=== PATIENT | male | born 1960 | race Caucasian/White ===

== ENCOUNTER → 2016-11-17 | Outpatient (CLI) | payer OTHER ==
[~2016-11-17] MED LIST: ACET325T96 PO; CARB100C2 PO; CARB1CAP10 PO; CARB1SOL8 OTB; CARB200T PO; CLIN1SOL TOP; CLIN300C10 PO; CLR10 PO; DOCU-94 PO; KETO2SHA5 TOP; KPP/1000 PO; LEVE750T PO; LOPE-5 PO; LORA-741 PO; MAGNSUS5 PO; MCRK20 PO; MOML PO; PANT40TA PO; POLY335019 PO; POTA-335 PO; PROM25TA16 PO; PROP10TA7 PO; SERT25TA PO; TOPI50TA16 PO; [UNRECOGNIZED DRUG - CODE] NAE; [UNRECOGNIZED DRUG - CODE] PO; [UNRECOGNIZED DRUG - CODE] PO; [UNRECOGNIZED DRUG - CODE] TOP
--- NOTE | 2016-11-17 16:49 | DIAGNOSTIC IMAGING REPORT ---
LEFT THIRD FINGER 3 VIEWS CLINICAL HISTORY: Third finger bruising and swelling. FINDINGS: 3 views of the left third finger are obtained. No prior studies are available for comparison at the time of dictation. The skeletal structures appear osteopenic. No fracture is seen. Arthritic change is noted in the interphalangeal joints, distal greater than proximal. The third metacarpophalangeal joint appears preserved. Soft tissue swelling is present in the distal finger. No radiodense foreign body is identified. No subcutaneous gas is seen. IMPRESSION: Soft tissue swelling and arthritic change as above. No fracture is identified. Electronically signed by: Vaughn Santana M.D. 11/17/2016 4:48 PM Dictated Date/Time: 11/17/2016 4:47 PM
== END | disposition home or self-care (01) ==
LOC: C.RAD 16:16
PROVIDERS: ATTEND Plastic Surgery
DX: S69.92XA Unspecified injury of left wrist, hand and finger(s), initial encounter (principal); X58.XXXA Exposure to other specified factors, initial encounter; R58 Hemorrhage, not elsewhere classified; M79.9 Soft tissue disorder, unspecified

== ENCOUNTER 2016-11-18 20:07 | Emergency (ER) | payer OTHER ==
[~2016-11-18 20:07] MED LIST changes: -CARB100C2 PO; -CARB200T PO; -LEVE750T PO; -LORA-741 PO; -MCRK20 PO; -MOML PO; -SERT25TA PO
[2016-11-18 20:19] VITALS: TEMP 37
[2016-11-18 21:18] LABS: BASO % 0.2 %; BASO ABS # 0.01 K/uL (0-0.2); COMPLETE YES; EOS % 1.8 %; HEMATOCRIT 37.6 % (42-52); IG% 0.2 %; LYMPH % 16.2 %; LYMPH ABS # 0.88 K/uL (1.2-3.4); MEAN CELL VOLUME 93.5 fL (80-100); MEAN CORPUSCULAR HEMOGLOBIN 32.8 pg (25-34); MEAN CORPUSCULAR HGB CONC 35.1 g/dl (32-36); MEAN PLATELET VOLUME 9.5 fL (7.4-10.4); MONO % 7.4 %; NEUT % 74.2 %; PLATELET COUNT 194 K/uL (130-400); RED BLOOD COUNT 4.02 M/uL (4.7-6.1); WHITE BLOOD COUNT 5.42 K/uL (4.8-10.8)
[2016-11-18 21:35] LABS: BLOOD UREA NITROGEN 12 mg/dl (7-18); BUN/CREATININE RATIO 13.6 (10-20); CARBON DIOXIDE 22 mmol/L (21-32); CHLORIDE 108 mmol/L (98-107); CREATININE 0.91 mg/dl (0.60-1.40); GLUCOSE 126 mg/dl (70-99); POTASSIUM 3.9 mmol/L (3.5-5.1); SODIUM 141 mmol/L (136-145)
--- NOTE | 2016-11-18 21:44 | DIAGNOSTIC IMAGING REPORT ---
HEAD CT NONCONTRAST CT DOSE: 1768.17 mGy.cm HISTORY: Seizure. Head injury. eval for bleed TECHNIQUE: Multiaxial CT images of the head were performed without the use of intravenous contrast. Automated exposure control was utilized for this study. Comparison: Head CT 05/23/2015. Findings: The paranasal sinuses and mastoid air cells are clear. The calvarium and skull base are intact. The ventricles and sulci are within normal limits. There is no mass, hematoma, midline shift, or acute infarct. Impression: No acute intracranial abnormality. Electronically signed by: Joe Fleming M.D. 11/18/2016 9:43 PM Dictated Date/Time: 11/18/2016 9:36 PM
[2016-11-18] MEDS ORDERED: LEVETIRACETAM 500 MG TAB PO STA (22:06)
[2016-11-18 23:13] VITALS: BP 128/84; PULSE 81; O2SAT 98
--- NOTE | 2016-11-19 01:18 | EMERGENCY ROOM VISIT NOTE ---
History Report prepared by Sharla: Annie Sheikh Under the Supervision of: Dr. Noman Dc M.D. First contact with patient: 20:25 Chief Complaint: SEIZURE Stated Complaint: SEIZURE Nursing Triage Summary: patient resides at [facility]. had 3minute long witnessed seizure. sent to be evaluated for small abrasion behind left ear, bloody nose, and [facility] reports seizures becoming more frequent. Patient currently back to baseline behavior. Non verbal. History of Present Illness The patient is a 56 year old male who presents to the Emergency Room with complaints of an episode of a seizure occurring just [employer]. The patient is currently residing at a [facility]. His caregiver is present in the ED and the history is obtained from her. She states that he had a seizure tonight that lasted for about 3 minutes. He fell out of his wheelchair at the onset of the seizure and was thrashing violently on the floor for 3 minutes. She tried to protect him with pillows, but the patient hit his head during the episode. She notes an abrasion behind the patient's left ear. The patient has a history of seizures. His caregiver estimates that last year he had 5 seizures, but already this year he has had 5. She spoke to her education supervisor betty about scheduling follow-up with the patient's neurologist. The patient sees Dr. Morgan. He is currently taking Tegretol, Keppra, and Topamax. Source of History: caregiver History Limited By: other (the patient is nonverbal) Onset: C[employer] BE[employer] CLE[employer]ER Position: other (global) Quality: other (seizure) Timing: other (episode) Modifying Factors (Relieving): other (time) Note: Pt hit his head and has an abrasion behind the left ear. Review of Systems Limited because the patient is nonverbal Past Medical & Surgical Medical Problems: (1) Allergic rhinitis (2) Aphasia (3) Cerebral palsy (4) Epilepsy (5) GERD (gastroesophageal reflux disease) (6) Intellectual disability (7) Microcephaly (8) Paroxysmal atrial tachycardia (9) Scoliosis (10) Seizure (11) Spina bifida (12) Ventricular tachycardia Surgical Problems: (1) S/p dermoid cyst removal (2) S/p small bowel endoscopy with biopsy Family History Patient reports no known family medical history. Social History Smoking Status: Unknown if Ever Smoked Marital Status: single Housing Status: senior care Occupation Status: disabled Current/Historical Medications Scheduled Carbamazepine Extended Release (Tegretol Xr), 300 MG PO BID Clindamycin Phosphate (Topical (Cleocin-T), 1 APPLN TOP DAILY Docusate Sodium (Colace), 2 CAP PO HS Ketoconazole (Topical) (Nizoral), 1 APPLN TOP 2XWK Pantoprazole (Protonix), 40 MG PO DAILY Potassium Chloride (Micro-K Ext Rel), 20 MEQ PO DAILY Propranolol (Inderal), 10 MG PO BID Saline ([place] Saline Nasal), 1 APPLN JESSICA BID Scheduled PRN Acetaminophen Tab (Tylenol), 650 MG PO Q6 PRN for MAZARIEGOS/MILD PAIN/FEVER Calcium Carbonate-Mag Hydrox (Mylanta Aline), 30 ML PO Q4 PRN for GAS RELIEF Diphenhydramine-Phenylephrine- (Tylenol Allergy Multi-Sym), 2 TABS PO BID PRN for Nasal Congestion Loperamide Hcl (Imodium A-D), 2 MG PO UD PRN for Diarrhea Loratadine (Claritin), 10 MG PO DAILY PRN for ALLERGIC REACTION Magnesium Hydroxide (Milk Of Magnesia), 30 ML PO DAILY PRN for Constipation Polyethylene Glycol 3350 (Miralax), 17 GM PO DAILY PRN for Constipation Promethazine HCl (Promethazine HCl), 25 MG PO Q6H PRN for Nausea or Vomiting Allergies Coded Allergies: Metoclopramide (Verified Allergy, Unknown, UNKNOWN, 11/18/16) Physical Exam Vital Signs Date Time Temp Pulse Resp B/P Pulse Ox O2 Delivery O2 Flow Rate FiO2 11/18/16 23:13 81 16 128/84 98 11/18/16 21:37 98 14 11/18/16 21:25 136/90 11/18/16 20:37 101 19 97 Room Air 11/18/16 20:28 104 11/18/16 20:19 37.0 108 18 171/99 96 Room Air 11/18/16 20:17 171/99 Physical Exam Constitutional: Vital signs reviewed. Eyes: Pupils are equal round reactive to light. Conjunctiva are noninjected. ENT: No scalp lacerations noted in the hair on examination. Abrasion behind the left ear. Pharynx is clear without erythema or exudate. Mucous membranes are moist. Neck supple without meningeal signs. No midline tenderness to the cervical spine. Respiratory: Clear to auscultation bilaterally. Breath sounds are equal bilaterally. Cardiovascular: Regular rate and rhythm. No rubs or gallops. GI: Soft, nondistended and nontender. Bowel sounds are present. Musculoskeletal: No peripheral edema. No lower extremity tenderness. No CVA tenderness. Integumentary: No cyanosis. Neurological: The patient is awake and alert, does not follow any commands. Psychiatric: Unable to assess, pt non-verbal. Medical Decision & Procedures ER Provider Diagnostic Interpretation: Radiology results as stated below per my review and the radiologist's interpretation: HEAD CT NONCONTRAST CT DOSE: 1768.17 mGy.cm HISTORY: Seizure. Head injury. eval for bleed TECHNIQUE: Multiaxial CT images of the head were performed without the use of intravenous contrast. Automated exposure control was utilized for this study. Comparison: Head CT 05/23/2015. Findings: The paranasal sinuses and mastoid air cells are clear. The calvarium and skull base are intact. The ventricles and sulci are within normal limits. There is no mass, hematoma, midline shift, or acute infarct. Impression: No acute intracranial abnormality. Electronically signed by: Joe Fleming M.D. 11/18/2016 9:43 PM Dictated Date/Time: 11/18/2016 9:36 PM Laboratory Results 11/18/16 20:55 Red Blood Count 4.02, Mean Corpuscular Volume 93.5, Mean Corpuscular Hemoglobin 32.8, Mean Corpuscular Hemoglobin Concent 35.1, Mean Platelet Volume 9.5, Neutrophils (%) (Auto) 74.2, Lymphocytes (%) (Auto) 16.2, Monocytes (%) (Auto) 7.4, Eosinophils (%) (Auto) 1.8, Basophils (%) (Auto) 0.2, Neutrophils # (Auto) 4.02, Lymphocytes # (Auto) 0.88, Monocytes # (Auto) 0.40, Eosinophils # (Auto) 0.10, Basophils # (Auto) 0.01 11/18/16 20:55 Test 11/18/16 20:55 White Blood Count 5.42 K/uL (4.8-10.8) Red Blood Count 4.02 M/uL (4.7-6.1) Hemoglobin 13.2 g/dL (14.0-18.0) Hematocrit 37.6 % (42-52) Mean Corpuscular Volume 93.5 fL (80-100) Mean Corpuscular Hemoglobin 32.8 pg (25-34) Mean Corpuscular Hemoglobin Concent 35.1 g/dl (32-36) Platelet Count 194 K/uL (130-400) Mean Platelet Volume 9.5 fL (7.4-10.4) Neutrophils (%) (Auto) 74.2 % Lymphocytes (%) (Auto) 16.2 % Monocytes (%) (Auto) 7.4 % Eosinophils (%) (Auto) 1.8 % Basophils (%) (Auto) 0.2 % Neutrophils # (Auto) 4.02 K/uL (1.4-6.5) Lymphocytes # (Auto) 0.88 K/uL (1.2-3.4) Monocytes # (Auto) 0.40 K/uL (0.11-0.59) Eosinophils # (Auto) 0.10 K/uL (0-0.5) Basophils # (Auto) 0.01 K/uL (0-0.2) RDW Standard Deviation 43.1 fL (36.4-46.3) RDW Coefficient of Variation 12.6 % (11.5-14.5) Immature Granulocyte % (Auto) 0.2 % Immature Granulocyte # (Auto) 0.01 K/uL (0.00-0.02) Anion Gap 11.0 mmol/L (3-11) Estimated GFR () 110.3 Estimated GFR (Non- 95.2 BUN/Creatinine Ratio 13.6 (10-20) Calcium Level 9.0 mg/dl (8.5-10.1) Carbamazepine (Tegretol) Level 10.0 mcg/ml (4-12) Laboratory results as reviewed by me. Medications Administered Medications (Trade) Dose Ordered Sig/Melia Route Start Time Stop Time Status Last Admin Dose Admin Levetiracetam (Keppra Tab) 500 mg NOW STAT PO 11/18/16 22:06 11/18/16 22:07 DC 11/18/16 22:27 500 MG ED Course 2024: The patient was evaluated in room A2. A complete history and physical exam was performed. 2202: I spoke with Dr. Kaur of neurology. We discussed the patient's case. She recommended giving him a dose of Keppra in the ED tonight and having his labor/excavator call the office in the morning for further instructions. 2205: Keppra 500 mg PO 2208: I reassessed the patient at this time. He is resting comfortably. I discussed the results and treatment plan with the patient's labor/excavator. I answered all pertaining questions that she had. She expressed understanding and verbalized agreement. The patient will be discharged home and his labor/excavator will call Dr. Morgan's office in the morning for follow-up. Medical Decision this is a 56-year-old male presents with seizure and head injury. Differential diagnosis includes medication noncompliance, breakthrough seizure, intracranial hemorrhage, skull fracture, intracranial mass, metabolic derangement. I did perform a limited focused review of portions of the patient's old chart on the electronic medical record. The patient has had no recent pertinent visits to this hospital. I did evaluate the patient as noted above. I did obtain history from the patient's labor/excavator is the patient is nonverbal. He did have a breakthrough seizure and head injury. He is back to his baseline according to his labor/excavator. I did order and review the patient's blood work as noted in the electronic medical record. His Tegretol level is therapeutic. His Her level is pending. I did order a CT of the head. I did review the images myself as well as the radiology report as described above. There is no evidence of acute intracranial hemorrhage. I did discuss the test results with the patient's labor/excavator. I did discuss the case with the neurologist on-call. She recommended giving him an additional dose of Keppra here and having his neurologist decide on any changes on his antiepileptics. The labor/excavator will call Dr. Morgan in the morning to see if he wants to change his dosing given the frequency of his seizures. I did treat patient with Keppra 500 mg. He was discharged with head injury precautions with his labor/excavator. Consults Time Called: 2199 Consulting Physician: Dr. Kaur Returned Call: [address] Kaur of neurology. We discussed the patient's case. She recommended giving him a dose of Keppra in the ED tonight and having his labor/excavator call the office in the morning for further instructions. Impression Primary Impression: Seizure Additional Impression: Head injury Scribe Attestation The scribe's documentation has been prepared under my direct and personally reviewed by me in its entirety. I confirm that the note above accurately reflects all work, treatment, procedures, and medical decision making performed by me. Departure Information Dispostion Home / Self-Care Referrals Baltazar Arreola D.O. (PCP) Forms HOME CARE DOCUMENTATION FORM, IMPORTANT VISIT INFORMATION Patient Instructions ED Head Injury Closed, ED Seizure Recurrent, My [facility] Additional Instructions You have been examined and treated today on an emergency basis only. This is not a substitute for, or an effort to provide, complete comprehensive medical care. It is impossible to recognize and treat all injuries or illnesses in a single emergency department visit. It is therefore important that you follow up closely with your physician. Call tomorrow morning to discuss possible changes and seizure medications with Dr. Morgan. Return for worsening symptoms or if you develop fever, vomiting, or any other concerning symptoms. Problem Qualifiers Additional Impression: Head injury Encounter type: initial encounter Qualified Codes: S09.90XA - Unspecified injury of head, initial encounter
== END 2016-11-18 23:14 | disposition home or self-care (01) ==
LOC: EDBD 20:07 → C.EDA 20:07
DX: R56.9 Unspecified convulsions (principal); S00.412A Abrasion of left ear, initial encounter; W05.0XXA Fall from non-moving wheelchair, initial encounter; Y92.098 Other place in other non-institutional residence as the place of occurrence of the external cause; Q05.9 Spina bifida, unspecified; Q02 Microcephaly; F79 Unspecified intellectual disabilities; G80.9 Cerebral palsy, unspecified; K21.9 Gastro-esophageal reflux disease without esophagitis; Z79.899 Other long term (current) drug therapy

== ENCOUNTER 2016-11-26 15:58 | Emergency (ER) | payer OTHER ==
[~2016-11-26 15:58] MED LIST changes: -CARB1SOL8 OTB; -CLIN300C10 PO; -KPP/1000 PO; -TOPI50TA16 PO; -[UNRECOGNIZED DRUG - CODE] TOP
[2016-11-26 16:09] VITALS: TEMP 36.8
[2016-11-26] MEDS ORDERED: TOPI50TA16 PO (16:47)
[2016-11-26] MEDS ORDERED: MOML PO (16:47)
[2016-11-26] MEDS ORDERED: MCRK20 PO (16:47)
[2016-11-26] MEDS ORDERED: LEVE750T PO (16:49)
--- NOTE | 2016-11-26 18:20 | DIAGNOSTIC IMAGING REPORT ---
HEAD CT NONCONTRAST CT DOSE: 1229.36 mGy.cm HISTORY: Trauma. Change in mental status. fall TECHNIQUE: Multiaxial CT images of the head were performed without the use of intravenous contrast. Comparison: None. Findings: The paranasal sinuses and mastoid air cells are clear. The calvarium and skull base are intact. The ventricles and sulci are within normal limits. There is no mass, hematoma, midline shift, or acute infarct. Impression: No acute intracranial abnormality. Electronically signed by: Skinny Mata M.D. 11/26/2016 6:19 PM Dictated Date/Time: 11/26/2016 6:18 PM
[2016-11-26 18:23] VITALS: BP 145/99; PULSE 74; O2SAT 96
--- NOTE | 2016-11-26 18:23 | DIAGNOSTIC IMAGING REPORT ---
CERVICAL SPINE CT CT DOSE: HISTORY: Trauma fall TECHNIQUE: Multiaxial CT images of the cervical spine were performed and reformatted in the sagittal and coronal plane without the use of contrast. COMPARISON: None. FINDINGS: No fractures. No subluxation. Prevertebral soft tissues and the C1-C2 interval are intact. No pneumothorax. Moderate degenerative disc change IMPRESSION: Degenerative change. No acute process. Electronically signed by: Skinny Mata M.D. 11/26/2016 6:22 PM Dictated Date/Time: 11/26/2016 6:20 PM
--- NOTE | 2016-11-26 19:15 | EMERGENCY ROOM VISIT NOTE ---
History Report prepared by Sharla: Shama Felder Under the Supervision of: Dr. Donny White D.O. 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 He was in his wheelchair and he started to go out the door. He encountered a step and fell forwards with the wheelchair. The caregiver reports that the wheelchair might have aided in breaking his fall. He hit his knees and head on the pavement. He does not seem to be in any pain according to his caregiver and has indicated that he would like to go home. He is not on blood thinners. He has a history of seizures. He is up to date on his immunizations. The history is limited due to the patient's aphasia. 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 Review of Systems ROS unobtainable due to patient's aphasia. Past Medical & Surgical Medical Problems: (1) Allergic rhinitis (2) Aphasia (3) Cerebral palsy (4) Epilepsy (5) GERD (gastroesophageal reflux disease) (6) Intellectual disability (7) Microcephaly (8) Paroxysmal atrial tachycardia (9) Scoliosis (10) Seizure (11) Spina bifida (12) Ventricular tachycardia Surgical Problems: (1) S/p dermoid cyst removal (2) S/p small bowel endoscopy with biopsy Family History Patient reports no known family medical history. Social History Smoking Status: Never Smoker Marital Status: single Housing Status: alf Occupation Status: disabled Current/Historical Medications Scheduled Carbamazepine Extended Release (Tegretol Xr), 300 MG PO BID Clindamycin Phosphate (Topical (Cleocin-T), 1 APPLN TOP DAILY Docusate Sodium (Colace), 2 CAP PO HS Ketoconazole (Topical) (Nizoral), 1 APPLN TOP 2XWK Levetiracetam (Keppra), 1,500 MG PO BID Pantoprazole (Protonix), 40 MG PO DAILY Potassium Chloride (Klor-Con M20), 20 MEQ PO DAILY Propranolol (Inderal), 10 MG PO BID Saline ([place] Saline Nasal), 1 APPLN JESSICA BID Topiramate (Topamax), 50 MG PO BID Scheduled PRN Acetaminophen Tab (Tylenol), 650 MG PO Q6 PRN for MAZARIEGOS/MILD PAIN/FEVER Calcium Carbonate-Mag Hydrox (Mylanta [place]), 30 ML PO Q4 PRN for GAS RELIEF Diphenhydramine-Phenylephrine- (Tylenol Allergy Multi-Sym), 2 TABS PO BID PRN for Nasal Congestion Loperamide Hcl (Imodium A-D), 2 MG PO UD PRN for Diarrhea Loratadine (Claritin), 10 MG PO DAILY PRN for ALLERGIC REACTION Magnesium Hydroxide (Milk Of Magnesia), 30 ML PO DAILY PRN for Constipation Polyethylene Glycol 3350 (Miralax), 17 GM PO DAILY PRN for Constipation Promethazine HCl (Promethazine HCl), 25 MG PO Q6H PRN for Nausea or Vomiting Allergies Coded Allergies: Metoclopramide (Verified Allergy, Unknown, UNKNOWN, 11/18/16) Physical Exam Vital Signs Date Time Temp Pulse Resp B/P Pulse Ox O2 Delivery O2 Flow Rate FiO2 11/26/16 18:23 74 16 145/99 96 Room Air 11/26/16 16:09 36.8 67 20 170/96 98 Room Air Physical Exam GENERAL: Patient is awake, alert, and in no acute distress. Patient is resting comfortably and showing no signs of anxiety HEAD: Abrasion and forehead hematoma noted on the right. EYES: The conjunctivae are clear. The pupils are round and reactive. EARS, NOSE, MOUTH AND THROAT: The nose is without any evidence of any deformity. Mucous membranes are moist tongue is midline NECK: The neck is nontender and supple. RESPIRATORY: Normal respiratory effort is noted there is no evidence of wheezing rhonchi or rales CARDIOVASCULAR: Regular rate and rhythm noted there no murmurs rubs or gallops normal S1 normal S2 GASTROINTESTINAL: The abdomen is soft. Bowel sounds are present in all quadrants. Abdomen is nontender BACK: No midline tenderness or or step-off noted range of motion in flexion extension as well as rotation no signs of muscle spasm noted MUSCULOSKELETAL/EXTREMITIES: No deformity or decreased ROM in either upper or lower extremities. SKIN: Abrasions on lower extremities. No active bleeding. No pedal edema. NEUROLOGIC: Patient is at baseline according to caregiver. Medical Decision & Procedures ER Provider Diagnostic Interpretation: Radiology results as stated below per my review and radiologist interpretation: CERVICAL SPINE CT CT DOSE: HISTORY: Trauma fall TECHNIQUE: Multiaxial CT images of the cervical spine were performed and reformatted in the sagittal and coronal plane without the use of contrast. COMPARISON: None. FINDINGS: No fractures. No subluxation. Prevertebral soft tissues and the C1-C2 interval are intact. No pneumothorax. Moderate degenerative disc change IMPRESSION: Degenerative change. No acute process. Electronically signed by: Skinny Mata M.D. 11/26/2016 6:22 PM Dictated Date/Time: 11/26/2016 6:[address] CT DOSE: 1229.36 mGy.cm HISTORY: Trauma. Change in mental status. fall TECHNIQUE: Multiaxial CT images of the head were performed without the use of intravenous contrast. Comparison: None. Findings: The paranasal sinuses and mastoid air cells are clear. The calvarium and skull base are intact. The ventricles and sulci are within normal limits. There is no mass, hematoma, midline shift, or acute infarct. Impression: No acute intracranial abnormality. Electronically signed by: Skinny Mata M.D. 11/26/2016 6:19 PM Dictated Date/Time: 11/26/2016 6:18 PM ED Course 1634: The patient was evaluated in room A4. A complete history and physical examination were performed. 1830: Upon reevaluation, the patient is resting comfortably. I discussed the results and treatment plan with his caregiver. She verbalized agreement of the treatment plan. He was discharged home. Medical Decision Prior records/ancillary studies reviewed. Triage Nursing notes reviewed. Additional history obtained from the patient's caregiver. The patient's history was concerning for traumatic injury Differential diagnosis: Etiologies such as fracture, dislocation, intra-abdominal, pneumothorax, intrathoracic , intracranial, neurologic, as well as other traumatic pathologies were entertained. The patient is a 56-year-old male who presented to the emergency department for an evaluation of head injury. The patient presented with a caregiver. He had a fall forward out of the wheelchair. The patient struck his knees as well as his forehead. He did have signs of head trauma. He has a history of seizure. There is no document and loss of consciousness but the patient had signs of head injury and has a history of seizure as well as previous history of altered mental status. The patient did not appear to have an alteration in mental status compared to baseline according to the caregiver. I did feel the radiographic study should be obtained because the patient cannot be properly evaluated due to his baseline mental status and the signs of trauma. For this reason CT was obtained. I discussed the patient's review graphic studies with the caregiver. They were encouraged to continue all medications as prescribed. They were also encouraged to follow-up with primary care physician next week for reevaluation. There are also encouraged to return to the emergency apartment immediately if symptoms change worsen or the need arises. Impression Primary Impression: Fall Additional Impressions: Facial contusion Closed head injury Scribe Attestation The scribe's documentation has been prepared under my direction and personally reviewed by me in its entirety. I confirm that the note above accurately reflects all work, treatment, procedures, and medical decision making performed by me. Departure Information Dispostion Home / Self-Care Referrals Baltazar Arreola D.O. (PCP) Forms HOME CARE DOCUMENTATION FORM, IMPORTANT VISIT INFORMATION Patient Instructions My [facility] Additional Instructions Continue all medications as prescribed. Follow up with Dr Arreola for recheck next week Problem Qualifiers
== END 2016-11-26 18:50 | disposition home or self-care (01) ==
LOC: EDBD 15:58 → C.EDA 16:02
DX: S00.83XA Contusion of other part of head, initial encounter (principal); S09.90XA Unspecified injury of head, initial encounter; W05.0XXA Fall from non-moving wheelchair, initial encounter; S80.211A Abrasion, right knee, initial encounter; S80.212A Abrasion, left knee, initial encounter; G40.909 Epilepsy, unspecified, not intractable, without status epilepticus; G80.9 Cerebral palsy, unspecified; R47.01 Aphasia; J30.9 Allergic rhinitis, unspecified; K21.9 Gastro-esophageal reflux disease without esophagitis; F79 Unspecified intellectual disabilities; Q02 Microcephaly; I47.1 Supraventricular tachycardia; M41.9 Scoliosis, unspecified; Q05.9 Spina bifida, unspecified; I47.2 Ventricular tachycardia

== ENCOUNTER 2017-05-19 18:43 | Emergency (ER) | payer OTHER ==
[~2017-05-19] VITALS: Ht 162.6 cm; Wt 59.7 kg
[~2017-05-19 18:43] MED LIST changes: +LEVE750T PO; -MAGNSUS5 PO; +MCRK20 PO; +MOML PO; -POTA-335 PO; +TOPI50TA16 PO
[2017-05-19 18:55] VITALS: TEMP 37.1; Ht 162.6 cm; Wt 59.7 kg
[2017-05-19] MEDS ORDERED: LIDOCAINE/EPINEPH/TETRACAINE 1 EA SYR EXT STA (19:04)
[2017-05-19 19:44] LABS: COMPLETE YES; EOS % 2.1 %; HEMATOCRIT 38.7 % (42-52); IG% 0.2 %; LYMPH % 22.1 %; LYMPH ABS # 1.28 K/uL (1.2-3.4); MEAN CELL VOLUME 94.4 fL (80-100); MEAN CORPUSCULAR HEMOGLOBIN 32.9 pg (25-34); MEAN CORPUSCULAR HGB CONC 34.9 g/dl (32-36); MEAN PLATELET VOLUME 9.3 fL (7.4-10.4); MONO % 10.2 %; NEUT % 65.4 %; PLATELET COUNT 198 K/uL (130-400); WHITE BLOOD COUNT 5.78 K/uL (4.8-10.8)
[2017-05-19 20:04] LABS: CALCIUM 9.2 mg/dl (8.5-10.1); CREATININE 0.67 mg/dl (0.60-1.40); MAGNESIUM 2.2 mg/dl (1.8-2.4); POTASSIUM 3.8 mmol/L (3.5-5.1)
[2017-05-19] MEDS ORDERED: CARB200T PO (20:11)
[2017-05-19] MEDS ORDERED: CARB100C2 PO (20:11)
[2017-05-19] MEDS ORDERED: SERT25TA PO (20:11)
[2017-05-19 20:14] LABS: THYROID STIMULATING HORMONE 1.06 uIu/ml (0.300-4.500)
--- NOTE | 2017-05-19 20:14 | DIAGNOSTIC IMAGING REPORT ---
CT HEAD WITHOUT CONTRAST (CT) CLINICAL HISTORY: SEIZURE COMPARISON STUDY: 11/26/2016 TECHNIQUE: Axial CT of the brain is performed from the vertex to the skull base. IV contrast was not administered for this examination. A dose lowering technique was utilized adhering to the principles of ALARA. CT DOSE: 1612.45 mGy.cm FINDINGS: The study is compromised due to patient motion artifact. No intra or extra-axial mass lesions are visualized. There is no CT evidence of acute cortical infarction. There is no evidence of midline shift. There is no acute hemorrhage. No calvarial fractures are visualized. There is no evidence of pathologic ventricular dilatation. There is no evidence of acute sinusitis IMPRESSION: Examination limited secondary to patient motion artifact. No acute intracranial findings. Electronically signed by: Grady Prasad M.D. 05/19/2017 8:13 PM Dictated Date/Time: 05/19/2017 8:11 PM
[2017-05-19] MEDS ORDERED: LORAZEPAM 0.5 MG TAB SL STA (20:26)
[2017-05-19 20:28] VITALS: O2SAT 100
[2017-05-19] MEDS ORDERED: LEVETIRACETAM 500 MG TAB PO STA (20:28)
[2017-05-19] MEDS ORDERED: TOPIRAMATE 50 MG TAB PO STA (20:28)
[2017-05-19] MEDS ORDERED: CARBAMAZEPINE 200 MG TAB PO ONE (20:30)
[2017-05-19] MEDS ORDERED: LORA-741 PO (22:15)
[2017-05-19 22:37] VITALS: BP 128/68; PULSE 84; O2SAT 100
--- NOTE | 2017-05-20 00:23 | EMERGENCY ROOM VISIT NOTE ---
History Report prepared by Sharla: Henrique Laguerre Under the Supervision of: Dr. Victoriano Evans M.D. First contact with patient: 18:47 Stated Complaint: SEIZURE/ HEAD LAC History of Present Illness The patient is a 57 year old male who presents to the Emergency Room with complaints of a resolved seizure that occurred prior to arrival. The patient's nurse states that he has a history of seizures. He reports the patient had a seizure for a solid three minutes. The nurse notes that the patient was flailing his body and hit his head on his wheel chair. The patient reports that he the patient slid out of his wheelchair to the floor. He notes that the patient acquired a minor laceration to the posterior aspect of his head. He states the patient was also blotchy all over, but this is baseline for seizures. The nurse reports that patient typically has a seizure every three months, but it has only been one month since his most recent episode. He notes the patient is typically in a wheelchair. The nurse states the patient is non- verbal, but he is capable of responding to basic commands. He reports the patient typically grinds his teeth before having a seizure. The nurse notes that he could tell the patient was about to have a seizure. He denies LOC and fevers. Source of History: caregiver Onset: prior to arrival Position: other (global) Quality: other (seizure) Timing: resolved Associated Symptoms: + rash, No LOC, No fevers Review of Systems ROS is unobtainable secondary to the patient being non-verbal. Past Medical & Surgical Medical Problems: (1) Allergic rhinitis (2) Aphasia (3) Cerebral palsy (4) Epilepsy (5) GERD (gastroesophageal reflux disease) (6) Intellectual disability (7) Microcephaly (8) Paroxysmal atrial tachycardia (9) Scoliosis (10) Seizure (11) Spina bifida (12) Ventricular tachycardia Surgical Problems: (1) S/p dermoid cyst removal (2) S/p small bowel endoscopy with biopsy Family History Patient reports no known family medical history. Social History Smoking Status: Never Smoker Marital Status: single Housing Status: fpc Occupation Status: disabled Current/Historical Medications Scheduled Carbamazepine (Tegretol), 100 MG PO BID Carbamazepine (Tegretol), 200 MG PO BID Clindamycin Phosphate (Topical (Cleocin-T), 1 APPLN TOP DAILY Levetiracetam (Keppra), 1,500 MG PO BID Lorazepam (Ativan), 0.5 MG PO UD Pantoprazole (Protonix), 40 MG PO DAILY Potassium Chloride (Klor-Con M20), 20 MEQ PO DAILY Propranolol (Inderal), 10 MG PO BID Saline ([place] Saline Nasal), 1 APPLN JESSICA BID Sertraline (Zoloft), 25 MG PO QAM Topiramate (Topamax), 50 MG PO BID Scheduled PRN Acetaminophen Tab (Tylenol), 650 MG PO Q6 PRN for MAZARIEGOS/MILD PAIN/FEVER Loratadine (Claritin), 10 MG PO DAILY PRN for ALLERGIC REACTION Polyethylene Glycol 3350 (Miralax), 17 GM PO DAILY PRN for Constipation Allergies Coded Allergies: Metoclopramide (Verified Allergy, Unknown, UNKNOWN, 05/19/17) Physical Exam Vital Signs Date Time Temp Pulse Resp B/P (MAP) Pulse Ox O2 Delivery O2 Flow Rate FiO2 05/19/17 22:37 84 18 128/68 100 05/19/17 20:28 100 Room Air 05/19/17 20:28 100 Room Air 05/19/17 20:18 97 20 167/94 100 Room Air 05/19/17 19:30 100 22 147/100 98 Room Air 05/19/17 19:01 96 05/19/17 18:55 37.1 102 20 174/104 Room Air Physical Exam GENERAL: Awake, alert, well-appearing, in no distress HENT: Normocephalic, atraumatic. Oropharynx unremarkable. EYES: Normal conjunctiva. Sclera non-icteric. Dysconjugate gaze. NECK: Supple. No nuchal rigidity. FROM. No JVD. RESPIRATORY: Clear to auscultation. CARDIAC: Regular rate, normal rhythm. Extremities warm and well perfused. Pulses equal. ABDOMEN: Soft, non-distended. No tenderness to palpation. No rebound or guarding. No masses. RECTAL: Deferred. MUSCULOSKELETAL: Chest examination reveals no tenderness. The back is symmetrical on inspection without obvious abnormality. There is no CVA tenderness to palpation. No joint edema. UPPER EXTREMITIES: Atraumatic. Contracture and muscular atrophy bilaterally. LOWER EXTREMITIES: Small abrasion to the right dorsal aspect of the foot, contracture and muscular atrophy bilaterally. No edema. No discoloration. NEURO: Normal sensorium. No sensory or motor deficits noted. SKIN: No rash or jaundice noted. Medical Decision & Procedures ER Provider Diagnostic Interpretation: Radiology results as stated below per my review and radiologist interpretation CT HEAD WITHOUT CONTRAST (CT) CLINICAL HISTORY: SEIZURE COMPARISON STUDY: 11/26/2016 TECHNIQUE: Axial CT of the brain is performed from the vertex to the skull base. IV contrast was not administered for this examination. A dose lowering technique was utilized adhering to the principles of ALARA. CT DOSE: 1612.45 mGy.cm FINDINGS: The study is compromised due to patient motion artifact. No intra or extra-axial mass lesions are visualized. There is no CT evidence of acute cortical infarction. There is no evidence of midline shift. There is no acute hemorrhage. No calvarial fractures are visualized. There is no evidence of pathologic ventricular dilatation. There is no evidence of acute sinusitis IMPRESSION: Examination limited secondary to patient motion artifact. No acute intracranial findings. Electronically signed by: Grady Prasad M.D. 05/19/2017 8:13 PM Dictated Date/Time: 05/19/2017 8:11 PM Laboratory Results 05/19/17 19:28 Red Blood Count 4.10, Mean Corpuscular Volume 94.4, Mean Corpuscular Hemoglobin 32.9, Mean Corpuscular Hemoglobin Concent 34.9, Mean Platelet Volume 9.3, Neutrophils (%) (Auto) 65.4, Lymphocytes (%) (Auto) 22.1, Monocytes (%) (Auto) 10.2, Eosinophils (%) (Auto) 2.1, Basophils (%) (Auto) 0.0, Neutrophils # (Auto ) 3.78, Lymphocytes # (Auto) 1.28, Monocytes # (Auto) 0.59, Eosinophils # (Auto ) 0.12, Basophils # (Auto) 0.00 05/19/17 19:28 Test 05/19/17 19:28 05/19/17 21:04 White Blood Count 5.78 K/uL (4.8-10.8) Red Blood Count 4.10 M/uL (4.7-6.1) Hemoglobin 13.5 g/dL (14.0-18.0) Hematocrit 38.7 % (42-52) Mean Corpuscular Volume 94.4 fL (80-100) Mean Corpuscular Hemoglobin 32.9 pg (25-34) Mean Corpuscular Hemoglobin Concent 34.9 g/dl (32-36) Platelet Count 198 K/uL (130-400) Mean Platelet Volume 9.3 fL (7.4-10.4) Neutrophils (%) (Auto) 65.4 % Lymphocytes (%) (Auto) 22.1 % Monocytes (%) (Auto) 10.2 % Eosinophils (%) (Auto) 2.1 % Basophils (%) (Auto) 0.0 % Neutrophils # (Auto) 3.78 K/uL (1.4-6.5) Lymphocytes # (Auto) 1.28 K/uL (1.2-3.4) Monocytes # (Auto) 0.59 K/uL (0.11-0.59) Eosinophils # (Auto) 0.12 K/uL (0-0.5) Basophils # (Auto) 0.00 K/uL (0-0.2) RDW Standard Deviation 42.3 fL (36.4-46.3) RDW Coefficient of Variation 12.3 % (11.5-14.5) Immature Granulocyte % (Auto) 0.2 % Immature Granulocyte # (Auto) 0.01 K/uL (0.00-0.02) Anion Gap 6.0 mmol/L (3-11) Est Creatinine Clear Calc Drug Dose 104.4 ml/min Estimated GFR () 125.4 Estimated GFR (Non- 108.2 BUN/Creatinine Ratio 17.0 (10-20) Calcium Level 9.2 mg/dl (8.5-10.1) Phosphorus Level 2.0 mg/dl (2.5-4.9) Magnesium Level 2.2 mg/dl (1.8-2.4) Thyroid Stimulating Hormone (TSH) 1.060 uIu/ml (0.300-4.500) Carbamazepine (Tegretol) Level 8.1 mcg/ml (4-12) Laboratory results reviewed by me Medications Administered Medications (Trade) Dose Ordered Sig/Melia Route Start Time Stop Time Status Last Admin Dose Admin Lorazepam (Ativan Tab) 0.5 mg NOW STAT SL 05/19/17 20:26 05/19/17 20:28 DC 05/19/17 20:32 0.5 MG Levetiracetam (Keppra Tab) 1,500 mg NOW STAT PO 05/19/17 20:28 05/19/17 20:30 DC 05/19/17 20:57 1,500 MG Carbamazepine (Tegretol Tab) 500 mg NOW ONCE PO 05/19/17 20:30 05/19/17 20:31 DC 05/19/17 20:36 500 MG Topiramate (Topamax Tab) 50 mg NOW STAT PO 05/19/17 20:28 05/19/17 20:30 DC 05/19/17 20:57 50 MG ED Course 1902: The patient was evaluated in room B03B. A complete history and physical exam was performed. 1903: Ordered Tetracaine/Epinephrine/Lidocaine 1 ea EXT 2024: I discussed the patient's case with Dr. Ramirez, [facility]. She suggested the patient be given his evening medication plus and addition 200mg of Tegretol and 0.5 mg of Ativan. She also suggests the patient's dose of Tegretol be increased to 400 mg twice daily, in addition to the rest of his current medications. She notes the patient should receive a prescription for as needed Ativan. While speaking with Dr. Ramirez, the patient experienced another seizure. He had a short, 40 second daze the suddenly broke. No tonic clonic activity. 2025: Ordered Lorazepam 0.5 mg SL 2027: Ordered Topiramate 50mg PO, Levetiracetam 1500mg PO 2029: Ordered Carbamazepine 500mg PO 2203: I reevaluated the patient. He is doing much better. Discussed results and discharge instructions with his nurse: he verbalized understanding and agreement. The patient is ready for discharge. Medical Decision Prior records/ancillary studies reviewed. Patient placed in seizure precautions immediately upon arrival. Nursing notes reviewed and agree them. Additional history obtained from the patient's dye feeder. The patient's history was concerning for a possible seizure. Differential diagnosis: Etiologies such as infection, hypoglycemia, electrolyte abnormalities, cardiac sources, intracerebral event, trauma, toxicologic, neurologic, as well as others were entertained. Physical examination: As above. The patient had a mild occipital contusion and a abrasion ER treatment provided: Sublingual Ativan 0.5 mg Carbamazepine 500 mg orally Keppra 1500 mg orally Topamax 50 mg orally On reassessment the patient was at his baseline Diagnostics interpretation by me: The labs revealed an unremarkable CBC and chemistry panel. Tegretol level therapeutic. Topamax and Keppra levels sent for neurology follow-up Imaging studies: CT as above. Somewhat limited. Additional imaging was not done as the patient is acting appropriately. Consultation: A consultation was placed with the neurologist, Dr. Hannah Ramirez. The case was discussed and diagnostics were reviewed. She recommended an additional 200 mg of carbamazepine tonight and then to start 400 mg twice a day. She also agreed with the Ativan and recommended the patient have 0.5 mg twice a day when necessary for any seizure issues. The patient has a history of seizures and experienced another episode. Medications will be modified. Close outpatient follow-up in the office will be followed. By the evaluation outlined above emergent etiologies such as infection, hypoglycemia, electrolyte abnormalities, cardiac sources, intracerebral event, toxicologic, neurologic,as well as others were deemed relatively unlikely. The dye feeder was informed about the findings as listed above. All questions were answered. Return instructions were outlined and the patient was discharged in stable condition. Referral: The patient was referred back to his primary and neurologist for a recheck of the current condition. Medication Reconcilliation Current Medication List: was personally reviewed by me Consults Time Called: 2018 Consulting Physician: Dr. Ramirez, [facility] Returned Call: 2024 I discussed the [facility]'s [facility]. She suggested the patient be given his evening medication plus and addition 200mg of Tegretol and 0.5 mg of Ativan. She also suggests the patient's dose of Tegretol be increased to 400 mg twice daily, in addition to the rest of his current medications. She notes the patient should receive a prescription for as needed Ativan. Impression Primary Impression: Breakthrough seizure Scribe Attestation The scribe's documentation has been prepared under my direction and personally reviewed by me in its entirety. I confirm that the note above accurately reflects all work, treatment, procedures, and medical decision making performed by me. Departure Information Dispostion Home / Self-Care Prescriptions Lorazepam (ATIVAN) 0.5 Mg Tab 0.5 MG PO UD, #20 TAB Prov: Victoriano Evans MD 05/19/17 Referrals Baltazar Arreola D.O. (PCP) Forms HOME CARE DOCUMENTATION FORM, IMPORTANT VISIT INFORMATION Additional Instructions Continue the current dose for the Keppra and Topamax. Increase the carbamazepine dose to 400 mg twice a day. Start Ativan 0.5 mg under the tongue as needed for seizure. If given prior to the start of the seizure, when he is exhibiting his typical warning symptoms, this may prevent the episode. If he does have a breakthrough seizure he should receive a second dose of the Ativan in about 6-8 hours. Continue other medications Call Dr. Morgan's office tomorrow for a follow-up appointment. Tell the traveling secretary Dr. Hannah Ramirez was on-call and recommended a follow-up due to the medication changes. Return to the ER for seizures, headache, passing out, difficulty breathing, fevers, or as needed.
[2017-05-24 03:25] LABS: TOPIRAMATE (TOPAMAX)**30965 1.2 mcg/mL
== END 2017-05-19 22:38 | disposition home or self-care (01) ==
LOC: EDBD 18:43 → C.EDB 18:44
DX: G40.919 Epilepsy, unspecified, intractable, without status epilepticus (principal); G80.9 Cerebral palsy, unspecified; K21.9 Gastro-esophageal reflux disease without esophagitis; F79 Unspecified intellectual disabilities; Z98.890 Other specified postprocedural states; Z79.899 Other long term (current) drug therapy

== ENCOUNTER 2022-04-25 18:45 | Observation (INO) ==
--- NOTE | 2022-04-25 21:22 | Emergency Department Note ---
History of Present Illness General Chief complaint: Vomiting Stated complaint: VOMITING LIQUIDS, CAN'T KEEP FOOD DOWN Time Seen by Provider: 04/25/22 20:54 History of Present Illness 62-year-old male presents to the ED with a chief complaint of vomiting. The patient has a history of microcephaly and is aphasic. He provides no information.According to the caregiver who presents with the patient, the patient had grapes around 10 or 11 AM. Shortly after that anything that he would attempt to eat or drink would come up almost immediately. This occurred about 8 times throughout the day today. This evening in the waiting room, the patient spit up his saliva twice. No other specific complaints at this time. Patient is unable to provide any information due to his baseline intellectual disability. Home Medications Medication Instructions Recorded Confirmed Type acetaminophen 325 mg tablet 650 mg PO Q6H PRN Fever Or Pain 10/19/18 04/21/22 History carbamide peroxide 6.5 % ear drops 2 drp OTB 3XWK 10/19/18 04/21/22 History (Debrox) clindamycin phosphate 1 % topical 1 applic topical QAM 10/19/18 04/21/22 History solution (Cleocin T) dextromethorphan-guaifenesin 5 5 ml PO QID PRN Congestion 02/08/19 04/21/22 Hi story mg-100 mg/5 mL oral liquid (Robitussin Cough-Chest Congestion DM) ketoconazole 2 % shampoo (Nizoral) 1 applic topical 2XWK 02/08/19 04/21/22 History sodium chloride 0.65 % nasal spray 1 spray intranasal TID PRN Dry 02/08/19 04/21/22 History aerosol (Saline Nasal) Nasal Passages sodium chloride-aloe vera nasal 1 spray intranasal BID 02/08/19 04/21/22 History spray ([place] Saline Gel nasal spray) docusate sodium 100 mg capsule 100 mg PO QAM 03/12/19 04/21/22 History (Stool Softener) [id number] 5 2 tab PO DIRECTED PRN Cold 04/07/19 04/21/22 History mg-10 mg-325 mg tablet (Tylenol Symptoms Cold Max Day) loperamide 2 mg capsule (Imodium 2 mg PO UD PRN Diarrhea 06/03/19 04/21/22 History A-D) Jobst Stockings (misc) #1 ea 09/18/19 04/05/22 Rx Wheelchair (Manual) (Manual #1 ea 11/07/19 04/05/22 Rx Wheelchair) diaper,brief,adult,disposable #100 ea 03/19/20 04/05/22 Rx (Briefs Medium) aluminum-mag hydroxide-simethicone 30 ml PO Q4H PRN UPSET 03/25/20 04/21/22 History 400 mg-400 mg-40 mg/5 mL oral susp STOMACH/VOMITING (Antacid-Simethicone) polyethylene glycol 3350 17 17 g PO .COMPLEX #765 grams 09/03/21 04/21/22 Rx gram/dose oral powder calcium carbonate 500 mg-vitamin 1 tab PO QAM 10/01/21 04/21/22 History D3 10 mcg (400 unit) tablet cyanocobalamin (vitamin B-12) 1,000 mcg PO QAM 10/01/21 04/21/22 History 1,000 mcg capsule diazepam 5 mg-7.5 mg-10 mg rectal 7.5 mg AR UD PRN seizure activity 10/05/21 04/21/22 Rx kit (Diastat AcuDial) #1 ea aspirin 81 mg tablet,delayed 81 mg PO QAM 11/03/21 04/21/22 History release lorazepam 0.5 mg tablet 0.5 mg PO BID #60 tabs 11/03/21 04/21/22 Rx triamcinolone acetonide 0.1 % 1 applic topical BID PRN rash #30 11/03/21 04/21/22 Rx topical cream grams levetiracetam 750 mg tablet 1,500 mg PO BID 90 days #360 tabs 11/17/21 04/21/22 Rx (Keppra) topiramate 100 mg tablet 100 mg PO BID 90 days #180 tabs 11/17/21 04/21/22 Rx miscellaneous medical supply 1 ea miscellaneous ONCE #1 ea 11/27/21 04/21/22 Rx potassium chloride 20 mEq See Rx Instructions .Route 12/01/21 04/21/22 Rx tablet,extended release(part/cryst) .COMPLEX #28 tabs propranolol 10 mg tablet See Rx Instructions .Route 12/01/21 04/21/22 Rx .COMPLEX #56 tabs emollient combination no.92 1 applic topical BID Dry skin #710 12/15/21 04/21/22 Rx (Lubriderm Daily Moisture lotion) mL divalproex 250 mg tablet,extended 250 mg PO QAM 04/12/22 04/21/22 History release 24 hr (Depakote ER) divalproex 500 mg tablet,extended 500 mg PO QAM 04/12/22 04/21/22 History release 24 hr (Depakote ER) loratadine 10 mg tablet (Claritin) 10 mg PO QAM allergies 04/12/22 04/21/22 History neomycin-bacitracn Zn-polymyx 3.5 1 applic topical BID 04/12/22 04/21/22 History mg-400 unit-5,000 unit/gram top oint (Triple Antibiotic) sertraline 50 mg tablet 50 mg PO QAM 04/12/22 04/21/22 History white petrolatum 41 % topical 1 applic topical HS 04/12/22 04/21/22 History ointment (Aquaphor Healing) pantoprazole 40 mg tablet,delayed 40 mg PO DAILYBB #90 tabs 04/15/22 04/21/22 Rx release (Protonix) Allergies Allergy/AdvReac Type Severity Reaction Status Date / Time metoclopramide Allergy Intermediate Agitation Verified 04/21/22 05:53 grapefruit Allergy Mild nasal Verified 04/21/22 05:53 congestion chocolate flavor Allergy Unknown Unknown Verified 04/21/22 05:53 Past Med/Surg History Medical History Allergic rhinitis Alternating exotropia Anemia Aphasia Bipolar disorder Bladder carcinoma s/p TURBT 10/2021 Cataracts, both eyes Cerebral palsy Chronic constipation Chronic periodontitis Dermatitis Epilepsy GERD (gastroesophageal reflux disease) History of prematurity Hyperlipidemia Microcephaly Mood disorder PAD (peripheral artery disease) Paraplegia Paroxysmal atrial tachycardia Ptosis, left eyelid Scoliosis Severe intellectual disabilities Spina bifida Surgical History H/O transurethral destruction of bladder lesion 12/2021 History of removal of neck cyst Family History Other Family history non-contributory Social History Smoking Status: Never smoker Hx Alcohol Use: No Hx Substance Use: No Preferred Language: Romansh Communication Ability: Unable Visual 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 Limited Administrative Assistant 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 Required: No Beliefs That Will Affect Care: None Current Living Situation: Personal Care Facility Current Living Situation Comment: [facility] current occupational status: disabled Feels Safe at Home: Yes caffeine: Yes Dental Care, Regularly: Yes Assistive Devices: Wheelchair Physical Exam Vital Signs Vital Signs - 24 hr 04/25/22 18:47 04/25/22 22:00 Temperature 36.8 C Temperature Source Temporal Artery Scan Pulse Rate 116 H Pulse Rate [Right Finger] 72 Respiratory Rate 19 20 Respiratory Effort / Characteristics Non-Labored Respiratory Depth Normal Blood Pressure 150/82 H Blood Pressure [Right Arm] 148/92 H Blood Pressure Mean 104 Blood Pressure Mean [Right Arm] 110 Pulse Oximetry 96 99 Oxygen Delivery Method Room Air Room Air Sepsis Recent Fever Within 48 Hours No Sepsis New/Unexplained Change in Mental Status N/A Sepsis Action Taken by Nursing No Action Required CONSTITUTIONAL/VITAL SIGNS: Reviewed / noted above. GENERAL: Non-toxic in appearance. The patient was given a small amount of water orally. Within 30 seconds, the patient spit it back out along with some foamy saliva. INTEGUMENTARY: Warm, dry, and [place]. HEAD: Normocephalic. EYES: without scleral icterus or trauma. ENT/OROPHARYNX: clear and moist. LYMPHADENOPATHY/NECK: Is supple without lymphadenopathy or meningismus. RESPIRATORY: Clear to auscultation bilaterally. No increased work of breathing. CARDIOVASCULAR: Regular rate and rhythm. GI/ABDOMEN: Soft and nontender. EXTREMITIES: Warm and well perfused. BACK: No CVA tenderness. NEUROLOGICAL: Per baseline. Nonverbal. Wheelchair-bound. MUSCULOSKELETAL: Normally developed with good muscle tone. TRIAGE NURSING DOCUMENTATION REVIEWED. Medical Decision Making Differential Diagnosis Differential includes esophageal obstruction, aspiration, dehydration, other. Medical Records Attestation: I reviewed the patient's medical records. Home Medications Current Medication List: was personally reviewed by me Laboratory Data Attestation: I reviewed the patient's lab results. Result diagrams: 04/25/22 21:51 04/25/22 21:51 Lab Results 04/25/22 04/25/22 04/25/22 Range/Units 21:51 21:51 21:55 WBC 8.11 (4.8-10.8) K/ul RBC 4.33 L (4.63-6.08) M/uL Hgb 12.5 L (14.0-18.0) g/dl Hct 40.2 (40.1-51.0) % MCV 92.8 (80.0-100.0) fL MCH 28.9 (25.0-34.0) pg MCHC 31.1 L (32.0-36.0) g/dL RDW Std Deviation 50.3 H (36.4-46.3) fL RDW Coeff of [place] 14.6 H (11.5-14.5) % Plt Count 322 (130-400) K/uL MPV 10.6 (9.4-12.4) fL Immature Gran % (Auto) 0.2 % Neut % (Auto) 54.5 % Lymph % (Auto) 30.7 % [place] % (Auto) 9.1 % Eos % (Auto) 4.9 % Baso % (Auto) 0.6 % Neut # (Auto) 4.41 (1.4-6.5) K/uL Lymph # (Auto) 2.49 (1.2-3.4) K/uL [place] # (Auto) 0.74 (0.24-0.82) K/uL Eos # (Auto) 0.40 (0-0.50) K/uL Baso # (Auto) 0.05 (0-0.2) K/uL Immature Gran # (Auto) 0.02 (0.00-0.02) K/uL Sodium 144 (136-145) mmol/L Potassium 3.6 (3.5-5.1) mmol/L Chloride 113 H (98-107) mmol/L Carbon Dioxide 22 (21-32) mmol/L Anion Gap 9 (3-11) BUN 17 (6-23) mg/dl Creatinine 0.71 (0.6-1.4) mg/dl Est Cr Clr Drug Dosing 92.6 ml/min Est GFR ( Amer) 118.2 ml/min Est GFR (Non-Af Amer) 102.0 ml/min BUN/Creatinine Ratio 23.9 H (10-20) Glucose 91 (70-99(Fasting)) mg/dl Calcium 9.7 (8.5-10.1) mg/dl Total Bilirubin 0.5 (0.2-1.0) mg/dl AST 19 (13-39) U/L ALT 21 (7-52) U/L Alkaline Phosphatase 119 H (34-104) U/L Total Protein 8.1 (6.0-8.3) gm/dl Albumin 4.6 (3.4-5.0) gm/dl Globulin 3.5 (2.5-4.0) gm/dl Albumin/Globulin Ratio 1.3 (0.9-2) Lipase 28 (11-82) U/L SARS-CoV-2, RNA, NAAT NEGATIVE (NEGATIVE) MDM Narrative 62-year-old male presents to the ED with a chief complaint of vomiting ever since eating grapes this morning. He seems to have symptoms consistent with an esophageal obstruction as he spit out saliva twice in the emergency department. When he was given a small amount of water here, he spit it out almost immediately with some foamy saliva. The patient's chest x-ray did not show acute process. CBC and chemistry panel was unremarkable. COVID test was negative. The patient during his stay had an episode where he vomited up the grapes that were causing the obstruction. He was unable to swallow a cup of water without difficulty. At this point he seems to be better. He is felt to b e stable for discharge. Impression & Plan Acute esophageal obstruction Discharge Plan Visit Data Chief Complaint: Vomiting Stated Complaint: VOMITING LIQUIDS, CAN'T KEEP FOOD DOWN ED Provider: Partha Vieira Discharge Problem: Acute esophageal obstruction Patient Disposition: Being Evaluated by Surgeon Discharge Instructions Activity Restrictions/Additional Instructions: Activity as tolerated. Eat and drink as typical. Avoid grapes and similar items in the future. Make sure all food items are cut up very small. Follow-up with GI specialist for recheck. Dr. Mccracken is listed below. Forms Stand Alone Forms: My [employer] Prescriptions Prescriptions: No Action (DME) misc Misc See Rx Instructions .ROUTE .MEDSUPPLY Qty: 1 0RF Rx Instructions: As directed- May cut Keppra tabs and Potassium tabs in HALF for easier admin. (DME) Briefs Medium Misc See Rx Instructions .ROUTE .MEDSUPPLY Qty: 100 5RF Rx Instructions: Medium Briefs polyethylene glycol 3350 17 gram/dose powder 17 g PO .COMPLEX Qty: 765 5RF Rx Instructions: 17 grams PO Every 3 days and as needed daily; if not bowel movement in 3 days diazepam [Diastat AcuDial] 5-7.5-10 mg kit 7.5 mg AR UD PRN (Reason: seizure activity) Qty: 1 0RF Rx Instructions: Give 1 dose rectally if seizure lasts longer than 5 minutes and call 911 topiramate 100 mg tablet 100 mg PO BID 90 Days Qty: 180 1RF levetiracetam [Keppra] 750 mg tablet 1,500 mg PO BID 90 Days Qty: 360 1RF miscellaneous medical supply Misc 1 ea miscellaneous ONCE Qty: 1 0RF Rx Instructions: REPLACEMENT ARM PAD FOR A WHEELCHAIR propranolol 10 mg tablet See Rx Instructions .ROUTE .COMPLEX Qty: 56 5RF Dose Instruction: TAKE ONE TABLET BY MOUTH TWICE DAILY. *RAPID HEART* Rx Instructions: TAKE ONE TABLET BY MOUTH TWICE DAILY. *RAPID HEART* potassium chloride 20 mEq tablet,ER particles/crystals See Rx Instructions .ROUTE .COMPLEX Qty: 28 5RF Dose Instruction: TAKE ONE TAB BY MOUTH DAILY *POTASSIUM SUPP* Rx Instructions: TAKE ONE TAB BY MOUTH DAILY *POTASSIUM SUPP* Lubriderm Daily Moisture Lotion 1 applic topical BID Qty: 710 5RF pantoprazole [Protonix] 40 mg tablet,delayed release (DR/EC) 40 mg PO DAILYBB Qty: 90 3RF Rx Instructions: Take 1 tablet by mouth daily, one hour prior to the first meal of the day. (DME) Manual Wheelchair Device See Rx Instructions .ROUTE .MEDSUPPLY Qty: 1 0RF Rx Instructions: As directed aspirin 81 mg tablet,delayed release (DR/EC) 81 mg PO QAM lorazepam 0.5 mg tablet 0.5 mg PO BID Qty: 60 5RF triamcinolone acetonide 0.1 % cream 1 applic TOPICAL BID PRN (Reason: rash) Qty: 30 1RF Rx Instructions: Do not apply in same spot for longer than two weeks. acetaminophen 325 mg Tablet 650 mg PO Q6H MDD 3 GRAMS/24 HOURS PRN (Reason: Fever Or Pain) Rx Instructions: NEEDED FOR HEADACHE/MINOR ACHES AND PAIN OR TEMPERATURE GREATER THAN 100 F Debrox 6.5 % Drops 2 drp OTB 3XWK clindamycin phosphate [Cleocin T] 1 % solution 1 applic topical QAM Rx Instructions: APPLY DIRECTED TO SCALP ketoconazole [Nizoral] 2 % Shampoo 1 applic TOPICAL 2XWK Rx Instructions: USE SHAMPOO TO SCALP EVERY TUESDAY AND TUESDAY Robitussin Cough-Chest Francisco Javier DM 5-100 mg/5 mL Liquid 5 ml PO QID PRN (Reason: Congestion) Saline Nasal 0.65 % Aerosol,[place] 1 spray INTRANASAL TID PRN (Reason: Dry Nasal Passages) Bow Saline Gel [place],Non-Aerosol 1 spray INTRANASAL BID docusate sodium [Stool Softener] 100 mg capsule 100 mg PO QAM loperamide [Imodium A-D] 2 mg capsule 2 mg PO UD PRN (Reason: Diarrhea) Label Comments: TAKE 2 TABLETS AT ONSET OF LOOSE STOOL THEN TAKE 1 TABLET AFTER EACH LOOSE BOWEL MOVEMENT. TAKE NO MORE THAN 4 DOSES IN 2 DAYS. Tylenol Cold Max Day 5-10-325 mg Tablet 2 tab PO DIRECTED PRN (Reason: Cold Symptoms) alum-mag hydroxide-simeth [Antacid-Simethicone] 400-400-40 mg/5 mL Suspension 30 ml PO Q4H PRN (Reason: UPSET STOMACH/VOMITING) divalproex [Depakote ER] 500 mg tablet extended release 24 hr 500 mg PO QAM Rx Instructions: TOTAL DOSE 750 MG--TAKES WITH 250 MG TAB. sertraline 50 mg tablet 50 mg PO QAM loratadine [Claritin] 10 mg tablet 10 mg PO QAM divalproex [Depakote ER] 250 mg tablet extended release 24 hr 250 mg PO QAM Rx Instructions: TOTAL DOSE 750 MG--TAKES WITH 500 MG TAB. Aquaphor Healing 41 % ointment 1 applic TOPICAL HS Triple Antibiotic 3.5mg-400 unit- 5,000 unit/gram Ointment 1 applic TOPICAL BID calcium carbonate-vitamin D3 500 mg(1,250mg) -400 unit tablet 1 tab PO QAM cyanocobalamin (vitamin B-12) 1,000 mcg capsule 1,000 mcg PO QAM Referrals Referrals: Sofia Xie MD [Primary Care Provider] - Carlos Mccracken MD [Physician] -
[2022-04-25 22:14] LABS: Basophils # (auto) 0.05 K/uL (0-0.2); Basophils % (auto) 0.6 %; Eosinophils % (auto) 4.9 %; Hematocrit (blood only) 40.2 % (40.1-51.0); Hemoglobin 12.5 g/dl (14.0-18.0); Immature Granulocytes # (auto) 0.02 K/uL (0.00-0.02); Immature Granulocytes % (auto) 0.2 %; Lymphocytes # (auto) 2.49 K/uL (1.2-3.4); Lymphocytes % (auto) 30.7 %; Mean Corpuscular Hemoglobin 28.9 pg (25.0-34.0); Mean Corpuscular Hgb Conc 31.1 g/dL (32.0-36.0); Mean Corpuscular Volume 92.8 fL (80.0-100.0); Mean Platelet Volume 10.6 fL (9.4-12.4); Monocytes # (auto) 0.74 K/uL (0.24-0.82); Monocytes % (auto) 9.1 %; Neutrophils # (auto) 4.41 K/uL (1.4-6.5); Neutrophils % (auto) 54.5 %; Platelet Count 322 K/uL (130-400); RDW Coefficient of Variation 14.6 % (11.5-14.5); RDW Standard Deviation 50.3 fL (36.4-46.3); Red Blood Count 4.33 M/uL (4.63-6.08); White Blood Count 8.11 K/ul (4.8-10.8)
[2022-04-25 22:33] LABS: Albumin Globulin Ratio 1.3 (0.9-2); Albumin Level 4.6 gm/dl (3.4-5.0); BUN Creatinine Ratio 23.9 (10-20); Bilirubin,Total 0.5 mg/dl (0.2-1.0); Calcium 9.7 mg/dl (8.5-10.1); Creatinine Clr Calc Pharmacy 92.6 ml/min; Est GFR (African American) 118.2 ml/min; Globulin 3.5 gm/dl (2.5-4.0); Potassium 3.6 mmol/L (3.5-5.1); Total Protein 8.1 gm/dl (6.0-8.3)
--- NOTE | 2022-04-26 00:10 | Anesthesiology Consultation ---
Date of Service April 26, 2022 Assessment & Plan Chart Review Chart Review: Acceptable Risk for Surgery and Patient NOT seen in Pre Admission Testing Consults Requested none ASA [id number] Proposed Anesthesia Anesthesia Type: General Risk / Benefits Reviewed With: PT / POA / Parent / Guardian, Accepts Plan and Informed Consent Obtained History Surgery Operation Date: 04/25/22 11:10 Proposed Procedures p Esophagogastroduodenoscopy Food Bolus - Carlos Mccracken MD Height/Weight Height: 5 ft 4 in Weight: 59.4 kg Allergies Allergy/AdvReac Type Severity Reaction Status Date / Time metoclopramide Allergy Intermediate Agitation Verified 04/21/22 05:53 grapefruit Allergy Mild nasal Verified 04/21/22 05:53 congestion chocolate flavor Allergy Unknown Unknown Verified 04/21/22 05:53 Medications Home Medications Medication Instructions Recorded Confirmed Last Taken acetaminophen 325 mg tablet 650 mg PO Q6H PRN Fever Or Pain 10/19/18 04/21/22 Unknown carbamide peroxide 6.5 % ear drops 2 drp OTB 3XWK 10/19/18 04/21/22 04/20/22 07: 30 (Debrox) clindamycin phosphate 1 % topical 1 applic topical QAM 10/19/18 04/21/22 04/20/22 07:30 solution (Cleocin T) dextromethorphan-guaifenesin 5 5 ml PO QID PRN Congestion 02/08/19 04/21/22 Unknown mg-100 mg/5 mL oral liquid (Robitussin Cough-Chest Congestion DM) ketoconazole 2 % shampoo (Nizoral) 1 applic topical 2XWK 02/08/19 04/21/22 10/06/21 sodium chloride 0.65 % nasal spray 1 spray intranasal TID PRN Dry 02/08/19 04/21/22 Unknown aerosol (Saline Nasal) Nasal Passages sodium chloride-aloe vera nasal 1 spray intranasal BID 02/08/19 04/21/22 07:30 spray ([place] Saline Gel nasal spray) docusate sodium 100 mg capsule 100 mg PO QAM 03/12/19 04/21/22 04/20/22 07:30 (Stool Softener) mbjexiouwxgeb-WA-wlyjstweandaj 5 2 tab PO DIRECTED PRN Cold 04/07/19 04/21/22 Unknown mg-10 mg-325 mg tablet (Tylenol Symptoms Cold Max Day) loperamide 2 mg capsule (Imodium 2 mg PO UD PRN Diarrhea 06/03/19 04/21/22 Unknown A-D) Jobst Stockings (misc) #1 ea 09/18/19 04/05/22 Unknown Wheelchair (Manual) (Manual #1 ea 11/07/19 04/05/22 Unknown Wheelchair) diaper,brief,adult,disposable #100 ea 03/19/20 04/05/22 Unknown (Briefs Medium) aluminum-mag hydroxide-simethicone 30 ml PO Q4H PRN UPSET 03/25/20 04/21/22 Unknown 400 mg-400 mg-40 mg/5 mL oral susp STOMACH/VOMITING (Antacid-Simethicone) polyethylene glycol 3350 17 17 g PO .COMPLEX #765 grams 09/03/21 04/21/22 Unknown gram/dose oral powder calcium carbonate 500 mg-vitamin 1 tab PO QAM 10/01/21 04/21/22 04/20/22 07:30 D3 10 mcg (400 unit) tablet cyanocobalamin (vitamin B-12) 1,000 mcg PO QAM 10/01/21 04/21/22 04/20/22 07:30 1,000 mcg capsule diazepam 5 mg-7.5 mg-10 mg rectal 7.5 mg CO UD PRN seizure activity 10/05/21 04/21/22 Unknown kit (Diastat AcuDial) #1 ea aspirin 81 mg tablet,delayed 81 mg PO QAM 11/03/21 04/21/22 04/17/22 07:30 release lorazepam 0.5 mg tablet 0.5 mg PO BID #60 tabs 11/03/21 04/21/22 04/20/22 19:00 triamcinolone acetonide 0.1 % 1 applic topical BID PRN rash #30 11/03/21 04/21/22 Unknown topical cream grams levetiracetam 750 mg tablet 1,500 mg PO BID 90 days #360 tabs 11/17/21 04/21/22 04/20/22 19:00 (Keppra) topiramate 100 mg tablet 100 mg PO BID 90 days #180 tabs 11/17/21 04/21/22 04/20/22 19:00 miscellaneous medical supply 1 ea miscellaneous ONCE #1 ea 11/27/21 04/21/22 Unknown potassium chloride 20 mEq See Rx Instructions .Route 12/01/21 04/21/22 04/20/22 07:30 tablet,extended release(part/cryst) .COMPLEX #28 tabs propranolol 10 mg tablet See Rx Instructions .Route 12/01/21 04/21/22 04/20/22 07:30 .COMPLEX #56 tabs emollient combination no.92 1 applic topical BID Dry skin #710 12/15/21 04/21/22 04/20/22 07:30 (Lubriderm Daily Moisture lotion) mL divalproex 250 mg tablet,extended 250 mg PO QAM 04/12/22 04/21/22 04/20/22 07:30 release 24 hr (Depakote ER) divalproex 500 mg tablet,extended 500 mg PO QAM 04/12/22 04/21/22 04/20/22 07:30 release 24 hr (Depakote ER) loratadine 10 mg tablet (Claritin) 10 mg PO QAM allergies 04/12/22 04/21/22 04/20/22 07:30 neomycin-bacitracn Zn-polymyx 3.5 1 applic topical BID 04/12/22 04/21/22 Unknown mg-400 unit-5,000 unit/gram top oint (Triple Antibiotic) sertraline 50 mg tablet 50 mg PO QAM 04/12/22 04/21/22 04/20/22 07:30 white petrolatum 41 % topical 1 applic topical HS 04/12/22 04/21/22 Unknown ointment (Aquaphor Healing) pantoprazole 40 mg tablet,delayed 40 mg PO DAILYBB #90 tabs 04/15/22 04/21/22 04/20/22 07:30 release (Protonix) NPO Date Last Intake of Fluids: 04/26/22 Time Last Intake of Fluids: 22:30 Date Last Intake of Solids: 04/26/22 Time Last Intake of Solids: 10:30 Past Medical History Medical History Allergic rhinitis Alternating exotropia Anemia Aphasia Bipolar disorder Bladder carcinoma s/p TURBT 10/2021 Cataracts, both eyes Cerebral palsy Chronic constipation Chronic periodontitis Dermatitis Epilepsy GERD (gastroesophageal reflux disease) History of prematurity Hyperlipidemia Microcephaly Mood disorder PAD (peripheral artery disease) Paraplegia Paroxysmal atrial tachycardia Ptosis, left eyelid Scoliosis Severe intellectual disabilities Spina bifida Exercise / Class Metabolic Activity II 4-5 Yardwork/Stairs/Walk up hill Past Family History Family History Other Family history non-contributory Past Surgical History Surgical History H/O transurethral destruction of bladder lesion 12/2021 History of removal of neck cyst Past Anesthesia History No Hx of Anesthesia Complications and No Family Hx of Anesthesia Complications History of PONV No Hx of PONV and No Hx of Motion Sickness Social History Smoking Status: Never smoker Hx Alcohol Use: No Hx Substance Use: No Physical Exam Vital Signs Last Vital Signs Temp 36.8 C 04/25/22 18:47 Pulse 90 04/25/22 23:51 Resp 20 04/25/22 23:51 BP 150/73 H 04/25/22 23:51 Pulse Ox 100 04/25/22 23:51 O2 Del Method 04/25/22 23:51 ENMT Mouth: no dentition abnormality Thyromental Distance: > or= 3.5 Finger Breadths Mallampati Class: II Neck normal visual inspection Respiratory normal respiratory effort Auscultation: lungs clear to auscultation bilaterally Cardiovascular Rate/Rhythm: regular rate and regular rhythm Musculoskeletal Extremities: + limited ROM of extremities spastic quad Neurologic spastic quad Psychiatric Orientation: alert; + not oriented x 3 non verbal Testing Laboratory Results 04/25/22 21:51 04/25/22 21:51
--- NOTE | 2022-04-26 00:18 | History & Physical Report ---
Date of Service April 26, 2022 Assessment & Plan (1) Food impaction of esophagus: Plan: EGD today Consent obtained from health care marketing manager. needs to be admitted overnight in view of his medical comorbids and neurological illness after general anasthesia. History of Present Illness Primary Care Provider: Sofia Xie MD 62 years old male patient, nonverbal due to neurological illness with cerebral palsy, brought to the hospital by his nurse caregiver for dysphagia and suspected impaction of food in the esophagus. Allergies Allergy/AdvReac Type Severity Reaction Status Date / Time metoclopramide Allergy Intermediate Agitation Verified 04/21/22 05:53 grapefruit Allergy Mild nasal Verified 04/21/22 05:53 congestion chocolate flavor Allergy Unknown Unknown Verified 04/21/22 05:53 Home Medications Medication Instructions Recorded Confirmed Type acetaminophen 325 mg tablet 650 mg PO Q6H PRN Fever Or Pain 10/19/18 04/21/22 History carbamide peroxide 6.5 % ear drops 2 drp OTB 3XWK 10/19/18 04/21/22 History (Debrox) clindamycin phosphate 1 % topical 1 applic topical QAM 10/19/18 04/21/22 History solution (Cleocin T) dextromethorphan-guaifenesin 5 5 ml PO QID PRN Congestion 02/08/19 04/21/22 Hi story mg-100 mg/5 mL oral liquid (Robitussin Cough-Chest Congestion DM) ketoconazole 2 % shampoo (Nizoral) 1 applic topical 2XWK 02/08/19 04/21/22 History sodium chloride 0.65 % nasal spray 1 spray intranasal TID PRN Dry 02/08/19 04/21/22 History aerosol (Saline Nasal) Nasal Passages sodium chloride-aloe vera nasal 1 spray intranasal BID 02/08/19 04/21/22 History spray ([place] Saline Gel nasal spray) docusate sodium 100 mg capsule 100 mg PO QAM 03/12/19 04/21/22 History (Stool Softener) naevdelfqzsha-LB-fhuwdptxqwdth 5 2 tab PO DIRECTED PRN Cold 04/07/19 04/21/22 History mg-10 mg-325 mg tablet (Tylenol Symptoms Cold Max Day) loperamide 2 mg capsule (Imodium 2 mg PO UD PRN Diarrhea 06/03/19 04/21/22 History A-D) Jobst Stockings (misc) #1 ea 09/18/19 04/05/22 Rx Wheelchair (Manual) (Manual #1 ea 11/07/19 04/05/22 Rx Wheelchair) diaper,brief,adult,disposable #100 ea 03/19/20 04/05/22 Rx (Briefs Medium) aluminum-mag hydroxide-simethicone 30 ml PO Q4H PRN UPSET 03/25/20 04/21/22 History 400 mg-400 mg-40 mg/5 mL oral susp STOMACH/VOMITING (Antacid-Simethicone) polyethylene glycol 3350 17 17 g PO .COMPLEX #765 grams 09/03/21 04/21/22 Rx gram/dose oral powder calcium carbonate 500 mg-vitamin 1 tab PO QAM 10/01/21 04/21/22 History D3 10 mcg (400 unit) tablet cyanocobalamin (vitamin B-12) 1,000 mcg PO QAM 10/01/21 04/21/22 History 1,000 mcg capsule diazepam 5 mg-7.5 mg-10 mg rectal 7.5 mg VA UD PRN seizure activity 10/05/21 04/21/22 Rx kit (Diastat AcuDial) #1 ea aspirin 81 mg tablet,delayed 81 mg PO QAM 11/03/21 04/21/22 History release lorazepam 0.5 mg tablet 0.5 mg PO BID #60 tabs 11/03/21 04/21/22 Rx triamcinolone acetonide 0.1 % 1 applic topical BID PRN rash #30 11/03/21 04/21/22 Rx topical cream grams levetiracetam 750 mg tablet 1,500 mg PO BID 90 days #360 tabs 11/17/21 04/21/22 Rx (Keppra) topiramate 100 mg tablet 100 mg PO BID 90 days #180 tabs 11/17/21 04/21/22 Rx miscellaneous medical supply 1 ea miscellaneous ONCE #1 ea 11/27/21 04/21/22 Rx potassium chloride 20 mEq See Rx Instructions .Route 12/01/21 04/21/22 Rx tablet,extended release(part/cryst) .COMPLEX #28 tabs propranolol 10 mg tablet See Rx Instructions .Route 12/01/21 04/21/22 Rx .COMPLEX #56 tabs emollient combination no.92 1 applic topical BID Dry skin #710 12/15/21 04/21/22 Rx (Lubriderm Daily Moisture lotion) mL divalproex 250 mg tablet,extended 250 mg PO QAM 04/12/22 04/21/22 History release 24 hr (Depakote ER) divalproex 500 mg tablet,extended 500 mg PO QAM 04/12/22 04/21/22 History release 24 hr (Depakote ER) loratadine 10 mg tablet (Claritin) 10 mg PO QAM allergies 04/12/22 04/21/22 History neomycin-bacitracn Zn-polymyx 3.5 1 applic topical BID 04/12/22 04/21/22 History mg-400 unit-5,000 unit/gram top oint (Triple Antibiotic) sertraline 50 mg tablet 50 mg PO QAM 04/12/22 04/21/22 History white petrolatum 41 % topical 1 applic topical HS 04/12/22 04/21/22 History ointment (Aquaphor Healing) pantoprazole 40 mg tablet,delayed 40 mg PO DAILYBB #90 tabs 04/15/22 04/21/22 Rx release (Protonix) Past Med/Surg History Medical History Allergic rhinitis Alternating exotropia Anemia Aphasia Bipolar disorder Bladder carcinoma s/p TURBT 10/2021 Cataracts, both eyes Cerebral palsy Chronic constipation Chronic periodontitis Dermatitis Epilepsy GERD (gastroesophageal reflux disease) History of prematurity Hyperlipidemia Microcephaly Mood disorder PAD (peripheral artery disease) Paraplegia Paroxysmal atrial tachycardia Ptosis, left eyelid Scoliosis Severe intellectual disabilities Spina bifida Surgical History H/O transurethral destruction of bladder lesion 12/2021 History of removal of neck cyst Family History Other Family history non-contributory Social History Smoking Status: Never smoker Hx Alcohol Use: No Hx Substance Use: No Preferred Language: Faroese Communication Ability: Unable Visual 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 Limited Cream Tester Required: No Beliefs That Will Affect Care: None Current Living Situation: Personal Care Facility Current Living Situation Comment: jail current occupational status: disabled Feels Safe at Home: Yes caffeine: Yes Dental Care, Regularly: Yes Assistive Devices: Wheelchair Review of Systems Unable to obtain Physical Exam Constitutional: comfortable; no acute distress Respiratory: normal respiratory effort, lungs clear to auscultation Cardiovascular: RRR, no murmur, no edema Gastrointestinal (Abdomen): normal bowel sounds, soft, nontender, no hepatosplenomegaly Results & Data ([facility]) Vital Signs (Past 12 Hours) Vital Signs Temp Pulse Pulse Resp BP BP Pulse Ox 04/25/22 23:51 90 20 150/73 H 100 04/25/22 22:00 72 20 148/92 H 99 04/25/22 18:47 36.8 C 116 H 19 150/82 H 96 O2 Del Method 04/25/22 23:51 Room Air 04/25/22 22:00 Room Air 04/25/22 18:47 Room Air Laboratory Results Laboratory Results - last 24 hr 04/25/22 04/25/22 04/25/22 21:51 21:51 21:55 WBC 8.11 RBC 4.33 L Hgb 12.5 L Hct 40.2 MCV 92.8 MCH 28.9 MCHC 31.1 L RDW Std Deviation 50.3 H RDW Coeff of [place] 14.6 H Plt Count 322 MPV 10.6 Immature Gran % (Auto) 0.2 Neut % (Auto) 54.5 Lymph % (Auto) 30.7 [place] % (Auto) 9.1 Eos % (Auto) 4.9 Baso % (Auto) 0.6 Neut # (Auto) 4.41 Lymph # (Auto) 2.49 [place] # (Auto) 0.74 Eos # (Auto) 0.40 Baso # (Auto) 0.05 Immature Gran # (Auto) 0.02 Sodium 144 Potassium 3.6 Chloride 113 H Carbon Dioxide 22 Anion Gap 9 BUN 17 Creatinine 0.71 Est Cr Clr Drug Dosing 92.6 Est GFR ( Amer) 118.2 Est GFR (Non-Af Amer) 102.0 BUN/Creatinine Ratio 23.9 H Glucose 91 Calcium 9.7 Total Bilirubin 0.5 AST 19 ALT 21 Alkaline Phosphatase 119 H Total Protein 8.1 Albumin 4.6 Globulin 3.5 Albumin/Globulin Ratio 1.3 Lipase 28 SARS-CoV-2, RNA, NAAT NEGATIVE
[2022-04-26] MEDS ORDERED: fentaNYL citrate 100 MCG/2 ML VIAL ONE (00:21)
[2022-04-26] MEDS ORDERED: SUGAMMADEX SODIUM 200 MG/2 ML VIAL IV ONE (00:33)
--- NOTE | 2022-04-26 00:40 | Operative Report ---
Post Operative Report Pre & Post Diagnosis Operation Date: 04/25/22 11:10 Pre-Op Diagnosis: Food impaction of esophagus Post-Op Diagnosis: Food impaction of esophagus I identified the patient and participated in the time-out.: Yes Procedure Operation Date: 04/25/22 11:10 Actual Procedures p Esophagogastroduodenoscopy - Carlos Mccracken MD Surgeon Carlos Mccracken MD Tow Feeder None Estimated Blood Loss 0 Findings See Below (Food impaction in the esophagus cleared. ) Specimens None Description of Procedure EGD I attest to the content of the Intraoperative Record and any orders documented therein. Any exceptions are noted below.
[2022-04-26] MEDS ORDERED: ONDANSETRON INJ 2 MG/ML 2 ML VIAL ONE (00:44)
[2022-04-26] MEDS ORDERED: LIDOCAINE 2% MPF LOCAL 5 ML VIAL INFIL ONE (00:44)
[2022-04-26] MEDS ORDERED: ROCURONIUM BROMIDE 10 MG/ML 5 ML VIAL IV ONE (00:44)
[2022-04-26] MEDS ORDERED: PROPOFOL IV EMULSION 10 MG/ML 20 ML VIAL IV ONE (00:44)
--- NOTE | 2022-04-26 00:51 | GI REPORT ---
Patient Name: Donny Wang Procedure Date: 04/25/2022 11:37 PM Date of : 1960 Admit Type: Emergency Department Age: 62 Gender: Male Attending MD: Carlos Mccracken MD Procedure: Upper GI endoscopy Providers: Carlos Mccracken MD Referring MD: Partha Vieira Indications: Foreign body in the esophagus Medicines: General Anesthesia Complications: No immediate complications. Estimated Blood Loss: Estimated blood loss: none. Procedure: Pre-Anesthesia Assessment: - Prior to the procedure, a History and Physical was performed, and patient medications, allergies and sensitivities were reviewed. The patient's tolerance of previous anesthesia was reviewed. - The alternatives, risks and benefits of the procedure were discussed at length with the patient's relative. The patient's proxy verbalized understanding of the risks as well as the alternatives and wished to proceed with the procedure. - Patient identification and proposed procedure were verified prior to the procedure by the physician and the nurse. The procedure was verified in the procedure room. - Pre-procedure physical examination revealed no contraindications to sedation. After obtaining informed consent, the endoscope was passed under direct vision. Throughout the procedure, the patient's blood pressure, pulse, and oxygen saturations were monitored continuously. The Endoscope was introduced through the mouth, and advanced to the second part of duodenum. The upper GI endoscopy was accomplished without difficulty. The patient tolerated the procedure well. Findings: Impacted grape was found in the middle third of the esophagus. Removal was accomplished with a Boyer net. The examined esophagus was mildly tortuous. A small hiatal hernia was present. The entire examined stomach was normal. The duodenal bulb and second portion of the duodenum were normal. Impression: - Impacted grape was found in the esophagus. Removal was successful. - Tortuous esophagus. - Small hiatal hernia. - Normal stomach. - Normal duodenal bulb and second portion of the duodenum. Recommendation: - Admit the patient to [facility] for [facility]. - Diet as tolerated. - Recall GI if needed. Carlos Mccracken MD 04/26/2022 12:51:17 AM This report has been signed electronically. Note Initiated On: 04/25/2022 11:37 PM Number of Addenda: 0 I attest to the content of the Intraoperative Record and orders documented therein, exceptions below {[id number]}
--- NOTE | 2022-04-26 00:59 | Gastroenterology Progress Note ---
Date of Service April 26, 2022 Subjective Food impaction cleared by endoscopy. Spoke to Oncall Hospital[place] [facility] plan to admit the patient for observation post GA in view of his extensive neurological illness. Recall GI if needed. Results & Data ([facility]) Vital Signs (Past 12 Hours) Vital Signs Temp Pulse Pulse Resp BP BP Pulse Ox 04/25/22 23:51 90 20 150/73 H 100 04/25/22 22:00 72 20 148/92 H 99 04/25/22 18:47 36.8 C 116 H 19 150/82 H 96 O2 Del Method 04/25/22 23:51 Room Air 04/25/22 22:00 Room Air 04/25/22 18:47 Room Air
--- NOTE | 2022-04-26 01:02 | History & Physical Report ---
Date of Service April 26, 2022 Assessment & Plan (1) Encounter for postanesthesia care: Plan: 62yo male with a history of cerebral palsy, epilepsy, HLD, anemia, and GERD presents after an esophageal food bolus impaction earlier today. Patient was taken for an EGD by Dr. Mccracken, which found an impacted grape in the middle third of the esophagus, which was then removed. Dr. Mccracken requests patient be admitted for general monitoring given possible interaction between generalized anesthesia and patients neurological state given his history of cerebral palsy. Postanesthetic care s/p EGD for removal of esophageal food bolus See procedure note for details; no immediate post-procedure complications NPO pending speech eval Routine post-procedure care otherwise Cardiac monitoring in the immediate post-procedure period Will add pain control if symptoms arise Cerebral palsy, history of epilepsy NPO pending speech eval Oral keppra converted to IV Will hold off on home depakote / topamax while NPO pending speech eval HLD, GERD, allergies: home regimen held while NPO, restart when appropriate FEN: NPO as noted above Code status: full code DVT ppx: SCDs PT/OT: ordered Dispo: med/telemetry (2) Food impaction of esophagus: (3) Cerebral palsy: (4) Epilepsy: (5) Hyperlipidemia: History of Present Illness Primary Care Provider: Sofia Xie MD 62yo male with a history of cerebral palsy, epilepsy, HLD, anemia, and GERD presents after an esophageal food bolus impaction earlier today. Patient was taken for an EGD by Dr. Mccracken, which found an impacted grape in the middle third of the esophagus, which was then removed. The examined esophagus was mildly torturous but was otherwise unremarkable. Dr. Mccracken requests patient be admitted for general monitoring given possible interaction between generalized anesthesia and patients neurological state given his history of cerebral palsy. There were no immediate post-procedural complications.Patient is unable to provide ROS due to cognitive status. Allergies Allergy/AdvReac Type Severity Reaction Status Date / Time metoclopramide Allergy Intermediate Agitation Verified 04/21/22 05:53 grapefruit Allergy Mild nasal Verified 04/21/22 05:53 congestion chocolate flavor Allergy Unknown Unknown Verified 04/21/22 05:53 Home Medications Medication Instructions Recorded Confirmed Type acetaminophen 325 mg tablet 650 mg PO Q6H PRN Fever Or Pain 10/19/18 04/21/22 History carbamide peroxide 6.5 % ear drops 2 drp OTB 3XWK 10/19/18 04/21/22 History (Debrox) clindamycin phosphate 1 % topical 1 applic topical QAM 10/19/18 04/21/22 History solution (Cleocin T) dextromethorphan-guaifenesin 5 5 ml PO QID PRN Congestion 02/08/19 04/21/22 History mg-100 mg/5 mL oral liquid (Robitussin Cough-Chest Congestion DM) ketoconazole 2 % shampoo (Nizoral) 1 applic topical 2XWK 02/08/19 04/21/22 History sodium chloride 0.65 % nasal spray 1 spray intranasal TID PRN Dry 02/08/19 04/21/22 History aerosol (Saline Nasal) Nasal Passages sodium chloride-aloe vera nasal 1 spray intranasal BID 02/08/19 04/21/22 History spray ([place] Saline Gel nasal spray) docusate sodium 100 mg capsule 100 mg PO QAM 03/12/19 04/21/22 History (Stool Softener) cjktkaisbkatb-BH-pmqomooplcjlm 5 2 tab PO DIRECTED PRN Cold 04/07/19 04/21/22 History mg-10 mg-325 mg tablet (Tylenol Symptoms Cold Max Day) loperamide 2 mg capsule (Imodium 2 mg PO UD PRN Diarrhea 06/03/19 04/21/22 History A-D) Jobst Stockings (misc) #1 ea 09/18/19 04/05/22 Rx Wheelchair (Manual) (Manual #1 ea 11/07/19 04/05/22 Rx Wheelchair) diaper,brief,adult,disposable #100 ea 03/19/20 04/05/22 Rx (Briefs Medium) aluminum-mag hydroxide-simethicone 30 ml PO Q4H PRN UPSET 03/25/20 04/21/22 H istory 400 mg-400 mg-40 mg/5 mL oral susp STOMACH/VOMITING (Antacid-Simethicone) polyethylene glycol 3350 17 17 g PO .COMPLEX #765 grams 09/03/21 04/21/22 Rx gram/dose oral powder calcium carbonate 500 mg-vitamin 1 tab PO QAM 10/01/21 04/21/22 History D3 10 mcg (400 unit) tablet cyanocobalamin (vitamin B-12) 1,000 mcg PO QAM 10/01/21 04/21/22 History 1,000 mcg capsule diazepam 5 mg-7.5 mg-10 mg rectal 7.5 mg MD UD PRN seizure activity 10/05/21 04/21/22 Rx kit (Diastat AcuDial) #1 ea aspirin 81 mg tablet,delayed 81 mg PO QAM 11/03/21 04/21/22 History release lorazepam 0.5 mg tablet 0.5 mg PO BID #60 tabs 11/03/21 04/21/22 Rx triamcinolone acetonide 0.1 % 1 applic topical BID PRN rash #30 11/03/21 04/21/22 Rx topical cream grams levetiracetam 750 mg tablet 1,500 mg PO BID 90 days #360 tabs 11/17/21 04/21/22 Rx (Keppra) topiramate 100 mg tablet 100 mg PO BID 90 days #180 tabs 11/17/21 04/21/22 Rx miscellaneous medical supply 1 ea miscellaneous ONCE #1 ea 11/27/21 04/21/22 Rx potassium chloride 20 mEq See Rx Instructions .Route 12/01/21 04/21/22 Rx tablet,extended release(part/cryst) .COMPLEX #28 tabs propranolol 10 mg tablet See Rx Instructions .Route 12/01/21 04/21/22 Rx .COMPLEX #56 tabs emollient combination no.92 1 applic topical BID Dry skin #710 12/15/21 04/21/22 Rx (Lubriderm Daily Moisture lotion) mL divalproex 250 mg tablet,extended 250 mg PO QAM 04/12/22 04/21/22 History release 24 hr (Depakote ER) divalproex 500 mg tablet,extended 500 mg PO QAM 04/12/22 04/21/22 History release 24 hr (Depakote ER) loratadine 10 mg tablet (Claritin) 10 mg PO QAM allergies 04/12/22 04/21/22 History neomycin-bacitracn Zn-polymyx 3.5 1 applic topical BID 04/12/22 04/21/22 History mg-400 unit-5,000 unit/gram top oint (Triple Antibiotic) sertraline 50 mg tablet 50 mg PO QAM 04/12/22 04/21/22 History white petrolatum 41 % topical 1 applic topical HS 04/12/22 04/21/22 History ointment (Aquaphor Healing) pantoprazole 40 mg tablet,delayed 40 mg PO DAILYBB #90 tabs 04/15/22 04/21/22 Rx release (Protonix) Past Med/Surg History Medical History Allergic rhinitis Alternating exotropia Anemia Aphasia Bipolar disorder Bladder carcinoma s/p TURBT 10/2021 Cataracts, both eyes Cerebral palsy Chronic constipation Chronic periodontitis Dermatitis Epilepsy GERD (gastroesophageal reflux disease) History of prematurity Hyperlipidemia Microcephaly Mood disorder PAD (peripheral artery disease) Paraplegia Paroxysmal atrial tachycardia Ptosis, left eyelid Scoliosis Severe intellectual disabilities Spina bifida Surgical History H/O transurethral destruction of bladder lesion 12/2021 History of removal of neck cyst Family History Other Family history non-contributory Social History Smoking Status: Never smoker Hx Alcohol Use: No Hx Substance Use: No Preferred Language: Congolese Communication Ability: Impaired Visual 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 Limited Occupational Hygienist Required: No Beliefs That Will Affect Care: None Current Living Situation: Intermediate Current Living Situation Comment: Lives at [facility] current occupational status: disabled Feels Safe at Home: Yes Safety Concerns: Feels Safe At This Time caffeine: Yes Dental Care, Regularly: Yes Assistive Devices: Wheelchair Physical Exam Physical Exam: Constitutional: tired-appearing, no acute distress HEENT: NCAT CV: regular rhythm, no murmur appreciated, extremities well-perfused, no LE edema Resp: CTABL, faint bibasilar rhonchi appreciated, no increased work of breathing GI: soft, nondistended, nontender, BS normoactive MSK: flexion contractures noted Skin: warm, dry, no rash appreciated Neuro: alert, nonverbal, left-beating nystagmus noted, flexion contractures noted, strength unable to be tested due to cognitive status, no additional neurologic deficits appreciated Results & Data Results & Data ([facility]) Vital Signs (Past 12 Hours) Vital Signs Temp Pulse Pulse Resp BP BP Pulse Ox 04/25/22 23:51 90 20 150/73 H 100 04/25/22 22:00 72 20 148/92 H 99 04/25/22 18:47 36.8 C 116 H 19 150/82 H 96 O2 Del Method 04/25/22 23:51 Room Air 04/25/22 22:00 Room Air 04/25/22 18:47 Room Air Supervising Physician Co-Signing Physician Notes Attending addendum: I have physically seen this patient, have supervised the medical residents activities, and agree with the H&P unless as otherwise noted. Assessment and Plan: Status post EGD for removal of esophageal food bolus- The patient will be admitted to telemetry for serial cardiac enzymes, serial EKG's, cardiac rhythm monitoring Aspiration precautions Consult speech therapy N.p.o. until cleared by speech Famotidine 20 mg IV every 12 hours No signs of hypoxia, hold off antibiotics at this time Cerebral palsy/epilepsy history- Change Keppra to IV Medications otherwise on hold Remaining orders and notations as noted Resident Activity Tracking Resident Involvement: Resident Care Provided and Audio Visual Facilities Engineer Coverage Note Care Provided: Adult Hospital Medicine
--- NOTE | 2022-04-26 01:18 | Anesthesiology Progress Note ---
Date of Service April 26, 2022 Anesthesia Post Procedure Vital Signs Vital Signs: Temp Pulse Pulse Resp BP BP Pulse Ox 04/25/22 23:51 90 20 150/73 H 100 04/25/22 22:00 72 20 148/92 H 99 04/25/22 18:47 36.8 C 116 H 19 150/82 H 96 O2 Del Method 04/25/22 23:51 Room Air 04/25/22 22:00 Room Air 04/25/22 18:47 Room Air Transfer of Care Handoff Completed per policy Notes Mental Status: alert / awake / arousable Patient Amnestic to Procedure: Yes Nausea / Vomiting: adequately controlled Pain: adequately controlled Airway Patency, RR, SpO2: stable & adequate BP & HR: stable & adequate Hydration State: stable & adequate Anesthetic Complications: no major complications apparent Notes: patient is at baseline mental status
--- NOTE | 2022-04-26 06:17 | Billing Data ---
Date of Service April 26, 2022 Coding Level of Care Code INT OBSERVATION CARE 70M LVL 3
--- NOTE | 2022-04-26 08:34 | XRay Report ---
SINGLE VIEW CHEST CLINICAL HISTORY: Vomiting. Nausea. FINDINGS: 2 AP, portable, upright chest radiographs are compared to study dated 04/19/2022. The examin ation is degraded by portable technique and patient rotation. The cardiomediastinal silhouette is un remarkable. Chronic interstitial thickening is similar to previous. There is bibasilar scarring/atele ctasis. No airspace consolidation or large pleural effusion is identified. No pneumothorax is seen. T he skeletal structures are osteopenic. There are numerous healed left-sided rib fractures. Degenerati ve change and moderate scoliosis is noted in the spine. IMPRESSION: No active disease in the chest. ACT 112: Negative or not required by law. Electronically signed by: Vaughn Santana M.D. 04/26/2022 8:32 AM
--- NOTE | 2022-04-26 08:47 | XRay Report ---
PA CHEST WITH ABDOMINAL SERIES CLINICAL HISTORY: Vomiting. FINDINGS: An AP upright chest radiograph is compared to study dated 04/25/2022. The cardiomediastinal silhouette is unremarkable. There is bibasilar scarring/atelectasis. No airspace consolidation or pleural effus ion is identified. A hiatal hernia is noted. No pneumothorax is seen. The skeletal structures are ost eopenic. Degenerative change and scoliosis is noted in the spine. Supine and erect abdominal radiographs are correlated with abdominal CT dated 09/01/2021. There is a nonobstructed abdominal bowel gas pattern. Moderate fecal retention is noted in the colon. No evidenc e of intraperitoneal free air is seen. There are no abnormal abdominal calcifications. The skeletal s tructures are osteopenic. There is thoracolumbar scoliosis. The bony pelvis appears intact. Chronic d eformity is seen in the hips. IMPRESSION: 1. No active disease in the chest. 2. Nonobstructed abdominal bowel gas pattern noting moderate constipation. ACT 112: Negative or not required by law. Electronically signed by: Vaughn Santana M.D. 04/26/2022 8:46 AM
[2022-04-26] MEDS ORDERED: levETIRAcetam 1,500 MG in 0.9 % SODIUM CHLORIDE 100 ML IV SCH (09:00)
--- NOTE | 2022-04-26 15:09 | Discharge Summary ---
Date of Service April 26, 2022 Admission HPI Per Admitting Provider 62yo male with a history of cerebral palsy, epilepsy, HLD, anemia, and GERD presents after an esophageal food bolus impaction earlier today. Patient was taken for an EGD by Dr. Mccracken, which found an impacted grape in the middle third of the esophagus, which was then removed. The examined esophagus was mildly torturous but was otherwise unremarkable. Dr. Mccracken requests patient be admitted for general monitoring given possible interaction between generalized anesthesia and patients neurological state given his history of cerebral palsy. There were no immediate post-procedural complications.Patient is unable to provide ROS due to cognitive status. Principal Diagnosis Food impaction Discharge Exam Resting comfortably. Not verbal. Does not follow commands. RRR, CTA b/l Discharge Data Allergies Allergy/AdvReac Type Severity Reaction Status Date / Time metoclopramide Allergy Intermediate Agitation Verified 04/21/22 05:53 grapefruit Allergy Mild nasal Verified 04/21/22 05:53 congestion chocolate flavor Allergy Unknown Unknown Verified 04/21/22 05:53 Consultations 04/26/22 00:58 ED Decision to Admit Stat Procedures Performed Operation Date: 04/25/22 11:10 Actual Procedures p Esophagogastroduodenoscopy - Carlos Mccracken MD Hospital Course (1) Encounter for postanesthesia care: 62yo male with a history of cerebral palsy, epilepsy, HLD, anemia, and GERD presents after an esophageal food bolus impaction earlier today. Patient was taken for an EGD by Dr. Mccracken, which found an impacted grape in the middle third of the esophagus, which was then removed. Dr. Mccracken requests patient be admitted for general monitoring given possible interaction between generalized anesthesia and patients neurological state given his history of cerebral palsy. Postanesthetic care s/p EGD for removal of esophageal food bolus See procedure note for details; no immediate post-procedure complications Routine post-procedure care otherwise Cardiac monitoring in the immediate post-procedure period Will add pain control if symptoms arise -> Seen by SENIOR CREDIT ANALYST in hospital. No overt aspiration. No video swallow study presently indicated, but can follow-up outpatient if caretakers feel it is warranted. Cerebral palsy, history of epilepsy Oral keppra converted to IV while inpatient. Return to oral meds on discharge. HLD, GERD, allergies: home regimen Code status: full code DVT ppx: SCDs PT/OT: ordered Dispo: med/telemetry (2) Food impaction of esophagus: (3) Cerebral palsy: (4) Epilepsy: (5) Hyperlipidemia: Total Time Total Time Spent Total Time Spent (In Minutes): 35 Discharge Plan Discharge Items Patient Disposition: Transfer Intermediate Fac Reason For Visit: POST-PROCEDURE CARE Discharge Diagnosis: Food impaction; now removed Activity: Resume your previous activity Non-emergency contact: Primary Care Provider and Animal Care Attendant Call non-emergency contact if: your symptoms worsen Follow-up/Referrals: Sofia Xie MD [Primary Care Provider] - Carlos Mccracken MD [Physician] - Diet: Regular Diet Texture: Mechanical soft (ground) Susanatl Attending Provider Instructions: Mr. Wang was admitted after a food impaction at his long-term care facility. He underwent urgent EGD which removed the impacted grape. He was seen by Speech with no overt concerns, but Speech did say that he could follow up if there are ongoing swallow concerns on his minced and moist diet. Addtl Deep Well Contractor Provider Instructions: Activity as tolerated. Eat and drink as typical. Avoid grapes and similar items in the future. Make sure all food items are cut up very small. Follow-up with GI specialist for recheck. Dr. Mccracken is listed below. Pending Studies at Discharge: No Stand-Alone Forms: [facility]INCON Skilled Items Patient informed of condition?: No DNR: No Discharge Level of Care: Skilled Communicable Disease: No Discharge Prognosis: Stable Lines: None Urinary Catheter: No Medications and DC Order Prescriptions: Continued (DME) misc Misc See Rx Instructions .ROUTE .MEDSUPPLY Qty: 1 0RF Rx Instructions: As directed- May cut Keppra tabs and Potassium tabs in HALF for easier admin. (DME) Briefs Medium Misc See Rx Instructions .ROUTE .MEDSUPPLY Qty: 100 5RF Rx Instructions: Medium Briefs polyethylene glycol 3350 17 gram/dose powder 17 g PO .COMPLEX Qty: 765 5RF Rx Instructions: 17 grams PO Every 3 days and as needed daily; if not bowel movement in 3 days diazepam [Diastat AcuDial] 5-7.5-10 mg kit 7.5 mg MS UD PRN (Reason: seizure activity) Qty: 1 0RF Rx Instructions: Give 1 dose rectally if seizure lasts longer than 5 minutes and call 911 topiramate 100 mg tablet 100 mg PO BID 90 Days Qty: 180 1RF levetiracetam [Keppra] 750 mg tablet 1,500 mg PO BID 90 Days Qty: 360 1RF miscellaneous medical supply Misc 1 ea miscellaneous ONCE Qty: 1 0RF Rx Instructions: REPLACEMENT ARM PAD FOR A WHEELCHAIR propranolol 10 mg tablet See Rx Instructions .ROUTE .COMPLEX Qty: 56 5RF Dose Instruction: TAKE ONE TABLET BY MOUTH TWICE DAILY. *RAPID HEART* Rx Instructions: TAKE ONE TABLET BY MOUTH TWICE DAILY. *RAPID HEART* potassium chloride 20 mEq tablet,ER particles/crystals See Rx Instructions .ROUTE .COMPLEX Qty: 28 5RF Dose Instruction: TAKE ONE TAB BY MOUTH DAILY *POTASSIUM SUPP* Rx Instructions: TAKE ONE TAB BY MOUTH DAILY *POTASSIUM SUPP* Lubriderm Daily Moisture Lotion 1 applic topical BID Qty: 710 5RF pantoprazole [Protonix] 40 mg tablet,delayed release (DR/EC) 40 mg PO DAILYBB Qty: 90 3RF Rx Instructions: Take 1 tablet by mouth daily, one hour prior to the first meal of the day. (DME) Manual Wheelchair Device See Rx Instructions .ROUTE .MEDSUPPLY Qty: 1 0RF Rx Instructions: As directed aspirin 81 mg tablet,delayed release (DR/EC) 81 mg PO QAM lorazepam 0.5 mg tablet 0.5 mg PO BID Qty: 60 5RF triamcinolone acetonide 0.1 % cream 1 applic TOPICAL BID PRN (Reason: rash) Qty: 30 1RF Rx Instructions: Do not apply in same spot for longer than two weeks. acetaminophen 325 mg Tablet 650 mg PO Q6H MDD 3 GRAMS/24 HOURS PRN (Reason: Fever Or Pain) Rx Instructions: NEEDED FOR HEADACHE/MINOR ACHES AND PAIN OR TEMPERATURE GREATER THAN 100 F Debrox 6.5 % Drops 2 drp OTB 3XWK clindamycin phosphate [Cleocin T] 1 % solution 1 applic topical QAM Rx Instructions: APPLY DIRECTED TO SCALP ketoconazole [Nizoral] 2 % Shampoo 1 applic TOPICAL 2XWK Rx Instructions: USE SHAMPOO TO SCALP EVERY TUESDAY AND TUESDAY Robitussin Cough-Chest Francisco Javier DM 5-100 mg/5 mL Liquid 5 ml PO QID PRN (Reason: Congestion) Saline Nasal 0.65 % Aerosol,[place] 1 spray INTRANASAL TID PRN (Reason: Dry Nasal Passages) [place] Saline Gel [place],Non-Aerosol 1 spray INTRANASAL BID docusate sodium [Stool Softener] 100 mg capsule 100 mg PO QAM loperamide [Imodium A-D] 2 mg capsule 2 mg PO UD PRN (Reason: Diarrhea) Label Comments: TAKE 2 TABLETS AT ONSET OF LOOSE STOOL THEN TAKE 1 TABLET AFTER EACH LOOSE BOWEL MOVEMENT. TAKE NO MORE THAN 4 DOSES IN 2 DAYS. Tylenol Cold Max Day 5-10-325 mg Tablet 2 tab PO DIRECTED PRN (Reason: Cold Symptoms) alum-mag hydroxide-simeth [Antacid-Simethicone] 400-400-40 mg/5 mL Suspension 30 ml PO Q4H PRN (Reason: UPSET STOMACH/VOMITING) divalproex [Depakote ER] 500 mg tablet extended release 24 hr 500 mg PO QAM Rx Instructions: TOTAL DOSE 750 MG--TAKES WITH 250 MG TAB. sertraline 50 mg tablet 50 mg PO QAM loratadine [Claritin] 10 mg tablet 10 mg PO QAM divalproex [Depakote ER] 250 mg tablet extended release 24 hr 250 mg PO QAM Rx Instructions: TOTAL DOSE 750 MG--TAKES WITH 500 MG TAB. Aquaphor Healing 41 % ointment 1 applic TOPICAL HS Triple Antibiotic 3.5mg-400 unit- 5,000 unit/gram Ointment 1 applic TOPICAL BID calcium carbonate-vitamin D3 500 mg(1,250mg) -400 unit tablet 1 tab PO QAM cyanocobalamin (vitamin B-12) 1,000 mcg capsule 1,000 mcg PO QAM Discharge Orders: Discharge Order (Routine); Ordered 04/26/22 Ordered By: Dany Saenz Admission Data Admit Date/Time: 04/26/22 01:21 Attending Provider: Dany Saenz Admit Provider: Mamadou Garza Primary Care Provider: Sofia Xie Other Providers: Carlos Carrizales Other Interventions: Discharge Summary Assessment (RN) Last Done: 04/26/22 14:46 Coding Level of Care Code D/C DAY MANAGEMENT >30 MINS Diagnoses Encounter for postanesthesia care Z51.89 Food impaction of esophagus T18.128A Cerebral palsy G80.9 Epilepsy G40.909 Hyperlipidemia E78.5
== END 2022-04-26 15:00 | disposition home or self-care (01) | DRG 394 ==
LOC: ED 18:45 → OR 04-26 00:01 → SUATTDRO 04-26 01:21 → 1E 04-26 01:21 → INTOOBSV 04-26 01:21

== ENCOUNTER 2022-05-02 08:40 | Inpatient (IN) ==
[2022-05-02] MEDS ORDERED: SODIUM CHLORIDE 0.9% 1000ML 1,000 ML IV STA (08:45)
--- NOTE | 2022-05-02 08:48 | Emergency Department Note ---
Impression & Plan Aspiration pneumonia ADMIT ED Provider Note HPI: The patient is a 62-year-old gentleman with history of cerebral palsy, severe intellectual disability, presents to the emergency department with reported coffee-ground emesis. Patient presents from his nursing facility after episode of dark-colored emesis. On arrival to the ED the patient has borderline blood pressure 101 systolic, he is tachycardic at 130, he is mildly agitated. He is otherwise saturating well on room air and afebrile on presentation. ROS: -GI: Dark-colored emesis *10 point review systems was conducted and is otherwise negative unless stated above *Outpatient medications and allergy history reviewed PE: General: Alert HEENT: Normocephalic, atraumatic Eyes: Extraocular eye movement is intact, no scleral erythema Pulmonary: Clear to auscultation bilaterally, no wheezing Cardio: Tachycardic rate and regular rhythm GI: Abdomen is soft, nontender, no distention : No suprapubic tenderness MSK: Contracted extremities Skin: No evidence of rash Neuro: Alert, nonverbal, contracted extremities at baseline with cerebral palsy Psychiatric: Not 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 On arrival to the ED the patient is hypotensive, tachycardic, per EMS report patient is full code. IV was established, IV fluids administered, lab work was sent. Patient's lab work shows a stable hemoglobin, no leukocytosis, blood cultures were sent, lactic acid was sent and is within normal limits. CT imaging of the chest as well as CT imaging of the abdomen pelvis with IV contrast was obtained, no evidence of food bolus, there is evidence of aspiration pneumonitis, no evidence of small bowel obstruction. Patient was started on IV Unasyn as well as IV azithromycin for concern for pneumonia/aspiration pneumonia as the source of his symptoms. There was a slight delay in administration of antibiotics over concern for potential anemia/upper GI bleed as a source of the patient's hypotension as this was repor danielle to EMS. Hemoglobin is stable and I have lower concern for this at this point. He has not had any dark-colored emesis while here in the ED his blood pressure did respond to IV fluid bolus of greater than 30 cc/kg on my repeat assessment his systolic blood pressure is 109. Patient otherwise appears well he is on 2 L nasal cannula oxygen and sleeping comfortably. Case was discussed with the on-call hospitalist service, patient was admitted following my discussion with Dr. Saenz for further management of aspiration pneumonia. -Following discussion/admission, it was brought to the attention of staff that the facility did bring in a POLST form stating that the patient is comfort measures only CODE STATUS, I did contact the hospitalist service and they are updated and already aware. * CRITICAL CARE TIME: 40 min -Stabilization of patient with septic vital signs tension tachycardia requiring IV fluid resuscitation for stabilization, antibiotic administration, interpretation of diagnostic studies and arrangement of admission Diagnosis: 1. Aspiration pneumonia 2. Sepsis secondary to aspiration pneumonia 3. Tachycardia 4. Hypotension 5. Anemia Disposition: Admission Skinny Wei, DO Emergency Medicine Past Med/Surg History Medical History Allergic rhinitis Alternating exotropia Anemia Aphasia Bipolar disorder Bladder carcinoma s/p TURBT 10/2021 Cataracts, both eyes Cerebral palsy Chronic constipation Chronic periodontitis Dermatitis Epilepsy GERD (gastroesophageal reflux disease) History of prematurity Hyperlipidemia Microcephaly Mood disorder PAD (peripheral artery disease) Paraplegia Paroxysmal atrial tachycardia Ptosis, left eyelid Scoliosis Severe intellectual disabilities Spina bifida Surgical History H/O transurethral destruction of bladder lesion 12/2021 History of removal of neck cyst Family History Other Family history non-contributory Social History Smoking Status: Never smoker Hx Alcohol Use: No Hx Substance Use: No Preferred Language: Irish Communication Ability: non verbal Visual 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 Limited Courtroom Clerk Required: No Beliefs That Will Affect Care: None marital status: Single Current Living Situation: Custodial Current Living Situation Comment: Lives at [facility] current occupational status: disabled Feels Safe at Home: Yes caffeine: Yes Dental Care, Regularly: Yes Assistive Devices: Wheelchair Allergies Allergies Allergy/AdvReac Type Severity Reaction Status Date / Time metoclopramide Allergy Intermediate Agitation Verified 04/29/22 14:19 grapefruit Allergy Mild nasal Verified 04/29/22 14:19 congestion chocolate flavor Allergy Unknown Unknown Verified 04/29/22 14:19 Home Meds Home Medications Medication Instructions Recorded Confirmed acetaminophen 325 mg tablet 650 mg PO Q6H PRN Fever Or Pain 10/19/18 04/29/22 carbamide peroxide 6.5 % ear drops 2 drp OTB 3XWK 10/19/18 04/29/22 (Debrox) clindamycin phosphate 1 % topical 1 applic topical QAM 10/19/18 04/29/22 solution (Cleocin T) dextromethorphan-guaifenesin 5 5 ml PO QID PRN Congestion 02/08/19 04/29/22 mg-100 mg/5 mL oral liquid (Robitussin Cough-Chest Congestion DM) ketoconazole 2 % shampoo (Nizoral) 1 applic topical 2XWK 02/08/19 04/29/22 sodium chloride 0.65 % nasal spray 1 spray intranasal TID PRN Dry 02/08/19 04/29/22 aerosol (Saline Nasal) Nasal Passages sodium chloride-aloe vera nasal 1 spray intranasal BID 02/08/19 04/29/22 spray ([place] Saline Gel nasal spray) docusate sodium 100 mg capsule 100 mg PO QAM 03/12/19 04/29/22 (Stool Softener) qmteoglzqpsat-GB-amvprzoihlrca 5 2 tab PO DIRECTED PRN Cold 04/07/19 04/29/22 mg-10 mg-325 mg tablet (Tylenol Symptoms Cold Max Day) loperamide 2 mg capsule (Imodium 2 mg PO UD PRN Diarrhea 06/03/19 04/29/22 A-D) aluminum-mag hydroxide-simethicone 30 ml PO Q4H PRN UPSET 03/25/20 04/29/22 400 mg-400 mg-40 mg/5 mL oral susp STOMACH/VOMITING (Antacid-Simethicone) calcium carbonate 500 mg-vitamin 1 tab PO QAM 10/01/21 04/29/22 D3 10 mcg (400 unit) tablet cyanocobalamin (vitamin B-12) 1,000 mcg PO QAM 10/01/21 04/29/22 1,000 mcg capsule aspirin 81 mg tablet,delayed 81 mg PO QAM 11/03/21 04/29/22 release divalproex 250 mg tablet,extended 250 mg PO QAM 04/12/22 04/29/22 release 24 hr (Depakote ER) divalproex 500 mg tablet,extended 500 mg PO QAM 04/12/22 04/29/22 release 24 hr (Depakote ER) loratadine 10 mg tablet (Claritin) 10 mg PO QAM allergies 04/12/22 04/29/22 neomycin-bacitracn Zn-polymyx 3.5 1 applic topical BID 04/12/22 04/29/22 mg-400 unit-5,000 unit/gram top oint (Triple Antibiotic) sertraline 50 mg tablet 50 mg PO QAM 04/12/22 04/29/22 white petrolatum 41 % topical 1 applic topical HS 04/12/22 04/29/22 ointment (Aquaphor Healing) Previous Rx's Medication Instructions Recorded Jobst Stockings (misc) #1 ea 09/18/19 Wheelchair (Manual) (Manual #1 ea 11/07/19 Wheelchair) diaper,brief,adult,disposable #100 ea 03/19/20 (Briefs Medium) polyethylene glycol 3350 17 17 g PO .COMPLEX #765 grams 09/03/21 gram/dose oral powder diazepam 5 mg-7.5 mg-10 mg rectal 7.5 mg [place] UD PRN seizure activity 10/05/21 kit (Diastat AcuDial) #1 ea triamcinolone acetonide 0.1 % 1 applic topical BID PRN rash #30 11/03/21 topical cream grams miscellaneous medical supply 1 ea miscellaneous ONCE #1 ea 11/27/21 potassium chloride 20 mEq See Rx Instructions .Route 12/01/21 tablet,extended release(part/cryst) .COMPLEX #28 tabs propranolol 10 mg tablet See Rx Instructions .Route 12/01/21 .COMPLEX #56 tabs emollient combination no.92 1 applic topical BID Dry skin #710 12/15/21 (Lubriderm Daily Moisture lotion) mL pantoprazole 40 mg tablet,delayed 40 mg PO DAILYBB #90 tabs 04/15/22 release (Protonix) levetiracetam 750 mg tablet 1,500 mg PO BID 90 days #360 tabs 04/27/22 (Keppra) topiramate 100 mg tablet 100 mg PO BID 90 days #180 tabs 04/27/22 lorazepam 0.5 mg tablet 0.5 mg PO BID #60 tabs 04/29/22 Results & Data (ED) Vital Signs Vital Signs - 24 hr 05/02/22 09:04 05/02/22 09:04 05/02/22 10:18 Temperature 37.6 C H Temperature Source Oral Pulse Rate 131 H Pulse Rate [Finger] 127 H Pulse Rhythm [Finger] Pulse Strength [Finger] Respiratory Rate 18 24 Respiratory Effort / Characteristics Respiratory Depth Respiratory Pattern Blood Pressure 79/60 L Blood Pressure [Left Arm] 117/65 Blood Pressure Mean 66 Blood Pressure Mean [Left Arm] 82 Pulse Oximetry 91 92 93 Oxygen Delivery Method Room Air Nasal Cannula Nasal Cannula Oxygen Flow Rate 2 2 05/02/22 11:24 05/02/22 13:00 Temperature Temperature Source Pulse Rate Pulse Rate [Finger] 125 H 116 H Pulse Rhythm [Finger] Regular Pulse Strength [Finger] Normal Respiratory Rate 18 18 Respiratory Effort / Characteristics Non-Labored Respiratory Depth Normal Respiratory Pattern Regular Blood Pressure Blood Pressure [Left Arm] 109/65 85/51 L Blood Pressure Mean Blood Pressure Mean [Left Arm] 79 62 Pulse Oximetry 94 92 Oxygen Delivery Method Nasal Cannula Room Air Oxygen Flow Rate 2 Laboratory Data Result diagrams: 05/02/22 08:55 05/02/22 08:55 Lab Results 05/02/22 05/02/22 05/02/22 Range/Units 08:55 08:55 08:55 WBC 6.89 (4.8-10.8) K/ul RBC 4.46 L (4.63-6.08) M/uL Hgb 12.8 L (14.0-18.0) g/dl Hct 40.3 (40.1-51.0) % MCV 90.4 (80.0-100.0) fL MCH 28.7 (25.0-34.0) pg MCHC 31.8 L (32.0-36.0) g/dL RDW Std Deviation 49.3 H (36.4-46.3) fL RDW Coeff of [place] 15.3 H (11.5-14.5) % Plt Count 229 (130-400) K/uL MPV 11.1 (9.4-12.4) fL Immature Gran % (Auto) 0.3 % Neut % (Auto) 82.7 % Lymph % (Auto) 10.7 % [place] % (Auto) 6.0 % Eos % (Auto) 0.0 % Baso % (Auto) 0.3 % Neut # (Auto) 5.70 (1.4-6.5) K/uL Lymph # (Auto) 0.74 L (1.2-3.4) K/uL [place] # (Auto) 0.41 (0.24-0.82) K/uL Eos # (Auto) 0.00 (0-0.50) K/uL Baso # (Auto) 0.02 (0-0.2) K/uL Immature Gran # (Auto) 0.02 (0.00-0.02) K/uL PT 13.1 H (9.0-12.0) Seconds INR 1.2 H (0.9-1.1) Sodium 144 (136-145) mmol/L Potassium 4.6 (3.5-5.1) mmol/L Chloride 113 H (98-107) mmol/L Carbon Dioxide 21 (21-32) mmol/L Anion Gap 10 (3-11) BUN 21 (6-23) mg/dl Creatinine 0.99 (0.6-1.4) mg/dl Est Cr Clr Drug Dosing 65.0 ml/min Est GFR ( Amer) 95.5 ml/min Est GFR (Non-Af Amer) 82.4 ml/min BUN/Creatinine Ratio 21.2 H (10-20) Glucose 142 H (70-99(Fasting)) mg/dl Lactate (0.4-2.0) mmol/L Calcium 9.3 (8.5-10.1) mg/dl Total Bilirubin 0.6 (0.2-1.0) mg/dl AST 14 (13-39) U/L ALT 15 (7-52) U/L Alkaline Phosphatase 83 (34-104) U/L Total Protein 6.9 (6.0-8.3) gm/dl Albumin 3.8 (3.4-5.0) gm/dl Globulin 3.1 (2.5-4.0) gm/dl Albumin/Globulin Ratio 1.2 (0.9-2) Lipase 12 (11-82) U/L SARS-CoV-2, RNA, NAAT (NEGATIVE) 05/02/22 05/02/22 Range/Units 08:55 09:41 WBC (4.8-10.8) K/ul RBC (4.63-6.08) M/uL Hgb (14.0-18.0) g/dl Hct (40.1-51.0) % MCV (80.0-100.0) fL MCH (25.0-34.0) pg MCHC (32.0-36.0) g/dL RDW Std Deviation (36.4-46.3) fL RDW Coeff of [place] (11.5-14.5) % Plt Count (130-400) K/uL MPV (9.4-12.4) fL Immature Gran % (Auto) % Neut % (Auto) % Lymph % (Auto) % [place] % (Auto) % Eos % (Auto) % Baso % (Auto) % Neut # (Auto) (1.4-6.5) K/uL Lymph # (Auto) (1.2-3.4) K/uL [place] # (Auto) (0.24-0.82) K/uL Eos # (Auto) (0-0.50) K/uL Baso # (Auto) (0-0.2) K/uL Immature Gran # (Auto) (0.00-0.02) K/uL PT (9.0-12.0) Seconds INR (0.9-1.1) Sodium (136-145) mmol/L Potassium (3.5-5.1) mmol/L Chloride (98-107) mmol/L Carbon Dioxide (21-32) mmol/L Anion Gap (3-11) BUN (6-23) mg/dl Creatinine (0.6-1.4) mg/dl Est Cr Clr Drug Dosing ml/min Est GFR ( Amer) ml/min Est GFR (Non-Af Amer) ml/min BUN/Creatinine Ratio (10-20) Glucose (70-99(Fasting)) mg/dl Lactate 1.7 (0.4-2.0) mmol/L Calcium (8.5-10.1) mg/dl Total Bilirubin (0.2-1.0) mg/dl AST (13-39) U/L ALT (7-52) U/L Alkaline Phosphatase (34-104) U/L Total Protein (6.0-8.3) gm/dl Albumin (3.4-5.0) gm/dl Globulin (2.5-4.0) gm/dl Albumin/Globulin Ratio (0.9-2) Lipase (11-82) U/L SARS-CoV-2, RNA, NAAT NEGATIVE (NEGATIVE) Administered Medications Discontinued Medications Sodium Chloride (Nss 1000ml) 1,000 mls @ 999 mls/hr IV .Q1H1M STA Stop: 05/02/22 09:45 Last Infusion: 05/02/22 11:26 Dose: 0 mls/hr Documented By: Admin: 05/02/22 09:14 Dose: 999 mls/hr Documented By: DAYANA Sodium Chloride (Nss 1000ml) 500 mls @ 999 mls/hr IV .Q31M ONE Stop: 05/02/22 09:53 Last Infusion: 05/02/22 13:25 Dose: 0 mls/hr Documented By: Admin: 05/02/22 11:20 Dose: 999 mls/hr Documented By: DAYANA Ampicillin Sodium/Sulbactam Sodium 3,000 mg/ Sodium Chloride 108 mls @ 200 mls/hr IV NOW STA; Protocol Stop: 05/02/22 11:34 Last Infusion: 05/02/22 12:05 Dose: 0 mls/hr Documented By: Admin: 05/02/22 11:20 Dose: 200 mls/hr Documented By: DAYANA Azithromycin 500 mg/ Dextrose 255 mls @ 125 mls/hr IV ONE ONE Stop: 05/02/22 13:04 Last Infusion: 05/02/22 13:25 Dose: 0 mls/hr Documented By: Admin: 05/02/22 11:20 Dose: 125 mls/hr Documented By: DAYANA Ioversol (Optiray 300 500ml) 95 ml IV ONCE ONE Stop: 05/02/22 10:16 Last Admin: 05/02/22 10:16 Dose: 95 ml Documented By: ELIOT Imaging Data Radiologist's Impression: Abdomen/Pelvis CT 05/02/22 08:48 CT OF THE ABDOMEN AND PELVIS WITH CONTRAST CLINICAL HISTORY: emesis COMPARISON STUDY: CT of the abdomen and pelvis August 30, 2021. TECHNIQUE: Following IV administration of 95 mL of Optiray, axial images of the abdomen and pelvis were obtained from the lung bases to the proximal femurs. Images were reviewed in the axial, sagittal, and coronal planes. IV contrast was administered without complication. Automated exposure control was utilized for the study. A dose lowering technique was utilized adhering to the principles of ALARA. FINDINGS: Please note that the chest CT will be reported separately. Thoracolumbar spine scoliosis is noted. Chronic deformity of the hips. Moderate sized hiatal hernia is noted. The stomach is mildly fluid-filled. Airspace opacities within the lungs are better depicted on chest CT. Pyloric wall thickening is probably due to underdistention. No pneumatosis, free air or portal venous gas is present. Liver, spleen, adrenal glands, kidneys and pancreas are normal. No biliary or pancreatic ductal dilatation. There is no evidence for a bowel obstruction. No lymphadenopathy is present. A 3 cm density along the inferior aspect of the cecum was shown on CT of October 19, 2018. This likely reflects an undescended testis. The left lateral bladder wall lesion shown on prior CT is visualized on this study although suboptimally assessed by CT. There is a small left lateral bladder wall diverticulum. No acute fracture or suspicious lesion within the visualized skeletal structures are present. There is a moderate amount stool within the colon and rectum. Major vasculature is patent. This study is mildly compromised by motion artifact. IMPRESSION: 1. Moderate sized hiatal hernia with mildly dilated fluid-filled stomach. 2. No evidence for a bowel obstruction. Moderate amount stool within the colon and rectum. 3. Redemonstration of a density along the inferior aspect of the cecum. This favors an undescended right testis. Nonemergent Urology consultation is recommended. 4. Airspace opacities within the lower lungs, better depicted on chest CT. These suggest pneumonia or aspiration pneumonitis. ACT 112: Negative or not required by law. Electronically signed by: Marshal Xie M.D. 05/02/2022 10:[address] 05/02/22 09:39 CT OF THE CHEST WITH IV CONTRAST CLINICAL HISTORY: vomiting, hx of food bolus COMPARISON STUDY: Chest radiograph April 25, 2022. TECHNIQUE: Following IV administration of 95 mL of Optiray, helical axial images of the chest were obtained. Sagittal and coronal reconstructions were viewed as well as maximal intensity projections on an independent 3-D workstation. Automated exposure control was utilized for the study. A dose lowering technique was utilized adhering to the principles of ALARA. CT DOSE: 818.69 mGy.cm FINDINGS: Size of the heart is normal. There is no pericardial effusion. No enlarged axillary lymph nodes are present. A slightly enlarged subcarinal lymph node on axial image 135 of 311 measures 1 cm short axis diameter. A few mildly enlarged right hilar nodes are present. A moderate sized hiatal hernia is noted. The gastric fundus, the GE junction and cardia are within the chest. The stomach is mildly fluid-filled. There is trace stranding adjacent to the distal esophag us. There is moderate circumferential esophageal wall thickening. The esophagus is mildly distended fluid-filled. There is no CT evidence for a food bolus on this exam. There is no pneumomediastinum. No pneumothorax or pleural effusion is present. Lungs are suboptimally assessed due to respiratory motion. There are extensive alveolar opacities within the right lung and moderate alveolar opacities within the left lower lobe. Linear density within the right upper lobe favors atelectasis. No acute fracture within the visualized bony thorax. Abdomen and pelvis CT will be reported separately. IMPRESSION: 1. Extensive alveolar opacities throughout the right lung and moderate alveolar opacities within the left lower lobe. The findings favor an infectious process with multifocal pneumonia. Aspiration pneumonitis could appear similar. 2. Moderate-sized hiatal hernia. GE junction, gastric cardia and fundus within the chest. Mildly distended fluid-filled stomach. 3. Mildly dilated fluid-filled esophagus with esophageal wall thickening and mild adjacent stranding. This is nonspecific but suggests esophagitis. No CT evidence for food bolus on this study. 4. Mildly enlarged subcarinal and right hilar lymph nodes. These are likely reactive. However, a follow-up chest CT in 3 months to ensure resolution is recommended. ACT 112: Negative or not required by law. Electronically signed by: Marshal Xie M.D. 05/02/2022 10:35 AM Discharge Plan Visit Data Chief Complaint: Illness Stated Complaint: illness ED Provider: Skinny Wei Discharge Problem: Aspiration pneumonia Patient Disposition: Admitted As Inpatient Forms Stand Alone Forms: [facility], [facility] Emergency Department, Important Visit Information Prescriptions Prescriptions: No Action (DME) misc Misc See Rx Instructions .ROUTE .MEDSUPPLY Qty: 1 0RF Rx Instructions: As directed- May cut Keppra tabs and Potassium tabs in HALF for easier admin. ([facility]) Briefs Medium [facility] See Rx Instructions .ROUTE .MEDSUPPLY Qty: 100 5RF Rx Instructions: Medium Brief polyethylene glycol 3350 17 gram/dose powder 17 g PO .COMPLEX Qty: 765 5RF Rx Instructions: 17 grams PO Every 3 days and as needed daily; if not bowel movement in 3 days diazepam [Diastat AcuDial] 5-7.5-10 mg kit 7.5 mg [place] UD PRN (Reason: seizure activity) Qty: 1 0RF Rx Instructions: Give 1 dose rectally if seizure lasts longer than 5 minutes and [facility] [place] 1 ea miscellaneous ONCE Qty: 1 0RF Rx Instructions: REPLACEMENT ARM PAD FOR A WHEELCHAIR propranolol 10 mg tablet See Rx Instructions .ROUTE .COMPLEX Qty: 56 5RF Dose Instruction: TAKE ONE TABLET BY MOUTH TWICE DAILY. *RAPID HEART* Rx Instructions: TAKE ONE TABLET BY MOUTH TWICE DAILY. *RAPID HEART* potassium chloride 20 mEq tablet,ER particles/crystals See Rx Instructions .ROUTE .COMPLEX Qty: 28 5RF Dose Instruction: TAKE ONE TAB BY MOUTH DAILY *POTASSIUM SUPP* Rx Instructions: TAKE ONE TAB BY MOUTH DAILY *POTASSIUM SUPP* Lubriderm Daily Moisture Lotion 1 applic topical BID Qty: 710 5RF pantoprazole [Protonix] 40 mg tablet,delayed release (DR/EC) 40 mg PO DAILYBB Qty: 90 3RF Rx Instructions: Take 1 tablet by mouth daily, one hour prior to the first meal of the day. levetiracetam [Keppra] 750 mg tablet 1,500 mg PO BID 90 Days Qty: 360 1RF topiramate 100 mg tablet 100 mg PO BID 90 Days Qty: 180 1RF (DME) Manual Wheelchair Device See Rx Instructions .ROUTE .MEDSUPPLY Qty: 1 0RF Rx Instructions: As directed aspirin 81 mg tablet,delayed release (DR/EC) 81 mg PO QAM triamcinolone acetonide 0.1 % cream 1 applic TOPICAL BID PRN (Reason: rash) Qty: 30 1RF Rx Instructions: Do not apply in same spot for longer than two weeks. lorazepam 0.5 mg tablet 0.5 mg PO BID Qty: 60 5RF acetaminophen 325 mg Tablet 650 mg PO Q6H MDD 3 GRAMS/24 HOURS PRN (Reason: Fever Or Pain) Rx Instructions: NEEDED FOR HEADACHE/MINOR ACHES AND PAIN OR TEMPERATURE GREATER THAN 100 F Debrox 6.5 % Drops 2 drp OTB 3XWK clindamycin phosphate [Cleocin T] 1 % solution 1 applic topical QAM Rx Instructions: APPLY DIRECTED TO SCALP ketoconazole [Nizoral] 2 % Shampoo 1 applic TOPICAL 2XWK Rx Instructions: USE SHAMPOO TO SCALP EVERY TUESDAY AND TUESDAY Robitussin Cough-Chest Francisco Javier DM 5-100 mg/5 mL Liquid 5 ml PO QID PRN (Reason: Congestion) Saline Nasal 0.65 % Aerosol,[place] 1 spray INTRANASAL TID PRN (Reason: Dry Nasal Passages) [place] Saline Gel [place],Non-Aerosol 1 spray INTRANASAL BID docusate sodium [Stool Softener] 100 mg capsule 100 mg PO QAM loperamide [Imodium A-D] 2 mg capsule 2 mg PO UD PRN (Reason: Diarrhea) Label Comments: TAKE 2 TABLETS AT ONSET OF LOOSE STOOL THEN TAKE 1 TABLET AFTER EACH LOOSE BOWEL MOVEMENT. TAKE NO MORE THAN 4 DOSES IN 2 DAYS. Tylenol Cold Max Day 5-10-325 mg Tablet 2 tab PO DIRECTED PRN (Reason: Cold Symptoms) alum-mag hydroxide-simeth [Antacid-Simethicone] 400-400-40 mg/5 mL Suspension 30 ml PO Q4H PRN (Reason: UPSET STOMACH/VOMITING) divalproex [Depakote ER] 500 mg tablet extended release 24 hr 500 mg PO QAM Rx Instructions: TOTAL DOSE 750 MG--TAKES WITH 250 MG TAB. sertraline 50 mg tablet 50 mg PO QAM loratadine [Claritin] 10 mg tablet 10 mg PO QAM divalproex [Depakote ER] 250 mg tablet extended release 24 hr 250 mg PO QAM Rx Instructions: TOTAL DOSE 750 MG--TAKES WITH 500 MG TAB. Aquaphor Healing 41 % ointment 1 applic TOPICAL HS Triple Antibiotic 3.5mg-400 unit- 5,000 unit/gram Ointment 1 applic TOPICAL BID calcium carbonate-vitamin D3 500 mg(1,250mg) -400 unit tablet 1 tab PO QAM cyanocobalamin (vitamin B-12) 1,000 mcg capsule 1,000 mcg PO QAM Referrals Referrals: Sofia Xie MD [Primary Care Provider] -
[2022-05-02 09:12] LABS: Basophils # (auto) 0.02 K/uL (0-0.2); Basophils % (auto) 0.3 %; Hematocrit (blood only) 40.3 % (40.1-51.0); Hemoglobin 12.8 g/dl (14.0-18.0); Immature Granulocytes # (auto) 0.02 K/uL (0.00-0.02); Immature Granulocytes % (auto) 0.3 %; Lymphocytes # (auto) 0.74 K/uL (1.2-3.4); Lymphocytes % (auto) 10.7 %; Mean Corpuscular Hemoglobin 28.7 pg (25.0-34.0); Mean Corpuscular Hgb Conc 31.8 g/dL (32.0-36.0); Mean Corpuscular Volume 90.4 fL (80.0-100.0); Mean Platelet Volume 11.1 fL (9.4-12.4); Monocytes # (auto) 0.41 K/uL (0.24-0.82); Neutrophils % (auto) 82.7 %; Platelet Count 229 K/uL (130-400); RDW Coefficient of Variation 15.3 % (11.5-14.5); RDW Standard Deviation 49.3 fL (36.4-46.3); Red Blood Count 4.46 M/uL (4.63-6.08); White Blood Count 6.89 K/ul (4.8-10.8)
[2022-05-02] MEDS ORDERED: SODIUM CHLORIDE 0.9% 1000ML 500 ML IV ONE ×2 (09:23→14:31)
[2022-05-02 09:26] LABS: INR 1.2 (0.9-1.1); Prothrombin Time 13.1 Seconds (9.0-12.0)
[2022-05-02 09:38] LABS: Albumin Globulin Ratio 1.2 (0.9-2); Albumin Level 3.8 gm/dl (3.4-5.0); BUN Creatinine Ratio 21.2 (10-20); Bilirubin,Total 0.6 mg/dl (0.2-1.0); Calcium 9.3 mg/dl (8.5-10.1); Est GFR (African American) 95.5 ml/min; Est GFR (Non-African American) 82.4 ml/min; Globulin 3.1 gm/dl (2.5-4.0); Potassium 4.6 mmol/L (3.5-5.1); Total Protein 6.9 gm/dl (6.0-8.3)
[2022-05-02] MEDS ORDERED: OPTIRAY 300 500mL IV ONE (10:15)
--- NOTE | 2022-05-02 10:37 | CT Scan Report ---
CT OF THE CHEST WITH IV CONTRAST CLINICAL HISTORY: vomiting, hx of food bolus COMPARISON STUDY: Chest radiograph April 25, 2022. TECHNIQUE: Following IV administration of 95 mL of Optiray, helical axial images of the chest were o btained. Sagittal and coronal reconstructions were viewed as well as maximal intensity projections o n an independent 3-D workstation. Automated exposure control was utilized for the study. A dose low ering technique was utilized adhering to the principles of ALARA. CT DOSE: 818.69 mGy.cm FINDINGS: Size of the heart is normal. There is no pericardial effusion. No enlarged axillary lymph nodes are present. A slightly enlarged subcarinal lymph node on axial image 135 of 311 measures 1 cm short axis diameter. A few mildly enlarged right hilar nodes are present. A moderate sized hiatal her tacos is noted. The gastric fundus, the GE junction and cardia are within the chest. The stomach is mil dly fluid-filled. There is trace stranding adjacent to the distal esophagus. There is moderate circum ferential esophageal wall thickening. The esophagus is mildly distended fluid-filled. There is no CT evidence for a food bolus on this exam. There is no pneumomediastinum. No pneumothorax or pleural eff usion is present. Lungs are suboptimally assessed due to respiratory motion. There are extensive alve olar opacities within the right lung and moderate alveolar opacities within the left lower lobe. Line ar density within the right upper lobe favors atelectasis. No acute fracture within the visualized nuria ny thorax. Abdomen and pelvis CT will be reported separately. IMPRESSION: 1. Extensive alveolar opacities throughout the right lung and moderate alveolar opacities within the left lower lobe. The findings favor an infectious process with multifocal pneumonia. Aspiration pneum onitis could appear similar. 2. Moderate-sized hiatal hernia. GE junction, gastric cardia and fundus within the chest. Mildly dist ended fluid-filled stomach. 3. Mildly dilated fluid-filled esophagus with esophageal wall thickening and mild adjacent stranding. This is nonspecific but suggests esophagitis. No CT evidence for food bolus on this study. 4. Mildly enlarged subcarinal and right hilar lymph nodes. These are likely reactive. However, a foll ow-up chest CT in 3 months to ensure resolution is recommended. ACT 112: Negative or not required by law. Electronically signed by: Marshal Xie M.D. 05/02/2022 10:35 AM
--- NOTE | 2022-05-02 10:51 | CT Scan Report ---
CT OF THE ABDOMEN AND PELVIS WITH CONTRAST CLINICAL HISTORY: emesis COMPARISON STUDY: CT of the abdomen and pelvis August 30, 2021. TECHNIQUE: Following IV administration of 95 mL of Optiray, axial images of the abdomen and pelvis we re obtained from the lung bases to the proximal femurs. Images were reviewed in the axial, sagittal, and coronal planes. IV contrast was administered without complication. Automated exposure control wa s utilized for the study. A dose lowering technique was utilized adhering to the principles of ALARA . FINDINGS: Please note that the chest CT will be reported separately. Thoracolumbar spine scoliosis is noted. Chronic deformity of the hips. Moderate sized hiatal hernia is noted. The stomach is mildly f luid-filled. Airspace opacities within the lungs are better depicted on chest CT. Pyloric wall thicke juli is probably due to underdistention. No pneumatosis, free air or portal venous gas is present. Li russell, spleen, adrenal glands, kidneys and pancreas are normal. No biliary or pancreatic ductal dilatat ion. There is no evidence for a bowel obstruction. No lymphadenopathy is present. A 3 cm density cee g the inferior aspect of the cecum was shown on CT of October 19, 2018. This likely reflects an unde scended testis. The left lateral bladder wall lesion shown on prior CT is visualized on this study al though suboptimally assessed by CT. There is a small left lateral bladder wall diverticulum. No acute fracture or suspicious lesion within the visualized skeletal structures are present. There is a mode rate amount stool within the colon and rectum. Major vasculature is patent. This study is mildly comp romised by motion artifact. IMPRESSION: 1. Moderate sized hiatal hernia with mildly dilated fluid-filled stomach. 2. No evidence for a bowel obstruction. Moderate amount stool within the colon and rectum. 3. Redemonstration of a density along the inferior aspect of the cecum. This favors an undescended ri ght testis. Nonemergent Urology consultation is recommended. 4. Airspace opacities within the lower lungs, better depicted on chest CT. These suggest pneumonia or aspiration pneumonitis. ACT 112: Negative or not required by law. Electronically signed by: Marshal Xie M.D. 05/02/2022 10:48 AM
[2022-05-02] MEDS ORDERED: AMPICILLIN/SULBACTAM SOD 3,000 MG in 0.9 % SODIUM CHLORIDE 100 ML IV STA (11:02)
[2022-05-02] MEDS ORDERED: AZITHROMYCIN 500 MG in DEXTROSE 5% 250 ML IV ONE (11:02)
--- NOTE | 2022-05-02 11:52 | History & Physical Report ---
Date of Service May 02, 2022 Assessment & Plan (1) Aspiration pneumonia: Plan: Recent admission for food emoblus. No definitive signs of aspiration at that time, but now with pneumonia, would presumed he has ongoing issue. - Strict NPO - Zosyn/azithromycin for pneumonia; atypical bacteria seems unlikely, but worth covering - MRSA swab - PRODUCTION OR PLANT ENGINEER evaluation (2) Coffee ground emesis: Plan: Caretakers report one episode of coffee ground emesis on 05/02. No melena noted by them, but different fugitive investigator did toileting the morning of admission. EGD on 04/26 was normal without note of ulcer or gastritis. - PPI IV BID - GI consulted - Monitor hgb (3) Epilepsy: Plan: While unable to take PO, switch meds to IV. - Continue Keppra 750 mg IV BID, Ativan 0.5 mg IV BID, valproate sodium to 200 mg IV Q6h (must increase dosages as there is not "ER" formulation via IV) - Hold topiramate as there is no IV equivalent - Ativan 0.5 mg IV Q6h PRN for seizure/agitation (4) Cerebral palsy: Plan: With severe ID. - No inpatient needs (5) GERD (gastroesophageal reflux disease): Plan: - Continue PPI IV daily (6) DVT prophylaxis: Plan: Lovenox 40 mg SQ daily DNR/DNI - POLST filled out by PCP in 11/2021. History of Present Illness Primary Care Provider: Sofia Xie MD 62yo M w/ hx of cerebral palsy and seizures who presents with aspiration pneumonia. Was admitted recently for food bolus (grape) in esophagus. Underwent EGD with GI. Kept overnight and evaluated by PRODUCTION OR PLANT ENGINEER. No overt aspiration on exam, and PRODUCTION OR PLANT ENGINEER recommended he be discharged on minced and moist (IDDSI 5 "slippery") diet, thin liquids, and usual aspiration precautions. He returns today with caretakers expressing Due to his cerebral palsy, he cannot provide any review of systems. Allergies Allergy/AdvReac Type Severity Reaction Status Date / Time metoclopramide Allergy Intermediate Agitation Verified 04/29/22 14:19 grapefruit Allergy Mild nasal Verified 04/29/22 14:19 congestion chocolate flavor Allergy Unknown Unknown Verified 04/29/22 14:19 Home Medications Medication Instructions Recorded Confirmed Type acetaminophen 325 mg tablet 650 mg PO Q6H PRN Fever Or Pain 10/19/18 04/29/22 History carbamide peroxide 6.5 % ear drops 2 drp OTB 3XWK 10/19/18 04/29/22 History (Debrox) clindamycin phosphate 1 % topical 1 applic topical QAM 10/19/18 04/29/22 History solution (Cleocin T) dextromethorphan-guaifenesin 5 5 ml PO QID PRN Congestion 02/08/19 04/29/22 History mg-100 mg/5 mL oral liquid (Robitussin Cough-Chest Congestion DM) ketoconazole 2 % shampoo (Nizoral) 1 applic topical 2XWK 02/08/19 04/29/22 History sodium chloride 0.65 % nasal spray 1 spray intranasal TID PRN Dry 02/08/19 04/29/22 History aerosol (Saline Nasal) Nasal Passages sodium chloride-aloe vera nasal 1 spray intranasal BID 02/08/19 04/29/22 History spray ([place] Saline Gel nasal spray) docusate sodium 100 mg capsule 100 mg PO QAM 03/12/19 04/29/22 History (Stool Softener) [id number]-TH-[id number] 5 2 tab PO DIRECTED PRN Cold 04/07/19 04/29/22 History mg-10 mg-325 mg tablet (Tylenol Symptoms Cold Max Day) loperamide 2 mg capsule (Imodium 2 mg PO UD PRN Diarrhea 06/03/19 04/29/22 History A-D) Jobst Stockings (misc) #1 ea 09/18/19 04/29/22 Rx Wheelchair (Manual) (Manual #1 ea 11/07/19 04/29/22 Rx Wheelchair) diaper,brief,adult,disposable #100 ea 03/19/20 04/29/22 Rx (Briefs Medium) aluminum-mag hydroxide-simethicone 30 ml PO Q4H PRN UPSET 03/25/20 04/29/22 History 400 mg-400 mg-40 mg/5 mL oral susp STOMACH/VOMITING (Antacid-Simethicone) polyethylene glycol 3350 17 17 g PO .COMPLEX #765 grams 09/03/21 04/29/22 Rx gram/dose oral powder calcium carbonate 500 mg-vitamin 1 tab PO QAM 10/01/21 04/29/22 History D3 10 mcg (400 unit) tablet cyanocobalamin (vitamin B-12) 1,000 mcg PO QAM 10/01/21 04/29/22 History 1,000 mcg capsule diazepam 5 mg-7.5 mg-10 mg rectal 7.5 mg IN UD PRN seizure activity 10/05/21 04/29/22 Rx kit (Diastat AcuDial) #1 ea aspirin 81 mg tablet,delayed 81 mg PO QAM 11/03/21 04/29/22 History release triamcinolone acetonide 0.1 % 1 applic topical BID PRN rash #30 11/03/21 04/29/22 Rx topical cream grams miscellaneous medical supply 1 ea miscellaneous ONCE #1 ea 11/27/21 04/29/22 Rx potassium chloride 20 mEq See Rx Instructions .Route 12/01/21 04/29/22 Rx tablet,extended release(part/cryst) .COMPLEX #28 tabs propranolol 10 mg tablet See Rx Instructions .Route 12/01/21 04/29/22 Rx .COMPLEX #56 tabs emollient combination no.92 1 applic topical BID Dry skin #710 12/15/21 04/29/22 Rx (Lubriderm Daily Moisture lotion) mL divalproex 250 mg tablet,extended 250 mg PO QAM 04/12/22 04/29/22 History release 24 hr (Depakote ER) divalproex 500 mg tablet,extended 500 mg PO QAM 04/12/22 04/29/22 History release 24 hr (Depakote ER) loratadine 10 mg tablet (Claritin) 10 mg PO QAM allergies 04/12/22 04/29/22 History neomycin-bacitracn Zn-polymyx 3.5 1 applic topical BID 04/12/22 04/29/22 History mg-400 unit-5,000 unit/gram top oint (Triple Antibiotic) sertraline 50 mg tablet 50 mg PO QAM 04/12/22 04/29/22 History white petrolatum 41 % topical 1 applic topical HS 04/12/22 04/29/22 History ointment (Aquaphor Healing) pantoprazole 40 mg tablet,delayed 40 mg PO DAILYBB #90 tabs 04/15/22 04/29/22 Rx release (Protonix) levetiracetam 750 mg tablet 1,500 mg PO BID 90 days #360 tabs 04/27/22 04/29/22 Rx (Keppra) topiramate 100 mg tablet 100 mg PO BID 90 days #180 tabs 04/27/22 04/29/22 Rx lorazepam 0.5 mg tablet 0.5 mg PO BID #60 tabs 04/29/22 04/29/22 Rx Past Med/Surg History Medical History Allergic rhinitis Alternating exotropia Anemia Aphasia Bipolar disorder Bladder carcinoma s/p TURBT 10/2021 Cataracts, both eyes Cerebral palsy Chronic constipation Chronic periodontitis Dermatitis Epilepsy GERD (gastroesophageal reflux disease) History of prematurity Hyperlipidemia Microcephaly Mood disorder PAD (peripheral artery disease) Paraplegia Paroxysmal atrial tachycardia Ptosis, left eyelid Scoliosis Severe intellectual disabilities Spina bifida Surgical History H/O transurethral destruction of bladder lesion 12/2021 History of removal of neck cyst Family History Other Family history non-contributory Social History Smoking Status: Never smoker Hx Alcohol Use: No Hx Substance Use: No Preferred Language: Danish Communication Ability: non verbal Visual 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 Limited Technical Fellow Required: No Beliefs That Will Affect Care: None marital status: Single Current Living Situation: Prison Current Living Situation Comment: Lives at [facility] current occupational status: disabled Feels Safe at Home: Yes caffeine: Yes Dental Care, Regularly: Yes Assistive Devices: Wheelchair Review of Systems Review of Systems: All systems reviewed & are unremarkable except as noted in HPI & below Physical Exam Constitutional: WD/WN, vitals as above + acute distress and + thin Eyes: EOM intact bilaterally; no conjunctival abnormality ENMT: external ear and nose normal, oropharynx normal Neck: trachea midline, no thyromegaly normal visual inspection Respiratory: normal respiratory effort, lungs clear to auscultation no respiratory distress Cardiovascular: RRR, no murmur, no edema Gastrointestinal (Abdomen): Inspection/Auscultation: abdomen normal to inspection; abdomen not distended Skin: no rashes, warm and dry Neurologic: moves all extremities and awake Psychiatric: Orientation: + not alert and + not oriented to person Results & Data Results & Data ([facility]) Vital Signs (Past 12 Hours) Vital Signs Temp Pulse Pulse Resp BP BP Pulse Ox 05/02/22 11:24 125 H 18 109/65 94 05/02/22 10:18 127 H 24 117/65 93 05/02/22 09:04 92 05/02/22 09:04 37.6 C H 131 H 18 79/60 L 91 O2 Del Method O2 Flow Rate 05/02/22 11:24 Nasal Cannula 2 05/02/22 10:18 Nasal Cannula 2 05/02/22 09:04 Nasal Cannula 2 05/02/22 09:04 Room Air Code Status & VTE Plan VTE Prophylaxis Plan VTE Prophylaxis will be ordered: Yes PG Care Time/CCT Total # of Minutes Spent Total Time Spent with Patient: Total time spent is greater than 50% in coordination of care (as documented) at patient's floor/unit and/or counseling patient: Coding Level of Care Code 98128 Initial Inpt Care Lvl 3 Diagnoses Aspiration pneumonia J69.0 Coffee ground emesis K92.0 Epilepsy G40.909 Cerebral palsy G80.9 GERD (gastroesophageal reflux disease) K21.9 DVT prophylaxis Z29.9
[2022-05-02] MEDS ORDERED: ACETAMINOPHEN 1,000 MG/100 ML VIAL IV STA (14:16)
--- NOTE | 2022-05-02 16:01 | Ultrasound Report ---
LEFT LOWER EXTREMITY VENOUS DOPPLER CLINICAL HISTORY: Possible DVT. Left lower extremity pain and swelling. COMPARISON STUDY: Left lower extremity venous Doppler ultrasound October 2015. TECHNIQUE: Sonography of the deep venous system of the left lower extremity was performed. Compressi on and augmentation were evaluated. FINDINGS: The left common femoral, superficial femoral and popliteal veins were compressible. Augmen tation was normal. Flow was shown within the deep calf vessels. IMPRESSION: No evidence of deep venous thrombus within the left lower extremity. ACT 112: Negative or not required by law. Electronically signed by: Marshal Xie M.D. 05/02/2022 4:00 PM
[2022-05-02] MEDS ORDERED: PANTOprazole 40 MG in SYRINGE 0 ML IV SCH (17:03)
[2022-05-02] MEDS ORDERED: SODIUM CHLORIDE 0.9% 1000ML 1,000 ML IV SCH (17:03)
[2022-05-02] MEDS ORDERED: LORazepam 2 MG/1 ML VIAL IV PRN (17:03)
[2022-05-02] MEDS ORDERED: LORazepam 0.5 MG in SYRINGE 0.25 ML IV PRN (17:48)
[2022-05-02 18:14] LABS: Hematocrit (blood only) 27.6 % (40.1-51.0); Hemoglobin 8.7 g/dl (14.0-18.0)
[2022-05-02] MEDS: VALPROATE SOD IV SCH (18:38)
[2022-05-02] MEDS: DEXTROSE 5% IV SCH (18:38)
[2022-05-02 19:06] LABS: Hematocrit (blood only) 25.3 % (40.1-51.0)
[2022-05-02] MEDS ORDERED: SODIUM CHLORIDE 0.9% 250 ML IV PRN (19:22)
[2022-05-02] MEDS: PIPERACILLIN/TAZOBACTAM 3.375 GM in DEXTROSE 5% 100 ML IV SCH (19:51)
--- NOTE | 2022-05-02 20:48 | Electrocardiogram Report ---
Test Reason : Blood Pressure : / mmHG Vent. Rate : 130 BPM Atrial Rate : 130 BPM P-R Int : 128 ms QRS Dur : 074 ms QT Int : 286 ms P-R-T Axes : 053 063 062 degrees QTc Int : 420 ms Poor data quality, interpretation may be adversely affected Sinus tachycardia Nonspecific ST abnormality When compared with ECG of 21-APR-2022 06:04, HR has increased Confirmed by Simón Marks ([id number]) on 05/02/2022 8:48:11 PM Referred By: REFERRED SELF Confirmed By:Simón Marks
[2022-05-02] MEDS: LORazepam 0.5 MG in SYRINGE 0.25 ML IV SCH (20:55)
[2022-05-02] MEDS ORDERED: SODIUM CHLORIDE 0.9% IV SCH (21:00)
[2022-05-02] MEDS ORDERED: LORazepam 2 MG/1 ML VIAL IV SCH (21:00)
[2022-05-02] MEDS ORDERED: LEVETIRACETAM IV SCH (21:00)
[2022-05-02] MEDS: PANTOprazole 40 MG in DEXTROSE 5% 100 ML IV SCH (23:16)
[2022-05-02] MEDS ORDERED: Nursing to Pharmacy Communication SCH (23:45)
[2022-05-03] MEDS: DEXTROSE 5% IV SCH ×4 (00:10→18:15)
[2022-05-03] MEDS: VALPROATE SOD IV SCH ×4 (00:10→18:15)
[2022-05-03] MEDS: PIPERACILLIN/TAZOBACTAM 3.375 GM in DEXTROSE 5% 100 ML IV SCH ×3 (01:55→18:15)
[2022-05-03 02:51] LABS: BUN Creatinine Ratio 21.4 (10-20); Creatinine Clr Calc Pharmacy 91.9 ml/min; Est GFR (African American) 118.9 ml/min; Est GFR (Non-African American) 102.6 ml/min; Magnesium 1.8 mg/dl (1.7-2.4); Potassium 3.4 mmol/L (3.5-5.1)
[2022-05-03 02:59] LABS: Hematocrit (blood only) 36.4 % (40.1-51.0); Hemoglobin 12.2 g/dl (14.0-18.0); Mean Corpuscular Hemoglobin 30.2 pg (25.0-34.0); Mean Corpuscular Hgb Conc 33.5 g/dL (32.0-36.0); Mean Corpuscular Volume 90.1 fL (80.0-100.0); Mean Platelet Volume 10.2 fL (9.4-12.4); Platelet Count 125 K/uL (130-400); RDW Coefficient of Variation 14.6 % (11.5-14.5); RDW Standard Deviation 47.4 fL (36.4-46.3); Red Blood Count 4.04 M/uL (4.63-6.08); White Blood Count 8.52 K/ul (4.8-10.8)
[2022-05-03] MEDS: PANTOprazole 40 MG in DEXTROSE 5% 100 ML IV SCH ×2 (04:25→08:44)
[2022-05-03 07:34] LABS: Hematocrit (blood only) 39.9 % (40.1-51.0); Hemoglobin 13.3 g/dl (14.0-18.0); Mean Corpuscular Hemoglobin 29.8 pg (25.0-34.0); Mean Corpuscular Hgb Conc 33.3 g/dL (32.0-36.0); Mean Corpuscular Volume 89.5 fL (80.0-100.0); Mean Platelet Volume 10.6 fL (9.4-12.4); Platelet Count 136 K/uL (130-400); RDW Coefficient of Variation 15.1 % (11.5-14.5); RDW Standard Deviation 48.8 fL (36.4-46.3); Red Blood Count 4.46 M/uL (4.63-6.08); White Blood Count 9.62 K/ul (4.8-10.8)
[2022-05-03 07:54] LABS: Albumin Globulin Ratio 1.2 (0.9-2); BUN Creatinine Ratio 19.1 (10-20); Bilirubin,Total 0.9 mg/dl (0.2-1.0); Calcium 8.3 mg/dl (8.5-10.1); Creatinine Clr Calc Pharmacy 97.4 ml/min; Est GFR (African American) 120.3 ml/min; Est GFR (Non-African American) 103.8 ml/min; Globulin 2.5 gm/dl (2.5-4.0); Potassium 3.4 mmol/L (3.5-5.1); Total Protein 5.5 gm/dl (6.0-8.3)
[2022-05-03] MEDS: ENOXAPARIN INJ 40 MG/0.4 ML SYR SQ SCH (08:42)
[2022-05-03] MEDS: levETIRAcetam 750 MG in 0.9 % SODIUM CHLORIDE 100 ML IV SCH ×2 (08:44→21:21)
[2022-05-03] MEDS: ONDANSETRON INJ 2 MG/ML 2 ML VIAL IV PRN (08:45)
[2022-05-03] MEDS: ACETAMINOPHEN 1,000 MG/100 ML VIAL IV PRN ×2 (08:45→20:49)
[2022-05-03] MEDS: LORazepam 0.5 MG in SYRINGE 0.25 ML IV SCH ×2 (08:50→21:43)
[2022-05-03] MEDS: D5NSS + 20MEQ KCL 20 MEQ/1,000 ML BAG IV SCH (10:05)
[2022-05-03] MEDS: AZITHROMYCIN 500 MG in DEXTROSE 5% 250 ML IV SCH (12:23)
--- NOTE | 2022-05-03 16:03 | Gastrointestinal Consultation ---
Date of Consultation May 03, 2022 Assessment & Plan (1) Aspiration pneumonia: Appreciate primary hospitalists management of pneumonia/antibiotics. (2) Hematemesis: One episode prior to admission, now stable post transfusion. Watching Hb/Hct. If hgb stable overnight, then consider IV bolus PPI. Supervising Physician Co-Signing Physician Notes Attg add: I interviewed and examined pt, reviewed chart and labs. Pt with CP admit last week with food bolus now with pneumonia. He is currently tachy, febrile, and hypotensive on Zosyn. We are consulted for coffee grounds, with hgb 12--> 8 --> 13 after 2 units. BUN is WNL and EGD last week showed no source UGIB. Returner denies any symptoms of aspiration or dypshagia. Follow hgb. PPI recs as above. Defer endoscopy. Management of sepsis, per primary service. History of Present Illness Reason for Consultation: Coffee ground emesis Requesting Physician: Dr. Dany Saenz Attending Physician: Mg Concepcion MD History of Present Illness Mr. Donny Wang is a 62 yr old male pt of Dr. Sofia kay a hx of CP, who underwent EGD for food bolus last week and is now admitted for aspiration pneumonia. We spoke with a caregiver: Mable at the bedside. The pt is a resident at a personal correction. She tells us that the pt can typically eat well, initially having problems last Tuesday when he was give yogurt with whole grapes which she guesses he swallowed whole as he typically takes his pills with yogurt. CT yesterday bilat lower lung opacities, with moderately large hiatal hernia and dilated esophagus and stomach. Today: fever, lethargy. GI is actually consulted for concern regarding GI bleed. He had an episode of hematemesis that occurred yesterday at the personal correction. Hb dropped from 12 last week ->8, then received 2 units of RBCs and today returned to 13. No further gross GI bleeding. He is passing small, hard brown BMs. Allergies Allergy/AdvReac Type Severity Reaction Status Date / Time metoclopramide Allergy Intermediate Agitation Verified 04/29/22 14:19 grapefruit Allergy Mild nasal Verified 04/29/22 14:19 congestion chocolate flavor Allergy Unknown Unknown Verified 04/29/22 14:19 Home Medications Medication Instructions Recorded Confirmed Type acetaminophen 325 mg tablet 650 mg PO Q6H PRN Fever Or Pain 10/19/18 04/29/22 History carbamide peroxide 6.5 % ear drops 2 drp OTB 3XWK 10/19/18 04/29/22 History (Debrox) clindamycin phosphate 1 % topical 1 applic topical QAM 10/19/18 04/29/22 History solution (Cleocin T) dextromethorphan-guaifenesin 5 5 ml PO QID PRN Congestion 02/08/19 04/29/22 History mg-100 mg/5 mL oral liquid (Robitussin Cough-Chest Congestion DM) ketoconazole 2 % shampoo (Nizoral) 1 applic topical 2XWK 02/08/19 04/29/22 History sodium chloride 0.65 % nasal spray 1 spray intranasal TID PRN Dry 02/08/19 04/29/22 History aerosol (Saline Nasal) Nasal Passages sodium chloride-aloe vera nasal 1 spray intranasal BID 02/08/19 04/29/22 History spray ([place] Saline Gel nasal spray) docusate sodium 100 mg capsule 100 mg PO QAM 03/12/19 04/29/22 History (Stool Softener) [id number]-TP-lsswahwanxycp 5 2 tab PO DIRECTED PRN Cold 04/07/19 04/29/22 History mg-10 mg-325 mg tablet (Tylenol Symptoms Cold Max Day) loperamide 2 mg capsule (Imodium 2 mg PO UD PRN Diarrhea 06/03/19 04/29/22 History A-D) Jobst Stockings (misc) #1 ea 09/18/19 04/29/22 Rx Wheelchair (Manual) (Manual #1 ea 11/07/19 04/29/22 Rx Wheelchair) diaper,brief,adult,disposable #100 ea 03/19/20 04/29/22 Rx (Briefs Medium) aluminum-mag hydroxide-simethicone 30 ml PO Q4H PRN UPSET 03/25/20 04/29/22 History 400 mg-400 mg-40 mg/5 mL oral susp STOMACH/VOMITING (Antacid-Simethicone) polyethylene glycol 3350 17 17 g PO .COMPLEX #765 grams 09/03/21 04/29/22 Rx gram/dose oral powder calcium carbonate 500 mg-vitamin 1 tab PO QAM 10/01/21 04/29/22 History D3 10 mcg (400 unit) tablet cyanocobalamin (vitamin B-12) 1,000 mcg PO QAM 10/01/21 04/29/22 History 1,000 mcg capsule diazepam 5 mg-7.5 mg-10 mg rectal 7.5 mg NV UD PRN seizure activity 10/05/21 04/29/22 Rx kit (Diastat AcuDial) #1 ea aspirin 81 mg tablet,delayed 81 mg PO QAM 11/03/21 04/29/22 History release triamcinolone acetonide 0.1 % 1 applic topical BID PRN rash #30 11/03/21 04/29/22 Rx topical cream grams miscellaneous medical supply 1 ea miscellaneous ONCE #1 ea 11/27/21 04/29/22 Rx potassium chloride 20 mEq See Rx Instructions .Route 12/01/21 04/29/22 Rx tablet,extended release(part/cryst) .COMPLEX #28 tabs propranolol 10 mg tablet See Rx Instructions .Route 12/01/21 04/29/22 Rx .COMPLEX #56 tabs emollient combination no.92 1 applic topical BID Dry skin #710 12/15/21 04/29/22 Rx (Lubriderm Daily Moisture lotion) mL divalproex 250 mg tablet,extended 250 mg PO QAM 04/12/22 04/29/22 History release 24 hr (Depakote ER) divalproex 500 mg tablet,extended 500 mg PO QAM 04/12/22 04/29/22 History release 24 hr (Depakote ER) loratadine 10 mg tablet (Claritin) 10 mg PO QAM allergies 04/12/22 04/29/22 History neomycin-bacitracn Zn-polymyx 3.5 1 applic topical BID 04/12/22 04/29/22 History mg-400 unit-5,000 unit/gram top oint (Triple Antibiotic) sertraline 50 mg tablet 50 mg PO QAM 04/12/22 04/29/22 History white petrolatum 41 % topical 1 applic topical HS 04/12/22 04/29/22 History ointment (Aquaphor Healing) pantoprazole 40 mg tablet,delayed 40 mg PO DAILYBB #90 tabs 04/15/22 04/29/22 Rx release (Protonix) levetiracetam 750 mg tablet 1,500 mg PO BID 90 days #360 tabs 04/27/22 04/29/22 Rx (Keppra) topiramate 100 mg tablet 100 mg PO BID 90 days #180 tabs 04/27/22 04/29/22 Rx lorazepam 0.5 mg tablet 0.5 mg PO BID #60 tabs 04/29/22 04/29/22 Rx Patient History Medical History Allergic rhinitis Alternating exotropia Anemia Aphasia Bipolar disorder Bladder carcinoma s/p TURBT 10/2021 Cataracts, both eyes Cerebral palsy Chronic constipation Chronic periodontitis Dermatitis Epilepsy GERD (gastroesophageal reflux disease) History of prematurity Hyperlipidemia Microcephaly Mood disorder PAD (peripheral artery disease) Paraplegia Paroxysmal atrial tachycardia Ptosis, left eyelid Scoliosis Severe intellectual disabilities Spina bifida Surgical History H/O transurethral destruction of bladder lesion 12/2021 History of removal of neck cyst Family History Other Family history non-contributory Social History Smoking Status: Never smoker Hx Alcohol Use: No Hx Substance Use: No Preferred Language: [place]ese Communication Ability: Unable Visual 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 Limited Glove Parts Cutter Required: No Beliefs That Will Affect Care: None marital status: Single Current Living Situation: Personal Care Facility Current Living Situation Comment: Lives at [facility] current occupational status: disabled Feels Safe at Home: Yes caffeine: Yes Dental Care, Regularly: Yes Assistive Devices: Wheelchair Review of Systems Review of Systems: Unable to obtain ROS from the pt. Discussed with Ana Rosa, the care provider as per HPI. Physical Exam Constitutional: Appears lethargic, minimally interactive, today not verbally communicative. Does have eyes open and reacts to verbal/tactile stimulus. Neck: trachea midline, no thyromegaly Respiratory: diminished, no adventitious lung sounds. Cardiovascular: RRR, no murmur, no edema Gastrointestinal (Abdomen): Inspection/Auscultation: abdomen normal to inspection; abdomen not distended Percussion/Palpation: + abdomen tender; + abdomen not soft few BS present Skin: no rashes, warm and dry Lymphatic: no cervical or axillary lymphadenopathy Results & Data ([facility]) Vital Signs (Past 12 Hours) Vital Signs Temp Pulse Resp BP Pulse Ox O2 Del Method 05/03/22 07:57 38.0 C H 97 H 16 115/69 97 Room Air Laboratory Results WBC 9.6, Hb 13, Hct 39, Plts 136, Na 144, K 3.4, Cl 118, CO2 19, Bun 13, Cr 0.6, glucose [address] 05/02/22: 1. Extensive alveolar opacities throughout the right lung and moderate alveolar opacities within the left lower lobe. The findings favor an infectious process with multifocal pneumonia. Aspiration pneumonitis could appear similar. 2. Moderate-sized hiatal hernia. GE junction, gastric cardia and fundus within the chest. Mildly distended fluid-filled stomach. 3. Mildly dilated fluid-filled esophagus with esophageal wall thickening and mild adjacent stranding. This is nonspecific but suggests esophagitis. No CT evidence for food bolus on this study. 4. Mildly enlarged subcarinal and right hilar lymph nodes. These are likely reactive. However, a follow-up chest CT in 3 months to ensure resolution is recommended Abd/pelvis CT w IV contrast 05/02/22: 1. Moderate sized hiatal hernia with mildly dilated fluid-filled stomach. 2. No evidence for a bowel obstruction. Moderate amount stool within the colon and rectum. 3. Redemonstration of a density along the inferior aspect of the cecum. This favors an undescended right testis. Nonemergent Urology consultation is recommended. 4. Airspace opacities within the lower lungs, better depicted on chest CT. These suggest pneumonia or aspiration pneumonitis. (1) Aspiration pneumonia Aspiration pneumonia type: unspecified Laterality: bilateral Lung location: unspecified part of lung Qualified Code(s): J69.0 - Pneumonitis due to inhalation of food and vomit
[2022-05-04] MEDS: D5NSS + 20MEQ KCL 20 MEQ/1,000 ML BAG IV SCH ×2 (00:06→13:17)
[2022-05-04] MEDS: DEXTROSE 5% IV SCH ×4 (00:07→19:21)
[2022-05-04] MEDS: VALPROATE SOD IV SCH ×4 (00:07→19:21)
[2022-05-04] MEDS: PIPERACILLIN/TAZOBACTAM 3.375 GM in DEXTROSE 5% 100 ML IV SCH ×4 (02:00→19:29)
[2022-05-04 08:32] LABS: BUN Creatinine Ratio 9.2 (10-20); Calcium 8.1 mg/dl (8.5-10.1); Creatinine Clr Calc Pharmacy 103.1 ml/min; Est GFR (African American) 122.6 ml/min; Est GFR (Non-African American) 105.7 ml/min; Potassium 3.6 mmol/L (3.5-5.1)
[2022-05-04] MEDS: levETIRAcetam 750 MG in 0.9 % SODIUM CHLORIDE 100 ML IV SCH ×2 (09:12→21:07)
[2022-05-04] MEDS: ENOXAPARIN INJ 40 MG/0.4 ML SYR SQ SCH (09:15)
--- NOTE | 2022-05-04 09:38 | Hospitalist Progress Note ---
Date of Service May 03, 2022 Assessment & Plan (1) Aspiration pneumonia: Plan: Recent admission for food emoblus. No definitive signs of aspiration at that time, but now with apparent pneumonia. Speech therapy assessment requested. He will remain n.p.o. for now and continue Zosyn and a azithromycin. (2) Coffee ground emesis: Plan: Caretakers report one episode of coffee ground emesis on 05/02. No melena noted by them, but different heavy cleaner did toileting the morning of admission. EGD on 04/26 was normal without note of ulcer or gastritis. Continue PPI therapy. GI consultation pending. Monitor hemoglobin levels (3) Epilepsy: Plan: While unable to take PO, switched meds to IV. Continue Keppra , Ativan, valproate sodium . Hold topiramate as there is no IV equivalent (4) Cerebral palsy: Plan: With severe ID. Provide supportive care (5) GERD (gastroesophageal reflux disease): Plan: Continue PPI IV daily (6) DVT prophylaxis: Plan: Lovenox 40 mg SQ daily DNR/DNI - POLST filled out by PCP in 11/2021. Plan Eventual discharge back to custodial Admission and Anticipated Discharge Date Admission Date: May 02, 2022 Subjective Patient is somnolent at the time of my examination and will be kept n.p.o. for now. He remains on intravenous Zosyn and a azithromycin. He is also receiving intravenous Keppra lorazepam and valproate to control the seizure disorder. Potassium added to IV fluids. Review of Systems Review of Systems: The patient is somnolent and cannot answer any questions regarding review systems Physical Exam Physical Exam: General-somnolent , no fevers, no chills HEENT-head atraumatic and normocephalic, pupils equal and reactive to light, extraocular muscles intact Neck-no lymphadenopathy or thyromegaly, trachea midline Chest-scattered bilateral rhonchi. No wheezing. Cardiac-regular rate and rhythm, normal S1 and S2, no murmurs Abdomen-normal bowel sounds, nontender, no hepatosplenomegaly Extremities-no cyanosis, clubbing, or edema Neuro-the patient is somnolent and cannot participate in neurological evaluation Psych-cannot assess Results & Data Results & Data ([facility]) Vital Signs (Past 12 Hours) Vital Signs Temp Pulse Pulse Pulse Resp BP Pulse Ox 05/03/22 22:30 89 05/04/22 03:46 36.8 C 75 20 103/62 99 05/04/22 00:11 37.9 C H 05/03/22 22:50 38.6 C H 88 20 92/55 L 99 O2 Del Method 05/03/22 22:30 05/04/22 03:46 Room Air 05/04/22 00:11 05/03/22 22:50 Room Air Laboratory Results 05/04/22 07:27 05/04/22 07:27 PG Care Time/CCT Total # of Minutes Spent Total Time Spent with Patient: Total time spent is greater than 50% in coordination of care (as documented) at patient's floor/unit and/or counseling patient: Coding Level of Care Code 90239 Subseq Hosp Care Lvl 3 Diagnoses Aspiration pneumonia J69.0 Coffee ground emesis K92.0 Epilepsy G40.909 Cerebral palsy G80.9 GERD (gastroesophageal reflux disease) K21.9 DVT prophylaxis Z29.9
--- NOTE | 2022-05-04 10:18 | Gastroenterology Progress Note ---
Date of Service May 04, 2022 Assessment & Plan (1) Hematemesis: (2) Aspiration pneumonia: Plan No further evidence of GI bleeding since consult for hematemesis but will check CBC. If no significant drop in Hb, then no plans for EGD. If no significant Hb drop, GI will sign off. Regarding dysphagia, recommend working w speech pathology to verify no oral/pharyngeal dysphagia and advance diet texture as recommended by that service. Due to hiatal hernia, most of the stomach is in the chest, so not a candidate for endoscopic PEG tube placement. If needed and family is requesting then would need surgical placement of a gastric or more likely a J tube. Admission and Anticipated Discharge Date Admission Date: May 02, 2022 Supervising Physician Co-Signing Physician Notes Attg add: I interviewed and examined pt, reviewed chart and labs. Hgb is stable. No gross bleeding. Moses PO. Cont Protonix once daily. Defer EGD given resp infection, recent EGD without bleeding. Diet per speech path recommendations. Follow Hgb daily. Pls call with questions. Subjective 62 yr old male w CP. Food bolus last week. Admitted for multifocal aspiration pneumonia on 05/02. Improving. Awake this morning. Care providers say he is nearly back to his regular self. Most recent fever at midnight: 37.9. ON Zithromax and Zosyn. Review of Systems Review of Systems: Unable to obtain ROS from pt, non verbal Physical Exam Physical Exam: Constitutional:L Awake, alert, inte ractive, non verba l but making his " usual noised" bal/ tactile Neck: trachea midline, n o thyromegaly Respiratory: diminished, no adv entitious lung gene nds. Cardiovascular:L RRR, no murmur, no edema Gastrointestinal ( Abdomen): Inspection/Auscult ation: abdomen nor mal to inspection; abdomen not diste nded Percussion/P alpation: No abdom inal tenderness; a bd soft, BS presen t Skin: no rashes, warm an d dry Lymphatic: no cervical or axi llary lymphadenopa thy Results & Data ([facility]) Vital Signs (Past 12 Hours) Vital Signs Temp Pulse Pulse Pulse Resp BP Pulse Ox 05/03/22 22:30 89 05/04/22 03:46 36.8 C 75 20 103/62 99 05/04/22 00:11 37.9 C H 05/03/22 22:50 38.6 C H 88 20 92/55 L 99 O2 Del Method 05/03/22 22:30 05/04/22 03:46 Room Air 05/04/22 00:11 05/03/22 22:50 Room Air Laboratory Results NA 142, K3.6, CL 115, CO2 19, BUN 6, CR 0.65 Diagnostic Findings CTAP 2 IV 05/02/22: 1. Moderate sized hiatal hernia with mildly dilated fluid-filled stomach. 2. No evidence for a bowel obstruction. Moderate amount stool within the colon and rectum. 3. Redemonstration of a density along the inferior aspect of the cecum. This favors an undescended right testis. Nonemergent Urology consultation is recommended. 4. Airspace opacities within the lower lungs, better depicted on chest CT. These suggest pneumonia or aspiration pneumonitis. (1) Aspiration pneumonia Aspiration pneumonia type: unspecified Laterality: bilateral Lung location: unspecified part of lung Qualified Code(s): J69.0 - Pneumonitis due to inhalation of food and vomit
[2022-05-04 10:22] LABS: Basophils # (auto) 0.03 K/uL (0-0.2); Basophils % (auto) 0.3 %; Eosinophils % (auto) 3.8 %; Hematocrit (blood only) 40.6 % (40.1-51.0); Hemoglobin 13.3 g/dl (14.0-18.0); Immature Granulocytes # (auto) 0.08 K/uL (0.00-0.02); Immature Granulocytes % (auto) 0.8 %; Lymphocytes # (auto) 0.88 K/uL (1.2-3.4); Lymphocytes % (auto) 8.3 %; Mean Corpuscular Hemoglobin 29.6 pg (25.0-34.0); Mean Corpuscular Hgb Conc 32.8 g/dL (32.0-36.0); Mean Corpuscular Volume 90.4 fL (80.0-100.0); Mean Platelet Volume 10.7 fL (9.4-12.4); Monocytes # (auto) 0.65 K/uL (0.24-0.82); Monocytes % (auto) 6.1 %; Neutrophils # (auto) 8.53 K/uL (1.4-6.5); Neutrophils % (auto) 80.7 %; Platelet Count 168 K/uL (130-400); RDW Coefficient of Variation 15.1 % (11.5-14.5); RDW Standard Deviation 49.6 fL (36.4-46.3); Red Blood Count 4.49 M/uL (4.63-6.08); White Blood Count 10.57 K/ul (4.8-10.8)
[2022-05-04] MEDS: LORazepam 0.5 MG in SYRINGE 0.25 ML IV SCH ×2 (10:22→20:08)
[2022-05-04] MEDS: ACETAMINOPHEN 1,000 MG/100 ML VIAL IV PRN ×2 (10:36→21:15)
[2022-05-04] MEDS: AZITHROMYCIN 500 MG in DEXTROSE 5% 250 ML IV SCH (11:11)
--- NOTE | 2022-05-04 14:00 | XRay Report ---
XR chest 1V portable HISTORY: Follow-up pneumonia COMPARISON: Chest CT 05/02/2022. FINDINGS: There are low lung volumes. No pneumothorax. The heart remains enlarged. Suspect a trace ri ght pleural effusion. There is a large hiatus hernia again noted. Interstitial thickening and multifo alise bilateral airspace opacities have slightly progressed. IMPRESSION: Interval progression of the diffuse interstitial thickening and multifocal bilateral airspace opaciti es. This could represent a pneumonia or pulmonary edema. ACT 112: Negative or not required by law. Electronically signed by: Joe Fleming M.D. 05/04/2022 1:59 PM
[2022-05-04] MEDS ORDERED: FUROSEMIDE 40 MG/4 ML VIAL IV ONE (14:09)
--- NOTE | 2022-05-04 14:15 | Hospitalist Progress Note ---
Date of Service May 04, 2022 Assessment & Plan (1) Abnormal CXR: Plan: Diffuse bilateral infiltrates may be pulmonary edema. IV fluids discontinued. Administer intravenous Lasix once today, May 04 and monitor intake and output. May need repeat chest x-ray tomorrow, May 05. Continue Zosyn and azithromycin for now, day 3 (2) Hematemesis: Plan: The patient had unremarkable EGD on April 26. No overt hematemesis this admission. GI consultation appreciated. Continue intravenous Protonix. (3) Aspiration pneumonia: Plan: Suspected. He remains on intravenous Zosyn and azithromycin. Serial chest x- rays until clear (4) Seizure: Plan: Seizure disorder is chronic. Continue current medical management. (5) Cerebral palsy: Plan: Supportive care Plan Eventual discharge back to snf Admission and Anticipated Discharge Date Admission Date: May 02, 2022 Subjective The patient is awake and alert today. Portable chest x-ray was obtained which reveals diffuse bilateral infiltrates which could be edema. IV fluids were discontinued and Lasix administered intravenously x1 dose. Will monitor respons e. BNP is pending. He remains on Zosyn and azithromycin, day 3. Review of Systems Review of Systems: The patient is nonverbal with me and unable to comply with review of systems questions Physical Exam Physical Exam: General-alert. Nonverbal with me. Underlying mental retardation. HEENT-head atraumatic and normocephalic, pupils equal and reactive to light, extraocular muscles intact Neck-no lymphadenopathy or thyromegaly, trachea midline Chest-scattered bilateral rhonchi. No wheezing Cardiac-regular rate and rhythm, normal S1 and S2 Abdomen-normal bowel sounds, nontender, no hepatosplenomegaly Extremities-no cyanosis, clubbing, or edema Neuro-baseline severe mental retardation. No apparent focal motor deficits. Psych-unable to evaluate Results & Data Results & Data ([facility]) Vital Signs (Past 12 Hours) Vital Signs Temp Pulse Pulse Resp BP Pulse Ox O2 Del Method 05/04/22 11:16 Room Air 05/04/22 10:56 90 05/04/22 10:00 39.5 C H 05/04/22 03:46 36.8 C 75 20 103/62 99 Room Air Laboratory Results 05/04/22 10:00 05/04/22 07:27 PG Care Time/CCT Total # of Minutes Spent Total Time Spent with Patient: Total time spent is greater than 50% in coordination of care (as documented) at patient's floor/unit and/or counseling patient: Coding Level of Care Code 43579 Subseq Hosp Care Lvl 3 Diagnoses Abnormal CXR R93.89 Hematemesis K92.0 Aspiration pneumonia J69.0 Aspiration pneumonia type: unspecified Laterality: bilateral Lung location: unspecified part of lung Seizure R56.9 Cerebral palsy G80.9 (1) Aspiration pneumonia Aspiration pneumonia type: unspecified Laterality: bilateral Lung location: unspecified part of lung Qualified Code(s): J69.0 - Pneumonitis due to inhalation of food and vomit
[2022-05-04] MEDS: ONDANSETRON INJ 2 MG/ML 2 ML VIAL IV PRN (15:45)
[2022-05-05] MEDS: PIPERACILLIN/TAZOBACTAM 3.375 GM in DEXTROSE 5% 100 ML IV SCH ×4 (01:47→19:32)
[2022-05-05 06:25] LABS: Basophils # (auto) 0.03 K/uL (0-0.2); Basophils % (auto) 0.3 %; Eosinophils # (auto) 0.48 K/uL (0-0.50); Eosinophils % (auto) 5.1 %; Hematocrit (blood only) 36.9 % (40.1-51.0); Hemoglobin 12.5 g/dl (14.0-18.0); Immature Granulocytes % (auto) 1.1 %; Lymphocytes # (auto) 1.31 K/uL (1.2-3.4); Mean Corpuscular Hemoglobin 29.7 pg (25.0-34.0); Mean Corpuscular Hgb Conc 33.9 g/dL (32.0-36.0); Mean Corpuscular Volume 87.6 fL (80.0-100.0); Mean Platelet Volume 10.9 fL (9.4-12.4); Monocytes # (auto) 0.65 K/uL (0.24-0.82); Monocytes % (auto) 6.9 %; Neutrophils # (auto) 6.79 K/uL (1.4-6.5); Neutrophils % (auto) 72.6 %; Platelet Count 148 K/uL (130-400); RDW Coefficient of Variation 14.6 % (11.5-14.5); Red Blood Count 4.21 M/uL (4.63-6.08); White Blood Count 9.36 K/ul (4.8-10.8)
[2022-05-05 06:44] LABS: BUN Creatinine Ratio 10.8 (10-20); Calcium 8.2 mg/dl (8.5-10.1); Creatinine Clr Calc Pharmacy 100.3 ml/min; Est GFR (African American) 122.6 ml/min; Est GFR (Non-African American) 105.7 ml/min; Potassium 2.9 mmol/L (3.5-5.1)
[2022-05-05] MEDS: VALPROATE SOD IV SCH ×3 (07:23→12:26)
[2022-05-05] MEDS: DEXTROSE 5% IV SCH ×3 (07:23→12:26)
[2022-05-05] MEDS: PANTOprazole 40 MG TAB PO SCH (08:45)
[2022-05-05] MEDS: LORazepam 0.5 MG in SYRINGE 0.25 ML IV SCH (09:22)
[2022-05-05] MEDS: ENOXAPARIN INJ 40 MG/0.4 ML SYR SQ SCH (09:25)
[2022-05-05] MEDS ORDERED: AZITHROMYCIN 500 MG in DEXTROSE 5% 250 ML IV SCH (10:00)
[2022-05-05] MEDS: levETIRAcetam 750 MG in 0.9 % SODIUM CHLORIDE 100 ML IV SCH (10:07)
--- NOTE | 2022-05-05 10:11 | XRay Report ---
XR chest 1V portable CLINICAL HISTORY: suspected fluid overload, pulmonary edema TECHNIQUE: Single frontal radiograph of the chest was obtained. Comparison: Comparison is made to chest radiograph 05/04/2022 FINDINGS: No lines and tubes are seen. The cardiomediastinal silhouette is normal. There is prominence and ceph alization of the vasculature with Jovany B lines seen. Bilateral lower lung airspace opacities are im proved from prior exam. No evidence of pleural effusion or pneumothorax. Partial visualization of a h iatal hernia is unchanged. IMPRESSION: Pulmonary edema is again seen. Improving bilateral lower lung airspace opacities may represent improv ing alveolar edema. ACT 112: Negative or not required by law. Electronically signed by: Dylan Figueredo M.D. 05/05/2022 10:09 AM
[2022-05-05] MEDS: POTASSIUM CHLORIDE / WTR 10 MEQ/100 ML PLCT IV SCH ×4 (11:12→15:13)
[2022-05-05] MEDS ORDERED: FUROSEMIDE 40 MG/4 ML VIAL IV SCH (12:38)
[2022-05-05] MEDS ORDERED: FUROSEMIDE 40 MG/4 ML VIAL IV ONE (12:38)
--- NOTE | 2022-05-05 13:32 | Fluoroscopy Report ---
VIDEO SWALLOW STUDY CLINICAL HISTORY: Aspiration. COMPARISON STUDY: No priors. Fluoroscopy time: 2.3 minutes. FINDINGS: Fluoroscopic guidance was provided to the department of speech pathology performing a video swallow study. The patient consumed barium impregnated cracker with paste, pudding, thick liquids, a nd thin barium while the swallowing mechanism was observed real-time. No penetration or aspiration wa s seen within the sample textures. IMPRESSION: 1. No penetration or aspiration was identified. 2. See dedicated speech pathology report for detailed findings and recommendations. Dictated: 05/05/2022 12:44 PM Transcribed: 05/05/2022 1:30 PM Evita [id number] [email or web address] Electronically signed by: Vaughn Santana M.D. 05/05/2022 1:31 PM
--- NOTE | 2022-05-05 15:21 | Hospitalist Progress Note ---
Date of Service May 05, 2022 Assessment & Plan (1) Abnormal CXR: Plan: Diffuse bilateral infiltrates appear to be pulmonary edema from fluid overload. IV fluids have been discontinued. Good diuresis with IV Lasix which we will continue. Chest x-ray today, May 05, looks better. Continue Zosyn and azithromycin for now, day 4 (2) Hematemesis: Plan: The patient had unremarkable EGD on April 26. No overt hematemesis this admission. GI consultation appreciated. Continue Protonix. (3) Aspiration pneumonia: Plan: Suspected. He remains on intravenous Zosyn and azithromycin. Serial chest x- rays until clear (4) Seizure: Plan: Seizure disorder is chronic. Continue current medical management. IV medications have been switched back to p.o. route (5) Cerebral palsy: Plan: Supportive care Plan Eventual discharge back to long term. Hopefully yet this week Admission and Anticipated Discharge Date Admission Date: May 02, 2022 Subjective Alert and appears to be at baseline. Speech therapy has completed their evaluation and he is not aspirating. IV medications switched back to oral medications. OT and PT have been ordered. He should be able to go back to the long term yet this week. Hypokalemia will be addressed with intravenous replacement. He remains on Zosyn and azithromycin, day 4. Portable chest x-ray done today looks better Review of Systems Review of Systems: He is unable to participate in review of systems Physical Exam Physical Exam: General-alert. Baseline severe cognitive dysfunction HEENT-head atraumatic and normocephalic, pupils equal and reactive to light, extraocular muscles intact Neck-no lymphadenopathy or thyromegaly, trachea midline Chest-diminished breath sounds bilaterally Cardiac-regular rate and rhythm, normal S1 and S2 Abdomen-normal bowel sounds, nontender, no hepatosplenomegaly Extremities-no cyanosis, clubbing, or edema Neuro-cranial nerves II through XII intact, motor and sensory function within normal limits, strength symmetrical , no focal deficits Psych-Baseline severe cognitive disorder . Nonverbal Results & Data Results & Data ([facility]) Vital Signs (Past 12 Hours) Vital Signs Temp Pulse Pulse Resp BP Pulse Ox O2 Del Method 05/05/22 11:54 84 05/05/22 07:27 37.2 C 80 20 111/71 93 Room Air Laboratory Results 05/05/22 05:53 05/05/22 05:53 PG Care Time/CCT Total # of Minutes Spent Total Time Spent with Patient: Total time spent is greater than 50% in coordination of care (as documented) at patient's floor/unit and/or counseling patient: Coding Level of Care Code 40550 Subseq Hosp Care Lvl 3 Diagnoses Abnormal CXR R93.89 Hematemesis K92.0 Aspiration pneumonia J69.0 Aspiration pneumonia type: unspecified Laterality: bilateral Lung location: unspecified part of lung Seizure R56.9 Cerebral palsy G80.9 (1) Aspiration pneumonia Aspiration pneumonia type: unspecified Laterality: bilateral Lung location: unspecified part of lung Qualified Code(s): J69.0 - Pneumonitis due to inhalation of food and vomit
[2022-05-05] MEDS: levETIRAcetam 500 MG TAB PO SCH (19:32)
[2022-05-05] MEDS: DIVALPROEX DELAY RELEASE 250 MG TABEC PO SCH (19:33)
[2022-05-05] MEDS: LORazepam 0.5 MG TAB PO PRN (19:33)
[2022-05-06] MEDS: PIPERACILLIN/TAZOBACTAM 3.375 GM in DEXTROSE 5% 100 ML IV SCH ×4 (01:33→21:45)
[2022-05-06 07:19] LABS: Basophils # (auto) 0.04 K/uL (0-0.2); Basophils % (auto) 0.5 %; Eosinophils # (auto) 0.66 K/uL (0-0.50); Eosinophils % (auto) 7.8 %; Hematocrit (blood only) 37.9 % (40.1-51.0); Hemoglobin 12.6 g/dl (14.0-18.0); Immature Granulocytes # (auto) 0.16 K/uL (0.00-0.02); Immature Granulocytes % (auto) 1.9 %; Lymphocytes # (auto) 1.56 K/uL (1.2-3.4); Lymphocytes % (auto) 18.3 %; Mean Corpuscular Hemoglobin 29.3 pg (25.0-34.0); Mean Corpuscular Hgb Conc 33.2 g/dL (32.0-36.0); Mean Corpuscular Volume 88.1 fL (80.0-100.0); Monocytes # (auto) 0.74 K/uL (0.24-0.82); Monocytes % (auto) 8.7 %; Neutrophils # (auto) 5.35 K/uL (1.4-6.5); Neutrophils % (auto) 62.8 %; Platelet Count 163 K/uL (130-400); RDW Coefficient of Variation 14.6 % (11.5-14.5); RDW Standard Deviation 46.5 fL (36.4-46.3); White Blood Count 8.51 K/ul (4.8-10.8)
[2022-05-06 07:39] LABS: BUN Creatinine Ratio 12.1 (10-20); Calcium 8.5 mg/dl (8.5-10.1); Creatinine Clr Calc Pharmacy 111.1 ml/min; Est GFR (African American) 128.4 ml/min; Est GFR (Non-African American) 110.8 ml/min
[2022-05-06] MEDS: levETIRAcetam 500 MG TAB PO SCH ×2 (08:27→21:51)
[2022-05-06] MEDS: DIVALPROEX DELAY RELEASE 250 MG TABEC PO SCH ×2 (08:27→21:50)
[2022-05-06] MEDS: ENOXAPARIN INJ 40 MG/0.4 ML SYR SQ SCH (08:27)
[2022-05-06] MEDS: PANTOprazole 40 MG TAB PO SCH (08:27)
[2022-05-06] MEDS ORDERED: POTASSIUM CHLORIDE CRTAB 20 MEQ TABCR PO STA (12:39)
[2022-05-06] MEDS: POTASSIUM CHLORIDE / WTR 10 MEQ/100 ML PLCT IV SCH ×2 (13:09→14:11)
--- NOTE | 2022-05-06 18:58 | Hospitalist Progress Note ---
Date of Service May 06, 2022 Assessment & Plan (1) Abnormal CXR: Plan: Diffuse bilateral infiltrates appear to be pulmonary edema from fluid overload. IV fluids have been discontinued. Good diuresis with IV Lasix which we will continue. Chest x-ray today, May 05, looks better. Continue Zosyn and azithromycin for now, day 5 (2) Abnormal blood electrolyte level: Plan: K+ 3.0 * K-Fernando 10mEq X 2 * K-Chl 40mEq po x 1 Check repeat labs in the morning (3) Hematemesis: Plan: The patient had unremarkable EGD on April 26. No overt hematemesis this admission. GI consultation appreciated. Continue Protonix. (4) Aspiration pneumonia: Plan: Suspected. He remains on intravenous Zosyn and azithromycin. Can deescalate tomorrow Unable to obtain sputum for C&S (5) Seizure: Plan: Seizure disorder is chronic. Continue current medical management. IV medications have been switched back to p.o. route and patient is toilerating well (6) Cerebral palsy: Plan: Supportive care Plan Eventual discharge back to senior living. Hopefully yet this week Admission and Anticipated Discharge Date Admission Date: May 02, 2022 Subjective Attending: Dr. Musa Patient seen and examined in room 261. He is nonverbal. Patient's caregiver is present. He states that he appears better but is not at baseline. Patient comes from a senior living and anticipates discharge back there when medically stable. Review of Systems Review of Systems: Unobtainable due to cognitive status Physical Exam Physical Exam: Insert VITAL SIGNS: Within normal limits. GENERAL: No acute distress, non-toxic appearance. HEAD: Normal with no signs of head trauma. EYES: PERRL, conjunctiva normal, no discharge. NOSE: Normal. THROAT: Oropharynx is normal. NECK: Normal range of motion, no tenderness, supple, no lymphadenopathy, No adenopathy, no JVD. CHEST: Patient does have some bilateral rales as well as some rhonchi. CARDIAC: Regular rate and rhythm. S1 and S2, without murmurs, gallops, or rubs. VASCULAR: No Edema. Peripheral pulses normal and equal in all extremities. ABDOMEN: Normal and soft with no tenderness, no masses or pulsatile masses. GASTROINTESTINAL: Bowel sounds normal MUSCULOSKELETAL: Some contracture of upper extremities. Patient is from senior living. Nonverbal. Unsure of baseline. Extremities without clubbing, cyanosis or edema. SKIN: Normal appearance with no rashes or lesions. Results & Data Results & Data ([facility]) Vital Signs (Past 12 Hours) Vital Signs Temp Pulse Pulse Resp BP Pulse Ox O2 Del Method 05/06/22 17:03 37.6 C H 96 H 19 133/67 99 Room Air 05/06/22 15:50 117 H 05/06/22 08:24 36.7 C 86 17 119/69 96 Room Air 05/06/22 07:28 75 Critical Care Results & Data Vital Signs (Past 12 Hours) Vital Signs Temp Pulse Pulse Resp BP Pulse Ox O2 Del Method 05/06/22 17:03 37.6 C H 96 H 19 133/67 99 Room Air 05/06/22 15:50 117 H 05/06/22 08:24 36.7 C 86 17 119/69 96 Room Air 05/06/22 07:28 75 Lab & Micro Results (Past 24 Hours) RBC 4.30 M/uL (4.63-6.08) L 05/06/22 WBC 8.51 K/ul (4.8-10.8) 05/06/22 Hgb 12.6 g/dl (14.0-18.0) L 05/06/22 Hct 37.9 % (40.1-51.0) L 05/06/22 MCV 88.1 fL (80.0-100.0) 05/06/22 MCH 29.3 pg (25.0-34.0) 05/06/22 MCHC 33.2 g/dL (32.0-36.0) 05/06/22 RDW Standard Deviation 46.5 fL (36.4-46.3) H 05/06/22 RDW Coefficient of Variation 14.6 % (11.5-14.5) H 05/06/22 Plt Count 163 K/uL (130-400) 05/06/22 MPV 11.0 fL (9.4-12.4) 05/06/22 Neutrophils (%) (Auto) 62.8 % 05/06/22 Lymphocytes (%) (Auto) 18.3 % 05/06/22 Monocytes # (Auto) 0.74 K/uL (0.24-0.82) 05/06/22 Eosinophils # (Auto) 0.66 K/uL (0-0.50) H 05/06/22 Immature Granulocyte % (Auto) 1.9 % 05/06/22 Neutrophils # (Auto) 5.35 K/uL (1.4-6.5) 05/06/22 Lymphocytes # (Auto) 1.56 K/uL (1.2-3.4) 05/06/22 Monocytes # (Auto) 0.74 K/uL (0.24-0.82) 05/06/22 Eosinophils # (Auto) 0.66 K/uL (0-0.50) H 05/06/22 Basophils # (Auto) 0.04 K/uL (0-0.2) 05/06/22 Immature Granulocyte # (Auto) 0.16 K/uL (0.00-0.02) H 05/06 Na 139 mmol/L (136-145) 05/06/22 K 3.0 mmol/L (3.5-5.1) L 05/06/22 Cl 106 mmol/L (98-107) 05/06/22 CO2 24 mmol/L (21-32) 05/06/22 Anion Gap 9 (3-11) 05/06/22 BUN 7 mg/dl (6-23) 05/06/22 Creatinine 0.58 mg/dl (0.6-1.4) L 05/06/22 Estimated GFR ( Amer) 128.4 ml/min 05/06/22 Estimated GFR (Non-Af Amer) 110.8 ml/min 05/06/22 BUN/Creatinine Ratio 12.1 (10-20) 05/06/22 Glu 97 mg/dl (70-99(Fasting)) 05/06/22 Ca 8.5 mg/dl (8.5-10.1) 05/06/22 Calcium Level 8.5 mg/dl (8.5-10.1) 05/06/22 06:41 I & O Totals 24 Hours 05/05/22 05/06/22 05/07/22 06:59 06:59 06:59 Intake Total 2430.50 / 2430.50 1426.5 / 1426.5 550 / 550 Output Total 2000 2975 / 2975 400 / 400 Balance 429.50 / 429.50 -1548.5 / -1548.5 150 / 150 Cumulative 05/02/22 08:36 thru 05/06/22 16:06 Intake Total 62818.500 Output Total 5377 Balance 5005.500 RT Ventilator Mngmt (Last Documented) Ventilator Ordered Settings Respiratory Rate 19 05/06/22 17:03 Ventilator - PT Measurements Respiratory Rate 19 PG Care Time/CCT Total # of Minutes Spent Total Time Spent with Patient: Total time spent is greater than 50% in coordination of care (as documented) at patient's floor/unit and/or counseling patient: Coding Level of Care Code 96854 Subseq Hosp Care Lvl 2 Diagnoses Abnormal CXR R93.89 Abnormal blood electrolyte level E87.8 Hematemesis K92.0 Aspiration pneumonia J69.0 Aspiration pneumonia type: unspecified Laterality: bilateral Lung location: unspecified part of lung Seizure R56.9 Cerebral palsy G80.9 (1) Aspiration pneumonia Aspiration pneumonia type: unspecified Laterality: bilateral Lung location: unspecified part of lung Qualified Code(s): J69.0 - Pneumonitis due to inhalation of food and vomit
[2022-05-07] MEDS: PIPERACILLIN/TAZOBACTAM 3.375 GM in DEXTROSE 5% 100 ML IV SCH ×4 (01:14→21:45)
--- NOTE | 2022-05-07 05:17 | Hospitalist Progress Note ---
Date of Service May 07, 2022 Assessment & Plan (1) Abnormal CXR: Plan: Diffuse bilateral infiltrates appear to be pulmonary edema from fluid overload. IV fluids have been discontinued. Good diuresis with IV Lasix which we will continue. Continue Zosyn and azithromycin for now, day 6 Patient had fever again last night of 38.1 C Repeat blood cultures (2) Abnormal blood electrolyte level: Plan: K+ 3.0 yesterday. Now 3.9. Magnesium was 1.8 Check repeat labs in the morning (3) Hematemesis: Plan: The patient had unremarkable EGD on April 26. No overt hematemesis this admission. GI consultation appreciated. Continue Protonix. (4) Aspiration pneumonia: Plan: Suspected. He remains on intravenous Zosyn and azithromycin. Can deescalate tomorrow if no further fever Unable to obtain sputum for C&S (5) Seizure: Plan: Seizure disorder is chronic. Continue current medical management. IV medications have been switched back to p.o. route and patient is toilerating well (6) Cerebral palsy: Plan: Supportive care Plan [facility]ual discharge [facility] to [facility]. They have a policy the patient must be afebrile for 48 hours before returning. Admission and Anticipated Discharge Date Admission Date: May 02, 2022 Subjective Overnight the patient had a T-max of 38.1 and was noticed to have tachycardia. Caregiver from the [facility] is with him 28/03 and notes him to appear to be close to baseline. Does not seem to have acute distress with fever or tachycardia. No desaturation or new sputum production. Continues on Zosyn. CXR, BC X 2, UA ordered. Results are pending. Continues with condom catheter. No other acute issues Patient unable to provide ROS. Review of Systems Review of Systems: Unobtainable due to cognitive status Physical Exam Physical Exam: GENERAL : No acute distress. Patient unable to verbalize. Caregiver present EYES: No icterus, gaze conjugate NOSE: No evidence of epistaxis MOUTH: No lesions or candidiasis NECK: Supple LUNGS: CTA B/L, no wheezes, rales or rhonchi HEART: Regular, rate controlled ABDOMEN: Soft, NT, ND, BS Present EXTREMITIES: No LE edema, pedal pulses intact NEURO: A&OX3 Results & Data Results & Data ([facility]) Vital Signs (Past 12 Hours) Vital Signs Temp Pulse Pulse Resp BP Pulse Ox O2 Del Method 05/07/22 05:10 36.8 C 74 20 106/70 96 Room Air 05/06/22 22:09 120 H 05/07/22 00:24 38.1 C H 113 H 20 130/79 96 Room Air 05/07/22 00:20 37.5 C 05/06/22 19:54 37.0 C 121 H 20 132/84 96 Room Air Critical Care Results & Data Vital Signs (Past 12 Hours) Vital Signs Temp Pulse Pulse Pulse Resp BP Pulse Ox 05/07/22 15:57 36.8 C 95 H 20 139/93 95 05/07/22 12:06 36.9 C 84 94 H 115/69 94 05/07/22 08:00 05/07/22 08:00 37.2 C 99 H 120/75 97 05/07/22 05:10 36.8 C 74 20 106/70 96 O2 Del Method 05/07/22 15:57 05/07/22 12:06 Room Air 05/07/22 08:00 Room Air 05/07/22 08:00 Room Air 05/07/22 05:10 Room Air Lab & Micro Results (Past 24 Hours) No Data to Display Na 138 mmol/L (136-145) 05/08/22 K 3.8 mmol/L (3.5-5.1) 05/08/22 Cl 107 mmol/L (98-107) 05/08/22 CO2 22 mmol/L (21-32) 05/08/22 Anion Gap 9 (3-11) 05/08/22 BUN 7 mg/dl (6-23) 05/08/22 Creatinine 0.57 mg/dl (0.6-1.4) L 05/08/22 Estimated GFR ( Amer) 129.4 ml/min 05/08/22 Estimated GFR (Non-Af Amer) 111.6 ml/min 05/08/22 BUN/Creatinine Ratio 12.3 (10-20) 05/08/22 Glu 98 mg/dl (70-99(Fasting)) 05/08/22 Ca 8.3 mg/dl (8.5-10.1) L 05/08/22 Calcium Level 8.3 mg/dl (8.5-10.1) L 05/08/22 05:55 Microbiology 05/02/22 09:41 Aerobic Blood Culture - Final Blood No growth in Aerobic bottle after 5 days. Anaerobic Blood Culture - Final 05/02/22 09:48 Aerobic Blood Culture - Final Blood No growth in Aerobic bottle after 5 days. Anaerobic Blood Culture - Final Diagnostic Findings (Past 24 Hours) Chest X-Ray 05/07/22 05:09 SINGLE VIEW CHEST CLINICAL HISTORY: Fever. Aspiration. FINDINGS: An AP, portable, upright chest radiograph is compared to study dated 05/05/2022. Correlation is made with chest CT dated 05/02/2022. The examination is degraded by portable technique and patient rotation. Hiatal hernia is noted. The heart is mildly enlarged. There is pulmonary vascular congestion. There is increasing bilateral airspace consolidation throughout both lungs. Small pleural effusions are suggested. No pneumothorax is seen. The skeletal structures are osteopenic. The bony thorax is grossly intact. IMPRESSION: 1. Mild cardiomegaly with pulmonary vascular congestion. 2. There is increasing bilateral airspace consolidation. This could represent worsening pneumonia/aspiration pneumonitis and/or developing pulmonary edema. Clinical correlation will be essential and radiographic follow-up to resolution is recommended. ACT 112: Negative or not required by law. Electronically signed by: Vaughn Santana M.D. 05/07/2022 8:12 AM I & O Totals 24 Hours 05/06/22 05/07/22 05/08/22 06:59 06:59 06:59 Intake Total 1426.5 / 1426.5 855 / 855 430 / 430 Output Total 2975 / 2975 1200 / 1200 Balance -1548.5 / -1548.5 -345 / -345 430 / 430 Cumulative 05/02/22 08:36 thru 05/07/22 15:01 Intake Total 15361.500 Output Total 6177 Balance 4940.500 RT Ventilator Mngmt (Last Documented) Ventilator Ordered Settings Respiratory Rate 20 05/07/22 15:57 Ventilator - PT Measurements Respiratory Rate 20 PG Care Time/CCT Total # of Minutes Spent Total Time Spent with Patient: Total time spent is greater than 50% in coordination of care (as documented) at patient's floor/unit and/or counseling patient: Coding Level of Care Code 35110 Subseq Hosp Care Lvl 2 Diagnoses Abnormal CXR R93.89 Abnormal blood electrolyte level E87.8 Hematemesis K92.0 Aspiration pneumonia J69.0 Aspiration pneumonia type: unspecified Laterality: bilateral Lung location: unspecified part of lung Seizure R56.9 Cerebral palsy G80.9 (1) Aspiration pneumonia Aspiration pneumonia type: unspecified Laterality: bilateral Lung location: unspecified part of lung Qualified Code(s): J69.0 - Pneumonitis due to inhalation of food and vomit
[2022-05-07 07:03] LABS: BUN Creatinine Ratio 8.2 (10-20); Calcium 8.6 mg/dl (8.5-10.1); Creatinine Clr Calc Pharmacy 107.3 ml/min; Est GFR (African American) 125.8 ml/min; Est GFR (Non-African American) 108.5 ml/min; Magnesium 1.8 mg/dl (1.7-2.4); Potassium 3.9 mmol/L (3.5-5.1)
[2022-05-07 07:36] LABS: Appearance Urine Clear (Clear); Bilirubin Urine Negative (Negative); Blood Urine Negative (Negative); Color Urine Yellow; Glucose Urine UA Negative (Negative); Ketones Urine Negative (Negative); Leukocyte Esterase Urine Negative (Negative); Nitrite Urine Negative (Negative); Protein Urine Negative (Negative); Specific Gravity Urine 1.018 (1.000-1.030); Urobilinogen Urine Negative (Negative); pH Urine 7.5 (4.5-7.5)
--- NOTE | 2022-05-07 08:13 | XRay Report ---
SINGLE VIEW CHEST CLINICAL HISTORY: Fever. Aspiration. FINDINGS: An AP, portable, upright chest radiograph is compared to study dated 05/05/2022. Correlation is made with chest CT dated 05/02/2022. The examination is degraded by portable technique and patient rotation. Hiatal hernia is noted. The heart is mildly enlarged. There is pulmonary vascular congesti on. There is increasing bilateral airspace consolidation throughout both lungs. Small pleural effusio ns are suggested. No pneumothorax is seen. The skeletal structures are osteopenic. The bony thorax is grossly intact. IMPRESSION: 1. Mild cardiomegaly with pulmonary vascular congestion. 2. There is increasing bilateral airspace consolidation. This could represent worsening pneumonia/asp iration pneumonitis and/or developing pulmonary edema. Clinical correlation will be essential and rad iographic follow-up to resolution is recommended. ACT 112: Negative or not required by law. Electronically signed by: Vaughn Santana M.D. 05/07/2022 8:12 AM
[2022-05-07] MEDS: ENOXAPARIN INJ 40 MG/0.4 ML SYR SQ SCH (08:17)
[2022-05-07] MEDS: levETIRAcetam 500 MG TAB PO SCH ×2 (08:17→21:45)
[2022-05-07] MEDS: DIVALPROEX DELAY RELEASE 250 MG TABEC PO SCH ×2 (08:17→21:46)
[2022-05-07] MEDS: MAGNESIUM SULFATE / D5W 1 GM/100 ML BAG IV SCH ×2 (09:38→11:49)
[2022-05-07] MEDS: PANTOprazole 40 MG TAB PO SCH (09:38)
[2022-05-08] MEDS: PIPERACILLIN/TAZOBACTAM 3.375 GM in DEXTROSE 5% 100 ML IV SCH ×3 (05:09→22:06)
[2022-05-08 06:46] LABS: BUN Creatinine Ratio 12.3 (10-20); Calcium 8.3 mg/dl (8.5-10.1); Creatinine Clr Calc Pharmacy 115.2 ml/min; Est GFR (African American) 129.4 ml/min; Est GFR (Non-African American) 111.6 ml/min; Potassium 3.8 mmol/L (3.5-5.1)
[2022-05-08] MEDS: PANTOprazole 40 MG TAB PO SCH (09:07)
[2022-05-08] MEDS: DIVALPROEX DELAY RELEASE 250 MG TABEC PO SCH ×2 (09:07→20:13)
[2022-05-08] MEDS: levETIRAcetam 500 MG TAB PO SCH ×2 (09:08→20:13)
[2022-05-08] MEDS: ENOXAPARIN INJ 40 MG/0.4 ML SYR SQ SCH (09:08)
[2022-05-08] MEDS: LORazepam 0.5 MG TAB PO PRN (09:13)
--- NOTE | 2022-05-08 11:32 | Hospitalist Progress Note ---
Date of Service May 08, 2022 Assessment & Plan (1) Abnormal CXR: Plan: Diffuse bilateral infiltrates appear to be pulmonary edema from fluid overload. IV fluids have been discontinued. Good diuresis with IV Lasix which we will continue. Patient continues with positive fluid balance of 5.4 L. Continue Zosyn and azithromycin for now, day 7 Patient now afebrile Repeat blood cultures are negative (2) Abnormal blood electrolyte level: Plan: K+ 3.8 Magnesium 1.8 Check repeat labs in the morning (3) Hematemesis: Plan: The patient had unremarkable EGD on April 26. No overt hematemesis this admission. GI consultation appreciated. Continue Protonix. (4) Aspiration pneumonia: Plan: Suspected. He remains on intravenous Zosyn and azithromycin. Was kept on this yesterday because patient developed fever. Repeat blood cultures were drawn and are negative so far for growth today. Reevaluate tomorrow. Unable to obtain sputum for C&S (5) Seizure: Plan: Seizure disorder is chronic. [facility] aids are present 28/03 to monitor for seizure activity Continue current medical management. IV medications have been switched back to p.o. route and patient is tolerating well (6) Cerebral palsy: Plan: Supportive care Plan [facility] They have a policy the patient must be afebrile for 48 hours before returning. Admission and Anticipated Discharge Date Admission Date: May 02, 2022 Subjective Attending: Dr. Musa Patient seen and examined in room 261. The patient is a Joellen is there today. No acute issues. Patient did not sleep well last night but 8 is unaware of any acute issues causing his restlessness. Today he is in good spirits. Patient is nonverbal due to his intellectual developmental delay. No acute issues. Patient is afebrile for greater than 24 hours now. Review of Systems Review of Systems: Unobtainable due to cognitive status Physical Exam Physical Exam: GENERAL : No acute distress EYES: No icterus, gaze conjugate NOSE: No evidence of epistaxis MOUTH: No lesions or candidiasis NECK: Supple LUNGS: Bibasilar fine crackles. Otherwise clear to auscultation. No rhonchi or bronchospasm appreciated. HEART: Regular, rate controlled ABDOMEN: Soft, NT, ND, BS Present EXTREMITIES: No LE edema, pedal pulses intact NEURO: A&OX3 Results & Data Results & Data ([facility]) Vital Signs (Past 12 Hours) Vital Signs Temp Pulse Pulse Resp BP Pulse Ox O2 Del Method 05/08/22 08:08 37.2 C 99 H 18 115/68 100 Room Air 05/08/22 07:26 102 H Critical Care Results & Data Vital Signs (Past 12 Hours) Vital Signs Temp Pulse Pulse Resp BP Pulse Ox O2 Del Method 05/08/22 08:08 37.2 C 99 H 18 115/68 100 Room Air 05/08/22 07:26 102 H Lab & Micro Results (Past 24 Hours) No Data to Display Na 138 mmol/L (136-145) 05/08/22 K 3.8 mmol/L (3.5-5.1) 05/08/22 Cl 107 mmol/L (98-107) 05/08/22 CO2 22 mmol/L (21-32) 05/08/22 Anion Gap 9 (3-11) 05/08/22 BUN 7 mg/dl (6-23) 05/08/22 Creatinine 0.57 mg/dl (0.6-1.4) L 05/08/22 Estimated GFR ( Amer) 129.4 ml/min 05/08/22 Estimated GFR (Non-Af Amer) 111.6 ml/min 05/08/22 BUN/Creatinine Ratio 12.3 (10-20) 05/08/22 Glu 98 mg/dl (70-99(Fasting)) 05/08/22 Ca 8.3 mg/dl (8.5-10.1) L 05/08/22 Calcium Level 8.3 mg/dl (8.5-10.1) L 05/08/22 05:55 Microbiology 05/07/22 06:08 Aerobic Blood Culture - Preliminary Blood No growth in Aerobic bottle after 24 hours. Anaerobic Blood Culture - Preliminary No growth in Anaerobic bottle after 24 hours. 05/07/22 06:11 Aerobic Blood Culture - Preliminary Blood No growth in Aerobic bottle after 24 hours. Anaerobic Blood Culture - Preliminary No growth in Anaerobic bottle after 24 hours. 05/02/22 09:41 Aerobic Blood Culture - Final Blood No growth in Aerobic bottle after 5 days. Anaerobic Blood Culture - Final 05/02/22 09:48 Aerobic Blood Culture - Final Blood No growth in Aerobic bottle after 5 days. Anaerobic Blood Culture - Final I & O Totals 24 Hours 05/07/22 05/08/22 05/09/22 06:59 06:59 06:59 Intake Total 855 / 855 785 / 785 115 / 115 Output Total 1200 / 1200 Balance -345 / -345 785 / 785 115 / 115 Cumulative 05/02/22 08:36 thru 05/08/22 09:11 Intake Total 96259.500 Output Total 6177 Balance 5410.500 RT Ventilator Mngmt (Last Documented) Ventilator Ordered Settings Respiratory Rate 18 05/08/22 08:08 Ventilator - PT Measurements Respiratory Rate 18 PG Care Time/CCT Total # of Minutes Spent Total Time Spent with Patient: Total time spent is greater than 50% in coordination of care (as documented) at patient's floor/unit and/or counseling patient: Coding Level of Care Code 21470 Subseq Hosp Care Lvl 2 Diagnoses Abnormal CXR R93.89 Abnormal blood electrolyte level E87.8 Hematemesis K92.0 Aspiration pneumonia J69.0 Aspiration pneumonia type: unspecified Laterality: bilateral Lung location: unspecified part of lung Seizure R56.9 Cerebral palsy G80.9 (1) Aspiration pneumonia Aspiration pneumonia type: unspecified Laterality: bilateral Lung location: unspecified part of lung Qualified Code(s): J69.0 - Pneumonitis due to inhalation of food and vomit
[2022-05-09] MEDS: PIPERACILLIN/TAZOBACTAM 3.375 GM in DEXTROSE 5% 100 ML IV SCH (06:01)
[2022-05-09] MEDS: PANTOprazole 40 MG TAB PO SCH (07:58)
[2022-05-09] MEDS: ENOXAPARIN INJ 40 MG/0.4 ML SYR SQ SCH (07:58)
[2022-05-09] MEDS: DIVALPROEX DELAY RELEASE 250 MG TABEC PO SCH ×2 (07:58→21:15)
[2022-05-09] MEDS: levETIRAcetam 500 MG TAB PO SCH ×2 (07:58→21:15)
[2022-05-09 08:31] LABS: BUN Creatinine Ratio 13.3 (10-20); Calcium 8.4 mg/dl (8.5-10.1); Creatinine Clr Calc Pharmacy 108.7 ml/min; Est GFR (African American) 126.7 ml/min; Est GFR (Non-African American) 109.3 ml/min
[2022-05-09 08:47] LABS: Basophils # (auto) 0.04 K/uL (0-0.2); Basophils % (auto) 0.5 %; Eosinophils # (auto) 0.38 K/uL (0-0.50); Eosinophils % (auto) 4.8 %; Hematocrit (blood only) 34.5 % (40.1-51.0); Hemoglobin 11.6 g/dl (14.0-18.0); Immature Granulocytes # (auto) 0.12 K/uL (0.00-0.02); Immature Granulocytes % (auto) 1.5 %; Lymphocytes # (auto) 1.58 K/uL (1.2-3.4); Lymphocytes % (auto) 19.8 %; Mean Corpuscular Hemoglobin 30.1 pg (25.0-34.0); Mean Corpuscular Hgb Conc 33.6 g/dL (32.0-36.0); Mean Corpuscular Volume 89.4 fL (80.0-100.0); Mean Platelet Volume 10.9 fL (9.4-12.4); Monocytes % (auto) 11.3 %; Neutrophils # (auto) 4.98 K/uL (1.4-6.5); Neutrophils % (auto) 62.1 %; Platelet Count 281 K/uL (130-400); RDW Coefficient of Variation 15.3 % (11.5-14.5); RDW Standard Deviation 50.1 fL (36.4-46.3); Red Blood Count 3.86 M/uL (4.63-6.08)
[2022-05-09] MEDS: ACETAMINOPHEN 325 MG TAB PO PRN ×2 (08:58→23:05)
[2022-05-09 10:36] LABS: Influenza A virus by PCR Negative (Neg); Influenza B virus by PCR Negative (Neg); RSV by PCR Negative (Neg); SARS CoV2 RNA(COVID-19) InHosp NEGATIVE (Negative)
[2022-05-09] MEDS ORDERED: AZITHROMYCIN 500 MG in DEXTROSE 5% 250 ML IV ONE (16:00)
[2022-05-09 18:42] LABS: Appearance Urine Clear (Clear); Bilirubin Urine Negative (Negative); Blood Urine Negative (Negative); Color Urine Yellow; Glucose Urine UA Negative (Negative); Ketones Urine Negative (Negative); Leukocyte Esterase Urine Negative (Negative); Nitrite Urine Negative (Negative); Protein Urine Negative (Negative); Specific Gravity Urine 1.019 (1.000-1.030); Urobilinogen Urine Negative (Negative); pH Urine 5.5 (4.5-7.5)
--- NOTE | 2022-05-09 18:48 | Hospitalist Progress Note ---
Date of Service May 09, 2022 Assessment & Plan (1) Abnormal CXR: Plan: -Hard to gauge how much was pulmonary edema and how much was infectionbut he is breathing well on room air. The main question is whether or not he is able to be off of antibiotics, given that he is still having low-grade temperatures. Discussed with catering sales manager of detention, I do suspect he probably has a degree of chronic aspiration, and the low-grade temperatures may relate to that. That said, I believe on chart review he was only treated with azithromycin for a day, and given that the x-ray shows bilateral findings, as does his lung exam, cannot entirely rule out atypicalstherefore can retreat with a true course of azithromycin. outpatient case manager, and myself, are both comfortable with him returning to the detention. HORSE RACER who is responsible for his care there is not. That said, it sounds like a chest x-ray could be very reassuring for her. PA and lateral obtainedlargely to show clearing, but also to work-up any oddities with his persistent recurring low-grade temp. (Overall labs and further work-up today including flu RSV and COVID swabs were all very reassuring). (2) Abnormal blood electrolyte level: (3) Hematemesis: Plan: The patient had unremarkable EGD on April 26, except for removing an impacted grape. No overt hematemesis this admission. GI consultation appreciated. Continue Protonix. (4) Aspiration pneumonia: Plan: Suspected. See above under 1 (5) Seizure: Plan: Continue current meds (6) Cerebral palsy: Plan: Supportive care Plan [facility] to [facility]. Admission and Anticipated Discharge Date Admission Date: May 02, 2022 Subjective No HPI review of systems obtainable from patient. Caregiver/catering sales manager of detention present. Feels that other than being a little more sleepy and not eating and drinking quite as well, he more or less appears at his baseline. She notes she would be comfortable with him returning to the detention, but the detention HORSE RACER does not want him back there with any type of pneumonia. They discussed the situation, and HORSE RACER would permit him back if chest x-ray showed improvement. He did have a low-grade temp again in the last 24 hours. Review of Systems Review of Systems: Unobtainable due to cognitive status Physical Exam Physical Exam: In general he appears in no distress. HEENT normocephalic atraumatic mucous membranes moist. Lungs show faint scattered rales left worse than right but overall good air entry no rhonchi no wheezes no accessory muscle use good respiratory effort spontaneously. Skin shows no rashes no pallor or icterus. Results & Data Results & Data ([facility]) Vital Signs (Past 12 Hours) Vital Signs Temp Pulse Pulse Resp BP Pulse Ox O2 Del Method 05/09/22 16:14 99 H 05/09/22 15:47 98.8 F 85 18 149/75 H 95 Room Air 05/09/22 15:39 98.8 F 85 18 149/75 H 95 Room Air 05/09/22 10:40 Room Air 05/09/22 08:00 100.4 F H 93 H 19 98/60 L 92 Room Air 05/09/22 07:10 84 PG Care Time/CCT Total # of Minutes Spent Total Time Spent with Patient: Total time spent is greater than 50% in coordination of care (as documented) at patient's floor/unit and/or counseling patient: Coding Level of Care Code 50075 Subseq Hosp Care Lvl 3 Diagnoses Abnormal CXR R93.89 Abnormal blood electrolyte level E87.8 Hematemesis K92.0 Aspiration pneumonia J69.0 Aspiration pneumonia type: unspecified Laterality: bilateral Lung location: unspecified part of lung Seizure R56.9 Cerebral palsy G80.9 (1) Aspiration pneumonia Aspiration pneumonia type: unspecified Laterality: bilateral Lung location: unspecified part of lung Qualified Code(s): J69.0 - Pneumonitis due to inhalation of food and vomit
--- NOTE | 2022-05-09 20:49 | XRay Report ---
XR chest 1V portable CLINICAL HISTORY: prior abnormal CXR TECHNIQUE: Single frontal radiograph of the chest was obtained. Comparison: Comparison is made to chest radiograph 05/07/2022 FINDINGS: No lines and tubes are seen. Exam is limited by patient positioning. The cardiomediastinal silhouette is stable. Prominence and cephalization of the vasculature is seen. Airspace opacity is seen in the right upper lobe. IMPRESSION: 1. Cardiomegaly and mild pulmonary edema. 2. Right upper lung airspace opacity compatible with aspiration, atelectasis, and/or pneumonia. Comp ared to the prior exam, the lower lungs are relatively clear although evaluation is limited by patien t positioning. ACT 112: Negative or not required by law. Electronically signed by: Dylan Figueredo M.D. 05/09/2022 8:48 PM
--- NOTE | 2022-05-10 07:18 | Hospitalist Progress Note ---
Date of Service May 10, 2022 Assessment & Plan (1) Abnormal CXR: Plan: -Hard to gauge how much was pulmonary edema and how much was infectionbut he is breathing well on room air. The main question is whether or not he is able to be off of antibiotics, given that he is still having low-grade temperatures. Discussed with senior it project manager of [facility], I do suspect he probably has a degree of chronic aspiration, and the low-grade temperatures may relate to that. That said, I believe on chart review he was only treated with azithromycin for a day, and given that the x-ray shows bilateral findings, as does his lung exam, cannot entirely rule out atypicalstherefore can retreat with a true course of azithromycin. territory sales manager, and myself, are both comfortable with him returning to the [facility]. AIRCRAFT ARMAMENT MECHANIC who is responsible for his care there is not. That said, it sounds like a chest x-ray could be very reassuring for her. PA and lateral obtainedlargely to show clearing, but also to work-up any oddities with his persistent recurring low-grade temp. (Overall labs and further work-up today including flu RSV and COVID swabs were all very reassuring). (2) Abnormal blood electrolyte level: (3) Hematemesis: Plan: The patient had unremarkable EGD on April 26, except for removing an impacted grape. No overt hematemesis this admission. GI consultation appreciated. Continue Protonix. (4) Aspiration pneumonia: Plan: Suspected. See above under 1 (5) Seizure: Plan: Continue current meds (6) Cerebral palsy: Plan: Supportive care Plan Eventual discharge back to [facility]. Admission and Anticipated Discharge Date Admission Date: May 02, 2022 Results & Data Results & Data ([facility]) Vital Signs (Past 12 Hours) Vital Signs Temp Pulse Pulse Pulse Resp BP Pulse Ox 05/09/22 21:59 128 H 05/10/22 01:48 37.8 C H 05/09/22 20:00 05/10/22 00:54 38.9 C H 111 H 05/09/22 23:03 39.5 C H 130 H 16 111/68 95 05/09/22 20:13 37.5 C 84 20 137/65 95 O2 Del Method 05/09/22 21:59 05/10/22 01:48 05/09/22 20:00 Room Air 05/10/22 00:54 05/09/22 23:03 Room Air 05/09/22 20:13 Room Air PG Care Time/CCT Total # of Minutes Spent Total Time Spent with Patient: Total time spent is greater than 50% in coordination of care (as documented) at patient's floor/unit and/or counseling patient: Coding Diagnoses Abnormal CXR R93.89 Abnormal blood electrolyte level E87.8 Hematemesis K92.0 Aspiration pneumonia J69.0 Aspiration pneumonia type: unspecified Laterality: bilateral Lung location: unspecified part of lung Seizure R56.9 Cerebral palsy G80.9 (1) Aspiration pneumonia Aspiration pneumonia type: unspecified Laterality: bilateral Lung location: unspecified part of lung Qualified Code(s): J69.0 - Pneumonitis due to inhalation of food and vomit
[2022-05-10] MEDS: ENOXAPARIN INJ 40 MG/0.4 ML SYR SQ SCH (08:41)
[2022-05-10] MEDS: PANTOprazole 40 MG TAB PO SCH (08:42)
[2022-05-10] MEDS: levETIRAcetam 500 MG TAB PO SCH ×2 (08:42→22:24)
[2022-05-10] MEDS: DIVALPROEX DELAY RELEASE 250 MG TABEC PO SCH ×2 (09:50→22:24)
--- NOTE | 2022-05-10 11:34 | Hospitalist Progress Note ---
Date of Service May 10, 2022 Assessment & Plan (1) Fever: Plan: - Patient treated for aspiration PNA w/ 7 days with Zosyn (completed on 05/07) and 4 doses of Zithromax 500mg (completed 05/05) - Last TRUE fever documented was 05/04 until 05/09 when he spiked a temp of 39.5C - Repeat blood cx ordered 05/10 - CRP 7 and Procal 0.24 - No obvious skin source - Repeat labs (CBC w/ diff) 05/11 ordered - Consult infectious disease for completeness, appreciate recommendations - APAP as needed for fever - CXR last PM, persistent RUL opacity, suspect he does have a component of chronic aspiration - UA obtained 05/09, negative - COVID and Flu obtained 05/09, also negative - Physician 05/09 reordered Zithromax d/t concern he did not receive full course, will d/c (2) Abnormal CXR: Plan: - Hard to gauge how much is pulmonary edema and how much was infectionbut he is breathing well on room air. - Doubt he would lay still for a Chest CT - Remainder as above (3) Hematemesis: Plan: The patient had unremarkable EGD on April 26, except for removing an impacted grape. - No overt hematemesis this admission. - GI consultation appreciated. - Continue Protonix. (4) Aspiration pneumonia: Plan: - Seen by [facility] services - No OVERT signs of aspiration but does not rule out some chronic aspiration of esophageal reflux (5) Seizure: Plan: - Continue current meds (6) Cerebral palsy: Plan: - Supportive care Plan Interventions as above. Discussed plan with [facility] [employer]INTENA[facility] from [facility]. Her concern is with ongoing fevers and not being able to relay symptoms if he should return to the [facility]. Reassurance given that I would not be planning to dc back today given he spiked the temp of 103F last evening. Will consult ID, hopefully can see him sooner rather than later. Will also want to monitor for AT LEAST 48 hours to f/u on blood cultures. Plan d/w Dr. Thompson. Admission and Anticipated Discharge Date Admission Date: May 02, 2022 Subjective No HPI review of systems obtainable from patient given that he carries a diagnosis of CP and is nonverbal. Caregiver present. She has no new concerns this morning. Pt did spike a temp overnight (last PM at 2300 of 39.7X=172.1F). CXR from 05/09 showed persistent RUL opacity, COVID/Flu/RSV all negative. UA unremarkable. Blood cultures from 05/07 NGTD. PLASTERER MAINTENANCE concerned that they will not be able to provide adequate care for patient if he should return home at this time given his persistent fever manifestations. Review of Systems Review of Systems: Unable to participate in ROS Physical Exam Physical Exam: GENERAL: 62 yo Well-developed, well-nourished WM. NAD. LUNGS: Clear to auscultation bilaterally. No accessory muscle use. No W/R/R. CARDIOVASCULAR: Regular rate and rhythm. No M/G/R. No JVD. ABDOMEN: Soft, non-tender and non-distended. BS normoactive x 4 quad. EXTREMITIES: No edema. Non-tender. Peripheral pulses +2/4. NEUROLOGIC: Awake, alert. Nonverbal. Wheelchair bound. PSYCHIATRIC: CP, somewhat cooperative SKIN: Warm, dry, intact. No rashes or lesions. Results & Data Results & Data ([facility]) Vital Signs (Past 12 Hours) Vital Signs Temp Pulse O2 Del Method 05/10/22 08:00 Room Air 05/10/22 01:48 37.8 C H 05/10/22 00:54 38.9 C H 111 H Diagnostic Findings Chest X-Ray 05/09/22 20:17 XR chest 1V portable CLINICAL HISTORY: prior abnormal CXR TECHNIQUE: Single frontal radiograph of the chest was obtained. Comparison: Comparison is made to chest radiograph 05/07/2022 FINDINGS: No lines and tubes are seen. Exam is limited by patient positioning. The cardiomediastinal silhouette is stable. Prominence and cephalization of the vasculature is seen. Airspace opacity is seen in the right upper lobe. IMPRESSION: 1. Cardiomegaly and mild pulmonary edema. 2. Right upper lung airspace opacity compatible with aspiration, atelectasis, and/or pneumonia. Compared to the prior exam, the lower lungs are relatively clear although evaluation is limited by patient positioning. ACT 112: Negative or not required by law. Electronically signed by: Dylan Figueredo M.D. 05/09/2022 8:48 PM PG Care Time/CCT Total # of Minutes Spent Total Time Spent with Patient: Total time spent is greater than 50% in coordination of care (as documented) at patient's floor/unit and/or counseling patient: Coding Level of Care Code 87828 Subseq Hosp Care Lvl 2 Diagnoses Fever R50.9 Abnormal CXR R93.89 Hematemesis K92.0 Aspiration pneumonia J69.0 Aspiration pneumonia type: unspecified Laterality: bilateral Lung location: unspecified part of lung Seizure R56.9 Cerebral palsy G80.9 (1) Aspiration pneumonia Aspiration pneumonia type: unspecified Laterality: bilateral Lung location: unspecified part of lung Qualified Code(s): J69.0 - Pneumonitis due to inhalation of food and vomit
[2022-05-10] MEDS ORDERED: AZITHROMYCIN 250 MG in DEXTROSE 5% 250 ML IV SCH (16:00)
[2022-05-11 06:39] LABS: Basophils # (auto) 0.04 K/uL (0-0.2); Basophils % (auto) 0.5 %; Eosinophils # (auto) 0.26 K/uL (0-0.50); Hematocrit (blood only) 35.8 % (40.1-51.0); Hemoglobin 11.4 g/dl (14.0-18.0); Immature Granulocytes # (auto) 0.07 K/uL (0.00-0.02); Immature Granulocytes % (auto) 0.8 %; Lymphocytes # (auto) 1.74 K/uL (1.2-3.4); Mean Corpuscular Hemoglobin 29.2 pg (25.0-34.0); Mean Corpuscular Hgb Conc 31.8 g/dL (32.0-36.0); Mean Corpuscular Volume 91.8 fL (80.0-100.0); Mean Platelet Volume 10.1 fL (9.4-12.4); Monocytes # (auto) 0.71 K/uL (0.24-0.82); Monocytes % (auto) 8.1 %; Neutrophils % (auto) 67.6 %; Platelet Count 398 K/uL (130-400); RDW Coefficient of Variation 14.9 % (11.5-14.5); RDW Standard Deviation 50.6 fL (36.4-46.3); White Blood Count 8.72 K/ul (4.8-10.8)
[2022-05-11 07:07] LABS: Albumin Globulin Ratio 1.1 (0.9-2); Albumin Level 3.1 gm/dl (3.4-5.0); BUN Creatinine Ratio 16.7 (10-20); Bilirubin,Total 0.4 mg/dl (0.2-1.0); C Reactive Protein 6.49 mg/dl (0-0.5); Calcium 8.7 mg/dl (8.5-10.1); Creatinine Clr Calc Pharmacy 117.1 ml/min; Est GFR (African American) 132.3 ml/min; Est GFR (Non-African American) 114.1 ml/min; Globulin 2.8 gm/dl (2.5-4.0); Potassium 3.8 mmol/L (3.5-5.1); Total Protein 5.9 gm/dl (6.0-8.3)
[2022-05-11] MEDS: levETIRAcetam 500 MG TAB PO SCH ×2 (09:57→20:57)
[2022-05-11] MEDS: DIVALPROEX DELAY RELEASE 250 MG TABEC PO SCH ×2 (10:01→20:56)
[2022-05-11] MEDS: PANTOprazole 40 MG TAB PO SCH (10:01)
[2022-05-11] MEDS: ENOXAPARIN INJ 40 MG/0.4 ML SYR SQ SCH (10:06)
--- NOTE | 2022-05-11 11:56 | Hospitalist Progress Note ---
Date of Service May 11, 2022 Assessment & Plan (1) Fever: Plan: - Patient treated for aspiration PNA w/ 7 days with Zosyn (completed on 05/07) and 4 doses of Zithromax 500mg (completed 05/05) - Last TRUE fever documented was 05/04 until 05/09 when he spiked a temp of 39.5C - Repeat blood cx ordered 05/10 NGTD - CRP 7.90 and Procal 0.24--> CRP 6.49 and Procal 0.11 - No obvious skin source - Consult infectious disease for completeness, appreciate recommendations. If un able to see by tomorrow 05/12 and pt remains afebrile, will cancel consult - APAP as needed for fever - CXR last PM, persistent RUL opacity, suspect he does have a component of chronic aspiration - UA obtained 05/09, negative - COVID and Flu obtained 05/09, also negative (2) Abnormal CXR: Plan: - Hard to gauge how much is pulmonary edema and how much was infectionbut he is breathing well on room air. - Doubt he would lay still for a Chest CT - Remainder as above (3) Hematemesis: Plan: The patient had unremarkable EGD on April 26, except for removing an impacted grape. - No overt hematemesis this admission. - GI consultation appreciated. - Continue Protonix. (4) Aspiration pneumonia: Plan: - Seen by S[employer] services - No OVERT signs of aspiration but does not rule out some chronic aspiration of esophageal reflux (5) Seizure: Plan: - Continue current meds (6) Cerebral palsy: Plan: - Supportive care Plan Interventions as above. Monitor additional 24 hours to ensure he remains afebrile prior to return home. ID consult ordered but if they are unable to see him by tomorrow and he remains afebrile, will cancel consult and plan to dc back to [facility]. Plan d/w Dr. Thompson. Admission and Anticipated Discharge Date Admission Date: May 02, 2022 Subjective Patient seen on daily rounds this morning. Caregiver present. Pt has remained afebrile over the past 24 hours. No changes or concerns brought up by caregiver. He has completed full course of antibiotics, all of which have been stopped at this point. Review of Systems Review of Systems: Patient does not participate in ROS d/t his intellectual disability/CP Physical Exam Physical Exam: GENERAL: 62 yo Well-developed, well-nourished WM. NAD. LUNGS: Clear to auscultation bilaterally. No accessory muscle use. No W/R/R. CARDIOVASCULAR: Regular rate and rhythm. No M/G/R. No JVD. ABDOMEN: Soft, non-tender and non-distended. BS normoactive x 4 quad. EXTREMITIES: No edema. Non-tender. Peripheral pulses +2/4. NEUROLOGIC: Awake, alert. Nonverbal. Wheelchair bound. PSYCHIATRIC: CP, somewhat cooperative SKIN: Warm, dry, intact. No rashes or lesions. Results & Data Results & Data ([facility]) Vital Signs (Past 12 Hours) Vital Signs Temp Pulse Pulse Resp BP Pulse Ox O2 Del Method 05/11/22 09:47 Room Air 05/11/22 07:45 37.2 C 87 18 100/62 96 Room Air 05/11/22 01:30 37.2 C 96 H 97/58 L 97 Room Air 05/11/22 00:39 98 H Laboratory Results 05/11/22 06:20 05/11/22 06:20 PG Care Time/CCT Total # of Minutes Spent Total Time Spent with Patient: Total time spent is greater than 50% in coordination of care (as documented) at patient's floor/unit and/or counseling patient: Coding Level of Care Code 38509 Subseq Hosp Care Lvl 2 Diagnoses Fever R50.9 Abnormal CXR R93.89 Hematemesis K92.0 Aspiration pneumonia J69.0 Aspiration pneumonia type: unspecified Laterality: bilateral Lung location: unspecified part of lung Seizure R56.9 Cerebral palsy G80.9 (1) Aspiration pneumonia Aspiration pneumonia type: unspecified Laterality: bilateral Lung location: unspecified part of lung Qualified Code(s): J69.0 - Pneumonitis due to inhalation of food and vomit
--- NOTE | 2022-05-12 07:51 | Hospitalist Progress Note ---
Date of Service May 12, 2022 Assessment & Plan (1) Fever: Plan: - Patient treated for aspiration PNA w/ 7 days with Zosyn (completed on 05/07) and 4 doses of Zithromax 500mg (completed 05/05) - Last TRUE fever documented was 05/04 until 05/09 when he spiked a temp of 39.5C - Repeat blood cx ordered 05/10 NGTD - CRP 7.90 and Procal 0.24--> CRP 6.49 and Procal 0.11 - No obvious skin source - Consult infectious disease for completeness, appreciate recommendations. If un able to see by tomorrow 05/12 and pt remains afebrile, will cancel consult - APAP as needed for fever - CXR last PM, persistent RUL opacity, suspect he does have a component of chronic aspiration - UA obtained 05/09, negative - COVID and Flu obtained 05/09, also negative (2) Abnormal CXR: Plan: - Hard to gauge how much is pulmonary edema and how much was infectionbut he is breathing well on room air. - Doubt he would lay still for a Chest CT - Remainder as above (3) Hematemesis: Plan: The patient had unremarkable EGD on April 26, except for removing an impacted grape. - No overt hematemesis this admission. - GI consultation appreciated. - Continue Protonix. (4) Aspiration pneumonia: Plan: - Seen by [employer] services - No OVERT signs of aspiration but does not rule out some chronic aspiration of esophageal reflux (5) Seizure: Plan: - Continue current meds (6) Cerebral palsy: Plan: - Supportive care Plan Interventions as above. Monitor additional 24 hours to ensure he remains afebrile prior to return home. ID consult ordered but if they are unable to see him by tomorrow and he remains afebrile, will cancel consult and plan to dc back to [facility]. Plan d/w Dr. Thompson. Admission and Anticipated Discharge Date Admission Date: May 02, 2022 Results & Data Results & Data ([facility]) Vital Signs (Past 12 Hours) Vital Signs Temp Pulse Resp BP Pulse Ox O2 Del Method 05/12/22 04:03 36 C L 86 16 92/58 L 94 Room Air PG Care Time/CCT Total # of Minutes Spent Total Time Spent with Patient: Total time spent is greater than 50% in coordination of care (as documented) at patient's floor/unit and/or counseling patient: Coding Diagnoses Fever R50.9 Abnormal CXR R93.89 Hematemesis K92.0 Aspiration pneumonia J69.0 Aspiration pneumonia type: unspecified Laterality: bilateral Lung location: unspecified part of lung Seizure R56.9 Cerebral palsy G80.9 (1) Aspiration pneumonia Aspiration pneumonia type: unspecified Laterality: bilateral Lung location: unspecified part of lung Qualified Code(s): J69.0 - Pneumonitis due to inhalation of food and vomit
[2022-05-12] MEDS: PANTOprazole 40 MG TAB PO SCH (08:35)
[2022-05-12] MEDS: DIVALPROEX DELAY RELEASE 250 MG TABEC PO SCH (08:35)
[2022-05-12] MEDS: levETIRAcetam 500 MG TAB PO SCH (08:36)
[2022-05-12] MEDS: ENOXAPARIN INJ 40 MG/0.4 ML SYR SQ SCH (08:39)
[2022-05-12 10:13] LABS: Hematocrit (blood only) 38.4 % (40.1-51.0); Hemoglobin 12.1 g/dl (14.0-18.0); Mean Corpuscular Hemoglobin 29.2 pg (25.0-34.0); Mean Corpuscular Hgb Conc 31.5 g/dL (32.0-36.0); Mean Corpuscular Volume 92.8 fL (80.0-100.0); Mean Platelet Volume 10.5 fL (9.4-12.4); Platelet Count 466 K/uL (130-400); RDW Coefficient of Variation 15.2 % (11.5-14.5); RDW Standard Deviation 51.6 fL (36.4-46.3); Red Blood Count 4.14 M/uL (4.63-6.08); White Blood Count 9.33 K/ul (4.8-10.8)
[2022-05-12 10:35] LABS: Albumin Globulin Ratio 0.9 (0.9-2); Albumin Level 3.2 gm/dl (3.4-5.0); BUN Creatinine Ratio 13.8 (10-20); Bilirubin,Total 0.4 mg/dl (0.2-1.0); Calcium 8.8 mg/dl (8.5-10.1); Est GFR (African American) 128.4 ml/min; Est GFR (Non-African American) 110.8 ml/min; Globulin 3.4 gm/dl (2.5-4.0); Magnesium 1.9 mg/dl (1.7-2.4); Potassium 3.6 mmol/L (3.5-5.1); Total Protein 6.6 gm/dl (6.0-8.3)
--- NOTE | 2022-05-12 13:11 | Discharge Summary ---
Date of Service May 12, 2022 Admission HPI Per Admitting Provider 62yo M w/ hx of cerebral palsy and seizures who presents with aspiration pneumonia. Was admitted recently for food bolus (grape) in esophagus. Underwent EGD with GI. Kept overnight and evaluated by LIFT OPERATOR. No overt aspiration on exam, and LIFT OPERATOR recommended he be discharged on minced and moist (IDDSI 5 "slippery") diet, thin liquids, and usual aspiration precautions. He returns today with caretakers expressing Due to his cerebral palsy, he cannot provide any review of systems. Admission Exam Per Admitting Provider Constitutional: WD/WN, vitals as above + acute distress and + thin Eyes: EOM intact bilaterally; no conjunctival abnormality ENMT: external ear and nose normal, oropharynx normal Neck: trachea midline, no thyromegaly normal visual inspection Respiratory: normal respiratory effort, lungs clear to auscultation no respiratory distress Cardiovascular: RRR, no murmur, no edema Gastrointestinal (Abdomen): Inspection/Auscultation: abdomen normal to inspection; abdomen not distended Skin: no rashes, warm and dry Neurologic: moves all extremities and awake Psychiatric: Orientation: + not alert and + not oriented to person Principal Diagnosis ASpiration Pneumonia Discharge Exam General: WD male sitting in wheelchair, wheeling around the halls with aide initially, NAD HEENT: mmm, eyes anicteric, trachea midline without deviation RESP: CTAB, no w/c/r, 95% on RA CV: RRR, no m/r/g, no pitting edema or calf tenderness, pulses palpable GI: +BS, soft nontender no rivera MSK/Neuro: moves extremities, CP wheelchair bound at baseline, nonverbal Psych: cooperative to exam, nonverbal Skin: warm, dry, no rashes/lesion Discharge Data Allergies Allergy/AdvReac Type Severity Reaction Status Date / Time metoclopramide Allergy Intermediate Agitation Verified 04/29/22 14:19 grapefruit Allergy Mild nasal Verified 04/29/22 14:19 congestion chocolate flavor Allergy Unknown Unknown Verified 04/29/22 14:19 Consultations 05/02/22 11:29 ED Decision to Admit Stat 05/02/22 17:03 Consult Gastroenterology Routine 05/03/22 10:42 Consult Anesthesiology Routine 05/10/22 11:16 Consult Infectious Diseases Routine Ordered Studies Abdomen/Pelvis CT 05/02/22 08:48 CT OF THE ABDOMEN AND PELVIS WITH CONTRAST CLINICAL HISTORY: emesis COMPARISON STUDY: CT of the abdomen and pelvis August 30, 2021. TECHNIQUE: Following IV administration of 95 mL of Optiray, axial images of the abdomen and pelvis were obtained from the lung bases to the proximal femurs. Im ages were reviewed in the axial, sagittal, and coronal planes. IV contrast was administered without complication. Automated exposure control was utilized for the study. A dose lowering technique was utilized adhering to the principles of ALARA. FINDINGS: Please note that the chest CT will be reported separately. Thoracolumbar spine scoliosis is noted. Chronic deformity of the hips. Moderate sized hiatal hernia is noted. The stomach is mildly fluid-filled. Airspace opacities within the lungs are better depicted on chest CT. Pyloric wall thickening is probably due to underdistention. No pneumatosis, free air or portal venous gas is present. Liver, spleen, adrenal glands, kidneys and pancreas are normal. No biliary or pancreatic ductal dilatation. There is no evidence for a bowel obstruction. No lymphadenopathy is present. A 3 cm density along the inferior aspect of the cecum was shown on CT of October 19, 2018. This likely reflects an undescended testis. The left lateral bladder wall lesion shown on prior CT is visualized on this study although suboptimally assessed by CT. There is a small left lateral bladder wall diverticulum. No acute fracture or suspicious lesion within the visualized skeletal structures are present. There is a moderate amount stool within the colon and rectum. Major vasculature is patent. This study is mildly compromised by motion artifact. IMPRESSION: 1. Moderate sized hiatal hernia with mildly dilated fluid-filled stomach. 2. No evidence for a bowel obstruction. Moderate amount stool within the colon and rectum. 3. Redemonstration of a density along the inferior aspect of the cecum. This favors an undescended right testis. Nonemergent Urology consultation is recommended. 4. Airspace opacities within the lower lungs, better depicted on chest CT. These suggest pneumonia or aspiration pneumonitis. ACT 112: Negative or not required by law. Electronically signed by: Marshal Xie M.D. 05/02/2022 10:[address] 05/02/22 09:39 CT OF THE CHEST WITH IV CONTRAST CLINICAL HISTORY: vomiting, hx of food bolus COMPARISON STUDY: Chest radiograph April 25, 2022. TECHNIQUE: Following IV administration of 95 mL of Optiray, helical axial images of the chest were obtained. Sagittal and coronal reconstructions were viewed as well as maximal intensity projections on an independent 3-D workstation. Automated exposure control was utilized for the study. A dose lowering technique was utilized adhering to the principles of ALARA. CT DOSE: 818.69 mGy.cm FINDINGS: Size of the heart is normal. There is no pericardial effusion. No enlarged axillary lymph nodes are present. A slightly enlarged subcarinal lymph node on axial image 135 of 311 measures 1 cm short axis diameter. A few mildly enlarged right hilar nodes are present. A moderate sized hiatal hernia is noted. The gastric fundus, the GE junction and cardia are within the chest. The stomach is mildly fluid-filled. There is trace stranding adjacent to the distal esophagus. There is moderate circumferential esophageal wall thickening. The esophagus is mildly distended fluid-filled. There is no CT evidence for a food bolus on this exam. There is no pneumomediastinum. No pneumothorax or pleural effusion is present. Lungs are suboptimally assessed due to respiratory motion. There are extensive alveolar opacities within the right lung and moderate alveolar opacities within the left lower lobe. Linear density within the right upper lobe favors atelectasis. No acute fracture within the visualized bony thorax. Abdomen and pelvis CT will be reported separately. IMPRESSION: 1. Extensive alveolar opacities throughout the right lung and moderate alveolar opacities within the left lower lobe. The findings favor an infectious process with multifocal pneumonia. Aspiration pneumonitis could appear similar. 2. Moderate-sized hiatal hernia. GE junction, gastric cardia and fundus within the chest. Mildly distended fluid-filled stomach. 3. Mildly dilated fluid-filled esophagus with esophageal wall thickening and mild adjacent stranding. This is nonspecific but suggests esophagitis. No CT evidence for food bolus on this study. 4. Mildly enlarged subcarinal and right hilar lymph nodes. These are likely reactive. However, a follow-up chest CT in 3 months to ensure resolution is recommended. ACT 112: Negative or not required by law. Electronically signed by: Marshal Xie M.D. 05/02/2022 10:35 AM Venous Doppler Study 05/02/22 14:31 LEFT LOWER EXTREMITY VENOUS DOPPLER CLINICAL HISTORY: Possible DVT. Left lower extremity pain and swelling. COMPARISON STUDY: Left lower extremity venous Doppler ultrasound October 2015. TECHNIQUE: Sonography of the deep venous system of the left lower extremity was performed. Compression and augmentation were evaluated. FINDINGS: The left common femoral, superficial femoral and popliteal veins were compressible. Augmentation was normal. Flow was shown within the deep calf vessels. IMPRESSION: No evidence of deep venous thrombus within the left lower extremity. ACT 112: Negative or not required by law. Electronically signed by: Marshal Xie M.D. 05/02/2022 4:00 PM Chest X-Ray 05/04/22 11:58 XR chest 1V portable HISTORY: Follow-up pneumonia COMPARISON: Chest CT 05/02/2022. FINDINGS: There are low lung volumes. No pneumothorax. The heart remains enlarged. Suspect a trace right pleural effusion. There is a large hiatus hernia again noted. Interstitial thickening and multifocal bilateral airspace opacities have slightly progressed. IMPRESSION: Interval progression of the diffuse interstitial thickening and multifocal bilateral airspace opacities. This could represent a pneumonia or pulmonary edema. ACT 112: Negative or not required by law. Electronically signed by: Joe Fleming M.D. 05/04/2022 1:59 PM Chest X-Ray 05/05/22 09:45 XR chest 1V portable CLINICAL HISTORY: suspected fluid overload, pulmonary edema TECHNIQUE: Single frontal radiograph of the chest was obtained. Comparison: Comparison is made to chest radiograph 05/04/2022 FINDINGS: No lines and tubes are seen. The cardiomediastinal silhouette is normal. There is prominence and cephalization of the vasculature with Jovany B lines seen. Bilateral lower lung airspace opacities are improved from prior exam. No evidence of pleural effusion or pneumothorax. Partial visualization of a hiatal hernia is unchanged. IMPRESSION: Pulmonary edema is again seen. Improving bilateral lower lung airspace opacities may represent improving alveolar edema. ACT 112: Negative or not required by law. Electronically signed by: Dylan Figueredo M.D. 05/05/2022 10:09 AM Videofluoroscopic Swallow 05/05/22 11:30 VIDEO SWALLOW STUDY CLINICAL HISTORY: Aspiration. COMPARISON STUDY: No priors. Fluoroscopy time: 2.3 minutes. FINDINGS: Fluoroscopic guidance was provided to the department of speech pathology performing a video swallow study. The patient consumed barium impregnated cracker with paste, pudding, thick liquids, and thin barium while the swallowing mechanism was observed real-time. No penetration or aspiration was seen within the sample textures. IMPRESSION: 1. No penetration or aspiration was identified. 2. See dedicated speech pathology report for detailed findings and recommendations. Dictated: 05/05/2022 12:44 PM Transcribed: 05/05/2022 1:30 PM Evita [id number] [email or web address]_Rita Electronically signed by: Vaughn Santana M.D. 05/05/2022 1:31 PM Chest X-Ray 05/07/22 05:09 SINGLE VIEW CHEST CLINICAL HISTORY: Fever. Aspiration. FINDINGS: An AP, portable, upright chest radiograph is compared to study dated 05/05/2022. Correlation is made with chest CT dated 05/02/2022. The examination is degraded by portable technique and patient rotation. Hiatal hernia is noted. The heart is mildly enlarged. There is pulmonary vascular congestion. There is increasing bilateral airspace consolidation throughout both lungs. Small pleural effusions are suggested. No pneumothorax is seen. The skeletal structures are osteopenic. The bony thorax is grossly intact. IMPRESSION: 1. Mild cardiomegaly with pulmonary vascular congestion. 2. There is increasing bilateral airspace consolidation. This could represent worsening pneumonia/aspiration pneumonitis and/or developing pulmonary edema. Clinical correlation will be essential and radiographic follow-up to resolution is recommended. ACT 112: Negative or not required by law. Electronically signed by: Vaughn Santana M.D. 05/07/2022 8:12 AM Chest X-Ray 05/09/22 20:17 XR chest 1V portable CLINICAL HISTORY: prior abnormal CXR TECHNIQUE: Single frontal radiograph of the chest was obtained. Comparison: Comparison is made to chest radiograph 05/07/2022 FINDINGS: No lines and tubes are seen. Exam is limited by patient positioning. The cardiomediastinal silhouette is stable. Prominence and cephalization of the vasculature is seen. Airspace opacity is seen in the right upper lobe. IMPRESSION: 1. Cardiomegaly and mild pulmonary edema. 2. Right upper lung airspace opacity compatible with aspiration, atelectasis, and/or pneumonia. Compared to the prior exam, the lower lungs are relatively clear although evaluation is limited by patient positioning. ACT 112: Negative or not required by law. Electronically signed by: Dylan Figueredo M.D. 05/09/2022 8:48 PM Hospital Course (1) Aspiration pneumonia: Prior episodes of aspiration requiring EGD for removal of food (prior for grape earlier this summer) Episode of coffee ground emesis by caregiver at home GI consulted s/p EGD with Dr Mccracken 05/07 for impacted grape in esophagus Speech eval -- maintain aspiration precautions, oral hygiene. also given rx for hospital bed at discharge No OVERT signs of aspiration but does not rule out some chronic aspiration of esophageal reflux Completed course abx while inpatient with Zosyn and Azithromycin Of note, CT chest did not enlarged lymph nodes requiring repeat CT chest in 3 months (hx bladder ca) Did discuss this with caregiver at bedside prior to d/c and included on instructions Did have episode of fever of unknown origin. COVID/FLU obtained 05/09 (last fever), NEGATIVE Blood cultures NGTD ID consulted --> agreed with continued monitoring off abx. Could have resp viral panel if fever recurs (to monitor for temp 100.4F or greater) and if resp panel negative, could repeat CR chest/undergoing bronch/BAL for possible mediastinitis/paraesophageal abscess however CT not consistent with that. No further fevers since 05/09, caregiver at bedside states feeding himself and best he's been. Stable for discahrge back to Skills (2) Fever: Patient treated for aspiration PNA w/ 7 days with Zosyn (completed on 05/07) and 4 doses of Zithromax 500mg (completed 05/05) - Last TRUE fever documented was 05/04 until 05/09 when he spiked a temp of 39.5C - Repeat blood cx ordered 05/10 NGTD - CRP 7.90 and Procal 0.24--> CRP 6.49 and Procal 0.11 - No obvious skin source - Consult infectious disease for completeness, appreciate recommendations See above, ok to continue no abx. If recurrance of fever after d/c rec resp viral panel, if negative repeat CT chest/bronch as above CXR with component chronic aspiration Repeat UA negative Repeat COVID negative Flu negative Of note, with aspiration/NPO earlier in stay and with hx seizures, no levels checked for these medications (or seizure activity witnessed), but cannot fully exclude seizure as prior cause for low grade temp patient with baseline cerebral palsy and is non-verbal (3) Abnormal CXR: Hard to gauge how much is pulmonary edema and how much was infectionbut he is breathing well on room air. - Doubt he would lay still for a Chest CT, but if recurrant fevers after discharge would need to consider recommended repeat CT chest in 3 months for enlarged lymph nodes (4) Hematemesis: The patient had unremarkable EGD on April 26, except for removing an impacted grape. - No overt hematemesis this admission. - GI consultation appreciated. Due to hiatal hernia, most of stomach in chest. Not candidate for endoscopic PEG tube placement Eating/drinking and feeding himself per aide in room Did get 1u PRBC for acute drop in hgb - Continued Protonix on discharge consider increasing PPI to BID, adding carafate/surgical consultation in future if issues however no recommendations for increased PPI at discharge NO FURTHER EMESIS Hospital bed, aspiration precautions to be maintained at discharge (5) Seizure: Continued meds once able to take PO IV provided while NPO for medications that could be given IV No seizure activity witnessed during inpatient stay (6) Cerebral palsy: - Supportive care, aides at bedside 28/03 Total Time Total Time Spent Total Time Spent (In Minutes): 65 Discharge Plan Discharge Items Patient Disposition: Home - Home Health Services Reason For Visit: ASPIRATION PNEUMONIA Discharge Diagnosis: Aspiration Pneumonia Goals: You have been hospitalized for an acute medical problem. During your stay at [facility], we have made an effort to correct the problem that brought you to the hospital while keeping you as comfortable as possible. Medications were used to bring your condition under control and your discharge instructions will include directions for any medications you should take after leaving the hospital. Please make sure you see your Primary Care Provider as part of your follow up plan. Activity: Resume your previous activity Non-emergency contact: Primary Care Provider Call non-emergency contact if: you have any medication questions, your symptoms worsen and you have a fever Follow-up/Referrals: Sofia Xie MD [Primary Care Provider] - (PLEASE CALL TO SCHEDULE A DISCHARGE FOLLOW-UP APPOINTMENT WITHIN 7-10 DAYS WITH YOUR PCP.) Diet: Heart Healthy Diet Texture: Easy to Chew Diet Comment: continue oral hygiene, keep head of bed elevated, EASY TO CHEW Addtl Attending Provider Instructions: You have been hospitalized for aspiration pneumonia. You were treated with antibiotics and evaluated by speech therapy. You should continue to maintain aspiration precautions at discharge and a hospital bed should be provided. You should keep head of bed elevated at least 30 degrees at all times or higher to prevent repeat aspirations. You should continue an EASY to CHEW diet and maintain oral hygiene before and after eating. You were taken for an EGD due to a grape that had been lodged. This is particularly important to maintain aspiration precautions and maintain easy to chew diet to prevent recurrence. You should continue the pantoprazole 40mg daily as already taking. This should be taken on an empty stomach thirty minutes prior to eating. They may consider increasing this to twice daily if needed/continued issues outpatient. On the CT imaging of the chest, you did have some enlarged lymph nodes, and it is recommended that you have repeat CT of the chest in 3 months to ensure resolution vs need for further evaluation. You were monitored for any repeat fevers and you have been without a fever for over 48 hours and felt stable for discharge. Please return to the ER with any repeat fevers (greater than 100.4F), shortness of breath, inability to keep up with oral intake/worsening issues with swallowing/choking, or for any symptoms concerning for you. It has been a pleasure being a part of the medical team providing for you while you have been in the hospital. Take care! Pending Studies at Discharge: Yes Studies:: babesiosis PCR Blood cultures -- NO GROWTH AFTER 48 hours Stand-Alone Forms: My [facility] Medications and DC Order Prescriptions: Continued (DME) [facility] See Rx Instructions .ROUTE .MEDSUPPLY Qty: 1 0RF Rx Instructions: As directed- May cut Keppra tabs and Potassium tabs in HALF for easier admin. (DME) [place]s [place] [facility] [place] .ROUTE .MEDSUPPLY Qty: 100 5RF Rx Instructions: Medium Briefs polyethylene glycol 3350 17 gram/dose powder 17 g PO .COMPLEX Qty: 765 5RF Rx Instructions: 17 grams PO Every 3 days and as needed daily; if not bowel movement in 3 days diazepam [Diastat AcuDial] 5-7.5-10 mg kit 7.5 mg IN UD PRN (Reason: seizure activity) Qty: 1 0RF Rx Instructions: Give 1 dose rectally if seizure lasts longer than 5 minutes and call 911 miscellaneous medical [place] [facility] [place] ea miscellaneous ONCE Qty: 1 0RF Rx Instructions: REPLACEMENT ARM PAD FOR A WHEELCHAIR propranolol 10 mg tablet See Rx Instructions .ROUTE .COMPLEX Qty: 56 5RF Dose Instruction: TAKE ONE TABLET BY MOUTH TWICE DAILY. *RAPID HEART* Rx Instructions: TAKE ONE TABLET BY MOUTH TWICE DAILY. *RAPID HEART* potassium chloride 20 mEq tablet,ER particles/crystals See Rx Instructions .ROUTE .COMPLEX Qty: 28 5RF Dose Instruction: TAKE ONE TAB BY MOUTH DAILY *POTASSIUM SUPP* Rx Instructions: TAKE ONE TAB BY MOUTH DAILY *POTASSIUM SUPP* Lubriderm Daily Moisture Lotion 1 applic topical BID Qty: 710 5RF pantoprazole [Protonix] 40 mg tablet,delayed release (DR/EC) 40 mg PO DAILYBB Qty: 90 3RF Rx Instructions: Take 1 tablet by mouth daily, one hour prior to the first meal of the day. levetiracetam [Keppra] 750 mg tablet 1,500 mg PO BID 90 Days Qty: 360 1RF topiramate 100 mg tablet 100 mg PO BID 90 Days Qty: 180 1RF (DME) Hospital Bed Misc See Rx Instructions .Route Qty: 1 0RF Rx Instructions: As directed (DME) Manual Wheelchair Device See Rx Instructions .ROUTE .MEDSUPPLY Qty: 1 0RF Rx Instructions: As directed aspirin 81 mg tablet,delayed release (DR/EC) 81 mg PO QAM triamcinolone acetonide 0.1 % cream 1 applic TOPICAL BID PRN (Reason: rash) Qty: 30 1RF Rx Instructions: Do not apply in same spot for longer than two weeks. lorazepam 0.5 mg tablet 0.5 mg PO BID Qty: 60 5RF acetaminophen 325 mg Tablet 650 mg PO Q6H MDD 3 GRAMS/24 HOURS PRN (Reason: Fever Or Pain) Rx Instructions: NEEDED FOR HEADACHE/MINOR ACHES AND PAIN OR TEMPERATURE GREATER THAN 100 F Debrox 6.5 % Drops 2 drp OTB 3XWK clindamycin phosphate [Cleocin T] 1 % solution 1 applic topical QAM Rx Instructions: APPLY DIRECTED TO SCALP ketoconazole [Nizoral] 2 % Shampoo 1 applic TOPICAL 2XWK Rx Instructions: USE SHAMPOO TO SCALP EVERY TUESDAY AND TUESDAY Robitussin Cough-Chest Francisco Javier DM 5-100 mg/5 mL Liquid 5 ml PO QID PRN (Reason: Congestion) Saline Nasal 0.65 % Aerosol,[place] 1 spray INTRANASAL TID PRN (Reason: Dry Nasal Passages) Young Saline Gel [place],Non-Aerosol 1 spray INTRANASAL BID docusate sodium [Stool Softener] 100 mg capsule 100 mg PO QAM loperamide [Imodium A-D] 2 mg capsule 2 mg PO UD PRN (Reason: Diarrhea) Label Comments: TAKE 2 TABLETS AT ONSET OF LOOSE STOOL THEN TAKE 1 TABLET AFTER EACH LOOSE BOWEL MOVEMENT. TAKE NO MORE THAN 4 DOSES IN 2 DAYS. Tylenol Cold Max Day 5-10-325 mg Tablet 2 tab PO DIRECTED PRN (Reason: Cold Symptoms) alum-mag hydroxide-simeth [Antacid-Simethicone] 400-400-40 mg/5 mL Suspension 30 ml PO Q4H PRN (Reason: UPSET STOMACH/VOMITING) divalproex [Depakote ER] 500 mg tablet extended release 24 hr 500 mg PO QAM Rx Instructions: TOTAL DOSE 750 MG--TAKES WITH 250 MG TAB. sertraline 50 mg tablet 50 mg PO QAM loratadine [Claritin] 10 mg tablet 10 mg PO QAM divalproex [Depakote ER] 250 mg tablet extended release 24 hr 250 mg PO QAM Rx Instructions: TOTAL DOSE 750 MG--TAKES WITH 500 MG TAB. Aquaphor Healing 41 % ointment 1 applic TOPICAL HS Triple Antibiotic 3.5mg-400 unit- 5,000 unit/gram Ointment 1 applic TOPICAL BID calcium carbonate-vitamin D3 500 mg(1,250mg) -400 unit tablet 1 tab PO QAM cyanocobalamin (vitamin B-12) 1,000 mcg capsule 1,000 mcg PO QAM Discharge Orders: Discharge Order (Routine); Ordered 05/12/22 Ordered By: Nubia Person/Other Patient Handouts: Preventing Pneumonia, ED Pneumonia (Adult) Admission Data Admit Date/Time: 05/02/22 11:40 Attending Provider: Noman Kelly Admit Provider: Dany Saenz Primary Care Provider: Sofia Xie Other Providers: [facility],Home Healthcare ; Dany Saenz ; Master Erickson ; Mayco Palmer ; Dani Jean Baptiste ; Brooks Sinha ; Lebron López I. ; Harvinder Marie II ; Lisset Faustin ; Skinny Galo ; Mg Woodward Other Interventions: Discharge Summary Assessment (RN) Last Done: 05/12/22 14:47 Coding Level of Care Code D/C DAY MANAGEMENT >30 MINS Diagnoses Aspiration pneumonia J69.0 Aspiration pneumonia type: unspecified Laterality: bilateral Lung location: unspecified part of lung Fever R50.9 Abnormal CXR R93.89 Hematemesis K92.0 Seizure R56.9 Cerebral palsy G80.9
[2022-05-12 13:47] LABS: Ferritin 60.6 ng/ml (8-388)
[2022-05-12 13:54] LABS: Folate (Folic Acid) 11.57 ng/ml (>5.38)
[2022-05-14 07:42] LABS: Babesia microti DNA Not Detected (Not Detected)
== END 2022-05-12 15:36 | disposition home health service (06) | DRG 178 ==
LOC: ED 08:40 → 2W 11:40 → SUATTDRO 11:40 → 2W 15:31

== ENCOUNTER 2022-05-24 09:08 | Observation (INO) ==
[2022-05-24] MEDS ORDERED: PANTOprazole 80 MG in DEXTROSE 5% 100 ML IV STA (09:30)
[2022-05-24] MEDS ORDERED: LORazepam 2 MG/2 ML SYR IV STA (09:30)
--- NOTE | 2022-05-24 09:34 | Emergency Department Note ---
Impression & Plan Acute upper gastrointestinal bleeding, Hematemesis ED Provider Note Name: RAMIRO LAZAR Age: 62 Sex: M Arrives Via: Walk-In Informant: Caregivers ED Provider: Vlad Echavarria MD Chief Complaint: vomiting Impression: Per impressions above Medical Decision Makin-year-old gentleman with a long history of extensive medical comorbidities secondary to cerebral palsy, microcephaly and wheelchair-bound with severe intellectual disability. Was scoped at the beginning of the month for food bolus. Arrives this morning vomiting repetitively cough cyst which is clearly heme positive. Patient with a soft nontender abdomen. No further vomiting after getting a bed here. Given some Ativan for agitation as well as for his nausea. Given Protonix for the upper GI bleed. Initial hemoglobin is actually better than its been previously. Labs are otherwise unremarkable. Hospitalist consulted for further management. Prior Medical Record and Triage/Nursing Notes reviewed by Me Additional history obtained from obtained from caregivers who are at bedside Differentials:Esophageal ulceration, Ana Rosa-Duncan tear, esophagitis, peptic ulcer disease, variceal bleed, gastritis, epistaxis, fissure, hemorrhoids, as well as other pathologies. Vital Signs: reviewed and remarkable for no significant abnormalities Interventions:, Protonix 80 mg IV, Ativan 1 mg IV Labs:Reviewed and remarkable for no significant abnormalities Consults:Dr Jay CARLTON Hospitalist Plan: Disposition:Hospitalization. Condition: Good History of Present Illness:62-year-old gentleman arrives for evaluation of vomiting. Patient was with caregiver this morning when he began vomiting breakfast. Noted large bloody emesis. Patient increased agitation and upset. After there is no further vomiting but was brought immediately to ER. Has had some dry heaving since getting here. No breathing difficulty, syncope or other concerning signs or symptoms. No reported falls. Patient is on aspirin 81 mg daily without other blood thinner use. He has a recent hospitalization for aspiration pneumonia. He has no known history of gastric ulcer. He has not been on any NSAIDs recently. He does drink coffee every morning. No medications prior to arrival other than his daily meds this morning. ROS: Unable to obtain given patient with intellectual disability Past Medical History:See Below Past Surgical History:See Below Family History:See Below Social History:See Below Home Medications:See Below Allergies:See Below Vitals:Blood Pressure: 106/62, Pulse 84, RR 16, T 36.8C, O2 98% on RA Physical Exam: GENERAL: Patient is agitated/upset appearing and in mild distress. Covered in black emesis (heme positive) EYES: No scleral icterus, unremarkable pupils. ENT: Mucous membranes moist, no nasal congestion. NECK: No masses appreciated, nomeningismus, trachea is midline. RESPIRATORY: No dyspnea. Clear to auscultation and equal bilaterally. No wheeze, no rhonchi. CARDIOVASCULAR: Regular rate and rhythm.No murmurs, rubs, gallops appreciated. GASTROINTESTINAL: Abdomen soft, non-tender, no peritonitis.Bowel sounds positive.No masses appreciated. EXTREMITIES: Spastic motion upper extremities, weak movement legs, no cyanosis, no edema. NEUROLOGIC: Awake, looking around room, no acute motor or sensory deficits, no focal weakness, cranial nerves grossly intact. SKIN: No rash, no jaundice, no diaphoresis. GCS: 15 ED Course: Times/Reassessments: stable, much more comfortable Vlad Echavarria MD Past Med/Surg History Medical History Allergic rhinitis Alternating exotropia Anemia Aphasia Bipolar disorder Bladder carcinoma s/p TURBT 10/2021 Cataracts, both eyes Cerebral palsy Chronic constipation Chronic periodontitis Dermatitis Epilepsy Fever GERD (gastroesophageal reflux disease) History of prematurity Hyperlipidemia Microcephaly Mood disorder PAD (peripheral artery disease) Paraplegia Paroxysmal atrial tachycardia Ptosis, left eyelid Scoliosis Severe intellectual disabilities Spina bifida Surgical History H/O transurethral destruction of bladder lesion 12/2021 History of removal of neck cyst Family History Other Family history non-contributory Social History Smoking Status: Never smoker Hx Alcohol Use: No Hx Substance Use: No Preferred Language: [place] Communication Ability: Unable Visual 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 Limited Training And Development Assistant Required: No Beliefs That Will Affect Care: None marital status: Single Current Living Situation: Personal Care Facility Current Living Situation Comment: Lives at [facility] current occupational status: disabled Feels Safe at Home: Yes caffeine: Yes Dental Care, Regularly: Yes Assistive Devices: Wheelchair Allergies Allergies Allergy/AdvReac Type Severity Reaction Status Date / Time metoclopramide Allergy Intermediate Agitation Verified 04/29/22 14:19 grapefruit Allergy Mild nasal Verified 04/29/22 14:19 congestion chocolate flavor Allergy Unknown Unknown Verified 04/29/22 14:19 Home Meds Home Medications Medication Instructions Recorded Confirmed acetaminophen 325 mg tablet 650 mg PO Q6H PRN Fever Or Pain 10/19/18 05/13/22 carbamide peroxide 6.5 % ear drops 2 drp OTB 3XWK 10/19/18 05/13/22 (Debrox) clindamycin phosphate 1 % topical 1 applic topical QAM 10/19/18 05/13/22 solution (Cleocin T) dextromethorphan-guaifenesin 5 5 ml PO QID PRN Congestion 02/08/19 05/13/22 mg-100 mg/5 mL oral liquid (Robitussin Cough-Chest Congestion DM) ketoconazole 2 % shampoo (Nizoral) 1 applic topical 2XWK 02/08/19 05/13/22 sodium chloride 0.65 % nasal spray 1 spray intranasal TID PRN Dry 02/08/19 05/13/22 aerosol (Saline Nasal) Nasal Passages sodium chloride-aloe vera nasal 1 spray intranasal BID 02/08/19 05/13/22 spray (Carteret Saline Gel nasal spray) docusate sodium 100 mg capsule 100 mg PO QAM 03/12/19 05/13/22 (Stool Softener) plclsltagxchz-IO-sscwndxyppvut 5 2 tab PO DIRECTED PRN Cold 04/07/19 05/13/22 mg-10 mg-325 mg tablet (Tylenol Symptoms Cold Max Day) loperamide 2 mg capsule (Imodium 2 mg PO UD PRN Diarrhea 06/03/19 05/13/22 A-D) aluminum-mag hydroxide-simethicone 30 ml PO Q4H PRN UPSET 03/25/20 05/13/22 400 mg-400 mg-40 mg/5 mL oral susp STOMACH/VOMITING (Antacid-Simethicone) calcium carbonate 500 mg-vitamin 1 tab PO QAM 10/01/21 05/13/22 D3 10 mcg (400 unit) tablet cyanocobalamin (vitamin B-12) 1,000 mcg PO QAM 10/01/21 05/13/22 1,000 mcg capsule aspirin 81 mg tablet,delayed 81 mg PO QAM 11/03/21 05/13/22 release divalproex 250 mg tablet,extended 250 mg PO QAM 04/12/22 05/13/22 release 24 hr (Depakote ER) divalproex 500 mg tablet,extended 500 mg PO QAM 04/12/22 05/13/22 release 24 hr (Depakote ER) loratadine 10 mg tablet (Claritin) 10 mg PO QAM allergies 04/12/22 05/13/22 neomycin-bacitracn Zn-polymyx 3.5 1 applic topical BID 04/12/22 05/13/22 mg-400 unit-5,000 unit/gram top oint (Triple Antibiotic) sertraline 50 mg tablet 50 mg PO QAM 04/12/22 05/13/22 white petrolatum 41 % topical 1 applic topical HS 04/12/22 05/13/22 ointment (Aquaphor Healing) Previous Rx's Medication Instructions Recorded Jobst Stockings (misc) #1 ea 09/18/19 Wheelchair (Manual) (Manual #1 ea 11/07/19 Wheelchair) diaper,brief,adult,disposable #100 ea 03/19/20 (Briefs Medium) polyethylene glycol 3350 17 17 g PO .COMPLEX #765 grams 09/03/21 gram/dose oral powder diazepam 5 mg-7.5 mg-10 mg rectal 7.5 mg OH UD PRN seizure activity 10/05/21 kit (Diastat AcuDial) #1 ea triamcinolone acetonide 0.1 % 1 applic topical BID PRN rash #30 11/03/21 topical cream grams miscellaneous medical supply 1 ea miscellaneous ONCE #1 ea 11/27/21 potassium chloride 20 mEq See Rx Instructions .Route 12/01/21 tablet,extended release(part/cryst) .COMPLEX #28 tabs propranolol 10 mg tablet See Rx Instructions .Route 12/01/21 .COMPLEX #56 tabs emollient combination no.92 1 applic topical BID Dry skin #710 12/15/21 (Lubriderm Daily Moisture lotion) mL pantoprazole 40 mg tablet,delayed 40 mg PO DAILYBB #90 tabs 04/15/22 release (Protonix) levetiracetam 750 mg tablet 1,500 mg PO BID 90 days #360 tabs 04/27/22 (Keppra) topiramate 100 mg tablet 100 mg PO BID 90 days #180 tabs 04/27/22 lorazepam 0.5 mg tablet 0.5 mg PO BID #60 tabs 04/29/22 Hospital Bed Homecare (Hospital #1 ea 05/11/22 Bed) clotrimazole 1 % topical cream 1 applic topical BID 2 weeks #45 05/19/22 grams fluconazole 150 mg tablet 150 mg PO Q3D 2 doses #2 tabs 05/19/22 (Diflucan) Results & Data (ED) Vital Signs Vital Signs - 24 hr 05/24/22 09:19 05/24/22 11:38 Temperature 36.8 C Temperature Source Temporal Artery Scan Pulse Rate 84 Pulse Rate [Apical] 70 Respiratory Rate 16 18 Blood Pressure Position Sitting Pulse Oximetry 98 96 Oxygen Delivery Method Room Air Sepsis Recent Fever Within 48 Hours No Sepsis New/Unexplained Change in Mental Status No Sepsis Action Taken by Nursing No Action Required Laboratory Data Result diagrams: 05/24/22 10:03 05/24/22 10:03 Lab Results 05/24/22 05/24/22 05/24/22 Range/Units 10:03 10:03 10:03 WBC 8.78 (4.8-10.8) K/ul RBC 4.90 (4.63-6.08) M/uL Hgb 14.3 (14.0-18.0) g/dl Hct 46.0 (40.1-51.0) % MCV 93.9 (80.0-100.0) fL MCH 29.2 (25.0-34.0) pg MCHC 31.1 L (32.0-36.0) g/dL RDW Std Deviation 49.2 H (36.4-46.3) fL RDW Coeff of [place] 14.3 (11.5-14.5) % Plt Count 310 (130-400) K/uL MPV 10.3 (9.4-12.4) fL Immature Gran % (Auto) 0.5 % Neut % (Auto) 69.7 % Lymph % (Auto) 19.4 % Treasure % (Auto) 8.0 % Eos % (Auto) 1.9 % Baso % (Auto) 0.5 % Neut # (Auto) 6.13 (1.4-6.5) K/uL Lymph # (Auto) 1.70 (1.2-3.4) K/uL Treasure # (Auto) 0.70 (0.24-0.82) K/uL Eos # (Auto) 0.17 (0-0.50) K/uL Baso # (Auto) 0.04 (0-0.2) K/uL Immature Gran # (Auto) 0.04 H (0.00-0.02) K/uL PT 11.3 (9.0-12.0) Seconds INR 1.1 (0.9-1.1) APTT 25.9 (21.0-31.0) Seconds PTT Ratio 0.9 Sodium (136-145) mmol/L Potassium (3.5-5.1) mmol/L Chloride (98-107) mmol/L Carbon Dioxide (21-32) mmol/L Anion Gap (3-11) BUN (6-23) mg/dl Creatinine (0.6-1.4) mg/dl Est Cr Clr Drug Dosing Est GFR ( Amer) ml/min Est GFR (Non-Af Amer) ml/min BUN/Creatinine Ratio (10-20) Glucose (70-99(Fasting)) mg/dl Calcium (8.5-10.1) mg/dl Magnesium (1.7-2.4) mg/dl Total Bilirubin (0.2-1.0) mg/dl Direct Bilirubin (0-0.2) mg/dl AST (13-39) U/L ALT (7-52) U/L Alkaline Phosphatase (34-104) U/L Troponin I High Sens (0-20) pg/ml Total Protein (6.0-8.3) gm/dl Albumin (3.4-5.0) gm/dl Lipase (11-82) U/L Valproic Acid (50-100) mcg/ml SARS-CoV-2, RNA, NAAT (NEGATIVE) Blood Type O Positive Antibody Screen NEGATIVE 05/24/22 05/24/22 05/24/22 Range/Units 10:03 10:03 10:06 WBC (4.8-10.8) K/ul RBC (4.63-6.08) M/uL Hgb (14.0-18.0) g/dl Hct (40.1-51.0) % MCV (80.0-100.0) fL MCH (25.0-34.0) pg MCHC (32.0-36.0) g/dL RDW Std Deviation (36.4-46.3) fL RDW Coeff of [place] (11.5-14.5) % Plt Count (130-400) K/uL MPV (9.4-12.4) fL Immature Gran % (Auto) % Neut % (Auto) % Lymph % (Auto) % Treasure % (Auto) % Eos % (Auto) % Baso % (Auto) % Neut # (Auto) (1.4-6.5) K/uL Lymph # (Auto) (1.2-3.4) K/uL Treasure # (Auto) (0.24-0.82) K/uL Eos # (Auto) (0-0.50) K/uL Baso # (Auto) (0-0.2) K/uL Immature Gran # (Auto) (0.00-0.02) K/uL PT (9.0-12.0) Seconds INR (0.9-1.1) APTT (21.0-31.0) Seconds PTT Ratio Sodium 144 (136-145) mmol/L Potassium 3.8 (3.5-5.1) mmol/L Chloride 111 H (98-107) mmol/L Carbon Dioxide 23 (21-32) mmol/L Anion Gap 10 (3-11) BUN 17 (6-23) mg/dl Creatinine 0.71 (0.6-1.4) mg/dl Est Cr Clr Drug Dosing Not Reportable Est GFR ( Amer) 118.2 ml/min Est GFR (Non-Af Amer) 102.0 ml/min BUN/Creatinine Ratio 23.9 H (10-20) Glucose 95 (70-99(Fasting)) mg/dl Calcium 9.8 (8.5-10.1) mg/dl Magnesium 2.0 (1.7-2.4) mg/dl Total Bilirubin 0.3 (0.2-1.0) mg/dl Direct Bilirubin 0.1 (0-0.2) mg/dl AST 13 (13-39) U/L ALT 13 (7-52) U/L Alkaline Phosphatase 98 (34-104) U/L Troponin I High Sens 4.1 (0-20) pg/ml Total Protein 7.3 (6.0-8.3) gm/dl Albumin 3.9 (3.4-5.0) gm/dl Lipase 19 (11-82) U/L Valproic Acid 62 (50-100) mcg/ml SARS-CoV-2, RNA, NAAT NEGATIVE (NEGATIVE) Blood Type Antibody Screen Administered Medications Lactated Ringer's (Lr) 1,000 mls @ 100 mls/hr IV .Q10H MALCOLM Last Infusion: 05/24/22 13:57 Dose: 0 mls/hr Documented By: [id number] Admin: 05/24/22 13:48 Dose: 100 mls/hr Documented By: [id number] Valproic Acid 185 mg/ Dextrose 51.85 mls @ 55 mls/hr IV Q6H MALCOLM Stop: 06/23/22 13:44 Last Admin: 05/24/22 14:36 Dose: 55 mls/hr Documented By: [id number] Discontinued Medications Pantoprazole Sodium 80 mg/ (Dextrose) 100 mls @ 400 mls/hr IV ONE STA Stop: 05/24/22 09:44 Last Infusion: 05/24/22 10:37 Dose: 0 mls/hr Documented By: Admin: 05/24/22 10:08 Dose: 400 mls/hr Documented By: [email or web address] Lorazepam (Lorazepam 2 Mg/1 Ml Vial) 1 mg IV NOW STA; Protocol Stop: 05/24/22 09:31 Last Admin: 05/24/22 11:19 Dose: Not Given Documented By: [email or web address] Discharge Plan Visit Data Chief Complaint: Vomiting Stated Complaint: VOMITING BLACK ED Provider: Vlad Echavarria Discharge Problem: Acute upper gastrointestinal bleeding, Hematemesis Patient Disposition: Admitted As Inpatient Discharge Instructions Interventions: ED Discharge Assessment Last Done: 05/24/22 12:31 : Hematemesis Qualifiers: Nausea presence: with nausea Qualified Code(s): K92.0 - Hematemesis
[2022-05-24 10:16] LABS: Basophils # (auto) 0.04 K/uL (0-0.2); Basophils % (auto) 0.5 %; Eosinophils # (auto) 0.17 K/uL (0-0.50); Eosinophils % (auto) 1.9 %; Hemoglobin 14.3 g/dl (14.0-18.0); Immature Granulocytes # (auto) 0.04 K/uL (0.00-0.02); Immature Granulocytes % (auto) 0.5 %; Lymphocytes % (auto) 19.4 %; Mean Corpuscular Hemoglobin 29.2 pg (25.0-34.0); Mean Corpuscular Hgb Conc 31.1 g/dL (32.0-36.0); Mean Corpuscular Volume 93.9 fL (80.0-100.0); Mean Platelet Volume 10.3 fL (9.4-12.4); Neutrophils # (auto) 6.13 K/uL (1.4-6.5); Neutrophils % (auto) 69.7 %; Platelet Count 310 K/uL (130-400); RDW Coefficient of Variation 14.3 % (11.5-14.5); RDW Standard Deviation 49.2 fL (36.4-46.3); White Blood Count 8.78 K/ul (4.8-10.8)
[2022-05-24 10:31] LABS: INR 1.1 (0.9-1.1); Partial Thromboplastin Ratio 0.9; Partial Thromboplastin Time 25.9 Seconds (21.0-31.0); Prothrombin Time 11.3 Seconds (9.0-12.0)
[2022-05-24 10:43] LABS: Troponin I High Sensitivity 4.1 pg/ml (0-20)
[2022-05-24 10:51] LABS: Alanine Aminotransferase 13 U/L (7-52); Albumin Level 3.9 gm/dl (3.4-5.0); Alkaline Phosphatase 98 U/L (34-104); Anion Gap 10 (3-11); Aspartate Aminotransferase 13 U/L (13-39); BUN Creatinine Ratio 23.9 (10-20); Bilirubin Direct 0.1 mg/dl (0-0.2); Bilirubin,Total 0.3 mg/dl (0.2-1.0); Blood Urea Nitrogen 17 mg/dl (6-23); Calcium 9.8 mg/dl (8.5-10.1); Carbon Dioxide 23 mmol/L (21-32); Chloride 111 mmol/L (98-107); Est GFR (African American) 118.2 ml/min; Glucose 95 mg/dl (70-99(Fasting)); Lipase 19 U/L (11-82); Potassium 3.8 mmol/L (3.5-5.1); Sodium 144 mmol/L (136-145); Total Protein 7.3 gm/dl (6.0-8.3)
--- NOTE | 2022-05-24 11:21 | History & Physical Report ---
Date of Service May 24, 2022 Assessment & Plan (1) Hematemesis: Plan: -Admit to med tele -Currently afebrile, hemodynamically stable, and stable on RA -Patient has a long history of recurrent aspiration pneumonia and food impaction, S/P EGD and food bolus removal on 05/07/22, no ulcers or stigmata of bleeding at that time, patient could have developed an ulcer from his recent food impaction and also drinks multiple cups of coffee daily so he does have multiple risk factors -Hgb stable, and hemodynamically stable -Keep NPO for now, GI consult placed -Will keep on protonix drip for now -Will keep on lactated ringer's while NPO to keep patient hydrated -Will convert as many PO meds to IV as possible while NPO -Will obtain Gastric occult blood test now -Will also obtain Chest xray as patient is noted to have right lobe adventitious breath sounds, will hold abx for now as he is afebrile and stable on RA, will obtain am Procal to monitor for infection -Monitor Hgb & HCT q8h for now (2) Cerebral palsy: Plan: -Converted SR TECHNICAL SALES CONSULTANT Depakote, keppra, and topamax to IV, appreciate the assistance from Pharmacy -Caregiver confirmed patient is currently at his neurologic baseline -Patient currently in BL hand mitts as he frequently pulls at his IV, continue to monitor for now (3) Paroxysmal atrial tachycardia: Plan: -PO propranolol converted to IV while NPO -HR currently well-controlled (4) Epilepsy: Plan: -See cerebral palsy -PRN ativan ordered for any seizure activity with comment to notify provider region manager if ativan is required (5) Cataracts, both eyes: Plan: -Continue SR TECHNICAL SALES CONSULTANT eye drops (6) PAD (peripheral artery disease): Plan: Hold SR TECHNICAL SALES CONSULTANT aspirin for now with recent bleeding Plan The patient was seen with and discussed with Dr. Thompson at the time of admisison History of Present Illness Chief Complaint: Hematemesis Primary Care Provider: MD Raz Shepard is a 62yo M w/ hx of cerebral palsy, seizures, recurrent aspiration pneumonia due to tortuous esophagus, GERD, paroxysmal atrial tachycardia, PAD, who presented to the [facility] ED on 05/24/22 with a chief complaint of hematemesis. Per chart review, the patient was recently admitted to [facility] earlier this month for aspiration pneumonia due to a food bolus. He was treated with antibiotics and underwent EGD on 05/07/22 with revealed a food bolus which was subsequently removed, mildly tortuous esophagus, small hiatal hernia, and normal stomach, duodenal bulb and second portion of the duodenum. The patient was admitted for observation post EGD and was also evaluated by ACUPRESSURE THERAPIST who recommended any easy to chew diet with thin liquids; they also recommended keeping food moist. Today, the patient was noted to be lying comfortably in bed at the time of the exam with his caregiver sitting bedside. She states that the patient patient had not had another episode of emesis since admission, until this am. She states that the patient had taken some of his AM meds around 8 am without issue. Approximately 20 min after he had multiple episodes of coffee-ground emesis. The patient has been afebrile and stable on RA since this episode. The caregiver states that the patient normally drinks 2 large cups of coffee daily and has not had episodes of bloody bowel movements or melena. In the ED the patient was found to be afebrile, hemodynamically stable, and stable on room air. He was started on IV Protonix and given 1 mg IV ativan prior to admission. We spoke to the caregiver regarding code status as the patient is non-verbal at baseline and she confirms that he is still a DNR/DNI. Allergies Allergy/AdvReac Type Severity Reaction Status Date / Time metoclopramide Allergy Intermediate Agitation Verified 04/29/22 14:19 grapefruit Allergy Mild nasal Verified 04/29/22 14:19 congestion chocolate flavor Allergy Unknown Unknown Verified 04/29/22 14:19 Home Medications Medication Instructions Recorded Confirmed Type acetaminophen 325 mg tablet 650 mg PO Q6H PRN Fever Or Pain 10/19/18 05/13/22 History carbamide peroxide 6.5 % ear drops 2 drp OTB 3XWK 10/19/18 05/13/22 History (Debrox) clindamycin phosphate 1 % topical 1 applic topical QAM 10/19/18 05/13/22 History solution (Cleocin T) dextromethorphan-guaifenesin 5 5 ml PO QID PRN Congestion 02/08/19 05/13/22 History mg-100 mg/5 mL oral liquid (Robitussin Cough-Chest Congestion DM) ketoconazole 2 % shampoo (Nizoral) 1 applic topical 2XWK 02/08/19 05/13/22 History sodium chloride 0.65 % nasal spray 1 spray intranasal TID PRN Dry 02/08/19 05/13/22 History aerosol (Saline Nasal) Nasal Passages sodium chloride-aloe vera nasal 1 spray intranasal BID 02/08/19 05/13/22 History spray ([place] Saline Gel nasal spray) docusate sodium 100 mg capsule 100 mg PO QAM 03/12/19 05/13/22 History (Stool Softener) kyalwnhuowefk-CO-rhawwvmrtbysx 5 2 tab PO DIRECTED PRN Cold 04/07/19 05/13/22 History mg-10 mg-325 mg tablet (Tylenol Symptoms Cold Max Day) loperamide 2 mg capsule (Imodium 2 mg PO UD PRN Diarrhea 06/03/19 05/13/22 History A-D) Jobst Stockings (misc) #1 ea 09/18/19 05/13/22 Rx Wheelchair (Manual) (Manual #1 ea 11/07/19 05/13/22 Rx Wheelchair) diaper,brief,adult,disposable #100 ea 03/19/20 05/13/22 Rx (Briefs Medium) aluminum-mag hydroxide-simethicone 30 ml PO Q4H PRN UPSET 03/25/20 05/13/22 History 400 mg-400 mg-40 mg/5 mL oral susp STOMACH/VOMITING (Antacid-Simethicone) polyethylene glycol 3350 17 17 g PO .COMPLEX #765 grams 09/03/21 05/13/22 Rx gram/dose oral powder calcium carbonate 500 mg-vitamin 1 tab PO QAM 10/01/21 05/13/22 History D3 10 mcg (400 unit) tablet cyanocobalamin (vitamin B-12) 1,000 mcg PO QAM 10/01/21 05/13/22 History 1,000 mcg capsule diazepam 5 mg-7.5 mg-10 mg rectal 7.5 mg IN UD PRN seizure activity 10/05/21 05/13/22 Rx kit (Diastat AcuDial) #1 ea aspirin 81 mg tablet,delayed 81 mg PO QAM 11/03/21 05/13/22 History release triamcinolone acetonide 0.1 % 1 applic topical BID PRN rash #30 11/03/21 05/13/22 Rx topical cream grams miscellaneous medical supply 1 ea miscellaneous ONCE #1 ea 11/27/21 05/13/22 Rx potassium chloride 20 mEq See Rx Instructions .Route 12/01/21 05/13/22 Rx tablet,extended release(part/cryst) .COMPLEX #28 tabs propranolol 10 mg tablet See Rx Instructions .Route 12/01/21 05/13/22 Rx .COMPLEX #56 tabs emollient combination no.92 1 applic topical BID Dry skin #710 12/15/21 05/13/22 Rx (Lubriderm Daily Moisture lotion) mL divalproex 250 mg tablet,extended 250 mg PO QAM 04/12/22 05/13/22 History release 24 hr (Depakote ER) divalproex 500 mg tablet,extended 500 mg PO QAM 04/12/22 05/13/22 History release 24 hr (Depakote ER) loratadine 10 mg tablet (Claritin) 10 mg PO QAM allergies 04/12/22 05/13/22 History neomycin-bacitracn Zn-polymyx 3.5 1 applic topical BID 04/12/22 05/13/22 History mg-400 unit-5,000 unit/gram top oint (Triple Antibiotic) sertraline 50 mg tablet 50 mg PO QAM 04/12/22 05/13/22 History white petrolatum 41 % topical 1 applic topical HS 04/12/22 05/13/22 History ointment (Aquaphor Healing) pantoprazole 40 mg tablet,delayed 40 mg PO DAILYBB #90 tabs 04/15/22 05/13/22 Rx release (Protonix) levetiracetam 750 mg tablet 1,500 mg PO BID 90 days #360 tabs 04/27/22 05/13/22 Rx (Keppra) topiramate 100 mg tablet 100 mg PO BID 90 days #180 tabs 04/27/22 05/13/22 Rx lorazepam 0.5 mg tablet 0.5 mg PO BID #60 tabs 04/29/22 05/13/22 Rx Hospital Bed Homecare (Hospital #1 ea 05/11/22 05/13/22 Rx Bed) clotrimazole 1 % topical cream 1 applic topical BID 2 weeks #45 09/14/22 Rx grams fluconazole 150 mg tablet 150 mg PO Q3D 2 doses #2 tabs 05/19/22 Rx (Diflucan) Past Med/Surg History Medical History Allergic rhinitis Alternating exotropia Anemia Aphasia Bipolar disorder Bladder carcinoma s/p TURBT 10/2021 Cataracts, both eyes Cerebral palsy Chronic constipation Chronic periodontitis Dermatitis Epilepsy Fever GERD (gastroesophageal reflux disease) History of prematurity Hyperlipidemia Microcephaly Mood disorder PAD (peripheral artery disease) Paraplegia Paroxysmal atrial tachycardia Ptosis, left eyelid Scoliosis Severe intellectual disabilities Spina bifida Surgical History H/O transurethral destruction of bladder lesion 12/2021 History of removal of neck cyst Family History Other Family history non-contributory Social History Smoking Status: Never smoker Hx Alcohol Use: No Hx Substance Use: No Preferred Language: Lao Communication Ability: Unable Visual 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 Limited 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 Required: No Beliefs That Will Affect Care: None marital status: Single Current Living Situation: Personal Care Facility Current Living Situation Comment: Lives at [employer] current occupational status: disabled Feels Safe at Home: Yes caffeine: Yes Dental Care, Regularly: Yes Assistive Devices: Wheelchair Review of Systems Review of Systems: ROS unable to be obtained directly from patient due to his baseline mental status, ROS was obtained from his Caregiver at bedside Denies current fever, chills, headache, changes in vision, hearing, taste, and smell, chest pain, SOB, cough, dysuria, hematuria, and recent falls. All systems have been reviewed and are otherwise negative. Physical Exam Physical Exam: Physical Exam: General: In no acute distress, stated age, chronically ill-appearing HEENT: Normocephalic, atraumatic, no scleral icterus, pupils around round, symmetrical, and reactive to light, moist mucus membranes, trachea midline, no thyromegaly Chest/Pulm: No respiratory distress, symmetrical chest expansion, rhonchi noted in the right middle lobe Cardiac: RRR, no murmurs noted Abdomen: Negative for ascites and bruising, normoactive bowel sounds, soft, non-tender to palpation throughout Musculoskeletal: patient currently with BL mitts placed due to pulling of IV's, no acute trauma, able to move extremities voluntarily Extremities: Radial, dorsalis pedis, and posterior tibial pulses are intact and symmetrical, no edema noted in the BL LE's Skin: Warm, dry, no rashes , lesions, or scars noted Neuro: Alert, does not answer questions or follow commands due to baseline mental status, no focal neuro defects noted Psych: No acute distress, calm Results & Data Results & Data ([facility]) Vital Signs (Past 12 Hours) Vital Signs Temp Pulse Resp Pulse Ox O2 Del Method 05/24/22 09:19 36.8 C 84 16 98 Room Air Laboratory Results Abnormal lab results 05/24/22 05/24/22 Range/Units 10:03 10:03 MCHC 31.1 L (32.0-36.0) g/dL RDW Std Deviation 49.2 H (36.4-46.3) fL Immature Gran # (Auto) 0.04 H (0.00-0.02) K/uL Chloride 111 H (98-107) mmol/L BUN/Creatinine Ratio 23.9 H (10-20) ECG Additional Comments: No EKG obtained prior to admission, will obtain baseline EKG Code Status & VTE Plan Code Status DNR/DNI VTE Prophylaxis Plan VTE Prophylaxis will be ordered: No Supervising Physician Co-Signing Physician Notes Patient seen and examined, chart reviewed, case discussed with Partha Jeffries PA-C and I agree with the assessment and plan as above except as otherwise noted Labs and images reviewed Donny is a 62-year-old male with a past medical history of seizures and cerebral palsy with recurrent aspiration pneumonia with recent hospital admission and discharged 05/12 following food bolus being stuck in his esophagus. Was removed by GI and EGD, is recommended for minced and moist/slippery diet with aspiration precautions moving forward. He represents to the hospital with vomiting this morning and 1 episodes of large bloody emesis. Patient nonverbal at baseline, but with increased agitation. Seen at bedside, skin is warm and dry, no acute distress, cerebral palsy deformity and resting in flexed position. Nonverbal. Seen with lehr loader at bedside. Heart rate regular, trace right diminished breath sounds/rhonchi, left-sided lung jones clear Upper GI bleed: Patient with worsened hematemesis cough and crampy ground emesis, and melena Emesis in ER with obvious blood/melena EGD 05/07/2022: Impacted grape in the middle third of the esophagus, torturous esophagus, normal stomach/duodenal bulb. N.p.o. GI consulted.? Repeat EGD for interval ulceration development Type and screen on file, H&H trended. Hemodynamically stable at time of assessment Loaded with PPI bolus in ER, Protonix gtt. continued Creatinine normal, potassium normal, sodium normal, coags normal - Some RLL rhonchi, CXR for asp pna and pct pending Cerebral palsy, history of seizures Continue Keppra, converted one-to-one IV Depakote 750 mg daily converted to valproic acid IV 185 mg every 6 hours. Valproic acid level pending Ativan 4 mg for breakthrough seizure region manager, notify provider if required PG Care Time/CCT Total # of Minutes Spent Total Time Spent with Patient: Total time spent is greater than 50% in coordination of care (as documented) at patient's floor/unit and/or counseling patient: Coding Level of Care Code Established Pt INT OBSERVATION CARE 70M LVL 3 Patient Type Established History Problem Focused Exam Problem Focused Medical Decision Making Moderate Complexity Diagnoses Hematemesis K92.0 Cerebral palsy G80.9 Paroxysmal atrial tachycardia I47.1 Epilepsy G40.909 Cataracts, both eyes H26.9 PAD (peripheral artery disease) I73.9
--- NOTE | 2022-05-24 12:43 | XRay Report ---
XR chest 1V portable HISTORY: 62 years-old Male aspiration event acute shortness of breath with possible aspiration COMPARISON: Chest radiograph 05/09/2022 TECHNIQUE: Semierect AP view of the chest FINDINGS: Cardiac silhouette is enlarged. Pulmonary vascular congestion with interstitial coarsening. Mild righ t hemidiaphragmatic elevation with mild persistent bibasilar densities. Degenerative changes of the s houlders and spine. No pneumothorax or large pleural effusion. IMPRESSION: Cardiomegaly with pulmonary vascular congestion and interstitial coarsening suggestive of mild pulmonary edema ACT 112: Negative or not required by law. The above report was generated using voice recognition software. It may contain grammatical, syntax o r spelling errors. Electronically signed by: Torsten Hester M.D. 05/24/2022 12:42 PM
[2022-05-24] MEDS ORDERED: LACTATED RINGER'S 1,000 ML IV SCH (13:30)
[2022-05-24] MEDS ORDERED: LORazepam 2 MG/2 ML SYR IV PRN (13:30)
--- NOTE | 2022-05-24 13:49 | Gastrointestinal Consultation ---
Date of Consultation May 24, 2022 Assessment & Plan (1) Vomitin62 year old male with CP who has hx of hiatal hernia and esophageal dysmotility. Hgb stable without signs of ongoing active bleeding. Coffee ground emesis is most likely from trauma from vomiting in setting of hernia. No clinical indicati on of high grade GI bleeding. It is reassuring that the recent endoscopy did not show any advanced pathology. Plan No indication for repeat endoscopy. Cont to work with his diet and eating habits (decrease coffee use) BID oral PPI Supervising Physician Co-Signing Physician Notes I have personally seen and examined the patient with JAVI Aguilar. Her note reflects my exam and findings. I agree with her impression and plan. Stop excessive coffee intake and work with improving swallowing techniques. Sebastien Sellers M.D. History of Present Illness Reason for Consultation: Worsened coffee grounds emesis, hematemesis Requesting Physician: Dr. Thompson Attending Physician: Doyle Thompson MD History of Present Illness Mr. Donny Wang is a a 62 yr old male with CP who is known to our group as he presented w a food bolus and EGD on 05/05/22 w removal of an impacted grape, a tortorous esophagus and small hiatal hernia. He was discharged w recommendations for a slippery diet. According to his care givers, he had done well from the time of discharge until this morning when, about 20 minutes after taking his pills, he vomited w coffee grounds emesis. GI is consulted for worsened hematemesis. Hb is 14.3. BUN is 17. He has not had further emesis since arrival and has not had a BM since arrival. Allergies Allergy/AdvReac Type Severity Reaction Status Date / Time metoclopramide Allergy Intermediate Agitation Verified 04/29/22 14:19 grapefruit Allergy Mild nasal Verified 04/29/22 14:19 congestion chocolate flavor Allergy Unknown Unknown Verified 04/29/22 14:19 Home Medications Medication Instructions Recorded Confirmed Type acetaminophen 325 mg tablet 650 mg PO Q6H PRN Fever Or Pain 10/19/18 05/13/22 History carbamide peroxide 6.5 % ear drops 2 drp OTB 3XWK 10/19/18 05/13/22 History (Debrox) clindamycin phosphate 1 % topical 1 applic topical QAM 10/19/18 05/13/22 History solution (Cleocin T) dextromethorphan-guaifenesin 5 5 ml PO QID PRN Congestion 02/08/19 05/13/22 History mg-100 mg/5 mL oral liquid (Robitussin Cough-Chest Congestion DM) ketoconazole 2 % shampoo (Nizoral) 1 applic topical 2XWK 02/08/19 05/13/22 History sodium chloride 0.65 % nasal spray 1 spray intranasal TID PRN Dry 02/08/19 05/13/22 History aerosol (Saline Nasal) Nasal Passages sodium chloride-aloe vera nasal 1 spray intranasal BID 02/08/19 05/13/22 History spray ([place] Saline Gel nasal spray) docusate sodium 100 mg capsule 100 mg PO QAM 03/12/19 05/13/22 History (Stool Softener) yohfpswtfftjg-ST-gzgeotuynydha 5 2 tab PO DIRECTED PRN Cold 04/07/19 05/13/22 History mg-10 mg-325 mg tablet (Tylenol Symptoms Cold Max Day) loperamide 2 mg capsule (Imodium 2 mg PO UD PRN Diarrhea 06/03/19 05/13/22 History A-D) Jobst Stockings (misc) #1 ea 09/18/19 05/13/22 Rx Wheelchair (Manual) (Manual #1 ea 11/07/19 05/13/22 Rx Wheelchair) diaper,brief,adult,disposable #100 ea 03/19/20 05/13/22 Rx (Briefs Medium) aluminum-mag hydroxide-simethicone 30 ml PO Q4H PRN UPSET 03/25/20 05/13/22 History 400 mg-400 mg-40 mg/5 mL oral susp STOMACH/VOMITING (Antacid-Simethicone) polyethylene glycol 3350 17 17 g PO .COMPLEX #765 grams 09/03/21 05/13/22 Rx gram/dose oral powder calcium carbonate 500 mg-vitamin 1 tab PO QAM 10/01/21 05/13/22 History D3 10 mcg (400 unit) tablet cyanocobalamin (vitamin B-12) 1,000 mcg PO QAM 10/01/21 05/13/22 History 1,000 mcg capsule diazepam 5 mg-7.5 mg-10 mg rectal 7.5 mg MD UD PRN seizure activity 10/05/21 05/13/22 Rx kit (Diastat AcuDial) #1 ea aspirin 81 mg tablet,delayed 81 mg PO QAM 11/03/21 05/13/22 History release triamcinolone acetonide 0.1 % 1 applic topical BID PRN rash #30 11/03/21 05/13/22 Rx topical cream grams miscellaneous medical supply 1 ea miscellaneous ONCE #1 ea 11/27/21 05/13/22 Rx potassium chloride 20 mEq See Rx Instructions .Route 12/01/21 05/13/22 Rx tablet,extended release(part/cryst) .COMPLEX #28 tabs propranolol 10 mg tablet See Rx Instructions .Route 12/01/21 05/13/22 Rx .COMPLEX #56 tabs emollient combination no.92 1 applic topical BID Dry skin #710 12/15/21 05/13/22 Rx (Lubriderm Daily Moisture lotion) mL divalproex 250 mg tablet,extended 250 mg PO QAM 04/12/22 05/13/22 History release 24 hr (Depakote ER) divalproex 500 mg tablet,extended 500 mg PO QAM 04/12/22 05/13/22 History release 24 hr (Depakote ER) loratadine 10 mg tablet (Claritin) 10 mg PO QAM allergies 04/12/22 05/13/22 History neomycin-bacitracn Zn-polymyx 3.5 1 applic topical BID 04/12/22 05/13/22 History mg-400 unit-5,000 unit/gram top oint (Triple Antibiotic) sertraline 50 mg tablet 50 mg PO QAM 04/12/22 05/13/22 History white petrolatum 41 % topical 1 applic topical HS 04/12/22 05/13/22 History ointment (Aquaphor Healing) pantoprazole 40 mg tablet,delayed 40 mg PO DAILYBB #90 tabs 04/15/22 05/13/22 Rx release (Protonix) levetiracetam 750 mg tablet 1,500 mg PO BID 90 days #360 tabs 04/27/22 05/13/22 Rx (Keppra) topiramate 100 mg tablet 100 mg PO BID 90 days #180 tabs 04/27/22 05/13/22 Rx lorazepam 0.5 mg tablet 0.5 mg PO BID #60 tabs 04/29/22 05/13/22 Rx Hospital Bed Homecare (Hospital #1 ea 05/11/22 05/13/22 Rx Bed) clotrimazole 1 % topical cream 1 applic topical BID 2 weeks #45 05/19/22 Rx grams fluconazole 150 mg tablet 150 mg PO Q3D 2 doses #2 tabs 05/19/22 Rx (Diflucan) Patient History Medical History Allergic rhinitis Alternating exotropia Anemia Aphasia Bipolar disorder Bladder carcinoma s/p TURBT 10/2021 Cataracts, both eyes Cerebral palsy Chronic constipation Chronic periodontitis Dermatitis Epilepsy Fever GERD (gastroesophageal reflux disease) History of prematurity Hyperlipidemia Microcephaly Mood disorder PAD (peripheral artery disease) Paraplegia Paroxysmal atrial tachycardia Ptosis, left eyelid Scoliosis Severe intellectual disabilities Spina bifida Surgical History H/O transurethral destruction of bladder lesion 12/2021 History of removal of neck cyst Family History Other Family history non-contributory Social History Smoking Status: Unknown if ever smoked Hx Alcohol Use: No Hx Substance Use: No Preferred Language: Serbian Communication Ability: Unable Communication Ability Comment: NON-VERBAL Visual 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 Limited Set Designer Required: No Beliefs That Will Affect Care: None marital status: Single Current Living Situation: Other Current Living Situation Comment: [facility] W/ [employer]ILLS [facility] [employer] current occupational status: disabled Other Information That Helps Us Care for You: No Feels Safe at Home: Yes Safety Concerns: Feels Safe At This Time caffeine: Yes Dental Care, Regularly: Yes Assistive Devices: Hospital Bed and Wheelchair Review of Systems Review of Systems: Unable to obtain ROS from the pt. Physical Exam Physical Exam: Awake, alert, interactive, non verbal. Does not appear to be uncomfortalbe. Eyes: PERRL, conjunctivae normal, anicteric sclerae ENMT: external ear and nose normal, oropharynx normal Neck: trachea midline, no thyromegaly Respiratory: normal respiratory effort, lungs clear to auscultation Cardiovascular: RRR, no murmur, no edema Gastrointestinal (Abdomen): normal bowel sounds, soft, nontender, no hepatosplenomegaly Neurologic: CP, non verbal Lymphatic: no cervical or axillary lymphadenopathy Results & Data ([facility]) Vital Signs (Past 12 Hours) Vital Signs Temp Pulse Pulse Resp BP Pulse Ox O2 Del Method 05/24/22 13:19 106/62 05/24/22 12:45 36.6 C 62 19 80/35 L 93 Room Air 05/24/22 12:31 87 18 98 Room Air 05/24/22 11:38 70 18 96 05/24/22 09:19 36.8 C 84 16 98 Room Air Laboratory Results WBC 8, Hb 14.3, Hct 46, Plts 310, Na 144, K 3.8, Cl 111, CO2 23, BUN 17, Cr .7, plts 95. Diagnostic Findings CXR 05/24/22: Cardiomegaly with pulmonary vascular congestion and interstitial coarsening suggestive of mild pulmonary edema
[2022-05-24] MEDS ORDERED: LORazepam 4 MG in SYRINGE 2 ML IV PRN (13:55)
[2022-05-24] MEDS: DEXTROSE 5% IV SCH ×2 (14:36→20:27)
[2022-05-24] MEDS: VALPROATE SOD IV SCH ×2 (14:36→20:27)
[2022-05-24] MEDS: PANTOprazole 40 MG in DEXTROSE 5% 100 ML IV SCH ×2 (15:15→19:38)
[2022-05-24 15:34] LABS: Hematocrit (blood only) 41.9 % (40.1-51.0); Hemoglobin 13.6 g/dl (14.0-18.0)
[2022-05-24] MEDS ORDERED: PROPRANOLOL HCL 1 MG/ML 1 ML VIAL IV SCH (21:00)
[2022-05-24] MEDS: levETIRAcetam 1,500 MG in 0.9 % SODIUM CHLORIDE 100 ML IV SCH (21:29)
[2022-05-24 21:51] LABS: Hematocrit (blood only) 38.6 % (40.1-51.0); Hemoglobin 12.4 g/dl (14.0-18.0)
[2022-05-25] MEDS: PANTOprazole 40 MG in DEXTROSE 5% 100 ML IV SCH ×5 (00:41→21:13)
[2022-05-25] MEDS: DEXTROSE 5% IV SCH ×4 (02:37→20:43)
[2022-05-25] MEDS: VALPROATE SOD IV SCH ×4 (02:37→20:43)
[2022-05-25 07:19] LABS: Basophils # (auto) 0.06 K/uL (0-0.2); Basophils % (auto) 0.9 %; Eosinophils # (auto) 0.28 K/uL (0-0.50); Eosinophils % (auto) 4.3 %; Hematocrit (blood only) 40.4 % (40.1-51.0); Hemoglobin 12.8 g/dl (14.0-18.0); Immature Granulocytes # (auto) 0.02 K/uL (0.00-0.02); Immature Granulocytes % (auto) 0.3 %; Lymphocytes # (auto) 2.29 K/uL (1.2-3.4); Lymphocytes % (auto) 34.8 %; Mean Corpuscular Hemoglobin 29.5 pg (25.0-34.0); Mean Corpuscular Hgb Conc 31.7 g/dL (32.0-36.0); Mean Corpuscular Volume 93.1 fL (80.0-100.0); Mean Platelet Volume 10.7 fL (9.4-12.4); Monocytes # (auto) 0.69 K/uL (0.24-0.82); Monocytes % (auto) 10.5 %; Neutrophils # (auto) 3.24 K/uL (1.4-6.5); Neutrophils % (auto) 49.2 %; Platelet Count 248 K/uL (130-400); RDW Coefficient of Variation 14.5 % (11.5-14.5); RDW Standard Deviation 49.6 fL (36.4-46.3); Red Blood Count 4.34 M/uL (4.63-6.08); White Blood Count 6.58 K/ul (4.8-10.8)
[2022-05-25 07:47] LABS: Calcium 9.3 mg/dl (8.5-10.1); Creatinine Clr Calc Pharmacy 61.5 ml/min; Est GFR (African American) 110.3 ml/min; Est GFR (Non-African American) 95.2 ml/min
[2022-05-25] MEDS: CARBAMIDE PEROXIDE 6.5% 15 ML BTL OTB SCH (09:05)
[2022-05-25] MEDS: levETIRAcetam 1,500 MG in 0.9 % SODIUM CHLORIDE 100 ML IV SCH ×2 (09:05→21:40)
--- NOTE | 2022-05-25 17:22 | Hospitalist Progress Note ---
Date of Service May 25, 2022 Assessment & Plan (1) Hematemesis: Plan: -Patient has a long history of recurrent aspiration pneumonia and food impaction, S/P EGD and food bolus removal on 05/07/22, no ulcers or stigmata of bleeding at that time, patient could have developed an ulcer from his recent food impaction and also drinks multiple cups of coffee daily so he does have multiple risk factors for ugi bleed patient access manager of his living situation states she wants to get tests to get answers, I explained to her that medical management is recommended -Hgb stable, and hemodynamically stable -Will keep on protonix drip advance diet and follow hgb (2) Cerebral palsy: Plan: -Converted STRETCHER LEVELER OPERATOR HELPER Depakote, keppra, and topamax to IV, appreciate the assistance from Pharmacy -Caregiver confirmed patient is currently at his neurologic baseline -Patient currently in BL hand mitts as he frequently pulls at his IV, continue to monitor for now (3) Paroxysmal atrial tachycardia: Plan: -PO propranolol converted to IV while NPO -HR currently well-controlled (4) Epilepsy: Plan: -See cerebral palsy -PRN ativan ordered for any seizure activity with comment to notify provider aircraft load controller if ativan is required (5) Cataracts, both eyes: Plan: -Continue STRETCHER LEVELER OPERATOR HELPER eye drops (6) PAD (peripheral artery disease): Plan: Hold STRETCHER LEVELER OPERATOR HELPER aspirin for now with recent bleeding Admission and Anticipated Discharge Date Admission Date: May 24, 2022 Subjective pt is not speaking to me, staff at bedside from retirement says he is usualy more interactive, no vomiting or melena Review of Systems Review of Systems: Unobtainable due to cognitive status Physical Exam Physical Exam: The patient appeared stable Vital signs as documented. Lungs are clear to auscultation but exam not cooperative Cardiac exam, Rhythm is regular.. No murmurs, rubs or gallops. Abdominal exam reveals normal bowel sounds, soft non tender, no masses Extremities are nonedematous and both pedal pulses are normal. Neurologic exam is alert and withdraws to contact Skin is without bruises or rashes Psychologically is without concerns for anxiety or depression. Results & Data Results & Data ([facility]) Vital Signs (Past 12 Hours) Vital Signs Temp Pulse Pulse Resp BP Pulse Ox O2 Del Method 05/25/22 14:20 88 05/25/22 15:22 98.6 F 91 H 18 116/67 99 Room Air 05/25/22 06:08 79 05/25/22 11:23 98.2 F 91 H 20 149/53 H 99 Room Air 05/25/22 07:22 97.9 F 70 18 100/61 97 Room Air PG Care Time/CCT Total # of Minutes Spent Total Time Spent with Patient: Total time spent is greater than 50% in coordination of care (as documented) at patient's floor/unit and/or counseling patient: Coding Level of Care Code 09600 Subseq Hosp Care Lvl 2 Diagnoses Hematemesis K92.0 Cerebral palsy G80.9 Paroxysmal atrial tachycardia I47.1 Epilepsy G40.909 Cataracts, both eyes H26.9 PAD (peripheral artery disease) I73.9
[2022-05-26] MEDS: PANTOprazole 40 MG in DEXTROSE 5% 100 ML IV SCH ×2 (02:14→07:27)
[2022-05-26] MEDS: VALPROATE SOD IV SCH ×4 (02:15→20:39)
[2022-05-26] MEDS: DEXTROSE 5% IV SCH ×4 (02:15→20:39)
[2022-05-26 06:28] LABS: Hematocrit (blood only) 34.5 % (40.1-51.0); Hemoglobin 11.6 g/dl (14.0-18.0); Mean Corpuscular Hemoglobin 29.9 pg (25.0-34.0); Mean Corpuscular Hgb Conc 33.6 g/dL (32.0-36.0); Mean Corpuscular Volume 88.9 fL (80.0-100.0); Mean Platelet Volume 10.4 fL (9.4-12.4); Platelet Count 211 K/uL (130-400); RDW Coefficient of Variation 14.1 % (11.5-14.5); RDW Standard Deviation 45.6 fL (36.4-46.3); Red Blood Count 3.88 M/uL (4.63-6.08); White Blood Count 7.88 K/ul (4.8-10.8)
[2022-05-26 06:51] LABS: BUN Creatinine Ratio 15.4 (10-20); Calcium 8.7 mg/dl (8.5-10.1); Est GFR (African American) 122.6 ml/min; Est GFR (Non-African American) 105.7 ml/min; Magnesium 1.9 mg/dl (1.7-2.4); Potassium 3.7 mmol/L (3.5-5.1)
[2022-05-26] MEDS: levETIRAcetam 1,500 MG in 0.9 % SODIUM CHLORIDE 100 ML IV SCH ×2 (07:26→20:38)
[2022-05-26] MEDS: SUCRALFATE 1 GM/10 ML UDC PO SCH ×4 (08:36→21:04)
[2022-05-26] MEDS: PANTOprazole 40 MG in SYRINGE 0 ML IV SCH ×2 (08:36→20:17)
--- NOTE | 2022-05-26 20:38 | Hospitalist Progress Note ---
Date of Service May 26, 2022 Assessment & Plan (1) Hematemesis: Plan: -Patient has a long history of recurrent aspiration pneumonia and food impaction, S/P EGD and food bolus removal on 05/07/22, no ulcers or stigmata of bleeding at that time, patient could have developed an ulcer from his recent food impaction and also drinks multiple cups of coffee daily so he does have multiple risk factors for ugi bleed account manager of his living situation states she wants to get tests to get answers, I explained to her that medical management is recommended -Hgb stable, and hemodynamically stable -Change Protonix to twice daily dosing added Carafate (2) Cerebral palsy: Plan: -Converted WATER POLLUTION SCIENTIST Depakote, keppra, and topamax to IV, appreciate the assistance from Pharmacy -Caregiver confirmed patient is currently at his neurologic baseline -Patient currently in BL hand mitts as he frequently pulls at his IV, continue to monitor for now (3) Paroxysmal atrial tachycardia: Plan: -PO propranolol converted to IV while NPO -HR currently well-controlled (4) Epilepsy: Plan: -See cerebral palsy -PRN ativan ordered for any seizure activity with comment to notify provider information systems security developer if ativan is required (5) Cataracts, both eyes: Plan: -Continue WATER POLLUTION SCIENTIST eye drops (6) PAD (peripheral artery disease): Plan: Hold WATER POLLUTION SCIENTIST aspirin for now with recent bleeding Admission and Anticipated Discharge Date Admission Date: May 24, 2022 Subjective Patient appears much more awake and alert caregivers at the bedside says nearing his usual activity level he still has not with verbal response but looks comfortable tolerating escalation of diet Review of Systems Review of Systems: Unobtainable due to cognitive status Physical Exam Physical Exam: The patient appeared stable Vital signs as documented. Lungs are clear to auscultation but exam not cooperative Cardiac exam, Rhythm is regular.. No murmurs, rubs or gallops. Abdominal exam reveals normal bowel sounds, soft non tender, no masses Extremities are nonedematous and both pedal pulses are normal. Neurologic exam is alert and withdraws to contact Skin is without bruises or rashes Psychologically is without concerns for anxiety or depression. Results & Data Results & Data ([facility]) Vital Signs (Past 12 Hours) Vital Signs Temp Pulse Pulse Pulse Resp BP BP 05/26/22 20:14 100.0 F H 05/26/22 19:26 101.3 F H 86 18 108/66 05/26/22 16:14 98.2 F 70 18 117/61 05/26/22 14:22 106 H 05/26/22 11:29 98.2 F 92 H 18 124/61 Pulse Ox O2 Del Method 05/26/22 20:14 05/26/22 19:26 96 Room Air 05/26/22 16:14 98 Room Air 05/26/22 14:22 05/26/22 11:29 94 Room Air PG Care Time/CCT Total # of Minutes Spent Total Time Spent with Patient: Total time spent is greater than 50% in coordination of care (as documented) at patient's floor/unit and/or counseling patient: Coding Level of Care Code 60402 Subseq Hosp Care Lvl 2 Diagnoses Hematemesis K92.0 Cerebral palsy G80.9 Paroxysmal atrial tachycardia I47.1 Epilepsy G40.909 Cataracts, both eyes H26.9 PAD (peripheral artery disease) I73.9
[2022-05-27] MEDS: DEXTROSE 5% IV SCH ×2 (02:30→07:49)
[2022-05-27] MEDS: VALPROATE SOD IV SCH ×2 (02:30→07:49)
[2022-05-27] MEDS: CARBAMIDE PEROXIDE 6.5% 15 ML BTL OTB SCH (07:49)
[2022-05-27] MEDS: SUCRALFATE 1 GM/10 ML UDC PO SCH (07:50)
[2022-05-27] MEDS: PANTOprazole 40 MG in SYRINGE 0 ML IV SCH (08:06)
[2022-05-27 08:43] LABS: Hematocrit (blood only) 35.1 % (40.1-51.0); Hemoglobin 11.6 g/dl (14.0-18.0); Mean Corpuscular Hemoglobin 29.9 pg (25.0-34.0); Mean Corpuscular Volume 90.5 fL (80.0-100.0); Mean Platelet Volume 10.4 fL (9.4-12.4); Platelet Count 182 K/uL (130-400); RDW Coefficient of Variation 14.2 % (11.5-14.5); RDW Standard Deviation 47.2 fL (36.4-46.3); Red Blood Count 3.88 M/uL (4.63-6.08); White Blood Count 6.78 K/ul (4.8-10.8)
[2022-05-27] MEDS: levETIRAcetam 1,500 MG in 0.9 % SODIUM CHLORIDE 100 ML IV SCH (09:00)
[2022-05-27 09:08] LABS: Calcium 8.7 mg/dl (8.5-10.1); Creatinine Clr Calc Pharmacy 90.8 ml/min; Est GFR (African American) 128.4 ml/min; Est GFR (Non-African American) 110.8 ml/min; Magnesium 1.9 mg/dl (1.7-2.4); Potassium 3.5 mmol/L (3.5-5.1)
--- NOTE | 2022-05-27 19:38 | Discharge Summary ---
Date of Service May 27, 2022 Admission HPI Per Admitting Provider Raz is a 62yo M w/ hx of cerebral palsy, seizures, recurrent aspiration pneumonia due to tortuous esophagus, GERD, paroxysmal atrial tachycardia, PAD, who presented to the [facility] ED on 05/24/22 with a chief complaint of hematemesis. Per chart review, the patient was recently admitted to [facility] earlier this month for aspiration pneumonia due to a food bolus. He was treated with antibiotics and underwent EGD on 05/07/22 with revealed a food bolus which was subsequently removed, mildly tortuous esophagus, small hiatal hernia, and normal stomach, duodenal bulb and second portion of the duodenum. The patient was admitted for observation post EGD and was also evaluated by EMERGENCY MEDICAL DISPATCHER who recommended any easy to chew diet with thin liquids; they also recommended keeping food moist. Today, the patient was noted to be lying comfortably in bed at the time of the exam with his caregiver sitting bedside. She states that the patient patient had not had another episode of emesis since admission, until this am. She states that the patient had taken some of his AM meds around 8 am without issue. Approximately 20 min after he had multiple episodes of coffee-ground emesis. The patient has been afebrile and stable on RA since this episode. The caregiver states that the patient normally drinks 2 large cups of coffee daily and has not had episodes of bloody bowel movements or melena. In the ED the patient was found to be afebrile, hemodynamically stable, and stable on room air. He was started on IV Protonix and given 1 mg IV ativan prior to admission. We spoke to the caregiver regarding code status as the patient is non-verbal at baseline and she confirms that he is still a DNR/DNI. Principal Diagnosis Concern for upper GI bleed due to anatomical change of significant hiatal hernia Discharge Exam The patient appeared stable Vital signs as documented. Lungs diminshed Cardiac exam, Rhythm is regular.. Extremities are nonedematous and both pedal pulses are normal. Neurologic exam is alert and makes eye contact Skin is without bruises or rashes Discharge Data Allergies Allergy/AdvReac Type Severity Reaction Status Date / Time metoclopramide Allergy Intermediate Agitation Verified 04/29/22 14:19 grapefruit Allergy Mild nasal Verified 04/29/22 14:19 congestion chocolate flavor Allergy Unknown Unknown Verified 04/29/22 14:19 Consultations 05/24/22 11:32 ED Decision to Admit Stat 05/24/22 13:30 Consult Gastroenterology Routine Hospital Course (1) Hematemesis: -Patient has a long history of recurrent aspiration pneumonia and food impaction, S/P EGD and food bolus removal on 05/07/22, no ulcers or stigmata of bleeding at that time, patient could have developed an ulcer from his recent food impaction and also drinks multiple cups of coffee daily so he does have multiple risk factors for ugi bleed plant health manager of his living situation states she wants to get tests to get answers, I explained to her that medical management is recommended -Hgb stable, and hemodynamically stable -Change Protonix to twice daily dosing added Carafate (2) Cerebral palsy: -Converted ASSISTANT DEPARTMENT MANAGER Depakote, keppra, and topamax to IV, appreciate the assistance from Pharmacy -Caregiver confirmed patient is currently at his neurologic baseline - (3) Paroxysmal atrial tachycardia: -PO propranolol converted to IV while NPO -HR currently well-controlled (4) Epilepsy: -See cerebral palsy -PRN ativan ordered for any seizure activity with comment to notify provider television announcer if ativan is required (5) Cataracts, both eyes: -Continue ASSISTANT DEPARTMENT MANAGER eye drops (6) PAD (peripheral artery disease): Hold ASSISTANT DEPARTMENT MANAGER aspirin for now with recent bleeding Total Time Total Time Spent Total Time Spent (In Minutes): It required greater than 30 minutes to prepare this patient for discharge Discharge Plan Discharge Items Patient Disposition: Personal Jail Reason For Visit: GIB, HEMATEMESIS Discharge Diagnosis: GI Bleed Activity: Resume your previous activity Non-emergency contact: Primary Care Provider Call non-emergency contact if: you have any medication questions Follow-up/Referrals: Sofia Xie MD [Primary Care Provider] - Diet: Regular Diet Comment: please limit caffiene and acidic foods Addtl Attending Provider Instructions: please take Carafate for one week 4 x's a day pleae take Protonix bid for one month please follow up with primary care for a recheck and blood work in about a week Pt has a large hiatal hernia, that places him at risk for recurrent issues, the hiatal hernia has displaced his stomach into his chest, to correct this would require a referral to a larger center and is it a large surgery with risk, he may not be a candidate for this, thus the best we can do is to limit things that would make this worse. Please see handout for lifestyle changes to limit irritation of his hiatal hernia and GERD Pending Studies at Discharge: No Stand-Alone Forms: My [employer], Smoking Cessation Skilled Items Patient informed of condition?: Yes DNR: Yes Discharge Level of Care: Other Communicable Disease: No Discharge Prognosis: Stable Lines: None Urinary Catheter: No Medications and DC Order Prescriptions: New sucralfate 100 mg/mL Suspension 1 g PO QID Qty: 400 0RF Continued (DME) [facility] See Rx Instructions .ROUTE .MEDSUPPLY Qty: 1 0RF Rx Instructions: As directed- May cut Keppra tabs and Potassium tabs in HALF for easier admin. ([facility] [place] Briefs Medium [facility] See Rx Instructions .ROUTE .MEDSUPPLY Qty: 100 5RF Rx Instructions: Medium Brief polyethylene glycol 3350 17 gram/dose powder 17 g PO .COMPLEX Qty: 765 5RF Rx Instructions: 17 grams PO Every 3 days and as needed daily; if not bowel movement in 3 days diazepam [Diastat AcuDial] 5-7.5-10 mg kit 7.5 mg NV UD PRN (Reason: seizure activity) Qty: 1 0RF Rx Instructions: Give 1 dose rectally if seizure lasts longer than 5 minutes and call 911 miscellaneous medical supply [facility] 1 ea miscellaneous ONCE Qty: 1 0RF Rx Instructions: REPLACEMENT ARM PAD FOR A WHEELCHAIR propranolol 10 mg tablet See Rx Instructions .ROUTE .COMPLEX Qty: 56 5RF Dose Instruction: TAKE ONE TABLET BY MOUTH TWICE DAILY. *RAPID HEART* Rx Instructions: TAKE ONE TABLET BY MOUTH TWICE DAILY. *RAPID HEART* potassium chloride 20 mEq tablet,ER particles/crystals See Rx Instructions .ROUTE .COMPLEX Qty: 28 5RF Dose Instruction: TAKE ONE TAB BY MOUTH DAILY *POTASSIUM SUPP* Rx Instructions: TAKE ONE TAB BY MOUTH DAILY *POTASSIUM SUPP* Lubriderm Daily Moisture Lotion 1 applic topical BID Qty: 710 5RF levetiracetam [Keppra] 750 mg tablet 1,500 mg PO BID 90 Days Qty: 360 1RF topiramate 100 mg tablet 100 mg PO BID 90 Days Qty: 180 1RF (DME) Hospital Bed [facility] See Rx Instructions .Route Qty: 1 0RF Rx Instructions: As directed fluconazole [Diflucan] 150 mg tablet 150 mg PO Q3D Qty: 2 0RF clotrimazole 1 % cream 1 applic topical BID 14 Days Qty: 45 2RF (DME) Manual Wheelchair Device See Rx Instructions .ROUTE .MEDSUPPLY Qty: 1 0RF Rx Instructions: As directed aspirin 81 mg tablet,delayed release (DR/EC) 81 mg PO QAM triamcinolone acetonide 0.1 % cream 1 applic TOPICAL BID PRN (Reason: rash) Qty: 30 1RF Rx Instructions: Do not apply in same spot for longer than two weeks. lorazepam 0.5 mg tablet 0.5 mg PO BID Qty: 60 5RF acetaminophen 325 mg Tablet 650 mg PO Q6H MDD 3 GRAMS/24 HOURS PRN (Reason: Fever Or Pain) Rx Instructions: NEEDED FOR HEADACHE/MINOR ACHES AND PAIN OR TEMPERATURE GREATER THAN 100 F Debrox 6.5 % Drops 2 drp OTB 3XWK clindamycin phosphate [Cleocin T] 1 % solution 1 applic topical QAM Rx Instructions: APPLY DIRECTED TO SCALP ketoconazole [Nizoral] 2 % Shampoo 1 applic TOPICAL 2XWK Rx Instructions: USE SHAMPOO TO SCALP EVERY TUESDAY AND TUESDAY Robitussin Cough-Chest Francisco Javier DM 5-100 mg/5 mL Liquid 5 ml PO QID PRN (Reason: Congestion) Saline Nasal 0.65 % Aerosol,[place] 1 spray INTRANASAL TID PRN (Reason: Dry Nasal Passages) [place] Saline Gel [place],Non-Aerosol 1 spray INTRANASAL BID docusate sodium [Stool Softener] 100 mg capsule 100 mg PO QAM loperamide [Imodium A-D] 2 mg capsule 2 mg PO UD PRN (Reason: Diarrhea) Label Comments: TAKE 2 TABLETS AT ONSET OF LOOSE STOOL THEN TAKE 1 TABLET AFTER EACH LOOSE BOWEL MOVEMENT. TAKE NO MORE THAN 4 DOSES IN 2 DAYS. Tylenol Cold Max Day 5-10-325 mg Tablet 2 tab PO DIRECTED PRN (Reason: Cold Symptoms) alum-mag hydroxide-simeth [Antacid-Simethicone] 400-400-40 mg/5 mL Suspension 30 ml PO Q4H PRN (Reason: UPSET STOMACH/VOMITING) divalproex [Depakote ER] 500 mg tablet extended release 24 hr 500 mg PO QAM Rx Instructions: TOTAL DOSE 750 MG--TAKES WITH 250 MG TAB. sertraline 50 mg tablet 50 mg PO QAM loratadine [Claritin] 10 mg tablet 10 mg PO QAM divalproex [Depakote ER] 250 mg tablet extended release 24 hr 250 mg PO QAM Rx Instructions: TOTAL DOSE 750 MG--TAKES WITH 500 MG TAB. Aquaphor Healing 41 % ointment 1 applic TOPICAL HS Triple Antibiotic 3.5mg-400 unit- 5,000 unit/gram Ointment 1 applic TOPICAL BID calcium carbonate-vitamin D3 500 mg(1,250mg) -400 unit tablet 1 tab PO QAM cyanocobalamin (vitamin B-12) 1,000 mcg capsule 1,000 mcg PO QAM Changed pantoprazole [Protonix] 40 mg tablet,delayed release (DR/EC) 40 mg PO BID Qty: 90 3RF Rx Instructions: Take 1 tablet by mouth twice daily for one month then return to once a day, one hour prior to the first meal of the day. Discharge Orders: Discharge Order (Routine); Ordered 05/27/22 Ordered By: Noman Person/Other Patient Handouts: GERD Lifestyle Changes, GERD Dc Admission Data Admit Date/Time: 05/24/22 11:48 Attending Provider: Noman Kelly Admit Provider: Doyle Thompson Primary Care Provider: Sofia Xie Other Providers: Doyle Thompson ; Sebastien Sellers ; [facility] Other Interventions: Discharge Summary Assessment (RN) Last Done: 05/27/22 10:51 Coding Level of Care Code D/C DAY MANAGEMENT >30 MINS Diagnoses Hematemesis K92.0 Cerebral palsy G80.9 Paroxysmal atrial tachycardia I47.1 Epilepsy G40.909 Cataracts, both eyes H26.9 PAD (peripheral artery disease) I73.9
== END 2022-05-27 13:30 | disposition home or self-care (01) ==
LOC: ED 09:08 → 2N 09:08 → SUATTDRO 11:48 → 2N 12:31
DX: Z88.8 Allergy status to other drugs, medicaments and biological substances; I47.1 Supraventricular tachycardia; K92.0 Hematemesis; I73.9 Peripheral vascular disease, unspecified; G80.9 Cerebral palsy, unspecified; G40.909 Epilepsy, unspecified, not intractable, without status epilepticus; H26.9 Unspecified cataract; R11.10 Vomiting, unspecified; Z79.82 Long term (current) use of aspirin; Z79.899 Other long term (current) drug therapy; K92.2 Gastrointestinal hemorrhage, unspecified

== ENCOUNTER 2022-06-21 10:42 | Inpatient (IN) ==
--- NOTE | 2022-06-21 11:06 | Emergency Department Note ---
Impression & Plan Pneumonia, Vomiting, Anemia, Weakness ED Provider Note NAME: RAMIRO LAZAR AGE: 62 SEX: M : 1960 ARRIVES VIA: Walk-In INFORMANT: Patient, ED PROVIDER(S): Mamadou Mojica MD Chief Complaint: Weakness, vomiting HPI: Patient does present from skills and does have a recent history of pneumonia and has been taking antibiotics for the last week. Patient reportedly had episode of vomiting around 2 AM this morning. No recent falls or trauma. 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 Patient is also more fatigable and weak and they think that he appears to be pale. No blood in the reported vomit. Patient has not had any cough. They were concerned about aspiration as his SPO2 this morning had been at 89%. He is scheduled to have some dental work completed tomorrow. Patient is nonverbal and noncommunicative at baseline. I think other than his weakness and fatigue he is currently at his neurologic baseline. ROS: See HPI for pertinent positives and negatives. A total of 10 systems were reviewed and otherwise negative. Past medical history: See below Surgical history: See below Social history: See below Physical Exam: GENERAL: NAD, wearing a mask, non-toxic. EYE EXAM: Normal conjunctiva. PERRL, no anisocoria and EOM's grossly intact w/o pain. NECK: Supple, no nuchal rigidity, no adenopathy, non-tender. No signs of me ningismus. FROM of the neck with good chin to chest and neck extension. No stridor. LUNGS: Clear to auscultation. Normal chest wall mechanics. HEART: NSR, no MRG. ABDOMEN: Abdomen soft, non-tender, normo-active bowel sounds, no masses, no rebound or guarding. BACK: No CVA TTP. SKIN: No rashes and no bruising. : Circumcised no obvious swelling of the scrotum and no crepitus or redness to the perineum, no intertriginous rash. UPPER EXTREMITIES: Upper extremities are grossly normal. Well perfused with good pulses and no evidence of rash. LOWER EXTREMITIES: Grossly normal, no edema. Well-perfused with good pulses and no evidence of rash. NEURO EXAM: Moves all 4 extremities weakly, opens eyes Differential diagnoses: Infection, dehydration, metabolic abnormality, hypo/hyperglycemia, electrolyte disturbance, anemia, hypoxia, cardiac sources, intracerebral event, toxicologic, neurologic, as well as other pathologies. Course: Patient was seen and evaluated the bedside. Full history physical exam was performed. EKG interpreted by me Normal sinus rhythm, rate of 76, normal intervals, normal axis, no ST elevations Imaging Studies: See Below Cardiac monitoring: An order was placed for continuous cardiac monitoring. The monitor shows a rate of 75 with sinus rhythm. MDM: Patient was seen due to concern for weakness and fatigue. Blood work was obtained along with blood and urine cultures urinalysis chest x-ray and viral swab. Patient was ordered IV fluids and Zofran. Patient is a white count of 11 with a hemoglobin of 11. The patient's platelet count is unremarkable. Kidney function grossly unremarkable. Mild elevation in chloride and lower bicarb but the patient has a normal gap. Unknown LFTs grossly unremarkable with no negative flu COVID and RSV. Patient's chest film does show concern for new airspace density in the right lower lobe. As the patient certainly may have an aspiration risk given his prior history and the fact that he has not had improvement on his outpatient course of antibiotics believe the patient would benefit from inpatient treatment. Staff at also reported the patient was hypoxemic at the home. I did speak the on-call hospitalist Dr. Mccartney and the patient was admitted to the medicine service Past Med/Surg History Medical History Allergic rhinitis Alternating exotropia Anemia Aphasia Bipolar disorder Bladder carcinoma s/p TURBT 10/2021 Cataracts, both eyes Cerebral palsy Chronic constipation Chronic periodontitis Dermatitis Epilepsy Fever GERD (gastroesophageal reflux disease) History of prematurity Hyperlipidemia Microcephaly Mood disorder PAD (peripheral artery disease) Paraplegia Paroxysmal atrial tachycardia Ptosis, left eyelid Scoliosis Severe intellectual disabilities Spina bifida Surgical History H/O transurethral destruction of bladder lesion 12/2021 History of removal of neck cyst Family History Other Family history non-contributory Social History Smoking Status: Never smoker Hx Alcohol Use: No Hx Substance Use: No Preferred Language: [place] Communication Ability: Unable Visual 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 Limited Gore 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 Required: No Beliefs That Will Affect Care: None marital status: Single Current Living Situation: Other Current Living Situation Comment: SKILLED CARE GIVING HOME W/ SKILLS OF PA current occupational status: disabled Feels Safe at Home: Yes caffeine: Yes Dental Care, Regularly: Yes Assistive Devices: Hospital Bed Allergies Allergies Allergy/AdvReac Type Severity Reaction Status Date / Time metoclopramide Allergy Intermediate Agitation Verified 06/16/22 11:05 grapefruit Allergy Mild nasal Verified 06/16/22 11:05 congestion chocolate flavor Allergy Unknown Unknown Verified 06/16/22 11:05 Home Meds Home Medications Medication Instructions Recorded Confirmed acetaminophen 325 mg tablet 650 mg PO Q6H PRN Fever Or Pain 10/19/18 06/21/22 carbamide peroxide 6.5 % ear drops 2 drp OTB 3XWK 10/19/18 06/21/22 (Debrox) clindamycin phosphate 1 % topical 1 applic topical QAM 10/19/18 06/21/22 solution (Cleocin T) dextromethorphan-guaifenesin 5 5 ml PO QID PRN Congestion 02/08/19 06/21/22 mg-100 mg/5 mL oral liquid (Robitussin Cough-Chest Congestion DM) ketoconazole 2 % shampoo (Nizoral) 1 applic topical 2XWK 02/08/19 06/21/22 sodium chloride 0.65 % nasal spray 1 spray intranasal TID PRN Dry 02/08/19 06/21/22 aerosol (Saline Nasal) Nasal Passages sodium chloride-aloe vera nasal 1 spray intranasal BID 02/08/19 06/21/22 spray ([place] Saline Gel nasal spray) docusate sodium 100 mg capsule 100 mg PO QAM 03/12/19 06/21/22 (Stool Softener) sporjyhlybwve-TR-hgrrhkwebrkgc 5 2 tab PO DIRECTED PRN Cold 04/07/19 06/21/22 mg-10 mg-325 mg tablet (Tylenol Symptoms Cold Max Day) loperamide 2 mg capsule (Imodium 2 mg PO UD PRN Diarrhea 06/03/19 06/21/22 A-D) aluminum-mag hydroxide-simethicone 30 ml PO Q4H PRN UPSET 03/25/20 06/21/22 400 mg-400 mg-40 mg/5 mL oral susp STOMACH/VOMITING (Antacid-Simethicone) cyanocobalamin (vitamin B-12) 1,000 mcg PO QAM 10/01/21 06/21/22 1,000 mcg capsule aspirin 81 mg tablet,delayed 81 mg PO QAM 11/03/21 06/21/22 release loratadine 10 mg tablet (Claritin) 10 mg PO QAM allergies 04/12/22 06/21/22 neomycin-bacitracn Zn-polymyx 3.5 1 applic topical BID 04/12/22 06/21/22 mg-400 unit-5,000 unit/gram top oint (Triple Antibiotic) sertraline 50 mg tablet 50 mg PO QAM 04/12/22 06/21/22 white petrolatum 41 % topical 1 applic topical HS 04/12/22 06/21/22 ointment (Aquaphor Healing) Previous Rx's Medication Instructions Recorded Jobst Stockings (misc) #1 ea 09/18/19 Wheelchair (Manual) (Manual #1 ea 11/07/19 Wheelchair) diaper,brief,adult,disposable #100 ea 03/19/20 (Briefs Medium) polyethylene glycol 3350 17 17 g PO .COMPLEX #765 grams 09/03/21 gram/dose oral powder diazepam 5 mg-7.5 mg-10 mg rectal 7.5 mg ND UD PRN seizure activity 10/05/21 kit (Diastat AcuDial) #1 ea triamcinolone acetonide 0.1 % 1 applic topical BID PRN rash #30 11/03/21 topical cream grams miscellaneous medical supply 1 ea miscellaneous ONCE #1 ea 11/27/21 propranolol 10 mg tablet See Rx Instructions .Route 12/01/21 .COMPLEX #56 tabs emollient combination no.92 1 applic topical BID Dry skin #710 12/15/21 (Lubriderm Daily Moisture lotion) mL topiramate 100 mg tablet 100 mg PO BID 90 days #180 tabs 04/27/22 lorazepam 0.5 mg tablet 0.5 mg PO BID #60 tabs 04/29/22 Hospital Bed Homecare (Hospital #1 ea 05/11/22 Bed) clotrimazole 1 % topical cream 1 applic topical BID 2 weeks #45 05/19/22 grams pantoprazole 40 mg tablet,delayed 40 mg PO BID #90 tabs 05/27/22 release (Protonix) sucralfate 100 mg/mL oral 1 g (10 mL) PO QID #400 mL 05/27/22 suspension divalproex 125 mg capsule,delayed 750 mg PO BID 30 days #360 caps 06/02/22 release sprinkle levetiracetam 100 mg/mL oral 1,500 mg (15 mL) PO BID 30 days 06/02/22 solution (Keppra) #900 mL cholecalciferol (vitamin D3) 25 25 mcg PO DAILY #90 caps 06/04/22 mcg (1,000 unit) capsule potassium chloride 10 mEq 10 meq PO DAILY #90 caps 06/04/22 capsule,extended release Saccharomyces boulardii 250 mg 250 mg PO BID 10 days #20 ea 06/13/22 oral powder packet (FlorastorKids) amoxicillin 400 mg-potassium 11 ml PO Q12H 10 days #220 mL 06/13/22 clavulanate 57 mg/5 mL oral suspension ondansetron 4 mg disintegrating 4 mg PO Q6H PRN nausea and 06/13/22 tablet vomiting #14 tabs Results & Data (ED) Vital Signs Vital Signs - 24 hr 06/21/22 10:58 06/21/22 14:06 06/21/22 11:51 Temperature 36.6 C Temperature Source Temporal Artery Scan Pulse Rate 75 75 Pulse Rate from SpO2 Sensor Respiratory Rate 20 22 Respiratory Effort / Characteristics Non-Labored Spontaneous Respiratory Depth Normal Respiratory Pattern Regular Blood Pressure 113/45 L Blood Pressure Mean 67 Blood Pressure Position Sitting Pulse Oximetry 96 Oxygen Delivery Method Room Air Room Air Sepsis Recent Fever Within 48 Hours No Sepsis New/Unexplained Change in Mental Status N/A Sepsis Action Taken by Nursing No Action Required 06/21/22 12:00 06/21/22 12:30 06/21/22 12:30 Temperature Temperature Source Pulse Rate 76 72 Pulse Rate from SpO2 Sensor 72 Respiratory Rate 15 21 Respiratory Effort / Characteristics Respiratory Depth Respiratory Pattern Blood Pressure 96/63 L Blood Pressure Mean 74 Blood Pressure Position Pulse Oximetry 95 Oxygen Delivery Method Sepsis Recent Fever Within 48 Hours Sepsis New/Unexplained Change in Mental Status Sepsis Action Taken by Nursing 06/21/22 13:00 06/21/22 13:00 06/21/22 13:30 Temperature Temperature Source Pulse Rate 76 Pulse Rate from SpO2 Sensor 76 Respiratory Rate 20 Respiratory Effort / Characteristics Respiratory Depth Respiratory Pattern Blood Pressure 123/67 114/66 Blood Pressure Mean 85 82 Blood Pressure Position Pulse Oximetry 94 Oxygen Delivery Method Sepsis Recent Fever Within 48 Hours Sepsis New/Unexplained Change in Mental Status Sepsis Action Taken by Nursing 06/21/22 13:30 06/21/22 14:00 06/21/22 14:00 Temperature Temperature Source Pulse Rate 75 73 Pulse Rate from SpO2 Sensor 75 73 Respiratory Rate 25 H 21 Respiratory Effort / Characteristics Respiratory Depth Respiratory Pattern Blood Pressure 98/69 L Blood Pressure Mean 78 Blood Pressure Position Pulse Oximetry 97 94 Oxygen Delivery Method Sepsis Recent Fever Within 48 Hours Sepsis New/Unexplained Change in Mental Status Sepsis Action Taken by Usp Medications Current Medication List: was personally reviewed by me Laboratory Data Attestation: I reviewed the patient's lab results. Result diagrams: 06/21/22 13:06 06/21/22 13:06 Lab Results 06/21/22 06/21/22 06/21/22 Range/Units 13:06 13:06 13:06 WBC 11.65 H (4.8-10.8) K/ul RBC 3.71 L (4.63-6.08) M/uL Hgb 11.2 L (14.0-18.0) g/dl Hct 34.3 L (40.1-51.0) % MCV 92.5 (80.0-100.0) fL MCH 30.2 (25.0-34.0) pg MCHC 32.7 (32.0-36.0) g/dL RDW Std Deviation 52.6 H (36.4-46.3) fL RDW Coeff of [place] 15.4 H (11.5-14.5) % Plt Count 260 (130-400) K/uL MPV 10.3 (9.4-12.4) fL Immature Gran % (Auto) 1.0 % Neut % (Auto) 68.3 % Lymph % (Auto) 17.3 % [place] % (Auto) 12.1 % Eos % (Auto) 1.0 % Baso % (Auto) 0.3 % Neut # (Auto) 7.95 H (1.4-6.5) K/uL Lymph # (Auto) 2.02 (1.2-3.4) K/uL [place] # (Auto) 1.41 H (0.24-0.82) K/uL Eos # (Auto) 0.12 (0-0.50) K/uL Baso # (Auto) 0.03 (0-0.2) K/uL Immature Gran # (Auto) 0.12 H (0.00-0.02) K/uL Sodium 141 (136-145) mmol/L Potassium 4.2 (3.5-5.1) mmol/L Chloride 111 H (98-107) mmol/L Carbon Dioxide 19 L (21-32) mmol/L Anion Gap 11 (3-11) BUN 12 (6-23) mg/dl Creatinine 0.70 (0.6-1.4) mg/dl Est Cr Clr Drug Dosing Not Reportable Est GFR ( Amer) 118.9 ml/min Est GFR (Non-Af Amer) 102.6 ml/min BUN/Creatinine Ratio 17.1 (10-20) Glucose 91 (70-99(Fasting)) mg/dl Calcium 9.6 (8.5-10.1) mg/dl Magnesium 2.0 (1.7-2.4) mg/dl Total Bilirubin 0.3 (0.2-1.0) mg/dl AST 10 L (13-39) U/L ALT 7 (7-52) U/L Alkaline Phosphatase 76 (34-104) U/L Troponin I High Sens 5.5 (0-20) pg/ml Total Protein 7.2 (6.0-8.3) gm/dl Albumin 3.6 (3.4-5.0) gm/dl Globulin 3.6 (2.5-4.0) gm/dl Albumin/Globulin Ratio 1.0 (0.9-2) TSH 2.367 (0.300-4.500) uIu/ml Administered Medications Lactated Ringer's (Lr) 1,000 mls @ 999 mls/hr IV .Q1H1M ONE Stop: 06/21/22 19:07 Last Admin: 06/21/22 18:22 Dose: 999 mls/hr Documented By: CB Sucralfate (Sucralfate 1 Gm/10 Ml Udc) 1 gm PO ACHS MALCOLM Stop: 07/21/22 17:09 Last Admin: 06/21/22 18:22 Dose: 1 gm Documented By: CB Discontinued Medications Sodium Chloride (Nss 1000ml) 1,000 mls @ 999 mls/hr IV .Q1H1M MALCOLM Stop: 06/21/22 12:30 Last Infusion: 06/21/22 14:51 Dose: 0 mls/hr Documented By: Admin: 06/21/22 13:27 Dose: 999 mls/hr Documented By: NMS Piperacillin Sod/Tazobactam Sod (Zosyn) 4.5 gm in 120 mls @ 240 mls/hr IV NOW ONE Stop: 06/21/22 14:31 Last Admin: 06/21/22 16:17 Dose: 240 mls/hr Documented By: ML Ondansetron HCl (Ondansetron Inj 2 Mg/Ml 2 Ml Vial) 4 mg IV NOW STA Stop: 06/21/22 11:31 Last Admin: 06/21/22 13:27 Dose: 4 mg Documented By: BROOKE Imaging Data Radiologist's Impression: Chest X-Ray 06/21/22 11:31 XR chest 1V portable CLINICAL HISTORY: weakness TECHNIQUE: Single frontal radiograph of the chest was obtained. Comparison: Comparison is made to chest radiograph 06/13/[address] chest 05/02/2022 FINDINGS: No lines and tubes are seen. Cardiomegaly is noted. Airspace density is at the right lung base. Mild pulmonary edema is seen. No evidence of pleural effusion or pneumothorax. IMPRESSION: New airspace density in the right lower lobe may represent atelectasis, pneumonia, and/or aspiration. Mild pulmonary edema is noted. ACT 112: Negative or not required by law. Electronically signed by: Dylan Figueredo M.D. 06/21/2022 12:35 PM Discharge Plan Visit Data Chief Complaint: Illness Stated Complaint: PALE, VOMITING, ASPIRATION ED Provider: Mamadou Mojica Discharge Problem: Pneumonia, Vomiting, Anemia, Weakness Patient Disposition: Admitted As Inpatient Discharge Instructions Interventions: ED Discharge Assessment Last Done: 06/21/22 16:45
[2022-06-21] MEDS ORDERED: ONDANSETRON INJ 2 MG/ML 2 ML VIAL IV STA (11:30)
[2022-06-21] MEDS ORDERED: SODIUM CHLORIDE 0.9% 1000ML 1,000 ML IV SCH (11:30)
--- NOTE | 2022-06-21 12:36 | XRay Report ---
XR chest 1V portable CLINICAL HISTORY: weakness TECHNIQUE: Single frontal radiograph of the chest was obtained. Comparison: Comparison is made to chest radiograph 06/13/[address] chest 05/02/2022 FINDINGS: No lines and tubes are seen. Cardiomegaly is noted. Airspace density is at the right lung base. Mild pulmonary edema is seen. No evidence of pleural effusion or pneumothorax. IMPRESSION: New airspace density in the right lower lobe may represent atelectasis, pneumonia, and/or aspiration. Mild pulmonary edema is noted. ACT 112: Negative or not required by law. Electronically signed by: Dylan Figueredo M.D. 06/21/2022 12:35 PM
[2022-06-21 13:23] LABS: Basophils # (auto) 0.03 K/uL (0-0.2); Basophils % (auto) 0.3 %; Eosinophils # (auto) 0.12 K/uL (0-0.50); Hematocrit (blood only) 34.3 % (40.1-51.0); Hemoglobin 11.2 g/dl (14.0-18.0); Immature Granulocytes # (auto) 0.12 K/uL (0.00-0.02); Lymphocytes # (auto) 2.02 K/uL (1.2-3.4); Lymphocytes % (auto) 17.3 %; Mean Corpuscular Hemoglobin 30.2 pg (25.0-34.0); Mean Corpuscular Hgb Conc 32.7 g/dL (32.0-36.0); Mean Corpuscular Volume 92.5 fL (80.0-100.0); Mean Platelet Volume 10.3 fL (9.4-12.4); Monocytes # (auto) 1.41 K/uL (0.24-0.82); Monocytes % (auto) 12.1 %; Neutrophils # (auto) 7.95 K/uL (1.4-6.5); Neutrophils % (auto) 68.3 %; Platelet Count 260 K/uL (130-400); RDW Coefficient of Variation 15.4 % (11.5-14.5); RDW Standard Deviation 52.6 fL (36.4-46.3); Red Blood Count 3.71 M/uL (4.63-6.08); White Blood Count 11.65 K/ul (4.8-10.8)
[2022-06-21 13:50] LABS: Alanine Aminotransferase 7 U/L (7-52); Albumin Level 3.6 gm/dl (3.4-5.0); Alkaline Phosphatase 76 U/L (34-104); Anion Gap 11 (3-11); Aspartate Aminotransferase 10 U/L (13-39); BUN Creatinine Ratio 17.1 (10-20); Bilirubin,Total 0.3 mg/dl (0.2-1.0); Blood Urea Nitrogen 12 mg/dl (6-23); Calcium 9.6 mg/dl (8.5-10.1); Carbon Dioxide 19 mmol/L (21-32); Chloride 111 mmol/L (98-107); Est GFR (African American) 118.9 ml/min; Est GFR (Non-African American) 102.6 ml/min; Globulin 3.6 gm/dl (2.5-4.0); Glucose 91 mg/dl (70-99(Fasting)); Potassium 4.2 mmol/L (3.5-5.1); Sodium 141 mmol/L (136-145); Total Protein 7.2 gm/dl (6.0-8.3); Troponin I High Sensitivity 5.5 pg/ml (0-20)
[2022-06-21] MEDS ORDERED: PIPERACILLIN/TAZOBACTAM 4.5 GM/120 ML BAG IV ONE (14:02)
--- NOTE | 2022-06-21 14:14 | History & Physical Report ---
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, was being treated for aspiration pneumonia outpatient with Augment, today would be day 8 of treatment -Was given loading dose of Zosyn in ED, will continue with IV Zosyn q8h for now, switch to oral abx prior to discharge -Prn O2 to keep SpO2 equal to or greater than 95% -Follow blood cultures and tailor abx as able -Follow UA when collected to rule out other possible infections -Patient given 1L NSS bolus in the ED, will hold additional IV fluids for now and monitor on clear liquids -PRN zofran for vomiting -Will start with clear liquid diet for now and will consult speech therapy to see if his diet needs to be adjusted -Aspiration precautions ordered (2) Cerebral palsy: Plan: -Per caregiver, baseline neurologic status is more alert, will intermittently yell and assist with transistions -Continue Sertraline (3) Paroxysmal atrial tachycardia: Plan: -Continue Propranolol, hold for systolic BP less than 100 and HR less than 60 (4) Epilepsy: Plan: -Continue depakote, keppra, ativan, and topamax -Confirmed that patient did get am meds prior to arriving to ed -If unable to take PO meds will have to convert antiepileptic meds to IV (5) GERD (gastroesophageal reflux disease): Plan: -Continue protonix and carafate -No signs of upper or lower GI bleed at this time -Hgb stable (6) PAD (peripheral artery disease): Plan: -continue aspirin (7) Sepsis: Plan: 2nd to #1 Low BPs HOLDing propranolol , ?need to resume at all IVF ordered, stopped, decadron decreased BPs still borderline but appear borderline for patient in past as well Urine cx NO GROWTH BCx NGTD (8) Hypotension: Plan: hold propranolol, topimax suspect related to infection initially, however BPs always borderline --> then with volume overload given worsening hypotension with steroids and fluid retention (aide reported couple weeks edema to patients feet/legs) BPs stable and actually improved with diuretics, as well as Venofer replacement for his iron deficiency anemia BPs 135/68 currently Lasix 20mg IV this afternoon, continue daily for now/monitor response (9) Esophageal abnormality: Plan: h/o tortuous esophagus long-standing swallowing and esophageal issues from such cont PPI bid -- continue IV for now, switch back to PO for tomorrow -- continuing IV to prevent excess PO intake/aspiration Speech consulted as above (10) Severe intellectual disabilities: (11) Anemia: Plan: iron studies w/ low iron/trans % sat Venofer provided 200mg on 06/26, 06/27, consider additional dose in AM Hgb still in 9s, no obvious bleeding on exam, no bloody stool reported Suspect hgb dilutional from volume overload, monitor response to diuretics on AM labs with increased diuretics could also be worsened by abx CBC in AM (12) DVT prophylaxis: Plan: has h/o upper GI bleed however, EGD 05/2022 with normal stomach/duodenum (done for grape food impaction) risk of DVT - given bedbound status - outweighs any risk of heparin SC thus start heparin 5000 BID - continue while inpatient no bleeding reported but will check fecal occult. hgb stable but suspect from volume overload . monitor could also be induced by the IV zosyn CBC in AM Plan The patient was discussed with Dr. Mccartney at the time of admission History of Present Illness Chief Complaint: Generalized weakness Primary Care Provider: Sofia Xie MD Raz is a 62yo M w/ hx of cerebral palsy, seizures, recurrent aspiration pneumonia due to tortuous esophagus, GERD, paroxysmal atrial tachycardia, PAD, who presented to the [facility] ED on 06/21/22 with a chief complaint of generalized weakness. Per the ED staff, the patient's caregivers state that the patient has been on Augmentin for aspiration pneumonia for which he was seen for in the [facility] ED on 06/14/22; she states that today would have been day #8 of treatment. She states that nursing staff reported an episode of emesis and hypoxia (89% on RA) early this am around 0200. When asked, the caregiver states that his emesis was not bloody and did not appear like coffee grounds like his previous GI bleeds, she states that it looked as though he vomited last night's dinner. She states that the nursing staff also reported a fever of 100.6 F this morning as well. The patient is not on oxygen at baseline. Normally he is more alert, will yell at times, and is able to assist with transitions such as grabbing the side of the bed and turning when he needs to be wiped after a bowel movement. In the Ed the patient was found to be afebrile, hemodynamically stable, and stable on RA. Labs were remarkable for a leukocytosis of 11.65 with absolute neutrophils of 7.95, stable Hgb, Bicarb of 19, stable renal function, glucose WNL, TSH WNL. Chest xray showed "New airspace density in the right lower lobe may represent atelectasis, pneumonia, and/or aspiration. Mild pulmonary edema is noted.". The patient was given the loading dose of Zosyn and was given a 1L NSS bolus. Since the patient was just treated outpatient for similar issues we were asked to admit for IV antibiotics. At the time of the exam the patient was sleeping comfortably in bed and did not appear to be in any distress. He was noted to be stable on RA during my examination. Per his caregiver, the patient was able to successfully eat breakfast and take his AM medications without issue. They have continued using the minced and moist diet as recommended by speech n previous admissions. Allergies Allergy/AdvReac Type Severity Reaction Status Date / Time metoclopramide Allergy Intermediate Agitation Verified 06/16/22 11:05 grapefruit Allergy Mild nasal Verified 06/16/22 11:05 congestion chocolate flavor Allergy Unknown Unknown Verified 06/16/22 11:05 Home Medications Medication Instructions Recorded Confirmed Type acetaminophen 325 mg tablet 650 mg PO Q6H PRN Fever Or Pain 10/19/18 06/21/22 History carbamide peroxide 6.5 % ear drops 2 drp OTB 3XWK 10/19/18 06/21/22 History (Debrox) clindamycin phosphate 1 % topical 1 applic topical QAM 10/19/18 06/21/22 History solution (Cleocin T) dextromethorphan-guaifenesin 5 5 ml PO QID PRN Congestion 02/08/19 06/21/22 History mg-100 mg/5 mL oral liquid (Robitussin Cough-Chest Congestion DM) ketoconazole 2 % shampoo (Nizoral) 1 applic topical 2XWK 02/08/19 06/21/22 History sodium chloride 0.65 % nasal spray 1 spray intranasal TID PRN Dry 02/08/19 06/21/22 History aerosol (Saline Nasal) Nasal Passages sodium chloride-aloe vera nasal 1 spray intranasal BID 02/08/19 06/21/22 History spray ([place] Saline Gel nasal spray) docusate sodium 100 mg capsule 100 mg PO QAM 03/12/19 06/21/22 History (Stool Softener) ndeuflsdqpcna-EK-opcnibpkxunik 5 2 tab PO DIRECTED PRN Cold 04/07/19 06/21/22 History mg-10 mg-325 mg tablet (Tylenol Symptoms Cold Max Day) loperamide 2 mg capsule (Imodium 2 mg PO UD PRN Diarrhea 06/03/19 06/21/22 History A-D) Jobst Stockings (misc) #1 ea 09/18/19 06/16/22 Rx Wheelchair (Manual) (Manual #1 ea 11/07/19 06/16/22 Rx Wheelchair) diaper,brief,adult,disposable #100 ea 03/19/20 06/16/22 Rx (Briefs Medium) aluminum-mag hydroxide-simethicone 30 ml PO Q4H PRN UPSET 03/25/20 06/21/22 History 400 mg-400 mg-40 mg/5 mL oral susp STOMACH/VOMITING (Antacid-Simethicone) polyethylene glycol 3350 17 17 g PO .COMPLEX #765 grams 09/03/21 06/21/22 Rx gram/dose oral powder cyanocobalamin (vitamin B-12) 1,000 mcg PO QAM 10/01/21 06/21/22 History 1,000 mcg capsule diazepam 5 mg-7.5 mg-10 mg rectal 7.5 mg CO UD PRN seizure activity 10/05/21 06/21/22 Rx kit (Diastat AcuDial) #1 ea aspirin 81 mg tablet,delayed 81 mg PO QAM 11/03/21 06/21/22 History release triamcinolone acetonide 0.1 % 1 applic topical BID PRN rash #30 11/03/21 06/21/22 Rx topical cream grams miscellaneous medical supply 1 ea miscellaneous ONCE #1 ea 11/27/21 06/21/22 Rx propranolol 10 mg tablet See Rx Instructions .Route 12/01/21 06/21/22 Rx .COMPLEX #56 tabs emollient combination no.92 1 applic topical BID Dry skin #710 12/15/21 06/21/22 Rx (Lubriderm Daily Moisture lotion) mL loratadine 10 mg tablet (Claritin) 10 mg PO QAM allergies 04/12/22 06/21/22 History neomycin-bacitracn Zn-polymyx 3.5 1 applic topical BID 04/12/22 06/21/22 History mg-400 unit-5,000 unit/gram top oint (Triple Antibiotic) sertraline 50 mg tablet 50 mg PO QAM 04/12/22 06/21/22 History white petrolatum 41 % topical 1 applic topical HS 04/12/22 06/21/22 History ointment (Aquaphor Healing) topiramate 100 mg tablet 100 mg PO BID 90 days #180 tabs 04/27/22 06/21/22 Rx lorazepam 0.5 mg tablet 0.5 mg PO BID #60 tabs 04/29/22 06/21/22 Rx Hospital Bed Homecare (Hospital #1 ea 05/11/22 06/16/22 Rx Bed) clotrimazole 1 % topical cream 1 applic topical BID 2 weeks #45 05/19/22 Rx grams pantoprazole 40 mg tablet,delayed 40 mg PO BID #90 tabs 05/27/22 06/21/22 Rx release (Protonix) sucralfate 100 mg/mL oral 1 g (10 mL) PO QID #400 mL 05/27/22 06/21/22 Rx suspension divalproex 125 mg capsule,delayed 750 mg PO BID 30 days #360 caps 06/02/22 06/21/22 Rx release sprinkle levetiracetam 100 mg/mL oral 1,500 mg (15 mL) PO BID 30 days 06/02/22 06/21/22 Rx solution (Keppra) #900 mL cholecalciferol (vitamin D3) 25 25 mcg PO DAILY #90 caps 06/04/22 06/21/22 Rx mcg (1,000 unit) capsule potassium chloride 10 mEq 10 meq PO DAILY #90 caps 06/04/22 06/21/22 Rx capsule,extended release Saccharomyces boulardii 250 mg 250 mg PO BID 10 days #20 ea 06/13/22 06/21/22 Rx oral powder packet (FlorastorKids) amoxicillin 400 mg-potassium 11 ml PO Q12H 10 days #220 mL 06/13/22 06/21/22 Rx clavulanate 57 mg/5 mL oral suspension ondansetron 4 mg disintegrating 4 mg PO Q6H PRN nausea and 06/13/22 06/21/22 Rx tablet vomiting #14 tabs Past Med/Surg History Medical History Allergic rhinitis Alternating exotropia Anemia Aphasia Bipolar disorder Bladder carcinoma s/p TURBT 10/2021 Cataracts, both eyes Cerebral palsy Chronic constipation Chronic periodontitis Dermatitis Epilepsy Fever GERD (gastroesophageal reflux disease) History of prematurity Hyperlipidemia Microcephaly Mood disorder PAD (peripheral artery disease) Paraplegia Paroxysmal atrial tachycardia Ptosis, left eyelid Scoliosis Severe intellectual disabilities Spina bifida Surgical History H/O transurethral destruction of bladder lesion 12/2021 History of removal of neck cyst Family History Other Family history non-contributory Social History Smoking Status: Never smoker Hx Alcohol Use: No Hx Substance Use: No Preferred Language: Mauritian Communication Ability: Unable Visual 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 Limited 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 Required: No Beliefs That Will Affect Care: None marital status: Single Current Living Situation: Other Current Living Situation Comment: [facility] with skills PA current occupational status: disabled Other Information That Helps Us Care for You: No Feels Safe at Home: Yes Safety Concerns: Feels Safe At This Time caffeine: Yes Dental Care, Regularly: Yes Assistive Devices: Hospital Bed and Wheelchair Review of Systems Review of Systems: ROS unable to be obtained from patient due to baseline mental status; for all else see HPI Physical Exam Physical Exam: Physical Exam: General: In no acute distress, stated age, chronically ill appearing. HEENT: Normocephalic, atraumatic, no scleral icterus, pupils around round, symmetrical, and reactive to light, dry mucus membranes, trachea midline, no thyromegaly Chest/Pulm: No respiratory distress, symmetrical chest expansion, decreased breath sounds in the right lower lobe, CTA in all other lung jones Cardiac: RRR, no murmurs noted Abdomen: Negative for ascites and bruising, normoactive bowel sounds, soft, non-tender to palpation throughout Musculoskeletal: Symmetrical, patient moves extremities voluntarily during examination Extremities: Radial, dorsalis pedis, and posterior tibial pulses are intact and symmetrical, no edema noted in the BL LE's Skin: Warm, dry, no rashes , lesions, or scars noted Neuro: Alert, unable to answer orientation questions due to baseline mental state, no focal defects, no seizure-like activity Psych: No acute distress, calm Results & Data Results & Data ([facility]) Vital Signs (Past 12 Hours) Vital Signs Temp Pulse Resp BP Pulse Ox O2 Del Method 06/21/22 14:00 73 21 94 06/21/22 14:00 98/69 L 06/21/22 13:30 75 25 H 97 06/21/22 13:30 114/66 06/21/22 13:00 76 20 94 06/21/22 13:00 123/67 06/21/22 12:30 72 21 95 06/21/22 12:30 96/63 L 06/21/22 12:00 76 15 06/21/22 11:51 75 22 06/21/22 10:58 36.6 C 75 20 113/45 L 96 Room Air Laboratory Results Abnormal lab results 06/21/22 06/21/22 Range/Units 13:06 13:06 WBC 11.65 H (4.8-10.8) K/ul RBC 3.71 L (4.63-6.08) M/uL Hgb 11.2 L (14.0-18.0) g/dl Hct 34.3 L (40.1-51.0) % RDW Std Deviation 52.6 H (36.4-46.3) fL RDW Coeff of [place]og[place] 15.4 H (11.5-14.5) % Neut # (Auto) 7.95 H (1.4-6.5) K/uL Bland # (Auto) 1.41 H (0.24-0.82) K/uL Immature Gran # (Auto) 0.12 H (0.00-0.02) K/uL Chloride 111 H (98-107) mmol/L Carbon Dioxide 19 L (21-32) mmol/L AST 10 L (13-39) U/L Diagnostic Findings Chest X-Ray 06/21/22 11:31 XR chest 1V portable CLINICAL HISTORY: weakness TECHNIQUE: Single frontal radiograph of the chest was obtained. Comparison: Comparison is made to chest radiograph 06/13/[address] chest 05/02/2022 FINDINGS: No lines and tubes are seen. Cardiomegaly is noted. Airspace density is at the right lung base. Mild pulmonary edema is seen. No evidence of pleural effusion or pneumothorax. IMPRESSION: New airspace density in the right lower lobe may represent atelectasis, pneumonia, and/or aspiration. Mild pulmonary edema is noted. ACT 112: Negative or not required by law. Electronically signed by: Dylan Figueredo M.D. 06/21/2022 12:35 PM ECG Additional Comments: Poor data quality, interpretation may be adversely affected Normal sinus rhythm Anterolateral infarct (cited on or before 13-JUN-2022) Abnormal ECG When compared with ECG of 13-JUN-2022 09:14, Questionable change in initial forces of Anterior leads Non-specific change in ST segment in Inferior leads T wave amplitude has increased in Lateral lead Code Status & VTE Plan Code Status DNR/DNI VTE Prophylaxis Plan VTE Prophylaxis will be ordered: Yes Supervising Physician Co-Signing Physician Notes Patient seen and examined at bedside, during face to face encounter obtained a history and physical examination. I discussed plan of care with NICO Jeffries and patient. I reviewed above note and agree with it. Patient admitted for aspiration pneumonia. placed on antibiotics. PG Care Time/CCT Total # of Minutes Spent Total Time Spent with Patient: Total time spent is greater than 50% in coordination of care (as documented) at patient's floor/unit and/or counseling patient: [place] [address] Initial Inpt Care Lvl 1 Patient Type Established Medical Decision Making Straight Forward Diagnoses Aspiration pneumonia J69.0 Cerebral palsy G80.9 Paroxysmal atrial tachycardia I47.1 Epilepsy G40.909 GERD (gastroesophageal reflux disease) K21.9 PAD (peripheral artery disease) I73.9 Sepsis A41.9 Hypotension I95.9 Esophageal abnormality K22.9 Severe intellectual disabilities F72 Anemia D64.9 DVT prophylaxis Z29.9
[2022-06-21 15:40] LABS: Influenza A virus by PCR Negative (Neg); Influenza B virus by PCR Negative (Neg); RSV by PCR Negative (Neg); SARS CoV2 RNA(COVID-19) InHosp NEGATIVE (Negative)
--- NOTE | 2022-06-21 15:46 | Electrocardiogram Report ---
Test Reason : Blood Pressure : / mmHG Vent. Rate : 076 BPM Atrial Rate : 076 BPM P-R Int : 116 ms QRS Dur : 096 ms QT Int : 390 ms P-R-T Axes : 045 039 062 degrees QTc Int : 438 ms Poor data quality, interpretation may be adversely affected Normal sinus rhythm Nondiagnostic lateral Q waves Abnormal ECG When compared with ECG of 13-JUN-2022 09:14, T wave amplitude has increased in Lateral leads Confirmed by Jorge Taylor ([id number]) on 06/21/2022 3:46:19 PM Referred By: REFERRED SELF Confirmed By:Jorge Taylor
[2022-06-21] MEDS ORDERED: SODIUM CHLORIDE 0.65% NA SOLN 45 ML (OCEAN) PRN (17:10)
[2022-06-21] MEDS ORDERED: ACETAMINOPHEN 325 MG TAB PO PRN (17:10)
[2022-06-21] MEDS ORDERED: ALUMINUM/MAGNESIUM/SIMETH (MAALOX MAX) 30 ML UDC PO PRN (17:10)
[2022-06-21] MEDS ORDERED: LACTATED RINGER'S 1,000 ML IV ONE (18:07)
[2022-06-21] MEDS ORDERED: bisacodyL 5 MG TABEC PO PRN (18:15)
[2022-06-21] MEDS: SUCRALFATE 1 GM/10 ML UDC PO SCH ×2 (18:22→22:54)
[2022-06-21] MEDS ORDERED: LACTATED RINGER'S 1,000 ML IV SCH (21:15)
[2022-06-21 21:16] LABS: Base Excess VBG -4.7 mEq/L; HCO3 VBG 20 mmol/L; Oxygen Saturation VBG 65.8 %; PCO2 VBG 37 mmHg (38-50); PO2 VBG 40 mmHg; pH VBG 7.35 (7.36-7.41)
--- NOTE | 2022-06-21 21:21 | Communication Note ---
Date of Service: June 21, 2022 Patient noted to continue having soft blood pressures (latest of 87/53) despite latest fluid bolus. Spoke to nurse who confirmed he has not eaten much today or had much to drink. VBG and depakote levels are in process, will review when they result. Will continue light IV hydration overnight
[2022-06-21] MEDS: PIPERACILLIN/TAZOBACTAM 3.375 GM in DEXTROSE 5% 100 ML IV SCH (22:14)
[2022-06-21] MEDS: DIVALPROEX SODIUM SPRINKLE/DEL-REL 125 MG CAP PO SCH (22:50)
[2022-06-21] MEDS: PANTOprazole 40 MG TAB PO SCH (22:52)
[2022-06-21] MEDS: PROPRANOLOL HCL 10 MG TAB PO SCH (22:53)
[2022-06-21] MEDS: TOPIRAMATE 100 MG TAB PO SCH (22:59)
[2022-06-21] MEDS: LORazepam 0.5 MG TAB PO SCH (22:59)
[2022-06-22 00:27] LABS: Appearance Urine Clear (Clear); Bilirubin Urine Negative (Negative); Blood Urine Negative (Negative); Color Urine Yellow; Glucose Urine UA Negative (Negative); Ketones Urine Trace (Negative); Leukocyte Esterase Urine Negative (Negative); Nitrite Urine Negative (Negative); Protein Urine Negative (Negative); Specific Gravity Urine 1.026 (1.000-1.030); Urobilinogen Urine Negative (Negative); pH Urine 6.5 (4.5-7.5)
[2022-06-22] MEDS: PIPERACILLIN/TAZOBACTAM 3.375 GM in DEXTROSE 5% 100 ML IV SCH ×3 (06:06→21:31)
[2022-06-22 07:57] LABS: Basophils # (auto) 0.03 K/uL (0-0.2); Basophils % (auto) 0.3 %; Eosinophils % (auto) 1.7 %; Hematocrit (blood only) 30.7 % (40.1-51.0); Hemoglobin 10.1 g/dl (14.0-18.0); Immature Granulocytes # (auto) 0.07 K/uL (0.00-0.02); Immature Granulocytes % (auto) 0.6 %; Lymphocytes # (auto) 0.93 K/uL (1.2-3.4); Lymphocytes % (auto) 8.1 %; Mean Corpuscular Hemoglobin 30.1 pg (25.0-34.0); Mean Corpuscular Hgb Conc 32.9 g/dL (32.0-36.0); Mean Corpuscular Volume 91.4 fL (80.0-100.0); Mean Platelet Volume 10.3 fL (9.4-12.4); Monocytes # (auto) 1.23 K/uL (0.24-0.82); Monocytes % (auto) 10.7 %; Neutrophils # (auto) 9.08 K/uL (1.4-6.5); Neutrophils % (auto) 78.6 %; Platelet Count 228 K/uL (130-400); RDW Coefficient of Variation 15.3 % (11.5-14.5); Red Blood Count 3.36 M/uL (4.63-6.08); White Blood Count 11.54 K/ul (4.8-10.8)
[2022-06-22 08:26] LABS: BUN Creatinine Ratio 11.9 (10-20); Calcium 8.4 mg/dl (8.5-10.1); Creatinine Clr Calc Pharmacy 109.2 ml/min; Est GFR (African American) 127.5 ml/min; Potassium 3.7 mmol/L (3.5-5.1)
[2022-06-22] MEDS: SUCRALFATE 1 GM/10 ML UDC PO SCH ×4 (08:42→22:12)
[2022-06-22] MEDS: DIVALPROEX SODIUM SPRINKLE/DEL-REL 125 MG CAP PO SCH ×2 (08:42→22:47)
[2022-06-22] MEDS: PANTOprazole 40 MG TAB PO SCH ×2 (08:43→22:11)
[2022-06-22] MEDS: POTASSIUM CHLORIDE 10 MEQ TABCR PO SCH (08:43)
[2022-06-22] MEDS: PROPRANOLOL HCL 10 MG TAB PO SCH (08:43)
[2022-06-22] MEDS: TOPIRAMATE 100 MG TAB PO SCH ×2 (08:44→22:48)
[2022-06-22] MEDS: SERTRALINE HCL 50 MG TABLET PO SCH (08:44)
[2022-06-22] MEDS: LORazepam 0.5 MG TAB PO SCH ×2 (08:47→21:31)
[2022-06-22] MEDS ORDERED: CHOLECALCIFEROL 1,000 UNITS 25 MCG TAB PO SCH (09:00)
[2022-06-22] MEDS ORDERED: CYANOCOBALAMIN (B-12) 500 MCG TABLET PO SCH (09:00)
[2022-06-22] MEDS ORDERED: ASPIRIN 81 MG ECTAB PO SCH (09:00)
[2022-06-22] MEDS ORDERED: DOCUSATE SODIUM 100 MG CAP PO SCH (09:00)
[2022-06-22] MEDS: levETIRAcetam ORAL SOLN 100MG/ML PO SCH ×2 (10:34→22:48)
--- NOTE | 2022-06-22 12:28 | Hospitalist Progress Note ---
Date of Service June 22, 2022 Assessment & Plan (1) Aspiration pneumonia: Plan: Just completed 7+ day course of augmentin for pneumonia as outpatient. Despite such he did not improve. Ongoing RLL pnemonia on cxr at admission. Day #2 of IV zosyn. Add doxycycline for atypical coverage. MRSA swab today ordered and returned negative. Defer on MRSA coverage unless he fails to improve. Appreciate speech therapy consult. Doesn't have true dysphagia and aspiration but instead a very tortuous esophagus which can lend itself to esophageal dysmotility. Speech advising minced/moist diet and thin liquids. Diet advanced today. Add bronchodilators - xopenex/atrovent nebs q6h due to concurrent wheezes. Cortisol is relatively low given his illness. This, coupled with wheezing -- plan to add dexamethasone 6mg IV BID. alf aides report no COVID or other respiratory illnesses at the [facility] at this time. With that said if he fails to improve or worsens - repeat COVID test warranted. (2) Sepsis: Plan: 2nd to #1 Low BPs today HOLD propranolol NSS bolus 500cc x 1 now then NSS at 100cc/hr Steroids - dexamethasone 6mg IV BID Follow blood cx's (3) Hypotension: Plan: hold propranolol cortisol level 9 - start dexamethasone additional IV fluid bolus, then maintenance low BPs 2nd to #2 and inderal usage (4) Esophageal abnormality: Plan: h/o tortuous esophagus long-standing swallowing and esophageal issues from such cont PPI bid (5) Cerebral palsy: Plan: Per caregivers, baseline neurologic status is more alert than what he is currently demonstrating Smiles, laughs, will intermittently yell He assists with transitions (6) Paroxysmal atrial tachycardia: Plan: history of such due to low BPs - HOLD Propranolol no arrhythmia seen since admission (7) Epilepsy: Plan: Continue depakote, keppra, ativan, and topamax Seizure precautions No seizure activity since admission (8) GERD (gastroesophageal reflux disease): Plan: Continue protonix and carafate (9) PAD (peripheral artery disease): Plan: continue aspirin (10) Severe intellectual disabilities: (11) DVT prophylaxis: Plan: has h/o upper GI bleed however, EGD 05/2022 with normal stomach/duodenum risk of DVT - given bedbound status - outweighs any risk of heparin SC thus start heparin 5000 BID Admission and Anticipated Discharge Date Admission Date: June 21, 2022 Subjective during my visit 2 aides from the [facility] where Mr Wang were present they state that at baseline he is noncommunicative but does laugh, smile, etc the aides report he has no living family aides express concern about his cough they confirm he is significantly altered from his baseline seen by speech therapy this am - minced/moist diet advised; thickeners not recommended (see their report) tele overnight wnl this am, following his usual propranolol 10mg, his BP dropped to the 80s systolic Review of Systems Review of Systems: Unobtainable due to cognitive status Physical Exam Physical Exam: gen - thin, dysmorphic in appearance, coughing, wheezing, altered/lethargic mouth - MM modestly dry neck - no JVD heart - RRR, s1 s2, no murmur lungs - mild end-exp wheezes b/l, crackles R base, minimal rales L base, mild tachypnea noted abd - soft NT ND BS+ ext - no edema, pulses 2+ b/l, warm feet Results & Data Results & Data ([facility]) Vital Signs (Past 12 Hours) Vital Signs Temp Pulse Pulse Resp BP BP Pulse Ox 06/22/22 11:32 36.7 C 71 16 76/48 L 89/53 L 92 06/22/22 10:13 06/22/22 07:57 37.9 C H 98 H 18 112/62 92 06/22/22 07:30 99 H 06/22/22 02:42 36.9 C 90 18 111/64 97 O2 Del Method 06/22/22 11:32 Room Air 06/22/22 10:13 Room Air 06/22/22 07:57 Room Air 06/22/22 07:30 06/22/22 02:42 Room Air Laboratory Results Laboratory Results - last 24 hr 06/22/22 06/22/22 06/22/22 07:15 07:15 12:36 WBC 11.54 H RBC 3.36 L Hgb 10.1 L Hct 30.7 L MCV 91.4 MCH 30.1 MCHC 32.9 RDW Std Deviation 51.0 H RDW Coeff of [place]og[place] 15.3 H Plt Count 228 MPV 10.3 Immature Gran % (Auto) 0.6 Neut % (Auto) 78.6 Lymph % (Auto) 8.1 [place] % (Auto) 10.7 Eos % (Auto) 1.7 Baso % (Auto) 0.3 Neut # (Auto) 9.08 H Lymph # (Auto) 0.93 L [place] # (Auto) 1.23 H Eos # (Auto) 0.20 Baso # (Auto) 0.03 Immature Gran # (Auto) 0.07 H Sodium 137 Potassium 3.7 Chloride 110 H Carbon Dioxide 21 Anion Gap 6 BUN 7 Creatinine 0.59 L Est Cr Clr Drug Dosing 109.2 Est GFR ( Amer) 127.5 Est GFR (Non-Af Amer) 110.0 BUN/Creatinine Ratio 11.9 Glucose 104 H POC Glucose Calcium 8.4 L Random Cortisol Nasal Screen MRSA (PCR) Negative 06/22/22 06/22/22 12:43 21:39 WBC RBC Hgb Hct MCV MCH MCHC RDW Std Deviation RDW Coeff of [place] Plt Count MPV Immature Gran % (Auto) Neut % (Auto) Lymph % (Auto) [place] % (Auto) Eos % (Auto) Baso % (Auto) Neut # (Auto) Lymph # (Auto) [place] # (Auto) Eos # (Auto) Baso # (Auto) Immature Gran # (Auto) Sodium Potassium Chloride Carbon Dioxide Anion Gap BUN Creatinine Est Cr Clr Drug Dosing Est GFR ( Amer) Est GFR (Non-Af Amer) BUN/Creatinine Ratio Glucose POC Glucose 134 H Calcium Random Cortisol 9.86 Nasal Screen MRSA (PCR) PG Care Time/CCT Total # of Minutes Spent Total Time Spent with Patient: Total time spent is greater than 50% in coordination of care (as documented) at patient's floor/unit and/or counseling patient: Coding Level of Care Code 39904 Subseq Hosp Care Lvl 3 Diagnoses Aspiration pneumonia J69.0 Sepsis A41.9 Hypotension I95.9 Esophageal abnormality K22.9 Cerebral palsy G80.9 Paroxysmal atrial tachycardia I47.1 Epilepsy G40.909 GERD (gastroesophageal reflux disease) K21.9 PAD (peripheral artery disease) I73.9 Severe intellectual disabilities F72 DVT prophylaxis Z29.9
[2022-06-22] MEDS ORDERED: SODIUM CHLORIDE 0.9% 1000ML 500 ML IV ONE (12:46)
[2022-06-22] MEDS: NSS + 20MEQ KCL 20 MEQ/1,000 ML BAG IV SCH (13:22)
[2022-06-22] MEDS: LEVALBUTEROL 1.25MG/0.5ML NEB NEB SCH ×3 (14:30→20:04)
[2022-06-22] MEDS: dexAMETHasone 6 MG in SYRINGE 0 ML IV SCH (14:55)
[2022-06-22] MEDS ORDERED: levETIRAcetam ORAL SOLN 100MG/ML PO SCH (21:00)
[2022-06-22] MEDS ORDERED: LEVALBUTEROL 1.25MG/0.5ML NEB NEB PRN (21:25)
--- NOTE | 2022-06-22 21:56 | Communication Note ---
Date of Service: June 22, 2022 Informed of concern about pocketing while administering medications with yogurt. Feels unsafe to administer any PO meds. Unsure if related to patient's increased drowsiness today. Patient did see speech therapy today and had been cleared with recommendations. Strict NPO home epilepsy meds: Keppra PO -> IV 1:1. divalproex ->valproate 1:1, but q6 instead of BID. topiramate: no IV equivalent home anxiety med ativan: 0.5mg PO BID umesh -> 0.25mg IV BID umesh. reduced especially in context of drowsiness
[2022-06-23] MEDS: NSS + 20MEQ KCL 20 MEQ/1,000 ML BAG IV SCH ×2 (00:39→09:53)
[2022-06-23] MEDS: PANTOprazole 40 MG in SYRINGE 0 ML IV SCH ×3 (00:39→21:55)
[2022-06-23] MEDS: levETIRAcetam 1,500 MG in 0.9 % SODIUM CHLORIDE 100 ML IV SCH ×3 (00:40→22:34)
[2022-06-23] MEDS: VALPROATE SOD 375 MG in DEXTROSE 5% 50 ML IV SCH ×5 (01:37→23:48)
[2022-06-23] MEDS: dexAMETHasone 6 MG in SYRINGE 0 ML IV SCH ×2 (03:52→15:01)
[2022-06-23] MEDS: PIPERACILLIN/TAZOBACTAM 3.375 GM in DEXTROSE 5% 100 ML IV SCH ×3 (05:54→22:02)
[2022-06-23 07:36] LABS: Hematocrit (blood only) 29.9 % (40.1-51.0); Hemoglobin 9.8 g/dl (14.0-18.0); Mean Corpuscular Hgb Conc 32.8 g/dL (32.0-36.0); Mean Corpuscular Volume 91.4 fL (80.0-100.0); Mean Platelet Volume 10.4 fL (9.4-12.4); Platelet Count 227 K/uL (130-400); RDW Coefficient of Variation 15.2 % (11.5-14.5); RDW Standard Deviation 51.5 fL (36.4-46.3); Red Blood Count 3.27 M/uL (4.63-6.08); White Blood Count 11.78 K/ul (4.8-10.8)
[2022-06-23 08:03] LABS: Calcium 8.5 mg/dl (8.5-10.1); Creatinine Clr Calc Pharmacy 119.3 ml/min; Est GFR (African American) 132.3 ml/min; Est GFR (Non-African American) 114.1 ml/min
[2022-06-23 08:09] LABS: Basophils # (auto) 0.02 K/uL (0-0.2); Basophils % (auto) 0.2 %; Echinocytes 1+; Immature Granulocytes % (auto) 0.8 %; Lymphocytes # (auto) 0.75 K/uL (1.2-3.4); Lymphocytes % (auto) 6.4 %; Monocytes # (auto) 0.27 K/uL (0.24-0.82); Monocytes % (auto) 2.3 %; Neutrophils # (auto) 10.64 K/uL (1.4-6.5); Neutrophils % (auto) 90.3 %
[2022-06-23] MEDS: SUCRALFATE 1 GM/10 ML UDC PO SCH ×5 (08:44→22:05)
[2022-06-23] MEDS: LORazepam 0.25 MG in SYRINGE 0 ML IV SCH ×2 (09:05→21:55)
[2022-06-23] MEDS: DOXYCYCLINE HYCLATE 100 MG in DEXTROSE 5% 100 ML IV SCH ×2 (09:10→19:47)
[2022-06-23] MEDS: HEPARIN SOD 5,000 UNIT/0.5 ML VIAL SQ SCH ×2 (09:11→21:44)
--- NOTE | 2022-06-23 12:09 | XRay Report ---
XR chest 1V portable CLINICAL HISTORY: f/u aspiration pneumonia COMPARISON STUDY: Chest radiograph June 21, 2022. Chest CT May 02, 2022. FINDINGS: There is no pneumothorax. Small bilateral pleural fusions are noted. Bilateral airspace opa cities have significantly progressed. Interstitial thickening is again noted. Cardiomediastinal silho uette is stable. IMPRESSION: 1. Progression of extensive bilateral lower lobe consolidation suggestive of pneumonia or aspiration pneumonitis. 2. Interstitial thickening which favors pulmonary edema. 3. Small bilateral pleural effusions. ACT 112: Negative or not required by law. Electronically signed by: Marshal Xie M.D. 06/23/2022 12:07 PM
--- NOTE | 2022-06-23 12:15 | Hospitalist Progress Note ---
Date of Service June 23, 2022 Assessment & Plan (1) Aspiration pneumonia: Plan: Just completed 7+ day course of augmentin for pneumonia as outpatient -- was still on per aide in room on admission Despite such he did not improve. Ongoing RLL pneumonia on cxr at admission. Day #3 of IV zosyn. Add doxycycline for atypical coverage (started PM 06/22) MRSA swab negative . Prior +. If worsens, consider adding coverage Speech therapy -- asked for re-eval given concerns for pocketing overnight. Assessment unchanged. Did change to IV keppra to ensure getting doses/maintain seizure precautions --> Doesn't have true dysphagia and aspiration but instead a very tortuous esophagus which can lend itself to esophageal dysmotility. -- believe in intermediate but will need further evaluation, may benefit from [facility] for closer monitoring (aide in room last night reportedly fell asleep) Speech advising minced/moist diet and thin liquids. --> ordered for today Add bronchodilators - Xopenex/Atrovent nebs q6h due to concurrent wheezes. Added hypertonic saline to nebs BID Cortisol is relatively low given his illness - 9.86-> this, coupled with wheezing -- added dexamethasone 6mg IV BID. However suspect some degree of volume overload on exam 06/22 IVF + 20meq @ 100cc/hr prior, decreased to 60cc this morning as NPO but stopped completely and will monitor CXR in AM. Will give lasix 10mg IV x 1 May need dose of Lasix with the steroids as well custodial aides report no COVID or other respiratory illnesses at the intermediate at this time. With that said if he fails to improve or worsens - repeat COVID test warranted if not continued improvement tomorrow (2) Sepsis: Plan: 2nd to #1 Low BPs today HOLD propranolol NSS bolus 500cc x 1 06/22, started NSS @ 100cc/hr -- volume overload on exam, IVF stopped Started on steroids -- dexamethasone 6mg IV BID Monitor blood cx -- ngtd, urine cx prelim <1000 colonies, no growth (3) Hypotension: Plan: hold propranolol cortisol level 9 - started dexamethasone additional IV fluid bolus, then maintenance -- stop IVF for now and monitor given congestion low BPs 2nd to #2 and inderal usage (4) Esophageal abnormality: Plan: h/o tortuous esophagus long-standing swallowing and esophageal issues from such cont PPI bid -- continue IV for now Speech consulted (5) Cerebral palsy: Plan: Per caregivers, baseline neurologic status is more alert than what he is currently demonstrating Smiles, laughs, will intermittently yell When feeling better, assist with transitions and likes to go around on his motorized wheelchair -- per aide in room hasn't been doing that for the month she's been with him and he likes to be in his recliner chair (6) Paroxysmal atrial tachycardia: Plan: history of such due to low BPs - HOLD Propranolol no arrhythmia seen since admission (7) Epilepsy: Plan: Continue depakote, keppra, ativan, and Topamax -- made the depakote, keppra, ativan IV for now -- if continue to tolerate PO through today consider switching back to PO for tomorrow Seizure precautions No seizure activity since admission (8) GERD (gastroesophageal reflux disease): Plan: Continue protonix and carafate (9) PAD (peripheral artery disease): Plan: continue aspirin (10) Severe intellectual disabilities: (11) DVT prophylaxis: Plan: has h/o upper GI bleed however, EGD 05/2022 with normal stomach/duodenum (done for grape food i mpaction) risk of DVT - given bedbound status - outweighs any risk of heparin SC thus start heparin 5000 BID - continue while inpatient Plan continued inpatient stay continue zosyn/doxycycline, consider adding vanco/repeat covid testing in AM pending improvement lasix IV x 1 for volume overload, monitor response check cxr in AM Admission and Anticipated Discharge Date Admission Date: June 21, 2022 Subjective eval around lunch, had breakfast episode of oral pocketing last evening, asked speech to see this AM, no change. can consider pureed but will monitor currently. stable on room air but lungs with bilateral rales in the bases and posterior lung jones. got cleaned up this AM, large BM Patient currently resting but awoken to name and turns back over. Underlying cerebral palsy. Current aide in room, Kelsey, has only been with patient for a month. Had previously had episodes of aspiration/impaction with grapes requiring endoscopic removal.Dsicussed continued broad spectrum abx, reduced IVF rate (100--> 60cc for now). Will continue the IV keppra to ensure no issues with seizures/not obtaining while inpatient. Aide stated possibly overnight patient aspirated at home (had just arranged aide to be at home with him) prior to admission but that he had been on Augmentin at that time. Review of Systems Review of Systems: All systems reviewed & are unremarkable except as noted in HPI & below Physical Exam Physical Exam: General: dysmorphic appearance, fatigued appearing but does awaken to name/stimuli, curls back over and falls asleep, nonverbal at baseline mouth- mmm, no tracheal deviation Resp: not tachypneic, on room air, bilateral rales/crackles in the bases with expiratory wheezing, 91% on room air CV: RRR, no m/r/g, trace b/l LE edema, pulses palpable GI: +BS, nontender ; no Damon Psych/Neuro: alert to voice/name, falls back asleep quickly, no facial droop, nonverbal/CP at baseline Results & Data Results & Data ([facility]) Vital Signs (Past 12 Hours) Vital Signs Temp Pulse Pulse Resp BP Pulse Ox O2 Del Method 06/23/22 11:37 36.0 C L 70 18 102/52 L 91 Room Air 06/23/22 07:58 36.1 C L 66 18 126/69 96 Room Air 06/23/22 07:52 Room Air 06/23/22 07:00 66 Laboratory Results 06/23/22 06/23/22 06/22/22 Range/Units 07:11 07:11 21:39 WBC 11.78 H (4.8-10.8) K/ul RBC 3.27 L (4.63-6.08) M/uL Hgb 9.8 L (14.0-18.0) g/dl Hct 29.9 L (40.1-51.0) % MCV 91.4 (80.0-100.0) fL MCH 30.0 (25.0-34.0) pg MCHC 32.8 (32.0-36.0) g/dL RDW Std Deviation 51.5 H (36.4-46.3) fL RDW Coeff of [place] 15.2 H (11.5-14.5) % Plt Count 227 (130-400) K/uL MPV 10.4 (9.4-12.4) fL Immature Gran % (Auto) 0.8 % Neut % (Auto) 90.3 % Lymph % (Auto) 6.4 % [place] % (Auto) 2.3 % Eos % (Auto) 0.0 % Baso % (Auto) 0.2 % Neut # (Auto) 10.64 H (1.4-6.5) K/uL Lymph # (Auto) 0.75 L (1.2-3.4) K/uL [place] # (Auto) 0.27 (0.24-0.82) K/uL Eos # (Auto) 0.00 (0-0.50) K/uL Baso # (Auto) 0.02 (0-0.2) K/uL Immature Gran # (Auto) 0.10 H (0.00-0.02) K/uL Echinocytes 1+ Sodium 141 (136-145) mmol/L Potassium 4.0 (3.5-5.1) mmol/L Chloride 116 H (98-107) mmol/L Carbon Dioxide 19 L (21-32) mmol/L Anion Gap 6 (3-11) BUN 7 (6-23) mg/dl Creatinine 0.54 L (0.6-1.4) mg/dl Est Cr Clr Drug Dosing 119.3 ml/min Est GFR ( Amer) 132.3 ml/min Est GFR (Non-Af Amer) 114.1 ml/min BUN/Creatinine Ratio 13.0 (10-20) Glucose 133 H (70-99(Fasting)) mg/dl POC Glucose 134 H (70-99) mg/dl Calcium 8.5 (8.5-10.1) mg/dl Diagnostic Findings Chest X-Ray 06/23/22 08:37 XR chest 1V portable CLINICAL HISTORY: f/u aspiration pneumonia COMPARISON STUDY: Chest radiograph June 21, 2022. Chest CT May 02, 2022. FINDINGS: There is no pneumothorax. Small bilateral pleural fusions are noted. Bilateral airspace opacities have significantly progressed. Interstitial thickening is again noted. Cardiomediastinal silhouette is stable. IMPRESSION: 1. Progression of extensive bilateral lower lobe consolidation suggestive of pneumonia or aspiration pneumonitis. 2. Interstitial thickening which favors pulmonary edema. 3. Small bilateral pleural effusions. ACT 112: Negative or not required by law. Electronically signed by: Marshal Xie M.D. 06/23/2022 12:07 PM PG Care Time/CCT Total # of Minutes Spent Total Time Spent with Patient: Total time spent is greater than 50% in coordination of care (as documented) at patient's floor/unit and/or counseling patient: Coding Level of Care Code 72070 Subseq Hosp Care Lvl 3 Diagnoses Aspiration pneumonia J69.0 Sepsis A41.9 Hypotension I95.9 Esophageal abnormality K22.9 Cerebral palsy G80.9 Paroxysmal atrial tachycardia I47.1 Epilepsy G40.909 GERD (gastroesophageal reflux disease) K21.9 PAD (peripheral artery disease) I73.9 Severe intellectual disabilities F72 DVT prophylaxis Z29.9
[2022-06-23] MEDS ORDERED: FUROSEMIDE INJ 20 MG/2 ML VIAL IV ONE (14:22)
[2022-06-23] MEDS: PROPRANOLOL HCL 10 MG TAB PO SCH ×2 (14:36→14:37)
[2022-06-23 18:20] LABS: Adenovirus PCR Not Detected (NotDetected); Bordetella parapertussis PCR Not Detected (NotDetected); Bordetella pertussis PCR Not Detected (NotDetected); Chlamydia pneumoniae PCR Not Detected (NotDetected); Coronavirus 229E PCR Not Detected (NotDetected); Coronavirus CoV-2 (COVID19)PCR Not Detected (NotDetected); Coronavirus HKU1 PCR Not Detected (NotDetected); Coronavirus NL63 PCR Not Detected (NotDetected); Coronavirus OC43PCR Not Detected (NotDetected); Human Metapneumovirus PCR Not Detected (NotDetected); Influenza A PCR Not Detected (NotDetected); Influenza B PCR Not Detected (NotDetected); Mycoplasma pneumoniae PCR Not Detected (NotDetected); Parainfluenza Virus 1 PCR Not Detected (NotDetected); Parainfluenza Virus 2 PCR Not Detected (NotDetected); Parainfluenza Virus 3 PCR Not Detected (NotDetected); Parainfluenza Virus 4 PCR Not Detected (NotDetected); Respiratory Syncytial VirusPCR Not Detected (NotDetected); Rhinovirus/Enterovirus PCR Not Detected (NotDetected)
[2022-06-23] MEDS: SODIUM CHLOR 7% 4 ML NEB NEB SCH (20:23)
[2022-06-23] MEDS: TOPIRAMATE 100 MG TAB PO SCH (22:06)
[2022-06-24] MEDS: PIPERACILLIN/TAZOBACTAM 3.375 GM in DEXTROSE 5% 100 ML IV SCH ×4 (05:46→21:08)
[2022-06-24] MEDS: dexAMETHasone 6 MG in SYRINGE 0 ML IV SCH (05:46)
[2022-06-24 06:08] LABS: Basophils # (auto) 0.03 K/uL (0-0.2); Basophils % (auto) 0.3 %; Eosinophils # (auto) 0.02 K/uL (0-0.50); Eosinophils % (auto) 0.2 %; Hematocrit (blood only) 30.4 % (40.1-51.0); Immature Granulocytes # (auto) 0.08 K/uL (0.00-0.02); Immature Granulocytes % (auto) 0.7 %; Lymphocytes # (auto) 2.17 K/uL (1.2-3.4); Lymphocytes % (auto) 20.1 %; Mean Corpuscular Hemoglobin 29.9 pg (25.0-34.0); Mean Corpuscular Hgb Conc 32.9 g/dL (32.0-36.0); Mean Corpuscular Volume 90.7 fL (80.0-100.0); Mean Platelet Volume 10.5 fL (9.4-12.4); Monocytes # (auto) 0.58 K/uL (0.24-0.82); Monocytes % (auto) 5.4 %; Neutrophils % (auto) 73.3 %; Platelet Count 265 K/uL (130-400); RDW Coefficient of Variation 15.2 % (11.5-14.5); RDW Standard Deviation 50.4 fL (36.4-46.3); Red Blood Count 3.35 M/uL (4.63-6.08); White Blood Count 10.78 K/ul (4.8-10.8)
[2022-06-24 06:26] LABS: BUN Creatinine Ratio 15.5 (10-20); Calcium 8.7 mg/dl (8.5-10.1); Creatinine Clr Calc Pharmacy 112.3 ml/min; Est GFR (African American) 128.4 ml/min; Est GFR (Non-African American) 110.8 ml/min; Magnesium 1.9 mg/dl (1.7-2.4); Potassium 3.4 mmol/L (3.5-5.1)
[2022-06-24] MEDS: VALPROATE SOD 375 MG in DEXTROSE 5% 50 ML IV SCH ×2 (06:35→11:29)
[2022-06-24] MEDS: SODIUM CHLOR 7% 4 ML NEB NEB SCH ×2 (07:03→19:56)
[2022-06-24] MEDS: DOXYCYCLINE HYCLATE 100 MG in DEXTROSE 5% 100 ML IV SCH ×2 (07:40→20:25)
[2022-06-24] MEDS: SUCRALFATE 1 GM/10 ML UDC PO SCH ×4 (07:43→20:33)
[2022-06-24] MEDS ORDERED: POTASSIUM CHLORIDE CRTAB 20 MEQ TABCR PO STA (08:23)
--- NOTE | 2022-06-24 08:27 | Hospitalist Progress Note ---
Date of Service June 24, 2022 Assessment & Plan (1) Aspiration pneumonia: Plan: Just completed 7+ day course of augmentin for pneumonia as outpatient -- was still on per aide in room on admission Despite such he did not improve. Ongoing RLL pneumonia on cxr at admission. Day #4 of IV zosyn. Add doxycycline for atypical coverage (started PM 06/22) MRSA swab negative . Prior +. If worsens, consider adding coverage --> improving with lasix 10mg IV x 1 on 06/23, repeat dose for this afternoon given continued congestion on imaging and exam but does appear improved WBC now wnl, despite steroid therapy Speech therapy -- asked for re-eval given concerns for pocketing overnight. Assessment unchanged. Did change to IV keppra to ensure getting doses/maintain seizure precautions --> Doesn't have true dysphagia and aspiration but instead a very tortuous esophagus which can lend itself to esophageal dysmotility. -- believe in detention but will need further evaluation, may benefit from retirement for closer monitoring (aide in room last night reportedly fell asleep) Speech advising minced/moist diet and thin liquids. --> ordered for today Add bronchodilators - Xopenex/Atrovent nebs q6h due to concurrent wheezes. Added hypertonic saline to nebs BID 06/23 -- continue Cortisol is relatively low given his illness - 9.86-> this, coupled with wheezing -- added dexamethasone 6mg IV BID. However suspect some degree of volume overload on exam 06/22 IVF + 20meq @ 100cc/hr prior, decreased to 60cc and discontinued, lasix 10mg IV x 1, repeat this afternoon with PO Kcl supplementation. Will change Keppra /Valproic back to PO Respiratory biofire obtained given group living situation --> NEGATIVE Will check BNP w/ AM labs (prior elevation this summer). If elevated, would check ECHO as no priors in system (2) Sepsis: Plan: 2nd to #1 Low BPs today HOLD propranolol NSS bolus 500cc x 1 06/22, started NSS @ 100cc/hr -- volume overload on exam, IVF stopped Started on steroids -- dexamethasone 6mg IV BID --> decrease to 2mg IV BID for now, decrease further as tolerated Monitor blood cx -- ngtd, urine cx prelim <1000 colonies, no growth (3) Hypotension: Plan: hold propranolol cortisol level 9 - started dexamethasone, decreased for today BPs stable/borderline at times but improved and stable with IV lasix and no further IVF Holding inderal as well -- consider discontinuing this mediation given HR lower normal as well low BPs 2nd to #2 and inderal usage (4) Esophageal abnormality: Plan: h/o tortuous esophagus long-standing swallowing and esophageal issues from such cont PPI bid -- continue IV for now, switch back to PO for tomorrow Speech consulted (5) Cerebral palsy: Plan: Per caregivers, baseline neurologic status is more alert than what he is currently demonstrating Smiles, laughs, will intermittently yell When feeling better, assist with transitions and likes to go around on his motorized wheelchair -- per aide in room hasn't been doing that for the month she's been with him and he likes to be in his recliner chair More awake/alert --> wanting to get into chair today per nursing (6) Paroxysmal atrial tachycardia: Plan: history of such due to low BPs - HOLD Propranolol no arrhythmia seen since admission , HR has been sinus in the 50-60s off this medication --> consider discontinuing if continues without arrhythmia on monitor (7) Epilepsy: Plan: Continue depakote, keppra, ativan, and Topamax -- made the depakote, keppra, ativan IV for now -- if continue to tolerate PO through today consider switching back to PO this evening Seizure precautions No seizure activity since admission (8) GERD (gastroesophageal reflux disease): Plan: Continue protonix and carafate (9) PAD (peripheral artery disease): Plan: continue aspirin (10) Severe intellectual disabilities: (11) DVT prophylaxis: Plan: has h/o upper GI bleed however, EGD 05/2022 with normal stomach/duodenum (done for grape food impaction) risk of DVT - given bedbound status - outweighs any risk of heparin SC thus start heparin 5000 BID - continue while inpatient Plan continued inpatient stay continue abx, repeat dose lasix/PO Kcl this afternoon change IV seizure medications to PO to prevent excess volume decrease steroids repeat CXR in AM Admission and Anticipated Discharge Date Admission Date: June 21, 2022 Subjective Patient evaluated this morning, much improved in alertness, tolerating medications better. Discussed with aide reaching out to Skills and decreasing amt of pills at discharge to help with aspirations. She stated patient little sleepy after getting cleaned up but much improved. Did note possibly some spit up this morning after x-ray but suspect degree of regurgitation, patient nontender on exam. Breathing stable, still with coarse Rhonchi in bases but improved, less wheezing. Will attempt to change medications to PO for later today vs tomorrow and monitor tolerance. Anticipate if continued improvement possible d/c in next 48 hours depending on patient response to treatment. Review of Systems Review of Systems: All systems reviewed & are unremarkable except as noted in HPI & below Physical Exam Physical Exam: General: dysmorphic appearance, fatigued appearing but does awaken to name/stimuli and much more awake during encounter, more restless and moving around per aide at bedside, wanting to get to his chair, nonverbal at baseline mouth- mmm, no tracheal deviation Resp: not tachypneic, on room air, bilateral rales/crackles in the bases with expiratory wheezing (IMPROVED), decreased in base on the RIGHT, 98% on room air CV: RRR, no m/r/g, trace b/l LE edema improved, pulses palpable GI: +BS, nontender ; no Damon Psych/Neuro: alert to voice/name, making noises, nonverbal/CP at baseline Results & Data Results & Data ([facility]) Vital Signs (Past 12 Hours) Vital Signs Temp Pulse Pulse Resp BP Pulse Ox O2 Del Method 06/24/22 07:23 Room Air 06/24/22 07:03 59 L 18 98 Room Air 06/24/22 07:00 59 L 06/24/22 06:17 36.3 C L 67 20 118/70 93 Room Air 06/24/22 02:50 36.4 C L 68 16 104/58 L 95 Room Air 06/23/22 22:15 72 06/24/22 00:45 Room Air 06/23/22 22:56 37.1 C 59 L 16 96/54 L 94 Room Air Laboratory Results 06/24/22 06/24/22 06/23/22 Range/Units 05:37 05:37 17:20 WBC 10.78 (4.8-10.8) K/ul RBC 3.35 L (4.63-6.08) M/uL Hgb 10.0 L (14.0-18.0) g/dl Hct 30.4 L (40.1-51.0) % MCV 90.7 (80.0-100.0) fL MCH 29.9 (25.0-34.0) pg MCHC 32.9 (32.0-36.0) g/dL RDW Std Deviation 50.4 H (36.4-46.3) fL RDW Coeff of [place] 15.2 H (11.5-14.5) % Plt Count 265 (130-400) K/uL MPV 10.5 (9.4-12.4) fL Immature Gran % (Auto) 0.7 % Neut % (Auto) 73.3 % Lymph % (Auto) 20.1 % [place] % (Auto) 5.4 % Eos % (Auto) 0.2 % Baso % (Auto) 0.3 % Neut # (Auto) 7.90 H (1.4-6.5) K/uL Lymph # (Auto) 2.17 (1.2-3.4) K/uL [place] # (Auto) 0.58 (0.24-0.82) K/uL Eos # (Auto) 0.02 (0-0.50) K/uL Baso # (Auto) 0.03 (0-0.2) K/uL Immature Gran # (Auto) 0.08 H (0.00-0.02) K/uL Sodium 140 (136-145) mmol/L Potassium 3.4 L (3.5-5.1) mmol/L Chloride 114 H (98-107) mmol/L Carbon Dioxide 20 L (21-32) mmol/L Anion Gap 6 (3-11) BUN 9 (6-23) mg/dl Creatinine 0.58 L (0.6-1.4) mg/dl Est Cr Clr Drug Dosing 112.3 ml/min Est GFR ( Amer) 128.4 ml/min Est GFR (Non-Af Amer) 110.8 ml/min BUN/Creatinine Ratio 15.5 (10-20) Glucose 85 (70-99(Fasting)) mg/dl Calcium 8.7 (8.5-10.1) mg/dl Magnesium 1.9 (1.7-2.4) mg/dl Adenovirus (PCR) Not Detected (NotDetected) B. pertussis DNA (PCR) Not Detected (NotDetected) B.parapertussis DNA PCR Not Detected (NotDetected) C. pneumoniae DNA (PCR) Not Detected (NotDetected) Coronavirus OC43 (PCR) Not Detected (NotDetected) Coronavirus HKU1 (PCR) Not Detected (NotDetected) Coronavirus 229E (PCR) Not Detected (NotDetected) SARS-CoV-2 (PCR) Not Detected (NotDetected) Coronavirus NL63 (PCR) Not Detected (NotDetected) Human Metapneumovir PCR Not Detected (NotDetected) Influenza Type A (PCR) Not Detected (NotDetected) Influenza Type B (PCR) Not Detected (NotDetected) M. pneumoniae (PCR) Not Detected (NotDetected) Parainfluenza 1 (PCR) Not Detected (NotDetected) Parainfluenza 2 (PCR) Not Detected (NotDetected) Parainfluenza 3 (PCR) Not Detected (NotDetected) Parainfluenza 4 (PCR) Not Detected (NotDetected) RSV (PCR) Not Detected (NotDetected) Entero/Rhino (PCR) Not Detected (NotDetected) Diagnostic Findings Chest X-Ray 06/24/22 06:00 XR chest 1V not portable HISTORY: f/u aspiration pneumonia COMPARISON: Chest 06/23/2022. FINDINGS: No pneumothorax. There is a small right pleural effusion which is increased in size. Right mid to lower lung zone airspace opacities are again noted and likely represents a pneumonia. Patchy left basilar densities persist. The heart remains enlarged. There is mild interstitial pulmonary edema, unchanged. IMPRESSION: 1. Mild interstitial pulmonary edema with increase in size in the small right pleural effusion. 2. Bilateral lower lobe airspace opacities persist and likely represent a pneumonia. ACT 112: Negative or not required by law. Electronically signed by: Joe Fleming M.D. 06/24/2022 1:08 PM PG Care Time/CCT Total # of Minutes Spent Total Time Spent with Patient: Total time spent is greater than 50% in coordination of care (as documented) at patient's floor/unit and/or counseling patient: Coding Level of Care Code 73886 Subseq Hosp Care Lvl 3 Diagnoses Aspiration pneumonia J69.0 Sepsis A41.9 Hypotension I95.9 Esophageal abnormality K22.9 Cerebral palsy G80.9 Paroxysmal atrial tachycardia I47.1 Epilepsy G40.909 GERD (gastroesophageal reflux disease) K21.9 PAD (peripheral artery disease) I73.9 Severe intellectual disabilities F72 DVT prophylaxis Z29.9
[2022-06-24] MEDS: HEPARIN SOD 5,000 UNIT/0.5 ML VIAL SQ SCH ×2 (09:11→20:30)
[2022-06-24] MEDS: TOPIRAMATE 100 MG TAB PO SCH (09:11)
[2022-06-24] MEDS: PANTOprazole 40 MG in SYRINGE 0 ML IV SCH ×2 (09:11→20:32)
[2022-06-24] MEDS ORDERED: POTASSIUM CHLORIDE 20 MEQ/15 ML UDC PO STA (09:20)
[2022-06-24] MEDS: LORazepam 0.25 MG in SYRINGE 0 ML IV SCH ×2 (09:44→20:32)
[2022-06-24] MEDS: SERTRALINE HCL 50 MG TABLET PO SCH (09:44)
[2022-06-24] MEDS: levETIRAcetam 1,500 MG in 0.9 % SODIUM CHLORIDE 100 ML IV SCH (11:11)
[2022-06-24] MEDS ORDERED: POTASSIUM CHLORIDE 20 MEQ/15 ML UDC PO ONE (13:00)
[2022-06-24] MEDS ORDERED: FUROSEMIDE INJ 20 MG/2 ML VIAL IV ONE (13:00)
--- NOTE | 2022-06-24 13:10 | XRay Report ---
XR chest 1V not portable HISTORY: f/u aspiration pneumonia COMPARISON: Chest 06/23/2022. FINDINGS: No pneumothorax. There is a small right pleural effusion which is increased in size. Right mid to lower lung zone airspace opacities are again noted and likely represents a pneumonia. Patchy l eft basilar densities persist. The heart remains enlarged. There is mild interstitial pulmonary edema , unchanged. IMPRESSION: 1. Mild interstitial pulmonary edema with increase in size in the small right pleural effusion. 2. Bilateral lower lobe airspace opacities persist and likely represent a pneumonia. ACT 112: Negative or not required by law. Electronically signed by: Joe Fleming M.D. 06/24/2022 1:08 PM
[2022-06-24] MEDS: dexAMETHasone 2 MG in SYRINGE 0 ML IV SCH (15:13)
[2022-06-24] MEDS: DIVALPROEX SODIUM SPRINKLE/DEL-REL 125 MG CAP PO SCH (20:29)
[2022-06-24] MEDS: levETIRAcetam ORAL SOLN 100MG/ML PO SCH (20:31)
[2022-06-25] MEDS: dexAMETHasone 2 MG in SYRINGE 0 ML IV SCH ×2 (01:10→13:16)
[2022-06-25] MEDS: PIPERACILLIN/TAZOBACTAM 3.375 GM in DEXTROSE 5% 100 ML IV SCH ×4 (03:20→21:58)
[2022-06-25] MEDS: SODIUM CHLOR 7% 4 ML NEB NEB SCH ×2 (06:52→19:59)
[2022-06-25 07:22] LABS: Hemoglobin 9.4 g/dl (14.0-18.0); Mean Corpuscular Hemoglobin 29.5 pg (25.0-34.0); Mean Corpuscular Hgb Conc 32.4 g/dL (32.0-36.0); Mean Corpuscular Volume 90.9 fL (80.0-100.0); Mean Platelet Volume 10.4 fL (9.4-12.4); Platelet Count 283 K/uL (130-400); RDW Coefficient of Variation 15.9 % (11.5-14.5); RDW Standard Deviation 52.3 fL (36.4-46.3); Red Blood Count 3.19 M/uL (4.63-6.08); White Blood Count 9.31 K/ul (4.8-10.8)
[2022-06-25 07:38] LABS: BUN Creatinine Ratio 22.4 (10-20); Calcium 8.4 mg/dl (8.5-10.1); Creatinine Clr Calc Pharmacy 113.4 ml/min; Est GFR (African American) 128.4 ml/min; Est GFR (Non-African American) 110.8 ml/min; Magnesium 1.7 mg/dl (1.7-2.4); Potassium 3.8 mmol/L (3.5-5.1)
[2022-06-25] MEDS: SUCRALFATE 1 GM/10 ML UDC PO SCH ×4 (08:07→20:49)
[2022-06-25] MEDS: DIVALPROEX SODIUM SPRINKLE/DEL-REL 125 MG CAP PO SCH ×2 (08:08→20:50)
[2022-06-25] MEDS: HEPARIN SOD 5,000 UNIT/0.5 ML VIAL SQ SCH ×2 (08:08→20:50)
[2022-06-25] MEDS: levETIRAcetam ORAL SOLN 100MG/ML PO SCH ×2 (08:08→20:49)
[2022-06-25] MEDS: SERTRALINE HCL 50 MG TABLET PO SCH (08:08)
--- NOTE | 2022-06-25 08:10 | Hospitalist Progress Note ---
Date of Service June 25, 2022 Assessment & Plan (1) Aspiration pneumonia: Plan: Just completed 7+ day course of augmentin for pneumonia as outpatient -- was still on per aide in room on admission Despite such he did not improve. Ongoing RLL pneumonia on cxr at admission. IV zosyn. started 06/22 Added doxycycline for atypical coverage (started PM 06/22) MRSA swab negative . Prior +. If worsens, consider adding coverage --> improving with lasix 10mg IV x 1 on 06/23, repeat dose for this afternoon given continued congestion on imaging and exam but does appear improved WBC now wnl, despite steroid therapy Speech therapy -- asked for re-eval given concerns for pocketing overnight. Assessment unchanged. Did change to IV keppra to ensure getting doses/maintain seizure precautions --> Doesn't have true dysphagia and aspiration but instead a very tortuous esophagus which can lend itself to esophageal dysmotility. -- believe in correction but will need further evaluation, may benefit from [facility] for closer monitoring (aide in room last night reportedly fell asleep) Speech advising minced/moist diet and thin liquids. --> ordered for today Add bronchodilators - Xopenex/Atrovent nebs q6h due to concurrent wheezes. Added hypertonic saline to nebs BID 06/23 -- continue Cortisol is relatively low given his illness - 9.86-> this, coupled with wheezing -- added dexamethasone 6mg IV BID. However suspect some degree of volume overload on exam 06/22 IVF + 20meq @ 100cc/hr prior, decreased to 60cc and discontinued, lasix 10mg IV x 1, repeat this afternoon with PO Kcl supplementation. Will change Keppra/Valproic back to PO Respiratory biofire obtained given group living situation --> NEGATIVE Will check BNP w/ AM labs (prior elevation this summer). If elevated, would check ECHO as no priors in system (2) Sepsis: Plan: 2nd to #1 Low BPs today HOLD propranolol NSS bolus 500cc x 1 06/22, started NSS @ 100cc/hr -- volume overload on exam, IVF stopped Started on steroids -- dexamethasone 6mg IV BID --> decrease to 2mg IV BID for now, decrease further as tolerated Monitor blood cx -- ngtd, urine cx prelim <1000 colonies, no growth (3) Hypotension: Plan: hold propranolol cortisol level 9 - started dexamethasone, decreased for today BPs stable/borderline at times but improved and stable with IV lasix and no further IVF Holding inderal as well -- consider discontinuing this mediation given HR lower normal as well low BPs 2nd to #2 and inderal usage (4) Esophageal abnormality: Plan: h/o tortuous esophagus long-standing swallowing and esophageal issues from such cont PPI bid -- continue IV for now, switch back to PO for tomorrow Speech consulted (5) Cerebral palsy: Plan: Per caregivers, baseline neurologic status is more alert than what he is currently demonstrating Smiles, laughs, will intermittently yell When feeling better, assist with transitions and likes to go around on his motorized wheelchair -- per aide in room hasn't been doing that for the month she's been with him and he likes to be in his recliner chair More awake/alert --> wanting to get into chair today per nursing (6) Paroxysmal atrial tachycardia: Plan: history of such due to low BPs - HOLD Propranolol no arrhythmia seen since admission , HR has been sinus in the 50-60s off this medication --> consider discontinuing if continues without arrhythmia on monitor (7) Epilepsy: Plan: Continue depakote, keppra, ativan, and Topamax -- made the depakote, keppra, ativan IV for now -- if continue to tolerate PO through today consider switching back to PO this evening Seizure precautions No seizure activity since admission (8) GERD (gastroesophageal reflux disease): Plan: Continue protonix and carafate (9) PAD (peripheral artery disease): Plan: continue aspirin (10) Severe intellectual disabilities: (11) DVT prophylaxis: Plan: has h/o upper GI bleed however, EGD 05/2022 with normal stomach/duodenum (done for grape food impaction) risk of DVT - given bedbound status - outweighs any risk of heparin SC thus start heparin 5000 BID - continue while inpatient Plan continued inpatient stay continue abx, repeat dose lasix/PO Kcl this afternoon change IV seizure medications to PO to prevent excess volume decrease steroids repeat CXR in AM Admission and Anticipated Discharge Date Admission Date: June 21, 2022 Results & Data Results & Data ([facility]) Vital Signs (Past 12 Hours) Vital Signs Temp Pulse Pulse Resp BP BP Pulse Ox 06/25/22 07:50 06/25/22 07:54 98.6 F 67 20 127/67 99 06/25/22 07:00 64 06/25/22 06:53 88 20 94 06/25/22 03:23 98.6 F 83 18 101/59 L 06/24/22 22:56 97.0 F L 75 16 99/59 L 94 06/24/22 22:12 75 06/24/22 20:37 98.2 F 74 18 105/52 L 92 O2 Del Method 06/25/22 07:50 Room Air 06/25/22 07:54 Room Air 06/25/22 07:00 06/25/22 06:53 Room Air 06/25/22 03:23 06/24/22 22:56 Room Air 06/24/22 22:12 06/24/22 20:37 Room Air PG Care Time/CCT Total # of Minutes Spent Total Time Spent with Patient: Total time spent is greater than 50% in coordination of care (as documented) at patient's floor/unit and/or counseling patient: Coding Diagnoses Aspiration pneumonia J69.0 Sepsis A41.9 Hypotension I95.9 Esophageal abnormality K22.9 Cerebral palsy G80.9 Paroxysmal atrial tachycardia I47.1 Epilepsy G40.909 GERD (gastroesophageal reflux disease) K21.9 PAD (peripheral artery disease) I73.9 Severe intellectual disabilities F72 DVT prophylaxis Z29.9
[2022-06-25] MEDS: PANTOprazole 40 MG in SYRINGE 0 ML IV SCH ×2 (08:18→20:46)
[2022-06-25] MEDS: DOXYCYCLINE HYCLATE 100 MG in DEXTROSE 5% 100 ML IV SCH (08:18)
[2022-06-25] MEDS: LORazepam 0.25 MG in SYRINGE 0 ML IV SCH ×2 (08:23→20:49)
--- NOTE | 2022-06-25 08:25 | Hospitalist Progress Note ---
Date of Service June 25, 2022 Assessment & Plan (1) Aspiration pneumonia: Plan: Just completed 7+ day course of Augmentin for pneumonia as outpatient -- was still on abx per aide in room on admission Despite such he did not improve. Ongoing RLL pneumonia on cxr at admission. Respiratory biofire obtained given group living situation --> NEGATIVE Day #5 of IV zosyn -- would complete 7 days Add doxycycline for atypical coverage (started PM 06/22) MRSA swab negative . Prior +. If worsens, consider adding coverage --> improving with lasix 10mg IV x 1 on 06/23, repeat dose for this afternoon given continued congestion on imaging and exam but does appear improved WBC now wnl, despite steroid therapy. Afebrile Speech therapy -- asked for re-eval given concerns for pocketing overnight. Assessment unchanged. Did change to IV Keppra to ensure getting doses/maintain seizure precautions --> Doesn't have true dysphagia and aspiration but instead a very tortuous esophagus which can lend itself to esophageal dysmotility. -- believe in intermediate but will need further evaluation, may benefit from fpc for closer monitoring (aide in room 2 nights ago reportedly fell asleep when he had aspiration event) Speech advising minced/moist diet and thin liquids Bronchodilators - Xopenex/Atrovent nebs q6h due to concurrent wheezes. Added hypertonic saline to nebs BID 06/23 -- continue Cortisol is relatively low given his illness - 9.86-> this, coupled with wheezing -- added dexamethasone 6mg IV BID. However suspect some degree of volume overload on exam 06/22 IVF + 20meq @ 100cc/hr 06/22, decreased to 60cc AM 06/23 and discontinued, lasix 10mg IV x 1 for volume overload Changed Keppra/Valproic back to PO to avoid excess IVF changed Decadron to 2mg IV BID -- BPs stable with lasix as well and will decrease further for tomorrow if BPs tolerating Given additional Lasix 20mg this morning CXR unchanged, checked BNP (elevated), obtaining ECHO Increased Lasix to 20mg BID -- Cr has remained stable Asked CM to look into obtaining POLST form for patient given no family/continued admissions Did have lengthy discussion with aide in room who has been with patient for ~ 2 years. Endorses he likes chips/snacks, they are his only source of carley in life. Discussed permissive aspiration/possible POLST form to deliniate wishes if issues recur. She was having difficult time with understanding why this keeps happening. She did note multiple hospitalizations and maybe some initial good info regarding diet relayed but then not again in subsequent possible. Did discussed 2 admissions for grape impaction and clearly dietary restrictions not being followed. Would need to avoid foods like that/hot dogs/etc....but may be beneficial for POLST as stated to keep patient goals focused on comfort. Ideally would benefit from SNF for closer monitoring/etc in this situation but patient does appear to enjoy current aide and she states they are very interactive with him Also discussed limiting some of his medications Encouraged ambulation in his chair in the hallways for mood today (2) Sepsis: Plan: 2nd to #1 Low BPs today HOLD propranolol IVF ordered, stopped for volume overload on exam Decadron decreased, lasix initiated BPs stable with decreased steroids and increased lasix Urine culture FINAL no growth BCx NGTD -- monitor (3) Hypotension: Plan: hold propranolol cortisol level 9 - started dexamethasone, decreased for today BPs stable/borderline at times but improved and stable with IV lasix and no further IVF Holding inderal as well -- consider discontinuing this mediation given HR lower normal as well -- stable in 60-70s on telemetry overnight suspect related to infection, but also possible from volume overload. ECHO to be obtained as above, elevated BNP. Improving w/ diuretics (4) Esophageal abnormality: Plan: h/o tortuous esophagus long-standing swallowing and esophageal issues from such cont PPI bid -- continue IV for now, switch back to PO for tomorrow Speech consulted (5) Cerebral palsy: Plan: Per caregivers, baseline neurologic status is more alert than what he is currently demonstrating Smiles, laughs, will intermittently yell When feeling better, assist with transitions and likes to go around on his motorized wheelchair -- per aide in room hasn't been doing that for the month she's been with him and he likes to be in his recliner chair More awake/alert --> wanting to get into chair and moving around a lot better (6) Paroxysmal atrial tachycardia: Plan: history of such due to low BPs - HOLD Propranolol no Arrhythmia seen since admission, HR has been sinus in the 50-60s off this medication, now in the 60-70s this morning --> consider discontinuing if continues without arrhythmia on monitor (7) Epilepsy: Plan: Continued depakote, keppra, ativan, and -- made the depakote, keppra, ativan IV for now , changed back to PO and tolerating Topamax on hold for borderline BPS, no seizure activity since off of this medication Consider discontinuing the topamax? Maintain seizure precautions -- no witnessed since admission (8) GERD (gastroesophageal reflux disease): Plan: Continue protonix and carafate continue to monitor mag (9) PAD (peripheral artery disease): Plan: continue aspirin (10) Severe intellectual disabilities: (11) DVT prophylaxis: Plan: has h/o upper GI bleed however, EGD 05/2022 with normal stomach/duodenum (done for grape food impaction) risk of DVT - given bedbound status - outweighs any risk of heparin SC thus start heparin 5000 BID - continue while inpatient no bleeding reported but will check fecal occult. hgb stable but suspect from volume overload . monitor could also be induced by the IV zosyn CBC in AM Plan continued inpatient stay decreased decadron, increased lasix continue zosyn/doxycycline for today -- would complete course inpatient to ensure getting full 7 days and avoid pocketing/crushing and having patient not get adequate treatment Obtain ECHO working on seeing if obtaining a POLST possible at intermediate given no family aide 06/25 at bedside with Donny for ~2 years. Would ideally like specific laid out instructions for at discharge to ensure compliance with plan Admission and Anticipated Discharge Date Admission Date: June 21, 2022 Subjective Patient evaluated this morning with aide at bedside, continues to improve discussed reasoning why continues to occur, anatomical, oral hygiene, risk for aspiration. discussed possible permissive aspiration/POLST form and CM looking into logistics for pediatric acute care unit nurse states patient loves to snack/chips/etc and no other real joys at home discussed if goals are for comfort we may be able to make adjustments but that he is on a minced/moist diet currently and wanted to avoid changing to pureed to limit his choices/agreeableness to eating/ continues to move bowels, BP stable, continues diuresis aide asked for outlined instructions at d/c -- discussed I'm on over the weekend and will ensure we review and have written instructions for discharge back to intermediate. Review of Systems Review of Systems: All systems reviewed & are unremarkable except as noted in HPI & below Physical Exam Physical Exam: General: dysmorphic appearance, improvement in energy/interaction, making noises, moving around and pulling at things, much more alert compared to two days ago, chronically ill appearing mouth- mmm, no tracheal deviation Resp: not tachypneic, on room air, bilateral rales/crackles in the bases with expiratory wheezing (IMPROVED from 2 days ago, about the same today), decreased in base on the RIGHT, 98% on room air CV: RRR, slightly quiet HS, no m/r/g, trace b/l LE edema improved, pulses palpable GI: +BS, nontender ; no Damon Psych/Neuro: alert to voice/name, making noises, nonverbal/CP at baseline, pulling at sheets in bed Results & Data Results & Data ([facility]) Vital Signs (Past 12 Hours) Vital Signs Temp Pulse Pulse Resp BP BP Pulse Ox 06/25/22 07:50 06/25/22 07:54 37.0 C 67 20 127/67 99 06/25/22 07:00 64 06/25/22 06:53 88 20 94 06/25/22 03:23 37.0 C 83 18 101/59 L 06/24/22 22:56 36.1 C L 75 16 99/59 L 94 06/24/22 22:12 75 06/24/22 20:37 36.8 C 74 18 105/52 L 92 O2 Del Method 06/25/22 07:50 Room Air 06/25/22 07:54 Room Air 06/25/22 07:00 06/25/22 06:53 Room Air 06/25/22 03:23 06/24/22 22:56 Room Air 06/24/22 22:12 06/24/22 20:37 Room Air Laboratory Results 06/25/22 06/25/22 06/25/22 Range/Units 06:49 06:49 06:49 WBC 9.31 (4.8-10.8) K/ul RBC 3.19 L (4.63-6.08) M/uL Hgb 9.4 L (14.0-18.0) g/dl Hct 29.0 L (40.1-51.0) % MCV 90.9 (80.0-100.0) fL MCH 29.5 (25.0-34.0) pg MCHC 32.4 (32.0-36.0) g/dL RDW Std Deviation 52.3 H (36.4-46.3) fL RDW Coeff of [place] 15.9 H (11.5-14.5) % Plt Count 283 (130-400) K/uL MPV 10.4 (9.4-12.4) fL Sodium 141 (136-145) mmol/L Potassium 3.8 (3.5-5.1) mmol/L Chloride 115 H (98-107) mmol/L Carbon Dioxide 19 L (21-32) mmol/L Anion Gap 7 (3-11) BUN 13 (6-23) mg/dl Creatinine 0.58 L (0.6-1.4) mg/dl Est Cr Clr Drug Dosing 113.4 ml/min Est GFR ( Amer) 128.4 ml/min Est GFR (Non-Af Amer) 110.8 ml/min BUN/Creatinine Ratio 22.4 H (10-20) Glucose 101 H (70-99(Fasting)) mg/dl Calcium 8.4 L (8.5-10.1) mg/dl Magnesium 1.7 (1.7-2.4) mg/dl B-Natriuretic Peptide 303 H (0-100) pg/ml Diagnostic Findings Chest X-Ray 06/24/22 06:00 XR chest 1V not portable HISTORY: f/u aspiration pneumonia COMPARISON: Chest 06/23/2022. FINDINGS: No pneumothorax. There is a small right pleural effusion which is increased in size. Right mid to lower lung zone airspace opacities are again noted and likely represents a pneumonia. Patchy left basilar densities persist. The heart remains enlarged. There is mild interstitial pulmonary edema, unchanged. IMPRESSION: 1. Mild interstitial pulmonary edema with increase in size in the small right pleural effusion. 2. Bilateral lower lobe airspace opacities persist and likely represent a pne umonia. ACT 112: Negative or not required by law. Electronically signed by: Joe Fleming M.D. 06/24/2022 1:08 PM Chest X-Ray 06/25/22 06:00 XR chest 1V portable HISTORY: Shortness of breath. COMPARISON: Chest 06/24/2022. FINDINGS: No pneumothorax. The cardiac silhouette remains enlarged. There is pulmonary edema, a small right pleural effusion, and right basilar densities. This is similar to the prior study. Probable trace left pleural effusion. IMPRESSION: No change in the pulmonary edema, small right pleural effusion, and right basilar densities. ACT 112: Negative or not required by law. Electronically signed by: Joe Fleming M.D. 06/25/2022 12:02 PM PG Care Time/CCT Total # of Minutes Spent Total Time Spent with Patient: Total time spent is greater than 50% in coordination of care (as documented) at patient's floor/unit and/or counseling patient: Coding Level of Care Code 74731 Subseq Hosp Care Lvl 3 Diagnoses Aspiration pneumonia J69.0 Sepsis A41.9 Hypotension I95.9 Esophageal abnormality K22.9 Cerebral palsy G80.9 Paroxysmal atrial tachycardia I47.1 Epilepsy G40.909 GERD (gastroesophageal reflux disease) K21.9 PAD (peripheral artery disease) I73.9 Severe intellectual disabilities F72 DVT prophylaxis Z29.9
[2022-06-25] MEDS ORDERED: MAGNESIUM SULFATE / D5W 1 GM/100 ML BAG IV ONE (08:45)
[2022-06-25] MEDS ORDERED: FUROSEMIDE 20 MG TAB PO SCH (09:00)
[2022-06-25 11:02] LABS: Ferritin 28.7 ng/ml (8-388)
--- NOTE | 2022-06-25 12:04 | XRay Report ---
XR chest 1V portable HISTORY: Shortness of breath. COMPARISON: Chest 06/24/2022. FINDINGS: No pneumothorax. The cardiac silhouette remains enlarged. There is pulmonary edema, a small right pleural effusion, and right basilar densities. This is similar to the prior study. Probable tr francesco left pleural effusion. IMPRESSION: No change in the pulmonary edema, small right pleural effusion, and right basilar densities. ACT 112: Negative or not required by law. Electronically signed by: Joe Fleming M.D. 06/25/2022 12:02 PM
[2022-06-25] MEDS ORDERED: IRON SUCROSE 200 MG in 0.9 % SODIUM CHLORIDE 100 ML IV ONE (12:46)
--- NOTE | 2022-06-25 13:03 | XCELERA ---
[id number]
[2022-06-25] MEDS: DOXYCYCLINE HYCLATE 100 MG CAP PO SCH (20:50)
[2022-06-25] MEDS: FUROSEMIDE 20 MG TAB PO SCH (20:50)
[2022-06-26] MEDS: dexAMETHasone 2 MG in SYRINGE 0 ML IV SCH ×2 (01:53→13:48)
[2022-06-26] MEDS: PIPERACILLIN/TAZOBACTAM 3.375 GM in DEXTROSE 5% 100 ML IV SCH ×3 (04:07→17:15)
--- NOTE | 2022-06-26 04:27 | Communication Note ---
Date of Service: June 26, 2022 Notified by patient's RN that he was becoming increasingly more agitated throughout the night. Reportedly he was swinging and yelling at his caregiver in the room with him. Reorientation has not been successful. No other reported obvious variables (e.g., pain, SOB, etc.) that would otherwise explain. His history of CP is noted. His home neuromodulators and Ativan, including recent dose change, are noted. Given ongoing agitation with inability to reorient, opt to give a single additional dose of Ativan 0.25mg IV (he was previously on 0.5mg b.i.d.). Delirium precautions. Reorient and continue repeat assessments. Plan d/w RN. Resident Activity Tracking Resident Involvement: Resident Care Provided Care Provided: Adult Hospital Medicine
[2022-06-26] MEDS ORDERED: LORazepam 0.25 MG in SYRINGE 0 ML IV ONE (04:30)
[2022-06-26] MEDS: SODIUM CHLOR 7% 4 ML NEB NEB SCH ×2 (07:09→19:44)
[2022-06-26 07:30] LABS: BUN Creatinine Ratio 18.8 (10-20); Calcium 8.1 mg/dl (8.5-10.1); Creatinine Clr Calc Pharmacy 99.3 ml/min; Est GFR (African American) 123.3 ml/min; Est GFR (Non-African American) 106.4 ml/min; Magnesium 1.8 mg/dl (1.7-2.4); Potassium 3.9 mmol/L (3.5-5.1)
--- NOTE | 2022-06-26 07:30 | Hospitalist Progress Note ---
Date of Service June 26, 2022 Assessment & Plan (1) Aspiration pneumonia: Plan: Just completed 7+ day course of Augmentin for pneumonia as outpatient -- was still on abx per aide in room on admission Despite such he did not improve. Ongoing RLL pneumonia on cxr at admission. Respiratory biofire obtained given group living situation --> NEGATIVE Day #6 of IV zosyn -- would complete 7 days inpatient Add doxycycline for atypical coverage (started PM 06/22) MRSA swab negative . Prior +. If worsens, consider adding coverage WBC elevated, ? if from agitation pulling yelling at staff overnight, ativan 0.25mg x 1 provided. Also on Decadron IV Changed ativan IV back to 0.5mg BID given that was his prior dose Afebrile, procal 0.15 Speech therapy -- asked for re-eval given concerns for pocketing overnight earlier in the week. Assessment unchanged. Did change to IV Keppra to ensure getting doses/maintain seizure precautions, tolerating change back (DEPAKOTE LEVELS WNL, changed to sprinkles during prior admission)) --> Doesn't have true dysphagia and aspiration but instead a very tortuous esophagus which can lend itself to esophageal dysmotility. --> believe in [facility] but will need further evaluation, may benefit from senior care for closer monitoring (aide in room 2 nights ago reportedly fell asleep when he had aspiration event) Speech advising minced/moist diet and thin liquids Bronchodilators - Xopenex/Atrovent nebs q6h due to concurrent wheezes. Added hypertonic saline to nebs BID 06/23 -- continue Cortisol is relatively low given his illness - 9.86-> this, coupled with wheezing -- added dexamethasone 6mg IV BID, decreased to 2mg IV BID, decrease to 1mg IV BID for today then consider cutting IVF previously ordered however worsening congestion on exam and suspected volume overload, since discontinued 06/22 Placed on lasix 20mg PO BID for now, elevated BNP and edema on CXR w effusions -- continue Continue abx for now but if were to worsen at all tomorrow/fever, consider obtaining CT Chest (prior admit April w/ rec for repeat CT chest 3 months anyways) ?some kind of tract causing recurrent infections/mediastinitis or something? Nontender to palpation chest. ECHO w/o valvular heart disease, EF normal. technically difficult study Asked CM to look into obtaining POLST form for patient given no family/continued admissions Did have lengthy discussion with aide in room who has been with patient for ~ 2 years. Endorses he likes chips/snacks, they are his only source of carley in life. Discussed permissive aspiration/possible POLST form to delineate wishes if issues recur. She was having difficult time with understanding why this keeps happening. She did note multiple hospitalizations and maybe some initial good info regarding diet relayed but then not again in subsequent possible. Did discussed 2 admissions for grape impaction and clearly dietary restrictions not being followed. Would need to avoid foods like that/hot dogs/etc....but may be beneficial for POLST as stated to keep patient goals focused on comfort. Ideally would benefit from SNF for closer monitoring/etc in this situation but patient does appear to enjoy current aide and she states they are very interactive with him Also discussed limiting some of his medications DOES HAVE POLST--> DNR but abx/fluids temporarily. Will confirm on Tuesday Encouraged ambulation in his chair in the hallways for mood today (2) Sepsis: Plan: 2nd to #1 Low BPs HOLDing propranolol , ?need to resume at all IVF ordered, stopped, decadron decreased BPs still borderline but appear borderline for patient in past as well Urine cx NO GROWTH BCx NGTD (3) Hypotension: Plan: hold propranolol cortisol level 9 - started dexamethasone, decreased for today BPs stable/borderline at times but improved and stable with IV lasix and no further IVF Holding inderal as well -- consider discontinuing this mediation given HR lower normal as well -- stable in 60-80s on telemetry overnight (outside acute spike w/ agitation) suspect related to infection, but also possible from volume overload. ECHO to be obtained as above, elevated BNP. Stable w/ diuretics Did decrease decadron but pending may need to increase back (4) Esophageal abnormality: Plan: h/o tortuous esophagus long-standing swallowing and esophageal issues from such cont PPI bid -- continue IV for now, switch back to PO for tomorrow Speech consulted (5) Cerebral palsy: Plan: Per caregivers, baseline neurologic status is more alert than what he is currently demonstrating Smiles, laughs, will intermittently yell When feeling better, assist with transitions and likes to go around on his david rized wheelchair -- per aide in room hasn't been doing that for the month she's been with him and he likes to be in his recliner chair More awake/alert --> wanting to get into chair and moving around a lot better (6) Paroxysmal atrial tachycardia: Plan: history of such due to low BPs - HOLD Propranolol no Arrhythmia seen since admission, HR has been sinus in the 50-60s off this medication, now in the 60-70s this morning --> consider discontinuing if continues without arrhythmia on monitor (7) Epilepsy: Plan: Continued depakote, keppra, ativan, and -- made the depakote, keppra, ativan IV for now , changed back to PO and tolerating Topamax on hold for borderline BPS, no seizure activity since off of this medication Consider discontinuing the topamax? Maintain seizure precautions -- no witnessed since admission (8) GERD (gastroesophageal reflux disease): Plan: Continue protonix and carafate continue to monitor mag (9) PAD (peripheral artery disease): Plan: continue aspirin (10) Severe intellectual disabilities: (11) DVT prophylaxis: Plan: has h/o upper GI bleed however, EGD 05/2022 with normal stomach/duodenum (done for grape food impaction) risk of DVT - given bedbound status - outweighs any risk of heparin SC thus start heparin 5000 BID - continue while inpatient no bleeding reported but will check fecal occult. hgb stable but suspect from volume overload . monitor could also be induced by the IV zosyn CBC in AM Plan continued inpatient stay decreased decadron, increased lasix continue zosyn/doxycycline for today -- would complete course inpatient to ensure getting full 7 days and avoid pocketing/crushing and having patient not get adequate treatment Obtain ECHO working on seeing if obtaining a POLST possible at [facility] given no family aide 06/25 at bedside with Donny for ~2 years. Would ideally like specific laid out instructions for at discharge to ensure compliance with plan Admission and Anticipated Discharge Date Admission Date: June 21, 2022 Subjective Episode of agitation noted overnight, additional 0.25mg ativan provided IV. Changed BID IV dosing back to 0.5mg BID as taking at home. Received POLST form yesterday indicating DNR with limited interventions and antibioitics for infection with comfort as a goal, trial period of artificial hydration and nutrition. Will attempt to reach out on Tuesday to see about alterations and discussion given reports for chips/cookies/crackers as his things that bring him carley and clearly do not follow dietary recommendations. Seen with coordinator/aide at bedside, somewhat somnolent initially this morning, discussed agitation overnight and ativan provided. Remains on room air. Per main aide seen last admission by myself, she did note some swelling in his legs over the past couple weeks, was written off by provider in follow up previously. Discussed belief for possible volume overload responding to diuretics. She states they have been compliant with dietary changes since admissions this summer. Wondering if stomach in chest twisting may have caused prior black emesis. Could be vs grape/ulceration prior and remains on treatment. She also wonders if depakote level too high now that patient getting the sprinkles --> was obtained this admission, wnl. Prior was borderline high. Can recheck in month outpatient to ensure stability. We also discussed cutting back medications/bowel regimen and using only if needed for no BM in 2 days or more. Thankful for that. Review of Systems Review of Systems: All systems reviewed & are unremarkable except as noted in HPI & below Physical Exam Physical Exam: General: dysmorphic appearance, improvement in energy/interaction, making noises, moving around and pulling at things, much more alert compared to two days ago, chronically ill appearing mouth- mmm, no tracheal deviation Resp: not tachypneic, on room air, bilateral rales/crackles in the bases with expiratory wheezing (IMPROVED from 2 days ago, about the same today), decreased in base on the RIGHT, on room air CV: RRR, slightly quiet HS, no m/r/g, trace b/l LE edema improved, pulses p alpable GI: +BS, nontender ; external catheter draining yellow urine Psych/Neuro: alert to voice/name, making noises, nonverbal/CP at baseline, pulling at sheets in bed Results & Data Results & Data ([facility]) Vital Signs (Past 12 Hours) Vital Signs Temp Pulse Pulse Resp BP BP Pulse Ox 06/26/22 07:09 72 18 95 06/26/22 02:48 37.4 C 95 H 20 96/55 L 95 06/25/22 21:00 06/25/22 23:27 37.5 C 100 H 20 116/77 99 06/25/22 22:23 99 H 06/25/22 19:31 36.6 C 74 20 110/82 92 O2 Del Method 06/26/22 07:09 Room Air 06/26/22 02:48 Room Air 06/25/22 21:00 Room Air 06/25/22 23:27 Room Air 06/25/22 22:23 06/25/22 19:31 Room Air Laboratory Results 06/26/22 06/26/22 06/26/22 Range/Units 09:42 07:57 06:25 WBC 14.08 H RBC 3.37 L Hgb 10.1 L Hct 30.7 L MCV 91.1 MCH 30.0 MCHC 32.9 RDW Std Deviation 53.1 H RDW Coeff of Mahogany 16.0 H Plt Count 283 MPV 9.8 Absolute Nucleated RBC Nucleated RBC % (auto) Platelet Estimate Sodium 141 (136-145) mmol/L Potassium 3.9 (3.5-5.1) mmol/L Chloride 111 H (98-107) mmol/L Carbon Dioxide 21 (21-32) mmol/L Anion Gap 9 (3-11) BUN 12 (6-23) mg/dl Creatinine 0.64 (0.6-1.4) mg/dl Est Cr Clr Drug Dosing 99.3 ml/min Est GFR ( Amer) 123.3 ml/min Est GFR (Non-Af Amer) 106.4 ml/min BUN/Creatinine Ratio 18.8 (10-20) Glucose 98 (70-99(Fasting)) mg/dl Calcium 8.1 L (8.5-10.1) mg/dl Magnesium 1.8 (1.7-2.4) mg/dl Procalcitonin 0.15 (0-0.5) ng/ml Stl C. diff Tox B Gene (Neg) Urine Legionella Ag 06/26/22 06/25/22 06/25/22 Range/Units 06:25 18:05 15:35 WBC Cancelled RBC Cancelled Hgb Cancelled Hct Cancelled MCV Cancelled MCH Cancelled MCHC Cancelled RDW Std Deviation Cancelled RDW Coeff of [place] Cancelled Plt Count Cancelled MPV Cancelled Absolute Nucleated RBC Cancelled Nucleated RBC % (auto) Cancelled Platelet Estimate Cancelled Sodium (136-145) mmol/L Potassium (3.5-5.1) mmol/L Chloride (98-107) mmol/L Carbon Dioxide (21-32) mmol/L Anion Gap (3-11) BUN (6-23) mg/dl Creatinine (0.6-1.4) mg/dl Est Cr Clr Drug Dosing ml/min Est GFR ( Amer) ml/min Est GFR (Non-Af Amer) ml/min BUN/Creatinine Ratio (10-20) Glucose (70-99(Fasting)) mg/dl Calcium (8.5-10.1) mg/dl Magnesium (1.7-2.4) mg/dl Procalcitonin (0-0.5) ng/ml Stl C. diff Tox B Gene Negative Cdiff Gene (Neg) Urine Legionella Ag Pending PG Care Time/CCT Total # of Minutes Spent Total Time Spent with Patient: Total time spent is greater than 50% in coordination of care (as documented) at patient's floor/unit and/or counseling patient: Coding Level of Care Code 39040 Subseq Hosp Care Lvl 3 Diagnoses Aspiration pneumonia J69.0 Sepsis A41.9 Hypotension I95.9 Esophageal abnormality K22.9 Cerebral palsy G80.9 Paroxysmal atrial tachycardia I47.1 Epilepsy G40.909 GERD (gastroesophageal reflux disease) K21.9 PAD (peripheral artery disease) I73.9 Severe intellectual disabilities F72 DVT prophylaxis Z29.9
[2022-06-26 08:06] LABS: Hematocrit (blood only) 30.7 % (40.1-51.0); Hemoglobin 10.1 g/dl (14.0-18.0); Mean Corpuscular Hgb Conc 32.9 g/dL (32.0-36.0); Mean Corpuscular Volume 91.1 fL (80.0-100.0); Mean Platelet Volume 9.8 fL (9.4-12.4); Platelet Count 283 K/uL (130-400); RDW Standard Deviation 53.1 fL (36.4-46.3); Red Blood Count 3.37 M/uL (4.63-6.08); White Blood Count 14.08 K/ul (4.8-10.8)
[2022-06-26] MEDS: LORazepam 0.5 MG in SYRINGE 0 ML IV SCH ×2 (09:11→21:19)
[2022-06-26] MEDS: PANTOprazole 40 MG in SYRINGE 0 ML IV SCH ×2 (09:11→21:08)
[2022-06-26] MEDS: levETIRAcetam ORAL SOLN 100MG/ML PO SCH ×2 (09:11→21:08)
[2022-06-26] MEDS: SERTRALINE HCL 50 MG TABLET PO SCH (09:12)
[2022-06-26] MEDS: HEPARIN SOD 5,000 UNIT/0.5 ML VIAL SQ SCH ×2 (09:12→21:09)
[2022-06-26] MEDS: DIVALPROEX SODIUM SPRINKLE/DEL-REL 125 MG CAP PO SCH ×2 (09:13→21:07)
[2022-06-26] MEDS: FUROSEMIDE 20 MG TAB PO SCH ×2 (09:13→21:08)
[2022-06-26] MEDS: SUCRALFATE 1 GM/10 ML UDC PO SCH ×4 (09:14→21:08)
[2022-06-26] MEDS: POTASSIUM CHLORIDE 10 MEQ TABCR PO SCH (09:22)
[2022-06-26] MEDS: DOXYCYCLINE HYCLATE 100 MG CAP PO SCH ×2 (13:48→21:07)
--- NOTE | 2022-06-26 15:19 | XRay Report ---
XR chest 1V portable CLINICAL HISTORY: f/u TECHNIQUE: Single frontal radiograph of the chest was obtained. Comparison: Comparison is made to chest radiograph 06/25/2022 FINDINGS: No lines and tubes are seen. Cardiomegaly is noted. Prominence and cephalization of the vasculature i s seen. This is less prominent than in the prior exam. Interval improvement in right lower lung airsp francesco opacity. Possible small bilateral pleural effusions. IMPRESSION: Interval improvement in pulmonary edema. Right lower lung airspace opacity is less conspicuous than i n the prior exam and may represent improving atelectasis, pneumonia, and/or aspiration. Stable trace bilateral pleural effusions. ACT 112: Negative or not required by law. Electronically signed by: Dylan Figueredo M.D. 06/26/2022 3:17 PM
[2022-06-26] MEDS ORDERED: IRON SUCROSE 200 MG in 0.9 % SODIUM CHLORIDE 100 ML IV ONE (17:15)
[2022-06-27] MEDS ORDERED: dexAMETHasone 1 MG in SYRINGE 0 ML IV SCH
[2022-06-27] MEDS: PIPERACILLIN/TAZOBACTAM 3.375 GM in DEXTROSE 5% 100 ML IV SCH ×4 (00:43→23:23)
[2022-06-27 07:04] LABS: Hematocrit (blood only) 27.6 % (40.1-51.0); Hemoglobin 9.3 g/dl (14.0-18.0); Mean Corpuscular Hemoglobin 30.1 pg (25.0-34.0); Mean Corpuscular Hgb Conc 33.7 g/dL (32.0-36.0); Mean Corpuscular Volume 89.3 fL (80.0-100.0); Mean Platelet Volume 10.3 fL (9.4-12.4); Platelet Count 273 K/uL (130-400); RDW Standard Deviation 52.3 fL (36.4-46.3); Red Blood Count 3.09 M/uL (4.63-6.08); White Blood Count 10.83 K/ul (4.8-10.8)
[2022-06-27] MEDS: SODIUM CHLOR 7% 4 ML NEB NEB SCH ×2 (07:12→19:35)
[2022-06-27 07:30] LABS: BUN Creatinine Ratio 27.1 (10-20); Calcium 8.4 mg/dl (8.5-10.1); Creatinine Clr Calc Pharmacy 108.7 ml/min; Est GFR (African American) 127.5 ml/min; Magnesium 1.8 mg/dl (1.7-2.4); Potassium 3.5 mmol/L (3.5-5.1)
--- NOTE | 2022-06-27 08:09 | Hospitalist Progress Note ---
Date of Service June 27, 2022 Assessment & Plan (1) Aspiration pneumonia: Plan: Just completed 7+ day course of Augmentin for pneumonia as outpatient -- was still on abx per aide in room on admission Despite such he did not improve. Ongoing RLL pneumonia on cxr at admission. Respiratory biofire obtained given group living situation --> NEGATIVE Day #7 of IV zosyn -- completed 7 days after 06/27, extend until tomorrow as checking CT chest Continue Doxy for atypical (started 06/23) - complete 5 days, complete after today MRSA swab negative Prior added decadron IV for wheezing/low BP and coritsol not elevated as expected given illness Titrated to 2mg IV BID, then 1mg IV BID, discontinue moving forward as suspect contributed to volume overload WBC elevated but decreasing w/ decreased steroids. AFEBRILE nebs prn wheezing, hypertonic saline added 06/23 to help clear secretions. ?benefit from vibration vest? BNP checked, elevated Diuretics initiated and IVF discontinued 06/22 Lasix 20mg, increased to PO BID with improvement in CXR and lung exam CXR 06/27 with cardiomegaly with evidence of congestive failure, b/l airspace opacities likely resp pulm edema, correlate clinically for infectious/i nflammatory pneumonitis suspect also chronically aspirating at baseline Ordered lasix 20mg IV for this afternoon, will place on 20mg IV daily for now given continued congestin ECHO obtained previously this week for concerns volume overload/CHF eval --> w/o valvular heart disease, EF normal, however tech difficult study Check CT chest -- prior imaging april w/ rec f/u 3 months as well, ?some kind of tract causing recurrent infections/mediastinitis? Speech consulted -- continue minced/moist. Doesn't have true dysphagia and aspiration but instead a very tortuous esophagus which can lend itself to esophageal dysmotility. Aspiration precautions, HOB elevation (2) Sepsis: Plan: 2nd to #1 Low BPs HOLDing propranolol , ?need to resume at all IVF ordered, stopped, decadron decreased BPs still borderline but appear borderline for patient in past as well Urine cx NO GROWTH BCx NGTD (3) Hypotension: Plan: hold propranolol, topimax suspect related to infection initially, however BPs always borderline --> then with volume overload given worsening hypotension with steroids and fluid retention (aide reported couple weeks edema to patients feet/legs) BPs stable and actually improved with diuretics, as well as Venofer replacement for his iron deficiency anemia BPs 135/68 currently Lasix 20mg IV this afternoon, continue daily for now/monitor response (4) Esophageal abnormality: Plan: h/o tortuous esophagus long-standing swallowing and esophageal issues from such cont PPI bid -- continue IV for now, switch back to PO for tomorrow -- continuing IV to prevent excess PO intake/aspiration Speech consulted as above (5) Cerebral palsy: Plan: Per caregivers, baseline neurologic status is more alert than what he is currently demonstrating Smiles, laughs, will intermittently yell When feeling better, assist with transitions and likes to go around on his motorized wheelchair -- per aide in room hasn't been doing that for the month she's been with him and he likes to be in his recliner chair More awake/alert --> wanting to get into chair and moving around a lot better, LAUGHING 06/27 (6) Paroxysmal atrial tachycardia: Plan: history of such due to low BPs - HOLD Propranolol no Arrhythmia seen since admission, HR has been sinus in the 50-60s off this medication, then 60-70s on 06/26 Currently 80-100 NSR on monitor -- may need to resume propranolol, possibly smaller dose Did discontinue decadron, will monitor for now (7) Epilepsy: Plan: Continued depakote, keppra, ativan, and -- made the depakote, keppra, ativan IV for now , changed back to PO and tolerating Topamax on hold for borderline BPS, no seizure activity since off of this medication Consider discontinuing the topamax? Maintain seizure precautions -- no witnessed since admission (8) GERD (gastroesophageal reflux disease): Plan: Continue protonix and carafate continue to monitor mag (9) PAD (peripheral artery disease): Plan: continue aspirin (10) Severe intellectual disabilities: (11) Anemia: Plan: iron studies w/ low iron/trans % sat Venofer provided 200mg on 06/26, 06/27, consider additional dose in AM Hgb still in 9s, no obvious bleeding on exam, no bloody stool reported Suspect hgb dilutional from volume overload, monitor response to diuretics on AM labs with increased diuretics could also be worsened by abx CBC in AM (12) DVT prophylaxis: Plan: has h/o upper GI bleed however, EGD 05/2022 with normal stomach/duodenum (done for grape food impaction) risk of DVT - given bedbound status - outweighs any risk of heparin SC thus start heparin 5000 BID - continue while inpatient no bleeding reported but will check fecal occult. hgb stable but suspect from volume overload . monitor could also be induced by the IV zosyn CBC in AM Plan continued inpatient stay continue zosyn through tomorrow while checking CT chest to ensure no cause for recurrent infection Lasix IV for this afternoon, daily tomorrow, increased PO KCl supplementation to 20meq BID (2 klor con, smaller pills to prevent issues w/ choking, could also use powder/liquid) Monitor BNP in AM Checking CT chest Admission and Anticipated Discharge Date Admission Date: June 21, 2022 Subjective eval this morning, aide at bedside. patient laughing and yelling out, being cooperative with care breathing remains stable discussed imaging with congestive change and diuretics as suspected more volume overload in days prior with current aide (who will not be here tomorrow) tolerating diet, assisted with boosting up in bed patiend nontender on exam, appears comfortable external catheter draining clear yellow urine. no fever/chills. Review of Systems Review of Systems: All systems reviewed & are unremarkable except as noted in HPI & below Physical Exam Physical Exam: General: dysmorphic appearance, improvement in energy/interaction, making noises, moving around and pulling at things, much more alert compared to two days ago, chronically ill appearing mouth- mmm, no tracheal deviation Resp: not tachypneic, on room air, bilateral rales/crackles in the bases with expiratory wheezing (IMPROVED from 2 days ago, about the same today), decreased in base on the RIGHT, on room air CV: RRR, slightly quiet HS, no m/r/g, trace b/l LE edema, pulses palpable GI: +BS, nontender ; external catheter draining clear yellow urine Psych/Neuro: alert to voice/name, making noises, laughing, nonverbal/CP at baseline, pulling at sheets in bed Results & Data Results & Data ([facility]) Vital Signs (Past 12 Hours) Vital Signs Temp Pulse Pulse Resp BP Pulse Ox O2 Del Method 06/27/22 07:57 37.4 C 85 20 115/58 L 98 Room Air 06/27/22 07:14 81 06/27/22 07:15 86 18 95 Room Air 06/27/22 03:21 37.5 C 81 18 112/68 92 Room Air 06/26/22 22:31 91 H 06/26/22 23:09 36.6 C 92 H 20 92/57 L 98 Room Air 06/26/22 22:38 Room Air Laboratory Results 06/27/22 06/27/22 06/26/22 Range/Units 06:28 06:28 09:42 WBC 10.83 H (4.8-10.8) K/ul RBC 3.09 L (4.63-6.08) M/uL Hgb 9.3 L (14.0-18.0) g/dl Hct 27.6 L (40.1-51.0) % MCV 89.3 (80.0-100.0) fL MCH 30.1 (25.0-34.0) pg MCHC 33.7 (32.0-36.0) g/dL RDW Std Deviation 52.3 H (36.4-46.3) fL RDW Coeff of Mahogany 16.0 H (11.5-14.5) % Plt Count 273 (130-400) K/uL MPV 10.3 (9.4-12.4) fL Sodium 139 (136-145) mmol/L Potassium 3.5 (3.5-5.1) mmol/L Chloride 108 H (98-107) mmol/L Carbon Dioxide 24 (21-32) mmol/L Anion Gap 7 (3-11) BUN 16 (6-23) mg/dl Creatinine 0.59 L (0.6-1.4) mg/dl Est Cr Clr Drug Dosing 108.7 ml/min Est GFR ( Amer) 127.5 ml/min Est GFR (Non-Af Amer) 110.0 ml/min BUN/Creatinine Ratio 27.1 H (10-20) Glucose 88 (70-99(Fasting)) mg/dl Calcium 8.4 L (8.5-10.1) mg/dl Magnesium 1.8 (1.7-2.4) mg/dl Procalcitonin 0.15 (0-0.5) ng/ml 06/26/22 Range/Units 07:57 WBC 14.08 H (4.8-10.8) K/ul RBC 3.37 L (4.63-6.08) M/uL Hgb 10.1 L (14.0-18.0) g/dl Hct 30.7 L (40.1-51.0) % MCV 91.1 (80.0-100.0) fL MCH 30.0 (25.0-34.0) pg MCHC 32.9 (32.0-36.0) g/dL RDW Std Deviation 53.1 H (36.4-46.3) fL RDW Coeff of [place]og[place] 16.0 H (11.5-14.5) % Plt Count 283 (130-400) K/uL MPV 9.8 (9.4-12.4) fL Sodium (136-145) mmol/L Potassium (3.5-5.1) mmol/L Chloride (98-107) mmol/L Carbon Dioxide (21-32) mmol/L Anion Gap (3-11) BUN (6-23) mg/dl Creatinine (0.6-1.4) mg/dl Est Cr Clr Drug Dosing ml/min Est GFR ( Amer) ml/min Est GFR (Non-Af Amer) ml/min BUN/Creatinine Ratio (10-20) Glucose (70-99(Fasting)) mg/dl Calcium (8.5-10.1) mg/dl Magnesium (1.7-2.4) mg/dl Procalcitonin (0-0.5) ng/ml Diagnostic Findings Chest X-Ray 06/27/22 09:40 SINGLE VIEW CHEST CLINICAL HISTORY: Dyspnea. FINDINGS: An AP, portable, upright chest radiograph is compared to study dated 06/26/2022. The examination is degraded by portable technique and patient rotation. The heart is enlarged. There is pulmonary vascular congestion. Bi lateral airspace opacities are similar to previous. Small pleural effusions are noted. No pneumothorax is seen. The skeletal structures are osteopenic. The bony thorax is grossly intact. IMPRESSION: 1. Cardiomegaly with evidence of congestive failure 2. Bilateral airspace opacities likely represent pulmonary edema. Correlate clinically for evidence of a superimposed infectious/inflammatory pneumonitis. 3. Small pleural effusions are noted. ACT 112: Negative or not required by law. Electronically signed by: Vaughn Santana M.D. 06/27/2022 10:29 AM PG Care Time/CCT Total # of Minutes Spent Total Time Spent with Patient: Total time spent is greater than 50% in coordination of care (as documented) at patient's floor/unit and/or counseling patient: Coding Level of Care Code 74302 Subseq Hosp Care Lvl 3 Diagnoses Aspiration pneumonia J69.0 Sepsis A41.9 Hypotension I95.9 Esophageal abnormality K22.9 Cerebral palsy G80.9 Paroxysmal atrial tachycardia I47.1 Epilepsy G40.909 GERD (gastroesophageal reflux disease) K21.9 PAD (peripheral artery disease) I73.9 Severe intellectual disabilities F72 Anemia D64.9 DVT prophylaxis Z29.9
[2022-06-27] MEDS: SERTRALINE HCL 50 MG TABLET PO SCH (08:49)
[2022-06-27] MEDS: DIVALPROEX SODIUM SPRINKLE/DEL-REL 125 MG CAP PO SCH ×2 (08:52→20:15)
[2022-06-27] MEDS: DOXYCYCLINE HYCLATE 100 MG CAP PO SCH (08:53)
[2022-06-27] MEDS: levETIRAcetam ORAL SOLN 100MG/ML PO SCH ×2 (08:56→20:16)
[2022-06-27] MEDS: SUCRALFATE 1 GM/10 ML UDC PO SCH ×4 (09:00→20:15)
[2022-06-27] MEDS ORDERED: FUROSEMIDE 20 MG TAB PO SCH (09:00)
[2022-06-27] MEDS ORDERED: POTASSIUM CHLORIDE 10 MEQ TABCR PO SCH (09:00)
[2022-06-27] MEDS: HEPARIN SOD 5,000 UNIT/0.5 ML VIAL SQ SCH ×2 (09:04→20:48)
[2022-06-27] MEDS: PANTOprazole 40 MG in SYRINGE 0 ML IV SCH ×2 (09:19→20:48)
[2022-06-27] MEDS: LORazepam 0.5 MG in SYRINGE 0 ML IV SCH ×2 (10:30→20:48)
--- NOTE | 2022-06-27 10:30 | XRay Report ---
SINGLE VIEW CHEST CLINICAL HISTORY: Dyspnea. FINDINGS: An AP, portable, upright chest radiograph is compared to study dated 06/26/2022. The examin ation is degraded by portable technique and patient rotation. The heart is enlarged. There is pulmon aiden vascular congestion. Bilateral airspace opacities are similar to previous. Small pleural effusion s are noted. No pneumothorax is seen. The skeletal structures are osteopenic. The bony thorax is anais sly intact. IMPRESSION: 1. Cardiomegaly with evidence of congestive failure 2. Bilateral airspace opacities likely represent pulmonary edema. Correlate clinically for evidence o f a superimposed infectious/inflammatory pneumonitis. 3. Small pleural effusions are noted. ACT 112: Negative or not required by law. Electronically signed by: Vaughn Santana M.D. 06/27/2022 10:29 AM
[2022-06-27] MEDS ORDERED: IRON SUCROSE 200 MG in 0.9 % SODIUM CHLORIDE 100 ML IV ONE (13:00)
[2022-06-27] MEDS ORDERED: FUROSEMIDE INJ 20 MG/2 ML VIAL IV ONE (15:36)
[2022-06-27] MEDS ORDERED: OPTIRAY 350 100ml IV ONE (16:04)
[2022-06-27 16:10] LABS: Appearance Urine Clear (Clear); Bilirubin Urine Negative (Negative); Blood Urine Negative (Negative); Color Urine Yellow; Glucose Urine UA Negative (Negative); Ketones Urine Negative (Negative); Leukocyte Esterase Urine Negative (Negative); Nitrite Urine Negative (Negative); Protein Urine Negative (Negative); Specific Gravity Urine 1.009 (1.000-1.030); Urobilinogen Urine Negative (Negative)
--- NOTE | 2022-06-27 18:39 | CT Scan Report ---
CT SCAN OF THE CHEST WITH IV CONTRAST CLINICAL HISTORY: Aspiration pneumonia. COMPARISON STUDY: Chest x-ray dated 06/27/2022. Chest CT dated 05/02/2022. TECHNIQUE: Following the IV administration of 87 cc of Optiray 350, CT scan of the thorax was perform ed from the thoracic inlet to the upper abdomen. Images are reviewed in the axial, sagittal, and will nal planes. IV contrast was administered without complication. A dose lowering technique was utilize d adhering to the principles of ALARA. The examination is degraded by motion artifact, as well as by streak artifact from the arms which could not be identified in the chest. CT DOSE: 253.46 mGy.cm FINDINGS: Thyroid: Imaged portions of the thyroid gland are normal in size and attenuation. Thoracic aorta: The thoracic aorta is normal in caliber and demonstrates bovine variant arch anatomy. No dissection is seen. Pulmonary vasculature: The pulmonary trunk is normal in caliber. There are no filling defects identif ied in the central pulmonary vessels to indicate pulmonary embolus. Note that this examination was no t protocoled for evaluation of the pulmonary arteries. Heart: The heart is top normal in size and without pericardial effusion. The coronary arteries are de nsely calcified. Lungs and pleural spaces: Evaluation of the lung parenchyma is significantly degraded by motion artif act. Secretions are noted within the trachea. There are small to moderate right and small left pleura l effusions with associated atelectasis. There is mild patchy airspace consolidation seen throughout both lungs with foci of tree-in-bud nodularity. Dense airspace consolidation is seen in the right mid dle and right lower lobes. No pneumothorax is identified. Mediastinum: Subcentimeter mediastinal lymph nodes are not pathologically enlarged by size criteria. Juliet: Clear. Axillae: There is no axillary lymphadenopathy. Upper abdomen: There is a moderate hiatal hernia. Partially visualized upper abdominal viscera is oth erwise grossly unremarkable. Skeletal structures: The skeletal structures are osteopenic. Degenerative change and scoliosis is not ed in the thoracic spine. No lytic or blastic bony lesions are seen. IMPRESSION: 1. Significantly streak and motion compromised examination. 2. Multifocal airspace consolidation as above. The appearance is typical for pneumonia/aspiration pne umonitis. Clinical correlation will be required and radiographic follow-up to resolution is recommend ed. 3. Right larger than left pleural effusions with dependent atelectasis. 4. Moderate hiatal hernia. 5. Additional findings as above. ACT 112: Negative or not required by law. Electronically signed by: Vaughn Santana M.D. 06/27/2022 6:38 PM
[2022-06-27] MEDS: POTASSIUM CHLORIDE CRTAB 20 MEQ TABCR PO SCH (20:15)
[2022-06-27] MEDS ORDERED: FUROSEMIDE INJ 20 MG/2 ML VIAL IV SCH (21:00)
[2022-06-28 06:44] LABS: Hematocrit (blood only) 32.7 % (40.1-51.0); Hemoglobin 10.7 g/dl (14.0-18.0); Mean Corpuscular Hemoglobin 29.9 pg (25.0-34.0); Mean Corpuscular Hgb Conc 32.7 g/dL (32.0-36.0); Mean Corpuscular Volume 91.3 fL (80.0-100.0); Platelet Count 303 K/uL (130-400); RDW Coefficient of Variation 16.6 % (11.5-14.5); RDW Standard Deviation 54.3 fL (36.4-46.3); Red Blood Count 3.58 M/uL (4.63-6.08); White Blood Count 11.08 K/ul (4.8-10.8)
[2022-06-28 07:08] LABS: BUN Creatinine Ratio 25.4 (10-20); Calcium 8.9 mg/dl (8.5-10.1); Creatinine Clr Calc Pharmacy 90.3 ml/min; Est GFR (African American) 118.2 ml/min; Magnesium 1.9 mg/dl (1.7-2.4); Potassium 3.8 mmol/L (3.5-5.1)
[2022-06-28] MEDS: SODIUM CHLOR 7% 4 ML NEB NEB SCH (07:22)
[2022-06-28 07:24] LABS: Partial Thromboplastin Ratio 1.2; Partial Thromboplastin Time 32.6 Seconds (21.0-31.0)
--- NOTE | 2022-06-28 08:21 | Hospitalist Progress Note ---
Date of Service June 28, 2022 Assessment & Plan (1) Aspiration pneumonia: Plan: Just completed 7+ day course of Augmentin for pneumonia as outpatient -- was still on abx per aide in room on admission Despite such he did not improve. Ongoing RLL pneumonia on cxr at admission. Respiratory biofire obtained given group living situation --> NEGATIVE Day #8 of IV zosyn, STOPPED after discussion with pulm below, also completed 5 days DOXY BID MRSA swab negative Speech consulted -- continue minced/moist. Doesn't have true dysphagia and aspiration but instead a very tortuous esophagus which can lend itself to esophageal dysmotility. Aspiration precautions, HOB elevation Prior added Decadron IV for wheezing/low BP and coritsol not elevated as expected given illness Titrated, then weaned off 06/27 as suspected volume overload BNP checked, elevated Diuretics initiated and IVF discontinued 06/22 Lasix 20mg, increased to PO BID with improvement in CXR and lung exam CXR 06/27 with cardiomegaly with evidence of congestive failure, b/l airspace opacities likely resp pulm edema, correlate clinically for infectious/inflammatory pneumonitis suspect also chronically aspirating at baseline ECHO w/o valvular heart disease, EF normal, however technically difficult study Ordered lasix 20mg IV for afternoon 06/[address] chest obtained for further eval given ongoing issues (prior CT chest in April also rec f/u in 3 months as well) 06/[address] chest w/ pulm Appears more pneumonitis from chronic aspirations, but still w/ effusions--> felt clinical picture w/ improvement in opacities and no further abx given procal 0.15 BPs improved overall w/ diuretics compared to last weel Scheduled Lasix 20mg IV daily for now (given additional dose evening 06/27 in addition to 10mg PO in AM) but in hopes of getting patient back to [facility] tomorrow as discussed with Dr Daniels, recs to give additional 20mg IV lasix evening 06/28 and Continue 40mg PO lasix daily HR 90-100s today, was going to resume propranolol, however rates to 80s this afternoon and will hold off while continuing to diurese Will contact Dr Xie regarding medication changes at discharge (2) Sepsis: Plan: 2nd to #1 Low BPs HOLDing propranolol , ?need to resume at all IVF ordered, stopped, decadron decreased and discontinued urine cx no growth BCx NGTD BPs improved with diuretics (3) Hypotension: Plan: hold propranolol, topimax suspect related to infection initially, however BPs always borderline --> then with volume overload given worsening hypotension with steroids and fluid retention (aide reported couple weeks edema to patients feet/legs) BPs stable and actually improved with diuretics, as well as Venofer replacement (THIRD DOSE 06/28 ) for his iron deficiency anemia monitor on lasix, off propranolol (4) Esophageal abnormality: Plan: h/o tortuous esophagus long-standing swallowing and esophageal issues from such cont PPI bid -- continued IV for now, switched back to PO speech consulted as above (5) Cerebral palsy: Plan: Per caregivers, baseline neurologic status is more alert than what he is currently demonstrating Smiles, laughs, will intermittently yell When feeling better, assist with transitions and likes to go around on his motorized wheelchair -- per aide in room hasn't been doing that for the month she's been with him and he likes to be in his recliner chair More awake/alert --> wanting to get into chair and moving around a lot better, LAUGHING 06/27 remaining stable 06/28 (6) Paroxysmal atrial tachycardia: Plan: history of such due to low BPs - HOLD Propranolol no Arrhythmia seen since admission, HR has been sinus in the 50-60s off this medication, then 60-70s on 06/26 Currently 90-100 NSR on monitor -- may need to resume propranolol, possibly smaller dose Did discontinue Decadron, will monitor for now (7) Epilepsy: Plan: Continued Depakote, Keppra, Ativan, and -- made the depakote, keppra, ativan IV for now , changed back to PO and tolerating Topamax on hold for borderline BPS, no seizure activity since off of this medication Consider discontinuing the Topamax? Maintain seizure precautions -- no witnessed since admission (8) GERD (gastroesophageal reflux disease): Plan: Continue protonix and carafate continue to monitor mag (9) PAD (peripheral artery disease): Plan: continue aspirin (10) Severe intellectual disabilities: (11) Anemia: Plan: iron studies w/ low iron/trans % sat Venofer provided 200mg on 06/26, 06/27, 06/28, will repeat dose for AM Hgb stable on repeat and w/ diuretics No bleeding reported -- aides always report stools brown (12) DVT prophylaxis: Plan: has h/o upper GI bleed however, EGD 05/2022 with normal stomach/duodenum (done for grape food impaction) risk of DVT - given bedbound status - outweighs any risk of heparin SC thus start heparin 5000 BID - continue while inpatient no bleeding reported Plan continued inpatient stay, diuretics as outlined stopped abx per discussion with pulmonary upon review of CT discussed medication changes with Dr Xie this evening, ok w/ stopping the propranolol/topimax, making bowel regimen prn, etc. Will update Admission and Anticipated Discharge Date Admission Date: June 21, 2022 Subjective Eval this morning, other aide Krista yesterday, same one from last week currently, reports improvement. No seizure activity Discussed diuretics and having pulmonary review imaging but switched to IV lasix 20 daily and wanting to ensure labs stable in aM/pulmonary input but possible discharge tomorrow [facility] to [facility]. Aide in room called Donny's RN Radha. Reviewed plan again. She was asking if I would be able to contact Dr Xie tomorrow to ensure medication changes OK. Review of Systems Review of Systems: All systems reviewed & are unremarkable except as noted in HPI & below Physical Exam Physical Exam: General: dysmorphic appearance, improvement in energy/interaction, making noises, moving around and pulling at things, much more alert compared to two days ago, chronically ill appearing mouth- mmm, no tracheal deviation Resp: not tachypneic, on room air, bilateral rales/crackles in the bases with expiratory wheezing (IMPROVED from 2 days ago, about the same today), decreased in base on the RIGHT, on room air CV: RRR, slightly quiet HS, no m/r/g, trace b/l LE edema, pulses palpable GI: +BS, nontender ; external catheter draining clear yellow urine Psych/Neuro: alert to voice/name, making noises, laughing, nonverbal/CP at baseline, pulling at sheets in bed Results & Data Results & Data ([facility]) Vital Signs (Past 12 Hours) Vital Signs Temp Pulse Pulse Pulse Resp BP BP 06/28/22 07:23 81 06/28/22 07:35 18 06/28/22 03:30 36.6 C 71 20 124/69 06/27/22 22:11 73 06/27/22 23:25 36.8 C 81 20 117/62 06/27/22 21:53 Pulse Ox O2 Del Method 06/28/22 07:23 06/28/22 07:35 94 Room Air 06/28/22 03:30 92 Room Air 06/27/22 22:11 06/27/22 23:25 98 Room Air 06/27/22 21:53 Room Air PG Care Time/CCT Total # of Minutes Spent Total Time Spent with Patient: Total time spent is greater than 50% in coordination of care (as documented) at patient's floor/unit and/or counseling patient: Coding Level of Care Code 98919 Subseq Hosp Care Lvl 3 Diagnoses Aspiration pneumonia J69.0 Sepsis A41.9 Hypotension I95.9 Esophageal abnormality K22.9 Cerebral palsy G80.9 Paroxysmal atrial tachycardia I47.1 Epilepsy G40.909 GERD (gastroesophageal reflux disease) K21.9 PAD (peripheral artery disease) I73.9 Severe intellectual disabilities F72 Anemia D64.9 DVT prophylaxis Z29.9
[2022-06-28] MEDS ORDERED: FUROSEMIDE INJ 20 MG/2 ML VIAL IV SCH ×2 (09:00→21:00)
[2022-06-28] MEDS: LORazepam 0.5 MG in SYRINGE 0 ML IV SCH (09:01)
[2022-06-28] MEDS: PANTOprazole 40 MG in SYRINGE 0 ML IV SCH (09:02)
[2022-06-28] MEDS: SERTRALINE HCL 50 MG TABLET PO SCH (09:02)
[2022-06-28] MEDS: levETIRAcetam ORAL SOLN 100MG/ML PO SCH ×2 (09:02→20:26)
[2022-06-28] MEDS: DIVALPROEX SODIUM SPRINKLE/DEL-REL 125 MG CAP PO SCH ×2 (09:03→20:26)
[2022-06-28] MEDS: POTASSIUM CHLORIDE CRTAB 20 MEQ TABCR PO SCH (09:03)
[2022-06-28] MEDS: SUCRALFATE 1 GM/10 ML UDC PO SCH ×4 (09:05→20:26)
[2022-06-28] MEDS: HEPARIN SOD 5,000 UNIT/0.5 ML VIAL SQ SCH ×2 (09:06→20:27)
[2022-06-28] MEDS: PIPERACILLIN/TAZOBACTAM 3.375 GM in DEXTROSE 5% 100 ML IV SCH (09:45)
[2022-06-28] MEDS ORDERED: IRON SUCROSE 200 MG in 0.9 % SODIUM CHLORIDE 100 ML IV ONE (11:00)
[2022-06-28] MEDS: PANTOprazole 40 MG TAB PO SCH (20:26)
[2022-06-28] MEDS: LORazepam 0.5 MG TAB PO SCH (20:26)
[2022-06-29] MEDS: PANTOprazole 40 MG TAB PO SCH ×2 (07:28→20:26)
[2022-06-29] MEDS: levETIRAcetam ORAL SOLN 100MG/ML PO SCH ×2 (07:28→20:26)
[2022-06-29] MEDS: HEPARIN SOD 5,000 UNIT/0.5 ML VIAL SQ SCH ×2 (07:29→20:27)
[2022-06-29] MEDS: DIVALPROEX SODIUM SPRINKLE/DEL-REL 125 MG CAP PO SCH ×2 (07:30→20:27)
[2022-06-29] MEDS: SERTRALINE HCL 50 MG TABLET PO SCH (07:30)
[2022-06-29] MEDS: POTASSIUM CHLORIDE 10 MEQ TABCR PO SCH (07:31)
[2022-06-29] MEDS: LORazepam 0.5 MG TAB PO SCH ×2 (07:42→20:27)
[2022-06-29 07:55] LABS: Basophils # (auto) 0.04 K/uL (0-0.2); Basophils % (auto) 0.5 %; Eosinophils # (auto) 0.52 K/uL (0-0.50); Eosinophils % (auto) 6.5 %; Hematocrit (blood only) 32.6 % (40.1-51.0); Hemoglobin 10.8 g/dl (14.0-18.0); Immature Granulocytes # (auto) 0.11 K/uL (0.00-0.02); Immature Granulocytes % (auto) 1.4 %; Lymphocytes # (auto) 2.38 K/uL (1.2-3.4); Mean Corpuscular Hemoglobin 29.9 pg (25.0-34.0); Mean Corpuscular Hgb Conc 33.1 g/dL (32.0-36.0); Mean Corpuscular Volume 90.3 fL (80.0-100.0); Mean Platelet Volume 9.8 fL (9.4-12.4); Monocytes # (auto) 0.94 K/uL (0.24-0.82); Monocytes % (auto) 11.8 %; Neutrophils # (auto) 3.95 K/uL (1.4-6.5); Neutrophils % (auto) 49.8 %; Platelet Count 302 K/uL (130-400); RDW Coefficient of Variation 17.1 % (11.5-14.5); RDW Standard Deviation 53.6 fL (36.4-46.3); Red Blood Count 3.61 M/uL (4.63-6.08); White Blood Count 7.94 K/ul (4.8-10.8)
[2022-06-29 08:25] LABS: BUN Creatinine Ratio 30.9 (10-20); Calcium 9.1 mg/dl (8.5-10.1); Creatinine Clr Calc Pharmacy 94.4 ml/min; Est GFR (African American) 120.3 ml/min; Est GFR (Non-African American) 103.8 ml/min; Magnesium 2.1 mg/dl (1.7-2.4); Potassium 3.7 mmol/L (3.5-5.1)
[2022-06-29] MEDS ORDERED: FUROSEMIDE 40 MG TAB PO SCH (09:00)
--- NOTE | 2022-06-29 10:27 | Discharge Summary ---
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 Per the ED staff, the patient's caregivers state that the patient has been on Augmentin for aspiration pneumonia for which he was seen for in the [facility] ED on 06/14/22; she states that today would have been day #8 of treatment. She states that nursing staff reported an episode of emesis and hypoxia (89% on RA) early this am around 0200. When asked, the caregiver states that his emesis was not bloody and did not appear like coffee grounds like his previous GI bleeds, she states that it looked as though he vomited last night's dinner. She states that the nursing staff also reported a fever of 100.6 F this morning as well. The patient is not on oxygen at baseline. Normally he is more alert, will yell at times, and is able to assist with transitions such as grabbing the side of the bed and turning when he needs to be wiped after a bowel movement. In the Ed the patient was found to be afebrile, hemodynamically stable, and stable on RA. Labs were remarkable for a leukocytosis of 11.65 with absolute neutrophils of 7.95, stable Hgb, Bicarb of 19, stable renal function, glucose WNL, TSH WNL. Chest xray showed "New airspace density in the right lower lobe may represent atelectasis, pneumonia, and/or aspiration. Mild pulmonary edema is noted.". The patient was given the loading dose of Zosyn and was given a 1L NSS bolus. Since the patient was just treated outpatient for similar issues we were asked to admit for IV antibiotics. At the time of the exam the patient was sleeping comfortably in bed and did not appear to be in any distress. He was noted to be stable on RA during my examination. Per his caregiver, the patient was able to successfully eat breakfast and take his AM medications without issue. They have continued using the minced and moist diet as recommended by speech n previous admissions. Discharge Exam General: dysmorphic appearance, improvement in energy/interaction, making no ises, moving around and pulling at things, much more alert compared to two days ago, chronically ill appearing mouth- mmm, no tracheal deviation Resp: not tachypneic, on room air, bilateral rales/crackles in the bases, no further wheezing,, decreased BSin base on the RIGHT (improved), on room air CV: RRR, slightly quiet HS, no m/r/g, trace b/l LE edema, pulses palpable GI: +BS, nontender ; external catheter draining clear yellow urine Psych/Neuro: alert to voice/name, nonverbal/CP at baseline, Discharge Data Allergies Allergy/AdvReac Type Severity Reaction Status Date / Time metoclopramide Allergy Intermediate Agitation Verified 06/16/22 11:05 grapefruit Allergy Mild nasal Verified 06/16/22 11:05 congestion chocolate flavor Allergy Unknown Unknown Verified 06/16/22 11:05 Consultations 06/21/22 14:05 ED Decision to Admit Stat 06/21/22 14:07 ED Decision to Admit Stat Ordered Studies Chest X-Ray 06/21/22 11:31 XR chest 1V portable CLINICAL HISTORY: weakness TECHNIQUE: Single frontal radiograph of the chest was obtained. Comparison: Comparison is made to chest radiograph 06/13/[address] chest 05/02/2022 FINDINGS: No lines and tubes are seen. Cardiomegaly is noted. Airspace density is at the right lung base. Mild pulmonary edema is seen. No evidence of pleural effusion or pneumothorax. IMPRESSION: New airspace density in the right lower lobe may represent atelectasis, pneumonia, and/or aspiration. Mild pulmonary edema is noted. ACT 112: Negative or not required by law. Electronically signed by: Dylan Figueredo M.D. 06/21/2022 12:35 PM Chest X-Ray 06/23/22 08:37 XR chest 1V portable CLINICAL HISTORY: f/u aspiration pneumonia COMPARISON STUDY: Chest radiograph June 21, 2022. Chest CT May 02, 2022. FINDINGS: There is no pneumothorax. Small bilateral pleural fusions are noted. Bilateral airspace opacities have significantly progressed. Interstitial thickening is again noted. Cardiomediastinal silhouette is stable. IMPRESSION: 1. Progression of extensive bilateral lower lobe consolidation suggestive of pneumonia or aspiration pneumonitis. 2. Interstitial thickening which favors pulmonary edema. 3. Small bilateral pleural effusions. ACT 112: Negative or not required by law. Electronically signed by: Marshal Xie M.D. 06/23/2022 12:07 PM Chest X-Ray 06/24/22 06:00 XR chest 1V not portable HISTORY: f/u aspiration pneumonia COMPARISON: Chest 06/23/2022. FINDINGS: No pneumothorax. There is a small right pleural effusion which is increased in size. Right mid to lower lung zone airspace opacities are again noted and likely represents a pneumonia. Patchy left basilar densities persist. The heart remains enlarged. There is mild interstitial pulmonary edema, unchanged. IMPRESSION: 1. Mild interstitial pulmonary edema with increase in size in the small right pleural effusion. 2. Bilateral lower lobe airspace opacities persist and likely represent a pneumonia. ACT 112: Negative or not required by law. Electronically signed by: Joe Fleming M.D. 06/24/2022 1:08 PM Chest X-Ray 06/25/22 06:00 XR chest 1V portable HISTORY: Shortness of breath. COMPARISON: Chest 06/24/2022. FINDINGS: No pneumothorax. The cardiac silhouette remains enlarged. There is pulmonary edema, a small right pleural effusion, and right basilar densities. This is similar to the prior study. Probable trace left pleural effusion. IMPRESSION: No change in the pulmonary edema, small right pleural effusion, and right basilar densities. ACT 112: Negative or not required by law. Electronically signed by: Joe Fleming M.D. 06/25/2022 12:02 PM Chest X-Ray 06/26/22 09:13 XR chest 1V portable CLINICAL HISTORY: f/u TECHNIQUE: Single frontal radiograph of the chest was obtained. Comparison: Comparison is made to chest radiograph 06/25/2022 FINDINGS: No lines and tubes are seen. Cardiomegaly is noted. Prominence and cephalization of the vasculature is seen. This is less prominent than in the prior exam. Interval improvement in right lower lung airspace opacity. Possible small bilateral pleural effusions. IMPRESSION: Interval improvement in pulmonary edema. Right lower lung airspace opacity is less conspicuous than in the prior exam and may represent improving atelectasis, pneumonia, and/or aspiration. Stable trace bilateral pleural effusions. ACT 112: Negative or not required by law. Electronically signed by: Dylan Figueredo M.D. 06/26/2022 3:17 PM Chest X-Ray 06/27/22 09:40 SINGLE VIEW CHEST CLINICAL HISTORY: Dyspnea. FINDINGS: An AP, portable, upright chest radiograph is compared to study dated 06/26/2022. The examination is degraded by portable technique and patient rotation. The heart is enlarged. There is pulmonary vascular congestion. Bilateral airspace opacities are similar to previous. Small pleural effusions are noted. No pneumothorax is seen. The skeletal structures are osteopenic. The bony thorax is grossly intact. IMPRESSION: 1. Cardiomegaly with evidence of congestive failure 2. Bilateral airspace opacities likely represent pulmonary edema. Correlate clinically for evidence of a superimposed infectious/inflammatory pneumonitis. 3. Small pleural effusions are noted. ACT 112: Negative or not required by law. Electronically signed by: Vaughn Santana M.D. 06/27/2022 10:[address] 06/27/22 15:34 CT SCAN OF THE CHEST WITH IV CONTRAST CLINICAL HISTORY: Aspiration pneumonia. COMPARISON STUDY: Chest x-ray dated 06/27/2022. Chest CT dated 05/02/2022. TECHNIQUE: Following the IV administration of 87 cc of Optiray 350, CT scan of the thorax was performed from the thoracic inlet to the upper abdomen. Images are reviewed in the axial, sagittal, and coronal planes. IV contrast was administered without complication. A dose lowering technique was utilized adhering to the principles of ALARA. The examination is degraded by motion artifact, as well as by streak artifact from the arms which could not be identified in the chest. CT DOSE: 253.46 mGy.cm FINDINGS: Thyroid: Imaged portions of the thyroid gland are normal in size and attenuation. Thoracic aorta: The thoracic aorta is normal in caliber and demonstrates bovine variant arch anatomy. No dissection is seen. Pulmonary vasculature: The pulmonary trunk is normal in caliber. There are no filling defects identified in the central pulmonary vessels to indicate pulmonary embolus. Note that this examination was not protocoled for evaluation of the pulmonary arteries. Heart: The heart is top normal in size and without pericardial effusion. The coronary arteries are densely calcified. Lungs and pleural spaces: Evaluation of the lung parenchyma is significantly degraded by motion artifact. Secretions are noted within the trachea. There are small to moderate right and small left pleural effusions with associated atelectasis. There is mild patchy airspace consolidation seen throughout both l ungs with foci of tree-in-bud nodularity. Dense airspace consolidation is seen in the right middle and right lower lobes. No pneumothorax is identified. Mediastinum: Subcentimeter mediastinal lymph nodes are not pathologically enlarged by size criteria. Juliet: Clear. Axillae: There is no axillary lymphadenopathy. Upper abdomen: There is a moderate hiatal hernia. Partially visualized upper a bdominal viscera is otherwise grossly unremarkable. Skeletal structures: The skeletal structures are osteopenic. Degenerative change and scoliosis is noted in the thoracic spine. No lytic or blastic bony lesions are seen. IMPRESSION: 1. Significantly streak and motion compromised examination. 2. Multifocal airspace consolidation as above. The appearance is typical for pneumonia/aspiration pneumonitis. Clinical correlation will be required and radiographic follow-up to resolution is recommended. 3. Right larger than left pleural effusions with dependent atelectasis. 4. Moderate hiatal hernia. 5. Additional findings as above. ACT 112: Negative or not required by law. Electronically signed by: Vaughn Santana M.D. 06/27/2022 6:38 PM Hospital Course (1) Aspiration pneumonia: Just completed 7+ day course of Augmentin for pneumonia as outpatient -- was still on abx per aide in room on admission Despite such he did not improve. Ongoing RLL pneumonia on cxr at admission. Respiratory biofire obtained given group living situation --> NEGATIVE Day #8 of IV zosyn, STOPPED after discussion with pulm below, also completed 5 days DOXY BID MRSA swab negative Speech consulted -- continue minced/moist. Doesn't have true dysphagia and aspiration but instead a very tortuous esophagus which can lend itself to esophageal dysmotility. Aspiration precautions, HOB elevation Prior added Decadron IV for wheezing/low BP and coritsol not elevated as expected given illness Titrated, then weaned off 06/27 as suspected volume overload BNP checked, elevated Diuretics initiated and IVF discontinued 06/22 Lasix 20mg, increased to PO BID with improvement in CXR and lung exam CXR 06/27 with cardiomegaly with evidence of congestive failure, b/l airspace opacities likely resp pulm edema, correlate clinically for infectious/inflammatory pneumonitis suspect also chronically aspirating at baseline ECHO w/o valvular heart disease, EF normal, however technically difficult study Ordered lasix 20mg IV for afternoon 06/[address] chest obtained for further eval given ongoing issues (prior CT chest in April also rec f/u in 3 months as well) 06/[address] chest w/ pulm Appears more pneumonitis from chronic aspirations, but still w/ effusions--> felt clinical picture w/ improvement in opacities and no further abx given procal 0.15 BPs improved overall w/ diuretics compared to last weel Scheduled Lasix 20mg IV daily for now (given additional dose evening 06/27 in addition to 10mg PO in AM) but in hopes of getting patient back to [facility] tomorrow as discussed with Dr Daniels, recs to give additional 20mg IV lasix evening 06/28 and Continue 40mg PO lasix daily HR 90-100s today, was going to resume propranolol, however rates to 80s this afternoon and will hold off while continuing to diurese Will contact Dr Xie regarding medication changes at discharge (2) Sepsis: 2nd to #1 Low BPs HOLDing propranolol , ?need to resume at all IVF ordered, stopped, decadron decreased and discontinued urine cx no growth BCx NGTD BPs improved with diuretics (3) Hypotension: hold propranolol, topimax suspect related to infection initially, however BPs always borderline --> then with volume overload given worsening hypotension with steroids and fluid retention (aide reported couple weeks edema to patients feet/legs) BPs stable and actually improved with diuretics, as well as Venofer replacement (THIRD DOSE 06/28 ) for his iron deficiency anemia monitor on lasix, off propranolol (4) Esophageal abnormality: h/o tortuous esophagus long-standing swallowing and esophageal issues from such cont PPI bid -- continued IV for now, switched back to PO speech consulted as above (5) Cerebral palsy: Per caregivers, baseline neurologic status is more alert than what he is currently demonstrating Smiles, laughs, will intermittently yell When feeling better, assist with transitions and likes to go around on his motorized wheelchair -- per aide in room hasn't been doing that for the month she's been with him and he likes to be in his recliner chair More awake/alert --> wanting to get into chair and moving around a lot be tter, LAUGHING 06/27 remaining stable 06/28 (6) Paroxysmal atrial tachycardia: history of such due to low BPs - HOLD Propranolol no Arrhythmia seen since admission, HR has been sinus in the 50-60s off this medication, then 60-70s on 06/26 Currently 90-100 NSR on monitor -- may need to resume propranolol, possibly smaller dose Did discontinue Decadron, will monitor for now (7) Epilepsy: Continued Depakote, Keppra, Ativan, and -- made the depakote, keppra, ativan IV for now , changed back to PO and tolerating Topamax on hold for borderline BPS, no seizure activity since off of this medication Consider discontinuing the Topamax? Maintain seizure precautions -- no witnessed since admission (8) GERD (gastroesophageal reflux disease): Continue protonix and carafate continue to monitor mag (9) PAD (peripheral artery disease): continue aspirin (10) Severe intellectual disabilities: (11) Anemia: iron studies w/ low iron/trans % sat Venofer provided 200mg on 06/26, 06/27, 06/28, will repeat dose for AM Hgb stable on repeat and w/ diuretics No bleeding reported -- aides always report stools brown (12) DVT prophylaxis: has h/o upper GI bleed however, EGD 05/2022 with normal stomach/duodenum (done for grape food impactio n) risk of DVT - given bedbound status - outweighs any risk of heparin SC thus start heparin 5000 BID - continue while inpatient no bleeding reported Plan continued inpatient stay, diuretics as outlined stopped abx per discussion with pulmonary upon review of CT discussed medication changes with Dr Xie this evening, ok w/ stopping the propranolol/topimax, making bowel regimen prn, etc. Will update Discharge Plan Discharge Items Reason For Visit: GENERALIZED WEAKNESS Follow-up/Referrals: Sofia Xie MD [Primary Care Provider] - Medications and DC Order Prescriptions: No Action (DME) misc Misc See Rx Instructions .ROUTE .MEDSUPPLY Qty: 1 0RF Rx Instructions: As directed- May cut Keppra tabs and Potassium tabs in HALF for easier admin. (DME) Briefs Medium Misc See Rx Instructions .ROUTE .MEDSUPPLY Qty: 100 5RF Rx Instructions: Medium Briefs polyethylene glycol 3350 17 gram/dose powder 17 g PO .COMPLEX Qty: 765 5RF Rx Instructions: 17 grams PO Every 3 days and as needed daily; if not bowel movement in 3 days diazepam [Diastat AcuDial] 5-7.5-10 mg kit 7.5 mg OK UD PRN (Reason: seizure activity) Qty: 1 0RF Rx Instructions: Give 1 dose rectally if seizure lasts longer than 5 minutes and call 911 miscellaneous medical supply [facility] [place] miscellaneous ONCE Qty: 1 0RF Rx Instructions: REPLACEMENT ARM PAD FOR A WHEELCHAIR propranolol 10 mg tablet See Rx Instructions .ROUTE .COMPLEX Qty: 56 5RF Dose Instruction: TAKE ONE TABLET BY MOUTH TWICE DAILY. *RAPID HEART* Rx Instructions: TAKE ONE TABLET BY MOUTH TWICE DAILY. *RAPID HEART* Lubriderm Daily Moisture Lotion 1 applic topical BID Qty: 710 5RF topiramate 100 mg tablet 100 mg PO BID 90 Days Qty: 180 1RF (DME) [place] [facility] See Rx Instructions .Route Qty: 1 0RF Rx Instructions: As directed clotrimazole 1 % cream 1 applic topical BID 14 Days Qty: 45 2RF levetiracetam [Keppra] 100 mg/mL solution 1,500 mg PO BID 30 Days Qty: 900 8RF divalproex 125 mg capsule, delayed rel sprinkle 750 mg PO BID 30 Days Qty: 360 8RF cholecalciferol (vitamin D3) 25 mcg (1,000 unit) capsule 25 mcg PO DAILY Qty: 90 3RF potassium chloride 10 mEq capsule, extended release 10 meq PO DAILY Qty: 90 3RF Rx Instructions: Capsule can be opened and sprinkled on soft food. (DME) Manual Wheelchair Device See Rx Instructions .ROUTE .MEDSUPPLY Qty: 1 0RF Rx Instructions: As directed aspirin 81 mg tablet,delayed release (DR/EC) 81 mg PO QAM triamcinolone acetonide 0.1 % cream 1 applic TOPICAL BID PRN (Reason: rash) Qty: 30 1RF Rx Instructions: Do not apply in same spot for longer than two weeks. lorazepam 0.5 mg tablet 0.5 mg PO BID Qty: 60 5RF acetaminophen 325 mg Tablet 650 mg PO Q6H MDD 3 GRAMS/24 HOURS PRN (Reason: Fever Or Pain) Rx Instructions: NEEDED FOR HEADACHE/MINOR ACHES AND PAIN OR TEMPERATURE GREATER THAN 100 F Debrox 6.5 % Drops 2 drp OTB 3XWK clindamycin phosphate [Cleocin T] 1 % solution 1 applic topical QAM Rx Instructions: APPLY DIRECTED TO SCALP ketoconazole [Nizoral] 2 % Shampoo 1 applic TOPICAL 2XWK Rx Instructions: USE SHAMPOO TO SCALP EVERY TUESDAY AND TUESDAY Robitussin Cough-Chest Francisco Javier DM 5-100 mg/5 mL Liquid 5 ml PO QID PRN (Reason: Congestion) Saline Nasal 0.65 % Aerosol,[place] 1 spray INTRANASAL TID PRN (Reason: Dry Nasal Passages) [place] Saline Gel [place],Non-Aerosol 1 spray INTRANASAL BID docusate sodium [Stool Softener] 100 mg capsule 100 mg PO QAM loperamide [Imodium A-D] 2 mg capsule 2 mg PO UD PRN (Reason: Diarrhea) Label Comments: TAKE 2 TABLETS AT ONSET OF LOOSE STOOL THEN TAKE 1 TABLET AFTER EACH LOOSE BOWEL MOVEMENT. TAKE NO MORE THAN 4 DOSES IN 2 DAYS. Tylenol Cold Max Day 5-10-325 mg Tablet 2 tab PO DIRECTED PRN (Reason: Cold Symptoms) alum-mag hydroxide-simeth [Antacid-Simethicone] 400-400-40 mg/5 mL Suspension 30 ml PO Q4H PRN (Reason: UPSET STOMACH/VOMITING) sertraline 50 mg tablet 50 mg PO QAM loratadine [Claritin] 10 mg tablet 10 mg PO QAM Aquaphor Healing 41 % ointment 1 applic TOPICAL HS Triple Antibiotic 3.5mg-400 unit- 5,000 unit/gram Ointment 1 applic TOPICAL BID FlorastorKids 250 mg powder in packet 250 mg PO BID 10 Days Qty: 20 0RF amoxicillin-pot clavulanate 400-57 mg/5 mL suspension for reconstitution 11 ml PO Q12H 10 Days Qty: 220 0RF ondansetron 4 mg tablet,disintegrating 4 mg PO Q6H PRN (Reason: nausea and vomiting) Qty: 14 0RF cyanocobalamin (vitamin B-12) 1,000 mcg capsule 1,000 mcg PO QAM sucralfate 100 mg/mL Suspension 1 g PO QID Qty: 400 0RF pantoprazole [Protonix] 40 mg tablet,delayed release (DR/EC) 40 mg PO BID Qty: 90 3RF Rx Instructions: Take 1 tablet by mouth twice daily for one month then return to once a day, one hour prior to the first meal of the day. Admission Data Admit Date/Time: 06/21/22 14:15 Attending Provider: Balwinder Mccartney Admit Provider: Balwinder Mccartney Primary Care Provider: Sofia Xie Other Providers: Ken Jackson ; Balwinder Mccartney ; [facility] Coding Diagnoses Aspiration pneumonia J69.0 Sepsis A41.9 Hypotension I95.9 Esophageal abnormality K22.9 Cerebral palsy G80.9 Paroxysmal atrial tachycardia I47.1 Epilepsy G40.909 GERD (gastroesophageal reflux disease) K21.9 PAD (peripheral artery disease) I73.9 Severe intellectual disabilities F72 Anemia D64.9 DVT prophylaxis Z29.9
[2022-06-29] MEDS: SUCRALFATE 1 GM/10 ML UDC PO SCH ×4 (10:41→20:26)
--- NOTE | 2022-06-29 11:20 | XRay Report ---
XR chest 1V portable HISTORY: 62 years-old Male f/u follow-up study in a patient with pulmonary opacities and shortness o f breath COMPARISON: Chest CT 06/27/2022 TECHNIQUE: AP view of the chest FINDINGS: Cardiomediastinal and hilar silhouettes are within normal limits. Mixed interstitial and alveolar opa cities are redemonstrated with mildly improved aeration of the lungs compared to the prior study. Sma ll pleural effusions have decreased in size. Degenerative changes of the shoulders and spine. IMPRESSION: 1. Bilateral mixed interstitial and alveolar opacities have mildly improved compared to the 05/28/2022 exam. 2. Decreased size of the small pleural effusions. ACT 112: Negative or not required by law. The above report was generated using voice recognition software. It may contain grammatical, syntax o r spelling errors. Electronically signed by: Torsten Hester M.D. 06/29/2022 11:19 AM
--- NOTE | 2022-06-29 14:38 | Hospitalist Progress Note ---
Date of Service June 29, 2022 Assessment & Plan (1) Aspiration pneumonia: Plan: Just completed 7+ day course of Augmentin for pneumonia as outpatient -- was still on abx per aide in room on admission Despite such he did not improve. Ongoing RLL pneumonia on cxr at admission. Respiratory biofire obtained given group living situation --> NEGATIVE Given Zosyn x 8 days, 5 days Doxy BID. MRSA nasal NEGATIvE Speech consulted -- continue minced/moist. Doesn't have true dysphagia and aspiration but instead a very tortuous esophagus which can lend itself to esophageal dysmotility. Aspiration precautions, HOB elevation Prior decadron 6mg IV BID added for wheezing/low BP wheezed off, suspect contributed to volume overload as suspected on exam BNP checked, >300. also prior admit >300 in April Started diuretics, lasix PO/IV during past week, changed to lasix 40mg IV daily previously, additional 20mg IV lasix given evening 06/28 in hopes for discharge today as prior day obtained CT chest for further eval and discussed clinical course with pulmonary during inpatient stay who felt opacities improved, chronic pneumonitis from aspiration/discontinue abx, and felt was related to diastolic heart failure and recommended continued diuretics at discharge WBC normalized on repeat, AFEBRILE CXR with continued improvement 06/29 with diuresis Unfortunately, suspect over diuresis overnight in hopes of getting back home today. Urine this morning emptied reported to be darkened/bib. Suspect could have had transient episode ATN from hypotension/diuretics as reported change w/ lunch when BPs in 80s systolic, currently 103/65 and clear yellow urine draining in tubing. --> repeat urine per nursing concern Discussed decreasing lasix to 20mg PO for AM moving forward (with monitoring of his weights for prn dosing) and will monitor overnight to prevent readmission HRs in 100 in system, but reviewed with telemetry and consistently 70-90s and stable off meds as outlined below. I did speak with Dr Xie PCP regarding medication changes as requested by home nursing staff. Ok with outlined changes Will anticipate d/c back to long term tomorrow (2) Sepsis: Plan: 2nd to above, improved (3) Hypotension: Plan: BPs stable off proproanolol/topimax, however suspect drop from increased diuretics, which while no longer on steroids, will decrease to 20mg PO for AM BP stable currently 103/65 but did have drop this morning 2nd to diuretics Monitor DISCONTINUED PROPRANOLOL/TOPAMAX AT D/C. Discussed with PCP (4) Esophageal abnormality: Plan: h/o tortuous esophagus long-standing swallowing and esophageal issues from such cont PPI bid -- continued IV for now, switched back to PO speech consulted as above (5) Cerebral palsy: Plan: Per caregivers, baseline neurologic status is more alert than what he is currently demonstrating Smiles, laughs, will intermittently yell Monitor w/ staff -- had been usual self this morning, but worsened w/ low BPs, now improved. Decreased diuretics for tomorrow (6) Paroxysmal atrial tachycardia: Plan: history of such stable for days off propranolol without issue on monitor rates have been 70-80/80-90s on telemetry (7) Epilepsy: Plan: Continued Depakote, Keppra, Ativan, and -- made the depakote, keppra, ativan IV for now , changed back to PO and tolerating Topamax discontinued given stability off this and limit additional pills Maintain seizure precautions -- no witnessed since admission (8) GERD (gastroesophageal reflux disease): Plan: Continue protonix and carafate continue to monitor mag (9) PAD (peripheral artery disease): Plan: aspirin (10) Severe intellectual disabilities: (11) Anemia: Plan: iron studies w/ low iron/trans % sat Venofer provided 200mg on 06/26, 06/27, 06/28. hold off further dosing to prevent hypotension Hgb stable/improved on repeat 10.8 No bleeding reported -- aides always report stools brown (12) DVT prophylaxis: Plan: has h/o upper GI bleed however, EGD 05/2022 with normal stomach/duodenum (done for grape food impaction) risk of DVT - given bedbound status - outweighs any risk of heparin SC thus start heparin 5000 BID - continue while inpatient no bleeding reported Plan will continue to monitor overnight to ensure stays stable and plan for d/c back to [facility] tomorrow repeat urine cx for concerns from aides, however urine in tubing upon re-eval was clear yellow medications reconciled for discharge tomorrow/conveyed to [facility] staff and PCP Dr Xie Admission and Anticipated Discharge Date Admission Date: June 21, 2022 Subjective patient evaluated this morning slept from 10pm -3am and was up since then, now a little sleepy no issues breathing, CXR improved planned on dc however this afternoon home RN came in and patient more lethargic , reported darkened/bib urine (rivera just emptied), but currently tubing with clear yellow drainage. Temp 97F axillary discussed low grade temps, atelectasis could also be contributing aide reported more lethargic after lunch, no choking reported review of BPs w/ hypotension around 11am, could have had a little ATN from over diuresis. Will check UA for completeness for their concerns. WBC normal off abx. discussed labs stable/Cr stable, could be from overdiuresis and planned to decreased lasix to 20mg for AM. Dicussion had to continue to monitor overnight and plan for d/c tomorrow. Review of Systems Review of Systems: All systems reviewed & are unremarkable except as noted in HPI & below Physical Exam Physical Exam: General: dysmorphic appearance, improvement in energy/interaction, little more sleepy first thing this morning but had been up since 3am per current aide at bedside, NAD, chronically ill appearing mouth- mmm, no tracheal deviation Resp: not tachypneic, on room air, bilateral rales/crackles in the bases, no further wheezing,, decreased BS in base on the RIGHT (much improved), on room air CV: RRR, slightly quiet HS, no m/r/g, trace pedal edema, pulses palpable GI: +BS, nontender ; external catheter draining clear yellow urine in tubing (prior reports bib color) Psych/Neuro: alert to voice/name, nonverbal/CP at baseline, Results & Data Results & Data ([facility]) Vital Signs (Past 12 Hours) Vital Signs Temp Pulse Pulse Pulse Resp BP BP 06/29/22 13:33 36.7 C 71 80 18 103/65 87/55 L 06/29/22 06:19 75 06/29/22 08:00 06/29/22 11:39 06/29/22 11:35 36.7 C 80 18 87/55 L 06/29/22 07:44 37.0 C 101 H 20 100/64 06/29/22 04:51 36.5 C 79 16 103/65 BP BP Pulse Ox O2 Del Method 06/29/22 13:33 103/58 L 94/54 L 97 06/29/22 06:19 06/29/22 08:00 Room Air 06/29/22 11:39 94/54 L 06/29/22 11:35 97 Room Air 06/29/22 07:44 94 Room Air 06/29/22 04:51 92 Room Air Diagnostic Findings 06/29/22 06/29/22 06/25/22 Range/Units 07:29 07:29 18:05 WBC 7.94 (4.8-10.8) K/ul RBC 3.61 L (4.63-6.08) M/uL Hgb 10.8 L (14.0-18.0) g/dl Hct 32.6 L (40.1-51.0) % MCV 90.3 (80.0-100.0) fL MCH 29.9 (25.0-34.0) pg MCHC 33.1 (32.0-36.0) g/dL RDW Std Deviation 53.6 H (36.4-46.3) fL RDW Coeff of [place] 17.1 H (11.5-14.5) % Plt Count 302 (130-400) K/uL MPV 9.8 (9.4-12.4) fL Immature Gran % (Auto) 1.4 % Neut % (Auto) 49.8 % Lymph % (Auto) 30.0 % [place] % (Auto) 11.8 % Eos % (Auto) 6.5 % Baso % (Auto) 0.5 % Neut # (Auto) 3.95 (1.4-6.5) K/uL Lymph # (Auto) 2.38 (1.2-3.4) K/uL [place] # (Auto) 0.94 H (0.24-0.82) K/uL Eos # (Auto) 0.52 H (0-0.50) K/uL Baso # (Auto) 0.04 (0-0.2) K/uL Immature Gran # (Auto) 0.11 H (0.00-0.02) K/uL Sodium 142 (136-145) mmol/L Potassium 3.7 (3.5-5.1) mmol/L Chloride 107 (98-107) mmol/L Carbon Dioxide 28 (21-32) mmol/L Anion Gap 7 (3-11) BUN 21 (6-23) mg/dl Creatinine 0.68 (0.6-1.4) mg/dl Est Cr Clr Drug Dosing 94.4 ml/min Est GFR ( Amer) 120.3 ml/min Est GFR (Non-Af Amer) 103.8 ml/min BUN/Creatinine Ratio 30.9 H (10-20) Glucose 88 (70-99(Fasting)) mg/dl Calcium 9.1 (8.5-10.1) mg/dl Magnesium 2.1 (1.7-2.4) mg/dl Urine Legionella Ag SEE NOTE PG Care Time/CCT Total # of Minutes Spent Total Time Spent with Patient: Total time spent is greater than 50% in coordination of care (as documented) at patient's floor/unit and/or counseling patient: Coding Level of Care Code 64046 Subseq Hosp Care Lvl 3 Diagnoses Aspiration pneumonia J69.0 Sepsis A41.9 Hypotension I95.9 Esophageal abnormality K22.9 Cerebral palsy G80.9 Paroxysmal atrial tachycardia I47.1 Epilepsy G40.909 GERD (gastroesophageal reflux disease) K21.9 PAD (peripheral artery disease) I73.9 Severe intellectual disabilities F72 Anemia D64.9 DVT prophylaxis Z29.9
[2022-06-30] MEDS: SUCRALFATE 1 GM/10 ML UDC PO SCH ×2 (06:15→10:18)
[2022-06-30 08:32] LABS: Hemoglobin 11.3 g/dl (14.0-18.0); Mean Corpuscular Hemoglobin 30.2 pg (25.0-34.0); Mean Corpuscular Hgb Conc 32.3 g/dL (32.0-36.0); Mean Corpuscular Volume 93.6 fL (80.0-100.0); Mean Platelet Volume 9.7 fL (9.4-12.4); Platelet Count 313 K/uL (130-400); RDW Coefficient of Variation 17.5 % (11.5-14.5); RDW Standard Deviation 55.2 fL (36.4-46.3); Red Blood Count 3.74 M/uL (4.63-6.08); White Blood Count 7.66 K/ul (4.8-10.8)
[2022-06-30] MEDS ORDERED: FUROSEMIDE 20 MG TAB PO SCH (09:00)
[2022-06-30 09:06] LABS: BUN Creatinine Ratio 29.4 (10-20); Calcium 9.1 mg/dl (8.5-10.1); Est GFR (African American) 120.3 ml/min; Est GFR (Non-African American) 103.8 ml/min; Magnesium 2.1 mg/dl (1.7-2.4); Potassium 3.7 mmol/L (3.5-5.1)
[2022-06-30] MEDS: HEPARIN SOD 5,000 UNIT/0.5 ML VIAL SQ SCH (09:24)
[2022-06-30] MEDS: DIVALPROEX SODIUM SPRINKLE/DEL-REL 125 MG CAP PO SCH (09:24)
[2022-06-30] MEDS: PANTOprazole 40 MG TAB PO SCH (09:24)
[2022-06-30] MEDS: SERTRALINE HCL 50 MG TABLET PO SCH (09:24)
[2022-06-30] MEDS: POTASSIUM CHLORIDE 10 MEQ TABCR PO SCH (09:24)
[2022-06-30] MEDS: levETIRAcetam ORAL SOLN 100MG/ML PO SCH (09:25)
[2022-06-30] MEDS: LORazepam 0.5 MG TAB PO SCH (09:51)
--- NOTE | 2022-06-30 17:02 | Discharge Summary ---
Date of Service June 30, 2022 Admission HPI Per Admitting Provider Raz is a 62yo M w/ hx of cerebral palsy, seizures, recurrent aspiration pneumonia due to tortuous esophagus, GERD, paroxysmal atrial tachycardia, PAD, who presented to the [facility] ED on 06/21/22 with a chief complaint of generalized weakness. Per the ED staff, the patient's caregivers state that the patient has been on Augmentin for aspiration pneumonia for which he was seen for in the [facility] ED on 06/14/22; she states that today would have been day #8 of treatment. She states that nursing staff reported an episode of emesis and hypoxia (89% on RA) early this am around 0200. When asked, the caregiver states that his emesis was not bloody and did not appear like coffee grounds like his previous GI bleeds, she states that it looked as though he vomited last night's dinner. She states that the nursing staff also reported a fever of 100.6 F this morning as well. The patient is not on oxygen at baseline. Normally he is more alert, will yell at times, and is able to assist with transitions such as grabbing the side of the bed and turning when he needs to be wiped after a bowel movement. In the Ed the patient was found to be afebrile, hemodynamically stable, and stable on RA. Labs were remarkable for a leukocytosis of 11.65 with absolute neutrophils of 7.95, stable Hgb, Bicarb of 19, stable renal function, glucose WNL, TSH WNL. Chest xray showed "New airspace density in the right lower lobe may represent atelectasis, pneumonia, and/or aspiration. Mild pulmonary edema is noted.". Suspected to have aspiration PNA, he completed a course of antibiotics. Principal Diagnosis Aspiration PNA Discharge Exam The patient is awake, alert moslty non verbal HEENT--PERRL, EOMI, mucous membranes and oropharynx mildly dry Neck--supple. No JVD. No bruits. Thyroid normal, trachea midline, no adenopathy. Heart--normal S1 and S2. No murmurs, rubs or gallops. Lungs--clear bilaterally, no respiratory distress, no accessory muscle use. Abdomen--normal bowel sounds and soft. Mild epigastric and left sided abdominal pain Extremities--contracted extremities Dermatologic--normal skin turgor, normal color, no abnormal lymph nodes, no rash. Neurologic--cranial nerves II through XII grossly intact. Rheumatologic--normal range of motion. Psychiatric--normal affect. Discharge Data Allergies Allergy/AdvReac Type Severity Reaction Status Date / Time metoclopramide Allergy Intermediate Agitation Verified 06/16/22 11:05 grapefruit Allergy Mild nasal Verified 06/16/22 11:05 congestion chocolate flavor Allergy Unknown Unknown Verified 06/16/22 11:05 Consultations 06/21/22 14:05 ED Decision to Admit Stat 06/21/22 14:07 ED Decision to Admit Stat Ordered Studies 06/27/22 15:34 CT chest diagnostic w con Routine Hospital Course (1) Aspiration pneumonia: Just completed 7+ day course of Augmentin for pneumonia as outpatient -- was still on abx per aide in room on admission Despite such he did not improve. Ongoing RLL pneumonia on cxr at admission. Respiratory biofire obtained given group living situation --> NEGATIVE Given Zosyn x 8 days, 5 days Doxy BID. MRSA nasal NEGATIvE Speech consulted -- continue minced/moist. Doesn't have true dysphagia and aspiration but instead a very tortuous esophagus which can lend itself to esophageal dysmotility. Aspiration precautions, HOB elevation Prior decadron 6mg IV BID added for wheezing/low BP wheezed off, suspect contributed to volume overload as suspected on exam BNP checked, >300. also prior admit >300 in April Started diuretics, lasix PO/IV during past week, changed to lasix 40mg IV daily previously, additional 20mg IV lasix given evening 06/28 in hopes for discharge today as prior day obtained CT chest for further eval and discussed clinical course with pulmonary during inpatient stay who felt opacities improved, chronic pneumonitis from aspiration/discontinue abx, and felt was related to diastolic heart failure and recommended continued diuretics at discharge WBC normalized on repeat, AFEBRILE CXR with continued improvement 06/29 with diuresis Unfortunately, suspect over diuresis overnight in hopes of getting back home today. Urine this morning emptied reported to be darkened/bib. Suspect could have had transient episode ATN from hypotension/diuretics as reported change w/ lunch when BPs in 80s systolic, currently 103/65 and clear yellow urine draining in tubing. --> repeat urine per nursing concern Discussed decreasing lasix to 20mg PO for AM moving forward (with monitoring of his weights for prn dosing) and will monitor overnight to prevent readmission HRs in 100 in system, but reviewed with telemetry and consistently 70-90s and stable off meds as outlined below. I did speak with Dr Xie PCP regarding medication changes as requested by home nursing staff. Ok with outlined changes Will anticipate d/c back to skilled nursing tomorrow (2) Seizure: Total Time Total Time Spent Total Time Spent (In Minutes): 35 Discharge Plan Discharge Items Patient Disposition: Personal Prison Reason For Visit: GENERALIZED WEAKNESS Discharge Diagnosis: Aspiration Pneumonia, Diastolic CHF Goals: You have been hospitalized for an acute medical problem. During your stay at [facility], we have made an effort to correct the problem that brought you to the hospital while keeping you as comfortable as possible. Medications were used to bring your condition under control and your discharge instructions will include directions for any medications you should take after leaving the hospital. Please make sure you see your Primary Care Provider as part of your follow up plan. Activity: Resume your previous activity Non-emergency contact: Primary Care Provider Call non-emergency contact if: you have any medication questions, your symptoms worsen and you have a fever Follow-up/Referrals: Sofia Xie MD [Primary Care Provider] - Diet: Heart Healthy Diet Comment: MINCED AND MOIST Addtl Attending Provider Instructions: You have been hospitalized for weakness, aspiration pneumonia. You completed a course of antibiotics, and there were also steroids provided for low blood pressures. We stopped the steroids, and I obtained a CT chest and discussed findings with the electro mechanical technologist while in the hospital. He felt the opacities suggestive of pneumonia had improved, especially compared to study from april, and to stop antibiotics as you had a complete course in the hospital and given improvement with diuretics, this was felt to be from volume overload and you were given additional diuretics and are to continue on Lasix 20mg daily. Repeat CXR report showed improvement in the opacities and decrease in the effusions with diuretics. You may always have these findings with lower opacities in the base with chronic aspiration, and these were no longer felt to be infectious. You should continue to monitor weights daily and call PCP if weight gain >3lb in a day or 5lb in a week to see about additional dosing of Lasix. I discussed medication changes and discontinuation of the propranolol twice daily as your heart rates have been consistently between 70-90s on heart monitor and this can cause low blood pressure. We also stopped the Topamax as this was also on hold and you had no evidence for seizure activity off of this. Your depakote level was checked and was normal. Given recent check, if any worsening symptoms could consider repeating outpatient in a month. Your bowel regimen has been changed to as needed as these were also held and you have had daily bowel movements without this. If you do not have a bowel movement in over 24 hours, would resume dosing until bowel movement is had. I also gave you replacement of iron while in the hospital for anemia. No bleeding observed and could have been from your prior bleeding. Hemoglobin has improved. Please follow up with primary care in the next 7-10 days to monitor your progress. Please return to the ER with any worsening symptoms or for any symptoms concerning for you. It has been a pleasure being a part of the medical team providing for you while you have been in the hospital. Take care! Pending Studies at Discharge: No Stand-Alone Forms: My [facility] Skilled Items Patient informed of condition?: Yes DNR: Yes Discharge Level of Care: Other Communicable Disease: No Discharge Prognosis: Stable Lines: None Urinary Catheter: No Medications and DC Order Prescriptions: New furosemide 20 mg Tablet 20 mg PO QAM Qty: 30 0RF Continued (DME) [facility] See Rx Instructions .ROUTE .MEDSUPPLY Qty: 1 0RF Rx Instructions: As directed- May cut Keppra tabs and Potassium tabs in HALF for easier admin. (DME) Briefs Medium [facility] [place] See Rx Instructions .ROUTE .MEDSUPPLY Qty: 100 5RF Rx Instructions: Medium Briefs polyethylene glycol 3350 17 gram/dose powder 17 g PO .COMPLEX Qty: 765 5RF Rx Instructions: 17 grams PO Every 3 days and as needed daily; if not bowel movement in 3 days diazepam [Diastat AcuDial] 5-7.5-10 mg kit 7.5 mg MN UD PRN (Reason: seizure activity) Qty: 1 0RF Rx Instructions: Give 1 dose rectally if seizure lasts longer than 5 minutes and call 911 miscellaneous medical supply [facility] [place] 1 ea miscellaneous ONCE Qty: 1 0RF Rx Instructions: REPLACEMENT ARM PAD FOR A WHEELCHAIR Lubriderm Daily Moisture Lotion 1 applic topical BID Qty: 710 5RF (DME) Hospital Bed [facility] [place] See Rx Instructions .Route Qty: 1 0RF Rx Instructions: As directed clotrimazole 1 % cream 1 applic topical BID 14 Days Qty: 45 2RF levetiracetam [Keppra] 100 mg/mL solution 1,500 mg PO BID 30 Days Qty: 900 8RF divalproex 125 mg capsule, delayed rel sprinkle 750 mg PO BID 30 Days Qty: 360 8RF (DME) Manual Wheelchair Device See Rx Instructions .ROUTE .MEDSUPPLY Qty: 1 0RF Rx Instructions: As directed aspirin 81 mg tablet,delayed release (DR/EC) 81 mg PO QAM triamcinolone acetonide 0.1 % cream 1 applic TOPICAL BID PRN (Reason: rash) Qty: 30 1RF Rx Instructions: Do not apply in same spot for longer than two weeks. lorazepam 0.5 mg tablet 0.5 mg PO BID Qty: 60 5RF acetaminophen 325 mg Tablet 650 mg PO Q6H MDD 3 GRAMS/24 HOURS PRN (Reason: Fever Or Pain) Rx Instructions: NEEDED FOR HEADACHE/MINOR ACHES AND PAIN OR TEMPERATURE GREATER THAN 100 F Debrox 6.5 % Drops 2 drp OTB 3XWK clindamycin phosphate [Cleocin T] 1 % solution 1 applic topical QAM Rx Instructions: APPLY DIRECTED TO SCALP ketoconazole [Nizoral] 2 % Shampoo 1 applic TOPICAL 2XWK Rx Instructions: USE SHAMPOO TO SCALP EVERY TUESDAY AND TUESDAY Saline Nasal 0.65 % Aerosol,[place] 1 spray INTRANASAL TID PRN (Reason: Dry Nasal Passages) [place] Saline Gel [place],Non-Aerosol 1 spray INTRANASAL BID loperamide [Imodium A-D] 2 mg capsule 2 mg PO UD PRN (Reason: Diarrhea) Label Comments: TAKE 2 TABLETS AT ONSET OF LOOSE STOOL THEN TAKE 1 TABLET AFTER EACH LOOSE BOWEL MOVEMENT. TAKE NO MORE THAN 4 DOSES IN 2 DAYS. alum-mag hydroxide-simeth [Antacid-Simethicone] 400-400-40 mg/5 mL Suspension 30 ml PO Q4H PRN (Reason: UPSET STOMACH/VOMITING) sertraline 50 mg tablet 50 mg PO QAM loratadine [Claritin] 10 mg tablet 10 mg PO QAM Aquaphor Healing 41 % ointment 1 applic TOPICAL HS Triple Antibiotic 3.5mg-400 unit- 5,000 unit/gram Ointment 1 applic TOPICAL BID FlorastorKids 250 mg powder in packet 250 mg PO BID 10 Days Qty: 20 0RF ondansetron 4 mg tablet,disintegrating 4 mg PO Q6H PRN (Reason: nausea and vomiting) Qty: 14 0RF sucralfate 100 mg/mL Suspension 1 g PO QID Qty: 400 0RF pantoprazole [Protonix] 40 mg tablet,delayed release (DR/EC) 40 mg PO BID Qty: 90 3RF Rx Instructions: Take 1 tablet by mouth twice daily for one month then return to once a day, one hour prior to the first meal of the day. Changed potassium chloride 10 mEq capsule, extended release 20 meq PO DAILY Qty: 90 3RF Rx Instructions: Capsule can be opened and sprinkled on soft food. docusate sodium [Stool Softener] 100 mg capsule 100 mg PO QAM PRN (Reason: constipation) Qty: 7 0RF Discontinued propranolol 10 mg tablet See Rx Instructions .ROUTE .COMPLEX Qty: 56 5RF Dose Instruction: TAKE ONE TABLET BY MOUTH TWICE DAILY. *RAPID HEART* Rx Instructions: TAKE ONE TABLET BY MOUTH TWICE DAILY. *RAPID HEART* topiramate 100 mg tablet 100 mg PO BID 90 Days Qty: 180 1RF cholecalciferol (vitamin D3) 25 mcg (1,000 unit) capsule 25 mcg PO DAILY Qty: 90 3RF Robitussin Cough-Chest Francisco Javier DM 5-100 mg/5 mL Liquid 5 ml PO QID PRN (Reason: Congestion) Tylenol Cold Max Day 5-10-325 mg Tablet 2 tab PO DIRECTED PRN (Reason: Cold Symptoms) amoxicillin-pot clavulanate 400-57 mg/5 mL suspension for reconstitution 11 ml PO Q12H 10 Days Qty: 220 0RF cyanocobalamin (vitamin B-12) 1,000 mcg capsule 1,000 mcg PO QAM Discharge Orders: Discharge Order (Routine); Ordered 06/30/22 Ordered By: Ashley James Admission Data Admit Date/Time: 06/21/22 14:15 Attending Provider: Ashley James Admit Provider: Balwinder Mccartney Primary Care Provider: Sofia Xie Other Providers: Ken Jackson ; Balwinder Mccartney ; [facility] Other Interventions: Discharge Summary Assessment (RN) Last Done: 06/30/22 15:16 Coding Level of Care Code D/C DAY MANAGEMENT >30 MINS Diagnoses Aspiration pneumonia J69.0 Aspiration pneumonia type: unspecified Laterality: bilateral Lung location: unspecified part of lung Seizure R56.9 Time Spent (min) 35
--- NOTE | 2022-07-08 09:13 | Coding Query ---
SEPSIS To promote full compliance with coding requirements relating to patient care, physician participation is requested in all cases of retail service specialist uncertainty. Please assist us with the question(s) below: In responding to this query, please exercise your independent professional judgement. The fact that a question is asked does not imply that any particular answer is desired or expected. We appreciate your clarification on this issue. The medical record reflects the following clinical findings: Pt admitted with aspiration pneumonia. Progress notes documented Sepsis. Sepsis not documented in Discharge Summary. Seeking to determine if Sepsis was treated during this Inpatient stay. Please check below & thank you ! YUNG Heredia [facility] ()Bacteremia (Nonspecific laboratory finding of bacteria in the blood) Specify Organism () Present on Admission () Not present on admission (x) Unable to clinically determine () Septicemia (Systemic disease associated with the presence of pathogenic microorganisms in the blood): Specify Organism () Present on Admission () Not present on admission () Unable to clinically determine () Sepsis Specify Organism Specify Associated Condition/Diagnosis (x) Present on Admission () Not present on admission () Unable to clinically determine () Severe Sepsis (Sepsis associated with acute organ dysfunction) Specify Organism Specify Associated Condition/Diagnosis () Present on Admission () Not present on admission () Unable to clinically determine () Septic Shock (Severe sepsis with acute circulatory failure, unexplained by other causes) () Present on Admission () Not present on admission () Unable to clinically determine () Other, patient has: MTDD
== END 2022-06-30 16:18 | disposition home health service (06) | DRG 177 ==
LOC: ED 10:42 → SUATTDRO 14:15 → 2N 14:15 → 2W 06-23 02:34

== ENCOUNTER 2022-07-06 07:54 | Inpatient (IN) ==
--- NOTE | 2022-07-06 08:09 | Emergency Department Note ---
Impression & Plan Sepsis, Weakness, Acute dehydration ED Provider Note NAME: RAMIRO LAZAR AGE: 62 SEX: M : 1960 ARRIVES VIA: Ambulance INFORMANT: Patient, ED PROVIDER(S): Mamadou Mojica MD Chief Complaint: Fever, weakness HPI: Patient presents from his retirement due to concern for fever. The patient did have a fever of 104 last night. The patient did not receive any antipyretics at this time. They were concerned about the possibility of a UTI as the patient did have some foul-smelling urine. Patient is nonverbal and a history of cerebral palsy at baseline. History is limited given the patient's history. Patient presents due to concern for fever and weakness. The patient does have a known history of CP, seizures, recurrent aspiration pneumonia GERD PAD. Patient was admitted by myself back on 21 June. Patient had completed an outpatient course of antibiotics and did not improve. The patient did receive Zosyn as an inpatient in addition to Doxy. Patient may have concomitant volume overload at least during the patient's last admission patient. Patient does live in a half-way. Patient did have Lasix started at the time of discharge. ROS: Limited secondary to the patient's prior history of cerebral palsy nonverbal status. Past medical history: See below Surgical history: See below Social history: See below Physical Exam: GENERAL: NAD, non-toxic. EYE EXAM: Normal conjunctiva. PERRL, no anisocoria and EOM's grossly intact w/o pain. NECK: Supple, no nuchal rigidity, no adenopathy, non-tender. No signs of meningismus. FROM of the neck with good chin to chest and neck extension. No stridor. LUNGS: Clear to auscultation. Normal chest wall mechanics. HEART: Tachycardic and regular, no MRG. ABDOMEN: Abdomen soft, non-tender, normo-active bowel sounds, no masses, no rebound or guarding. BACK: No CVA TTP. : Circumcised bilateral testes descended, no evidence of any erythema swelling or crepitus. SKIN: No rashes and no bruising. UPPER EXTREMITIES: Upper extremities are grossly normal. LOWER EXTREMITIES: Grossly normal, no edema. NEURO EXAM: Awake and alert does not follow commands, nonverbal. Differential diagnoses: Viral syndrome, otitis, pharyngitis, pneumonia, influe nza, meningitis, urinary tract infection, sepsis, bacteremia, as well as other pathologies. Course: Patient was seen and evaluated the bedside. Full history physical exam was performed. EKG interpreted by me Sinus tachycardia, rate of 102, normal intervals normal axis no ST elevations. Imaging Studies: See Below Cardiac monitoring: An order was placed for continuous cardiac monitoring. The monitor shows a rate of 102 with tachycardic and regular rhythm. MDM: Patient was seen due to concern for fever and weakness. Blood work was obtained and the patient was ordered IV fluids. Patient was ordered empiric Zosyn. Urinalysis was also obtained. There was a significant delay in obtaining blood work. The patient did receive a total of 1 L IV fluids as the patient clinically appeared dry and does not have evidence of obvious volume overload on exam. The patient's initial blood work showed urinalysis that appears to be infected with a negative COVID flu and RSV. Patient does have ketones in the urine which likely would be consistent with dehydration. The patient initially did have a lactate and Pro-Korey completed which were not elevated. Subsequently the patient was noted have a white count of 18 with a hemoglobin of 11. Platelet count is unremarkable. Patient's kidney function is unremarkable. I did speak the on-call hospitalist Dr. Thompson and the patient was admitted to the medicine service. Chest x-ray shows improvement in the right lung airspace opacity. Trace right pleural effusion no evidence of pneumothorax. Past Med/Surg History Medical History Allergic rhinitis Alternating exotropia Anemia Anemia Aphasia Bipolar disorder Bladder carcinoma s/p TURBT 10/2021 Cataracts, both eyes Cerebral palsy Chronic constipation Chronic periodontitis Dermatitis Epilepsy Fever GERD (gastroesophageal reflux disease) History of prematurity Hyperlipidemia Microcephaly Mood disorder PAD (peripheral artery disease) Paraplegia Paroxysmal atrial tachycardia Ptosis, left eyelid Scoliosis Severe intellectual disabilities Spina bifida Surgical History H/O transurethral destruction of bladder lesion 12/2021 History of removal of neck cyst Family History Other Family history non-contributory Social History Smoking Status: Never smoker Hx Alcohol Use: No Hx Substance Use: No Preferred Language: Croatian Communication Ability: Unable Visual 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 Limited 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 Beliefs That Will Affect Care: None marital status: Single Current Living Situation: Other Current Living Situation Comment: [facility] HOME with skills PA current occupational status: disabled Feels Safe at Home: Yes caffeine: Yes Dental Care, Regularly: Yes Assistive Devices: Hospital Bed and Wheelchair Allergies Allergies Allergy/AdvReac Type Severity Reaction Status Date / Time metoclopramide Allergy Intermediate Agitation Verified 06/16/22 11:05 grapefruit Allergy Mild nasal Verified 06/16/22 11:05 congestion chocolate flavor Allergy Unknown Unknown Verified 06/16/22 11:05 Home Meds Home Medications Medication Instructions Recorded Confirmed acetaminophen 325 mg tablet 650 mg PO Q6H PRN Fever Or Pain 10/19/18 06/21/22 carbamide peroxide 6.5 % ear drops 2 drp OTB 3XWK 10/19/18 06/21/22 (Debrox) clindamycin phosphate 1 % topical 1 applic topical QAM 10/19/18 06/21/22 solution (Cleocin T) ketoconazole 2 % shampoo (Nizoral) 1 applic topical 2XWK 02/08/19 06/21/22 sodium chloride 0.65 % nasal spray 1 spray intranasal TID PRN Dry 02/08/19 06/21/22 aerosol (Saline Nasal) Nasal Passages sodium chloride-aloe vera nasal 1 spray intranasal BID 02/08/19 06/21/22 spray ([place] Saline Gel nasal spray) loperamide 2 mg capsule (Imodium 2 mg PO UD PRN Diarrhea 06/03/19 06/21/22 A-D) aluminum-mag hydroxide-simethicone 30 ml PO Q4H PRN UPSET 03/25/20 06/21/22 400 mg-400 mg-40 mg/5 mL oral susp STOMACH/VOMITING (Antacid-Simethicone) aspirin 81 mg tablet,delayed 81 mg PO QAM 11/03/21 06/21/22 release loratadine 10 mg tablet (Claritin) 10 mg PO QAM allergies 04/12/22 06/21/22 neomycin-bacitracn Zn-polymyx 3.5 1 applic topical BID 04/12/22 06/21/22 mg-400 unit-5,000 unit/gram top oint (Triple Antibiotic) sertraline 50 mg tablet 50 mg PO QAM 04/12/22 06/21/22 white petrolatum 41 % topical 1 applic topical HS 04/12/22 06/21/22 ointment (Aquaphor Healing) Previous Rx's Medication Instructions Recorded Jobst Stockings (misc) #1 ea 09/18/19 Wheelchair (Manual) (Manual #1 ea 11/07/19 Wheelchair) diaper,brief,adult,disposable #100 ea 03/19/20 (Briefs Medium) polyethylene glycol 3350 17 17 g PO .COMPLEX #765 grams 09/03/21 gram/dose oral powder diazepam 5 mg-7.5 mg-10 mg rectal 7.5 mg LA UD PRN seizure activity 10/05/21 kit (Diastat AcuDial) #1 ea triamcinolone acetonide 0.1 % 1 applic topical BID PRN rash #30 11/03/21 topical cream grams miscellaneous medical supply 1 ea miscellaneous ONCE #1 ea 11/27/21 emollient combination no.92 1 applic topical BID Dry skin #710 12/15/21 (Lubriderm Daily Moisture lotion) mL lorazepam 0.5 mg tablet 0.5 mg PO BID #60 tabs 04/29/22 Hospital Bed [facility] (Hospital #1 ea 05/11/22 Bed) clotrimazole 1 % topical cream 1 applic topical BID 2 weeks #45 05/19/22 grams pantoprazole 40 mg tablet,delayed 40 mg PO BID #90 tabs 05/27/22 release (Protonix) sucralfate 100 mg/mL oral 1 g (10 mL) PO QID #400 mL 05/27/22 suspension divalproex 125 mg capsule,delayed 750 mg PO BID 30 days #360 caps 06/02/22 release sprinkle levetiracetam 100 mg/mL oral 1,500 mg (15 mL) PO BID 30 days 06/02/22 solution (Keppra) #900 mL ondansetron 4 mg disintegrating 4 mg PO Q6H PRN nausea and 06/13/22 tablet vomiting #14 tabs furosemide 20 mg tablet 20 mg PO QAM #30 tabs 06/29/22 potassium chloride 10 mEq 20 meq PO DAILY #90 caps 06/29/22 capsule,extended release docusate sodium 100 mg capsule 100 mg PO DAILY PRN constipation 07/02/22 (Stool Softener) #90 caps Results & Data (ED) Vital Signs Vital Signs - 24 hr 07/06/22 07:48 07/06/22 08:30 07/06/22 08:30 Temperature 37.9 C H Temperature Source Oral Pulse Rate 105 H 99 H Pulse Rate from SpO2 Sensor 99 H Pulse Rhythm Regular Respiratory Rate 22 26 H Respiratory Effort / Characteristics Non-Labored Spontaneous Respiratory Depth Normal Blood Pressure 102/56 L 107/55 L Blood Pressure Mean 71 72 Pulse Oximetry 98 96 96 Oxygen Delivery Method Room Air Room Air Sepsis Recent Fever Within 48 Hours Yes Sepsis New/Unexplained Change in Mental Status No Sepsis Action Taken by Nursing Physician Notified 07/06/22 08:46 07/06/22 09:00 07/06/22 09:15 Temperature Temperature Source Pulse Rate 100 H 97 H 96 H Pulse Rate from SpO2 Sensor 100 H 98 H 96 H Pulse Rhythm Respiratory Rate 24 18 27 H Respiratory Effort / Characteristics Respiratory Depth Blood Pressure 112/55 L 101/47 L 97/56 L Blood Pressure Mean 74 65 69 Pulse Oximetry 95 97 96 Oxygen Delivery Method Room Air Room Air Room Air Sepsis Recent Fever Within 48 Hours Sepsis New/Unexplained Change in Mental Status Sepsis Action Taken by Nursing 07/06/22 09:30 07/06/22 09:45 07/06/22 10:00 Temperature Temperature Source Pulse Rate 96 H 98 H 93 H Pulse Rate from SpO2 Sensor 96 H 98 H 93 H Pulse Rhythm Respiratory Rate 25 H 20 27 H Respiratory Effort / Characteristics Respiratory Depth Blood Pressure 98/56 L 106/56 L 91/58 L Blood Pressure Mean 70 72 69 Pulse Oximetry 96 96 96 Oxygen Delivery Method Room Air Room Air Room Air Sepsis Recent Fever Within 48 Hours Sepsis New/Unexplained Change in Mental Status Sepsis Action Taken by Nursing 07/06/22 10:10 07/06/22 10:15 07/06/22 10:30 Temperature Temperature Source Pulse Rate 98 H 93 H 94 H Pulse Rate from SpO2 Sensor 97 H 92 H 93 H Pulse Rhythm Respiratory Rate 15 26 H 20 Respiratory Effort / Characteristics Respiratory Depth Blood Pressure 91/49 L 96/53 L 102/52 L Blood Pressure Mean 63 67 68 Pulse Oximetry 96 96 94 Oxygen Delivery Method Room Air Room Air Room Air Sepsis Recent Fever Within 48 Hours Sepsis New/Unexplained Change in Mental Status Sepsis Action Taken by Nursing 07/06/22 10:45 07/06/22 10:56 Temperature Temperature Source Pulse Rate 97 H 93 H Pulse Rate from SpO2 Sensor 96 H 94 H Pulse Rhythm Respiratory Rate 27 H 27 H Respiratory Effort / Characteristics Respiratory Depth Blood Pressure 90/78 L 110/58 L Blood Pressure Mean 82 75 Pulse Oximetry 95 96 Oxygen Delivery Method Room Air Room Air Sepsis Recent Fever Within 48 Hours Sepsis New/Unexplained Change in Mental Status Sepsis Action Taken by Retirement Medications Current Medication List: was personally reviewed by me Laboratory Data Attestation: I reviewed the patient's lab results. Result diagrams: 07/06/22 10:50 07/06/22 10:50 Lab Results 07/06/22 07/06/22 07/06/22 Range/Units 08:19 08:53 08:53 WBC (4.8-10.8) K/ul RBC (4.63-6.08) M/uL Hgb (14.0-18.0) g/dl Hct (40.1-51.0) % MCV (80.0-100.0) fL MCH (25.0-34.0) pg MCHC (32.0-36.0) g/dL RDW Std Deviation (36.4-46.3) fL RDW Coeff of [place] (11.5-14.5) % Plt Count (130-400) K/uL MPV (9.4-12.4) fL Immature Gran % (Auto) % Neut % (Auto) % Lymph % (Auto) % [place] % (Auto) % Eos % (Auto) % Baso % (Auto) % Neut # (Auto) (1.4-6.5) K/uL Lymph # (Auto) (1.2-3.4) K/uL [place] # (Auto) (0.24-0.82) K/uL Eos # (Auto) (0-0.50) K/uL Baso # (Auto) (0-0.2) K/uL Immature Gran # (Auto) (0.00-0.02) K/uL Sodium (136-145) mmol/L Potassium (3.5-5.1) mmol/L Chloride (98-107) mmol/L Carbon Dioxide (21-32) mmol/L Anion Gap (3-11) BUN (6-23) mg/dl Creatinine (0.6-1.4) mg/dl Est Cr Clr Drug Dosing ml/min Est GFR ( Amer) ml/min Est GFR (Non-Af Amer) ml/min BUN/Creatinine Ratio (10-20) Glucose (70-99(Fasting)) mg/dl Lactate 1.8 (0.4-2.0) mmol/L Calcium (8.5-10.1) mg/dl Magnesium (1.7-2.4) mg/dl Total Bilirubin (0.2-1.0) mg/dl Direct Bilirubin (0-0.2) mg/dl AST (13-39) U/L ALT (7-52) U/L Alkaline Phosphatase (34-104) U/L Troponin I High Sens (0-20) pg/ml Total Protein (6.0-8.3) gm/dl Albumin (3.4-5.0) gm/dl Procalcitonin 0.17 (0-0.5) ng/ml Urine Color Yellow Urine Appearance Cloudy A (Clear) Urine pH 7.0 (4.5-7.5) Ur Specific [place] 1.022 (1.000-1.030) Urine Protein Trace H (Negative) Urine Glucose (UA) Negative (Negative) Urine Ketones Trace H (Negative) Urine Blood Negative (Negative) Urine Nitrite Positive A (Negative) Urine Bilirubin Negative (Negative) Urine Urobilinogen Negative (Negative) Ur Leukocyte Esterase 3+ H (Negative) Urine WBC (Auto) >30 H (0-5) /hpf Urine RBC (Auto) 0-4 (0-4) /hpf U Hyaline Cast (Auto) 10-30 H (0-5) /lpf U Epithel Cells (Auto) 0-5 (0-5) /lpf Urine Bacteria (Auto) 4+ H (Negative) SARS-CoV-2 (PCR) (Negative) Influenza Type A (PCR) (Neg) Influenza Type B (PCR) (Neg) RSV (RT-PCR) (Neg) 07/06/22 07/06/22 07/06/22 Range/Units 10:50 10:50 Unknown WBC 18.82 H (4.8-10.8) K/ul RBC 3.57 L (4.63-6.08) M/uL Hgb 11.1 L (14.0-18.0) g/dl Hct 34.3 L (40.1-51.0) % MCV 96.1 (80.0-100.0) fL MCH 31.1 (25.0-34.0) pg MCHC 32.4 (32.0-36.0) g/dL RDW Std Deviation 65.6 H (36.4-46.3) fL RDW Coeff of [place] 18.9 H (11.5-14.5) % Plt Count 235 (130-400) K/uL MPV 10.6 (9.4-12.4) fL Immature Gran % (Auto) 0.5 % Neut % (Auto) 79.8 % Lymph % (Auto) 8.7 % [place] % (Auto) 10.8 % Eos % (Auto) 0.0 % Baso % (Auto) 0.2 % Neut # (Auto) 15.02 H (1.4-6.5) K/uL Lymph # (Auto) 1.64 (1.2-3.4) K/uL [place] # (Auto) 2.04 H (0.24-0.82) K/uL Eos # (Auto) 0.00 (0-0.50) K/uL Baso # (Auto) 0.03 (0-0.2) K/uL Immature Gran # (Auto) 0.09 H (0.00-0.02) K/uL Sodium 141 (136-145) mmol/L Potassium 4.0 (3.5-5.1) mmol/L Chloride 108 H (98-107) mmol/L Carbon Dioxide 23 (21-32) mmol/L Anion Gap 10 (3-11) BUN 13 (6-23) mg/dl Creatinine 0.72 (0.6-1.4) mg/dl Est Cr Clr Drug Dosing 84.9 ml/min Est GFR ( Amer) 117.5 ml/min Est GFR (Non-Af Amer) 101.4 ml/min BUN/Creatinine Ratio 18.1 (10-20) Glucose 93 (70-99(Fasting)) mg/dl Lactate (0.4-2.0) mmol/L Calcium 9.1 (8.5-10.1) mg/dl Magnesium 2.0 (1.7-2.4) mg/dl Total Bilirubin 0.8 (0.2-1.0) mg/dl Direct Bilirubin 0.2 (0-0.2) mg/dl AST 12 L (13-39) U/L ALT 8 (7-52) U/L Alkaline Phosphatase 67 (34-104) U/L Troponin I High Sens 6.6 (0-20) pg/ml Total Protein 7.3 (6.0-8.3) gm/dl Albumin 3.5 (3.4-5.0) gm/dl Procalcitonin (0-0.5) ng/ml Urine Color Urine Appearance (Clear) Urine pH (4.5-7.5) Ur Specific [place] (1.000-1.030) Urine Protein (Negative) Urine Glucose (UA) (Negative) Urine Ketones (Negative) Urine Blood (Negative) Urine Nitrite (Negative) Urine Bilirubin (Negative) Urine Urobilinogen (Negative) Ur Leukocyte Esterase (Negative) Urine WBC (Auto) (0-5) /hpf Urine RBC (Auto) (0-4) /hpf U Hyaline Cast (Auto) (0-5) /lpf U Epithel Cells (Auto) (0-5) /lpf Urine Bacteria (Auto) (Negative) SARS-CoV-2 (PCR) NEGATIVE (Negative) Influenza Type A (PCR) Negative (Neg) Influenza Type B (PCR) Negative (Neg) RSV (RT-PCR) Negative (Neg) Administered Medications Discontinued Medications Sodium Chloride (Nss 1000ml) 500 mls @ 999 mls/hr IV .Q31M [facility] Stop: 07/06/22 09:00 Last Infusion: 07/06/22 10:44 Dose: 0 mls/hr Documented By: Admin: 07/06/22 08:30 Dose: 999 mls/hr Documented By: [place] Piperacillin Sod/Tazobactam Sod (Zosyn) 4.5 gm in 120 mls @ 240 mls/hr IV NOW ONE Stop: 07/06/22 08:58 Last Infusion: 07/06/22 10:44 Dose: 0 mls/hr Documented By: PR Admin: 07/06/22 10:29 Dose: 240 mls/hr Documented By: NH Sodium Chloride (Nss) 500 mls @ 999 mls/hr IV .Q31M ONE Stop: 07/06/22 11:34 Last Admin: 07/06/22 11:20 Dose: 999 mls/hr Documented By: JANE Acetaminophen (Ofirmev) 1,000 mg in 100 mls @ 400 mls/hr IV NOW STA Stop: 07/06/22 11:18 Last Infusion: 07/06/22 11:37 Dose: 0 mls/hr Documented By: Admin: 07/06/22 11:21 Dose: 400 mls/hr Documented By: JANE Imaging Data Radiologist's Impression: Chest X-Ray 07/06/22 08:30 XR chest 1V portable CLINICAL HISTORY: Sepsis. COMPARISON STUDY: Chest CT June 27, 2022. Chest radiograph June 29, 2022. FINDINGS: Cardiomediastinal silhouette is stable. A hiatal hernia is again noted. There is a trace right pleural effusion. Right lower lung airspace op acity has improved since exam of June 29, 2022. There is persistent interstitial thickening. No pneumothorax. IMPRESSION: 1. Interval improvement in right lung airspace opacity. Persistent interstitial thickening. 2. Trace right pleural effusion. No pneumothorax. ACT 112: Negative or not required by law. Electronically signed by: Marshal Xie M.D. 07/06/2022 8:56 AM Discharge Plan Visit Data Chief Complaint: Fever Stated Complaint: FEVER, WEAKNESS, ED Provider: Mamadou Mojica Discharge Problem: Sepsis, Weakness, Acute dehydration Forms Stand Alone Forms: [facility] Prescriptions Prescriptions: No Action [facility]DME[facility] See Rx Instructions .ROUTE .MEDSUPPLY Qty: 1 0RF Rx Instructions: As directed- May cut Keppra tabs and Potassium tabs in HALF for easier admin. (DME) Briefs Medium Misc See Rx Instructions .ROUTE .MEDSUPPLY Qty: 100 5RF Rx Instructions: Medium Briefs polyethylene glycol 3350 17 gram/dose powder 17 g PO .COMPLEX Qty: 765 5RF Rx Instructions: 17 grams PO Every 3 days and as needed daily; if not bowel movement in 3 days diazepam [Diastat AcuDial] 5-7.5-10 mg kit 7.5 mg LA UD PRN (Reason: seizure activity) Qty: 1 0RF Rx Instructions: Give 1 dose rectally if seizure lasts longer than 5 minutes and call 911 miscellaneous medical supply [facility] [place]a miscellaneous ONCE Qty: 1 0RF Rx Instructions: REPLACEMENT ARM PAD FOR A WHEELCHAIR Lubriderm Daily Moisture Lotion 1 applic topical BID Qty: 710 5RF (DME) Hospital Bed [facility] [place] See Rx Instructions .Route Qty: 1 0RF Rx Instructions: As directed clotrimazole 1 % cream 1 applic topical BID 14 Days Qty: 45 2RF levetiracetam [Keppra] 100 mg/mL solution 1,500 mg PO BID 30 Days Qty: 900 8RF divalproex 125 mg capsule, delayed rel sprinkle 750 mg PO BID 30 Days Qty: 360 8RF docusate sodium [Stool Softener] 100 mg capsule 100 mg PO DAILY PRN (Reason: constipation) Qty: 90 3RF (DME) Manual Wheelchair Device See Rx Instructions .ROUTE .MEDSUPPLY Qty: 1 0RF Rx Instructions: As directed aspirin 81 mg tablet,delayed release (DR/EC) 81 mg PO QAM triamcinolone acetonide 0.1 % cream 1 applic TOPICAL BID PRN (Reason: rash) Qty: 30 1RF Rx Instructions: Do not apply in same spot for longer than two weeks. lorazepam 0.5 mg tablet 0.5 mg PO BID Qty: 60 5RF acetaminophen 325 mg Tablet 650 mg PO Q6H MDD 3 GRAMS/24 HOURS PRN (Reason: Fever Or Pain) Rx Instructions: NEEDED FOR HEADACHE/MINOR ACHES AND PAIN OR TEMPERATURE GREATER THAN 100 F Debrox 6.5 % Drops 2 drp OTB 3XWK clindamycin phosphate [Cleocin T] 1 % solution 1 applic topical QAM Rx Instructions: APPLY DIRECTED TO SCALP ketoconazole [Nizoral] 2 % Shampoo 1 applic TOPICAL 2XWK Rx Instructions: USE SHAMPOO TO SCALP EVERY TUESDAY AND TUESDAY Saline Nasal 0.65 % Aerosol,[place] 1 spray INTRANASAL TID PRN (Reason: Dry Nasal Passages) [place] Saline Gel [place],Non-Aerosol 1 spray INTRANASAL BID loperamide [Imodium A-D] 2 mg capsule 2 mg PO UD PRN (Reason: Diarrhea) Label Comments: TAKE 2 TABLETS AT ONSET OF LOOSE STOOL THEN TAKE 1 TABLET AFTER EACH LOOSE BOWEL MOVEMENT. TAKE NO MORE THAN 4 DOSES IN 2 DAYS. alum-mag hydroxide-simeth [Antacid-Simethicone] 400-400-40 mg/5 mL Suspension 30 ml PO Q4H PRN (Reason: UPSET STOMACH/VOMITING) sertraline 50 mg tablet 50 mg PO QAM loratadine [Claritin] 10 mg tablet 10 mg PO QAM Aquaphor Healing 41 % ointment 1 applic TOPICAL HS Triple Antibiotic 3.5mg-400 unit- 5,000 unit/gram Ointment 1 applic TOPICAL BID ondansetron 4 mg tablet,disintegrating 4 mg PO Q6H PRN (Reason: nausea and vomiting) Qty: 14 0RF sucralfate 100 mg/mL Suspension 1 g PO QID Qty: 400 0RF pantoprazole [Protonix] 40 mg tablet,delayed release (DR/EC) 40 mg PO BID Qty: 90 3RF Rx Instructions: Take 1 tablet by mouth twice daily for one month then return to once a day, one hour prior to the first meal of the day. furosemide 20 mg Tablet 20 mg PO QAM Qty: 30 0RF potassium chloride 10 mEq capsule, extended release 20 meq PO DAILY Qty: 90 3RF Rx Instructions: Capsule can be opened and sprinkled on soft food. Referrals Referrals: Sofia Xie MD [Primary Care Provider] - : Sepsis Qualifiers: Sepsis type: sepsis due to unspecified organism Sepsis acute organ dysfunction status: unspecified Qualified Code(s): A41.9 - Sepsis, unspecified organism
[2022-07-06] MEDS ORDERED: PIPERACILLIN/TAZOBACTAM 4.5 GM/120 ML BAG IV ONE (08:29)
[2022-07-06] MEDS ORDERED: SODIUM CHLORIDE 0.9% 1000ML 500 ML IV SCH (08:30)
[2022-07-06 08:52] LABS: Appearance Urine Cloudy (Clear); Bacteria Urine Automated 4+ (Negative); Bilirubin Urine Negative (Negative); Blood Urine Negative (Negative); Color Urine Yellow; Epithelial Cell Urine Auto 0-5 /lpf (0-5); Glucose Urine UA Negative (Negative); Ketones Urine Trace (Negative); Leukocyte Esterase Urine 3+ (Negative); Nitrite Urine Positive (Negative); Protein Urine Trace (Negative); RBC Urine Automated 0-4 /hpf (0-4); Specific Gravity Urine 1.022 (1.000-1.030); Urobilinogen Urine Negative (Negative); WBC Urine Automated >30 /hpf (0-5)
--- NOTE | 2022-07-06 08:59 | XRay Report ---
XR chest 1V portable CLINICAL HISTORY: Sepsis. COMPARISON STUDY: Chest CT June 27, 2022. Chest radiograph June 29, 2022. FINDINGS: Cardiomediastinal silhouette is stable. A hiatal hernia is again noted. There is a trace ri ght pleural effusion. Right lower lung airspace opacity has improved since exam of June 29, 2022. There is persistent interstitial thickening. No pneumothorax. IMPRESSION: 1. Interval improvement in right lung airspace opacity. Persistent interstitial thickening. 2. Trace right pleural effusion. No pneumothorax. ACT 112: Negative or not required by law. Electronically signed by: Marshal Xie M.D. 07/06/2022 8:56 AM
[2022-07-06 09:38] LABS: Influenza A virus by PCR Negative (Neg); Influenza B virus by PCR Negative (Neg); RSV by PCR Negative (Neg); SARS CoV2 RNA(COVID-19)Cepheid NEGATIVE (Negative)
[2022-07-06] MEDS ORDERED: SODIUM CHLORIDE 0.9% 500 ML IV ONE ×2 (11:04→13:35)
[2022-07-06] MEDS ORDERED: ACETAMINOPHEN 1,000 MG/100 ML VIAL IV STA (11:04)
[2022-07-06 11:08] LABS: Basophils # (auto) 0.03 K/uL (0-0.2); Basophils % (auto) 0.2 %; Hematocrit (blood only) 34.3 % (40.1-51.0); Hemoglobin 11.1 g/dl (14.0-18.0); Immature Granulocytes # (auto) 0.09 K/uL (0.00-0.02); Immature Granulocytes % (auto) 0.5 %; Lymphocytes # (auto) 1.64 K/uL (1.2-3.4); Lymphocytes % (auto) 8.7 %; Mean Corpuscular Hemoglobin 31.1 pg (25.0-34.0); Mean Corpuscular Hgb Conc 32.4 g/dL (32.0-36.0); Mean Corpuscular Volume 96.1 fL (80.0-100.0); Mean Platelet Volume 10.6 fL (9.4-12.4); Monocytes # (auto) 2.04 K/uL (0.24-0.82); Monocytes % (auto) 10.8 %; Neutrophils # (auto) 15.02 K/uL (1.4-6.5); Neutrophils % (auto) 79.8 %; Platelet Count 235 K/uL (130-400); RDW Coefficient of Variation 18.9 % (11.5-14.5); RDW Standard Deviation 65.6 fL (36.4-46.3); Red Blood Count 3.57 M/uL (4.63-6.08); White Blood Count 18.82 K/ul (4.8-10.8)
--- NOTE | 2022-07-06 11:23 | Electrocardiogram Report ---
Test Reason : Blood Pressure : / mmHG Vent. Rate : 102 BPM Atrial Rate : 102 BPM P-R Int : 130 ms QRS Dur : 074 ms QT Int : 320 ms P-R-T Axes : 049 037 049 degrees QTc Int : 417 ms Poor data quality, interpretation may be adversely affected Sinus tachycardia Otherwise normal ECG When compared with ECG of 21-JUN-2022 11:50, Criteria for Anterior infarct are no longer Present Criteria for Anterolateral infarct are no longer Present Confirmed by Joe Carlson ([id number]) on 07/06/2022 11:23:16 AM Referred By: Confirmed By:Anthony Carlson
--- NOTE | 2022-07-06 11:39 | History & Physical Report ---
Date of Service July 06, 2022 Assessment & Plan (1) Sepsis: Plan: Donny is a 62-year-old male with a past medical history of seizures, recurrent aspiration pneumonia, torturous esophagus, GERD, cerebral palsy, PAT, PAD recently admitted 06/21-06/30 for aspiration pneumonia failing Augmentin treatment who presents to the emergency department for fever and weakness. He is febrile, mildly tachycardic, and tachypneic in the ER. He is empirically placed on Zosyn, MRSA nare - 06/22/2022 with repeat pending. Leukocytosis is present to 18 from prior discharge WBC of 7. UA shows 4+ bacteria with leukocyte esterase and nitrates. COVID and flu are negative.Chest x-ray in ER shows right lung airspace opacity with interval improvement, persistent interstitial thickening, trace right pleural effusion.. Sepsis, fever, weakness suspect 2/2 UTI Leukocytosis, febrile, tachycardic, tachypneic on admission. Meets sepsis criteria Lactate normal Patient recently treated for pneumonia 06/21- as inpatient after failing Augmentin outpatient therapy. Did clinically improve with resolution of leukocytosis and completed a course of Zosyn/Doxy in addition to Lasix. CXR shows improved airspace opacity procalcitonin is negative. Suspect patient's re current fever is more likely due to UTI with infected appearing UA UA with 4+ bacteria, leukocytes esterase, nitrates Blood cultures, urine culture pending Continue Zosyn CBC, BMP daily Received 1000 cc bolus in ER Continue supplemental maintenance x1 L Tylenol 1 g every 8 hours as needed Torturous esophagus Longstanding, chronic issue Continue PPI Speech recommendations: Minced and moist IDD SI 5 thin liquids IDD SI 0. Slippery. Aspiration precautions, no straws. Must be at least 30 degrees with all meals and 30 minutes after. Strict mouth care. Cerebral palsy Baseline function, smiles laughs intermittently yells out, uses motorized wheelchair normally Paroxysmal atrial tachycardia Propranolol previously held for hypotension Heart rate well controlled without arrhythmia previous admission May resume propranolol at dose reduction if recurs, treat fever/infection and reactive tachycardia at this time History of epilepsy Continue Depakote. Patient did not receive morning of admission, one-time dose given at noon and continued for evening Continue Keppra. Patient did not receive morning of admission, one-time dose given at noon and continued for evening Continue Ativan Topamax previously discontinued, verified with medrec PAD Continue aspirin daily Anemia With history of iron deficiency, received 3 doses of 200 mg Venofer 06/26-06/28 Hemoglobin DVT prophylaxis: Heparin twice daily, patient bedbound Diet: Minced and moist. Aspiration precautions, head of bed to 30 degrees with all meals and for 30 minutes after DVT prophylaxis: Heparin twice daily CODE STATUS DNR/DNI, confirmed with patient advocate and paperwork at bedside (2) UTI (urinary tract infection): (3) Severe intellectual disabilities: (4) Spina bifida: (5) Hyperlipidemia: (6) GERD (gastroesophageal reflux disease): (7) Esophageal abnormality: (8) Cerebral palsy: (9) Anemia: (10) Acute dehydration: (11) Epilepsy: History of Present Illness Primary Care Provider: Sofia Xie MD Donny is a 62-year-old male with a past medical history of seizures, recurrent aspiration pneumonia, torturous esophagus, GERD, cerebral palsy, PAT, PAD recently admitted 06/21-06/30 for aspiration pneumonia failing Augmentin treatment who presents to the emergency department for fever and weakness. He is febrile, mildly tachycardic, and tachypneic in the ER. He is empirically placed on Zosyn, MRSA nare - 06/22/2022 with repeat pending. Leukocytosis is present to 18 from prior discharge WBC of 7. UA shows 4+ bacteria with leukocyte esterase and nitrates. COVID and flu are negative.Chest x-ray in ER shows right lung airspace opacity with interval improvement, persistent interstitial thickening, trace right pleural effusion.. Donny is seen with Libby at bedside. She reports that he was in his otherwise usual state of health and was doing well recovering well from pneumonia and much more active for the last few days, but awoke this morning with increased fatigue, lethargy, and a fever of 103. No cough, but reports he had actually been doing well and had been using his wheelchair again has been much more engaged after his treatment for pneumonia until this morning. History and physical is limited by nonverbal status. Medical History: Reviewed Medications: Reviewed Surgical History: Reviewed Allergies: Reviewed Social History: No tobacco/alcohol use Code Status: DNR/DNI. Discussed with patient and advocate at bedside Allergies Allergy/AdvReac Type Severity Reaction Status Date / Time metoclopramide Allergy Intermediate Agitation Verified 06/16/22 11:05 grapefruit Allergy Mild nasal Verified 06/16/22 11:05 congestion chocolate flavor Allergy Unknown Unknown Verified 06/16/22 11:05 Home Medications Medication Instructions Recorded Confirmed Type acetaminophen 325 mg tablet 650 mg PO Q6H PRN Fever Or Pain 10/19/18 07/06/22 History carbamide peroxide 6.5 % ear drops 2 drp OTB 3XWK 10/19/18 07/06/22 History (Debrox) clindamycin phosphate 1 % topical 1 applic topical QAM 10/19/18 07/06/22 History solution (Cleocin T) ketoconazole 2 % shampoo (Nizoral) 1 applic topical 2XWK 02/08/19 07/06/22 History sodium chloride 0.65 % nasal spray 1 spray intranasal TID PRN Dry 02/08/19 07/06/22 History aerosol (Saline Nasal) Nasal Passages sodium chloride-aloe vera nasal 1 spray intranasal BID 02/08/19 07/06/22 History spray ([place] Saline Gel nasal spray) loperamide 2 mg capsule (Imodium 2 mg PO UD PRN Diarrhea 06/03/19 07/06/22 History A-D) Jobst Stockings (misc) #1 ea 09/18/19 06/16/22 Rx Wheelchair (Manual) (Manual #1 ea 11/07/19 06/16/22 Rx Wheelchair) diaper,brief,adult,disposable #100 ea 03/19/20 06/16/22 Rx (Briefs Medium) aluminum-mag hydroxide-simethicone 30 ml PO Q4H PRN UPSET 03/25/20 07/06/22 History 400 mg-400 mg-40 mg/5 mL oral susp STOMACH/VOMITING (Antacid-Simethicone) polyethylene glycol 3350 17 17 g PO .COMPLEX #765 grams 09/03/21 07/06/22 Rx gram/dose oral powder diazepam 5 mg-7.5 mg-10 mg rectal 7.5 mg [place] UD PRN seizure activity 10/05/21 07/06/22 Rx kit (Diastat AcuDial) #1 ea aspirin 81 mg tablet,delayed 81 mg PO QAM 11/03/21 07/06/22 History release triamcinolone acetonide 0.1 % 1 applic topical BID PRN rash #30 11/03/21 07/06/22 Rx topical cream grams miscellaneous medical supply 1 ea miscellaneous ONCE #1 ea 11/27/21 06/21/22 Rx emollient combination no.92 1 applic topical BID Dry skin #710 12/15/21 07/06/22 Rx (Lubriderm Daily Moisture lotion) mL loratadine 10 mg tablet (Claritin) 10 mg PO QAM allergies 04/12/22 07/06/22 History neomycin-bacitracn Zn-polymyx 3.5 1 applic topical BID 04/12/22 07/06/22 History mg-400 unit-5,000 unit/gram top oint (Triple Antibiotic) sertraline 50 mg tablet 50 mg PO QAM 04/12/22 07/06/22 History white petrolatum 41 % topical 1 applic topical HS 04/12/22 07/06/22 History ointment (Aquaphor Healing) lorazepam 0.5 mg tablet 0.5 mg PO BID #60 tabs 04/29/22 07/06/22 Rx Hospital Bed Homecare (Hospital #1 ea 05/11/22 06/16/22 Rx Bed) clotrimazole 1 % topical cream 1 applic topical BID 2 weeks #45 05/19/22 07/06/22 Rx grams pantoprazole 40 mg tablet,delayed 40 mg PO BID #90 tabs 05/27/22 07/06/22 Rx release (Protonix) sucralfate 100 mg/mL oral 1 g (10 mL) PO QID #400 mL 05/27/22 07/06/22 Rx suspension divalproex 125 mg capsule,delayed 750 mg PO BID 30 days #360 caps 06/02/22 07/06/22 Rx release sprinkle levetiracetam 100 mg/mL oral 1,500 mg (15 mL) PO BID 30 days 06/02/22 07/06/22 Rx solution (Keppra) #900 mL ondansetron 4 mg disintegrating 4 mg PO Q6H PRN nausea and 06/13/22 07/06/22 Rx tablet vomiting #14 tabs furosemide 20 mg tablet 20 mg PO QAM #30 tabs 06/29/22 07/06/22 Rx potassium chloride 10 mEq 20 meq PO DAILY #90 caps 06/29/22 Rx capsule,extended release docusate sodium 100 mg capsule 100 mg PO DAILY PRN constipation 07/02/22 07/06/22 Rx (Stool Softener) #90 caps Past Med/Surg History Medical History Allergic rhinitis Alternating exotropia Anemia Anemia Aphasia Bipolar disorder Bladder carcinoma s/p TURBT 10/2021 Cataracts, both eyes Cerebral palsy Chronic constipation Chronic periodontitis Dermatitis Epilepsy Fever GERD (gastroesophageal reflux disease) History of prematurity Hyperlipidemia Microcephaly Mood disorder PAD (peripheral artery disease) Paraplegia Paroxysmal atrial tachycardia Ptosis, left eyelid Scoliosis Severe intellectual disabilities Spina bifida Surgical History H/O transurethral destruction of bladder lesion 12/2021 History of removal of neck cyst Family History Other Family history non-contributory Social History Smoking Status: Never smoker Hx Alcohol Use: No Hx Substance Use: No Preferred Language: Micronesian Communication Ability: Unable Visual 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 Chronically ill appearing. Awake and gazing around the room, cries out intermittently. HEENT: Atraumatic, normocephalic. Mucous membranes tacky. Vision assessment limited by cognitive status, but tracks around the room in response to auditory stimuli. Pulm: CTAB A&P. -wheezes, -rales, -rhonchi. Symmetrical chest rise. No increase in work of breathing. No respiratory distress. Cardiac: Regular, tachycardic, -mrg. Radial pulses intact and symmetrical. Abdominal: Nontender, nondistended, soft. BS present. Extremities: Cap refill intact in hallux less than 2 seconds bilaterally. Flexed position, chronic muscle atrophy with history of cerebral palsy. Moving upper extremities equally. Results & Data Results & Data ([facility]) Vital Signs (Past 12 Hours) Vital Signs Temp Pulse Resp BP Pulse Ox O2 Del Method 07/06/22 10:56 93 H 27 H 110/58 L 96 Room Air 07/06/22 10:45 97 H 27 H 90/78 L 95 Room Air 07/06/22 10:30 94 H 20 102/52 L 94 Room Air 07/06/22 10:15 93 H 26 H 96/53 L 96 Room Air 07/06/22 10:10 98 H 15 91/49 L 96 Room Air 07/06/22 10:00 93 H 27 H 91/58 L 96 Room Air 07/06/22 09:45 98 H 20 106/56 L 96 Room Air 07/06/22 09:30 96 H 25 H 98/56 L 96 Room Air 07/06/22 09:15 96 H 27 H 97/56 L 96 Room Air 07/06/22 09:00 97 H 18 101/47 L 97 Room Air 07/06/22 08:46 100 H 24 112/55 L 95 Room Air 07/06/22 08:30 99 H 26 H 107/55 L 96 Room Air 07/06/22 08:30 96 Room Air 07/06/22 07:48 37.9 C H 105 H 22 102/56 L 98 PG Care Time/CCT Total # of Minutes Spent Total Time Spent with Patient: Total time spent is greater than 50% in coordination of care (as documented) at patient's floor/unit and/or counseling patient: Coding Level of Care Code 12698 Initial Inpt Care Lvl 3 Diagnoses Sepsis A41.9 UTI (urinary tract infection) N39.0 Severe intellectual disabilities F72 Spina bifida Q05.9 Hyperlipidemia E78.5 GERD (gastroesophageal reflux disease) K21.9 Esophageal abnormality K22.9 Cerebral palsy G80.9 Anemia D64.9 Acute dehydration E86.0 Epilepsy G40.909
[2022-07-06 11:42] LABS: Troponin I High Sensitivity 6.6 pg/ml (0-20)
[2022-07-06 11:44] LABS: Albumin Level 3.5 gm/dl (3.4-5.0); BUN Creatinine Ratio 18.1 (10-20); Bilirubin Direct 0.2 mg/dl (0-0.2); Bilirubin,Total 0.8 mg/dl (0.2-1.0); Calcium 9.1 mg/dl (8.5-10.1); Creatinine Clr Calc Pharmacy 84.9 ml/min; Est GFR (African American) 117.5 ml/min; Est GFR (Non-African American) 101.4 ml/min; Total Protein 7.3 gm/dl (6.0-8.3)
[2022-07-06] MEDS ORDERED: KETOROLAC TROMETHAMINE 15 MG/ML VIAL IV ONE (11:56)
[2022-07-06] MEDS ORDERED: SODIUM CHLORIDE 0.9% 1000ML 500 ML IV ONE (12:11)
[2022-07-06] MEDS ORDERED: LORazepam 1 MG/1 ML SYR IV PRN (12:24)
[2022-07-06] MEDS ORDERED: levETIRAcetam 1,500 MG in 0.9 % SODIUM CHLORIDE 100 ML IV STA (12:39)
[2022-07-06] MEDS ORDERED: DIVALPROEX EXTENDED RELEASE 250 MG TABCR PO ONE (12:45)
[2022-07-06] MEDS ORDERED: NSS + 20MEQ KCL 20 MEQ/1,000 ML BAG IV SCH (14:00)
[2022-07-06] MEDS: PIPERACILLIN/TAZOBACTAM 3.375 GM in DEXTROSE 5% 100 ML IV SCH ×2 (16:01→22:36)
[2022-07-06] MEDS ORDERED: LORazepam 4 MG in SYRINGE 0 ML IV PRN (19:34)
[2022-07-06] MEDS: DIVALPROEX SODIUM SPRINKLE/DEL-REL 125 MG CAP PO SCH (21:01)
[2022-07-06] MEDS: LORazepam 0.5 MG TAB PO SCH (21:01)
[2022-07-06] MEDS: PANTOprazole 40 MG TAB PO SCH (21:01)
[2022-07-06] MEDS: HEPARIN SOD 5,000 UNIT/0.5 ML VIAL SQ SCH (21:03)
[2022-07-06] MEDS: levETIRAcetam ORAL SOLN 100MG/ML PO SCH (21:03)
[2022-07-07] MEDS: ACETAMINOPHEN 325 MG TAB PO PRN (03:10)
[2022-07-07 07:10] LABS: Basophils # (auto) 0.04 K/uL (0-0.2); Basophils % (auto) 0.4 %; Eosinophils # (auto) 0.14 K/uL (0-0.50); Eosinophils % (auto) 1.5 %; Hematocrit (blood only) 28.2 % (40.1-51.0); Immature Granulocytes # (auto) 0.04 K/uL (0.00-0.02); Immature Granulocytes % (auto) 0.4 %; Lymphocytes # (auto) 0.97 K/uL (1.2-3.4); Lymphocytes % (auto) 10.1 %; Mean Corpuscular Hemoglobin 30.8 pg (25.0-34.0); Mean Corpuscular Hgb Conc 31.9 g/dL (32.0-36.0); Mean Corpuscular Volume 96.6 fL (80.0-100.0); Mean Platelet Volume 10.7 fL (9.4-12.4); Monocytes % (auto) 8.3 %; Neutrophils # (auto) 7.63 K/uL (1.4-6.5); Neutrophils % (auto) 79.3 %; Platelet Count 172 K/uL (130-400); RDW Coefficient of Variation 18.2 % (11.5-14.5); RDW Standard Deviation 63.9 fL (36.4-46.3); Red Blood Count 2.92 M/uL (4.63-6.08); White Blood Count 9.62 K/ul (4.8-10.8)
[2022-07-07] MEDS: PIPERACILLIN/TAZOBACTAM 3.375 GM in DEXTROSE 5% 100 ML IV SCH (07:19)
[2022-07-07 07:32] LABS: Creatinine Clr Calc Pharmacy 106.7 ml/min; Est GFR (African American) 126.7 ml/min; Est GFR (Non-African American) 109.3 ml/min
[2022-07-07] MEDS: SERTRALINE HCL 50 MG TABLET PO SCH (09:08)
[2022-07-07] MEDS: ASPIRIN 81 MG ECTAB PO SCH (09:08)
[2022-07-07] MEDS: PANTOprazole 40 MG TAB PO SCH ×2 (09:09→21:44)
[2022-07-07] MEDS: DIVALPROEX SODIUM SPRINKLE/DEL-REL 125 MG CAP PO SCH ×2 (09:09→21:43)
[2022-07-07] MEDS: levETIRAcetam ORAL SOLN 100MG/ML PO SCH ×2 (09:09→21:43)
[2022-07-07] MEDS: LORATADINE 10 MG TAB PO SCH (09:09)
[2022-07-07] MEDS: HEPARIN SOD 5,000 UNIT/0.5 ML VIAL SQ SCH ×2 (09:09→21:44)
[2022-07-07] MEDS: LORazepam 0.5 MG TAB PO SCH ×2 (09:16→21:53)
[2022-07-07] MEDS: cefTRIAXone SODIUM 1,000 MG in DEXTROSE 5% 50 ML IV SCH (13:25)
--- NOTE | 2022-07-07 19:03 | Hospitalist Progress Note ---
Date of Service July 07, 2022 Assessment & Plan (1) Sepsis: Plan: pt with a past medical history of seizures, recurrent aspiration pneumonia, torturous esophagus, GERD, cerebral palsy, PAT, PAD recently admitted 06/21- 06/30 for aspiration pneumonia failing Augmentin treatment who presents to the emergency department for fever and weakness. He is febrile, mildly tachycardic, and tachypneic in the ER. He is empirically placed on Zosyn, MRSA nare - 06/22/2022 with repeat pending. Leukocytosis is present to 18 from prior discharge WBC of 7. UA shows 4+ bacteria with leukocyte esterase and nitrates. COVID and flu are negative.Chest x-ray in ER shows right lung airspace opacity with interval improvement, persistent interstitial thickening, trace right pleural effusion.. Sepsis, fever, weakness suspect 2/2 UTI Leukocytosis, febrile, tachycardic, tachypneic on admission. Meets sepsis criteria Lactate normal Patient recently treated for pneumonia 06/21- as inpatient after failing Augmentin outpatient therapy. Did clinically improve with resolution of leukocytosis and completed a course of Zosyn/Doxy in addition to Lasix. CXR shows improved airspace opacity procalcitonin is negative. Suspect patient's recurrent fever is more likely due to UTI with infected appearing UA UA with 4+ bacteria, leukocytes esterase, nitrates Blood cultures, urine culture pending Continue Zosyn CBC, BMP daily Received 1000 cc bolus in ER Continue supplemental maintenance x1 L Tylenol 1 g every 8 hours as needed Torturous esophagus Longstanding, chronic issue Continue PPI Speech recommendations: Minced and moist IDD SI 5 thin liquids IDD SI 0. Slippery. Aspiration precautions, no straws. Must be at least 30 degrees with all meals and 30 minutes after. Strict mouth care. Cerebral palsy Baseline function, smiles laughs intermittently yells out, uses motorized wheelchair normally Paroxysmal atrial tachycardia Propranolol previously held for hypotension Heart rate well controlled without arrhythmia previous admission May resume propranolol at dose reduction if recurs, treat fever/infection and reactive tachycardia at this time History of epilepsy Continue Depakote. Patient did not receive morning of admission, one-time dose given at noon and continued for evening Continue Keppra. Patient did not receive morning of admission, one-time dose given at noon and continued for evening Continue Ativan Topamax previously discontinued, verified with medrec PAD Continue aspirin daily Anemia With history of iron deficiency, received 3 doses of 200 mg Venofer 06/26- Hemoglobin (2) UTI (urinary tract infection): (3) Spina bifida: (4) Hyperlipidemia: (5) GERD (gastroesophageal reflux disease): (6) Esophageal abnormality: (7) Cerebral palsy: (8) Anemia: (9) Acute dehydration: (10) Epilepsy: Admission and Anticipated Discharge Date Admission Date: July 06, 2022 Subjective No acute change noted Physical Exam Physical Exam: No acute change noted cardiovascular S1-S2 normally Lungs bilateral air entry fair GI abdomen soft Extremity trace edema Results & Data Results & Data ([facility]) Vital Signs (Past 12 Hours) Vital Signs Temp Pulse Pulse Resp BP Pulse Ox O2 Del Method 07/07/22 15:18 36.9 C 76 20 100/59 L 99 Room Air 07/07/22 14:18 78 07/07/22 11:42 36.9 C 80 16 112/60 95 Room Air 07/07/22 07:38 37.1 C 72 18 103/60 96 Room Air PG Care Time/CCT Total # of Minutes Spent Total Time Spent with Patient: Total time spent is greater than 50% in coordination of care (as documented) at patient's floor/unit and/or counseling patient: Coding Level of Care Code 51185 Subseq Hosp Care Lvl 2 Diagnoses Sepsis A41.9 UTI (urinary tract infection) N39.0 Spina bifida Q05.9 Hyperlipidemia E78.5 GERD (gastroesophageal reflux disease) K21.9 Esophageal abnormality K22.9 Cerebral palsy G80.9 Anemia D64.9 Acute dehydration E86.0 Epilepsy G40.909
[2022-07-08] MEDS ORDERED: DEXTROMETHORPHAN POLYMR COMPLX 30 MG/5 ML UDP PO ONE (04:14)
[2022-07-08] MEDS: ASPIRIN 81 MG ECTAB PO SCH (08:17)
[2022-07-08] MEDS: SERTRALINE HCL 50 MG TABLET PO SCH (08:17)
[2022-07-08] MEDS: PANTOprazole 40 MG TAB PO SCH ×2 (08:17→20:00)
[2022-07-08] MEDS: HEPARIN SOD 5,000 UNIT/0.5 ML VIAL SQ SCH ×2 (08:17→19:59)
[2022-07-08] MEDS: LORATADINE 10 MG TAB PO SCH (08:17)
[2022-07-08] MEDS: levETIRAcetam ORAL SOLN 100MG/ML PO SCH ×2 (08:18→20:00)
[2022-07-08] MEDS: DIVALPROEX SODIUM SPRINKLE/DEL-REL 125 MG CAP PO SCH ×2 (08:18→20:00)
[2022-07-08] MEDS: ACETAMINOPHEN 325 MG TAB PO PRN ×3 (08:22→19:53)
[2022-07-08] MEDS: LORazepam 0.5 MG TAB PO SCH ×2 (08:36→20:00)
[2022-07-08] MEDS: cefTRIAXone SODIUM 1,000 MG in DEXTROSE 5% 50 ML IV SCH (13:40)
--- NOTE | 2022-07-08 20:17 | Hospitalist Progress Note ---
Date of Service July 08, 2022 Assessment & Plan (1) Sepsis: Plan: pt with a past medical history of seizures, recurrent aspiration pneumonia, torturous esophagus, GERD, cerebral palsy, PAT, PAD recently admitted 06/21- 06/30 for aspiration pneumonia failing Augmentin treatment who presents to the emergency department for fever and weakness. He is febrile, mildly tachycardic, and tachypneic in the ER. He is empirically placed on Zosyn, MRSA nare - 06/22/2022 with repeat pending. Leukocytosis is present to 18 from prior discharge WBC of 7. UA shows 4+ bacteria with leukocyte esterase and nitrates. COVID and flu are negative.Chest x-ray in ER shows right lung airspace opacity with interval improvement, persistent interstitial thickening, trace right pleural effusion.. Sepsis, fever, weakness suspect 2/2 UTI Leukocytosis, febrile, tachycardic, tachypneic on admission. Meets sepsis criteria Lactate normal Patient recently treated for pneumonia 06/21- as inpatient after failing Augmentin outpatient therapy. Did clinically improve with resolution of leukocytosis and completed a course of Zosyn/Doxy in addition to Lasix. CXR shows improved airspace opacity procalcitonin is negative. Suspect patient's recurrent fever is more likely due to UTI with infected appearing UA UA with 4+ bacteria, leukocytes esterase, nitrates Blood cultures, urine culture pending Continue Zosyn CBC, BMP daily Received 1000 cc bolus in ER Continue supplemental maintenance x1 L Tylenol 1 g every 8 hours as needed Torturous esophagus Longstanding, chronic issue Continue PPI Speech recommendations: Minced and moist IDD SI 5 thin liquids IDD SI 0. Slippery. Aspiration precautions, no straws. Must be at least 30 degrees with all meals and 30 minutes after. Strict mouth care. Cerebral palsy Baseline function, smiles laughs intermittently yells out, uses motorized wheelchair normally Paroxysmal atrial tachycardia Propranolol previously held for hypotension Heart rate well controlled without arrhythmia previous admission May resume propranolol at dose reduction if recurs, treat fever/infection and reactive tachycardia at this time History of epilepsy Continue Depakote. Patient did not receive morning of admission, one-time dose given at noon and continued for evening Continue Keppra. Patient did not receive morning of admission, one-time dose given at noon and continued for evening Continue Ativan Topamax previously discontinued, verified with medrec PAD Continue aspirin daily Anemia With history of iron deficiency, received 3 doses of 200 mg Venofer 06/26- Hemoglobin (2) UTI (urinary tract infection): (3) Spina bifida: (4) Hyperlipidemia: (5) GERD (gastroesophageal reflux disease): (6) Esophageal abnormality: (7) Cerebral palsy: (8) Anemia: (9) Acute dehydration: (10) Epilepsy: Admission and Anticipated Discharge Date Admission Date: July 06, 2022 Subjective No acute change noted P.o. intake slightly improved Physical Exam Physical Exam: Head and ENT no thyroid enlargement trachea midline Cardiovascular S1-S2 are normal no S3 Lungs bilateral air entry fair no wheezing Abdomen soft nondistended positive bowel sounds no rebound tenderness Extremity shows trace edema Neurologically no nystagmus Results & Data Results & Data ([facility]) Vital Signs (Past 12 Hours) Vital Signs Temp Pulse Pulse Resp BP Pulse Ox O2 Del Method 07/08/22 19:20 38.4 C H 103 H 18 118/56 L 91 Room Air 07/08/22 17:00 37.8 C H 07/08/22 15:00 109 H 07/08/22 14:34 39.0 C H 102 H 20 92/52 L 94 Room Air 07/08/22 12:18 38.2 C H 103 H 20 98/57 L 94 Room Air 07/08/22 10:23 38.8 C H PG Care Time/CCT Total # of Minutes Spent Total Time Spent with Patient: Total time spent is greater than 50% in coordination of care (as documented) at patient's floor/unit and/or counseling patient: Coding Level of Care Code 65865 Subseq Hosp Care Lvl 2 Diagnoses Sepsis A41.9 UTI (urinary tract infection) N39.0 Spina bifida Q05.9 Hyperlipidemia E78.5 GERD (gastroesophageal reflux disease) K21.9 Esophageal abnormality K22.9 Cerebral palsy G80.9 Anemia D64.9 Acute dehydration E86.0 Epilepsy G40.909
[2022-07-08] MEDS ORDERED: ACETAMINOPHEN 325 MG TAB PO ONE (22:48)
[2022-07-09 06:32] LABS: Hematocrit (blood only) 32.7 % (40.1-51.0); Hemoglobin 10.7 g/dl (14.0-18.0); Mean Corpuscular Hemoglobin 31.1 pg (25.0-34.0); Mean Corpuscular Hgb Conc 32.7 g/dL (32.0-36.0); Mean Corpuscular Volume 95.1 fL (80.0-100.0); Mean Platelet Volume 10.7 fL (9.4-12.4); Platelet Count 172 K/uL (130-400); RDW Coefficient of Variation 17.7 % (11.5-14.5); RDW Standard Deviation 61.6 fL (36.4-46.3); Red Blood Count 3.44 M/uL (4.63-6.08); White Blood Count 4.36 K/ul (4.8-10.8)
[2022-07-09 06:53] LABS: BUN Creatinine Ratio 14.9 (10-20); Calcium 8.8 mg/dl (8.5-10.1); Creatinine Clr Calc Pharmacy 88.1 ml/min; Est GFR (Non-African American) 104.4 ml/min; Potassium 4.1 mmol/L (3.5-5.1)
[2022-07-09] MEDS: ASPIRIN 81 MG ECTAB PO SCH (07:19)
[2022-07-09] MEDS: LORATADINE 10 MG TAB PO SCH (07:19)
[2022-07-09] MEDS: PANTOprazole 40 MG TAB PO SCH ×2 (07:19→19:34)
[2022-07-09] MEDS: SERTRALINE HCL 50 MG TABLET PO SCH (07:19)
[2022-07-09] MEDS: DIVALPROEX SODIUM SPRINKLE/DEL-REL 125 MG CAP PO SCH ×2 (07:20→19:34)
[2022-07-09] MEDS: levETIRAcetam ORAL SOLN 100MG/ML PO SCH ×2 (07:20→19:35)
[2022-07-09] MEDS: HEPARIN SOD 5,000 UNIT/0.5 ML VIAL SQ SCH ×2 (07:20→19:35)
[2022-07-09] MEDS: LORazepam 0.5 MG TAB PO SCH ×2 (07:45→19:34)
[2022-07-09] MEDS: cefTRIAXone SODIUM 1,000 MG in DEXTROSE 5% 50 ML IV SCH (11:20)
--- NOTE | 2022-07-09 19:58 | Hospitalist Progress Note ---
Date of Service July 09, 2022 Assessment & Plan (1) Sepsis: Plan: pt with a past medical history of seizures, recurrent aspiration pneumonia, torturous esophagus, GERD, cerebral palsy, PAT, PAD recently admitted 06/21- 06/30 for aspiration pneumonia failing Augmentin treatment who presents to the emergency department for fever and weakness. He is febrile, mildly tachycardic, and tachypneic in the ER. He is empirically placed on Zosyn, MRSA nare - 06/22/2022 with repeat pending. Leukocytosis is present to 18 from prior discharge WBC of 7. UA shows 4+ bacteria with leukocyte esterase and nitrates. COVID and flu are negative.Chest x-ray in ER shows right lung airspace opacity with interval improvement, persistent interstitial thickening, trace right pleural effusion.. Sepsis, fever, weakness suspect 2/2 UTI Leukocytosis, febrile, tachycardic, tachypneic on admission. Meets sepsis criteria Lactate normal Patient recently treated for pneumonia 06/21- as inpatient after failing Augmentin outpatient therapy. Did clinically improve with resolution of leukocytosis and completed a course of Zosyn/Doxy in addition to Lasix. CXR shows improved airspace opacity procalcitonin is negative. Suspect patient's recurrent fever is more likely due to UTI with infected appearing UA UA with 4+ bacteria, leukocytes esterase, nitrates Blood cultures, urine culture pending Continue Zosyn CBC, BMP daily Received 1000 cc bolus in ER Continue supplemental maintenance x1 L Tylenol 1 g every 8 hours as needed Torturous esophagus Longstanding, chronic issue Continue PPI Speech recommendations: Minced and moist IDD SI 5 thin liquids IDD SI 0. Slippery. Aspiration precautions, no straws. Must be at least 30 degrees with all meals and 30 minutes after. Strict mouth care. Cerebral palsy Baseline function, smiles laughs intermittently yells out, uses motorized wheelchair normally Paroxysmal atrial tachycardia Propranolol previously held for hypotension Heart rate well controlled without arrhythmia previous admission May resume propranolol at dose reduction if recurs, treat fever/infection and reactive tachycardia at this time History of epilepsy Continue Depakote. Patient did not receive morning of admission, one-time dose given at noon and continued for evening Continue Keppra. Patient did not receive morning of admission, one-time dose given at noon and continued for evening Continue Ativan Topamax previously discontinued, verified with medrec PAD Continue aspirin daily Anemia With history of iron deficiency, received 3 doses of 200 mg Venofer 06/26- Hemoglobin (2) UTI (urinary tract infection): (3) Spina bifida: (4) Hyperlipidemia: (5) GERD (gastroesophageal reflux disease): (6) Esophageal abnormality: (7) Cerebral palsy: (8) Anemia: (9) Acute dehydration: (10) Epilepsy: Admission and Anticipated Discharge Date Admission Date: July 06, 2022 Subjective No acute change noted P.o. intake slightly improved Physical Exam Physical Exam: Head and ENT no thyroid enlargement trachea midline Cardiovascular S1-S2 are normal no S3 Lungs bilateral air entry fair no wheezing Abdomen soft nondistended positive bowel sounds no rebound tenderness Extremity shows trace edema Neurologically no nystagmus Results & Data Results & Data ([facility]) Vital Signs (Past 12 Hours) Vital Signs Temp Pulse Pulse Resp BP Pulse Ox O2 Del Method 07/09/22 19:41 37 C 83 16 104/70 91 Room Air 07/09/22 15:20 75 07/09/22 15:06 37.2 C 84 18 103/58 L 93 Room Air 07/09/22 10:43 36.3 C L 89 18 115/56 L 99 Room Air PG Care Time/CCT Total # of Minutes Spent Total Time Spent with Patient: Total time spent is greater than 50% in coordination of care (as documented) at patient's floor/unit and/or counseling patient: Coding Level of Care Code 00374 Subseq Hosp Care Lvl 2 Diagnoses Sepsis A41.9 UTI (urinary tract infection) N39.0 Spina bifida Q05.9 Hyperlipidemia E78.5 GERD (gastroesophageal reflux disease) K21.9 Esophageal abnormality K22.9 Cerebral palsy G80.9 Anemia D64.9 Acute dehydration E86.0 Epilepsy G40.909
[2022-07-10 07:44] LABS: Hematocrit (blood only) 32.8 % (40.1-51.0); Hemoglobin 10.4 g/dl (14.0-18.0); Mean Corpuscular Hemoglobin 30.4 pg (25.0-34.0); Mean Corpuscular Hgb Conc 31.7 g/dL (32.0-36.0); Mean Corpuscular Volume 95.9 fL (80.0-100.0); Mean Platelet Volume 10.5 fL (9.4-12.4); Platelet Count 176 K/uL (130-400); RDW Coefficient of Variation 17.9 % (11.5-14.5); RDW Standard Deviation 62.6 fL (36.4-46.3); Red Blood Count 3.42 M/uL (4.63-6.08); White Blood Count 4.97 K/ul (4.8-10.8)
[2022-07-10] MEDS: HEPARIN SOD 5,000 UNIT/0.5 ML VIAL SQ SCH ×2 (08:37→20:03)
[2022-07-10] MEDS: DIVALPROEX SODIUM SPRINKLE/DEL-REL 125 MG CAP PO SCH ×2 (08:37→20:03)
[2022-07-10] MEDS: LORATADINE 10 MG TAB PO SCH (08:38)
[2022-07-10] MEDS: levETIRAcetam ORAL SOLN 100MG/ML PO SCH ×2 (08:38→20:02)
[2022-07-10] MEDS: SERTRALINE HCL 50 MG TABLET PO SCH (08:38)
[2022-07-10] MEDS: ASPIRIN 81 MG ECTAB PO SCH (08:38)
[2022-07-10] MEDS: PANTOprazole 40 MG TAB PO SCH ×2 (08:38→20:03)
[2022-07-10 08:45] LABS: BUN Creatinine Ratio 16.1 (10-20); Calcium 8.4 mg/dl (8.5-10.1); Creatinine Clr Calc Pharmacy 107.3 ml/min; Est GFR (African American) 130.3 ml/min; Est GFR (Non-African American) 112.4 ml/min; Potassium 3.9 mmol/L (3.5-5.1)
[2022-07-10] MEDS: LORazepam 0.5 MG TAB PO SCH ×2 (08:45→20:03)
[2022-07-10] MEDS: cefTRIAXone SODIUM 1,000 MG in DEXTROSE 5% 50 ML IV SCH (14:13)
--- NOTE | 2022-07-10 14:30 | Hospitalist Progress Note ---
Date of Service July 10, 2022 Assessment & Plan (1) Sepsis: Plan: pt with a past medical history of seizures, recurrent aspiration pneumonia, torturous esophagus, GERD, cerebral palsy, PAT, PAD recently admitted 06/21- 06/30 for aspiration pneumonia failing Augmentin treatment who presents to the emergency department for fever and weakness. He is febrile, mildly tachycardic, and tachypneic in the ER. He is empirically placed on Zosyn, MRSA nare - 06/22/2022 with repeat pending. Leukocytosis is present to 18 from prior discharge WBC of 7. UA shows 4+ bacteria with leukocyte esterase and nitrates. COVID and flu are negative.Chest x-ray in ER shows right lung airspace opacity with interval improvement, persistent interstitial thickening, trace right pleural effusion.. Sepsis, fever, weakness suspect 2/2 UTI Leukocytosis, febrile, tachycardic, tachypneic on admission. Meets sepsis criteria Lactate normal Patient recently treated for pneumonia 06/21- as inpatient after failing Augmentin outpatient therapy. Did clinically improve with resolution of leukocytosis and completed a course of Zosyn/Doxy in addition to Lasix. CXR shows improved airspace opacity procalcitonin is negative. Suspect patient's recurrent fever is more likely due to UTI with infected appearing UA UA with 4+ bacteria, leukocytes esterase, nitrates Blood cultures, urine culture pending Continue Zosyn CBC, BMP daily Received 1000 cc bolus in ER Continue supplemental maintenance x1 L Tylenol 1 g every 8 hours as needed Torturous esophagus Longstanding, chronic issue Continue PPI Speech recommendations: Minced and moist IDD SI 5 thin liquids IDD SI 0. Slippery. Aspiration precautions, no straws. Must be at least 30 degrees with all meals and 30 minutes after. Strict mouth care. Cerebral palsy Baseline function, smiles laughs intermittently yells out, uses motorized wheelchair normally Paroxysmal atrial tachycardia Propranolol previously held for hypotension Heart rate well controlled without arrhythmia previous admission May resume propranolol at dose reduction if recurs, treat fever/infection and reactive tachycardia at this time History of epilepsy Continue Depakote. Patient did not receive morning of admission, one-time dose given at noon and continued for evening Continue Keppra. Patient did not receive morning of admission, one-time dose given at noon and continued for evening Continue Ativan Topamax previously discontinued, verified with medrec PAD Continue aspirin daily Anemia With history of iron deficiency, received 3 doses of 200 mg Venofer 06/26- Hemoglobin (2) UTI (urinary tract infection): (3) Spina bifida: (4) Hyperlipidemia: (5) GERD (gastroesophageal reflux disease): (6) Esophageal abnormality: (7) Cerebral palsy: (8) Anemia: (9) Acute dehydration: (10) Epilepsy: Admission and Anticipated Discharge Date Admission Date: July 06, 2022 Subjective No acute change noted P.o. intake slightly improved Aircraft Assembler at bedside feeding patient with aspiration precautions Physical Exam Physical Exam: Head and ENT no thyroid enlargement trachea midline Cardiovascular S1-S2 are normal no S3 Lungs bilateral air entry fair no wheezing Abdomen soft nondistended positive bowel sounds no rebound tenderness Extremity shows trace edema Neurologically no nystagmus Results & Data Results & Data ([facility]) Vital Signs (Past 12 Hours) Vital Signs Temp Pulse Pulse Resp BP Pulse Ox O2 Del Method 07/10/22 11:05 36.6 C 72 18 107/68 100 Room Air 07/10/22 10:37 Room Air 07/10/22 07:36 36.6 C 72 18 84/48 L 91 Room Air 07/10/22 07:31 78 07/10/22 03:28 36.6 C 75 20 112/63 94 Room Air PG Care Time/CCT Total # of Minutes Spent Total Time Spent with Patient: Total time spent is greater than 50% in coordination of care (as documented) at patient's floor/unit and/or counseling patient: Coding Level of Care Code 08670 Subseq Hosp Care Lvl 2 Diagnoses Sepsis A41.9 UTI (urinary tract infection) N39.0 Spina bifida Q05.9 Hyperlipidemia E78.5 GERD (gastroesophageal reflux disease) K21.9 Esophageal abnormality K22.9 Cerebral palsy G80.9 Anemia D64.9 Acute dehydration E86.0 Epilepsy G40.909
[2022-07-10] MEDS ORDERED: D5W AND NSS 1,000 ML IV SCH (18:30)
[2022-07-10] MEDS: ACETAMINOPHEN 325 MG TAB PO PRN (19:36)
--- NOTE | 2022-07-10 20:29 | XRay Report ---
XR chest 1V portable CLINICAL HISTORY: worsening breath sounds, hx aspiration pna TECHNIQUE: Single frontal radiograph of the chest was obtained. Comparison: Comparison is made to chest radiograph 07/06/2022 FINDINGS: No lines and tubes are seen. Cardiomegaly is noted. Multifocal airspace opacities are seen. Vascular prominence is noted. No evidence of pleural effusion or pneumothorax. IMPRESSION: 1. Multifocal airspace opacities may represent atelectasis, pneumonia, and/or aspiration. 2. Mild pulmonary edema is seen. ACT 112: Negative or not required by law. Electronically signed by: Dylan Figueredo M.D. 07/10/2022 8:28 PM
[2022-07-10] MEDS ORDERED: KETOROLAC TROMETHAMINE 15 MG/ML VIAL IV ONE (21:07)
[2022-07-10] MEDS ORDERED: ACETAMINOPHEN 325 MG TAB PO ONE (21:15)
[2022-07-11] MEDS: ACETAMINOPHEN 500 MG TAB PO SCH ×3 (06:13→19:44)
[2022-07-11] MEDS: levETIRAcetam ORAL SOLN 100MG/ML PO SCH ×2 (08:14→19:44)
[2022-07-11] MEDS: DIVALPROEX SODIUM SPRINKLE/DEL-REL 125 MG CAP PO SCH ×2 (08:15→19:44)
[2022-07-11] MEDS: LORATADINE 10 MG TAB PO SCH (08:15)
[2022-07-11] MEDS: PANTOprazole 40 MG TAB PO SCH ×2 (08:15→19:43)
[2022-07-11] MEDS: SERTRALINE HCL 50 MG TABLET PO SCH (08:16)
[2022-07-11] MEDS: ASPIRIN 81 MG ECTAB PO SCH (08:16)
[2022-07-11] MEDS: HEPARIN SOD 5,000 UNIT/0.5 ML VIAL SQ SCH ×2 (08:16→19:42)
[2022-07-11] MEDS: LORazepam 0.5 MG TAB PO SCH ×2 (08:29→19:42)
[2022-07-11 08:38] LABS: Hematocrit (blood only) 31.5 % (40.1-51.0); Hemoglobin 9.9 g/dl (14.0-18.0); Mean Corpuscular Hemoglobin 30.9 pg (25.0-34.0); Mean Corpuscular Hgb Conc 31.4 g/dL (32.0-36.0); Mean Corpuscular Volume 98.4 fL (80.0-100.0); Mean Platelet Volume 10.9 fL (9.4-12.4); Platelet Count 173 K/uL (130-400); RDW Coefficient of Variation 18.1 % (11.5-14.5); RDW Standard Deviation 64.7 fL (36.4-46.3)
[2022-07-11 08:56] LABS: BUN Creatinine Ratio 22.8 (10-20); Calcium 8.3 mg/dl (8.5-10.1); Creatinine Clr Calc Pharmacy 105.3 ml/min; Est GFR (African American) 129.4 ml/min; Est GFR (Non-African American) 111.6 ml/min; Potassium 3.6 mmol/L (3.5-5.1)
[2022-07-11] MEDS: cefTRIAXone SODIUM 1,000 MG in DEXTROSE 5% 50 ML IV SCH (13:11)
[2022-07-11] MEDS: metroNIDAZOLE 500 MG/100 ML BAG IV SCH ×2 (16:30→23:13)
[2022-07-11] MEDS: CEFEPIME 2,000 MG in SYRINGE 0 ML IV SCH ×2 (16:30→23:13)
--- NOTE | 2022-07-11 20:20 | Hospitalist Progress Note ---
Date of Service July 11, 2022 Assessment & Plan (1) Sepsis: Plan: pt with a past medical history of seizures, recurrent aspiration pneumonia, torturous esophagus, GERD, cerebral palsy, PAT, PAD recently admitted 06/21- 06/30 for aspiration pneumonia failing Augmentin treatment who presents to the emergency department for fever and weakness. He is febrile, mildly tachycardic, and tachypneic in the ER. He is empirically placed on Zosyn, MRSA nare - 06/22/2022 with repeat pending. Leukocytosis is present to 18 from prior discharge WBC of 7. UA shows 4+ bacteria with leukocyte esterase and nitrates. COVID and flu are negative.Chest x-ray in ER shows right lung airspace opacity with interval improvement, persistent interstitial thickening, trace right pleural effusion.. Sepsis, fever, weakness suspect 2/2 UTI with accompanying possible aspiration Leukocytosis, febrile, tachycardic, tachypneic on admission and admit septic c on riteria and was started on Zosyn Patient subsequently changed to ceftriaxone for UTI Patient had developed tachycardia with some mild shortness of breath associated with fever and hence chest x-ray was obtained and shows evidence of infiltrates Discussed with pharmacy and will start patient on broad-spectrum coverage with cefepime and Flagyl for anaerobic coverage due to suspected aspiration Patient will have MRSA swab to rule out MRSA infection as well Aspiration precautions discussed with the nurse as well as the bedside caregiver Torturous esophagus Longstanding, chronic issue Continue PPI Speech recommendations: Minced and moist IDD SI 5 thin liquids IDD SI 0. Slippery. Aspiration precautions, no straws. Must be at least 30 degrees with all meals and 30 minutes after. Strict mouth care. Cerebral palsy Baseline function, remains nonverbal Paroxysmal atrial tachycardia Propranolol previously held for hypotension Heart rate well controlled without arrhythmia previous admission May resume propranolol at dose reduction if recurs, treat fever/infection and reactive tachycardia at this time History of epilepsy Continue Depakote. Patient did not receive morning of admission, one-time dose given at noon and continued for evening Continue Keppra. Patient did not receive morning of admission, one-time dose given at noon and continued for evening Continue Ativan Topamax previously discontinued, PAD Continue aspirin daily Anemia With history of iron deficiency, received 3 doses of 200 mg Venofer 06/26- Continue to monitor CBC (2) UTI (urinary tract infection): (3) Spina bifida: (4) Hyperlipidemia: (5) GERD (gastroesophageal reflux disease): (6) Esophageal abnormality: (7) Cerebral palsy: (8) Anemia: (9) Acute dehydration: (10) Epilepsy: Admission and Anticipated Discharge Date Admission Date: July 06, 2022 Subjective Patient continues to remain nonverbal Patient p.o. intake is slightly decreased and patient was noted to have a temperature spike yesterday Chest x-ray obtained shows underlying infiltrates Human Machine Interface Engineer at bedside feeding patient with aspiration precautions Physical Exam Physical Exam: Head and ENT no thyroid enlargement Cardiovascular S1-S2 are normal no S3 Lungs bilateral air entry slightly decreased at bases with occasional rhonchi Abdomen soft nondistended positive bowel sounds no rebound tenderness Extremity shows trace edema Neurologically remains nonverbal Results & Data Results & Data ([facility]) Vital Signs (Past 12 Hours) Vital Signs Temp Pulse Pulse Resp BP Pulse Ox O2 Del Method 07/11/22 18:29 36.1 C L 78 18 107/65 95 Room Air 07/11/22 15:01 69 07/11/22 14:27 35.9 C L 70 18 110/71 97 Room Air 07/11/22 11:03 35.6 C L 73 18 99/64 L 93 Room Air 07/11/22 10:53 Room Air PG Care Time/CCT Total # of Minutes Spent Total Time Spent with Patient: Total time spent is greater than 50% in coordination of care (as documented) at patient's floor/unit and/or counseling patient: Coding Level of Care Code 81957 Subseq Hosp Care Lvl 2 Diagnoses Sepsis A41.9 UTI (urinary tract infection) N39.0 Spina bifida Q05.9 Hyperlipidemia E78.5 GERD (gastroesophageal reflux disease) K21.9 Esophageal abnormality K22.9 Cerebral palsy G80.9 Anemia D64.9 Acute dehydration E86.0 Epilepsy G40.909
[2022-07-12] MEDS: ACETAMINOPHEN 500 MG TAB PO SCH ×3 (05:57→19:52)
[2022-07-12 08:09] LABS: Hemoglobin 10.5 g/dl (14.0-18.0); Mean Corpuscular Hemoglobin 30.5 pg (25.0-34.0); Mean Corpuscular Hgb Conc 31.8 g/dL (32.0-36.0); Mean Corpuscular Volume 95.9 fL (80.0-100.0); Mean Platelet Volume 10.7 fL (9.4-12.4); Platelet Count 193 K/uL (130-400); RDW Coefficient of Variation 18.2 % (11.5-14.5); RDW Standard Deviation 63.4 fL (36.4-46.3); Red Blood Count 3.44 M/uL (4.63-6.08); White Blood Count 5.03 K/ul (4.8-10.8)
[2022-07-12 08:39] LABS: Calcium 8.8 mg/dl (8.5-10.1); Creatinine Clr Calc Pharmacy 113.2 ml/min; Est GFR (African American) 133.3 ml/min
[2022-07-12] MEDS: CEFEPIME 2,000 MG in SYRINGE 0 ML IV SCH ×3 (09:00→23:25)
[2022-07-12] MEDS: metroNIDAZOLE 500 MG/100 ML BAG IV SCH ×3 (09:00→23:24)
[2022-07-12] MEDS: DIVALPROEX SODIUM SPRINKLE/DEL-REL 125 MG CAP PO SCH ×2 (09:05→19:52)
[2022-07-12] MEDS: LORazepam 0.5 MG TAB PO SCH ×2 (09:05→19:52)
[2022-07-12] MEDS: HEPARIN SOD 5,000 UNIT/0.5 ML VIAL SQ SCH ×2 (09:07→19:53)
[2022-07-12] MEDS: PANTOprazole 40 MG TAB PO SCH ×2 (09:07→19:53)
[2022-07-12] MEDS: LORATADINE 10 MG TAB PO SCH (09:07)
[2022-07-12] MEDS: ASPIRIN 81 MG ECTAB PO SCH (09:08)
[2022-07-12] MEDS: SERTRALINE HCL 50 MG TABLET PO SCH (09:08)
[2022-07-12] MEDS: levETIRAcetam ORAL SOLN 100MG/ML PO SCH ×2 (09:14→19:52)
[2022-07-12] MEDS: ALBUT/IPRATROP 3MG/0.5MG NEB 3 ML VIAL NEB SCH ×3 (12:34→19:39)
--- NOTE | 2022-07-12 21:10 | Hospitalist Progress Note ---
Date of Service July 12, 2022 Assessment & Plan (1) Sepsis: Plan: pt with a past medical history of seizures, recurrent aspiration pneumonia, torturous esophagus, GERD, cerebral palsy, PAT, PAD recently admitted 06/21- 06/30 for aspiration pneumonia failing Augmentin treatment who presents to the emergency department for fever and weakness. He is febrile, mildly tachycardic, and tachypneic in the ER. He is empirically placed on Zosyn, MRSA nare positive. Leukocytosis is present to 18 from prior discharge WBC of 7. UA shows 4+ bacteria with leukocyte esterase and nitrates. COVID and flu are negative.Chest x-ray in ER shows right lung airspace opacity with interval improvement, persistent interstitial thickening, trace right pleural effusion.. Sepsis, fever, weakness suspect 2/2 UTI with accompanying possible aspiration Leukocytosis, febrile, tachycardic, tachypneic on admission and admit septic criteria on admission Leukocytosis now resolved, remains afebrile, mentation is improved -was started on Zosyn and then subsequently changed to ceftriaxone for UTI as well as pneumonia -Patient had developed tachycardia with some mild shortness of breath associated with fever and hence chest x-ray was obtained and shows evidence of multifocal infiltrates -He was then changed to broad-spectrum coverage with cefepime and Flagyl for anaerobic coverage due to suspected aspiration on 07/11 -MRSA swab to rule out MRSA infection is negative Aspiration precautions discussed with the nurse as well as the bedside caregiver -Follow blood cultures-no growth to date -Follow CBC, CMP (2) Aspiration pneumonia: Plan: Treated with antibiotics Much improved, is on room air Aspiration precautions Is guardian is discussing the possibility of home hospice with a hospice agency due to recurrent aspiration and frequent hospitalizations Follow chest x-ray to resolution (3) Esophageal abnormality: Plan: Torturous esophagus Longstanding, chronic issue Continue PPI Speech recommendations: Minced and moist IDD SI 5 thin liquids IDD SI 0. Slippery. Aspiration precautions, no straws. Must be at least 30 degrees with all meals and 30 minutes after. Strict mouth care. (4) UTI (urinary tract infection): Plan: As a cause of his sepsis Urine culture growing pansensitive Klebsiella pneumonia Continue cefepime Will complete 7-day course (5) GERD (gastroesophageal reflux disease): Plan: Continue PPI twice daily (6) Cerebral palsy: Plan: Cerebral palsy Baseline function, remains nonverbal -Has 28/03 caregivers -Continue sertraline for presumed depression (7) Anemia: Plan: With history of iron deficiency, received 3 doses of 200 mg Venofer 06/26- 06/28 Continue to monitor CBC-hemoglobin up to 10.5 (8) Epilepsy: Plan: History of epilepsy Continue Depakote, Keppra Continue Ativan Topamax previously discontinued (9) Atrial tachycardia: Plan: Paroxysmal atrial tachycardia Propranolol previously held for hypotension Heart rate well controlled without arrhythmia previous admission Has since resumed propranolol at dose reduction if recurs, treat fev er/infection and reactive tachycardia at this time -No need for further telemetry monitoring (10) Spina bifida: Plan: Noted Plan DVT prophylaxis-Heparin SQ Disposition-continued stay but downgrade off telemetry to medical/surgical unit Admission and Anticipated Discharge Date Admission Date: July 06, 2022 Subjective Patient is nonverbal. His financial foundations associate at the bedside says that he has been steadily declining over the past couple of months. He is not his usual self. She is anxious to get him home however. He is eating and drinking, moving his bowels. Die Holder has no concerns. Telemetry with sinus bradycardia Sinus rhythm with rates in the 50s to 70s Review of Systems Review of Systems: All systems reviewed & are unremarkable except as noted in HPI & below Physical Exam Constitutional: WD/WN, vitals as above Eyes: With esotropia Conjunctiva normal, anicteric sclerae Constantly grinding his teeth together Neck: trachea midline, no thyromegaly Respiratory: normal respiratory effort, lungs clear to auscultation Cardiovascular: RRR, no murmur, no edema Chest (Breasts): Chest: normal inspection of chest Gastrointestinal (Abdomen): normal bowel sounds, soft, nontender, no hepatosplenomegaly Musculoskeletal: Extremities: + extremities abnormal to inspection (Contractures in lower extremities), no cyanosis and no clubbing Skin: no rashes, warm and dry Neurologic: moves all extremities and awake; no focal motor deficits Psychiatric: Eye Contact: + poor eye contact Lymphatic: no lymphedema Results & Data Results & Data ([facility]) Vital Signs (Past 12 Hours) Vital Signs Temp Pulse Pulse Resp BP Pulse Ox O2 Del Method 07/12/22 19:05 36.8 C 73 20 127/72 93 Room Air 07/12/22 15:33 70 07/12/22 15:06 36.9 C 75 18 112/62 96 Room Air 07/12/22 12:34 78 18 98 Room Air 07/12/22 10:28 Room Air Laboratory Results 07/12/22 07/12/22 Range/Units 07:51 07:51 WBC 5.03 (4.8-10.8) K/ul RBC 3.44 L (4.63-6.08) M/uL Hgb 10.5 L (14.0-18.0) g/dl Hct 33.0 L (40.1-51.0) % MCV 95.9 (80.0-100.0) fL MCH 30.5 (25.0-34.0) pg MCHC 31.8 L (32.0-36.0) g/dL RDW Std Deviation 63.4 H (36.4-46.3) fL RDW Coeff of [place] 18.2 H (11.5-14.5) % Plt Count 193 (130-400) K/uL MPV 10.7 (9.4-12.4) fL Sodium 143 (136-145) mmol/L Potassium 4.0 (3.5-5.1) mmol/L Chloride 111 H (98-107) mmol/L Carbon Dioxide 26 (21-32) mmol/L Anion Gap 6 (3-11) BUN 9 (6-23) mg/dl Creatinine 0.53 L (0.6-1.4) mg/dl Est Cr Clr Drug Dosing 113.2 ml/min Est GFR ( Amer) 133.3 ml/min Est GFR (Non-Af Amer) 115.0 ml/min BUN/Creatinine Ratio 17.0 (10-20) Glucose 81 (70-99(Fasting)) mg/dl Calcium 8.8 (8.5-10.1) mg/dl PG Care Time/CCT Total # of Minutes Spent Total Time Spent with Patient: Total time spent is greater than 50% in coordination of care (as documented) at patient's floor/unit and/or counseling patient: Coding Level of Care Code 68166 Subseq Hosp Care Lvl 2 Diagnoses Sepsis A41.9 Aspiration pneumonia J69.0 Esophageal abnormality K22.9 UTI (urinary tract infection) N39.0 GERD (gastroesophageal reflux disease) K21.9 Cerebral palsy G80.9 Anemia D64.9 Epilepsy G40.909 Atrial tachycardia I47.1 Spina bifida Q05.9
[2022-07-13] MEDS: ACETAMINOPHEN 500 MG TAB PO SCH ×2 (04:43→12:32)
[2022-07-13 07:00] LABS: Hematocrit (blood only) 30.9 % (40.1-51.0); Hemoglobin 9.9 g/dl (14.0-18.0); Mean Corpuscular Hemoglobin 30.5 pg (25.0-34.0); Mean Corpuscular Volume 95.1 fL (80.0-100.0); Mean Platelet Volume 10.6 fL (9.4-12.4); Platelet Count 202 K/uL (130-400); RDW Coefficient of Variation 18.4 % (11.5-14.5); RDW Standard Deviation 63.6 fL (36.4-46.3); Red Blood Count 3.25 M/uL (4.63-6.08); White Blood Count 4.38 K/ul (4.8-10.8)
[2022-07-13] MEDS: ALBUT/IPRATROP 3MG/0.5MG NEB 3 ML VIAL NEB SCH ×2 (07:21→11:08)
[2022-07-13 07:23] LABS: Albumin Globulin Ratio 0.8 (0.9-2); BUN Creatinine Ratio 14.8 (10-20); Bilirubin,Total 0.2 mg/dl (0.2-1.0); Calcium 8.8 mg/dl (8.5-10.1); Creatinine Clr Calc Pharmacy 111.1 ml/min; Est GFR (African American) 132.3 ml/min; Est GFR (Non-African American) 114.1 ml/min; Globulin 3.6 gm/dl (2.5-4.0); Potassium 3.9 mmol/L (3.5-5.1); Total Protein 6.6 gm/dl (6.0-8.3)
[2022-07-13] MEDS: metroNIDAZOLE 500 MG/100 ML BAG IV SCH (08:08)
[2022-07-13] MEDS: LORazepam 0.5 MG TAB PO SCH (08:08)
[2022-07-13] MEDS: levETIRAcetam ORAL SOLN 100MG/ML PO SCH (08:08)
[2022-07-13] MEDS: CEFEPIME 2,000 MG in SYRINGE 0 ML IV SCH (08:08)
[2022-07-13] MEDS: LORATADINE 10 MG TAB PO SCH (08:14)
[2022-07-13] MEDS: PANTOprazole 40 MG TAB PO SCH (08:15)
[2022-07-13] MEDS: DIVALPROEX SODIUM SPRINKLE/DEL-REL 125 MG CAP PO SCH (08:15)
[2022-07-13] MEDS: ASPIRIN 81 MG ECTAB PO SCH (08:17)
[2022-07-13] MEDS: SERTRALINE HCL 50 MG TABLET PO SCH (08:17)
[2022-07-13] MEDS: HEPARIN SOD 5,000 UNIT/0.5 ML VIAL SQ SCH (08:17)
--- NOTE | 2022-07-13 14:41 | Discharge Summary ---
Date of Service date of admission - July 06, 2022 date of discharge - July 13, 2022 Admission HPI Per Admitting Provider Donny is a 62-year-old male with a past medical history of seizures, recurrent aspiration pneumonia, torturous esophagus, GERD, cerebral palsy, PAT, PAD recen tly admitted 06/21-06/30 for aspiration pneumonia failing Augmentin treatment who presents to the emergency department for fever and weakness. He is febrile, mildly tachycardic, and tachypneic in the ER. He is empirically placed on Zosyn, MRSA nare - 06/22/2022 with repeat pending. Leukocytosis is present to 18 from prior discharge WBC of 7. UA shows 4+ bacteria with leukocyte esterase and nitrates. COVID and flu are negative.Chest x-ray in ER shows right lung airspace opacity with interval improvement, persistent interstitial thickening, trace right pleural effusion.. Donny is seen with Libby (employee from [employer]) at bedside. She reports that he was in his otherwise usual state of health and was doing well recovering well from pneumonia and much more active for the last few days, but awoke this morning with increased fatigue, lethargy, and a fever of 103. No cough, but reports he had actually been doing well and had been using his wheelchair again has been much more engaged after his treatment for pneumonia until this morning. History and physical is limited by nonverbal status. Principal Diagnosis 1. sepsis due to UTI and recurrent aspiration pneumonia 2. severe dysphagia with recurrent aspiration pneumonia 3. cerebral palsy and severe intellectual disability 4. h/o bladder cancer 5. transition to hospice Discharge Exam gen - sitting in wheelchair, agitated, nonverbal, coughing; dysmorphic in appearance mouth - MMM neck - no JVD heart - RRR, s1 s2, no murmur lungs - severe rales R lung, mild rales L base, course BS b/l with wheezing abd - soft NT ND BS+ ext - no edema, pulses 2+ b/l Discharge Data Allergies Allergy/AdvReac Type Severity Reaction Status Date / Time metoclopramide Allergy Intermediate Agitation Verified 06/16/22 11:05 grapefruit Allergy Mild nasal Verified 06/16/22 11:05 congestion chocolate flavor Allergy Unknown Unknown Verified 06/16/22 11:05 Procedures Performed Chest X-Ray 07/06/22 08:30 XR chest 1V portable CLINICAL HISTORY: Sepsis. COMPARISON STUDY: Chest CT June 27, 2022. Chest radiograph June 29, 2022. FINDINGS: Cardiomediastinal silhouette is stable. A hiatal hernia is again noted. There is a trace right pleural effusion. Right lower lung airspace opacity has improved since exam of June 29, 2022. There is persistent interstitial thickening. No pneumothorax. IMPRESSION: 1. Interval improvement in right lung airspace opacity. Persistent interstitial thickening. 2. Trace right pleural effusion. No pneumothorax. ACT 112: Negative or not required by law. Electronically signed by: Marshal Xie M.D. 07/06/2022 8:56 AM Chest X-Ray 07/10/22 19:23 XR chest 1V portable CLINICAL HISTORY: worsening breath sounds, hx aspiration pna TECHNIQUE: Single frontal radiograph of the chest was obtained. Comparison: Comparison is made to chest radiograph 07/06/2022 FINDINGS: No lines and tubes are seen. Cardiomegaly is noted. Multifocal airspace opacities are seen. Vascular prominence is noted. No evidence of pleural effusion or pneumothorax. IMPRESSION: 1. Multifocal airspace opacities may represent atelectasis, pneumonia, and/or aspiration. 2. Mild pulmonary edema is seen. ACT 112: Negative or not required by law. Electronically signed by: Dylan Figueredo M.D. 07/10/2022 8:28 PM Hospital Course (1) Sepsis: Patient was recently admitted 06/21-06/30 for aspiration pneumonia after failing a course of outpatient Augmentin treatment. Presented to the emergency department for fever and weakness. He had evidence of sepsis 2nd to UTI and recurrent aspiration pneumonia. Initially was treated with Zosyn and then subsequently changed to ceftriaxone for UTI as well as his pneumonia. Blood cultures remained negative while here. Urine culture with klebsiella. He did improve with the above measures. [facility] with hosp[facility] services in place. (2) Aspiration pneumonia: Recurrent episodes. Stable in room air while here but with markedly abnormal lung exam and chest x- rays. Patient's guardian along with the [facility] home discussed the possibility of home hospice due to his recurrent aspiration events and frequent hospitalizati ons. He is indeed returning to [facility] with hospice. (3) Esophageal abnormality: Torturous esophagus - longstanding, chronic issue. Despite Minced and moist diet /slippery diet and strict aspiration precautions he still has continued with recurrent aspiration. Continue PPI twice daily. 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 Donny had been declining for some time and, given his severe dysphagia, will continue to aspirate and have episodes of pneumonia. Thus, he is returning to the [facility] with hospice. Total Time Total Time Spent Total Time Spent (In Minutes): 35 Discharge Plan Discharge Items Patient Disposition: Hospice - Home Reason For Visit: UTI, sepsis Discharge Diagnosis: 1. sepsis due to UTI and recurrent aspiration pneumonia 2. severe dysphagia with recurrent aspiration pneumonia 3. cerebral palsy and severe intellectual disability 4. h/o bladder cancer 5. transition to hospice Activity: Resume your previous activity Non-emergency contact: Primary Care Provider and Specialist Call non-emergency contact if: you have any medication questions, your symptoms worsen, your pain is not controlled and your pain is worsening Follow-up/Referrals: Sofia Xie MD [Primary Care Provider] - (follow-up within 1 week ) Diet: Regular Diet Comment: Minced and moist/slippery diet Addtl Attending Provider Instructions: Donny is returning to [facility] with hospice in place due to recurrent aspiration pneumonia, severe dysphagia, failure to thrive, recurrent hospitalizations despite maximal medical efforts, etc. May use the following for palliative purposes/comfort/symptom relief -- 1. guaitussin AC cough syrup -- 5ml every 6 hours as needed for cough. 2. duonebs -- 1 neb treatment every 6 hours as needed for cough/wheeze/shortness of breath. 3. morphine liquid -- 5mg every 6 hours as needed for shortness of breath/air hunger or pain. 4. zofran ODT -- 4mg every 6 hours as needed for nausea or vomiting. 5. lorazepam -- 0.5mg every 6 hours as needed for anxiety/agitation/sleep. He is on chronic ativan 0.5mg PO twice daily scheduled, but the PRN ativan can be used if necessary for additional symptom relief. Donny will likely need oxygen in the future and this can be supplied by the Hospice agency. Please contact the Hospice agency for any questions/concerns/problems/needs/refractory symptoms/etc. It was the pleasure of the [facility] Hospitalist team to care for Donny! -Dr Corona Pending Studies at Discharge: No Stand-Alone Forms: My [facility] Medications and DC Order Prescriptions: New lorazepam [Ativan] 0.5 mg tablet 0.5 mg PO Q6H PRN (Reason: anxiety, agitation, sleep) Qty: 20 0RF Rx Instructions: for hospice/palliative use morphine concentrate 100 mg/5 mL (20 mg/mL) solution 5 mg PO Q6H PRN (Reason: pain or air hunger) Qty: 15 0RF Rx Instructions: for hospice/palliative use codeine-guaifenesin [Guaiatussin AC] 10-100 mg/5 mL liquid 5 ml PO Q6H PRN (Reason: cough) Qty: 120 0RF (DME) nebulizers Misc See Rx Instructions .Route Qty: 1 0RF Rx Instructions: As directed ipratropium-albuterol 0.5 mg-3 mg(2.5 mg base)/3 mL Solution For Nebulization 3 ml NEB Q6H PRN (Reason: cough/wheeze/shortness of breath) Qty: 1 0RF Continued (DME) misc Misc See Rx Instructions .ROUTE .MEDSUPPLY Qty: 1 0RF Rx Instructions: As directed- May cut Keppra tabs and Potassium tabs in HALF for easier admin. (DME) Briefs Medium Misc See Rx Instructions .ROUTE .MEDSUPPLY Qty: 100 5RF Rx Instructions: Medium Briefs polyethylene glycol 3350 17 gram/dose powder 17 g PO .COMPLEX Qty: 765 5RF Rx Instructions: 17 grams PO Every 3 days and as needed daily; if not bowel movement in 3 days diazepam [Diastat AcuDial] 5-7.5-10 mg kit 7.5 mg AL UD PRN (Reason: seizure activity) Qty: 1 0RF Rx Instructions: Give 1 dose rectally if seizure lasts longer than 5 minutes and call 911 miscellaneous medical supply [facility] [place] miscellaneous ONCE Qty: 1 0RF Rx Instructions: REPLACEMENT ARM PAD FOR A WHEELCHAIR Lubriderm Daily Moisture Lotion 1 applic topical BID Qty: 710 5RF (DME) [place] [facility] [place] See Rx Instructions .Route Qty: 1 0RF Rx Instructions: As directed clotrimazole 1 % cream 1 applic topical BID 14 Days Qty: 45 2RF divalproex 125 mg capsule, delayed rel sprinkle 750 mg PO BID 30 Days Qty: 360 8RF docusate sodium [Stool Softener] 100 mg capsule 100 mg PO DAILY PRN (Reason: constipation) Qty: 90 3RF (DME) Manual Wheelchair Device See Rx Instructions .ROUTE .MEDSUPPLY Qty: 1 0RF Rx Instructions: As directed triamcinolone acetonide 0.1 % cream 1 applic TOPICAL BID PRN (Reason: rash) Qty: 30 1RF Rx Instructions: Do not apply in same spot for longer than two weeks. lorazepam 0.5 mg tablet 0.5 mg PO BID Qty: 60 5RF acetaminophen 325 mg Tablet 650 mg PO Q6H MDD 3 GRAMS/24 HOURS PRN (Reason: Fever Or Pain) Rx Instructions: NEEDED FOR HEADACHE/MINOR ACHES AND PAIN OR TEMPERATURE GREATER THAN 100 F Debrox 6.5 % Drops 2 drp OTB 3XWK clindamycin phosphate [Cleocin T] 1 % solution 1 applic topical QAM Rx Instructions: APPLY DIRECTED TO SCALP ketoconazole [Nizoral] 2 % Shampoo 1 applic TOPICAL 2XWK Rx Instructions: USE SHAMPOO TO SCALP EVERY TUESDAY AND TUESDAY Saline Nasal 0.65 % Aerosol,Niles 1 spray INTRANASAL TID PRN (Reason: Dry Nasal Passages) Idabel Saline Gel Niles,Non-Aerosol 1 spray INTRANASAL BID loperamide [Imodium A-D] 2 mg capsule 2 mg PO UD PRN (Reason: Diarrhea) Label Comments: TAKE 2 TABLETS AT ONSET OF LOOSE STOOL THEN TAKE 1 TABLET AFTER EACH LOOSE BOWEL MOVEMENT. TAKE NO MORE THAN 4 DOSES IN 2 DAYS. alum-mag hydroxide-simeth [Antacid-Simethicone] 400-400-40 mg/5 mL Suspension 30 ml PO Q4H PRN (Reason: UPSET STOMACH/VOMITING) sertraline 50 mg tablet 50 mg PO QAM loratadine [Claritin] 10 mg tablet 10 mg PO QAM Aquaphor Healing 41 % ointment 1 applic TOPICAL HS Triple Antibiotic 3.5mg-400 unit- 5,000 unit/gram Ointment 1 applic TOPICAL BID pantoprazole [Protonix] 40 mg tablet,delayed release (DR/EC) 40 mg PO BID Qty: 90 3RF Rx Instructions: Take 1 tablet by mouth twice daily for one month then return to once a day, one hour prior to the first meal of the day. ondansetron 4 mg tablet,disintegrating 4 mg PO Q6H PRN (Reason: nausea and vomiting) Qty: 14 0RF Discontinued aspirin 81 mg tablet,delayed release (DR/EC) 81 mg PO QAM sucralfate 100 mg/mL Suspension 1 g PO QID Qty: 400 0RF furosemide 20 mg Tablet 20 mg PO QAM Qty: 30 0RF potassium chloride 10 mEq capsule, extended release 20 meq PO DAILY Qty: 90 3RF Rx Instructions: Capsule can be opened and sprinkled on soft food. No Action levetiracetam [Keppra] 100 mg/mL solution 1,500 mg PO BID 3 Days Qty: 90 0RF (DME) CHAP STICK See Rx Instructions .Route .MEDSUPPLY Qty: 1 3RF Rx Instructions: As needed Discharge Orders: Discharge Order (Routine); Ordered 07/13/22 Ordered By: Ken Corona Admission Data Admit Date/Time: 07/06/22 12:07 Attending Provider: Ken Corona Admit Provider: Doyle Thompson Primary Care Provider: Sofia Xie Other Providers: Doyle Thompson ; [facility],Home Healthcare Other Interventions: Discharge Summary Assessment (RN) Last Done: 07/13/22 14:26 Coding Level of Care Code D/C DAY MANAGEMENT >30 MINS Diagnoses Sepsis A41.9 Aspiration pneumonia J69.0 Esophageal abnormality K22.9 UTI (urinary tract infection) N39.0 GERD (gastroesophageal reflux disease) K21.9 Cerebral palsy G80.9 Anemia D64.9 Epilepsy G40.909 Atrial tachycardia I47.1 Spina bifida Q05.9 History of bladder cancer Z85.51
== END 2022-07-13 15:13 | disposition hospice, home (50) | DRG 871 ==
LOC: ED 07:54 → SUATTDRO 12:07 → EDINP 12:07 → 2W 13:21

== ENCOUNTER 2022-12-07 13:51 | Inpatient (IN) ==
--- NOTE | 2022-12-07 14:33 | Emergency Department Note ---
Impression & Plan Acute dehydration, Nausea & vomiting, Pneumonia, Nonverbal ED Provider Note NAME: RAMIRO LAZAR AGE: 62 SEX: M : 1960 ARRIVES VIA: Ambulance INFORMANT: Patient, ED PROVIDER(S): Mamadou Mojica MD CHIEF COMPLAINT: Vomiting MEDICAL DECISION MAKING: Patient was seen due to concern for vomiting. The patient is on hospice I did speak with case management in order to ascertain goals of care. In the interim as the patient was actively vomiting without knowing specific goals of care the patient did have an IV started blood work was obtained and the patient was ordered IV fluids and antiemetics. Imaging deferred at this time until awaiting plan of care per hospice after speaking with case management. Only after 2 and half hours after the patient had presented had case management been able to obtain an answer from the patient's legal guardian who is one of the [facility] coordinators who would like to revoke hospice and proceed with further work-up. CAT scan was ordered in addition to chest x-ray Patient's vital signs are grossly unremarkable at this time. The patient's blood work shows normal white count hemoglobin 11 show some anemia which is chronic and stable. Platelet count is normal. Kidney function grossly unremarkable with no obvious electrolyte abnormalities. The patient's chest x-ray She is cardiomegaly and pulmonary edema with a hiatal hernia. Mild bibasilar consolidation CT does show possible pneumonia and prostatomegaly with associated hernia. 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 I did speak the on-call hospital service Dr. Thompson. Treatment for pneumonia defer to inpatient team. Patient was admitted to the medicine service Prior /Outside records reviewed: Did review the patient's most recent GI consultation note from Janine Tineo from May 2022 has a known history of hiatal hernia and esophageal dysmotility. There is no indication for endoscopy at that time. The patient's most recent endoscopy noted in our system is with Dr. Ralph Hunter from April 2022. There was concern that the patient did have a foreign body in the esophagus. Patient did have an impacted grape found in the middle third of the esophagus. Removal was [place]pp[place] with a Boyer net at that time. Differential diagnosis: Gastroenteritis, food borne illness, infections, appendicitis, diverticulitis, inflammatory bowel disease, obstruction, GI bleed, biliary pathology, volvulus, as well as other pathologies. Diagnostics, as interpreted by me: ECG: None Cardiac monitoring: An order was placed for continuous cardiac monitoring. The monitor shows a rate of 92 with sinus rhythm. Patient was placed on pulse oximetry Medical decision rules: None Imaging studies: See below Chest x-ray reviewed and does show possibility of pulmonary edema. HPI: Patient presents from skilled who is nonverbal currently on hospice with persistent vomiting. The reinforced steel placing supervisor states that he has had intermittent vomiting over the last week ever since he ate some green beans and they were concerned about the possibility of esophageal foreign body as he did require treatment last year. Patient did have an esophageal foreign body at that time that was removed. No reported respiratory issues. No recent falls or trauma. Patient reportedly has had recent bowel movement and still urinating. PAST MEDICAL HISTORY: See Below PAST SURGICAL HISTORY: See Below SOCIAL HISTORY: See Below HOME MEDICATIONS: See Below ALLERGIES: See Below VITALS: See Below PHYSICAL EXAMINATION: GENERAL: Vomiting, reinforced steel placing supervisor holding emesis bag. EYE EXAM: Normal conjunctiva. PERRL, no anisocoria and EOM's grossly intact w/o pain. NECK: Supple, no nuchal rigidity, no adenopathy, non-tender. No signs of meningismus. FROM of the neck with good chin to chest and neck extension. No stridor. LUNGS: Clear to auscultation. Normal chest wall mechanics. HEART: NSR, no MRG. ABDOMEN: Abdomen soft, non-tender, no masses, no rebound or guarding. BACK: No CVA TTP. SKIN: No rashes and no bruising. UPPER EXTREMITIES: Upper extremities are grossly normal. LOWER EXTREMITIES: Grossly normal, no edema. NEURO EXAM: Awake and alert, moves all 4 extremities. Past Med/Surg History Medical History Allergic rhinitis Alternating exotropia Anemia Aphasia Atrial tachycardia Bladder carcinoma s/p TURBT 10/2021 Cataracts, both eyes Cerebral palsy Chronic constipation Chronic periodontitis Dermatitis Epilepsy GERD (gastroesophageal reflux disease) History of prematurity Hyperlipidemia Microcephaly Mood disorder PAD (peripheral artery disease) Paraplegia Paroxysmal atrial tachycardia Ptosis, left eyelid Scoliosis Severe intellectual disabilities Spina bifida Surgical History H/O transurethral destruction of bladder lesion 12/2021 History of removal of neck cyst Family History Other Family history non-contributory Social History Smoking Status: Never smoker Second Hand Exposure: No; Hx Alcohol Use: No Hx Substance Use: No Preferred Language: Occitan Communication Ability: Unable Communication Ability Comment: Pt is non verbal Visual 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 Limited 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: No Beliefs That Will Affect Care: None marital status: Single Current Living Situation: Group Home Current Living Situation Comment: skills facility current occupational status: disabled Feels Safe at Home: Yes caffeine: Yes Dental Care, Regularly: Yes Assistive Devices: Wheelchair Allergies Allergies Allergy/AdvReac Type Severity Reaction Status Date / Time metoclopramide Allergy Intermediate Agitation Verified 12/07/22 18:52 Home Meds Home Medications Medication Instructions Recorded Confirmed carbamide peroxide 6.5 % ear drops 2 drp OTB 3XWK 10/19/18 12/07/22 (Debrox) loperamide 2 mg capsule (Imodium 2 mg PO UD PRN Diarrhea 06/03/19 12/07/22 A-D) white petrolatum 41 % topical 1 applic topical HS 04/12/22 12/07/22 ointment (Aquaphor Healing) acetaminophen 650 mg rectal 650 mg IL Q4H PRN PAIN/FEVER 12/07/22 12/07/22 suppository calcium carbonate 500 mg-vitamin 1 tab PO DAILY 12/07/22 12/07/22 D3 5 mcg (200 unit) tablet (Oyster Shell Calcium-Vitamin D3) clotrimazole 1 % topical cream 1 applic topical BID PRN Rash 12/07/22 12/07/22 food supplemt, lactose-reduced 1 ea PO TIDM 12/07/22 12/07/22 haloperidol lactate 2 mg/mL oral 1 mg PO Q4H PRN 12/07/22 12/07/22 concentrate NAUSEA/VOMITING/ANXIETY hyoscyamine sulfate 0.125 mg 0.125 mg PO Q4H PRN TERMINAL 12/07/22 12/07/22 sublingual tablet SECRETIONS lorazepam 1 mg tablet 0.5 mg PO Q4H PRN 12/07/22 12/07/22 RESTLESSNESS/INSOMNIA lorazepam 1 mg tablet 2 mg sublingual .Q15MIN PRN 12/07/22 12/07/22 Seizure Activity ondansetron 4 mg disintegrating 4 - 6 mg PO Q6H PRN nausea and 12/07/22 12/07/22 tablet vomiting sodium chloride 0.65 % nasal spray 1 spray intranasal TID 12/07/22 12/07/22 aerosol (Saline Nasal) Previous Rx's Medication Instructions Recorded Wheelchair (Manual) (Manual #1 ea 11/07/19 Wheelchair) diaper,brief,adult,disposable #100 ea 03/19/20 (Briefs Medium) diazepam 5 mg-7.5 mg-10 mg rectal 7.5 mg IL UD PRN seizure activity 10/05/21 kit (Diastat AcuDial) #1 ea triamcinolone acetonide 0.1 % 1 applic topical BID PRN rash #30 11/03/21 topical cream grams emollient combination no.92 1 applic topical BID Dry skin #710 12/15/21 (Lubriderm Daily Moisture lotion) mL Hospital Bed Homecare (Hospital #1 ea 05/11/22 Bed) divalproex 125 mg capsule,delayed 750 mg PO BID 30 days #360 caps 06/02/22 release sprinkle docusate sodium 100 mg capsule 100 mg PO DAILY PRN constipation 07/02/22 (Stool Softener) #90 caps ipratropium 0.5 mg-albuterol 3 mg 3 ml NEB Q6H PRN 07/13/22 (2.5 mg base)/3 mL nebulization cough/wheeze/shortness of breath soln #1 box morphine concentrate 100 mg/5 mL 5 mg (0.25 mL) PO Q6H PRN pain or 07/13/22 (20 mg/mL) oral solution air hunger #15 mL nebulizers #1 ea 07/13/22 levetiracetam 100 mg/mL oral 1,500 mg (15 mL) PO BID 3 days #90 07/16/22 solution (Keppra) mL CHAP STICK #1 ea 07/20/22 sertraline 50 mg tablet 50 mg PO QAM #90 tabs 07/22/22 ketoconazole 2 % shampoo 1 applic topical 2XWK #120 mL 08/13/22 acetaminophen 325 mg tablet 650 mg PO Q6H PRN Fever Or Pain 09/23/22 #30 tabs aluminum-mag hydroxide-simethicone 30 ml PO Q4H PRN UPSET 09/23/22 400 mg-400 mg-40 mg/5 mL oral susp STOMACH/VOMITING #355 mL (Antacid-Simethicone) neomycin-bacitracn Zn-polymyx 3.5 1 applic topical BID PRN abrasions 09/23/22 mg-400 unit-5,000 unit/gram top #28.4 grams oint (Triple Antibiotic) lorazepam 0.5 mg tablet 0.5 mg PO .COMPLEX #60 tabs 10/20/22 pantoprazole 40 mg tablet,delayed 40 mg PO DAILY #90 tabs 10/22/22 release (Protonix) Wheelchair (Manual) (Manual #1 ea 10/26/22 Wheelchair) clindamycin phosphate 1 % topical 1 applic topical DAILY #60 ea 11/05/22 swab sodium chloride-aloe vera nasal 1 applic topical BID #14.1 grams 11/08/22 gel ([place] Saline nasal gel) polyethylene glycol 3350 17 17 g PO .COMPLEX #765 grams 11/30/22 gram/dose oral powder loratadine 10 mg tablet (Claritin) 10 mg PO DAILY allergies #90 tabs 12/06/22 Results & Data (ED) Vital Signs Vital Signs - 24 hr 12/07/22 16:15 12/07/22 16:19 Pulse Rate 90 Pulse Rate [Right Finger] 83 Pulse Rhythm [Right Finger] Regular Respiratory Rate 18 Respiratory Effort / Characteristics Non-Labored Spontaneous Respiratory Depth Normal Respiratory Pattern Regular Blood Pressure [Right Arm] 116/68 Blood Pressure Mean [Right Arm] 84 Blood Pressure Position [Right Arm] Lying Pulse Oximetry 91 Oxygen Delivery Method Room Air Home Medications Current Medication List: was personally reviewed by me Laboratory Data Attestation: I reviewed the patient's lab results. 12/07/22 15:37 12/07/22 15:37 Lab Results 12/07/22 12/07/22 12/07/22 Range/Units 15:37 15:37 15:37 WBC 10.05 (4.8-10.8) K/ul RBC 3.41 L (4.70-6.10) M/uL Hgb 11.1 L (14.0-18.0) g/dl POC Hgb (14.0-18.0) g/dl Hct 34.2 L (42.0-52.0) % POC Hct (42-52) % MCV 100.3 H (80.0-100.0) fL MCH 32.6 (25.0-34.0) pg MCHC 32.5 (32.0-36.0) g/dL RDW Std Deviation 50.3 H (36.4-46.3) fL RDW Coeff of [place] 13.5 (11.5-14.5) % Plt Count 360 (130-400) K/uL MPV 10.1 (9.4-12.4) fL Immature Gran % (Auto) 0.7 % Neut % (Auto) 72.4 % Lymph % (Auto) 17.6 % [place] % (Auto) 8.3 % Eos % (Auto) 0.8 % Baso % (Auto) 0.2 % Neut # (Auto) 7.28 H (1.40-6.50) K/uL Lymph # (Auto) 1.77 (1.2-3.4) K/uL [place] # (Auto) 0.83 H (0.11-0.59) K/uL Eos # (Auto) 0.08 (0-0.50) K/uL Baso # (Auto) 0.02 (0-0.2) K/uL Immature Gran # (Auto) 0.07 (0.01-0.20) K/uL POC Sodium (135-144) mmol/L Sodium 138 (136-145) mmol/L POC Potassium (3.3-5.0) mmol/L Potassium 3.8 (3.5-5.1) mmol/L POC Chloride (101-112) mmol/L Chloride 103 (98-107) mmol/L Carbon Dioxide 28 (21-32) mmol/L POC Total CO2 (24-31) mmol/L Anion Gap 7 (3-11) POC Anion Gap (16-25) mmol/L POC BUN (7-18) mg/dl BUN 18 (6-23) mg/dl Creatinine 0.81 (0.6-1.4) mg/dl POC Creatinine (0.6-1.3) mg/dl Est Cr Clr Drug Dosing 72.0 ml/min Est GFR ( Amer) 112.0 ml/min Est GFR (Non-Af Amer) 96.6 ml/min BUN/Creatinine Ratio 22.2 H (10-20) Glucose 98 (70-99(Fasting)) mg/dl POC Glucose (other) (70-99) mg/dl Calcium 9.0 (8.6-10.3) mg/dl POC Ioniz Calcium [place] (1.12-1.32) mmol/l Total Bilirubin 0.4 (0.2-1.0) mg/dl AST 15 (13-39) U/L ALT 14 (7-52) U/L Alkaline Phosphatase 60 (34-104) U/L Total Protein 6.4 (6.0-8.3) gm/dl Albumin 3.2 L (3.4-5.0) gm/dl Globulin 3.2 (2.5-4.0) gm/dl Albumin/Globulin Ratio 1.0 (0.9-2) Lipase 13 (11-82) U/L Urine Color Urine Appearance (Clear) Urine pH (4.5-7.5) Ur Specific [place] (1.000-1.030) Urine Protein (Negative) Urine Glucose (UA) (Negative) Urine Ketones (Negative) Urine Blood (Negative) Urine Nitrite (Negative) Urine Bilirubin (Negative) Urine Urobilinogen (Negative) Ur Leukocyte Esterase (Negative) Urine WBC (Auto) (0-5) /hpf Urine RBC (Auto) (0-4) /hpf U Hyaline Cast (Auto) (0-5) /lpf U Epithel Cells (Auto) (0-5) /lpf Urine Bacteria (Auto) (Negative) Urine Yeast SARS-CoV-2, RNA, NAAT NEGATIVE (NEGATIVE) 12/07/22 12/07/22 Range/Units 15:43 16:01 WBC (4.8-10.8) K/ul RBC (4.70-6.10) M/uL Hgb (14.0-18.0) g/dl POC Hgb 11.9 L (14.0-18.0) g/dl Hct (42.0-52.0) % POC Hct 35 L (42-52) % MCV (80.0-100.0) fL MCH (25.0-34.0) pg MCHC (32.0-36.0) g/dL RDW Std Deviation (36.4-46.3) fL RDW Coeff of [place] (11.5-14.5) % Plt Count (130-400) K/uL MPV (9.4-12.4) fL Immature Gran % (Auto) % Neut % (Auto) % Lymph % (Auto) % [place] % (Auto) % Eos % (Auto) % Baso % (Auto) % Neut # (Auto) (1.40-6.50) K/uL Lymph # (Auto) (1.2-3.4) K/uL [place] # (Auto) (0.11-0.59) K/uL Eos # (Auto) (0-0.50) K/uL Baso # (Auto) (0-0.2) K/uL Immature Gran # (Auto) (0.01-0.20) K/uL POC Sodium 140 (135-144) mmol/L Sodium (136-145) mmol/L POC Potassium 3.8 (3.3-5.0) mmol/L Potassium (3.5-5.1) mmol/L POC Chloride 103 (101-112) mmol/L Chloride (98-107) mmol/L Carbon Dioxide (21-32) mmol/L POC Total CO2 27 (24-31) mmol/L Anion Gap (3-11) POC Anion Gap 15.0 L (16-25) mmol/L POC BUN 17 (7-18) mg/dl BUN (6-23) mg/dl Creatinine (0.6-1.4) mg/dl POC Creatinine 0.8 (0.6-1.3) mg/dl Est Cr Clr Drug Dosing ml/min Est GFR ( Amer) ml/min Est GFR (Non-Af Amer) ml/min BUN/Creatinine Ratio (10-20) Glucose (70-99(Fasting)) mg/dl POC Glucose (other) 103 H (70-99) mg/dl Calcium (8.6-10.3) mg/dl POC Ioniz Calcium [place] 1.21 (1.12-1.32) mmol/l Total Bilirubin (0.2-1.0) mg/dl AST (13-39) U/L ALT (7-52) U/L Alkaline Phosphatase (34-104) U/L Total Protein (6.0-8.3) gm/dl Albumin (3.4-5.0) gm/dl Globulin (2.5-4.0) gm/dl Albumin/Globulin Ratio (0.9-2) Lipase (11-82) U/L Urine Color Dark Yellow Urine Appearance Cloudy A (Clear) Urine pH 5.5 (4.5-7.5) Ur Specific [place] 1.029 (1.000-1.030) Urine Protein Negative (Negative) Urine Glucose (UA) Negative (Negative) Urine Ketones Trace H (Negative) Urine Blood Negative (Negative) Urine Nitrite Negative (Negative) Urine Bilirubin Negative (Negative) Urine Urobilinogen Negative (Negative) Ur Leukocyte Esterase 2+ H (Negative) Urine WBC (Auto) >30 H (0-5) /hpf Urine RBC (Auto) 0-4 (0-4) /hpf U Hyaline Cast (Auto) >30 H (0-5) /lpf U Epithel Cells (Auto) 0-5 (0-5) /lpf Urine Bacteria (Auto) Negative (Negative) Urine Yeast Not Reportable SARS-CoV-2, RNA, NAAT (NEGATIVE) Administered Medications Heparin Sodium (Porcine) (Heparin Sod 5,000 Unit/0.5 Ml Vial) 5,000 units SQ Q12 MALCOLM Stop: 01/06/23 22:06 Last Admin: 12/08/22 09:33 Dose: 5,000 units Documented By: Admin: 12/07/22 22:41 Dose: 5,000 units Documented By: JEREMIAH Ampicillin Sodium/Sulbactam Sodium 3,000 mg/ Sodium Chloride 108 mls @ 200 mls /hr IV Q6H MALCOLM; Protocol Stop: 12/14/22 21:59 Last Infusion: 12/08/22 11:58 Dose: 0 mls/hr Documented By: Admin: 12/08/22 11:25 Dose: 200 mls/hr Documented By: Infusion: 12/08/22 05:32 Dose: 0 mls/hr Documented By: Admin: 12/08/22 04:44 Dose: 200 mls/hr Documented By: Infusion: 12/07/22 23:57 Dose: 0 mls/hr Documented By: Admin: 12/07/22 22:41 Dose: 200 mls/hr Documented By: JEREMIAH Levetiracetam 1,500 mg/ Sodium (Chloride) 115 mls @ 440 mls/hr IV BID [facility]M Stop: 01/06/23 22:06 Last Infusion: 12/08/22 10:22 Dose: 0 mls/hr Documented By: Admin: 12/08/22 10:05 Dose: 440 mls/hr Documented By: Infusion: 12/07/22 23:05 Dose: 0 mls/hr Documented By: Admin: 12/07/22 22:41 Dose: 440 mls/hr Documented By: JEREMIAH Pantoprazole Sodium 40 mg/ (Syringe) 10 mls @ 5 mls/min IV DAILY@1100 [place] Stop: 01/07/23 12:24 Last Admin: 12/08/22 14:16 Dose: 5 mls/min Documented By: PRESTON Lorazepam (Lorazepam 2 Mg/1 Ml Vial) 0.5 mg IV QAM [place] Stop: 01/07/23 08:59 Last Admin: 12/08/22 09:33 Dose: 0.5 mg Documented By: PRESTON Lorazepam (Lorazepam 2 Mg/1 Ml Vial) 1 mg IV HS [place] Stop: 01/06/23 22:06 Last Admin: 12/07/22 22:42 Dose: 1 mg Documented By: JEREMIAH Polyethylene Glycol (Polyethylene (Miralax) 17 Gm Pack) 17 gm PO DAILY [place] Stop: 01/07/23 12:29 Last Admin: 12/08/22 14:16 Dose: 17 gm Documented By: PRESTON Discontinued Medications Sodium Chloride (Nss) 500 mls @ 999 mls/hr IV .Q31M STA Stop: 12/07/22 15:11 Last Infusion: 12/07/22 17:00 Dose: 0 mls/hr Documented By: Admin: 12/07/22 15:33 Dose: 999 mls/hr Documented By: GEOFFREY Potassium Chloride/Sodium Chloride (Normal Saline W/20 Meq Kcl) 20 meq in 1,000 mls @ 70 mls/hr IV .[id number] MALCOLM; Protocol Stop: 01/06/23 19:29 Last Infusion: 12/08/22 12:19 Dose: 0 mls/hr Documented By: Admin: 12/08/22 11:05 Dose: 70 mls/hr Documented By: Infusion: 12/08/22 11:05 Dose: 70 mls/hr Documented By: Admin: 12/07/22 22:41 Dose: 70 mls/hr Documented By: JEREMIAH Ioversol (Optiray 350 100ml) 85 ml IV ONCE ONE Stop: 12/07/22 17:01 Last Admin: 12/07/22 17:01 Dose: 85 ml Documented By: LE Ondansetron HCl (Ondansetron Inj 2 Mg/Ml 2 Ml Vial) 4 mg IV NOW STA Stop: 12/07/22 14:36 Last Admin: 12/07/22 15:33 Dose: 4 mg Documented By: GEOFFREY Imaging Data Radiologist's Impression: Abdomen/Pelvis CT 12/07/22 16:[address] WITH IV CONTRAST CT DOSE: 409.92 mGy.cm HISTORY: Acute nausea with vomiting vomiting, TECHNIQUE: Multiaxial CT images of the abdomen and pelvis were performed following the IV administration of 85 cc of Optiray, A dose lowering technique was utilized adhering to the principles of ALARA. COMPARISON STUDY: Chest radiograph of same day, Chest CT 06/27/2022, CT abdomen and pelvis 05/02/2022 FINDINGS: Cardiomegaly. Trace pleural effusions. Bibasilar consolidative opacities with tree-in-bud nodules, right greater than left. Limited exam secondary to positioning. No pneumatosis or pneumoperitoneum. Coronary artery calcifications. Unremarkable spleen, pancreas, contracted gallbladder, adrenal glands and liver. Patency of the hepatic and portal veins. Unremarkable kidneys. There is no hydronephrosis. Punctate nonobstructing calculus of the inferior pole right kidney. Urinary bladder wall thickening with partial distention. Prostatomegaly with coarse central prostatic calcifications. 1.3 cm left lateral urinary bladder diverticulum. No abdominal aortic aneurysm. No lymphadenopathy. Moderate sized hiatal hernia with fluid-filled distal esophagus. No bowel obstruction or bowel wall thickening. Mild colonic fecal retention. Unchanged 3 cm soft tissue attenuating structure posterior to the cecum. Unchanged appearance of the left inguinal canal. The appendix is not definitively seen. No secondary signs of acute appendicitis. Unremarkable soft tissues. Lumbar levoscoliosis. No acute fracture identified. IMPRESSION: 1. Limited exam as above. 2. Trace pleural effusions with right greater than left bibasilar consolidation compatible with pneumonia versus aspiration pneumonitis. 3. No bowel obstruction or bowel wall thickening. 4. Prostamegaly with chronic bladder outlet obstruction. Correlate with urinalysis to exclude cystitis. 5. Moderate sized hiatal hernia. 6. Additional findings as above. ACT 112: Negative or not required by law. The above report was generated using voice recognition software. It may contain grammatical, syntax or spelling errors. Electronically signed by: Torsten Hester M.D. 12/07/2022 5:17 PM Chest X-Ray 12/07/22 16:25 XR chest 1V portable HISTORY: 62 years-old Male vomiting, nonverbal acute nausea with vomiting COMPARISON: Chest radiograph 07/10/2022 TECHNIQUE: AP view of the chest FINDINGS: Cardiac silhouette is enlarged. Unchanged right hemidiaphragmatic elevation. No pneumothorax. Probable trace pleural effusions. Pulmonary vascular congestion with interstitial coarsening. Moderate sized hiatal hernia. Mild bibasilar consolidation. Degenerative changes of the shoulders and spine. IMPRESSION: 1. Cardiomegaly with pulmonary edema. 2. Mild bibasilar consolidation. 3. Hiatal hernia. ACT 112: Negative or not required by law. The above report was generated using voice recognition software. It may contain grammatical, syntax or spelling errors. Electronically signed by: Torsten Hester M.D. 12/07/2022 4:41 PM Discharge Plan Visit Data Chief Complaint: Food Bolus Stated Complaint: FOOD BOLUS ED Provider: Mamadou Mojica Discharge Problem: Acute dehydration, Nausea & vomiting, Pneumonia, Nonverbal Patient Disposition: Admitted As Inpatient Discharge Instructions Interventions: ED Discharge Assessment Last Done: 12/07/22 21:24
[2022-12-07] MEDS ORDERED: ONDANSETRON INJ 2 MG/ML 2 ML VIAL IV STA (14:35)
[2022-12-07] MEDS ORDERED: SODIUM CHLORIDE 0.9% 500 ML IV STA (14:41)
[2022-12-07 15:55] LABS: iSTAT Creatinine 0.8 mg/dl (0.6-1.3); iSTAT Hemoglobin 11.9 g/dl (14.0-18.0); iSTAT Ionized Calcium 1.21 mmol/l (1.12-1.32); iSTAT Potassium 3.8 mmol/L (3.3-5.0)
[2022-12-07 16:07] LABS: Basophils # (auto) 0.02 K/uL (0-0.2); Basophils % (auto) 0.2 %; Eosinophils # (auto) 0.08 K/uL (0-0.50); Eosinophils % (auto) 0.8 %; Hematocrit (blood only) 34.2 % (42.0-52.0); Hemoglobin 11.1 g/dl (14.0-18.0); Immature Granulocytes # (auto) 0.07 K/uL (0.01-0.20); Immature Granulocytes % (auto) 0.7 %; Lymphocytes # (auto) 1.77 K/uL (1.2-3.4); Lymphocytes % (auto) 17.6 %; Mean Corpuscular Hemoglobin 32.6 pg (25.0-34.0); Mean Corpuscular Hgb Conc 32.5 g/dL (32.0-36.0); Mean Corpuscular Volume 100.3 fL (80.0-100.0); Mean Platelet Volume 10.1 fL (9.4-12.4); Monocytes # (auto) 0.83 K/uL (0.11-0.59); Monocytes % (auto) 8.3 %; Neutrophils # (auto) 7.28 K/uL (1.40-6.50); Neutrophils % (auto) 72.4 %; Platelet Count 360 K/uL (130-400); RDW Coefficient of Variation 13.5 % (11.5-14.5); RDW Standard Deviation 50.3 fL (36.4-46.3); Red Blood Count 3.41 M/uL (4.70-6.10); White Blood Count 10.05 K/ul (4.8-10.8)
[2022-12-07 16:23] LABS: Albumin Level 3.2 gm/dl (3.4-5.0); Bilirubin,Total 0.4 mg/dl (0.2-1.0); Potassium 3.8 mmol/L (3.5-5.1)
[2022-12-07 16:29] LABS: BUN Creatinine Ratio 22.2 (10-20); Est GFR (Non-African American) 96.6 ml/min; Globulin 3.2 gm/dl (2.5-4.0); Total Protein 6.4 gm/dl (6.0-8.3)
[2022-12-07 16:35] LABS: Appearance Urine Cloudy (Clear); Bacteria Urine Automated Negative (Negative); Bilirubin Urine Negative (Negative); Blood Urine Negative (Negative); Color Urine Dark Yellow; Epithelial Cell Urine Auto 0-5 /lpf (0-5); Glucose Urine UA Negative (Negative); Ketones Urine Trace (Negative); Leukocyte Esterase Urine 2+ (Negative); Nitrite Urine Negative (Negative); Protein Urine Negative (Negative); RBC Urine Automated 0-4 /hpf (0-4); Specific Gravity Urine 1.029 (1.000-1.030); Urobilinogen Urine Negative (Negative); WBC Urine Automated >30 /hpf (0-5); pH Urine 5.5 (4.5-7.5)
[2022-12-07 16:39] LABS: Cast Urine Automated >30 /lpf (0-5)
--- NOTE | 2022-12-07 16:43 | XRay Report ---
XR chest 1V portable HISTORY: 62 years-old Male vomiting, nonverbal acute nausea with vomiting COMPARISON: Chest radiograph 07/10/2022 TECHNIQUE: AP view of the chest FINDINGS: Cardiac silhouette is enlarged. Unchanged right hemidiaphragmatic elevation. No pneumothorax. Probabl e trace pleural effusions. Pulmonary vascular congestion with interstitial coarsening. Moderate sized hiatal hernia. Mild bibasilar consolidation. Degenerative changes of the shoulders and spine. IMPRESSION: 1. Cardiomegaly with pulmonary edema. 2. Mild bibasilar consolidation. 3. Hiatal hernia. ACT 112: Negative or not required by law. The above report was generated using voice recognition software. It may contain grammatical, syntax o r spelling errors. Electronically signed by: Torsten Hester M.D. 12/07/2022 4:41 PM
[2022-12-07] MEDS ORDERED: OPTIRAY 350 100ml IV ONE (17:00)
--- NOTE | 2022-12-07 17:19 | CT Scan Report ---
ABDOMEN AND PELVIS CT WITH IV CONTRAST CT DOSE: 409.92 mGy.cm HISTORY: Acute nausea with vomiting vomiting, TECHNIQUE: Multiaxial CT images of the abdomen and pelvis were performed following the IV administrat ion of 85 cc of Optiray, A dose lowering technique was utilized adhering to the principles of ALARA. COMPARISON STUDY: Chest radiograph of same day, Chest CT 06/27/2022, CT abdomen and pelvis 05/02/2022 FINDINGS: Cardiomegaly. Trace pleural effusions. Bibasilar consolidative opacities with tree-in-bud n odules, right greater than left. Limited exam secondary to positioning. No pneumatosis or pneumoperit oneum. Coronary artery calcifications. Unremarkable spleen, pancreas, contracted gallbladder, adrenal glands and liver. Patency of the hepat ic and portal veins. Unremarkable kidneys. There is no hydronephrosis. Punctate nonobstructing calcul us of the inferior pole right kidney. Urinary bladder wall thickening with partial distention. Prosta tomegaly with coarse central prostatic calcifications. 1.3 cm left lateral urinary bladder diverticul um. No abdominal aortic aneurysm. No lymphadenopathy. Moderate sized hiatal hernia with fluid-filled distal esophagus. No bowel obstruction or bowel wall t hickening. Mild colonic fecal retention. Unchanged 3 cm soft tissue attenuating structure posterior t o the cecum. Unchanged appearance of the left inguinal canal. The appendix is not definitively seen. No secondary signs of acute appendicitis. Unremarkable soft tissues. Lumbar levoscoliosis. No acute f racture identified. IMPRESSION: 1. Limited exam as above. 2. Trace pleural effusions with right greater than left bibasilar consolidation compatible with pneum onia versus aspiration pneumonitis. 3. No bowel obstruction or bowel wall thickening. 4. Prostamegaly with chronic bladder outlet obstruction. Correlate with urinalysis to exclude cystiti s. 5. Moderate sized hiatal hernia. 6. Additional findings as above. ACT 112: Negative or not required by law. The above report was generated using voice recognition software. It may contain grammatical, syntax o r spelling errors. Electronically signed by: Torsten Hester M.D. 12/07/2022 5:17 PM
--- NOTE | 2022-12-07 19:03 | History & Physical Report ---
Date of Service December 07, 2022 Assessment & Plan (1) Nausea & vomiting: Plan: Nausea/vomiting Improved at time of bedside, concern for aspiration event and patient had coughed up a small green navas earlier in the week. Family concerned about potential food bolus, patient is clinically improved at bedside at time of admission Patient previously hospice, however the setting is continued nausea/vomiting suspected aspiration pneumonia decision maker request that hospice be revoked and that he continue to have assessment and treatment as inpatient. N.p.o. Speech consulted Patient is somnolent more than baseline, suspect possible aspiration pneumonia based on imaging. Treated as below. Not able to tolerate a barium swallow at time of admission If recurrent nausea/vomiting not improved symptomatic care follow-up with EGD While n.p.o. lorazepam converted to IV 0.5 mg a.m./1 mg p.m., Keppra converted to 1500 mg IV Cerebral palsy Baseline function, smiles laughs intermittently yells out, uses motorized wheelchair normally Paroxysmal atrial tachycardia No longer on propanolol, heart rate is regular on admission Heart rate well controlled without arrhythmia previous admission History of epilepsy Keppra, Ativan converted to IV as noted above Seizure precautions On-call Ativan if seizure occurs DVT prophylaxis: Heparin twice daily, patient bedbound Diet: NPO. Patient now on pured diet DIRECTOR BUSINESS INTEGRATION CODE STATUS DNR/DNI, confirmed with patient advocate and paperwork at bedside (2) Epilepsy: (3) Aspiration pneumonia: (4) Cerebral palsy: History of Present Illness Primary Care Provider: Sofia Xie MD Donny is a 62-year-old male past medical history of seizures, recurrent aspiration, tortuous esophagus, cerebral palsy, PAD, GERD, and recurrent aspiration pneumonia who was seen in the hospital for lethargy after vomiting. Patient was previously hospice, his decision maker would like to revoke hospice at this time and would like treatment for aspiration pneumonia and nausea/vomiting. Patient did have an episode of vigorous vomiting after which he vomited a small green navas approximately 1 week ago, otherwise had been on a pured diet. Since arriving in the ER he is not vomiting after getting a dose of Zofran, but is somnolent and has been more somnolent overall in the last 24 hours. He does seem to have more difficulty with nausea/vomiting over the last few days. No fevers. Awakens transiently to voice, nonverbal. Does not grimace on epigastric palpation. Appears nondistressed laying in bed. Last year did have a great removed by Dr. Mccracken was impacted and patient was with a torturous esophagus. Medical History: Reviewed Medications: Reviewed Surgical History: Reviewed Family history: Reviewed Allergies: Reviewed Social History: Reviewed Code Status: DNR/DNI Allergies Allergy/AdvReac Type Severity Reaction Status Date / Time metoclopramide Allergy Intermediate Agitation Verified 12/07/22 18:52 chocolate flavor Allergy Unknown Unknown Verified 12/07/22 18:52 Home Medications Medication Instructions Recorded Confirmed Type carbamide peroxide 6.5 % ear drops 2 drp OTB 3XWK 10/19/18 12/07/22 History (Debrox) loperamide 2 mg capsule (Imodium 2 mg PO UD PRN Diarrhea 06/03/19 12/07/22 History A-D) Wheelchair (Manual) (Manual #1 ea 11/07/19 11/05/22 Rx Wheelchair) diaper,brief,adult,disposable #100 ea 03/19/20 11/05/22 Rx (Briefs Medium) diazepam 5 mg-7.5 mg-10 mg rectal 7.5 mg DE UD PRN seizure activity 10/05/21 12/07/22 Rx kit (Diastat AcuDial) #1 ea triamcinolone acetonide 0.1 % 1 applic topical BID PRN rash #30 11/03/21 12/07/22 Rx topical cream grams emollient combination no.92 1 applic topical BID Dry skin #710 12/15/21 12/07/22 Rx (Lubriderm Daily Moisture lotion) mL white petrolatum 41 % topical 1 applic topical HS 04/12/22 12/07/22 History ointment (Aquaphor Healing) Hospital Bed Homecare (Hospital #1 ea 05/11/22 11/05/22 Rx Bed) divalproex 125 mg capsule,delayed 750 mg PO BID 30 days #360 caps 06/02/22 12/07/22 Rx release sprinkle docusate sodium 100 mg capsule 100 mg PO DAILY PRN constipation 07/02/22 12/07/22 Rx (Stool Softener) #90 caps ipratropium 0.5 mg-albuterol 3 mg 3 ml NEB Q6H PRN 07/13/22 12/07/22 Rx (2.5 mg base)/3 mL nebulization cough/wheeze/shortness of breath soln #1 box morphine concentrate 100 mg/5 mL 5 mg (0.25 mL) PO Q6H PRN pain or 07/13/22 12/07/22 Rx (20 mg/mL) oral solution air hunger #15 mL nebulizers #1 ea 07/13/22 11/05/22 Rx levetiracetam 100 mg/mL oral 1,500 mg (15 mL) PO BID 3 days #90 07/16/22 12/07/22 Rx solution (Keppra) mL CHAP STICK #1 ea 07/20/22 11/05/22 Rx sertraline 50 mg tablet 50 mg PO QAM #90 tabs 07/22/22 12/07/22 Rx ketoconazole 2 % shampoo 1 applic topical 2XWK #120 mL 08/13/22 12/07/22 Rx acetaminophen 325 mg tablet 650 mg PO Q6H PRN Fever Or Pain 09/23/22 12/07/22 Rx #30 tabs aluminum-mag hydroxide-simethicone 30 ml PO Q4H PRN UPSET 09/23/22 12/07/22 Rx 400 mg-400 mg-40 mg/5 mL oral susp STOMACH/VOMITING #355 mL (Antacid-Simethicone) neomycin-bacitracn Zn-polymyx 3.5 1 applic topical BID PRN abrasions 09/23/22 12/07/22 Rx mg-400 unit-5,000 unit/gram top #28.4 grams oint (Triple Antibiotic) lorazepam 0.5 mg tablet 0.5 mg PO .COMPLEX #60 tabs 10/20/22 12/07/22 Rx pantoprazole 40 mg tablet,delayed 40 mg PO DAILY #90 tabs 10/22/22 12/07/22 Rx release (Protonix) Wheelchair (Manual) (Manual #1 ea 10/26/22 11/05/22 Rx Wheelchair) clindamycin phosphate 1 % topical 1 applic topical DAILY #60 ea 11/05/2212/07 Rx swab sodium chloride-aloe vera nasal 1 applic topical BID #14.1 grams 11/08/22 12/07/22 Rx gel ([place] nasal gel) polyethylene glycol 3350 17 17 g PO .COMPLEX #765 grams 11/30/22 12/07/22 Rx gram/dose oral powder loratadine 10 mg tablet (Claritin) 10 mg PO DAILY allergies #90 tabs 12/06/22 12/07/22 Rx acetaminophen 650 mg rectal 650 mg DE Q4H PRN PAIN/FEVER 12/07/22 12/07/22 History suppository calcium carbonate 500 mg-vitamin 1 tab PO DAILY 12/07/22 12/07/22 History D3 5 mcg (200 unit) tablet (Oyster Shell Calcium-Vitamin D3) clotrimazole 1 % topical cream 1 applic topical BID PRN Rash 12/07/22 12/07/22 History food supplemt, lactose-reduced 1 ea PO TIDM 12/07/22 12/07/22 History haloperidol lactate 2 mg/mL oral 1 mg PO Q4H PRN 12/07/22 12/07/22 History concentrate NAUSEA/VOMITING/ANXIETY hyoscyamine sulfate 0.125 mg 0.125 mg PO Q4H PRN TERMINAL 12/07/22 12/07/22 History sublingual tablet SECRETIONS lorazepam 1 mg tablet 0.5 mg PO Q4H PRN 12/07/22 12/07/22 History RESTLESSNESS/INSOMNIA lorazepam 1 mg tablet 2 mg sublingual .Q15MIN PRN 12/07/22 12/07/22 History Seizure Activity ondansetron 4 mg disintegrating 4 - 6 mg PO Q6H PRN nausea and 12/07/22 12/07/22 History tablet vomiting sodium chloride 0.65 % nasal spray 1 spray intranasal TID 12/07/22 12/07/22 History aerosol (Saline Nasal) Past Med/Surg History Medical History (Updated 12/07/22 @ 19:20 by Doyle Thompson MD) Allergic rhinitis Alternating exotropia Anemia Aphasia Atrial tachycardia Bladder carcinoma s/p TURBT 10/2021 Cataracts, both eyes Cerebral palsy Chronic constipation Chronic periodontitis Dermatitis Epilepsy GERD (gastroesophageal reflux disease) History of prematurity Hyperlipidemia Microcephaly Mood disorder PAD (peripheral artery disease) Paraplegia Paroxysmal atrial tachycardia Ptosis, left eyelid Scoliosis Severe intellectual disabilities Spina bifida Surgical History H/O transurethral destruction of bladder lesion 12/2021 History of removal of neck cyst Family History Other Family history non-contributory Social History Smoking Status: Never smoker Second Hand Exposure: No; Hx Alcohol Use: No Hx Substance Use: No Preferred Language: Turkmen Communication Ability: Impaired Communication Ability Comment: at baseline pt is non verbal Visual 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 Limited Personnel Quality Assurance Auditor Required: No Beliefs That Will Affect Care: None marital status: Single Current Living Situation: Other Current Living Situation Comment: skills facility current occupational status: disabled Feels Safe at Home: Yes caffeine: Yes Dental Care, Regularly: Yes Assistive Devices: Wheelchair Review of Systems Review of Systems: All systems reviewed & are unremarkable except as noted in HPI & below Physical Exam Physical Exam: General: Somnolent, awakens to voice, sternal rub, withdraws to pinch but is nonverbal Pulm: Coarse in the bases. Diminished, without wheezes symmetrical chest rise. No increased work of breathing. No respiratory distress. Cardiac: RRR, -mrg. Radial pulses intact and symmetrical. Abdominal: Does not grimace to abdominal palpation. Soft. Extremities: Flexed posture,Muscle atrophy consistent with cerebral palsy. Results & Data Results & Data Vital Signs (Past 12 Hours) Vital Signs Temp Pulse Pulse Resp BP BP Pulse Ox 12/07/22 18:53 79 18 98/60 L 91 12/07/22 16:19 83 18 116/68 91 12/07/22 16:15 90 12/07/22 14:51 93 12/07/22 14:13 36.8 C 93 H 18 122/70 99 12/07/22 14:07 36.8 C 93 H 18 122/70 99 O2 Del Method 12/07/22 18:53 Room Air 12/07/22 16:19 Room Air 12/07/22 16:15 12/07/22 14:51 Room Air 12/07/22 14:13 Room Air 12/07/22 14:07 Room Air PG Care Time/CCT Total # of Minutes Spent Total Time Spent with Patient: Total time spent is greater than 50% in coordination of care (as documented) at patient's floor/unit and/or counseling patient: Coding Level of Care Code 85034 INT INP/OBS CARE MIN Diagnoses Nausea & vomiting R11.2 Epilepsy G40.909 Aspiration pneumonia J69.0 Cerebral palsy G80.9
[2022-12-07] MEDS ORDERED: LORazepam 2 MG/1 ML VIAL IV PRN (22:07)
[2022-12-07] MEDS: HEPARIN SOD 5,000 UNIT/0.5 ML VIAL SQ SCH (22:41)
[2022-12-07] MEDS: AMPICILLIN/SULBACTAM SOD 3,000 MG in 0.9 % SODIUM CHLORIDE 100 ML IV SCH (22:41)
[2022-12-07] MEDS: levETIRAcetam 1,500 MG in 0.9 % SODIUM CHLORIDE 100 ML IV SCH (22:41)
[2022-12-07] MEDS: NSS + 20MEQ KCL 20 MEQ/1,000 ML BAG IV SCH (22:41)
[2022-12-07] MEDS: LORazepam 2 MG/1 ML VIAL IV SCH (22:42)
[2022-12-08] MEDS: AMPICILLIN/SULBACTAM SOD 3,000 MG in 0.9 % SODIUM CHLORIDE 100 ML IV SCH ×4 (04:44→21:47)
--- NOTE | 2022-12-08 08:21 | Hospitalist Progress Note ---
Date of Service December 08, 2022 Assessment & Plan (1) Nausea & vomiting: Plan: Nausea/vomiting Improved at time of bedside, concern for aspiration event and patient had coughed up a small green navas about 2 weeks prior, extensive aspiration history/food bolus s/p disimpaction by EGD w/ Dr Mccracken for grapes x 2 last year, was on hospice but apparently revoked to bring in for tx of aspiration pneumonia (CM to call caregiver/coordinator for more information as they were "only giving zofran") Speech consulted -->ordered pureed diet. Caregiver at bedside stated minced/moist prior, had been started on pureed diet on Tuesday this week Given IV keppra/lorazepam while NPO, reordered his depakote sprinkles now that ordering diet (prior seizure activity, due for labs --> low, could be from not able to keep down at home w/ his n/v) Will continue IV keppra/ativan for now, switch back to PO in AM if doing alright Can d/c IVF, monitor tolerance of diet Protonix IVP daily in meantime given GERD at baseline/hernia Antiemetics prn Repeat CXR multifocal, will repeat viral biofire Monitor progress/supplemental O2 as needed Will need to clarify goals of care/treatment with his caregivers --> CM to contact head RN Radha Will also add miralax daily, dulcolax OK if needed for constipation to prevent issues from such. Dulcolax OK if not moving bowels (2) Aspiration pneumonia: Plan: Suspected, recurrent--> given reports of aspiration for green navas about 2 weeks ago-- of note, did have grape removed by Dr Mccracken 2nd to impaction/torturous esophagus speech consulted as above but known extensive aspiration/permissive Pureed diet ordered Unasyn for tx aspiration pneumonia Supplemental o2 as needed (100% on RA) Duoneb prn Not able to effectively use incentive spirometer. Could consider vibration vest? Will need clarification on hospice services for at d/c (3) Epilepsy: Plan: History of epilepsy Keppra, Ativan converted to IV as noted above Seizure precautions On-call Ativan if seizure occurs Valproic acid level low --> ?if from n/v and not gettig pills did have seizure reported over past several months per PCP notes Resumed PO depakote for today, sprinkles. Rec repeating level outpatient as above Can also reach out to Dr Bhakta/neuro in AM/increase his depakote (4) Cerebral palsy: Plan: Cerebral palsy Baseline function, smiles laughs intermittently yells out, uses motorized wheelchair normally When feeling better, he likes to be in the wheelchair and roaming halls w/ aides Paroxysmal atrial tachycardia No longer on propanolol, heart rate is regular on admission Heart rate well controlled without arrhythmia previous admission DVT prophylaxis: Heparin twice daily, patient bedbound CODE STATUS DNR/DNI Admission and Anticipated Discharge Date Admission Date: December 07, 2022 Supervising Physician Co-Signing Physician Notes The patient was not seen by me. The chart was reviewed. Case discussed with MOLLY Morillo. Agree with assessment and plan Subjective eval around 1130, caregiver at bedside. states patient much more alert/interactive today. when discussing prior hospice from last admission, she notes that was revoked to be able to bring him in for treatment of aspiration pneuomnia as hospice not really giving him anything/doing much at home. CM to follow up/discussion w/ Radha for more information. Caregiver notes he had choking episode on green navas about 2 weeks ago. States they transitioned to pureed diet on tuesday. Discussed chips/snacks outside of that diet to cause repeated aspiration and without any surgical intervention/torturous esophagus will continue to tx w/ abx and investigate goals for at d/c, whether needing new hospice agency or clearer goals. Questions/concerns addressed at this time. Diet to come up for lunch, ordered PO depakote sprinkles and discussed repeating labs outpatient pending further discussions. Physical Exam Physical Exam: General: awake in bed, leaning to the right as he usually does, no acute distress, nonverbal at baseline, chronically ill appearing Resp: no tachypnea/increased work of breathing, coarse breath sounds in the bases, but no overt wheezing, on room air CV: RRR, quiet HS, no m/r/g, trace pedal edema GI: _BS, soft/NT, no withdrawal/grimacing Extremities: Flexed posture,Muscle atrophy consistent with cerebral palsy. Results & Data Results & Data Vital Signs (Past 12 Hours) Vital Signs Temp Pulse Resp BP Pulse Ox O2 Del Method 04/04/23 22:08 Room Air 12/07/22 22:08 36.6 C 80 18 94/54 L 97 Room Air 12/07/22 22:00 36.6 C 80 18 94/54 L 97 Room Air 12/07/22 21:23 76 20 99/61 L 91 Room Air Laboratory Results 12/08/22 12/08/22 12/08/22 Range/Units 08:54 08:54 08:54 WBC (4.8-10.8) K/ul RBC (4.70-6.10) M/uL Hgb (14.0-18.0) g/dl POC Hgb (14.0-18.0) g/dl Hct (42.0-52.0) % POC Hct (42-52) % MCV (80.0-100.0) fL MCH (25.0-34.0) pg MCHC (32.0-36.0) g/dL RDW Std Deviation (36.4-46.3) fL RDW Coeff of [place] (11.5-14.5) % Plt Count (130-400) K/uL MPV (9.4-12.4) fL Immature Gran % (Auto) % Neut % (Auto) % Lymph % (Auto) % [place] % (Auto) % Eos % (Auto) % Baso % (Auto) % Neut # (Auto) (1.40-6.50) K/uL Lymph # (Auto) (1.2-3.4) K/uL [place] # (Auto) (0.11-0.59) K/uL Eos # (Auto) (0-0.50) K/uL Baso # (Auto) (0-0.2) K/uL Immature Gran # (Auto) (0.01-0.20) K/uL POC Sodium (135-144) mmol/L Sodium (136-145) mmol/L POC Potassium (3.3-5.0) mmol/L Potassium (3.5-5.1) mmol/L POC Chloride (101-112) mmol/L Chloride (98-107) mmol/L Carbon Dioxide (21-32) mmol/L POC Total CO2 (24-31) mmol/L Anion Gap (3-11) POC Anion Gap (16-25) mmol/L POC BUN (7-18) mg/dl BUN (6-23) mg/dl Creatinine (0.6-1.4) mg/dl POC Creatinine (0.6-1.3) mg/dl Est Cr Clr Drug Dosing ml/min Est GFR ( Amer) ml/min Est GFR (Non-Af Amer) ml/min BUN/Creatinine Ratio (10-20) Glucose (70-99(Fasting)) mg/dl POC Glucose (other) (70-99) mg/dl Calcium (8.6-10.3) mg/dl POC Ioniz Calcium Ladan (1.12-1.32) mmol/l Magnesium (1.7-2.4) mg/dl Total Bilirubin (0.2-1.0) mg/dl AST (13-39) U/L ALT (7-52) U/L Alkaline Phosphatase (34-104) U/L Total Protein (6.0-8.3) gm/dl Albumin (3.4-5.0) gm/dl Globulin (2.5-4.0) gm/dl Albumin/Globulin Ratio (0.9-2) Lipase (11-82) U/L Vitamin B12 968 H (180-914) pg/ml Folate > 22.30 (>5.38) ng/ml Procalcitonin (0-0.5) ng/ml Urine Color Urine Appearance (Clear) Urine pH (4.5-7.5) Ur Specific [place] (1.000-1.030) Urine Protein (Negative) Urine Glucose (UA) (Negative) Urine Ketones (Negative) Urine Blood (Negative) Urine Nitrite (Negative) Urine Bilirubin (Negative) Urine Urobilinogen (Negative) Ur Leukocyte Esterase (Negative) Urine WBC (Auto) (0-5) /hpf Urine RBC (Auto) (0-4) /hpf U Hyaline Cast (Auto) (0-5) /lpf U Epithel Cells (Auto) (0-5) /lpf Urine Bacteria (Auto) (Negative) Urine Yeast Valproic Acid 32 L (50-100) mcg/ml Levetiracetam Pending SARS-CoV-2, RNA, NAAT (NEGATIVE) 12/08/22 12/08/22 12/07/22 Range/Units 08:54 08:54 20:08 WBC 6.95 (4.8-10.8) K/ul RBC 2.96 L (4.70-6.10) M/uL Hgb 9.5 L (14.0-18.0) g/dl POC Hgb (14.0-18.0) g/dl Hct 30.1 L (42.0-52.0) % POC Hct (42-52) % MCV 101.7 H (80.0-100.0) fL MCH 32.1 (25.0-34.0) pg MCHC 31.6 L (32.0-36.0) g/dL RDW Std Deviation 50.8 H (36.4-46.3) fL RDW Coeff of [place] 13.6 (11.5-14.5) % Plt Count 324 (130-400) K/uL MPV 10.2 (9.4-12.4) fL Immature Gran % (Auto) 0.4 % Neut % (Auto) 66.1 % Lymph % (Auto) 21.4 % [place] % (Auto) 8.8 % Eos % (Auto) 3.0 % Baso % (Auto) 0.3 % Neut # (Auto) 4.59 (1.40-6.50) K/uL Lymph # (Auto) 1.49 (1.2-3.4) K/uL [place] # (Auto) 0.61 H (0.11-0.59) K/uL Eos # (Auto) 0.21 (0-0.50) K/uL Baso # (Auto) 0.02 (0-0.2) K/uL Immature Gran # (Auto) 0.03 (0.01-0.20) K/uL POC Sodium (135-144) mmol/L Sodium 143 (136-145) mmol/L POC Potassium (3.3-5.0) mmol/L Potassium 4.1 (3.5-5.1) mmol/L POC Chloride (101-112) mmol/L Chloride 111 H (98-107) mmol/L Carbon Dioxide 26 (21-32) mmol/L POC Total CO2 (24-31) mmol/L Anion Gap 6 (3-11) POC Anion Gap (16-25) mmol/L POC BUN (7-18) mg/dl BUN 16 (6-23) mg/dl Creatinine 0.63 (0.6-1.4) mg/dl POC Creatinine (0.6-1.3) mg/dl Est Cr Clr Drug Dosing 96.3 ml/min Est GFR ( Amer) 124.1 ml/min Est GFR (Non-Af Amer) 107.1 ml/min BUN/Creatinine Ratio 25.4 H (10-20) Glucose 79 (70-99(Fasting)) mg/dl POC Glucose (other) (70-99) mg/dl Calcium 8.1 L (8.6-10.3) mg/dl POC Ioniz Calcium Lad[place] (1.12-1.32) mmol/l Magnesium 2.0 (1.7-2.4) mg/dl Total Bilirubin (0.2-1.0) mg/dl AST (13-39) U/L ALT (7-52) U/L Alkaline Phosphatase (34-104) U/L Total Protein (6.0-8.3) gm/dl Albumin (3.4-5.0) gm/dl Globulin (2.5-4.0) gm/dl Albumin/Globulin Ratio (0.9-2) Lipase (11-82) U/L Vitamin B12 (180-914) pg/ml Folate (>5.38) ng/ml Procalcitonin 0.44 (0-0.5) ng/ml Urine Color Urine Appearance (Clear) Urine pH (4.5-7.5) Ur Specific [place] (1.000-1.030) Urine Protein (Negative) Urine Glucose (UA) (Negative) Urine Ketones (Negative) Urine Blood (Negative) Urine Nitrite (Negative) Urine Bilirubin (Negative) Urine Urobilinogen (Negative) Ur Leukocyte Esterase (Negative) Urine WBC (Auto) (0-5) /hpf Urine RBC (Auto) (0-4) /hpf U Hyaline Cast (Auto) (0-5) /lpf U Epithel Cells (Auto) (0-5) /lpf Urine Bacteria (Auto) (Negative) Urine Yeast Valproic Acid (50-100) mcg/ml Levetiracetam SARS-CoV-2, RNA, NAAT (NEGATIVE) 12/07/22 12/07/22 12/07/22 Range/Units 16:01 15:43 15:37 WBC (4.8-10.8) K/ul RBC (4.70-6.10) M/uL Hgb (14.0-18.0) g/dl POC Hgb 11.9 L (14.0-18.0) g/dl Hct (42.0-52.0) % POC Hct 35 L (42-52) % MCV (80.0-100.0) fL MCH (25.0-34.0) pg MCHC (32.0-36.0) g/dL RDW Std Deviation (36.4-46.3) fL RDW Coeff of [place] (11.5-14.5) % Plt Count (130-400) K/uL MPV (9.4-12.4) fL Immature Gran % (Auto) % Neut % (Auto) % Lymph % (Auto) % [place] % (Auto) % Eos % (Auto) % Baso % (Auto) % Neut # (Auto) (1.40-6.50) K/uL Lymph # (Auto) (1.2-3.4) K/uL [place] # (Auto) (0.11-0.59) K/uL Eos # (Auto) (0-0.50) K/uL Baso # (Auto) (0-0.2) K/uL Immature Gran # (Auto) (0.01-0.20) K/uL POC Sodium 140 (135-144) mmol/L Sodium (136-145) mmol/L POC Potassium 3.8 (3.3-5.0) mmol/L Potassium (3.5-5.1) mmol/L POC Chloride 103 (101-112) mmol/L Chloride (98-107) mmol/L Carbon Dioxide (21-32) mmol/L POC Total CO2 27 (24-31) mmol/L Anion Gap (3-11) POC Anion Gap 15.0 L (16-25) mmol/L POC BUN 17 (7-18) mg/dl BUN (6-23) mg/dl Creatinine (0.6-1.4) mg/dl POC Creatinine 0.8 (0.6-1.3) mg/dl Est Cr Clr Drug Dosing ml/min Est GFR ( Amer) ml/min Est GFR (Non-Af Amer) ml/min BUN/Creatinine Ratio (10-20) Glucose (70-99(Fasting)) mg/dl POC Glucose (other) 103 H (70-99) mg/dl Calcium (8.6-10.3) mg/dl POC Ioniz Calcium [place] 1.21 (1.12-1.32) mmol/l Magnesium (1.7-2.4) mg/dl Total Bilirubin (0.2-1.0) mg/dl AST (13-39) U/L ALT (7-52) U/L Alkaline Phosphatase (34-104) U/L Total Protein (6.0-8.3) gm/dl Albumin (3.4-5.0) gm/dl Globulin (2.5-4.0) gm/dl Albumin/Globulin Ratio (0.9-2) Lipase (11-82) U/L Vitamin B12 (180-914) pg/ml Folate (>5.38) ng/ml Procalcitonin (0-0.5) ng/ml Urine Color Dark Yellow Urine Appearance Cloudy A (Clear) Urine pH 5.5 (4.5-7.5) Ur Specific [place] 1.029 (1.000-1.030) Urine Protein Negative (Negative) Urine Glucose (UA) Negative (Negative) Urine Ketones Trace H (Negative) Urine Blood Negative (Negative) Urine Nitrite Negative (Negative) Urine Bilirubin Negative (Negative) Urine Urobilinogen Negative (Negative) Ur Leukocyte Esterase 2+ H (Negative) Urine WBC (Auto) >30 H (0-5) /hpf Urine RBC (Auto) 0-4 (0-4) /hpf U Hyaline Cast (Auto) >30 H (0-5) /lpf U Epithel Cells (Auto) 0-5 (0-5) /lpf Urine Bacteria (Auto) Negative (Negative) Urine Yeast Not Reportable Valproic Acid (50-100) mcg/ml Levetiracetam SARS-CoV-2, RNA, NAAT NEGATIVE (NEGATIVE) 12/07/22 12/07/22 Range/Units 15:37 15:37 WBC 10.05 (4.8-10.8) K/ul RBC 3.41 L (4.70-6.10) M/uL Hgb 11.1 L (14.0-18.0) g/dl POC Hgb (14.0-18.0) g/dl Hct 34.2 L (42.0-52.0) % POC Hct (42-52) % MCV 100.3 H (80.0-100.0) fL MCH 32.6 (25.0-34.0) pg MCHC 32.5 (32.0-36.0) g/dL RDW Std Deviation 50.3 H (36.4-46.3) fL RDW Coeff of [place]og[place] 13.5 (11.5-14.5) % Plt Count 360 (130-400) K/uL MPV 10.1 (9.4-12.4) fL Immature Gran % (Auto) 0.7 % Neut % (Auto) 72.4 % Lymph % (Auto) 17.6 % [place] % (Auto) 8.3 % Eos % (Auto) 0.8 % Baso % (Auto) 0.2 % Neut # (Auto) 7.28 H (1.40-6.50) K/uL Lymph # (Auto) 1.77 (1.2-3.4) K/uL [place] # (Auto) 0.83 H (0.11-0.59) K/uL Eos # (Auto) 0.08 (0-0.50) K/uL Baso # (Auto) 0.02 (0-0.2) K/uL Immature Gran # (Auto) 0.07 (0.01-0.20) K/uL POC Sodium (135-144) mmol/L Sodium 138 (136-145) mmol/L POC Potassium (3.3-5.0) mmol/L Potassium 3.8 (3.5-5.1) mmol/L POC Chloride (101-112) mmol/L Chloride 103 (98-107) mmol/L Carbon Dioxide 28 (21-32) mmol/L POC Total CO2 (24-31) mmol/L Anion Gap 7 (3-11) POC Anion Gap (16-25) mmol/L POC BUN (7-18) mg/dl BUN 18 (6-23) mg/dl Creatinine 0.81 (0.6-1.4) mg/dl POC Creatinine (0.6-1.3) mg/dl Est Cr Clr Drug Dosing 72.0 ml/min Est GFR ( Amer) 112.0 ml/min Est GFR (Non-Af Amer) 96.6 ml/min BUN/Creatinine Ratio 22.2 H (10-20) Glucose 98 (70-99(Fasting)) mg/dl POC Glucose (other) (70-99) mg/dl Calcium 9.0 (8.6-10.3) mg/dl POC Ioniz Calcium [place] (1.12-1.32) mmol/l Magnesium (1.7-2.4) mg/dl Total Bilirubin 0.4 (0.2-1.0) mg/dl AST 15 (13-39) U/L ALT 14 (7-52) U/L Alkaline Phosphatase 60 (34-104) U/L Total Protein 6.4 (6.0-8.3) gm/dl Albumin 3.2 L (3.4-5.0) gm/dl Globulin 3.2 (2.5-4.0) gm/dl Albumin/Globulin Ratio 1.0 (0.9-2) Lipase 13 (11-82) U/L Vitamin B12 (180-914) pg/ml Folate (>5.38) ng/ml Procalcitonin (0-0.5) ng/ml Urine Color Urine Appearance (Clear) Urine pH (4.5-7.5) Ur Specific [place] (1.000-1.030) Urine Protein (Negative) Urine Glucose (UA) (Negative) Urine Ketones (Negative) Urine Blood (Negative) Urine Nitrite (Negative) Urine Bilirubin (Negative) Urine Urobilinogen (Negative) Ur Leukocyte Esterase (Negative) Urine WBC (Auto) (0-5) /hpf Urine RBC (Auto) (0-4) /hpf U Hyaline Cast (Auto) (0-5) /lpf U Epithel Cells (Auto) (0-5) /lpf Urine Bacteria (Auto) (Negative) Urine Yeast Valproic Acid (50-100) mcg/ml Levetiracetam SARS-CoV-2, RNA, NAAT (NEGATIVE) Diagnostic Findings Abdomen/Pelvis CT 12/07/22 16:[address] WITH IV CONTRAST CT DOSE: 409.92 mGy.cm HISTORY: Acute nausea with vomiting vomiting, TECHNIQUE: Multiaxial CT images of the abdomen and pelvis were performed following the IV administration of 85 cc of Optiray, A dose lowering technique was utilized adhering to the principles of ALARA. COMPARISON STUDY: Chest radiograph of same day, Chest CT 06/27/2022, CT abdomen and pelvis 05/02/2022 FINDINGS: Cardiomegaly. Trace pleural effusions. Bibasilar consolidative opacities with tree-in-bud nodules, right greater than left. Limited exam secondary to positioning. No pneumatosis or pneumoperitoneum. Coronary artery calcifications. Unremarkable spleen, pancreas, contracted gallbladder, adrenal glands and liver. Patency of the hepatic and portal veins. Unremarkable kidneys. There is no hydronephrosis. Punctate nonobstructing calculus of the inferior pole right kidney. Urinary bladder wall thickening with partial distention. Prostatomegaly with coarse central prostatic calcifications. 1.3 cm left lateral urinary bladder diverticulum. No abdominal aortic aneurysm. No lymphadenopathy. Moderate sized hiatal hernia with fluid-filled distal esophagus. No bowel obstruction or bowel wall thickening. Mild colonic fecal retention. Unchanged 3 cm soft tissue attenuating structure posterior to the cecum. Unchanged appearance of the left inguinal canal. The appendix is not definitively seen. No secondary signs of acute appendicitis. Unremarkable soft tissues. Lumbar levoscoliosis. No acute fracture identified. IMPRESSION: 1. Limited exam as above. 2. Trace pleural effusions with right greater than left bibasilar consolidation compatible with pneumonia versus aspiration pneumonitis. 3. No bowel obstruction or bowel wall thickening. 4. Prostamegaly with chronic bladder outlet obstruction. Correlate with urinalysis to exclude cystitis. 5. Moderate sized hiatal hernia. 6. Additional findings as above. ACT 112: Negative or not required by law. The above report was generated using voice recognition software. It may contain grammatical, syntax or spelling errors. Electronically signed by: Torsten Hester M.D. 12/07/2022 5:17 PM Chest X-Ray 12/07/22 16:25 XR chest 1V portable HISTORY: 62 years-old Male vomiting, nonverbal acute nausea with vomiting COMPARISON: Chest radiograph 07/10/2022 TECHNIQUE: AP view of the chest FINDINGS: Cardiac silhouette is enlarged. Unchanged right hemidiaphragmatic elevation. No pneumothorax. Probable trace pleural effusions. Pulmonary vascular congestion with interstitial coarsening. Moderate sized hiatal hernia. Mild bibasilar consolidation. Degenerative changes of the shoulders and spine. IMPRESSION: 1. Cardiomegaly with pulmonary edema. 2. Mild bibasilar consolidation. 3. Hiatal hernia. ACT 112: Negative or not required by law. The above report was generated using voice recognition software. It may contain grammatical, syntax or spelling errors. Electronically signed by: Torsten Hester M.D. 12/07/2022 4:41 PM Chest X-Ray 12/08/22 08:23 XR chest 1V portable CLINICAL HISTORY: f/u consolidation COMPARISON STUDY: Chest CT June 27, 2022. Chest radiograph December 07, 2022. FINDINGS: There is no pneumothorax. Small right pleural effusion is noted. A hiatal hernia is present. Cardiomediastinal silhouette is stable. Bibasilar opacities are greater on the right. There is associated interstitial thickening. The appearance of the chest is similar to prior chest radiograph. IMPRESSION: 1. No significant change in bibasilar airspace opacities, greater within the right lung. Associated interstitial thickening. The findings favor multifocal pneumonia or aspiration pneumonitis. 2. Small right pleural effusion. ACT 112: Negative or not required by law. Electronically signed by: Marshal Xie M.D. 12/08/2022 10:27 AM PG Care Time/CCT Total # of Minutes Spent Total Time Spent with Patient: Total time spent is greater than 50% in coordination of care (as documented) at patient's floor/unit and/or counseling patient: Coding Level of Care Code 29823 SUB INP/OBS CARE 3/50MIN Diagnoses Nausea & vomiting R11.2 Aspiration pneumonia J69.0 Epilepsy G40.909 Cerebral palsy G80.9
[2022-12-08] MEDS: HEPARIN SOD 5,000 UNIT/0.5 ML VIAL SQ SCH ×2 (09:33→21:46)
[2022-12-08] MEDS: LORazepam 2 MG/1 ML VIAL IV SCH ×2 (09:33→21:46)
[2022-12-08] MEDS: levETIRAcetam 1,500 MG in 0.9 % SODIUM CHLORIDE 100 ML IV SCH ×2 (10:05→22:39)
[2022-12-08 10:13] LABS: Basophils # (auto) 0.02 K/uL (0-0.2); Basophils % (auto) 0.3 %; Eosinophils # (auto) 0.21 K/uL (0-0.50); Hematocrit (blood only) 30.1 % (42.0-52.0); Hemoglobin 9.5 g/dl (14.0-18.0); Immature Granulocytes # (auto) 0.03 K/uL (0.01-0.20); Immature Granulocytes % (auto) 0.4 %; Lymphocytes # (auto) 1.49 K/uL (1.2-3.4); Lymphocytes % (auto) 21.4 %; Mean Corpuscular Hemoglobin 32.1 pg (25.0-34.0); Mean Corpuscular Hgb Conc 31.6 g/dL (32.0-36.0); Mean Corpuscular Volume 101.7 fL (80.0-100.0); Mean Platelet Volume 10.2 fL (9.4-12.4); Monocytes # (auto) 0.61 K/uL (0.11-0.59); Monocytes % (auto) 8.8 %; Neutrophils # (auto) 4.59 K/uL (1.40-6.50); Neutrophils % (auto) 66.1 %; Platelet Count 324 K/uL (130-400); RDW Coefficient of Variation 13.6 % (11.5-14.5); RDW Standard Deviation 50.8 fL (36.4-46.3); Red Blood Count 2.96 M/uL (4.70-6.10); White Blood Count 6.95 K/ul (4.8-10.8)
--- NOTE | 2022-12-08 10:28 | XRay Report ---
XR chest 1V portable CLINICAL HISTORY: f/u consolidation COMPARISON STUDY: Chest CT June 27, 2022. Chest radiograph December 07, 2022. FINDINGS: There is no pneumothorax. Small right pleural effusion is noted. A hiatal hernia is present . Cardiomediastinal silhouette is stable. Bibasilar opacities are greater on the right. There is asso ciated interstitial thickening. The appearance of the chest is similar to prior chest radiograph. IMPRESSION: 1. No significant change in bibasilar airspace opacities, greater within the right lung. Associated i nterstitial thickening. The findings favor multifocal pneumonia or aspiration pneumonitis. 2. Small right pleural effusion. ACT 112: Negative or not required by law. Electronically signed by: Marshal Xie M.D. 12/08/2022 10:27 AM
[2022-12-08 10:30] LABS: BUN Creatinine Ratio 25.4 (10-20); Calcium 8.1 mg/dl (8.6-10.3); Creatinine Clr Calc Pharmacy 96.3 ml/min; Est GFR (African American) 124.1 ml/min; Est GFR (Non-African American) 107.1 ml/min; Potassium 4.1 mmol/L (3.5-5.1)
[2022-12-08 10:52] LABS: Vitamin B12 968 pg/ml (180-914)
[2022-12-08] MEDS: NSS + 20MEQ KCL 20 MEQ/1,000 ML BAG IV SCH (11:05)
[2022-12-08] MEDS ORDERED: ALBUT/IPRATROP 3MG/0.5MG NEB 3 ML VIAL NEB PRN (12:18)
[2022-12-08] MEDS ORDERED: bisacodyL 10 MG SUPP PR PRN (12:23)
[2022-12-08 14:10] LABS: Adenovirus PCR Not Detected (NotDetected); Bordetella parapertussis PCR Not Detected (NotDetected); Bordetella pertussis PCR Not Detected (NotDetected); Chlamydia pneumoniae PCR Not Detected (NotDetected); Coronavirus 229E PCR Not Detected (NotDetected); Coronavirus CoV-2 (COVID19)PCR Not Detected (NotDetected); Coronavirus HKU1 PCR Not Detected (NotDetected); Coronavirus NL63 PCR Not Detected (NotDetected); Coronavirus OC43PCR Not Detected (NotDetected); Human Metapneumovirus PCR Not Detected (NotDetected); Influenza A PCR Not Detected (NotDetected); Influenza B PCR Not Detected (NotDetected); Mycoplasma pneumoniae PCR Not Detected (NotDetected); Parainfluenza Virus 1 PCR Not Detected (NotDetected); Parainfluenza Virus 2 PCR Not Detected (NotDetected); Parainfluenza Virus 3 PCR Not Detected (NotDetected); Parainfluenza Virus 4 PCR Not Detected (NotDetected); Respiratory Syncytial VirusPCR Not Detected (NotDetected); Rhinovirus/Enterovirus PCR Not Detected (NotDetected)
[2022-12-08] MEDS: POLYETHYLENE (MIRALAX) 17 GM PACK PO SCH (14:16)
[2022-12-08] MEDS: PANTOprazole 40 MG in SYRINGE 0 ML IV SCH (14:16)
[2022-12-08] MEDS: DIVALPROEX SODIUM SPRINKLE/DEL-REL 125 MG CAP PO SCH (21:46)
[2022-12-09] MEDS: AMPICILLIN/SULBACTAM SOD 3,000 MG in 0.9 % SODIUM CHLORIDE 100 ML IV SCH ×4 (03:07→21:17)
--- NOTE | 2022-12-09 07:35 | Hospitalist Progress Note ---
Date of Service December 09, 2022 Assessment & Plan (1) Nausea & vomiting: Plan: Nausea/vomiting Improved at time of bedside, concern for aspiration event and patient had coughed up a small green navas about 2 weeks prior, extensive aspiration history/food bolus s/p disimpaction by EGD w/ Dr Mccracken for grapes x 2 last year, was on hospice but apparently revoked to bring in for tx of aspiration pneumonia (CM to call caregiver/coordinator for more information as they were "only giving zofran") Speech consulted -->ordered pureed diet (per caregivers, had been giving Pureed diet since Tuesday of this past week) Contineu IV Keppra/Ativan for now-- depakote level low but no recent seizures and can take as tolerated and utilize prn ativan for any seizure activity Continue PPI IV daily for now CXR repeat w/ multifocal pnuemonia/opacities. Biofire repeated and negative Discussed w/ KHUSHI Garcia in charge of Mr Wang, at present time they would like to continue abx/treatment and do not feel withdrawing care at moment appropriate. Discussed backing to liquid diet, which we attempted this afternoon and patient w/ ongoing emesis x 2, backed down to NPO for now (had 3BM today, do not suspect retention causing emesis) Will avoid excess IVF at this time and monitor for overnight, given not overly dehydrated on exam for now and volume overload prior admit requiring IV lasix Patient has been out of the hospital for past 4-5 months when previously in a bout every month. Discussed PEG tube for artificial feeding and risks/worry about patient pulling this out/not tolerating tube feeding, and that they consistently report the carley Donny gets is from snacks/potato chips but haven't been allowing. Radha and supervisor pumping Hoa Shields available for discussion w/ Dr Napier tomorrow before 11 to determine best course for Mr Wang moving forward. (2) Aspiration pneumonia: Plan: Suspected, recurrent but pneumonitis vs pneumonia--> given reports of aspiration for green navas about 2 weeks ago-- of note, did have grape removed by Dr Mccracken 2nd to impaction/torturous esophagus speech consulted as above but known extensive aspiration/permissive --> pureed--> clear liquid --> now NPO as above Switched abx from Unasyn to Zosyn given worsening CXR but suspect 2nd to continued aspiration Maintain elevation HOB/aspiration precautions O2 as needed -- has remained on room air Duonebs prn Did discuss w/ caregivers, patient unable to tolerate meds like mucinex, unable to participate w/ incentive spirometer. could attempt vibration vest or other for possible mucus plugging but doubt patient would be able to tolerate and they agree. Could reach out to pulm for additional recs, but appears chronic issue at present and worsening, unlikely to benefit in way of comfort w/ PEG tube placement for feeding but will need continued discussions as above (3) Epilepsy: Plan: History of epilepsy, no recent seizures Depakote sprinkles resumed but still having issues w/ PO intake Continue IV Keppra/Ativan for now Maintain seizute precautions PRN ativan for seizures Valproic acid level low --> ?if from n/v and not getting pills. Messaged Dr Bhakta and will f/u tomorrow (4) Cerebral palsy: Plan: Cerebral palsy Baseline function, smiles laughs intermittently yells out, uses motorized wheelchair normally When feeling better, he likes to be in the wheelchair and roaming halls w/ aides Paroxysmal atrial tachycardia No longer on propranolol, heart rate is regular on admission Heart rate well controlled without arrhythmia previous admission DVT prophylaxis: Heparin twice daily, patient bedbound CODE STATUS DNR/DNI Admission and Anticipated Discharge Date Admission Date: December 07, 2022 Supervising Physician Co-Signing Physician Notes The patient was not seen by me. The chart was reviewed. Case discussed with MOLLY Morillo. Agree with assessment and plan Subjective Eval this morning, had some spit up after eating last evening. Per aide in room, thinks he worked himself up moving rooms as this happens at home sometimes. Pureed diet for breakfast and had episode of emesis. Appears comfortable but more sleepy, awoken easily by aide coming into room. No distress. Discussed imaging/labs/diet. They are inquiring full liquid diet -- will need to touch base w/ speech therapy. Planning to call KHUSHI Garcia, was to visit today but is not, to inquire about goals of care moving forward. She has to talk with her tax services manager for more clarification and will call me back. Physical Exam Physical Exam: General: awake in bed, leaning to the right as he usually does, no acute distress, nonverbal at baseline, chronically ill appearing Resp: no tachypnea/increased work of breathing, coarse breath sounds in the ba ses, but no overt wheezing, on room air CV: RRR, quiet HS, no m/r/g, trace pedal edema GI: _BS, soft/NT, no withdrawal/grimacing Extremities: Flexed posture,Muscle atrophy consistent with cerebral palsy. Results & Data Results & Data Vital Signs (Past 12 Hours) Vital Signs Temp Pulse Resp BP BP Pulse Ox O2 Del Method 12/09/22 07:31 36.6 C 71 18 107/63 98 Room Air 12/09/22 00:38 Room Air 12/08/22 23:03 36.6 C 88 18 103/62 96 Room Air Laboratory Results 12/08/22 12/08/22 12/08/22 Range/Units 11:50 08:54 08:54 WBC (4.8-10.8) K/ul RBC (4.70-6.10) M/uL Hgb (14.0-18.0) g/dl Hct (42.0-52.0) % MCV (80.0-100.0) fL MCH (25.0-34.0) pg MCHC (32.0-36.0) g/dL RDW Std Deviation (36.4-46.3) fL RDW Coeff of [place] (11.5-14.5) % Plt Count (130-400) K/uL MPV (9.4-12.4) fL Immature Gran % (Auto) % Neut % (Auto) % Lymph % (Auto) % [place] % (Auto) % Eos % (Auto) % Baso % (Auto) % Neut # (Auto) (1.40-6.50) K/uL Lymph # (Auto) (1.2-3.4) K/uL [place] # (Auto) (0.11-0.59) K/uL Eos # (Auto) (0-0.50) K/uL Baso # (Auto) (0-0.2) K/uL Immature Gran # (Auto) (0.01-0.20) K/uL Sodium (136-145) mmol/L Potassium (3.5-5.1) mmol/L Chloride (98-107) mmol/L Carbon Dioxide (21-32) mmol/L Anion Gap (3-11) BUN (6-23) mg/dl Creatinine (0.6-1.4) mg/dl Est Cr Clr Drug Dosing ml/min Est GFR ( Amer) ml/min Est GFR (Non-Af Amer) ml/min BUN/Creatinine Ratio (10-20) Glucose (70-99(Fasting)) mg/dl Calcium (8.6-10.3) mg/dl Magnesium (1.7-2.4) mg/dl Vitamin B12 968 H (180-914) pg/ml Folate > 22.30 (>5.38) ng/ml Valproic Acid (50-100) mcg/ml Levetiracetam Pending Adenovirus (PCR) Not Detected (NotDetected) B. pertussis DNA (PCR) Not Detected (NotDetected) B.parapertussis DNA PCR Not Detected (NotDetected) C. pneumoniae DNA (PCR) Not Detected (NotDetected) Coronavirus OC43 (PCR) Not Detected (NotDetected) Coronavirus HKU1 (PCR) Not Detected (NotDetected) Coronavirus 229E (PCR) Not Detected (NotDetected) SARS-CoV-2 (PCR) Not Detected (NotDetected) Coronavirus NL63 (PCR) Not Detected (NotDetected) Human Metapneumovir PCR Not Detected (NotDetected) Influenza Type A (PCR) Not Detected (NotDetected) Influenza Type B (PCR) Not Detected (NotDetected) M. pneumoniae (PCR) Not Detected (NotDetected) Parainfluenza 1 (PCR) Not Detected (NotDetected) Parainfluenza 2 (PCR) Not Detected (NotDetected) Parainfluenza 3 (PCR) Not Detected (NotDetected) Parainfluenza 4 (PCR) Not Detected (NotDetected) RSV (PCR) Not Detected (NotDetected) Entero/Rhino (PCR) Not Detected (NotDetected) 12/08/22 12/08/22 12/08/22 Range/Units 08:54 08:54 08:54 WBC 6.95 (4.8-10.8) K/ul RBC 2.96 L (4.70-6.10) M/uL Hgb 9.5 L (14.0-18.0) g/dl Hct 30.1 L (42.0-52.0) % MCV 101.7 H (80.0-100.0) fL MCH 32.1 (25.0-34.0) pg MCHC 31.6 L (32.0-36.0) g/dL RDW Std Deviation 50.8 H (36.4-46.3) fL RDW Coeff of [place] 13.6 (11.5-14.5) % Plt Count 324 (130-400) K/uL MPV 10.2 (9.4-12.4) fL Immature Gran % (Auto) 0.4 % Neut % (Auto) 66.1 % Lymph % (Auto) 21.4 % Stark % (Auto) 8.8 % Eos % (Auto) 3.0 % Baso % (Auto) 0.3 % Neut # (Auto) 4.59 (1.40-6.50) K/uL Lymph # (Auto) 1.49 (1.2-3.4) K/uL Stark # (Auto) 0.61 H (0.11-0.59) K/uL Eos # (Auto) 0.21 (0-0.50) K/uL Baso # (Auto) 0.02 (0-0.2) K/uL Immature Gran # (Auto) 0.03 (0.01-0.20) K/uL Sodium 143 (136-145) mmol/L Potassium 4.1 (3.5-5.1) mmol/L Chloride 111 H (98-107) mmol/L Carbon Dioxide 26 (21-32) mmol/L Anion Gap 6 (3-11) BUN 16 (6-23) mg/dl Creatinine 0.63 (0.6-1.4) mg/dl Est Cr Clr Drug Dosing 96.3 ml/min Est GFR ( Amer) 124.1 ml/min Est GFR (Non-Af Amer) 107.1 ml/min BUN/Creatinine Ratio 25.4 H (10-20) Glucose 79 (70-99(Fasting)) mg/dl Calcium 8.1 L (8.6-10.3) mg/dl Magnesium 2.0 (1.7-2.4) mg/dl Vitamin B12 (180-914) pg/ml Folate (>5.38) ng/ml Valproic Acid 32 L (50-100) mcg/ml Levetiracetam Adenovirus (PCR) (NotDetected) B. pertussis DNA (PCR) (NotDetected) B.parapertussis DNA PCR (NotDetected) C. pneumoniae DNA (PCR) (NotDetected) Coronavirus OC43 (PCR) (NotDetected) Coronavirus HKU1 (PCR) (NotDetected) Coronavirus 229E (PCR) (NotDetected) SARS-CoV-2 (PCR) (NotDetected) Coronavirus NL63 (PCR) (NotDetected) Human Metapneumovir PCR (NotDetected) Influenza Type A (PCR) (NotDetected) Influenza Type B (PCR) (NotDetected) M. pneumoniae (PCR) (NotDetected) Parainfluenza 1 (PCR) (NotDetected) Parainfluenza 2 (PCR) (NotDetected) Parainfluenza 3 (PCR) (NotDetected) Parainfluenza 4 (PCR) (NotDetected) RSV (PCR) (NotDetected) Entero/Rhino (PCR) (NotDetected) Diagnostic Findings Chest X-Ray 12/08/22 08:23 XR chest 1V portable CLINICAL HISTORY: f/u consolidation COMPARISON STUDY: Chest CT June 27, 2022. Chest radiograph December 07, 2022. FINDINGS: There is no pneumothorax. Small right pleural effusion is noted. A hiatal hernia is present. Cardiomediastinal silhouette is stable. Bibasilar opacities are greater on the right. There is associated interstitial thickening. The appearance of the chest is similar to prior chest radiograph. IMPRESSION: 1. No significant change in bibasilar airspace opacities, greater within the right lung. Associated interstitial thickening. The findings favor multifocal pneumonia or aspiration pneumonitis. 2. Small right pleural effusion. ACT 112: Negative or not required by law. Electronically signed by: Marshal Xie M.D. 12/08/2022 10:27 AM PG Care Time/CCT Total # of Minutes Spent Total Time Spent with Patient: Total time spent is greater than 50% in coordination of care (as documented) at patient's floor/unit and/or counseling patient: Prolonged Care Time Prolonged Care Time: Yes additional 60 minutes spent on additional phone calls to caregivers/Donny's RN Radha, coordinator and coordination with case management, additional discussion with palliative care provider to arrange for meeting tomorrow, and time spent at bedside above usual amount Coding Level of Care Code 82979 SUB INP/OBS CARE 3/50MIN (25 - SIGNIFICANT, SEPARATELY IDENTIFIABLE ) Diagnoses Nausea & vomiting R11.2 Vomiting type: unspecified Aspiration pneumonia J69.0 Epilepsy G40.909 Cerebral palsy G80.9 Additional Codes Prolonged Care Time - Prolonged Care Time: Yes ([id number]) (1) Nausea & vomiting Vomiting type: unspecified Qualified Code(s): R11.2 - Nausea with vomiting, unspecified
--- NOTE | 2022-12-09 08:53 | XRay Report ---
XR chest 1V portable CLINICAL HISTORY: follow up pna TECHNIQUE: Single frontal radiograph of the chest was obtained. Comparison: Comparison is made to chest radiograph 12/09/2019 FINDINGS: Exam is limited by patient positioning. The cardiomediastinal silhouette is stable. Bibasilar airspac e opacities are minimally more conspicuous than in the prior exam. There may be increased pulmonary v ascular congestion. No evidence of pleural effusion or pneumothorax. IMPRESSION: 1. Possibly increased mild pulmonary vascular congestion. 2. Stable to minimally increased multifocal airspace opacities. ACT 112: Negative or not required by law. Electronically signed by: Dylan Figueredo M.D. 12/09/2022 8:52 AM
[2022-12-09] MEDS: levETIRAcetam 1,500 MG in 0.9 % SODIUM CHLORIDE 100 ML IV SCH ×2 (09:24→20:51)
[2022-12-09] MEDS: HEPARIN SOD 5,000 UNIT/0.5 ML VIAL SQ SCH ×2 (09:25→20:50)
[2022-12-09] MEDS: POLYETHYLENE (MIRALAX) 17 GM PACK PO SCH (09:30)
[2022-12-09] MEDS: DIVALPROEX SODIUM SPRINKLE/DEL-REL 125 MG CAP PO SCH ×2 (09:31→20:51)
[2022-12-09] MEDS: LORazepam 2 MG/1 ML VIAL IV SCH ×2 (09:37→20:50)
[2022-12-09] MEDS: PANTOprazole 40 MG in SYRINGE 0 ML IV SCH (10:21)
[2022-12-09 11:00] LABS: Hematocrit (blood only) 34.4 % (42.0-52.0); Mean Corpuscular Hemoglobin 32.4 pg (25.0-34.0); Mean Corpuscular Volume 101.2 fL (80.0-100.0); Mean Platelet Volume 10.4 fL (9.4-12.4); Platelet Count 346 K/uL (130-400); RDW Coefficient of Variation 13.2 % (11.5-14.5); RDW Standard Deviation 49.3 fL (36.4-46.3); White Blood Count 7.22 K/ul (4.8-10.8)
[2022-12-09 11:08] LABS: Albumin Level 3.1 gm/dl (3.4-5.0); BUN Creatinine Ratio 21.8 (10-20); Bilirubin,Total 0.4 mg/dl (0.2-1.0); Creatinine Clr Calc Pharmacy 110.3 ml/min; Est GFR (African American) 131.3 ml/min; Est GFR (Non-African American) 113.3 ml/min; Magnesium 2.1 mg/dl (1.7-2.4); Potassium 4.1 mmol/L (3.5-5.1); Total Protein 6.1 gm/dl (6.0-8.3)
[2022-12-10] MEDS: AMPICILLIN/SULBACTAM SOD 3,000 MG in 0.9 % SODIUM CHLORIDE 100 ML IV SCH (03:27)
--- NOTE | 2022-12-10 07:33 | Hospitalist Progress Note ---
Date of Service December 10, 2022 Assessment & Plan (1) Nausea & vomiting: Plan: Nausea/vomiting Improved at time of bedside, concern for aspiration event and patient had coughed up a small green navas about 2 weeks prior, extensive aspiration history/food bolus s/p disimpaction by EGD w/ Dr Mccracken for grapes x 2 last year, was on hospice but apparently revoked to bring in for tx of aspiration pneumonia (CM to call caregiver/coordinator for more information as they were "only giving zofran"). Patient has been out of the hospital for past 4-5 months when previously in about every month. Speech consulted, attempted pureed diet, continued aspiration. Liquid diet trial w/ similar experience Continued IV keppra/ativan, attempted to resume PO depakote (level checked, low -- last admit I had him we switched to depakote sprinkles to take w/ applesauce) Continue PPI IV daily This appears to be a combination of structural issues (tortuous esophagus), lengthy discussion w/ Radha PURI and Hoa Shields about want to persue PEG tube/risks/etc, infection. Wishes for patient/fairness given his want to eat/etc and allow for permissive aspiration as previously discussed. Did switch to Zosyn abx, however do not suspect infectious pneumonia and more likely pneumonitis. Biofire negative Possible seizure activity lasting ~1 minute this morning (no IV site, was waiting for IV team, RN not notified by aide and had not gotten his AM m edications) Prolactin added stat, no significant elevation. Per discussion w/ Radha/Hoa Shields yesterday, not much seizure activity, however discussion w/ aide at bedside this morning appears patient does have these from time to time for 1-2 minutes over past couple months neuro consulted -- messaged day prior for low Depakote levels discussed w/ pharmacy, scheduling Depacon 375mg Q6H while inpatient, additional 500mg IV x 1 now given prior missed doses. Can consider Ativan SL scheduled if unable to tolerate the PO intake/pills. Neuro d/c EEG, no need reported Palliative meeting this AM w/ KHUSHI Garcia and Hoa Shields at skills -- see their note, extensive discussion about recurring problem, surgical intervention not in best interest of Donny, and goal for permissive aspiration w/ pureed diet. If unable to take larger pills/seizure meds at home, can consider scheduled SL ativan/hospice. CM following, looking into [facility] NPO overnight -- getting fluids w/ seizure medications, holding off maintaince fluids for now. Hopefully if no further seizure activity will attempt pureed diet tomorrow/discontinue Zosyn (2) Aspiration pneumonia: Plan: Suspected more aspiration pneumonitis from continued aspirations (green navas about 2 weeks ago), several emesis 12/09 and backed down to NPO but I do believe moving rooms/hospital setting also distressing for Raz and his n/v seems to occur despite scheduled zofran at times and wanted to continue eating. No abdominal pain Unasyn switched to Zosyn but plans to discontinue this Discussed unable to participate in way of any incentive spirometer/flutter valve, would not likely be able to stand something like vibration vest NPO for now, attempt pureed for tomorrow once getting anticonvulsants back on board Maintain aspiration precautions/HOB elevation O2 if needed but has never required PEG tube likely not to be beneficial for patient given his main carley in life, which we do want to respect, is eating and this does not prevent risk for aspiration either, and I doubt he would be able to tolerate tube feedings. (3) Epilepsy: Plan: History of epilepsy, no recent seizures per discussion 12/09 however does appear having small seizures over past several months Depakote level LOW on check amd depakote sprinkles resumed 12/09, but still having issues w/ PO intake and these are now on hold/NPO --> giving IV depacon as above, neurology on consult [facility] level pending Maintain seizure precautions, no need for EEG per Dr Bhakta as would not change treatment PRN ativan available for seizures -- if issues w/ IV site will need to make SL or OK available (4) Cerebral palsy: Plan: Cerebral palsy Baseline function, smiles laughs intermittently yells out, uses motorized wheelchair normally When feeling better, he likes to be in the wheelchair and roaming halls w/ aides Paroxysmal atrial tachycardia No longer on propranolol, heart rate is regular on admission Heart rate well controlled without arrhythmia previous admission DVT prophylaxis: Heparin twice daily, patient bedbound CODE STATUS DNR/DNI Admission and Anticipated Discharge Date Admission Date: December 07, 2022 Supervising Physician Co-Signing Physician Notes The patient was not seen by me. The chart was reviewed. Case discussed with MOLLY Morillo. Agree with assessment and plan Subjective eval this morning, awake and tracking with eyes. Does not appear to be in distress, but aide at bedside reports possible seizure about an hour ago around 9am, lasting about a minute. Redness/flushing to around chest/back at that time/teeth clenching. RN not aware/not notified -- asked about prn Ativan. She was waiting new IV site for patient -- calling IV team stat. Neurology consulted, recs for IV Depacon. Palliative meeting w/ Radha/Hoa Shields this morning in place to determine dispo planning and interventions wanted in the future. Physical Exam Physical Exam: General: awake in bed, leaning to the right as he usually does, no acute distress, nonverbal at baseline, chronically ill appearing Resp: no tachypnea/increased work of breathing, coarse breath sounds in the bases, but no overt wheezing, on room air CV: RRR, quiet HS, no m/r/g, trace pedal edema GI:+_BS, soft/NT, no withdrawal/grimacing Extremities: Flexed posture,Muscle atrophy consistent with cerebral palsy. Results & Data Results & Data Vital Signs (Past 12 Hours) Vital Signs Temp Pulse Resp BP Pulse Ox O2 Del Method 12/10/22 07:21 36.8 C 69 18 104/69 12/09/22 21:41 36.4 C L 80 14 109/67 94 Room Air 12/09/22 21:24 Room Air Laboratory Results 12/10/22 12/10/22 12/10/22 Range/Units 07:58 07:58 07:58 WBC (4.8-10.8) K/ul RBC (4.70-6.10) M/uL Hgb (14.0-18.0) g/dl Hct (42.0-52.0) % MCV (80.0-100.0) fL MCH (25.0-34.0) pg MCHC (32.0-36.0) g/dL RDW Std Deviation (36.4-46.3) fL RDW Coeff of [place]og[place] (11.5-14.5) % Plt Count (130-400) K/uL MPV (9.4-12.4) fL Immature Gran % (Auto) % Neut % (Auto) % Lymph % (Auto) % [place] % (Auto) % Eos % (Auto) % Baso % (Auto) % Neut # (Auto) (1.40-6.50) K/uL Lymph # (Auto) (1.2-3.4) K/uL [place] # (Auto) (0.11-0.59) K/uL Eos # (Auto) (0-0.50) K/uL Baso # (Auto) (0-0.2) K/uL Immature Gran # (Auto) (0.01-0.20) K/uL Sodium 140 (136-145) mmol/L Potassium 3.7 (3.5-5.1) mmol/L Chloride 108 H (98-107) mmol/L Carbon Dioxide 27 (21-32) mmol/L Anion Gap 5 (3-11) BUN 9 (6-23) mg/dl Creatinine 0.45 L (0.6-1.4) mg/dl Est Cr Clr Drug Dosing 134.8 ml/min Est GFR ( Amer) 142.6 ml/min Est GFR (Non-Af Amer) 123.0 ml/min BUN/Creatinine Ratio 20.0 (10-20) Glucose 90 (70-99(Fasting)) mg/dl Calcium 8.4 L (8.6-10.3) mg/dl Magnesium 1.9 (1.7-2.4) mg/dl Total Bilirubin 0.4 (0.2-1.0) mg/dl AST 26 (13-39) U/L ALT 22 (7-52) U/L Alkaline Phosphatase 63 (34-104) U/L Total Protein 5.9 L (6.0-8.3) gm/dl Albumin 3.1 L (3.4-5.0) gm/dl Globulin 2.8 (2.5-4.0) gm/dl Albumin/Globulin Ratio 1.1 (0.9-2) Procalcitonin 0.09 (0-0.5) ng/ml Prolactin 5.95 ng/ml 12/10/22 Range/Units 07:58 WBC 7.70 (4.8-10.8) K/ul RBC 3.14 L (4.70-6.10) M/uL Hgb 10.2 L (14.0-18.0) g/dl Hct 31.2 L (42.0-52.0) % MCV 99.4 (80.0-100.0) fL MCH 32.5 (25.0-34.0) pg MCHC 32.7 (32.0-36.0) g/dL RDW Std Deviation 48.1 H (36.4-46.3) fL RDW Coeff of [place] 13.2 (11.5-14.5) % Plt Count 387 (130-400) K/uL MPV 10.0 (9.4-12.4) fL Immature Gran % (Auto) 0.4 % Neut % (Auto) 64.0 % Lymph % (Auto) 24.4 % [place] % (Auto) 7.8 % Eos % (Auto) 3.1 % Baso % (Auto) 0.3 % Neut # (Auto) 4.93 (1.40-6.50) K/uL Lymph # (Auto) 1.88 (1.2-3.4) K/uL [place] # (Auto) 0.60 H (0.11-0.59) K/uL Eos # (Auto) 0.24 (0-0.50) K/uL Baso # (Auto) 0.02 (0-0.2) K/uL Immature Gran # (Auto) 0.03 (0.01-0.20) K/uL Sodium (136-145) mmol/L Potassium (3.5-5.1) mmol/L Chloride (98-107) mmol/L Carbon Dioxide (21-32) mmol/L Anion Gap (3-11) BUN (6-23) mg/dl Creatinine (0.6-1.4) mg/dl Est Cr Clr Drug Dosing ml/min Est GFR ( Amer) ml/min Est GFR (Non-Af Amer) ml/min BUN/Creatinine Ratio (10-20) Glucose (70-99(Fasting)) mg/dl Calcium (8.6-10.3) mg/dl Magnesium (1.7-2.4) mg/dl Total Bilirubin (0.2-1.0) mg/dl AST (13-39) U/L ALT (7-52) U/L Alkaline Phosphatase (34-104) U/L Total Protein (6.0-8.3) gm/dl Albumin (3.4-5.0) gm/dl Globulin (2.5-4.0) gm/dl Albumin/Globulin Ratio (0.9-2) Procalcitonin (0-0.5) ng/ml Prolactin ng/ml PG Care Time/CCT Total # of Minutes Spent Total Time Spent with Patient: Total time spent is greater than 50% in coordination of care (as documented) at patient's floor/unit and/or counseling patient: Coding Level of Care Code 41170 SUB INP/OBS CARE 3/50MIN Diagnoses Nausea & vomiting R11.2 Vomiting type: unspecified Aspiration pneumonia J69.0 Epilepsy G40.909 Cerebral palsy G80.9 (1) Nausea & vomiting Vomiting type: unspecified Qualified Code(s): R11.2 - Nausea with vomiting, unspecified
[2022-12-10] MEDS: POLYETHYLENE (MIRALAX) 17 GM PACK PO SCH (08:17)
[2022-12-10 08:25] LABS: Basophils # (auto) 0.02 K/uL (0-0.2); Basophils % (auto) 0.3 %; Eosinophils # (auto) 0.24 K/uL (0-0.50); Eosinophils % (auto) 3.1 %; Hematocrit (blood only) 31.2 % (42.0-52.0); Hemoglobin 10.2 g/dl (14.0-18.0); Immature Granulocytes # (auto) 0.03 K/uL (0.01-0.20); Immature Granulocytes % (auto) 0.4 %; Lymphocytes # (auto) 1.88 K/uL (1.2-3.4); Lymphocytes % (auto) 24.4 %; Mean Corpuscular Hemoglobin 32.5 pg (25.0-34.0); Mean Corpuscular Hgb Conc 32.7 g/dL (32.0-36.0); Mean Corpuscular Volume 99.4 fL (80.0-100.0); Monocytes % (auto) 7.8 %; Neutrophils # (auto) 4.93 K/uL (1.40-6.50); Platelet Count 387 K/uL (130-400); RDW Coefficient of Variation 13.2 % (11.5-14.5); RDW Standard Deviation 48.1 fL (36.4-46.3); Red Blood Count 3.14 M/uL (4.70-6.10)
[2022-12-10] MEDS: PIPERACILLIN/TAZOBACTAM 3.375 GM (over 30 mins) IV ONE ×2 (08:33→10:55)
[2022-12-10 08:35] LABS: Albumin Globulin Ratio 1.1 (0.9-2); Albumin Level 3.1 gm/dl (3.4-5.0); Bilirubin,Total 0.4 mg/dl (0.2-1.0); Calcium 8.4 mg/dl (8.6-10.3); Creatinine Clr Calc Pharmacy 134.8 ml/min; Est GFR (African American) 142.6 ml/min; Globulin 2.8 gm/dl (2.5-4.0); Magnesium 1.9 mg/dl (1.7-2.4); Potassium 3.7 mmol/L (3.5-5.1); Total Protein 5.9 gm/dl (6.0-8.3)
--- NOTE | 2022-12-10 09:51 | Palliative Care Consultation ---
Date of Consultation December 10, 2022 Assessment & Plan (1) Aspiration into airway: With tortuous esophagus, hiatal hernia and oropharyngeal dysphagia Picture more consistent with pneumonitis that pneumonia at this time. This has been and will continue to be a recurring problem for him. Surgical intervention or enteral feeding would not be in his best interest at this time. Goal would be careful feeding with pureed diet and permissive aspiration. (2) Nausea & vomiting: Appears more structural than physiological. Doubt that routine antiemetics would be effective. He has been on routine zofran with no benefit prior to admission Appetite has remained good despite frequent emesis. May also be related to seizure activity Vomiting type: unspecified Qualified Code(s): R11.2 - Nausea with vomiting, unspecified (3) Seizure: Management per neurology and hospitalist He has been NPO, requiring IV medication which would not be feasible outside hospital setting With permissive aspiration, medications could be administered orally Seizure prophylaxis with routine lorazepam dosing would be option if unable to tolerate po medications. (4) Palliative care encounter: I had a lengthy discussion with Radha Fletcher at [facility] regarding goals of care for Donny. He has had multiple hospitalizations for recurrent aspiration. Admission to hospital with change in routine and caregivers is disruptive and likely distressing to him. Unfortunately, his prognosis is poor with ongoing aspiration with or without hospitalization. Without significant benefit of hospitalization, it would be reasonable for him to remain in his home with his caregivers and the support of hospice to manage his symptoms. The other alternative would be to continue with NPO which would be unfair to Donny who enjoys eating, and would lead to his dying time. With careful feedings and precautions, as well as pureed diet, risk of aspiration can be reduced but not eliminated. Even if he had enteral feeding tube, risk of aspiration would still be present. Hospital team and Skills team are in agreement that allowing Donny to eat for comfort and accepting risk of aspiration would be the best plan for him at this time. If he has aspiration event, staff at [facility] can notify hospice to assist with supportive care and symptom management. Ongoing support from hospice will help staff to manage his care as safely as possible and focus on comfort and symptom management if aspiration occurs. Given the fact that aspiration often leads to inflammatory process rather than actual infection and that antibiotics present risks with side effects, I do not think that use of antibiotics would be beneficial for Donny on hospice. Discussed with hospitalist, Nubia Naranjo History of Present Illness Reason for Consultation: goals of care Requesting Physician: BEBA Morillo Attending Physician: Mg Concepcion MD History of Present Illness 62 yo gentleman with cerebral palsy, microcephaly and spinal bifida who resides at [facility]. He has a history of seizure disorder, tortuous esophagus with recurrent aspiration pneumonia, GERD and PAD. He has had multiple hospitalizations for aspiration pneumonia/pneumonitis, most recently in July 2022. He had been on hospice at [facility] prior to this admission. He had episode of emesis with presumed aspiration prior to admission. His guardian at that time opted to revoke hospice and have him transferred to [facility] for antibiotic therapy. He did not have leukocytosis but chest xray showed pulmonary edema and mild bibasilar consolidation. He is currently on zosyn and O2 sat is 94% on room air. He does have a moist cough at times. He is nonverbal but appears comfortable. Caregiver at bedside indicates that he had seizure like activity earlier this morning. Allergies Allergy/AdvReac Type Severity Reaction Status Date / Time metoclopramide Allergy Intermediate Agitation Verified 12/07/22 18:52 Home Medications Medication Instructions Recorded Confirmed Type carbamide peroxide 6.5 % ear drops 2 drp OTB 3XWK 10/19/18 12/07/22 History (Debrox) loperamide 2 mg capsule (Imodium 2 mg PO UD PRN Diarrhea 06/03/19 12/07/22 History A-D) Wheelchair (Manual) (Manual #1 ea 11/07/19 11/05/22 Rx Wheelchair) diaper,brief,adult,disposable #100 ea 03/19/20 11/05/22 Rx (Briefs Medium) diazepam 5 mg-7.5 mg-10 mg rectal 7.5 mg [place] UD PRN seizure activity 10/05/21 12/07/22 Rx kit (Diastat AcuDial) #1 ea triamcinolone acetonide 0.1 % 1 applic topical BID PRN rash #30 11/03/21 12/07/22 Rx topical cream grams emollient combination no.92 1 applic topical BID Dry skin #710 12/15/21 12/07/22 Rx (Lubriderm Daily Moisture lotion) mL white petrolatum 41 % topical 1 applic topical HS 04/12/22 12/07/22 History ointment (Aquaphor Healing) Hospital Bed Homecare (Hospital #1 ea 05/11/22 11/05/22 Rx Bed) divalproex 125 mg capsule,delayed 750 mg PO BID 30 days #360 caps 06/02/22 12/07/22 Rx release sprinkle docusate sodium 100 mg capsule 100 mg PO DAILY PRN constipation 07/02/22 12/07/22 Rx (Stool Softener) #90 caps ipratropium 0.5 mg-albuterol 3 mg 3 ml NEB Q6H PRN 07/13/22 12/07/22 Rx (2.5 mg base)/3 mL nebulization cough/wheeze/shortness of breath soln #1 box morphine concentrate 100 mg/5 mL 5 mg (0.25 mL) PO Q6H PRN pain or 07/13/22 12/07/22 Rx (20 mg/mL) oral solution air hunger #15 mL nebulizers #1 ea 07/13/22 11/05/22 Rx levetiracetam 100 mg/mL oral 1,500 mg (15 mL) PO BID 3 days #90 07/16/22 12/07/22 Rx solution (Keppra) mL CHAP STICK #1 ea 07/20/22 11/05/22 Rx sertraline 50 mg tablet 50 mg PO QAM #90 tabs 07/22/22 12/07/22 Rx ketoconazole 2 % shampoo 1 applic topical 2XWK #120 mL 08/13/22 12/07/22 Rx acetaminophen 325 mg tablet 650 mg PO Q6H PRN Fever Or Pain 09/23/22 12/07/22 Rx #30 tabs aluminum-mag hydroxide-simethicone 30 ml PO Q4H PRN UPSET 09/23/22 12/07/22 Rx 400 mg-400 mg-40 mg/5 mL oral susp STOMACH/VOMITING #355 mL (Antacid-Simethicone) neomycin-bacitracn Zn-polymyx 3.5 1 applic topical BID PRN abrasions 09/23/22 12/07/22 Rx mg-400 unit-5,000 unit/gram top #28.4 grams oint (Triple Antibiotic) lorazepam 0.5 mg tablet 0.5 mg PO .COMPLEX #60 tabs 10/20/22 12/07/22 Rx pantoprazole 40 mg tablet,delayed 40 mg PO DAILY #90 tabs 10/22/22 12/07/22 Rx release (Protonix) Wheelchair (Manual) (Manual #1 ea 10/26/22 11/05/22 Rx Wheelchair) clindamycin phosphate 1 % topical 1 applic topical DAILY #60 ea 11/05/22 12/07/22 Rx swab sodium chloride-aloe vera nasal 1 applic topical BID #14.1 grams 11/08/22 12/07/22 Rx gel ([place] Saline nasal gel) polyethylene glycol 3350 17 17 g PO .COMPLEX #765 grams 11/30/22 12/07/22 Rx gram/dose oral powder loratadine 10 mg tablet (Claritin) 10 mg PO DAILY allergies #90 tabs 12/06/22 12/07/22 Rx acetaminophen 650 mg rectal 650 mg OK Q4H PRN PAIN/FEVER 12/07/22 12/07/22 History suppository calcium carbonate 500 mg-vitamin 1 tab PO DAILY 12/07/22 12/07/22 History D3 5 mcg (200 unit) tablet (Oyster Shell Calcium-Vitamin D3) clotrimazole 1 % topical cream 1 applic topical BID PRN Rash 12/07/22 12/07/22 History food supplemt, lactose-reduced 1 ea PO TIDM 12/07/22 12/07/22 History haloperidol lactate 2 mg/mL oral 1 mg PO Q4H PRN 12/07/22 12/07/22 History concentrate NAUSEA/VOMITING/ANXIETY hyoscyamine sulfate 0.125 mg 0.125 mg PO Q4H PRN TERMINAL 12/07/22 12/07/22 History sublingual tablet SECRETIONS lorazepam 1 mg tablet 0.5 mg PO Q4H PRN 12/07/22 12/07/22 History RESTLESSNESS/INSOMNIA lorazepam 1 mg tablet 2 mg sublingual .Q15MIN PRN 12/07/22 12/07/22 History Seizure Activity ondansetron 4 mg disintegrating 4 - 6 mg PO Q6H PRN nausea and 12/07/22 12/07/22 History tablet vomiting sodium chloride 0.65 % nasal spray 1 spray intranasal TID 12/07/22 12/07/22 History aerosol (Saline Nasal) Patient History Medical History Allergic rhinitis Alternating exotropia Anemia Aphasia Atrial tachycardia Bladder carcinoma s/p TURBT 10/2021 Cataracts, both eyes Cerebral palsy Chronic constipation Chronic periodontitis Dermatitis Epilepsy GERD (gastroesophageal reflux disease) History of prematurity Hyperlipidemia Microcephaly Mood disorder PAD (peripheral artery disease) Paraplegia Paroxysmal atrial tachycardia Ptosis, left eyelid Scoliosis Severe intellectual disabilities Spina bifida Surgical History H/O transurethral destruction of bladder lesion 12/2021 History of removal of neck cyst Family History Other Family history non-contributory Social History Smoking Status: Never smoker Second Hand Exposure: No; Hx Alcohol Use: No Hx Substance Use: No Preferred Language: Cook Islander Communication Ability: Unable Communication Ability Comment: Pt is non verbal Visual 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 Limited Director Asset Required: No Beliefs That Will Affect Care: None marital status: Single Current Living Situation: Shelter Current Living Situation Comment: skills facility current occupational status: disabled Feels Safe at Home: Yes caffeine: Yes Dental Care, Regularly: Yes Assistive Devices: Wheelchair Review of Systems Review of Systems: Unobtainable due to cognitive status Physical Exam Constitutional: no acute distress Respiratory: normal respiratory effort; no labored breathing Gastrointestinal (Abdomen): soft, nontender Musculoskeletal: flexion contractures Skin: warm and dry Neurologic: Speech / Cognition: normal cognition nonverbal Results & Data Vital Signs (Past 12 Hours) Vital Signs Temp Pulse Resp BP O2 Del Method 12/10/22 07:53 Room Air 12/10/22 07:21 98.2 F 69 18 104/69 PG Care Time/CCT Total # of Minutes Spent Total Time Spent: 118 Total Time Spent with Patient: Total time spent is greater than 50% in coordination of care (as documented) at patient's floor/unit and/or counseling patient: goals of care, hospice, symptom management, prognosis, family(staff) education and support, coordination of care Coding Level of Care Code 85933 INT INP/OBS CARE 3/75MIN Diagnoses Aspiration into airway T17.908A Nausea & vomiting R11.2 Vomiting type: unspecified Seizure R56.9 Palliative care encounter Z51.5
[2022-12-10] MEDS: HEPARIN SOD 5,000 UNIT/0.5 ML VIAL SQ SCH ×2 (09:57→20:07)
[2022-12-10] MEDS: DIVALPROEX SODIUM SPRINKLE/DEL-REL 125 MG CAP PO SCH (09:58)
[2022-12-10] MEDS: levETIRAcetam 1,500 MG in 0.9 % SODIUM CHLORIDE 100 ML IV SCH ×2 (10:30→20:07)
[2022-12-10] MEDS: LORazepam 2 MG/1 ML VIAL IV SCH ×2 (10:53→20:51)
--- NOTE | 2022-12-10 11:25 | Neurology Consultation ---
Date of Consultation December 10, 2022 Assessment & Plan (1) Epilepsy: (2) Cerebral palsy: Plan 62-year-old male with profound intellectual disability, cerebral palsy, refractory epilepsy. He continues to experience 1 or 2 breakthrough seizures per month and spite of treatment. His episodes are typically brief and characterized by vocalization, generalized stiffening, followed by apparent lethargy, exhaustion. He had a brief typical spell earlier this morning, but occurring in the context of a 1 week history of nausea and vomiting and low valproic acid level. At this point I would give patient's anticonvulsant medications as IV. Keppra can be continued at 1500 mg IV every 12 hours. Valproate can be given as an IV as well. Agree with current dosing of valproate 375 mg IV every 6 hours. However, because the level was low, it would not be unreasonable to give an extra 500 mg IV x1. I see no reason for an EEG at this time. This test would not affect his management or alter his diagnosis. Would check a follow-up valproic acid level with a.m. labs. Discussed with Nubia Naranjo PA-C, hospitalist physician group. History of Present Illness Reason for Consultation: Seizure activity, low valproic acid level, nausea vomiting Requesting Physician: The patient is a 62-year-old male with a history of refractory epilepsy, cerebral palsy, intellectual disability, microcephaly, last seen in our outpatient neurology clinic July 27, 2022. He has been on Keppra and Depakote for his seizures. He has been on Tegretol and topiramate previously. He also has a prescription for Diastat for seizures lasting greater than 5 minutes although has not required this medication. He has been on palliative care, has home health aides, requires 24/7 support. I did not make any changes to his medication regimen at his last appointment but did request up-to-date anticonvulsant drug levels. In spite of treatment with multiple anticonvulsants, patient continues to experience occasional seizures, typically less than 1 to 2 minutes, he will often vocalize at seizure onset, body will stiffen, there will be associated staring. Episodes followed by exhaustion. Episodes seem to occur a few times per month. He had experienced less than 10 seizures over the preceding 6 months, since his last assessment in our office. The patient presented to the emergency department December 07, 2022 for intermittent vomiting over the previous week. He apparently had one of his typical brief seizure-like episodes earlier this morning witnessed by one of his caregivers who is at bedside. The episode started with vocalization and was followed by stiffening and blank stare, less than 1 minute. A valproic acid level was drawn on December 08 and was 32, below the typical therapeutic range which is between 50 and 100 mcg/mL. Previous valproic acid levels have been within typical therapeutic range. A Keppra level is pending although a previous Keppra level f 2020 was within typical therapeutic range. The patient has profound intellectual disability and he is unable to provide any details regarding his present illness. Details were obtained from the medical record as well as patient's caregiver and nurse at bedside this morning. Case was also discussed with Nubia Naranjo [facility]. Attending Physician: Mg Concepcion MD Allergies Allergy/AdvReac Type Severity Reaction Status Date / Time metoclopramide Allergy Intermediate Agitation Verified 12/07/22 18:52 Home Medications Medication Instructions Recorded Confirmed Type carbamide peroxide 6.5 % ear drops 2 drp OTB 3XWK 10/19/18 12/07/22 History (Debrox) loperamide 2 mg capsule (Imodium 2 mg PO UD PRN Diarrhea 06/03/19 12/07/22 History A-D) Wheelchair (Manual) (Manual #1 ea 11/07/19 11/05/22 Rx Wheelchair) diaper,brief,adult,disposable #100 ea 03/19/20 11/05/22 Rx (Briefs Medium) diazepam 5 mg-7.5 mg-10 mg rectal 7.5 mg [place] UD PRN seizure activity 10/05/21 12/07/22 Rx kit (Diastat AcuDial) #1 ea triamcinolone acetonide 0.1 % 1 applic topical BID PRN rash #30 11/03/21 12/07/22 Rx topical cream grams emollient combination no.92 1 applic topical BID Dry skin #710 12/15/21 12/07/22 Rx (Lubriderm Daily Moisture lotion) mL white petrolatum 41 % topical 1 applic topical HS 04/12/22 12/07/22 History ointment (Aquaphor Healing) Hospital Bed Homecare (Hospital #1 ea 05/11/22 11/05/22 Rx Bed) divalproex 125 mg capsule,delayed 750 mg PO BID 30 days #360 caps 06/02/22 12/07/22 Rx release sprinkle docusate sodium 100 mg capsule 100 mg PO DAILY PRN constipation 07/02/22 12/07/22 Rx (Stool Softener) #90 caps ipratropium 0.5 mg-albuterol 3 mg 3 ml NEB Q6H PRN 07/13/22 12/07/22 Rx (2.5 mg base)/3 mL nebulization cough/wheeze/shortness of breath soln #1 box morphine concentrate 100 mg/5 mL 5 mg (0.25 mL) PO Q6H PRN pain or 07/13/22 12/07/22 Rx (20 mg/mL) oral solution air hunger #15 mL nebulizers #1 ea 07/13/22 11/05/22 Rx levetiracetam 100 mg/mL oral 1,500 mg (15 mL) PO BID 3 days #90 07/16/22 12/07/22 Rx solution (Keppra) mL CHAP STICK #1 ea 07/20/22 11/05/22 Rx sertraline 50 mg tablet 50 mg PO QAM #90 tabs 07/22/22 12/07/22 Rx ketoconazole 2 % shampoo 1 applic topical 2XWK #120 mL 08/13/22 12/07/22 Rx acetaminophen 325 mg tablet 650 mg PO Q6H PRN Fever Or Pain 09/23/22 12/07/22 Rx #30 tabs aluminum-mag hydroxide-simethicone 30 ml PO Q4H PRN UPSET 09/23/22 12/07/22 Rx 400 mg-400 mg-40 mg/5 mL oral susp STOMACH/VOMITING #355 mL (Antacid-Simethicone) neomycin-bacitracn Zn-polymyx 3.5 1 applic topical BID PRN abrasions 09/23/22 12/07/22 Rx mg-400 unit-5,000 unit/gram top #28.4 grams oint (Triple Antibiotic) lorazepam 0.5 mg tablet 0.5 mg PO .COMPLEX #60 tabs 10/20/22 12/07/22 Rx pantoprazole 40 mg tablet,delayed 40 mg PO DAILY #90 tabs 10/22/22 12/07/22 Rx release (Protonix) Wheelchair (Manual) (Manual #1 ea 10/26/22 11/05/22 Rx Wheelchair) clindamycin phosphate 1 % topical 1 applic topical DAILY #60 ea 11/05/22 12/07/22 Rx swab sodium chloride-aloe vera nasal 1 applic topical BID #14.1 grams 11/08/22 12/07/22 Rx gel ([place] Saline nasal gel) polyethylene glycol 3350 17 17 g PO .COMPLEX #765 grams 11/30/22 12/07/22 Rx gram/dose oral powder loratadine 10 mg tablet (Claritin) 10 mg PO DAILY allergies #90 tabs 12/06/22 12/07/22 Rx acetaminophen 650 mg rectal 650 mg [place] Q4H PRN PAIN/FEVER 12/07/22 12/07/22 History suppository calcium carbonate 500 mg-vitamin 1 tab PO DAILY 12/07/22 12/07/22 History D3 5 mcg (200 unit) tablet ([place]yster Shell Calcium-Vitamin D3) clotrimazole 1 % topical cream 1 applic topical BID PRN Rash 12/07/22 12/07/22 History food supplemt, lactose-reduced 1 ea PO TIDM 12/07/22 12/07/22 History haloperidol lactate 2 mg/mL oral 1 mg PO Q4H PRN 12/07/22 12/07/22 History concentrate NAUSEA/VOMITING/ANXIETY hyoscyamine sulfate 0.125 mg 0.125 mg PO Q4H PRN TERMINAL 12/07/22 12/07/22 History sublingual tablet SECRETIONS lorazepam 1 mg tablet 0.5 mg PO Q4H PRN 12/07/22 12/07/22 History RESTLESSNESS/INSOMNIA lorazepam 1 mg tablet 2 mg sublingual .Q15MIN PRN 12/07/22 12/07/22 History Seizure Activity ondansetron 4 mg disintegrating 4 - 6 mg PO Q6H PRN nausea and 12/07/22 12/07/22 History tablet vomiting sodium chloride 0.65 % nasal spray 1 spray intranasal TID 12/07/22 12/07/22 History aerosol (Saline Nasal) Patient History Medical History Allergic rhinitis Alternating exotropia Anemia Aphasia Atrial tachycardia Bladder carcinoma s/p TURBT 10/2021 Cataracts, both eyes Cerebral palsy Chronic constipation Chronic periodontitis Dermatitis Epilepsy GERD (gastroesophageal reflux disease) History of prematurity Hyperlipidemia Microcephaly Mood disorder PAD (peripheral artery disease) Paraplegia Paroxysmal atrial tachycardia Ptosis, left eyelid Scoliosis Severe intellectual disabilities Spina bifida Surgical History H/O transurethral destruction of bladder lesion 12/2021 History of removal of neck cyst Family History Other Family history non-contributory Social History Smoking Status: Never smoker Second Hand Exposure: No; Hx Alcohol Use: No Hx Substance Use: No Preferred Language: Occitan Communication Ability: Unable Communication Ability Comment: Pt is non verbal Visual 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 Limited Dough Panner Required: No Beliefs That Will Affect Care: None marital status: Single Current Living Situation: Residential Current Living Situation Comment: skills facility current occupational status: disabled Feels Safe at Home: Yes caffeine: Yes Dental Care, Regularly: Yes Assistive Devices: Wheelchair Review of Systems Review of Systems: Unobtainable due to cognitive status Exam (Neuro) Constitutional: + behavioral limitations and + physical limitations Eyes: PERRL; + EOM not intact Neurologic: Cognitive Function: Other (Profound intellectual disability) Attention: negative Span Intact Speech Fluency: Other (Nonverbal) Motor Tone: Generalized Hypertonicity Muscle Bulk/Involuntary Movements: No Involuntary Movements Details: Limited examination due to poor patient cooperation in the context of severe intellectual disability. Nonverbal, occasionally grunts and moans, patient is awake and alert but inattentive. Appears to exhibit bilateral strabismus. Tone is generally increased. Does not answer questions or follow commands. Patient is easily agitated. No gross localizing or lateralizing signs on examination. Results & Data Vital Signs (Past 12 Hours) Vital Signs Temp Pulse Resp BP O2 Del Method 12/10/22 07:53 Room Air 12/10/22 07:21 36.8 C 69 18 104/69 Laboratory Results WBC 7.70, hemoglobin 10.2, hematocrit 31.2, platelet count 387, sodium 140, potassium 3.7, BUN 9, creatinine 0.45, glucose 90, calcium 8.4, magnesium 1.9, AST 26, ALT 22, prolactin 5.95 Diagnostic Findings Chest x-ray completed yesterday revealed stable to minimally increased multifocal airspace opacities and mild pulmonary vascular congestion. CT of the abdomen and pelvis completed December 07 revealed changes potentially consistent with pneumonia versus aspiration pneumonitis. Last CT of the head done March 25, 2020 in the context of a fall was negative for acute abnormality. PG Care Time/CCT Total # of Minutes Spent Total Time Spent with Patient: Total time spent is greater than 50% in coordination of care (as documented) at patient's floor/unit and/or counseling patient: 80 minutes Coding Level of Care Code 01070 INT INP/OBS CARE 3/75MIN Diagnoses Epilepsy G40.909 Cerebral palsy G80.9
[2022-12-10] MEDS: PANTOprazole 40 MG in SYRINGE 0 ML IV SCH (11:30)
[2022-12-10] MEDS: VALPROATE SOD 375 MG in DEXTROSE 5% 50 ML IV SCH ×2 (12:12→18:22)
[2022-12-10] MEDS ORDERED: VALPROATE SOD 500 MG in DEXTROSE 5% 50 ML IV ONE (12:30)
[2022-12-10] MEDS: PIPERACILLIN/TAZOBACTAM 3.375 GM in DEXTROSE 5% 100 ML IV SCH ×2 (14:21→20:56)
[2022-12-10] MEDS: BUDESONIDE 0.5 MG/2 ML VIAL (PULMICORT) NEB SCH (19:55)
[2022-12-11] MEDS: VALPROATE SOD 375 MG in DEXTROSE 5% 50 ML IV SCH ×5 (01:12→23:02)
[2022-12-11] MEDS: PIPERACILLIN/TAZOBACTAM 3.375 GM in DEXTROSE 5% 100 ML IV SCH (05:51)
[2022-12-11 06:23] LABS: Hematocrit (blood only) 30.1 % (42.0-52.0); Mean Corpuscular Hemoglobin 31.5 pg (25.0-34.0); Mean Corpuscular Hgb Conc 33.2 g/dL (32.0-36.0); Mean Platelet Volume 10.1 fL (9.4-12.4); Platelet Count 390 K/uL (130-400); RDW Standard Deviation 45.1 fL (36.4-46.3); Red Blood Count 3.17 M/uL (4.70-6.10); White Blood Count 7.74 K/ul (4.8-10.8)
[2022-12-11 06:33] LABS: BUN Creatinine Ratio 10.2 (10-20); Creatinine Clr Calc Pharmacy 102.8 ml/min; Est GFR (African American) 127.5 ml/min; Potassium 3.9 mmol/L (3.5-5.1)
[2022-12-11] MEDS: BUDESONIDE 0.5 MG/2 ML VIAL (PULMICORT) NEB SCH ×2 (07:13→19:38)
[2022-12-11] MEDS: POLYETHYLENE (MIRALAX) 17 GM PACK PO SCH (07:21)
--- NOTE | 2022-12-11 08:23 | Hospitalist Progress Note ---
Date of Service December 11, 2022 Assessment & Plan (1) Aspiration pneumonitis: Plan: recurrent hospitalizations for aspiration pneumonia/pneumonitis, was on hospice but revoked to come in for treatment. [facility] unhappy w/ agency/not treating patient w/ anything except zofran for n/v and they felt needed abx. Just started on pureed diet at [facility] this past tuesday. Patient has been out of the hospital for past 4-5 months when previously in about every month. Speech consulted -- pureed diet rec'd, permissive aspiration allowed. DID NOT TOLERATE LIQUIDS (combo structural/anxiety/agitation by patient). Palliative consultation undertaken -- see note (asked CM to send to [facility] today as well) Had placed on abx/switched to Zosyn, however discussed at length prior days more pneumonitis and not actual pneumonia and agreed we can d/c, done today WBC wnl, afebrile, not requiring any O2 Had placed on inhaled Budesonide BID for pneumonitis, lungs w/o coarseness on exam today Re-trial pureed diet (had been made NPO day prior for n/v and seizure activity -- see below) CM following, planning new hospice- will need bed exchange/patient remaining inpatient until Tuesday for arrangements to be made. Discussed, possibly hospice able to provide breathing treatments for symptom control, will confirm w/ CM/hospice agency prior to d/c (2) Epilepsy: Plan: History of epilepsy, no recent seizures per discussion 12/09 however does appear having small seizures over past several months based on conversation w/ aides at bedside previously Possible seizure activity lasting ~1 minute AM 12/10 between 9-930am (no IV site at that time, was waiting for IV team, RN not notified by aide and had not gotten his AM medications). Prolactin not signif elevated Neuro consulted, no need for EEG and was cancelled Depakote level LOW, placed on IV depacon Q6H and given additional 500mg IV dose 12/10 Remains on IV ativan/keppra, additional IV ativan available for refractory seizure Additional seizure like activity AM 12/11 <1minute. Repeat Keppra level wnl Per neuro, continue current medications at this time IF PATIENT HAS SPELL LASTING >5MIN, NEED IV LORAZEPAM Can consider Ativan SL scheduled if unable to tolerate the PO intake/pills. Maintain seizure precautions (3) Nausea & vomiting: Plan: chronic aspiration, permissive in past. antiemetics prn, however to feel aspect of agitation from inpatient/unfamiliar faces, in combination w/ structural/tortuous esophagus discussed at length PEG tube/feeding, not in best interest of Raz. Doesn't prevent aspiration issues either MUCH MORE CALM/interactive w/ current caregiver at bedside this morning No further n/v, advancing diet today as above. ?related to seizures vs agitation Monitor (4) Aspiration pneumonia: Plan: possible, but suspect more pneumonitis as above, continue inhaled budesonide BID see prior notes, unable to tolerate pulm toilet/flutter/vibration/etc Maintain HOB elevation/aspiration precautions (5) Cerebral palsy: Plan: Cerebral palsy Baseline function, smiles laughs intermittently yells out, uses motorized wheelchair normally When feeling better, he likes to be in the wheelchair and roaming halls w/ aides Paroxysmal atrial tachycardia No longer on propranolol, heart rate is regular on admission Heart rate well controlled without arrhythmia previous admission DVT prophylaxis: Heparin twice daily, patient bedbound CODE STATUS DNR/DNI Plan continued inpatient stay dc'd abx, continued inhaled budesonide BID hospice at d/c once arranged but remaining inpatient through the weekend Admission and Anticipated Discharge Date Admission Date: December 07, 2022 Supervising Physician Co-Signing Physician Notes The patient was not seen by me. The chart was reviewed. The case was discussed with MOLLY Morillo. Agree with assessment and plan Subjective eval this morning, acting his usual self. no diet yet but discussed ordered pureed for today. aide in room states she was told ~1min seizure before 9am this morning. On IV antiepeleptic, discussed can also schedule SL ativan if unable to switch to oral. lungs sound improved on inhaled budesonide, which possibly hospice may be able to continue for comfort/symptoms. Planning to d/c further abx at this time given more likely pneumonitis as discussed previously. Physical Exam Physical Exam: General: awake in bed, leaning to the right as he usually does, no acute distress, nonverbal at baseline, chronically ill appearing but appears back to usual self Resp: no tachypnea/increased work of breathing, coarse breath sounds almost completely resolved, 97% on RA CV: RRR, quiet HS, no m/r/g, trace pedal edema GI:+_BS, soft/NT, no withdrawal/grimacing Extremities: Flexed posture,Muscle atrophy consistent with cerebral palsy. Skin: perfused, no obvious lesions/rashes Results & Data Results & Data Vital Signs (Past 12 Hours) Vital Signs Temp Pulse Resp BP Pulse Ox O2 Del Method 12/11/22 08:06 37.3 C 90 18 103/59 L 97 Room Air 12/11/22 07:13 89 16 95 Room Air 12/10/22 22:56 37.1 C 76 18 124/69 95 Room Air Laboratory Results 12/11/22 12/11/22 12/11/22 Range/Units 10:57 05:36 05:36 WBC 7.74 (4.8-10.8) K/ul RBC 3.17 L (4.70-6.10) M/uL Hgb 10.0 L (14.0-18.0) g/dl Hct 30.1 L (42.0-52.0) % MCV 95.0 (80.0-100.0) fL MCH 31.5 (25.0-34.0) pg MCHC 33.2 (32.0-36.0) g/dL RDW Std Deviation 45.1 (36.4-46.3) fL RDW Coeff of [place] 13.0 (11.5-14.5) % Plt Count 390 (130-400) K/uL MPV 10.1 (9.4-12.4) fL Sodium 139 (136-145) mmol/L Potassium 3.9 (3.5-5.1) mmol/L Chloride 108 H (98-107) mmol/L Carbon Dioxide 23 (21-32) mmol/L Anion Gap 8 (3-11) BUN 6 (6-23) mg/dl Creatinine 0.59 L (0.6-1.4) mg/dl Est Cr Clr Drug Dosing 102.8 ml/min Est GFR ( Amer) 127.5 ml/min Est GFR (Non-Af Amer) 110.0 ml/min BUN/Creatinine Ratio 10.2 (10-20) Glucose 96 (70-99(Fasting)) mg/dl Calcium 8.0 L (8.6-10.3) mg/dl Valproic Acid 76 (50-100) mcg/ml PG Care Time/CCT Total # of Minutes Spent Total Time Spent with Patient: Total time spent is greater than 50% in coordination of care (as documented) at patient's floor/unit and/or counseling patient: Coding Level of Care Code 77349 SUB INP/OBS CARE 3/50MIN Diagnoses Aspiration pneumonitis J69.0 Epilepsy G40.909 Nausea & vomiting R11.2 Vomiting type: unspecified Aspiration pneumonia J69.0 Cerebral palsy G80.9 (3) Nausea & vomiting Vomiting type: unspecified Qualified Code(s): R11.2 - Nausea with vomiting, unspecified
[2022-12-11] MEDS: HEPARIN SOD 5,000 UNIT/0.5 ML VIAL SQ SCH ×2 (10:01→20:12)
[2022-12-11] MEDS: LORazepam 2 MG/1 ML VIAL IV SCH ×2 (10:10→20:19)
[2022-12-11] MEDS: levETIRAcetam 1,500 MG in 0.9 % SODIUM CHLORIDE 100 ML IV SCH ×2 (10:13→20:19)
[2022-12-11] MEDS: PANTOprazole 40 MG in SYRINGE 0 ML IV SCH (11:50)
[2022-12-12] MEDS: VALPROATE SOD 375 MG in DEXTROSE 5% 50 ML IV SCH ×4 (05:03→23:48)
[2022-12-12 06:35] LABS: Basophils # (auto) 0.02 K/uL (0-0.2); Basophils % (auto) 0.3 %; Eosinophils # (auto) 0.21 K/uL (0-0.50); Eosinophils % (auto) 2.7 %; Hematocrit (blood only) 31.8 % (42.0-52.0); Hemoglobin 10.4 g/dl (14.0-18.0); Immature Granulocytes # (auto) 0.05 K/uL (0.01-0.20); Immature Granulocytes % (auto) 0.7 %; Lymphocytes # (auto) 1.86 K/uL (1.2-3.4); Lymphocytes % (auto) 24.3 %; Mean Corpuscular Hgb Conc 32.7 g/dL (32.0-36.0); Mean Corpuscular Volume 97.8 fL (80.0-100.0); Monocytes # (auto) 0.78 K/uL (0.11-0.59); Monocytes % (auto) 10.2 %; Neutrophils # (auto) 4.73 K/uL (1.40-6.50); Neutrophils % (auto) 61.8 %; Platelet Count 376 K/uL (130-400); RDW Coefficient of Variation 13.3 % (11.5-14.5); RDW Standard Deviation 48.3 fL (36.4-46.3); Red Blood Count 3.25 M/uL (4.70-6.10); White Blood Count 7.65 K/ul (4.8-10.8)
[2022-12-12 06:52] LABS: BUN Creatinine Ratio 16.1 (10-20); Calcium 8.5 mg/dl (8.6-10.3); Creatinine Clr Calc Pharmacy 97.8 ml/min; Est GFR (Non-African American) 107.8 ml/min; Magnesium 2.2 mg/dl (1.7-2.4); Potassium 4.1 mmol/L (3.5-5.1)
[2022-12-12] MEDS: BUDESONIDE 0.5 MG/2 ML VIAL (PULMICORT) NEB SCH ×2 (07:11→20:10)
--- NOTE | 2022-12-12 07:50 | Hospitalist Progress Note ---
Date of Service December 12, 2022 Assessment & Plan (1) Aspiration pneumonitis: Plan: recurrent hospitalizations for aspiration pneumonia/pneumonitis, was on hospice but revoked to come in for treatment. [facility] caregivers unhappy w/ agency/not treating patient w/ anything except zofran for n/v and they felt needed abx. Just started on pureed diet at [facility] this past tuesday. Patient has been out of the hospital for past 4-5 months when previously in about every month. Speech consulted -- pureed diet rec'd, permissive aspiration allowed. DID NOT TOLERATE LIQUIDS (combo structural/anxiety/agitation by patient). Palliative consultation undertaken -- see note (asked CM to send to [facility] today as well) Had placed on abx/switched to Zosyn, however discussed at length prior days more pneumonitis and not actual pneumonia and agreed we can d/c, done 12/11 WBC wnl, afebrile, not requiring any O2 Had placed on inhaled Budesonide BID for pneumonitis, lungs w/o coarseness on exam today continued resolution/stable. No further n/v --> can continue these for symptom control at d/c if hospice able to allow. Will have CM check --> also checking overnight pulse ox for reports of apnea/overnight o2 can be arranged for at d/c as well. Tolerating pureed diet (of note, no coffee in past two days, can avoid in future as well) CM following, hospice planning at d/c once arranged/new bed/etc. NO FURTHER SEIZURE ACTIVITY --> will plan to transition to oral antiepeleptics for AM and monitor tolerance/see if needing to schedule SL ativan at d/c instead if unable to tolerate. (2) Epilepsy: Plan: History of epilepsy, no recent seizures per discussion 12/09 however does appear having small seizures over past several months based on conversation w/ aides at bedside previously Possible seizure activity lasting ~1 minute AM 12/10 between 9-930am (no IV site at that time, was waiting for IV team, RN not notified by aide and had not gotten his AM medications). Prolactin not signif elevated Neuro consulted, no need for EEG and was cancelled Depakote level LOW, placed on IV depacon Q6H and given additional 500mg IV dose 12/10 Remains on IV ativan/keppra, additional IV ativan available for refractory seizure Additional seizure like activity AM 12/11 <1minute. Repeat Keppra level wnl Per neuro, continue current medications at this time IF PATIENT HAS SPELL LASTING >5MIN, NEED IV LORAZEPAM NO FURTHER SEIZURES --> plan to transition to PO seizure meds in AM Can consider Ativan SL scheduled if unable to tolerate the PO intake/pills. Maintain seizure precautions (3) Nausea & vomiting: Plan: chronic aspiration, permissive in past. antiemetics prn, however to feel aspect of agitation from inpatient/unfamiliar faces, in combination w/ structural/tortuous esophagus discussed at length PEG tube/feeding, not in best interest of Raz. Doesn't prevent aspiration issues either MUCH MORE CALM/interactive w/ current caregiver at bedside this morning No further n/v, advancing diet today as above. ?related to seizures vs agitation vs pneumonitis (4) Aspiration pneumonia: Plan: possible, but suspect more pneumonitis as above, continue inhaled budesonide BID see prior notes, unable to tolerate pulm toilet/flutter/vibration/etc Maintain HOB elevation/aspiration precautions (5) Cerebral palsy: Plan: Cerebral palsy Baseline function, smiles laughs intermittently yells out, uses motorized wheelchair normally When feeling better, he likes to be in the wheelchair and roaming halls w/ aides Paroxysmal atrial tachycardia No longer on propranolol, heart rate is regular on admission Heart rate well controlled without arrhythmia previous admission DVT prophylaxis: Heparin twice daily, patient bedbound CODE STATUS DNR/DNI Plan continued inpatient stay transition to PO meds tomorrow and monitor tolerance. overnight pulse ox requested possible dc w/ hospice tomorrow vs tuesday depending arrangements in place. CM following Admission and Anticipated Discharge Date Admission Date: December 07, 2022 Supervising Physician Co-Signing Physician Notes The patient was not seen by me. The chart was reviewed. Case discussed with MOLLY Morillo. Agree with assessment and plan Subjective eval this morning, doing well. aide at bedside no further seizure activity concerns possible sleep apnea, would like overnight pulse ox study. no further n/v, aide reports no coffee in past two days as well and wondering if contributing. discussed inhaled budesonide but can avoid coffee as well. possible dc tomorrow vs Tuesday pending arrangements and will plan to switch back to oral antiepeleptics in AM and if able to tolerate, plan to send on usual meds. If not may need to schedule SL ativan as discussed previously. Questions/concerns addressed at this time -- did have some issues w/ more being turned off several times overnight without response from staff. She is unsure reason to why this occurred -- will look into. Physical Exam Physical Exam: General: awake in bed, leaning to the right as he usually does, no acute distress, nonverbal at baseline, chronically ill appearing but appears back to usual self Resp: no tachypnea/increased work of breathing, coarse breath sounds RESOLVED,no wheezing, 97% on RA CV: RRR, quiet HS, no m/r/g, trace pedal edema GI:+_BS, soft/NT, no withdrawal/grimacing Extremities: Flexed posture,Muscle atrophy consistent with cerebral palsy. Skin: perfused, no obvious lesions/rashes Results & Data Results & Data Vital Signs (Past 12 Hours) Vital Signs Temp Pulse Resp BP Pulse Ox O2 Del Method FiO2 12/12/22 07:14 Room Air 12/12/22 07:21 90 14 96 Room Air 21 12/11/22 23:11 37 C 90 16 106/68 96 Room Air 12/11/22 20:09 37 C 113 H 18 117/60 95 Room Air Laboratory Results 12/12/22 12/12/22 12/11/22 Range/Units 05:57 05:57 10:57 WBC 7.65 (4.8-10.8) K/ul RBC 3.25 L (4.70-6.10) M/uL Hgb 10.4 L (14.0-18.0) g/dl Hct 31.8 L (42.0-52.0) % MCV 97.8 (80.0-100.0) fL MCH 32.0 (25.0-34.0) pg MCHC 32.7 (32.0-36.0) g/dL RDW Std Deviation 48.3 H (36.4-46.3) fL RDW Coeff of [place] 13.3 (11.5-14.5) % Plt Count 376 (130-400) K/uL MPV 10.0 (9.4-12.4) fL Immature Gran % (Auto) 0.7 % Neut % (Auto) 61.8 % Lymph % (Auto) 24.3 % [place] % (Auto) 10.2 % Eos % (Auto) 2.7 % Baso % (Auto) 0.3 % Neut # (Auto) 4.73 (1.40-6.50) K/uL Lymph # (Auto) 1.86 (1.2-3.4) K/uL [place] # (Auto) 0.78 H (0.11-0.59) K/uL Eos # (Auto) 0.21 (0-0.50) K/uL Baso # (Auto) 0.02 (0-0.2) K/uL Immature Gran # (Auto) 0.05 (0.01-0.20) K/uL Sodium 142 (136-145) mmol/L Potassium 4.1 (3.5-5.1) mmol/L Chloride 110 H (98-107) mmol/L Carbon Dioxide 26 (21-32) mmol/L Anion Gap 6 (3-11) BUN 10 (6-23) mg/dl Creatinine 0.62 (0.6-1.4) mg/dl Est Cr Clr Drug Dosing 97.8 ml/min Est GFR ( Amer) 125.0 ml/min Est GFR (Non-Af Amer) 107.8 ml/min BUN/Creatinine Ratio 16.1 (10-20) Glucose 101 H (70-99(Fasting)) mg/dl Calcium 8.5 L (8.6-10.3) mg/dl Magnesium 2.2 (1.7-2.4) mg/dl Valproic Acid 76 (50-100) mcg/ml PG Care Time/CCT Total # of Minutes Spent Total Time Spent with Patient: Total time spent is greater than 50% in coordination of care (as documented) at patient's floor/unit and/or counseling patient: Coding Level of Care Code 56750 SUB INP/OBS CARE 3/50MIN Diagnoses Aspiration pneumonitis J69.0 Epilepsy G40.909 Nausea & vomiting R11.2 Vomiting type: unspecified Aspiration pneumonia J69.0 Cerebral palsy G80.9 (3) Nausea & vomiting Vomiting type: unspecified Qualified Code(s): R11.2 - Nausea with vomiting, unspecified
[2022-12-12] MEDS: HEPARIN SOD 5,000 UNIT/0.5 ML VIAL SQ SCH ×2 (08:24→20:30)
[2022-12-12] MEDS: POLYETHYLENE (MIRALAX) 17 GM PACK PO SCH (08:27)
[2022-12-12] MEDS: LORazepam 2 MG/1 ML VIAL IV SCH (09:19)
[2022-12-12] MEDS: levETIRAcetam 1,500 MG in 0.9 % SODIUM CHLORIDE 100 ML IV SCH ×2 (09:25→20:34)
[2022-12-12] MEDS: PANTOprazole 40 MG in SYRINGE 0 ML IV SCH (10:36)
[2022-12-12] MEDS ORDERED: ACETAMINOPHEN 1,000 MG/100 ML VIAL IV STA (20:30)
[2022-12-12] MEDS: LORazepam 2 MG/1 ML VIAL IV PRN (20:57)
[2022-12-12] MEDS ORDERED: LORazepam 1 MG TAB SL SCH (21:00)
[2022-12-13] MEDS: DIVALPROEX SODIUM SPRINKLE/DEL-REL 125 MG CAP PO SCH ×2 (08:18→21:57)
[2022-12-13] MEDS: HEPARIN SOD 5,000 UNIT/0.5 ML VIAL SQ SCH ×2 (08:18→21:57)
[2022-12-13] MEDS: levETIRAcetam ORAL SOLN 100MG/ML PO SCH ×2 (08:19→21:47)
[2022-12-13] MEDS: POLYETHYLENE (MIRALAX) 17 GM PACK PO SCH (08:19)
[2022-12-13] MEDS: LORazepam 0.5 MG TAB SL SCH (08:21)
[2022-12-13] MEDS: BUDESONIDE 0.5 MG/2 ML VIAL (PULMICORT) NEB SCH ×2 (08:22→19:37)
[2022-12-13] MEDS: PANTOprazole 40 MG in SYRINGE 0 ML IV SCH (11:42)
--- NOTE | 2022-12-13 15:21 | Hospitalist Progress Note ---
Date of Service December 13, 2022 Assessment & Plan (1) Aspiration pneumonitis: Plan: recurrent hospitalizations for aspiration pneumonia/pneumonitis, was on hospice but revoked to come in for treatment. [facility] caregivers unhappy w/ agency/not treating patient w/ anything except zofran for n/v and they felt needed abx. Just started on pureed diet at [facility] this past tuesday. Patient has been out of the hospital for past 4-5 months when previously in about every month. Speech consulted -- pureed diet rec'd, permissive aspiration allowed. Per aide patient was tolerating the pureed diet today Palliative consultation undertaken -- see note (asked CM to send to [facility] today as well) WBC wnl, afebrile, not requiring any O2 - antibiotics stopped 12/11 Had placed on inhaled Budesonide BID for pneumonitis, lungs w/o coarseness on exam today continued resolution/stable. No further n/v - can continue these for symptom control at d/c if hospice able to allow. Will have CM check - overnight pulse ox with only one epidosde of desaturation, no apnea and no pulse events Tolerating pureed diet (of note, no coffee in past two days, can avoid in future as well) CM following, hospice planning at d/c once arranged/new bed/etc. NO FURTHER SEIZURE ACTIVITY - tolerating oral Depokote sprinkles and Keppra liquid (2) Epilepsy: Plan: History of epilepsy, no recent seizures per discussion 12/09 however does appear having small seizures over past several months based on conversation w/ aides at bedside previously Possible seizure activity lasting ~1 minute AM 12/10 between 9-930am (no IV site at that time, was waiting for IV team, RN not notified by aide and had not gotten his AM medications). Prolactin not signif elevated Neuro consulted, no need for EEG and was cancelled Depakote level LOW, placed on IV depacon Q6H and given additional 500mg IV dose 12/10 Additional seizure like activity AM 12/11 <1minute. Repeat Keppra level wnl Per neuro, continue current medications at this time IF PATIENT HAS SPELL LASTING >5MIN, NEED IV LORAZEPAM NO FURTHER SEIZURES - Now back on oral keppra liquid and depakote sprinles Can consider Ativan SL scheduled if unable to tolerate the PO intake/pills. Maintain seizure precautions (3) Nausea & vomiting: Plan: chronic aspiration, permissive in past. antiemetics prn, however to feel aspect of agitation from inpatient/unfamiliar faces, in combination w/ structural/tortuous esophagus discussed at length PEG tube/feeding, not in best interest of Raz. Doesn't prevent aspiration issues either MUCH MORE CALM/interactive w/ current caregiver at bedside this morning No further n/v, advancing diet today as above. ?related to seizures vs agitation vs pneumonitis (4) Aspiration pneumonia: Plan: possible, but suspect more pneumonitis as above, continue inhaled budesonide BID see prior notes, unable to tolerate pulm toilet/flutter/vibration/etc Maintain HOB elevation/aspiration precautions (5) Cerebral palsy: Plan: Cerebral palsy Baseline function, smiles laughs intermittently yells out, uses motorized wheelchair normally When feeling better, he likes to be in the wheelchair and roaming halls w/ aides Paroxysmal atrial tachycardia No longer on propranolol, heart rate is regular on admission Heart rate well controlled without arrhythmia previous admission DVT prophylaxis: Heparin twice daily, patient bedbound CODE STATUS DNR/DNI Plan continued inpatient stay possible dc w/ hospice tomorrow depending arrangements in place awaiting insurance auth. CM following Admission and Anticipated Discharge Date Admission Date: December 07, 2022 Subjective Seen this afternoon, doing well. aide at bedside, feeding lunch no further seizure activity possible dc tomorrow pending insurance approval for [facility]- will yi n to switch back to oral antiepeleptics in AM and if able to tolerate, plan to send on usual meds. If not may need to schedule SL ativan as discussed previously. Review of Systems Review of Systems: unable to obtain ROS Physical Exam Constitutional: Awake in bed laying on right side eating lunch with assistance from his aide, nonverbal Respiratory: normal respiratory effort; no respiratory distress and no labored breathing Auscultation: lungs clear to auscultation bilaterally 97% RA Cardiovascular: Rate/Rhythm: regular rate and regular rhythm Extremities: normal capillary refill; no edema Gastrointestinal (Abdomen): normal bowel sounds, soft, nontender, no hepatosplenomegaly Musculoskeletal: muscle atrophy and contractures of extremities Skin: no rashes, warm and dry Results & Data Results & Data Vital Signs (Past 12 Hours) Vital Signs Temp Pulse Resp BP Pulse Ox O2 Del Method 12/13/22 14:41 36.9 C 94 H 18 101/71 97 Room Air 12/13/22 08:22 57 L 18 95 Room Air 12/13/22 08:15 36.5 C 79 18 112/71 94 Room Air PG Care Time/CCT Total # of Minutes Spent Total Time Spent with Patient: Total time spent is greater than 50% in coordination of care (as documented) at patient's floor/unit and/or counseling patient: Coding Level of Care Code 86130 SUB INP/OBS CARE 2/35MIN Diagnoses Aspiration pneumonitis J69.0 Epilepsy G40.909 Nausea & vomiting R11.2 Vomiting type: unspecified Aspiration pneumonia J69.0 Cerebral palsy G80.9 (3) Nausea & vomiting Vomiting type: unspecified Qualified Code(s): R11.2 - Nausea with vomiting, unspecified
[2022-12-14] MEDS: BUDESONIDE 0.5 MG/2 ML VIAL (PULMICORT) NEB SCH ×2 (06:53→19:32)
[2022-12-14] MEDS: DIVALPROEX SODIUM SPRINKLE/DEL-REL 125 MG CAP PO SCH ×2 (08:06→20:11)
[2022-12-14] MEDS: HEPARIN SOD 5,000 UNIT/0.5 ML VIAL SQ SCH ×2 (08:06→20:10)
[2022-12-14] MEDS: levETIRAcetam ORAL SOLN 100MG/ML PO SCH ×2 (08:07→20:10)
[2022-12-14] MEDS: POLYETHYLENE (MIRALAX) 17 GM PACK PO SCH (08:08)
[2022-12-14] MEDS: LORazepam 0.5 MG TAB SL SCH (08:10)
[2022-12-14] MEDS ORDERED: LANSOPRAZOLE 30 MG SOLTAB SL SCH (11:00)
--- NOTE | 2022-12-14 14:20 | Hospitalist Progress Note ---
Date of Service December 14, 2022 Assessment & Plan (1) Aspiration pneumonitis: Plan: recurrent hospitalizations for aspiration pneumonia/pneumonitis, was on hospice but revoked to come in for treatment. [facility] caregivers unhappy w/ agency/not treating patient w/ anything except zofran for n/v and they felt needed abx. Just started on pureed diet at [facility] this past tuesday. Patient has been out of the hospital for past 4-5 months when previously in about every month. Speech consulted -- pureed diet rec'd, permissive aspiration allowed. Per aide patient was tolerating the pureed diet today Palliative consultation undertaken -- see note (asked CM to send to [facility] today as well) WBC wnl, afebrile, not requiring any O2 - antibiotics stopped 12/11 Had placed on inhaled Budesonide BID for pneumonitis, lungs w/o coarseness on exam today continued resolution/stable. No further n/v - can continue these for symptom control at d/c if hospice able to allow. Will have CM check - overnight pulse ox with only one epidosde of desaturation, no apnea and no pulse events Tolerating pureed diet (of note, no coffee in past two days, can avoid in future as well) CM following, hospice planning at d/c once arranged/new bed/etc. NO FURTHER SEIZURE ACTIVITY - tolerating oral Depokote sprinkles and Keppra liquid (2) Epilepsy: Plan: History of epilepsy, no recent seizures per discussion 12/09 however does appear having small seizures over past several months based on conversation w/ aides at bedside previously Possible seizure activity lasting ~1 minute AM 12/10 between 9-930am (no IV site at that time, was waiting for IV team, RN not notified by aide and had not gotten his AM medications). Prolactin not signif elevated Neuro consulted, no need for EEG and was cancelled Depakote level LOW, placed on IV depacon Q6H and given additional 500mg IV dose 12/10 Additional seizure like activity AM 12/11 <1minute. Repeat Keppra level wnl Per neuro, continue current medications at this time IF PATIENT HAS SPELL LASTING >5MIN, NEED IV LORAZEPAM NO FURTHER SEIZURES - Now back on oral keppra liquid and depakote sprinles Can consider Ativan SL scheduled if unable to tolerate the PO intake/pills. Maintain seizure precautions (3) Nausea & vomiting: Plan: chronic aspiration, permissive in past. antiemetics prn, however to feel aspect of agitation from inpatient/unfamiliar faces, in combination w/ structural/tortuous esophagus discussed at length PEG tube/feeding, not in best interest of Raz. Doesn't prevent aspiration issues either MUCH MORE CALM/interactive w/ current caregiver at bedside this morning No further n/v, advancing diet today as above. ?related to seizures vs agitation vs pneumonitis (4) Aspiration pneumonia: Plan: possible, but suspect more pneumonitis as above, continue inhaled budesonide BID see prior notes, unable to tolerate pulm toilet/flutter/vibration/etc Maintain HOB elevation/aspiration precautions (5) Cerebral palsy: Plan: Cerebral palsy Baseline function, smiles laughs intermittently yells out, uses motorized wheelchair normally When feeling better, he likes to be in the wheelchair and roaming halls w/ aides Paroxysmal atrial tachycardia No longer on propranolol, heart rate is regular on admission Heart rate well controlled without arrhythmia previous admission DVT prophylaxis: Heparin twice daily, patient bedbound CODE STATUS DNR/DNI Plan continued inpatient stay possible dc w/ hospice tomorrow depending arrangements in place awaiting approval from [employer] Admission and Anticipated Discharge Date Admission Date: December 07, 2022 Subjective Seen this afternoon, doing well. aide at bedside no further seizure activity possible dc tomorrow - awaiting approval from [employer] [employer] Review of Systems Review of Systems: unable to obtain ROS Physical Exam Constitutional: Awake laying in bed in NAD Respiratory: normal respiratory effort; no respiratory distress and no labored breathing Auscultation: lungs clear to auscultation bilaterally Cardiovascular: Rate/Rhythm: regular rate and regular rhythm Extremities: normal capillary refill; no edema Gastrointestinal (Abdomen): normal bowel sounds, soft, nontender, no hepatosplenomegaly Musculoskeletal: contractures extremities Skin: no rashes, warm and dry Results & Data Results & Data Vital Signs (Past 12 Hours) Vital Signs Temp Pulse Resp BP Pulse Ox O2 Del Method 12/14/22 08:35 36.6 C 85 18 95/57 L 95 Room Air 12/14/22 07:00 82 18 96 Room Air PG Care Time/CCT Total # of Minutes Spent Total Time Spent with Patient: Total time spent is greater than 50% in coordination of care (as documented) at patient's floor/unit and/or counseling patient: Coding Level of Care Code 96033 SUB INP/OBS CARE 09/29MIN Diagnoses Aspiration pneumonitis J69.0 Epilepsy G40.909 Nausea & vomiting R11.2 Vomiting type: unspecified Aspiration pneumonia J69.0 Cerebral palsy G80.9 (3) Nausea & vomiting Vomiting type: unspecified Qualified Code(s): R11.2 - Nausea with vomiting, unspecified
[2022-12-14] MEDS: LORazepam 2 MG/1 ML VIAL IV PRN (20:15)
[2022-12-15] MEDS: BUDESONIDE 0.5 MG/2 ML VIAL (PULMICORT) NEB SCH ×2 (07:09→19:14)
[2022-12-15] MEDS: DIVALPROEX SODIUM SPRINKLE/DEL-REL 125 MG CAP PO SCH ×2 (08:24→20:37)
[2022-12-15] MEDS: PANTOprazole 40 MG TAB PO SCH (08:26)
[2022-12-15] MEDS: levETIRAcetam ORAL SOLN 100MG/ML PO SCH ×2 (08:26→20:38)
[2022-12-15] MEDS: HEPARIN SOD 5,000 UNIT/0.5 ML VIAL SQ SCH ×2 (08:31→20:37)
[2022-12-15] MEDS: LORazepam 0.5 MG TAB SL SCH (08:31)
[2022-12-15] MEDS: POLYETHYLENE (MIRALAX) 17 GM PACK PO SCH (08:31)
--- NOTE | 2022-12-15 13:45 | Hospitalist Progress Note ---
Date of Service December 15, 2022 Assessment & Plan (1) Aspiration pneumonitis: Plan: recurrent hospitalizations for aspiration pneumonia/pneumonitis, was on hospice but revoked to come in for treatment. [facility] caregivers unhappy w/ agency/not treating patient w/ anything except zofran for n/v and they felt needed abx. Just started on pureed diet at [facility] this past tuesday. Patient has been out of the hospital for past 4-5 months when previously in about every month. Speech consulted -- pureed diet rec'd, permissive aspiration allowed. Per aide patient was tolerating the pureed diet today Palliative consultation undertaken -- see note (asked CM to send to [facility] today as well) WBC wnl, afebrile, not requiring any O2 - antibiotics stopped 12/11 97% on RA Had placed on inhaled Budesonide BID for pneumonitis, lungs normal on exam today continued resolution/stable. No further n/v - can continue these for symptom control at d/c if hospice able to allow. Will have CM check - overnight pulse ox with only one epidosde of desaturation, no apnea and no pulse events Tolerating pureed diet (of note, no coffee in past two days, can avoid in future as well) CM following, hospice planning at d/c once arranged/new bed/etc. NO FURTHER SEIZURE ACTIVITY - tolerating oral Depokote sprinkles and Keppra liquid (2) Epilepsy: Plan: History of epilepsy, no recent seizures per discussion 12/09 however does appear having small seizures over past several months based on conversation w/ aides at bedside previously Possible seizure activity lasting ~1 minute AM 12/10 between 9-930am (no IV site at that time, was waiting for IV team, RN not notified by aide and had not gotten his AM medications). Prolactin not signif elevated Neuro consulted, no need for EEG and was cancelled Depakote level LOW, placed on IV depacon Q6H and given additional 500mg IV dose 12/10 Additional seizure like activity AM 12/11 <1minute. Repeat Keppra level wnl Per neuro, continue current medications at this time IF PATIENT HAS SPELL LASTING >5MIN, NEED IV LORAZEPAM NO FURTHER SEIZURES - Now back on oral keppra liquid and depakote sprinles Can consider Ativan SL scheduled if unable to tolerate the PO intake/pills. Maintain seizure precautions (3) Nausea & vomiting: Plan: chronic aspiration, permissive in past. antiemetics prn, however to feel aspect of agitation from inpatient/unfamiliar faces, in combination w/ structural/tortuous esophagus discussed at length PEG tube/feeding, not in best interest of Raz. Doesn't prevent aspiration issues either MUCH MORE CALM/interactive w/ current caregiver at bedside this morning No further n/v, advancing diet today as above. possibly was related to seizures vs agitation vs pneumonitis (4) Aspiration pneumonia: Plan: possible, but suspect more pneumonitis as above, continue inhaled budesonide BID see prior notes, unable to tolerate pulm toilet/flutter/vibration/etc Maintain HOB elevation/aspiration precautions (5) Cerebral palsy: Plan: Cerebral palsy Baseline function, smiles laughs intermittently yells out, uses motorized wheelchair normally When feeling better, he likes to be in the wheelchair and roaming halls w/ aides Paroxysmal atrial tachycardia No longer on propranolol, heart rate is regular on admission Heart rate well controlled without arrhythmia previous admission DVT prophylaxis: Heparin twice daily, patient bedbound CODE STATUS DNR/DNI Plan continued inpatient stay possible dc w/ hospice tomorrow depending [facility] in place [facility] and did not accept patient Admission and Anticipated Discharge Date Admission Date: December 07, 2022 Subjective Seen this afternoon, doing well. aide at bedside no further seizure activity possible dc tomorrow - possible with [facility] Review of Systems Review of Systems: unable to obtain ROS Physical Exam Constitutional: no acute distress Respiratory: normal respiratory effort; no respiratory distress and no labored breathing Auscultation: lungs clear to auscultation bilaterally Cardiovascular: Rate/Rhythm: regular rate and regular rhythm Extremities: normal capillary refill; no edema Gastrointestinal (Abdomen): normal bowel sounds, soft, nontender, no hepatosplenomegaly Musculoskeletal: contractures of extremities Skin: no rashes, warm and dry Results & Data Results & Data Vital Signs (Past 12 Hours) Vital Signs Temp Pulse Resp BP Pulse Ox O2 Del Method 12/15/22 08:20 Room Air 12/15/22 07:54 36.9 C 82 16 99/60 L 95 Room Air 12/15/22 07:16 81 16 93 Room Air PG Care Time/CCT Total # of Minutes Spent Total Time Spent with Patient: Total time spent is greater than 50% in coordination of care (as documented) at patient's floor/unit and/or counseling patient: Coding Level of Care Code 19445 SUB INP/OBS CARE 09/29MIN Diagnoses Aspiration pneumonitis J69.0 Epilepsy G40.909 Nausea & vomiting R11.2 Vomiting type: unspecified Aspiration pneumonia J69.0 Cerebral palsy G80.9 (3) Nausea & vomiting Vomiting type: unspecified Qualified Code(s): R11.2 - Nausea with vomiting, unspecified
[2022-12-15] MEDS: LORazepam 2 MG/1 ML VIAL IV PRN (20:37)
[2022-12-16] MEDS: BUDESONIDE 0.5 MG/2 ML VIAL (PULMICORT) NEB SCH ×2 (07:09→20:25)
[2022-12-16] MEDS: DIVALPROEX SODIUM SPRINKLE/DEL-REL 125 MG CAP PO SCH ×2 (08:45→19:19)
[2022-12-16] MEDS: PANTOprazole 40 MG TAB PO SCH (08:45)
[2022-12-16] MEDS: levETIRAcetam ORAL SOLN 100MG/ML PO SCH ×2 (08:45→19:20)
[2022-12-16] MEDS: HEPARIN SOD 5,000 UNIT/0.5 ML VIAL SQ SCH ×2 (08:46→19:20)
[2022-12-16] MEDS: LORazepam 0.5 MG TAB SL SCH (08:51)
[2022-12-16] MEDS: POLYETHYLENE (MIRALAX) 17 GM PACK PO SCH (08:52)
--- NOTE | 2022-12-16 11:37 | Hospitalist Progress Note ---
Date of Service December 16, 2022 Assessment & Plan (1) Aspiration pneumonitis: Plan: recurrent hospitalizations for aspiration pneumonia/pneumonitis, was on hospice but revoked to come in for treatment. [facility] caregivers unhappy w/ agency/not treating patient w/ anything except zofran for n/v and they felt needed abx. Just started on pureed diet at [facility] this past tuesday. Patient has been out of the hospital for past 4-5 months when previously in about every month. Speech consulted -- pureed diet rec'd, permissive aspiration allowed. Per aide patient was tolerating the pureed diet today Palliative consultation undertaken -- see note (asked CM to send to [facility] today as well) WBC wnl, afebrile, not requiring any O2 - antibiotics stopped 12/11 96% on RA Had placed on inhaled Budesonide BID for pneumonitis, lungs normal on exam today continued resolution/stable. No further n/v - can continue these for symptom control at d/c if [facility] allows Tolerating pureed diet (continue to avoid coffee) CM following, [facility] delivering equipment tonight and will accept for services anytime tomorrow NO FURTHER SEIZURE ACTIVITY - tolerating oral Depokote sprinkles and Keppra liquid (2) Epilepsy: Plan: History of epilepsy, no recent seizures per discussion 12/09 however does appear having small seizures over past several months based on conversation w/ aides at bedside previously Possible seizure activity lasting ~1 minute AM 12/10 between 9-930am (no IV site at that time, was waiting for IV team, RN not notified by aide and had not gotten his AM medications). Prolactin not signif elevated Neuro consulted, no need for EEG and was cancelled Depakote level LOW, placed on IV depacon Q6H and given additional 500mg IV dose 12/10 Additional seizure like activity AM 12/11 <1minute. Repeat Keppra level wnl Per neuro, continue current medications at this time IF PATIENT HAS SPELL LASTING >5MIN, NEED IV LORAZEPAM NO FURTHER SEIZURES - Now back on oral keppra liquid and depakote sprinles Can consider Ativan SL scheduled if unable to tolerate the PO intake/pills. Maintain seizure precautions (3) Nausea & vomiting: Plan: chronic aspiration, permissive in past. antiemetics prn, however to feel aspect of agitation from inpatient/unfamiliar faces, in combination w/ structural/tortuous esophagus discussed at length PEG tube/feeding, not in best interest of Raz. Doesn't prevent aspiration issues either MUCH MORE CALM/interactive w/ current caregiver at bedside this morning No further n/v, advancing diet today as above. possibly was related to seizures vs agitation vs pneumonitis (4) Aspiration pneumonia: Plan: possible, but suspect more pneumonitis as above, continue inhaled budesonide BID see prior notes, unable to tolerate pulm toilet/flutter/vibration/etc Maintain HOB elevation/aspiration precautions (5) Cerebral palsy: Plan: Cerebral palsy Baseline function, smiles laughs intermittently yells out, uses motorized wheelchair normally When feeling better, he likes to be in the wheelchair and roaming halls w/ aides Paroxysmal atrial tachycardia No longer on propranolol, heart rate is regular on admission Heart rate well controlled without arrhythmia previous admission DVT prophylaxis: Heparin twice daily, patient bedbound CODE STATUS DNR/DNI Plan continued inpatient stay possible dc w/ hospice tomorrow with [facility] hospice Admission and Anticipated Discharge Date Admission Date: December 07, 2022 Subjective Seen this afternoon, doing well. aide at bedside no further seizure activity Tolerating diet and medications with aspiration precautions [facility] is delivering equipment today and can accept patient for services anytime tomorrow Review of Systems Review of Systems: unable to obtain ROS Physical Exam Constitutional: no acute distress Respiratory: normal respiratory effort; no respiratory distress and no labored breathing Auscultation: lungs clear to auscultation bilaterally Cardiovascular: Rate/Rhythm: regular rate and regular rhythm Extremities: normal capillary refill; no edema Gastrointestinal (Abdomen): normal bowel sounds, soft, nontender, no hepatosplenomegaly Musculoskeletal: contractures of extremities Skin: no rashes, warm and dry Results & Data Results & Data Vital Signs (Past 12 Hours) Vital Signs Temp Pulse Resp BP Pulse Ox O2 Del Method 12/16/22 07:29 36.4 C L 75 16 93/69 L 96 Room Air 12/16/22 07:10 76 18 91 Room Air PG Care Time/CCT Total # of Minutes Spent Total Time Spent with Patient: Total time spent is greater than 50% in coordination of care (as documented) at patient's floor/unit and/or counseling patient: Coding Level of Care Code 70719 SUB INP/OBS CARE 09/29MIN Diagnoses Aspiration pneumonitis J69.0 Epilepsy G40.909 Nausea & vomiting R11.2 Vomiting type: unspecified Aspiration pneumonia J69.0 Cerebral palsy G80.9 (3) Nausea & vomiting Vomiting type: unspecified Qualified Code(s): R11.2 - Nausea with vomiting, unspecified
[2022-12-16] MEDS ORDERED: ACETAMINOPHEN 500 MG TAB PO STA (22:02)
[2022-12-17] MEDS: BUDESONIDE 0.5 MG/2 ML VIAL (PULMICORT) NEB SCH (07:29)
[2022-12-17] MEDS: DIVALPROEX SODIUM SPRINKLE/DEL-REL 125 MG CAP PO SCH (07:49)
[2022-12-17] MEDS: levETIRAcetam ORAL SOLN 100MG/ML PO SCH (07:49)
[2022-12-17] MEDS: PANTOprazole 40 MG TAB PO SCH (07:49)
[2022-12-17] MEDS: HEPARIN SOD 5,000 UNIT/0.5 ML VIAL SQ SCH (07:49)
[2022-12-17] MEDS: LORazepam 0.5 MG TAB SL SCH (07:51)
[2022-12-17] MEDS: POLYETHYLENE (MIRALAX) 17 GM PACK PO SCH (09:12)
--- NOTE | 2022-12-17 09:30 | Discharge Summary ---
Date of Service December 17, 2022 Admission HPI Per Admitting Provider Donny is a 62-year-old male past medical history of seizures, recurrent aspiration, tortuous esophagus, cerebral palsy, PAD, GERD, and recurrent aspiration pneumonia who was seen in the hospital for lethargy after vomiting. Patient was previously hospice, his decision maker would like to revoke hospice at this time and would like treatment for aspiration pneumonia and nausea/vomiting. Patient did have an episode of vigorous vomiting after which he vomited a small green navas approximately 1 week ago, otherwise had been on a pured diet. Since arriving in the ER he is not vomiting after getting a dose of Zofran, but is somnolent and has been more somnolent overall in the last 24 hours. He does seem to have more difficulty with nausea/vomiting over the last few days. No fevers. Awakens transiently to voice, nonverbal. Does not grimace on epigastric palpation. Appears nondistressed laying in bed. Last year did have a great removed by Dr. Mccracken was impacted and patient was with a torturous esophagus. Medical History: Reviewed Medications: Reviewed Surgical History: Reviewed Family history: Reviewed Allergies: Reviewed Social History: Reviewed Code Status: DNR/DNI Admission Exam Per Admitting Provider General: Somnolent, awakens to voice, sternal rub, withdraws to pinch but is nonverbal Pulm: Coarse in the bases. Diminished, without wheezes symmetrical chest rise. No increased work of breathing. No respiratory distress. Cardiac: RRR, -mrg. Radial pulses intact and symmetrical. Abdominal: Does not grimace to abdominal palpation. Soft. Extremities: Flexed posture,Muscle atrophy consistent with cerebral palsy. Principal Diagnosis Aspiration pneumonitis Epilepsy Discharge Exam Constitutional no acute distress (awake) Respiratory normal respiratory effort; no respiratory distress and no labored breathing Auscultation: lungs clear to auscultation bilaterally Cardiovascular Rate/Rhythm: regular rate and regular rhythm Extremities: normal capillary refill; no edema Gastrointestinal (Abdomen) normal bowel sounds, soft, nontender, no hepatosplenomegaly Musculoskeletal contractures of extremities, with muscle atrophy (c/w cerebral palsy) Skin no rashes, warm and dry Discharge Data Allergies Allergy/AdvReac Type Severity Reaction Status Date / Time metoclopramide Allergy Intermediate Agitation Verified 12/07/22 18:52 Consultations 12/07/22 18:18 ED Decision to Admit Stat 12/09/22 13:04 Consult Palliative Care Routine 12/10/22 10:07 Consult Neurology Routine Ordered Studies 12/07/22 16:25 CT abd pelvis IV con only Stat IMPRESSION: 1. Limited exam as above. 2. Trace pleural effusions with right greater than left bibasilar consolidation compatible with pneumonia versus aspiration pneumonitis. 3. No bowel obstruction or bowel wall thickening. 4. Prostamegaly with chronic bladder outlet obstruction. Correlate with urinalysis to exclude cystitis. 5. Moderate sized hiatal hernia. 6. Additional findings as above. Hospital Course (1) Aspiration pneumonitis: recurrent hospitalizations for aspiration pneumonia/pneumonitis, was on hospice but revoked to come in for treatment. [facility] unhappy w/ agency/not treating patient w/ anything except zofran for n/v and they felt needed abx. Just started on pureed diet at [facility] this past tuesday. Patient has been out of the hospital for past 4-5 months when previously in about every month. Speech consulted -- pureed diet rec'd, permissive aspiration allowed. Per aide patient was tolerating the pureed diet today Palliative consultation undertaken -- see note (asked CM to send to [facility] today as well) WBC wnl, afebrile, not requiring any O2 - antibiotics stopped 12/11 94% on RA - continue inhaled Budesonide BID prn for symptom control at d/c if [facility] hospice allows Tolerating pureed diet (continue to avoid coffee NO FURTHER SEIZURE ACTIVITY - tolerating oral Depokote sprinkles and Keppra liquid (2) Epilepsy: History of epilepsy, no recent seizures per discussion 12/09 however does appear having small seizures over past several months based on conversation w/ aides at bedside previously Possible seizure activity lasting ~1 minute AM 12/10 between 9-930am (no IV site at that time, was waiting for IV team, RN not notified by aide and had not gotten his AM medications). Prolactin not signif elevated Neuro consulted, no need for EEG and was cancelled Depakote level LOW, placed on IV depacon Q6H and given additional 500mg IV dose 12/10 Additional seizure like activity AM 12/11 <1minute. Repeat Keppra level wnl Per neuro, continue current medications at this time IF PATIENT HAS SPELL LASTING >5MIN, NEED IV LORAZEPAM NO FURTHER SEIZURES - Now back on oral keppra liquid and depakote sprinles Maintain seizure precautions (3) Nausea & vomiting: chronic aspiration, permissive in past. antiemetics prn, however to feel aspect of agitation from inpatient/unfamiliar faces, in combination w/ structural/tortuous esophagus discussed at length PEG tube/feeding, not in best interest of Raz. Doesn't prevent aspiration issues either MUCH MORE CALM/interactive w/ current caregiver at bedside this morning No further n/v, continue regular pureed diet possibly was related to seizures vs agitation vs pneumonitis (4) Aspiration pneumonia: possible, but suspect more pneumonitis as above, continue inhaled budesonide BID for symptom control see prior notes, unable to tolerate pulm toilet/flutter/vibration/etc Maintain HOB elevation/aspiration precautions (5) Cerebral palsy: Cerebral palsy Baseline function, smiles laughs intermittently yells out, uses motorized wheelchair normally When feeling better, he likes to be in the wheelchair and roaming halls w/ aides Paroxysmal atrial tachycardia No longer on propranolol, heart rate is regular on admission Heart rate well controlled without arrhythmia previous admission Plan Discharge today with [facility] Total Time Total Time Spent Total Time Spent (In Minutes): 40 Discharge Plan Discharge Items Patient Disposition: Hospice - Medical Facility Reason For Visit: ASPIRATION PNA Discharge Diagnosis: Aspiration pneumonitis Epilepsy Activity: Resume your previous activity Non-emergency contact: Primary Care Provider Call non-emergency contact if: you have any medication questions, your symptoms worsen and you have a fever Follow-up/Referrals: Sofia Xie MD [Primary Care Provider] - Diet: Regular Diet Texture: Pureed (blended smooth) Addtl Attending Provider Instructions: Pateint was admitted after having nausea and vomiting. Was suspected had aspiration pneumonitis. He also suffered a seizure, neuro was consulted and felt no need for EEG. The Depakote level was low and was placed on IV depacon q 6Hand then given an additional 500mg dose the following day. No further seizure activity and patient was tolerating oral Keppra and depakote sprinkles. Continue meds and also seizure precautons and aspiration precautions. Patient now with [facility]. Pending Studies at Discharge: No Stand-Alone Forms: My [facility] Skilled Items Patient informed of condition?: Yes Discharge Level of Care: Skilled Communicable Disease: No Discharge Prognosis: Stable Lines: None Urinary Catheter: No Medications and DC Order Prescriptions: New budesonide 0.5 mg/2 mL Suspension For Nebulization 0.5 mg NEB BIDR Qty: 60 0RF Continued (DME) Briefs Medium Misc See Rx Instructions .ROUTE .MEDSUPPLY Qty: 100 5RF Rx Instructions: Medium Briefs diazepam [Diastat AcuDial] 5-7.5-10 mg kit 7.5 mg VA UD PRN (Reason: seizure activity) Qty: 1 0RF Rx Instructions: Give 1 dose rectally if seizure lasts longer than 5 minutes and call 911 Lubriderm Daily Moisture Lotion 1 applic topical BID Qty: 710 5RF (DME) Hospital Bed Misc See Rx Instructions .Route Qty: 1 0RF Rx Instructions: As directed divalproex 125 mg capsule, delayed rel sprinkle 750 mg PO BID 30 Days Qty: 360 8RF docusate sodium [Stool Softener] 100 mg capsule 100 mg PO DAILY PRN (Reason: constipation) Qty: 90 3RF levetiracetam [Keppra] 100 mg/mL solution 1,500 mg PO BID 3 Days Qty: 90 0RF (DME) CHAP STICK See Rx Instructions .Route .MEDSUPPLY Qty: 1 3RF Rx Instructions: As needed ketoconazole 2 % shampoo 1 applic TOPICAL 2XWK Qty: 120 5RF Rx Instructions: USE SHAMPOO TO SCALP EVERY TUESDAY AND TUESDAY alum-mag hydroxide-simeth [Antacid-Simethicone] 400-400-40 mg/5 mL suspension 30 ml PO Q4H PRN (Reason: UPSET STOMACH/VOMITING) Qty: 355 5RF Triple Antibiotic 3.5mg-400 unit- 5,000 unit/gram ointment 1 applic TOPICAL BID PRN (Reason: abrasions) Qty: 28.4 5RF acetaminophen 325 mg tablet 650 mg PO Q6H MDD 3 GRAMS APAP/24 HOURS PRN (Reason: Fever Or Pain) Qty: 30 5RF Rx Instructions: NEEDED FOR HEADACHE/MINOR ACHES AND PAIN OR TEMPERATURE GREATER THAN 100 F pantoprazole [Protonix] 40 mg tablet,delayed release (DR/EC) 40 mg PO DAILY Qty: 90 3RF (DME) Manual Wheelchair Device See Rx Instructions .Route Qty: 1 0RF Rx Instructions: WHEELCHAIR REPAIRS [place] Saline Gel 1 applic topical BID Qty: 14.1 11RF polyethylene glycol 3350 17 gram/dose powder 17 g PO .COMPLEX Qty: 765 5RF Rx Instructions: 17 grams PO Every 3 days and as needed daily; if no bowel movement in 3 days loratadine [Claritin] 10 mg tablet 10 mg PO DAILY Qty: 90 3RF Debrox 6.5 % drops 2 drp OTB 3XWK Qty: 15 11RF Rx Instructions: TUES, THURS, & SAT. (DME) Manual Wheelchair Device See Rx Instructions .ROUTE .MEDSUPPLY Qty: 1 0RF Rx Instructions: As directed triamcinolone acetonide 0.1 % cream 1 applic TOPICAL BID PRN (Reason: rash) Qty: 30 1RF Rx Instructions: Do not apply in same spot for longer than two weeks. lorazepam 0.5 mg tablet 0.5 mg PO .COMPLEX Qty: 60 5RF Rx Instructions: 0.5 mg orally Take 1 tablet every AM and 2 tablets at Bedtime; clindamycin phosphate 1 % swab 1 applic topical DAILY Qty: 60 11RF loperamide [Imodium A-D] 2 mg capsule 2 mg PO UD MDD 4 DOSES/48 HOURS PRN (Reason: Diarrhea) Patient Comments: TAKE 2 TABLETS AT ONSET OF LOOSE STOOL THEN TAKE 1 TABLET AFTER EACH LOOSE BOWEL MOVEMENT. TAKE NO MORE THAN 4 DOSES IN 2 DAYS. Aquaphor Healing 41 % ointment 1 applic TOPICAL HS acetaminophen 650 mg Suppository 650 mg VA Q4H MDD 3 GRAMS APAP/24 HOURS PRN (Reason: PAIN/FEVER) hyoscyamine sulfate 0.125 mg Tablet, Sublingual 0.125 mg PO Q4H PRN (Reason: TERMINAL SECRETIONS) lorazepam 1 mg Tablet 0.5 mg PO Q4H PRN (Reason: RESTLESSNESS/INSOMNIA) Rx Instructions: MAY REPEAT IN 1 HR. IF NOT RELIEVED. lorazepam 1 mg Tablet 2 mg sublingual .Q15MIN MDD 6 TABS/EPISODE PRN (Reason: Seizure Activity) haloperidol lactate 2 mg/mL Concentrate 1 mg PO Q4H PRN (Reason: NAUSEA/VOMITING/ANXIETY) food supplemt, lactose-reduced Liquid 1 ea PO TIDM calcium carbonate-vitamin D3 [Oyster Shell Calcium-Vit D3] 500 mg-5 mcg (200 unit) Tablet 1 tab PO DAILY ondansetron 4 mg tablet,disintegrating 4 - 6 mg PO Q6H PRN (Reason: nausea and vomiting) clotrimazole 1 % cream 1 applic topical BID PRN (Reason: Rash) Saline Nasal 0.65 % aerosol,spray 1 spray INTRANASAL TID Rx Instructions: Instill 2 sprays TID into each nostril AND as needed for epistaxis or dry nares. morphine concentrate 100 mg/5 mL (20 mg/mL) solution 5 mg PO Q6H PRN (Reason: pain or air hunger) Qty: 15 0RF Rx Instructions: for hospice/palliative use (DME) nebulizers Misc See Rx Instructions .Route Qty: 1 0RF Rx Instructions: As directed ipratropium-albuterol 0.5 mg-3 mg(2.5 mg base)/3 mL Solution For Nebulization 3 ml NEB Q6H PRN (Reason: cough/wheeze/shortness of breath) Qty: 1 0RF Discontinued sertraline 50 mg tablet 50 mg PO QAM Qty: 90 3RF Discharge Orders: Discharge Order (Routine); Ordered 12/17/22 Ordered By: Chuyita Loaiza Admission Data Admit Date/Time: 12/07/22 18:51 Attending Provider: Noman Kelly Admit Provider: Doyle Thompson Primary Care Provider: Sofia Xie Other Providers: Doyle Thompson ; Eloise Napier ; Ede Bhakta Coding Level of Care Code 28805 INP/OBS DISCH >30 MIN Diagnoses Aspiration pneumonitis J69.0 Epilepsy G40.909 Nausea & vomiting R11.2 Vomiting type: unspecified Aspiration pneumonia J69.0 Cerebral palsy G80.9
== END 2022-12-17 15:48 | disposition hospice, home (50) | DRG 178 ==
LOC: ED 13:51 → 3N 18:51 → SUATTDRO 18:51 → 3N 21:24

== ENCOUNTER 2023-10-07 17:08 | Inpatient (IN) ==
--- NOTE | 2023-10-07 17:23 | ED Triage Note ---
Date of Service October 07, 2023 Provider in Triage Author: Lexii Art History of Present Illness This patient was briefly evaluated while in triage. An abbreviated physical exam was performed. This patient is a 63-year-old Male who presents to the ED for evaluation of persistent vomiting after eating. Caregiver believes he may have a food bolus. Hx of esophageal defect with food bolus. Physical Exam CONSTITUTIONAL: in no acute pain or distress, resting comfortably SKIN: pink, warm, dry CARDIAC: regular rate and rhythm RESPIRATORY: in no respiratory distress, lungs clear to auscultation ABDOMEN: no TTP MSK: 5/5 strength throughout NEURO: positive neuro deficits, at baseline. Initial orders for labs and / or imaging were placed and patient was placed in the waiting area until a bed is available. Please see further documentation for the full ED course.
--- NOTE | 2023-10-07 18:12 | Emergency Department Note ---
Impression & Plan Vomiting, Anemia, Fever, Tachycardia, Aspiration pneumonia ED Provider Note NAME: RAMIRO LAZAR AGE: 63 SEX: M : 1960 ARRIVES VIA: Walk-In INFORMANT: Patient, the patient's caregiver ED PROVIDER(S): Ramiro White DO CHIEF COMPLAINT: Vomiting HPI: The patient is a 63-year-old male who is on hospice who presented to the emergency department for vomiting. The patient has had similar episodes in the past but usually it resolves. The patient came with the caregiver. They tried to call the hospice doctor but they were told to go to the emergency department for further evaluation. There is been no rectal bleeding or black stool. The patient's been compliant with the medications otherwise. ROS: See above HPI for pertinent positives & negatives. A total of 10 systems reviewed and were otherwise negative. PAST MEDICAL HISTORY: See Below PAST SURGICAL HISTORY: See Below FAMILY HISTORY: See Below SOCIAL HISTORY: See Below HOME MEDICATIONS: See Below ALLERGIES: See Below VITALS: See Below PHYSICAL EXAMINATION: GENERAL: The patient is looking around the room but is listless and not able to follow commands. EYES: The conjunctivae are clear. The pupils are round and reactive. EARS, NOSE, MOUTH AND THROAT: The nose is without any evidence of any deformity. Mucous membranes are moist. NECK: The neck is nontender and supple. RESPIRATORY: Normal respiratory effort is noted there is no evidence of wheezing rhonchi or rales CARDIOVASCULAR: Regular rate and rhythm noted there no murmurs rubs or gallops normal S1 normal S2. GASTROINTESTINAL: The abdomen is soft. Abdomen is nontender. MUSCULOSKELETAL/EXTREMITIES: There is no evidence of gross deformity full range of motion is noted in the hips and shoulders. SKIN: There is no obvious evidence of any rash. Skin is pale and dry NEUROLOGIC: Patient is awake and looking around the room. The patient is contracted. MEDICAL DECISION MAKING: The patient is a 63-year-old male who presented to the emergency department for an evaluation after having episodes of emesis. The patient was found to have fever and tachycardia in the emergency department. I discussed patient's laboratory and radiographic studies with the caregiver. Given the patient's past medical history as well as current vital signs I do feel the patient may be a better candidate for inpatient management. The patient was treated with IV fluids. The patient was treated with IV antibiotics. Triage Nursing notes reviewed. Prior medical records reviewed Vital Signs: reviewed and remarkable for tachycardia. Differential diagnosis: Gastroenteritis, food borne illness, infections, appendicitis, diverticulitis, inflammatory bowel disease, obstruction, GI bleed, biliary pathology, volvulus, as well as other pathologies. ER treatment provided: See below Diagnostics interpreted by me: ECG: EKG was obtained in the emergency department. My interpretation is sinus tachycardia [address] segment abnormalities were noted. This was compared to a tracing from July 06, 2022. There is an increase in the rate otherwise no specific changes were noted. Cardiac Monitoring: An order was placed for continuous cardiac monitoring. The monitor shows a rate of 126 bpm with sinus tachycardia. Laboratory studies: As stated above and show below. Imaging studies: See below. Radiographic imaging was reviewed by myself Consultation(s): I discussed this case with Dr. López who is on-call for the [facility] hospitalist group. Past Med/Surg History Medical History Aspiration pneumonitis Palliative care encounter Aspiration into airway Pneumonia Acute dehydration Nausea & vomiting Atrial tachycardia Anemia Seizure Chronic periodontitis Ptosis, left eyelid Paraplegia History of prematurity Bladder carcinoma s/p TURBT 10/2021 Alternating exotropia Hyperlipidemia Mood disorder Chronic constipation PAD (peripheral artery disease) Dermatitis Cataracts, both eyes Severe intellectual disabilities Allergic rhinitis GERD (gastroesophageal reflux disease) Epilepsy Paroxysmal atrial tachycardia Cerebral palsy Scoliosis Spina bifida Aphasia Microcephaly Surgical History H/O transurethral destruction of bladder lesion 12/2021 History of removal of neck cyst Family History Other Family history non-contributory Social History Smoking Status: Never smoker Second Hand Exposure: No; Do You Dip or Chew Tobacco: No; Hx Alcohol Use: No Hx Substance Use: No Preferred Language: Romansh Communication Ability: Unable Communication Ability Comment: Pt is non verbal Visual 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 Limited Human Resource Adviser Required: No Beliefs That Will Affect Care: None marital status: Single Current Living Situation: [facility] Current Living Situation Comment: skills facility current occupational status: disabled Feels Safe at Home: Yes Diet: regular caffeine: Yes Dental Care, Regularly: Yes Assistive Devices: Wheelchair Allergies Allergies Allergy/AdvReac Type Severity Reaction Status Date / Time metoclopramide Allergy Intermediate Agitation Verified 03/21/23 09:31 Home Meds Previous Rx's Medication Instructions Recorded diaper,brief,adult,disposable #100 ea 03/19/20 (Briefs Medium) diazepam 5 mg-7.5 mg-10 mg rectal 7.5 mg MD UD PRN seizure activity 10/05/21 kit (Diastat AcuDial) #1 ea nebulizers #1 ea 07/13/22 CHAP STICK #1 ea 07/20/22 Wheelchair (Manual) (Manual #1 ea 10/26/22 Wheelchair) clindamycin phosphate 1 % topical 1 applic topical DAILY #60 ea 11/05/22 swab carbamide peroxide 6.5 % ear drops 2 drp OTB 3XWK #15 mL 12/14/22 (Debrox) budesonide 0.5 mg/2 mL suspension 0.5 mg (2 mL) NEB BIDR #60 mL 12/28/22 for nebulization clotrimazole 1 % topical cream 1 applic topical BID PRN Rash #30 12/28/22 grams emollient combination no.92 1 applic topical BID Dry skin #710 12/28/22 (Lubriderm Daily Moisture lotion) mL ipratropium 0.5 mg-albuterol 3 mg 3 ml NEB Q6H PRN 12/28/22 (2.5 mg base)/3 mL nebulization cough/wheeze/shortness of breath soln #1 box ketoconazole 2 % shampoo 1 applic topical 2XWK #120 mL 12/28/22 loperamide 2 mg capsule (Imodium 2 mg PO UD PRN Diarrhea #14 caps 12/28/22 A-D) morphine concentrate 100 mg/5 mL 10 mg (0.5 mL) PO Q2H PRN pain or 12/28/22 (20 mg/mL) oral solution air hunger #15 mL neomycin-bacitracn Zn-polymyx 3.5 1 applic topical BID PRN abrasions 12/28/22 mg-400 unit-5,000 unit/gram top #28.4 grams oint (Triple Antibiotic) triamcinolone acetonide 0.1 % 1 applic topical BID PRN rash #30 12/28/22 topical cream grams polyethylene glycol 3350 17 17 g PO DAILY constipation 30 days 01/27/23 gram/dose oral powder #510 grams levetiracetam 750 mg tablet 1,500 mg (2 x 750 mg) PO BID 90 03/22/23 (Keppra) days #360 tabs loratadine 10 mg tablet (Claritin) 10 mg PO DAILY allergies #90 tabs 03/22/23 aluminum-mag hydroxide-simethicone 30 ml PO Q4H PRN UPSET 04/12/23 400 mg-400 mg-40 mg/5 mL oral susp STOMACH/VOMITING #355 mL (Antacid-Simethicone) ondansetron 4 mg disintegrating 4 mg PO Q6H PRN nausea and 04/12/23 tablet vomiting #30 tabs calcium carbonate 500 mg-vitamin 1 tab PO DAILY 30 days #30 tabs 04/13/23 D3 5 mcg (200 unit) tablet (Oyster Shell Calcium-Vitamin D3) pantoprazole 40 mg tablet,delayed 40 mg PO DAILY #90 tabs 04/20/23 release (Protonix) acetaminophen 325 mg tablet 650 mg (2 x 325 mg) PO Q6H PRN 04/22/23 Fever Or Pain #90 tabs azithromycin 250 mg tablet See Rx Instructions PO .COMPLEX #6 04/24/23 tabs docusate sodium 100 mg capsule 100 mg PO DAILY constipation #90 06/21/23 (Stool Softener) caps lorazepam 0.5 mg tablet 0.5 mg PO .COMPLEX #15 tabs 07/04/23 lorazepam 1 mg tablet 1 mg PO HS #15 tabs 07/04/23 divalproex 125 mg capsule,delayed 750 mg (6 x 125 mg) PO BID #180 07/27/23 release sprinkle caps white petrolatum 41 % topical 1 applic topical HS #20 grams 08/01/23 ointment (Aquaphor Healing) Results & Data (ED) Vital Signs Vital Signs - 24 hr 10/07/23 17:18 10/07/23 21:00 Temperature 36.8 C Temperature Source Temporal Artery Scan Pulse Rate 133 H 126 H Respiratory Rate 20 Respiratory Effort / Characteristics Non-Labored Spontaneous Respiratory Depth Normal Blood Pressure 129/80 Blood Pressure Mean 96 Blood Pressure Position Sitting Pulse Oximetry 100 Oxygen Delivery Method Room Air Sepsis Recent Fever Within 48 Hours No Sepsis New/Unexplained Change in Mental Status No Sepsis Action Taken by Nursing No Action Required Home Medications Current Medication List: was personally reviewed by me Laboratory Data Attestation: I reviewed the patient's lab results. 10/07/23 18:35 10/07/23 18:35 Lab Results 10/07/23 10/07/23 Range/Units 18:35 20:11 WBC 10.11 (4.8-10.8) K/ul RBC 3.11 L (4.70-6.10) M/uL Hgb 7.3 L (14.0-18.0) g/dl Hct 26.7 L (42.0-52.0) % MCV 85.9 (80.0-100.0) fL MCH 23.5 L (25.0-34.0) pg MCHC 27.3 L (32.0-36.0) g/dL RDW Std Deviation 55.8 H (36.4-46.3) fL RDW Coeff of [place] 18.0 H (11.5-14.5) % Plt Count 354 (130-400) K/uL MPV 10.6 (9.4-12.4) fL Immature Gran % (Auto) 0.3 % Neut % (Auto) 54.4 % Lymph % (Auto) 30.7 % Gaines % (Auto) 14.3 % Eos % (Auto) 0.1 % Baso % (Auto) 0.2 % Neut # (Auto) 5.50 (1.40-6.50) K/uL Lymph # (Auto) 3.10 (1.20-3.40) K/uL Gaines # (Auto) 1.45 H (0.11-0.59) K/uL Eos # (Auto) 0.01 (0.00-0.50) K/uL Baso # (Auto) 0.02 (0.00-0.20) K/uL Immature Gran # (Auto) 0.03 (0.01-0.20) K/uL Hypochromasia Present Ovalocytes 1+ Sodium 144 (136-145) mmol/L Potassium 4.0 (3.5-5.1) mmol/L Chloride 112 H (98-107) mmol/L Carbon Dioxide 24 (21-32) mmol/L Anion Gap 8 (3-11) BUN 21 (6-23) mg/dl Creatinine 0.52 L (0.6-1.4) mg/dl Est Cr Clr Drug Dosing Not Reportable Est GFR ( Amer) 133.4 ml/min Est GFR (Non-Af Amer) 115.1 ml/min BUN/Creatinine Ratio 40.4 H (10-20) Glucose 114 H (70-99(Fasting)) mg/dl Calcium 9.6 (8.6-10.3) mg/dl Total Bilirubin 0.4 (0.2-1.0) mg/dl AST 16 (13-39) U/L ALT 5 L (7-52) U/L Alkaline Phosphatase 67 (34-104) U/L Troponin I High Sens 7.6 (0-20) pg/ml C-Reactive Protein 4.13 H (0-0.5) mg/dl Total Protein 6.3 (6.0-8.3) gm/dl Albumin 3.1 L (3.4-5.0) gm/dl Globulin 3.2 (2.5-4.0) gm/dl Albumin/Globulin Ratio 1.0 (0.9-2) Blood Type O Positive Antibody Screen NEGATIVE Administered Medications Discontinued Medications Pantoprazole Sodium 40 mg/ (Syringe) 10 mls @ 5 mls/min IV NOW ONE Stop: 10/07/23 19:53 Last Admin: 10/07/23 20:34 Dose: 5 mls/min Documented By: LUAN Famotidine (Pepcid 20mg Iv Push) 20 mg in 5 mls @ 2.5 mls/min IV NOW STA Stop: 10/07/23 19:53 Last Admin: 10/07/23 20:18 Dose: 2.5 mls/min Documented By: LUAN Acetaminophen (Ofirmev) 1,000 mg in 100 mls @ 400 mls/hr IV NOW STA Stop: 10/07/23 20:53 Last Infusion: 10/07/23 21:33 Dose: Infused Documented By: Admin: 10/07/23 20:53 Dose: 400 mls/hr Documented By: LUAN Imaging Data Attestation: I personally reviewed and interpreted this imaging study as follows: My Impression: 1 view chest x-ray was obtained in the emergency department. My interpretation is no free air, increased markings at the right base, final report below. CT of the chest abdomen pelvis was obtained in the emergency department. My interpretation is infiltrate noted at the right base, no free air or bowel obstruction, final report below. Radiologist's Impression: Chest X-Ray 10/07/23 17:23 XR chest 1V portable CLINICAL HISTORY: concern for aspiration TECHNIQUE: Single frontal radiograph of the chest was obtained. Comparison: Comparison is made to CT chest 12/09/2022 FINDINGS: No lines and tubes are seen. Cardiomegaly is noted. Reticular interstitial opacities are seen. No evidence of pleural effusion or pneumothorax. IMPRESSION: No airspace opacity to suggest aspiration. ACT 112: Negative or not required by law. Electronically signed by: Dylan Figueredo M.D. 10/07/2023 6:58 PM Abdomen/Pelvis CT 10/07/23 19:45 Exam(s): CT ABDOMEN + PELVIS Without Contrast EXAM: CT Abdomen and Pelvis Without Intravenous Contrast CLINICAL HISTORY: Reason for exam: vomiting. TECHNIQUE: Axial computed tomography images of the abdomen and pelvis without intravenous contrast. CTDI is 12.62 mGy and DLP is 590.72 mGy-cm. Automated exposure control was utilized for the study. A dose lowering technique was utilized adhering to the principles of ALARA. COMPARISON: CT abdomen and pelvis 05/02/22 FINDINGS: There are tree-in-bud opacities at the bilateral lung bases, right worse than left. There is small hiatal hernia with wall thickening distal esophagus. Unenhanced appearance of the liver, gallbladder, spleen, pancreas, and adrenal glands is unremarkable. Kidneys are similar in size and contour, without hydronephrosis. There is a punctate nonobstructing right kidney lower pole stone. There is no aortic aneurysm. There is no adenopathy, free fluid, or free air. Appendix is not visualized. There is no bowel obstruction or inflammation. There is a stable density along the inferior aspect of the cecum measuring 2.8 cm. Prostate is normal in size. Urinary bladder wall is thickened. There is a small left-sided bladder diverticulum. Hips appear dysplastic bilaterally. There are no acute fractures. There is levoscoliosis of the lumbar spine. IMPRESSION: 1. Bladder wall thickening is similar to prior CT and may reflect chronic bladder outlet obstruction. Correlate with urinalysis to exclude cystitis. 2. Punctate nonobstructing right kidney stone. No hydronephrosis. 3. Small hiatal hernia. Distal esophageal wall thickening suggesting esophagitis. 4. Tree-in-bud opacities at the lung bases, right greater than left, suggesting aspiration or pneumonia. 5. Stable density along the inferior aspect of the cecum measuring 2.8 cm, identity uncertain, potentially undescended right testis. Electronically signed by: Clarence Jerry M.D. 10/07/23 21:[address] 10/07/23 19:45 Exam(s): CT CHEST Without Contrast EXAM: CT Chest Without Intravenous Contrast CLINICAL HISTORY: Reason for exam: vomiting. TECHNIQUE: Axial computed tomography images of the chest without intravenous contrast. CTDI is 12.62 mGy and DLP is 590.72 mGy-cm. Automated exposure control was utilized for the study. A dose lowering technique was utilized adhering to the principles of ALARA. COMPARISON: No relevant prior studies available. FINDINGS: Lungs: There are widespread tree-in-bud opacities throughout the right upper, right middle, right lower lobe, with additional tree-in-bud opacities in the left lower lobe. Pleural space: Unremarkable. No pleural effusion or pneumothorax. Heart: Coronary artery atherosclerosis. No cardiomegaly or pericardial effusion. Bones/joints: Unremarkable. No acute fracture. No dislocation. Soft tissues: Unremarkable. Vasculature: No thoracic aortic aneurysm. Normal caliber main pulmonary artery. Lymph nodes: Unremarkable. No enlarged lymph nodes. IMPRESSION: Bilateral tree-in-bud opacities, extensive within the right lung. Consider infectious bronchiolitis, bronchopneumonia, or aspiration. Electronically signed by: Clarence Jerry M.D. 10/07/23 20:49 PM [address] Tissue [address] 10/07/23 19:45 Exam(s): CT NECK Without Contrast EXAM: CT Neck Without Intravenous Contrast CLINICAL HISTORY: Reason for exam: vomiting. TECHNIQUE: Axial computed tomography images of the neck without intravenous contrast. CTDI is 12.62 mGy and DLP is 590.72 mGy-cm. Automated exposure control was utilized for the study. A dose lowering technique was utilized adhering to the principles of ALARA. COMPARISON: No relevant prior studies available. FINDINGS: Oropharynx: Unremarkable. No significant tonsillar enlargement. Hypopharynx: Unremarkable. Larynx: Unremarkable. Normal epiglottis. Trachea: Unremarkable. Retropharyngeal space: Unremarkable. Submandibular/parotid glands: Unremarkable. Glands are normal in size. Thyroid: Unremarkable. No enlarged or calcified nodules. Bones/joints: Degenerative changes in the cervical spine. No acute osseous findings. Soft tissues: Unremarkable. Vasculature: No acute findings. Lymph nodes: Unremarkable. No lymphadenopathy. Lung apices: Tree-in-bud opacities throughout the visualized right lung. IMPRESSION: 1. Tree-in-bud opacities throughout the visualized right lung. Consider infectious bronchiolitis, bronchopneumonia, or aspiration. Electronically signed by: Clarence Jerry M.D. 10/07/23 20:47 PM Discharge Plan Visit Data Chief Complaint: Vomiting Stated Complaint: VOMITING/ON HOSPICE ED Provider: Ramiro White Discharge Problem: Vomiting, Anemia, Fever, Tachycardia, Aspiration pneumonia Patient Disposition: Being Evaluated by Hospitalist Forms Stand Alone Forms: [facility] Prescriptions Prescriptions: No Action (DME) Briefs Medium Misc See Rx Instructions .ROUTE .MEDSUPPLY Qty: 100 5RF Rx Instructions: Medium Briefs diazepam [Diastat AcuDial] 5-7.5-10 mg kit 7.5 mg MD UD PRN (Reason: seizure activity) Qty: 1 0RF Rx Instructions: Give 1 dose rectally if seizure lasts longer than 5 minutes and call 911 (DME) CHAP STICK See Rx Instructions .Route .MEDSUPPLY Qty: 1 3RF Rx Instructions: As needed (DME) Manual Wheelchair Device See Rx Instructions .Route Qty: 1 0RF Rx Instructions: WHEELCHAIR REPAIRS Debrox 6.5 % drops 2 drp OTB 3XWK Qty: 15 11RF Rx Instructions: TUES, THURS, & SAT. morphine concentrate 100 mg/5 mL (20 mg/mL) solution 10 mg PO Q2H PRN (Reason: pain or air hunger) Qty: 15 0RF Rx Instructions: for hospice/palliative use budesonide 0.5 mg/2 mL suspension for nebulization 0.5 mg NEB BIDR Qty: 60 12RF clotrimazole 1 % cream 1 applic topical BID PRN (Reason: Rash) Qty: 30 12RF Lubriderm Daily Moisture Lotion 1 applic topical BID Qty: 710 12RF ipratropium-albuterol 0.5 mg-3 mg(2.5 mg base)/3 mL solution for nebulization 3 ml NEB Q6H PRN (Reason: cough/wheeze/shortness of breath) Qty: 1 12RF ketoconazole 2 % shampoo 1 applic TOPICAL 2XWK Qty: 120 12RF Rx Instructions: USE SHAMPOO TO SCALP EVERY TUESDAY AND TUESDAY loperamide [Imodium A-D] 2 mg capsule 2 mg PO UD MDD 4 DOSES/48 HOURS PRN (Reason: Diarrhea) Qty: 14 12RF Triple Antibiotic 3.5mg-400 unit- 5,000 unit/gram ointment 1 applic TOPICAL BID PRN (Reason: abrasions) Qty: 28.4 12RF triamcinolone acetonide 0.1 % cream 1 applic TOPICAL BID PRN (Reason: rash) Qty: 30 6RF Rx Instructions: Do not apply in same spot for longer than two weeks. polyethylene glycol 3350 17 gram/dose powder 17 g PO DAILY 30 Days Qty: 510 11RF Rx Instructions: Administer in 8 oz. fluid. levetiracetam [Keppra] 750 mg tablet 1,500 mg PO BID 90 Days Qty: 360 3RF Rx Instructions: Can be crushed and given with applesauce. loratadine [Claritin] 10 mg tablet 10 mg PO DAILY Qty: 90 3RF Rx Instructions: Can be crushed and given with applesauce. ondansetron 4 mg tablet,disintegrating 4 mg PO Q6H PRN (Reason: nausea and vomiting) Qty: 30 12RF Rx Instructions: can be crushed and given with applesauce alum-mag hydroxide-simeth [Antacid-Simethicone] 400-400-40 mg/5 mL suspension 30 ml PO Q4H PRN (Reason: UPSET STOMACH/VOMITING) Qty: 355 12RF Rx Instructions: can be crushed and given in applesauce calcium carbonate-vitamin D3 [Oyster Shell Calcium-Vit D3] 500 mg-5 mcg (200 unit) tablet 1 tab PO DAILY 30 Days Qty: 30 5RF Rx Instructions: May Crush in Apple Sauce acetaminophen 325 mg tablet 650 mg PO Q6H MDD 3 GRAMS APAP/24 HOURS PRN (Reason: Fever Or Pain) Qty: 90 3RF Rx Instructions: NEEDED FOR HEADACHE/MINOR ACHES AND PAIN OR TEMPERATURE GREATER THAN 100 F. CAN BE CRUSHED AND GIVEN IN APPLESAUCE. azithromycin 250 mg tablet See Rx Instructions PO .COMPLEX Qty: 6 0RF Rx Instructions: For 250 mg dose pack: take 500 mg today (day 1), then 250 mg for 4 days (days 2-5) PO.. not to take zofran while on docusate sodium [Stool Softener] 100 mg capsule 100 mg PO DAILY Qty: 90 3RF lorazepam 0.5 mg tablet 0.5 mg PO .COMPLEX Qty: 15 5RF Rx Instructions: 0.5 mg orally Take 1 tablet every AM; Can be crushed and given with applesauce lorazepam 1 mg tablet 1 mg PO HS Qty: 15 5RF Rx Instructions: 1mg orally at bedtime; can be crushed in applesauce divalproex 125 mg capsule, delayed rel sprinkle 750 mg PO BID Qty: 180 12RF Aquaphor Healing 41 % ointment 1 applic TOPICAL HS Qty: 20 12RF pantoprazole [Protonix] 40 mg tablet,delayed release (DR/EC) 40 mg PO DAILY Qty: 90 3RF clindamycin phosphate 1 % swab 1 applic topical DAILY Qty: 60 11RF (DME) nebulizers Misc See Rx Instructions .Route Qty: 1 0RF Rx Instructions: As directed Referrals Referrals: Sofia Xie MD [Primary Care Provider] - Discharge Problem: Vomiting Qualifiers: Vomiting type: unspecified Nausea presence: unspecified Qualified Code(s): R 11.10 - Vomiting, unspecified Anemia Qualifiers: Anemia type: unspecified type Qualified Code(s): D64.9 - Anemia, unspecified Fever Qualifiers: Fever type: unspecified Qualified Code(s): R50.9 - Fever, unspecified Aspiration pneumonia Qualifiers: Aspiration pneumonia type: unspecified Laterality: right Lung location: lower lobe of lung Qualified Code(s): J69.0 - Pneumonitis due to inhalation of food and vomit
--- NOTE | 2023-10-07 19:00 | XRay Report ---
XR chest 1V portable CLINICAL HISTORY: concern for aspiration TECHNIQUE: Single frontal radiograph of the chest was obtained. Comparison: Comparison is made to CT chest 12/09/2022 FINDINGS: No lines and tubes are seen. Cardiomegaly is noted. Reticular interstitial opacities are seen. No michael dence of pleural effusion or pneumothorax. IMPRESSION: No airspace opacity to suggest aspiration. ACT 112: Negative or not required by law. Electronically signed by: Dylan Figueredo M.D. 10/07/2023 6:58 PM
[2023-10-07 19:26] LABS: Hematocrit (blood only) 26.7 % (42.0-52.0); Hemoglobin 7.3 g/dl (14.0-18.0); Mean Corpuscular Hemoglobin 23.5 pg (25.0-34.0); Mean Corpuscular Hgb Conc 27.3 g/dL (32.0-36.0); Mean Corpuscular Volume 85.9 fL (80.0-100.0); Mean Platelet Volume 10.6 fL (9.4-12.4); Platelet Count 354 K/uL (130-400); RDW Standard Deviation 55.8 fL (36.4-46.3); Red Blood Count 3.11 M/uL (4.70-6.10); White Blood Count 10.11 K/ul (4.8-10.8)
[2023-10-07 19:27] LABS: Basophils # (auto) 0.02 K/uL (0.00-0.20); Basophils % (auto) 0.2 %; Eosinophils # (auto) 0.01 K/uL (0.00-0.50); Eosinophils % (auto) 0.1 %; Hypochromasia Present; Immature Granulocytes # (auto) 0.03 K/uL (0.01-0.20); Immature Granulocytes % (auto) 0.3 %; Lymphocytes % (auto) 30.7 %; Monocytes # (auto) 1.45 K/uL (0.11-0.59); Monocytes % (auto) 14.3 %; Neutrophils % (auto) 54.4 %; Ovalocytes 1+
[2023-10-07 19:33] LABS: Alanine Aminotransferase 5 U/L (7-52); Albumin Level 3.1 gm/dl (3.4-5.0); Alkaline Phosphatase 67 U/L (34-104); Anion Gap 8 (3-11); Aspartate Aminotransferase 16 U/L (13-39); BUN Creatinine Ratio 40.4 (10-20); Bilirubin,Total 0.4 mg/dl (0.2-1.0); Blood Urea Nitrogen 21 mg/dl (6-23); Calcium 9.6 mg/dl (8.6-10.3); Carbon Dioxide 24 mmol/L (21-32); Chloride 112 mmol/L (98-107); Est GFR (African American) 133.4 ml/min; Est GFR (Non-African American) 115.1 ml/min; Globulin 3.2 gm/dl (2.5-4.0); Glucose 114 mg/dl (70-99(Fasting)); Sodium 144 mmol/L (136-145); Total Protein 6.3 gm/dl (6.0-8.3)
[2023-10-07 19:39] LABS: Troponin I High Sensitivity 7.6 pg/ml (0-20)
[2023-10-07] MEDS: FAMOTIDINE 20MG IV PUSH 20 MG/5 ML SYR IV STA (20:18)
[2023-10-07] MEDS: PANTOprazole 40 MG in SYRINGE 0 ML IV ONE (20:34)
--- NOTE | 2023-10-07 20:48 | CT Scan Report ---
Exam(s): CT NECK Without Contrast EXAM: CT Neck Without Intravenous Contrast CLINICAL HISTORY: Reason for exam: vomiting. TECHNIQUE: Axial computed tomography images of the neck without intravenous contrast. CTDI is 12.62 mGy and DLP is 590.72 mGy-cm. Automated exposure control was utilized for the study. A dose lowering technique was utilized adhering to the principles of ALARA. COMPARISON: No relevant prior studies available. FINDINGS: Oropharynx: Unremarkable. No significant tonsillar enlargement. Hypopharynx: Unremarkable. Larynx: Unremarkable. Normal epiglottis. Trachea: Unremarkable. Retropharyngeal space: Unremarkable. Submandibular/parotid glands: Unremarkable. Glands are normal in size. Thyroid: Unremarkable. No enlarged or calcified nodules. Bones/joints: Degenerative changes in the cervical spine. No acute osseous findings. Soft tissues: Unremarkable. Vasculature: No acute findings. Lymph nodes: Unremarkable. No lymphadenopathy. Lung apices: Tree-in-bud opacities throughout the visualized right lung. IMPRESSION: 1. Tree-in-bud opacities throughout the visualized right lung. Consider infectious bronchiolitis, bronchopneumonia, or aspiration. Electronically signed by: Clarence Jerry M.D. 10/07/23 20:47 PM
--- NOTE | 2023-10-07 20:50 | CT Scan Report ---
Exam(s): CT CHEST Without Contrast EXAM: CT Chest Without Intravenous Contrast CLINICAL HISTORY: Reason for exam: vomiting. TECHNIQUE: Axial computed tomography images of the chest without intravenous contrast. CTDI is 12.62 mGy and DLP is 590.72 mGy-cm. Automated exposure control was utilized for the study. A dose lowering technique was utilized adhering to the principles of ALARA. COMPARISON: No relevant prior studies available. FINDINGS: Lungs: There are widespread tree-in-bud opacities throughout the right upper, right middle, right lower lobe, with additional tree-in-bud opacities in the left lower lobe. Pleural space: Unremarkable. No pleural effusion or pneumothorax. Heart: Coronary artery atherosclerosis. No cardiomegaly or pericardial effusion. Bones/joints: Unremarkable. No acute fracture. No dislocation. Soft tissues: Unremarkable. Vasculature: No thoracic aortic aneurysm. Normal caliber main pulmonary artery. Lymph nodes: Unremarkable. No enlarged lymph nodes. IMPRESSION: Bilateral tree-in-bud opacities, extensive within the right lung. Consider infectious bronchiolitis, bronchopneumonia, or aspiration. Electronically signed by: Clarence Jerry M.D. 10/07/23 20:49 PM
[2023-10-07] MEDS: ACETAMINOPHEN 1,000 MG/100 ML VIAL IV STA (20:53)
[2023-10-07 21:05] LABS: C Reactive Protein 4.13 mg/dl (0-0.5)
--- NOTE | 2023-10-07 21:32 | CT Scan Report ---
Exam(s): CT ABDOMEN + PELVIS Without Contrast EXAM: CT Abdomen and Pelvis Without Intravenous Contrast CLINICAL HISTORY: Reason for exam: vomiting. TECHNIQUE: Axial computed tomography images of the abdomen and pelvis without intravenous contrast. CTDI is 12.62 mGy and DLP is 590.72 mGy-cm. Automated exposure control was utilized for the study. A dose lowering technique was utilized adhering to the principles of ALARA. COMPARISON: CT abdomen and pelvis 05/02/22 FINDINGS: There are tree-in-bud opacities at the bilateral lung bases, right worse than left. There is small hiatal hernia with wall thickening distal esophagus. Unenhanced appearance of the liver, gallbladder, spleen, pancreas, and adrenal glands is unremarkable. Kidneys are similar in size and contour, without hydronephrosis. There is a punctate nonobstructing right kidney lower pole stone. There is no aortic aneurysm. There is no adenopathy, free fluid, or free air. Appendix is not visualized. There is no bowel obstruction or inflammation. There is a stable density along the inferior aspect of the cecum measuring 2.8 cm. Prostate is normal in size. Urinary bladder wall is thickened. There is a small left-sided bladder diverticulum. Hips appear dysplastic bilaterally. There are no acute fractures. There is levoscoliosis of the lumbar spine. IMPRESSION: 1. Bladder wall thickening is similar to prior CT and may reflect chronic bladder outlet obstruction. Correlate with urinalysis to exclude cystitis. 2. Punctate nonobstructing right kidney stone. No hydronephrosis. 3. Small hiatal hernia. Distal esophageal wall thickening suggesting esophagitis. 4. Tree-in-bud opacities at the lung bases, right greater than left, suggesting aspiration or pneumonia. 5. Stable density along the inferior aspect of the cecum measuring 2.8 cm, identity uncertain, potentially undescended right testis. Electronically signed by: Clarence Jerry M.D. 10/07/23 21:31 PM
[2023-10-07] MEDS: cefTRIAXone SODIUM 2,000 MG/50 ML BAG IV STA (21:48)
[2023-10-07] MEDS: SODIUM CHLORIDE 0.9% 1,000 ML IV ONE (21:49)
[2023-10-07 22:03] LABS: Adenovirus PCR Not Detected (NotDetected); Bordetella parapertussis PCR Not Detected (NotDetected); Bordetella pertussis PCR Not Detected (NotDetected); Chlamydia pneumoniae PCR Not Detected (NotDetected); Coronavirus 229E PCR Not Detected (NotDetected); Coronavirus CoV-2 (COVID19)PCR Not Detected (NotDetected); Coronavirus HKU1 PCR Not Detected (NotDetected); Coronavirus NL63 PCR Not Detected (NotDetected); Coronavirus OC43PCR Not Detected (NotDetected); Human Metapneumovirus PCR Not Detected (NotDetected); Influenza A PCR Not Detected (NotDetected); Influenza B PCR Not Detected (NotDetected); Mycoplasma pneumoniae PCR Not Detected (NotDetected); Parainfluenza Virus 1 PCR Not Detected (NotDetected); Parainfluenza Virus 2 PCR Not Detected (NotDetected); Parainfluenza Virus 3 PCR Not Detected (NotDetected); Parainfluenza Virus 4 PCR Not Detected (NotDetected); Respiratory Syncytial VirusPCR Not Detected (NotDetected); Rhinovirus/Enterovirus PCR Not Detected (NotDetected)
--- NOTE | 2023-10-07 22:21 | History & Physical Report ---
Date of Service October 07, 2023 Assessment & Plan (1) Vomiting: Plan: Concern for UGIB given report of dark/black material. Patient also with decrease in his hemoglobin from prior -Admit to medical with telemetry -Protonix 40mg IV BID -NPO -GI consultation appreciated (2) Aspiration pneumonia: Plan: Patient with chronic aspiration -Aspiration precautions -Zosyn -Supplemental O2 as needed (3) Cerebral palsy: Plan: Patient with Cerebral Palsy, Seizure disorder. 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 He is enrolled in Hospice and has orders for Hospice/End of life medications. Hospice was contacted this evening and made aware of patient's current condition and instructed caregivers to bring him to the hospital. Patient's Guardian is Allie - numbers listed above. Should be contacted in AM to clarify goals of care and how aggressively we wish to treat Mr. Wang during his hospitalization to best comply with his wishes. History of Present Illness Chief Complaint: Vomiting Primary Care Provider: Sofia Xie MD Donny Wang is a 63yo male with history of Cerebral palsy, Seizures, GERD and P AD presenting from [facility] with report of vomiting. History is obtained from caregiver at bedside. She reports that patient frequently gags and vomits with meals and after medications but has been vomiting more over the last several days. On 10/05/23 evening he was unable to take his medications due to vomiting. He was given Promethazine gel and Ativan. On 10/06/23 he ate well at breakfast and got up and got dressed. At 13:45 he had a large episode of vomiting. His emesis was black in color and appeared like jelly. Later in the evening he swallowed his medications but vomited shortly after. On 10/07/23 he took his morning medications without difficulty then had a bite of food for lunch and vomited again. His caregiver states that he never vomits his food or liquid that he takes in but the vomitus is always dark/black in color and appears like jelly and is sweet smelling. Patient is unable to endorse any complaints. Caregiver denies fever, chills, diarrhea. Patient has had history of food bolus in the past which resolved spontaneously In the ER he is afebrile, tachycardic on arrival with HR of 126. Blood pressure borderline low at 98/63 Patient is on hospice. 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 POC Allie (guardian) [phone] OR [phone] ER Course: Pepcid 20mg IV Protonix 40mg IV Tylenol 1gm IV Ceftriaxone 2gm IV NSS x 1L Zosyn 4.5gm Allergies Allergy/AdvReac Type Severity Reaction Status Date / Time metoclopramide Allergy Intermediate Agitation Verified 03/21/23 09:31 Home Medications Medication Instructions Recorded Confirmed Type diaper,brief,adult,disposable #100 ea 03/19/20 10/07/23 Rx (Briefs Medium) diazepam 5 mg-7.5 mg-10 mg rectal 7.5 mg ME UD PRN seizure activity 10/05/21 10/07/23 Rx kit (Diastat AcuDial) #1 ea nebulizers #1 ea 07/13/22 10/07/23 Rx CHAP STICK #1 ea 07/20/22 10/07/23 Rx Wheelchair (Manual) (Manual #1 ea 10/26/22 10/07/23 Rx Wheelchair) clindamycin phosphate 1 % topical 1 applic topical DAILY #60 ea 11/05/22 10/07/23 Rx swab carbamide peroxide 6.5 % ear drops 2 drp OTB 3XWK #15 mL 12/14/22 10/07/23 Rx (Debrox) budesonide 0.5 mg/2 mL suspension 0.5 mg (2 mL) NEB BIDR #60 mL 12/28/22 10/07/23 Rx for nebulization clotrimazole 1 % topical cream 1 applic topical BID PRN Rash #30 12/28/22 10/07/23 Rx grams ketoconazole 2 % shampoo 1 applic topical 2XWK #120 mL 12/28/22 10/07/23 Rx loperamide 2 mg capsule (Imodium 2 mg PO UD PRN Diarrhea #14 caps 12/28/22 10/07/23 Rx A-D) neomycin-bacitracn Zn-polymyx 3.5 1 applic topical BID PRN abrasions 12/28/22 10/07/23 Rx mg-400 unit-5,000 unit/gram top #28.4 grams oint (Triple Antibiotic) triamcinolone acetonide 0.1 % 1 applic topical BID PRN rash #30 12/28/22 10/07/23 Rx topical cream grams polyethylene glycol 3350 17 17 g PO DAILY constipation 30 days 01/27/23 10/07/23 Rx gram/dose oral powder #510 grams levetiracetam 750 mg tablet 1,500 mg (2 x 750 mg) PO BID 90 03/22/23 10/07/23 Rx (Keppra) days #360 tabs loratadine 10 mg tablet (Claritin) 10 mg PO DAILY allergies #90 tabs 03/22/23 10/07/23 Rx aluminum-mag hydroxide-simethicone 30 ml PO Q4H PRN UPSET 04/12/23 10/07/23 Rx 400 mg-400 mg-40 mg/5 mL oral susp STOMACH/VOMITING #355 mL (Antacid-Simethicone) calcium carbonate 500 mg-vitamin 1 tab PO DAILY 30 days #30 tabs 04/13/23 10/07/23 Rx D3 5 mcg (200 unit) tablet (Oyster Shell Calcium-Vitamin D3) pantoprazole 40 mg tablet,delayed 40 mg PO DAILY #90 tabs 04/20/23 10/07/23 Rx release (Protonix) acetaminophen 325 mg tablet 650 mg (2 x 325 mg) PO Q6H PRN 04/22/23 10/07/23 Rx Fever Or Pain #90 tabs docusate sodium 100 mg capsule 100 mg PO DAILY constipation #90 06/21/23 10/07/23 Rx (Stool Softener) caps lorazepam 1 mg tablet 1 mg PO HS #15 tabs 07/04/23 10/07/23 Rx divalproex 125 mg capsule,delayed 750 mg (6 x 125 mg) PO BID #180 07/27/23 10/07/23 Rx release sprinkle caps Promethazine Gel 25mg/Ml 1 ml topical Q6 PRN Nausea And 10/07/23 10/07/23 History Vomiting atropine 1 % eye drops 2 drp sublingual .EVERY 1 HOUR PRN 10/07/23 10/07/23 History terminal secretions bisacodyl 10 mg rectal suppository 10 mg ME .EVERY 3 DAYS PRN no BM 10/07/23 10/07/23 History for constipation emollient combination no.92 1 applic topical BID 10/07/23 10/07/23 History (Lubriderm Daily Moisture lotion) food supplemt, lactose-reduced 1 ea PO BID 10/07/23 10/07/23 History ipratropium 0.5 mg-albuterol 3 mg 3 ml NEB DAILY PRN Shortness Of 10/07/23 10/07/23 History (2.5 mg base)/3 mL nebulization Breath soln lorazepam 0.5 mg tablet 0.5 mg PO QAM 10/07/23 10/07/23 History lorazepam 2 mg/mL oral concentrate 1 mg sublingual Q4 PRN Anxiety 10/07/23 10/07/23 History morphine concentrate 100 mg/5 mL 10 mg PO Q2H PRN Respiratory 10/07/23 10/07/23 History (20 mg/mL) oral solution Distress ondansetron 4 mg disintegrating 6 mg PO Q6H PRN nausea and vomiting 10/07/23 10/07/23 History tablet phenylephrine 0.25 %-mineral oil 1 applic ME QID PRN hemorroidal 10/07/23 10/07/23 History 14 %-petrolatm 74.9 % rectal irritation ointment (Preparation H) sodium chloride 0.65 % nasal spray 1 spray intranasal TID PRN Dry 10/07/23 10/07/23 History aerosol (Saline Mist) Nasal Passages sodium chloride-aloe vera nasal 1 spray intranasal BID 10/07/23 10/07/23 History spray (Dana Saline Gel nasal spray) sodium phosphates 19 gram-7 118 ml ME DAILY PRN on day 4 of no 10/07/23 10/07/23 History gram/118 mL enema ([id number]-Apu BM Enema) sunscreen SPF 65 lotion (Total 1 ea topical UD PRN Sun Exposure 10/07/23 10/07/23 History Block Clear) white petrolatum 41 % topical 1 applic topical HS 10/07/23 10/07/23 History ointment (Aquaphor Healing) Past Med/Surg History Medical History Aspiration pneumonitis Palliative care encounter Aspiration into airway Pneumonia Acute dehydration Nausea & vomiting Atrial tachycardia Anemia Seizure Chronic periodontitis Ptosis, left eyelid Paraplegia History of prematurity Bladder carcinoma s/p TURBT 10/2021 Alternating exotropia Hyperlipidemia Mood disorder Chronic constipation PAD (peripheral artery disease) Dermatitis Cataracts, both eyes Severe intellectual disabilities Allergic rhinitis GERD (gastroesophageal reflux disease) Epilepsy Paroxysmal atrial tachycardia Cerebral palsy Scoliosis Spina bifida Aphasia Microcephaly Surgical History H/O transurethral destruction of bladder lesion 12/2021 History of removal of neck cyst Family History Other Family history non-contributory Social History Smoking Status: Never smoker Second Hand Exposure: No; Do You Dip or Chew Tobacco: No; Hx Alcohol Use: No Hx Substance Use: No Preferred Language: Luxembourger Communication Ability: Unable Communication Ability Comment: Pt is non verbal Visual 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 Limited Pulmonologist Intensivist Required: No Beliefs That Will Affect Care: None marital status: Single Current Living Situation: Boarding Home Current Living Situation Comment: senior living current occupational status: disabled Other Information That Helps Us Care for You: No Feels Safe at Home: Yes Safety Concerns: Feels Safe At This Time Diet: regular caffeine: Yes Dental Care, Regularly: Yes Assistive Devices: Wheelchair Review of Systems Review of Systems: Unobtainable due to cognitive status Physical Exam Physical Exam: General: frail appearing, NAD Skin: warm, dry, intact, no rashes or lesions HEENT: NC/AT, PERRL, anicteric sclera, conjunctiva without injection, external ear normal to inspection and nontender, nares patent, moist mucus membranes, neck supple, trachea midline, no LAD, no thyromegaly, no JVD Heart: +S1/S2, regular, tachycardic, no m/r/g Lungs: equal air entry bilaterally, no rales/rhonchi/wheezes Abd: +BS, soft, ND, no masses/organomegaly/ascites Ext: warm, 2+ pulses in UE/LE bilaterally, no clubbing/cyanosis or edema Neuro:nonverbal Results & Data Results & Data Vital Signs (Past 12 Hours) Vital Signs Temp Pulse Pulse Resp BP BP Pulse Ox 10/07/23 21:08 117 H 21 121/85 99 10/07/23 21:00 126 H 02/02/24 17:18 36.8 C 133 H 20 129/80 100 O2 Del Method 10/07/23 21:08 Room Air 10/07/23 21:00 10/07/23 17:18 Room Air Laboratory Results Laboratory Results WBC 10.11 K/ul (4.8-10.8) 10/07/23 18:35 RBC 3.11 M/uL (4.70-6.10) L 10/07/23 18:35 Hgb 7.3 g/dl (14.0-18.0) L 10/07/23 18:35 Hct 26.7 % (42.0-52.0) L 10/07/23 18:35 MCV 85.9 fL (80.0-100.0) 10/07/23 18:35 MCH 23.5 pg (25.0-34.0) L 10/07/23 18:35 MCHC 27.3 g/dL (32.0-36.0) L 10/07/23 18:35 RDW Std Deviation 55.8 fL (36.4-46.3) H 10/07/23 18:35 RDW Coeff of [place] 18.0 % (11.5-14.5) H 10/07/23 18:35 Plt Count 354 K/uL (130-400) 10/07/23 18:35 MPV 10.6 fL (9.4-12.4) 10/07/23 18:35 Immature Gran % (Auto) 0.3 % 10/07/23 18:35 Neut % (Auto) 54.4 % 10/07/23 18:35 Lymph % (Auto) 30.7 % 10/07/23 18:35 Clark % (Auto) 14.3 % 10/07/23 18:35 Eos % (Auto) 0.1 % 10/07/23 18:35 Baso % (Auto) 0.2 % 10/07/23 18:35 Neut # (Auto) 5.50 K/uL (1.40-6.50) 10/07/23 18:35 Lymph # (Auto) 3.10 K/uL (1.20-3.40) 10/07/23 18:35 Clark # (Auto) 1.45 K/uL (0.11-0.59) H 10/07/23 18:35 Eos # (Auto) 0.01 K/uL (0.00-0.50) 10/07/23 18:35 Baso # (Auto) 0.02 K/uL (0.00-0.20) 10/07/23 18:35 Immature Gran # (Auto) 0.03 K/uL (0.01-0.20) 10/07/23 18:35 Hypochromasia Present 10/07/23 18:35 Ovalocytes 1+ 10/07/23 18:35 Sodium 144 mmol/L (136-145) 10/07/23 18:35 Potassium 4.0 mmol/L (3.5-5.1) 10/07/23 18:35 Chloride 112 mmol/L (98-107) H 10/07/23 18:35 Carbon Dioxide 24 mmol/L (21-32) 10/07/23 18:35 Anion Gap 8 (3-11) 10/07/23 18:35 BUN 21 mg/dl (6-23) 10/07/23 18:35 Creatinine 0.52 mg/dl (0.6-1.4) L 10/07/23 18:35 Est Cr Clr Drug Dosing Not Reportable 10/07/23 18:35 Est GFR ( Amer) 133.4 ml/min 10/07/23 18:35 Est GFR (Non-Af Amer) 115.1 ml/min 10/07/23 18:35 BUN/Creatinine Ratio 40.4 (10-20) H 10/07/23 18:35 Glucose 114 mg/dl (70-99(Fasting)) H 10/07/23 18:35 Calcium 9.6 mg/dl (8.6-10.3) 10/07/23 18:35 Phosphorus 4.4 mg/dl (2.5-4.9) 10/07/23 18:35 Magnesium 1.8 mg/dl (1.7-2.4) 10/07/23 18:35 Total Bilirubin 0.4 mg/dl (0.2-1.0) 10/07/23 18:35 AST 16 U/L (13-39) 10/07/23 18:35 ALT 5 U/L (7-52) L 10/07/23 18:35 Alkaline Phosphatase 67 U/L (34-104) 10/07/23 18:35 Troponin I High Sens 7.6 pg/ml (0-20) 10/07/23 18:35 C-Reactive Protein 4.13 mg/dl (0-0.5) H 10/07/23 18:35 Total Protein 6.3 gm/dl (6.0-8.3) 10/07/23 18:35 Albumin 3.1 gm/dl (3.4-5.0) L 10/07/23 18:35 Globulin 3.2 gm/dl (2.5-4.0) 10/07/23 18:35 Albumin/Globulin Ratio 1.0 (0.9-2) 10/07/23 18:35 Procalcitonin 0.06 ng/ml (0-0.5) 10/07/23 23:14 Nasal Screen MRSA (PCR) Negative (Negative) 10/07/23 23:27 Adenovirus (PCR) Not Detected (NotDetected) 10/07/23 20:55 B. pertussis DNA (PCR) Not Detected (NotDetected) 10/07/23 20:55 B.parapertussis DNA PCR Not Detected (NotDetected) 10/07/23 20:55 C. pneumoniae DNA (PCR) Not Detected (NotDetected) 10/07/23 20:55 Coronavirus OC43 (PCR) Not Detected (NotDetected) 10/07/23 20:55 Coronavirus HKU1 (PCR) Not Detected (NotDetected) 10/07/23 20:55 Coronavirus 229E (PCR) Not Detected (NotDetected) 10/07/23 20:55 SARS-CoV-2 (PCR) Not Detected (NotDetected) 10/07/23 20:55 Coronavirus NL63 (PCR) Not Detected (NotDetected) 10/07/23 20:55 Human Metapneumovir PCR Not Detected (NotDetected) 10/07/23 20:55 Influenza Type A (PCR) Not Detected (NotDetected) 10/07/23 20:55 Influenza Type B (PCR) Not Detected (NotDetected) 10/07/23 20:55 M. pneumoniae (PCR) Not Detected (NotDetected) 10/07/23 20:55 Parainfluenza 1 (PCR) Not Detected (NotDetected) 10/07/23 20:55 Parainfluenza 2 (PCR) Not Detected (NotDetected) 10/07/23 20:55 Parainfluenza 3 (PCR) Not Detected (NotDetected) 10/07/23 20:55 Parainfluenza 4 (PCR) Not Detected (NotDetected) 10/07/23 20:55 RSV (PCR) Not Detected (NotDetected) 10/07/23 20:55 Entero/Rhino (PCR) Not Detected (NotDetected) 10/07/23 20:55 Blood Type O Positive 10/07/23 20:11 Antibody Screen NEGATIVE 10/07/23 20:11 Impressions Chest X-Ray 10/07/23 17:23 XR chest 1V portable CLINICAL HISTORY: concern for aspiration TECHNIQUE: Single frontal radiograph of the chest was obtained. Comparison: Comparison is made to CT chest 12/09/2022 FINDINGS: No lines and tubes are seen. Cardiomegaly is noted. Reticular interstitial opacities are seen. No evidence of pleural effusion or pneumothorax. IMPRESSION: No airspace opacity to suggest aspiration. ACT 112: Negative or not required by law. Electronically signed by: Dylan Figueredo M.D. 10/07/2023 6:58 PM Abdomen/Pelvis CT 10/07/23 19:45 Exam(s): CT ABDOMEN + PELVIS Without Contrast EXAM: CT Abdomen and Pelvis Without Intravenous Contrast CLINICAL HISTORY: Reason for exam: vomiting. TECHNIQUE: Axial computed tomography images of the abdomen and pelvis without intravenous contrast. CTDI is 12.62 mGy and DLP is 590.72 mGy-cm. Automated exposure control was utilized for the study. A dose lowering technique was utilized adhering to the principles of ALARA. COMPARISON: CT abdomen and pelvis 05/02/22 FINDINGS: There are tree-in-bud opacities at the bilateral lung bases, right worse than left. There is small hiatal hernia with wall thickening distal esophagus. Unenhanced appearance of the liver, gallbladder, spleen, pancreas, and adrenal glands is unremarkable. Kidneys are similar in size and contour, without hydronephrosis. There is a punctate nonobstructing right kidney lower pole stone. There is no aortic aneurysm. There is no adenopathy, free fluid, or free air. Appendix is not visualized. There is no bowel obstruction or inflammation. There is a stable density along the inferior aspect of the cecum measuring 2.8 cm. Prostate is normal in size. Urinary bladder wall is thickened. There is a small left-sided bladder diverticulum. Hips appear dysplastic bilaterally. There are no acute fractures. There is levoscoliosis of the lumbar spine. IMPRESSION: 1. Bladder wall thickening is similar to prior CT and may reflect chronic bladder outlet obstruction. Correlate with urinalysis to exclude cystitis. 2. Punctate nonobstructing right kidney stone. No hydronephrosis. 3. Small hiatal hernia. Distal esophageal wall thickening suggesting esophagitis. 4. Tree-in-bud opacities at the lung bases, right greater than left, suggesting aspiration or pneumonia. 5. Stable density along the inferior aspect of the cecum measuring 2.8 cm, identity uncertain, potentially undescended right testis. Electronically signed by: Clarence Jerry M.D. 10/07/23 21:[address] 10/07/23 19:45 Exam(s): CT CHEST Without Contrast EXAM: CT Chest Without Intravenous Contrast CLINICAL HISTORY: Reason for exam: vomiting. TECHNIQUE: Axial computed tomography images of the chest without intravenous contrast. CTDI is 12.62 mGy and DLP is 590.72 mGy-cm. Automated exposure control was utilized for the study. A dose lowering technique was utilized adhering to the principles of ALARA. COMPARISON: No relevant prior studies available. FINDINGS: Lungs: There are widespread tree-in-bud opacities throughout the right upper, right middle, right lower lobe, with additional tree-in-bud opacities in the left lower lobe. Pleural space: Unremarkable. No pleural effusion or pneumothorax. Heart: Coronary artery atherosclerosis. No cardiomegaly or pericardial effusion. Bones/joints: Unremarkable. No acute fracture. No dislocation. Soft tissues: Unremarkable. Vasculature: No thoracic aortic aneurysm. Normal caliber main pulmonary artery. Lymph nodes: Unremarkable. No enlarged lymph nodes. IMPRESSION: Bilateral tree-in-bud opacities, extensive within the right lung. Consider infectious bronchiolitis, bronchopneumonia, or aspiration. Electronically signed by: Clarence Jerry M.D. 10/07/23 20:[address] 10/07/23 19:45 Exam(s): CT NECK Without Contrast EXAM: CT Neck Without Intravenous Contrast CLINICAL HISTORY: Reason for exam: vomiting. TECHNIQUE: Axial computed tomography images of the neck without intravenous contrast. CTDI is 12.62 mGy and DLP is 590.72 mGy-cm. Automated exposure control was utilized for the study. A dose lowering technique was utilized adhering to the principles of ALARA. COMPARISON: No relevant prior studies available. FINDINGS: Oropharynx: Unremarkable. No significant tonsillar enlargement. Hypopharynx: Unremarkable. Larynx: Unremarkable. Normal epiglottis. Trachea: Unremarkable. Retropharyngeal space: Unremarkable. Submandibular/parotid glands: Unremarkable. Glands are normal in size. Thyroid: Unremarkable. No enlarged or calcified nodules. Bones/joints: Degenerative changes in the cervical spine. No acute osseous findings. Soft tissues: Unremarkable. Vasculature: No acute findings. Lymph nodes: Unremarkable. No lymphadenopathy. Lung apices: Tree-in-bud opacities throughout the visualized right lung. IMPRESSION: 1. Tree-in-bud opacities throughout the visualized right lung. Consider infectious bronchiolitis, bronchopneumonia, or aspiration. Electronically signed by: Clarence Jerry M.D. 10/07/23 20:47 PM Code Status & VTE Plan VTE Prophylaxis Plan VTE Prophylaxis will be ordered: Yes PG Care Time/CCT Total # of Minutes Spent Total Time Spent with Patient: Total time spent is greater than 50% in coordination of care (as documented) at patient's floor/unit and/or counseling patient: Coding Level of Care Code 08408 INT INP/OBS CARE 2/55MIN Diagnoses Vomiting R11.10 Nausea presence: unspecified Vomiting type: unspecified Aspiration pneumonia J69.0 Aspiration pneumonia type: unspecified Laterality: right Lung location: lower lobe of lung Cerebral palsy G80.9 Cerebral palsy type: unspecified type (1) Vomiting Nausea presence: unspecified Vomiting type: unspecified Qualified Code(s): R11.10 - Vomiting, unspecified (2) Aspiration pneumonia Aspiration pneumonia type: unspecified Laterality: right Lung location: lower lobe of lung Qualified Code(s): J69.0 - Pneumonitis due to inhalation of food and vomit (3) Cerebral palsy Cerebral palsy type: unspecified type Qualified Code(s): G80.9 - Cerebral palsy, unspecified
[2023-10-07] MEDS ORDERED: ONDANSETRON INJ 2 MG/ML 2 ML VIAL IV PRN (23:59)
[2023-10-08 00:36] LABS: Magnesium 1.8 mg/dl (1.7-2.4)
[2023-10-08 00:41] LABS: Phosphorus 4.4 mg/dl (2.5-4.9)
[2023-10-08] MEDS: PIPER/TAZO 4.5g in D5W MINI-B 100 ML IV STA (00:51)
[2023-10-08] MEDS ORDERED: bisacodyL 10 MG SUPP PR PRN (01:40)
[2023-10-08] MEDS ORDERED: ALBUT/IPRATROP 3MG/0.5MG NEB 3 ML VIAL NEB PRN (01:40)
[2023-10-08] MEDS ORDERED: LORazepam 2 MG in SYRINGE 1 ML IV PRN (01:45)
[2023-10-08] MEDS: PIPERACILLIN/TAZOBACTAM 4.5 GM in DEXTROSE 5% MINI-B 100 ML IV SCH (05:53)
[2023-10-08 06:41] LABS: Hematocrit (blood only) 19.7 % (42.0-52.0); Hemoglobin 5.5 g/dl (14.0-18.0); Mean Corpuscular Hemoglobin 23.5 pg (25.0-34.0); Mean Corpuscular Hgb Conc 27.9 g/dL (32.0-36.0); Mean Corpuscular Volume 84.2 fL (80.0-100.0); Mean Platelet Volume 10.7 fL (9.4-12.4); Platelet Count 292 K/uL (130-400); RDW Coefficient of Variation 18.1 % (11.5-14.5); RDW Standard Deviation 55.2 fL (36.4-46.3); Red Blood Count 2.34 M/uL (4.70-6.10); White Blood Count 6.13 K/ul (4.8-10.8)
[2023-10-08 07:05] LABS: BUN Creatinine Ratio 39.2 (10-20); Calcium 8.6 mg/dl (8.6-10.3); Creatinine Clr Calc Pharmacy 100.7 ml/min; Est GFR (African American) 134.5 ml/min; Potassium 3.5 mmol/L (3.5-5.1)
[2023-10-08 07:25] LABS: Basophils # (auto) 0.02 K/uL (0.00-0.20); Basophils % (auto) 0.3 %; Eosinophils # (auto) 0.04 K/uL (0.00-0.50); Eosinophils % (auto) 0.7 %; Hypochromasia Present; Immature Granulocytes # (auto) 0.02 K/uL (0.01-0.20); Immature Granulocytes % (auto) 0.3 %; Lymphocytes # (auto) 1.88 K/uL (1.20-3.40); Lymphocytes % (auto) 30.7 %; Microcytosis Present; Monocytes # (auto) 0.82 K/uL (0.11-0.59); Monocytes % (auto) 13.4 %; Neutrophils # (auto) 3.35 K/uL (1.40-6.50); Neutrophils % (auto) 54.6 %; Ovalocytes 1+; Polychromasia 1+
[2023-10-08] MEDS: BUDESONIDE 0.5 MG/2 ML VIAL (PULMICORT) NEB SCH (07:41)
[2023-10-08] MEDS: DOCUSATE SODIUM 100 MG CAP PO SCH (08:40)
[2023-10-08] MEDS: LORazepam 0.5 MG in SYRINGE 0.25 ML IV SCH (09:14)
[2023-10-08] MEDS: PANTOprazole 40 MG in SYRINGE 0 ML IV SCH (09:14)
[2023-10-08] MEDS: DIVALPROEX SODIUM SPRINKLE/DEL-REL 125 MG CAP PO SCH (09:14)
[2023-10-08] MEDS: levETIRAcetam 500 MG TAB PO SCH (09:14)
[2023-10-08] MEDS: POLYETHYLENE (MIRALAX) 17 GM PACK PO SCH (09:16)
--- NOTE | 2023-10-08 10:12 | Gastrointestinal Consultation ---
Date of Consultation October 08, 2023 Assessment & Plan (1) Anemia: It is unclear to me by the history I obtained from current caregiver how much blood he has brought up. With her it wasn't much but there was report of two episodes of emesis of "black material" but there has been no mention of melenic stools. He is on hospice and I spoke to caregiver in room, steamblaster and director as to what is to be done with him as far as evaluation and nobody could or would commit to an answer but said "they would get back to us". For now I would support with fluids and blood products as appropriate. Would treat empirically with PPI and observe--he had an EGD 16 months ago so we know we aren't dealing with UGI malignancy. I am curious as to why we aren't seeing melenic stools. I will follow History of Present Illness Reason for Consultation: GI bleed Attending Physician: Ken Corona MD History of Present Illness 63 year old man with CP, history of cancer (bladder) on hospice admitted with "hematemesis". Caregiver with him now tells me that when she had him he would bring up a white "gel" that was sweet smelling and had "black flecks" in it. Caregiver that had him the next day reported he vomited black material. Admit hemoglobin was 7.3 and today's is 5.5. However there has been no report of melenic stool and she tells me that stool he had two days ago did not have blood in it. She also says he doesn't have much bowel movements because he doesn't eat much. He did have EGD in 05/2022 for a grape in his esophagus. He is noted to have tortuous esophagus with hiatal hernia and has recurrent aspirations. He is on hospice and it is not clear as to how much testing he should undergo. Caregiver tells me that "colonoscopy is probably not going to be done" Allergies Allergy/AdvReac Type Severity Reaction Status Date / Time metoclopramide Allergy Intermediate Agitation Verified 03/21/23 09:31 Home Medications Medication Instructions Recorded Confirmed Type diaper,brief,adult,disposable #100 ea 03/19/20 10/07/23 Rx (Briefs Medium) diazepam 5 mg-7.5 mg-10 mg rectal 7.5 mg MA UD PRN seizure activity 10/05/21 10/07/23 Rx kit (Diastat AcuDial) #1 ea nebulizers #1 ea 07/13/22 10/07/23 Rx CHAP STICK #1 ea 07/20/22 10/07/23 Rx Wheelchair (Manual) (Manual #1 ea 10/26/22 10/07/23 Rx Wheelchair) clindamycin phosphate 1 % topical 1 applic topical DAILY #60 ea 11/05/22 10/07/23 Rx swab carbamide peroxide 6.5 % ear drops 2 drp OTB 3XWK #15 mL 12/14/22 10/07/23 Rx (Debrox) budesonide 0.5 mg/2 mL suspension 0.5 mg (2 mL) NEB BIDR #60 mL 12/28/22 10/07/23 Rx for nebulization clotrimazole 1 % topical cream 1 applic topical BID PRN Rash #30 12/28/22 10/07/23 Rx grams ketoconazole 2 % shampoo 1 applic topical 2XWK #120 mL 12/28/22 10/07/23 Rx loperamide 2 mg capsule (Imodium 2 mg PO UD PRN Diarrhea #14 caps 12/28/22 10/07/23 Rx A-D) neomycin-bacitracn Zn-polymyx 3.5 1 applic topical BID PRN abrasions 12/28/22 10/07/23 Rx mg-400 unit-5,000 unit/gram top #28.4 grams oint (Triple Antibiotic) triamcinolone acetonide 0.1 % 1 applic topical BID PRN rash #30 12/28/22 10/07/23 Rx topical cream grams polyethylene glycol 3350 17 17 g PO DAILY constipation 30 days 01/27/23 10/07/23 Rx gram/dose oral powder #510 grams levetiracetam 750 mg tablet 1,500 mg (2 x 750 mg) PO BID 90 03/22/23 10/07/23 Rx (Keppra) days #360 tabs loratadine 10 mg tablet (Claritin) 10 mg PO DAILY allergies #90 tabs 03/22/23 10/07/23 Rx aluminum-mag hydroxide-simethicone 30 ml PO Q4H PRN UPSET 04/12/23 10/07/23 Rx 400 mg-400 mg-40 mg/5 mL oral susp STOMACH/VOMITING #355 mL (Antacid-Simethicone) calcium carbonate 500 mg-vitamin 1 tab PO DAILY 30 days #30 tabs 04/13/23 10/07/23 Rx D3 5 mcg (200 unit) tablet (Oyster Shell Calcium-Vitamin D3) pantoprazole 40 mg tablet,delayed 40 mg PO DAILY #90 tabs 04/20/23 10/07/23 Rx release (Protonix) acetaminophen 325 mg tablet 650 mg (2 x 325 mg) PO Q6H PRN 04/22/23 10/07/23 Rx Fever Or Pain #90 tabs docusate sodium 100 mg capsule 100 mg PO DAILY constipation #90 06/21/23 10/07/23 Rx (Stool Softener) caps lorazepam 1 mg tablet 1 mg PO HS #15 tabs 07/04/23 10/07/23 Rx divalproex 125 mg capsule,delayed 750 mg (6 x 125 mg) PO BID #180 07/27/23 10/07/23 Rx release sprinkle caps Promethazine Gel 25mg/Ml 1 ml topical Q6 PRN Nausea And 10/07/23 10/07/23 History Vomiting atropine 1 % eye drops 2 drp sublingual .EVERY 1 HOUR PRN 10/07/23 10/07/23 History terminal secretions bisacodyl 10 mg rectal suppository 10 mg MA .EVERY 3 DAYS PRN no BM 10/07/23 10/07/23 History for constipation emollient combination no.92 1 applic topical BID 10/07/23 10/07/23 History (Lubriderm Daily Moisture lotion) food supplemt, lactose-reduced 1 ea PO BID 10/07/23 10/07/23 History ipratropium 0.5 mg-albuterol 3 mg 3 ml NEB DAILY PRN Shortness Of 10/07/23 10/07/23 History (2.5 mg base)/3 mL nebulization Breath soln lorazepam 0.5 mg tablet 0.5 mg PO QAM 10/07/23 10/07/23 History lorazepam 2 mg/mL oral concentrate 1 mg sublingual Q4 PRN Anxiety 10/07/23 10/07/23 History morphine concentrate 100 mg/5 mL 10 mg PO Q2H PRN Respiratory 10/07/23 10/07/23 History (20 mg/mL) oral solution Distress ondansetron 4 mg disintegrating 6 mg PO Q6H PRN nausea and vomiting 10/07/23 10/07/23 History tablet phenylephrine 0.25 %-mineral oil 1 applic MA QID PRN hemorroidal 10/07/23 10/07/23 History 14 %-petrolatm 74.9 % rectal irritation ointment (Preparation H) sodium chloride 0.65 % nasal spray 1 spray intranasal TID PRN Dry 10/07/23 10/07/23 History aerosol (Saline Mist) Nasal Passages sodium chloride-aloe vera nasal 1 spray intranasal BID 10/07/23 10/07/23 History spray (Spangler Saline Gel nasal spray) sodium phosphates 19 gram-7 118 ml MA DAILY PRN on day 4 of no 10/07/23 10/07/23 History gram/118 mL enema (Cplvr-Oq-Edt BM Enema) sunscreen SPF 65 lotion (Total 1 ea topical UD PRN Sun Exposure 10/07/23 10/07/23 History Block Clear) white petrolatum 41 % topical 1 applic topical HS 10/07/23 10/07/23 History ointment (Aquaphor Healing) Patient History Medical History Aspiration pneumonitis Palliative care encounter Aspiration into airway Pneumonia Acute dehydration Nausea & vomiting Atrial tachycardia Anemia Seizure Chronic periodontitis Ptosis, left eyelid Paraplegia History of prematurity Bladder carcinoma s/p TURBT 10/2021 Alternating exotropia Hyperlipidemia Mood disorder Chronic constipation PAD (peripheral artery disease) Dermatitis Cataracts, both eyes Severe intellectual disabilities Allergic rhinitis GERD (gastroesophageal reflux disease) Epilepsy Paroxysmal atrial tachycardia Cerebral palsy Scoliosis Spina bifida Aphasia Microcephaly Surgical History H/O transurethral destruction of bladder lesion 12/2021 History of removal of neck cyst Family History Other Family history non-contributory Social History Smoking Status: Never smoker Second Hand Exposure: No; Do You Dip or Chew Tobacco: No; Hx Alcohol Use: No Hx Substance Use: No Preferred Language: P[place] Communication Ability: Unable Communication Ability Comment: Pt is non verbal Visual 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 Limited Cooker Process Cheese Required: No Beliefs That Will Affect Care: None marital status: Single Current Living Situation: Boarding Home Current Living Situation Comment: prison current occupational status: disabled Other Information That Helps Us Care for You: No Feels Safe at Home: Yes Safety Concerns: Feels Safe At This Time Diet: regular caffeine: Yes Dental Care, Regularly: Yes Assistive Devices: Wheelchair Review of Systems Review of Systems: Unobtainable due to cognitive status Physical Exam Physical Exam: Lying in bed in contracte state Respiratory: normal respiratory effort, lungs clear to auscultation Cardiovascular: RRR, no murmur, no edema Gastrointestinal (Abdomen): normal bowel sounds, soft, nontender, no hepatosplenomegaly (difficult exam) Results & Data Vital Signs (Past 12 Hours) Vital Signs Temp Pulse Pulse Pulse Resp BP Pulse Ox 10/08/23 07:55 10/08/23 07:48 103 H 18 98 10/08/23 07:33 36.6 C 104 H 18 124/67 98 10/08/23 06:00 102 H 10/08/23 03:36 36.8 C 103 H 16 91/52 L 91 10/08/23 00:09 36.7 C 106 H 16 98/63 L 99 10/08/23 00:03 107 H 10/07/23 23:31 108 H 20 94 10/07/23 23:16 111 H 18 126/76 99 O2 Del Method 10/08/23 07:55 Room Air 10/08/23 07:48 Room Air 10/08/23 07:33 Room Air 10/08/23 06:00 10/08/23 03:36 Room Air 10/08/23 00:09 Room Air 10/08/23 00:03 10/07/23 23:31 Room Air 10/07/23 23:16 Room Air Laboratory Results 10/07/23 10/07/23 10/07/23 18:35 20:11 20:55 WBC 10.11 RBC 3.11 L Hgb 7.3 L Hct 26.7 L MCV 85.9 MCH 23.5 L MCHC 27.3 L RDW Std Deviation 55.8 H RDW Coeff of [place] 18.0 H Plt Count 354 MPV 10.6 Immature Gran % (Auto) 0.3 Neut % (Auto) 54.4 Lymph % (Auto) 30.7 [place] % (Auto) 14.3 Eos % (Auto) 0.1 Baso % (Auto) 0.2 Neut # (Auto) 5.50 Lymph # (Auto) 3.10 [place] # (Auto) 1.45 H Eos # (Auto) 0.01 Baso # (Auto) 0.02 Immature Gran # (Auto) 0.03 Polychromasia Hypochromasia Present Microcytosis Ovalocytes 1+ Sodium 144 Potassium 4.0 Chloride 112 H Carbon Dioxide 24 Anion Gap 8 BUN 21 Creatinine 0.52 L Est Cr Clr Drug Dosing Not Reportable Est GFR ( Amer) 133.4 Est GFR (Non-Af Amer) 115.1 BUN/Creatinine Ratio 40.4 H Glucose 114 H Calcium 9.6 Phosphorus 4.4 Magnesium 1.8 Total Bilirubin 0.4 AST 16 ALT 5 L Alkaline Phosphatase 67 Troponin I High Sens 7.6 C-Reactive Protein 4.13 H Total Protein 6.3 Albumin 3.1 L Globulin 3.2 Albumin/Globulin Ratio 1.0 Procalcitonin Nasal Screen MRSA (PCR) Adenovirus (PCR) Not Detected B. pertussis DNA (PCR) Not Detected B.parapertussis DNA PCR Not Detected C. pneumoniae DNA (PCR) Not Detected Coronavirus OC43 (PCR) Not Detected Coronavirus HKU1 (PCR) Not Detected Coronavirus 229E (PCR) Not Detected SARS-CoV-2 (PCR) Not Detected Coronavirus NL63 (PCR) Not Detected Human Metapneumovir PCR Not Detected Influenza Type A (PCR) Not Detected Influenza Type B (PCR) Not Detected M. pneumoniae (PCR) Not Detected Parainfluenza 1 (PCR) Not Detected Parainfluenza 2 (PCR) Not Detected Parainfluenza 3 (PCR) Not Detected Parainfluenza 4 (PCR) Not Detected RSV (PCR) Not Detected Entero/Rhino (PCR) Not Detected Blood Type O Positive Antibody Screen NEGATIVE 10/07/23 10/07/23 10/08/23 23:14 23:27 06:01 WBC 6.13 RBC 2.34 L Hgb 5.5 L* Hct 19.7 L* MCV 84.2 MCH 23.5 L MCHC 27.9 L RDW Std Deviation 55.2 H RDW Coeff of [place] 18.1 H Plt Count 292 MPV 10.7 Immature Gran % (Auto) 0.3 Neut % (Auto) 54.6 Lymph % (Auto) 30.7 [place] % (Auto) 13.4 Eos % (Auto) 0.7 Baso % (Auto) 0.3 Neut # (Auto) 3.35 Lymph # (Auto) 1.88 [place] # (Auto) 0.82 H Eos # (Auto) 0.04 Baso # (Auto) 0.02 Immature Gran # (Auto) 0.02 Polychromasia 1+ Hypochromasia Present Microcytosis Present Ovalocytes 1+ Sodium 146 H Potassium 3.5 Chloride 114 H Carbon Dioxide 26 Anion Gap 6 BUN 20 Creatinine 0.51 L Est Cr Clr Drug Dosing 100.7 Est GFR ( Amer) 134.5 Est GFR (Non-Af Amer) 116.0 BUN/Creatinine Ratio 39.2 H Glucose 99 Calcium 8.6 Phosphorus Magnesium Total Bilirubin AST ALT Alkaline Phosphatase Troponin I High Sens C-Reactive Protein Total Protein Albumin Globulin Albumin/Globulin Ratio Procalcitonin 0.06 Nasal Screen MRSA (PCR) Negative Adenovirus (PCR) B. pertussis DNA (PCR) B.parapertussis DNA PCR C. pneumoniae DNA (PCR) Coronavirus OC43 (PCR) Coronavirus HKU1 (PCR) Coronavirus 229E (PCR) SARS-CoV-2 (PCR) Coronavirus NL63 (PCR) Human Metapneumovir PCR Influenza Type A (PCR) Influenza Type B (PCR) M. pneumoniae (PCR) Parainfluenza 1 (PCR) Parainfluenza 2 (PCR) Parainfluenza 3 (PCR) Parainfluenza 4 (PCR) RSV (PCR) Entero/Rhino (PCR) Blood Type Antibody Screen Diagnostic Findings Chest X-Ray 10/07/23 17:23 XR chest 1V portable CLINICAL HISTORY: concern for aspiration TECHNIQUE: Single frontal radiograph of the chest was obtained. Comparison: Comparison is made to CT chest 12/09/2022 FINDINGS: No lines and tubes are seen. Cardiomegaly is noted. Reticular interstitial opacities are seen. No evidence of pleural effusion or pneumothorax. IMPRESSION: No airspace opacity to suggest aspiration. ACT 112: Negative or not required by law. Electronically signed by: Dylan Figueredo M.D. 10/07/2023 6:58 PM Abdomen/Pelvis CT 10/07/23 19:45 Exam(s): CT ABDOMEN + PELVIS Without Contrast EXAM: CT Abdomen and Pelvis Without Intravenous Contrast CLINICAL HISTORY: Reason for exam: vomiting. TECHNIQUE: Axial computed tomography images of the abdomen and pelvis without intravenous contrast. CTDI is 12.62 mGy and DLP is 590.72 mGy-cm. Automated exposure control was utilized for the study. A dose lowering technique was utilized adhering to the principles of ALARA. COMPARISON: CT abdomen and pelvis 05/02/22 FINDINGS: There are tree-in-bud opacities at the bilateral lung bases, right worse than left. There is small hiatal hernia with wall thickening distal esophagus. Unenhanced appearance of the liver, gallbladder, spleen, pancreas, and adrenal glands is unremarkable. Kidneys are similar in size and contour, without hydronephrosis. There is a punctate nonobstructing right kidney lower pole stone. There is no aortic aneurysm. There is no adenopathy, free fluid, or free air. Appendix is not visualized. There is no bowel obstruction or inflammation. There is a stable density along the inferior aspect of the cecum measuring 2.8 cm. Prostate is normal in size. Urinary bladder wall is thickened. There is a small left-sided bladder diverticulum. Hips appear dysplastic bilaterally. There are no acute fractures. There is levoscoliosis of the lumbar spine. IMPRESSION: 1. Bladder wall thickening is similar to prior CT and may reflect chronic bladder outlet obstruction. Correlate with urinalysis to exclude cystitis. 2. Punctate nonobstructing right kidney stone. No hydronephrosis. 3. Small hiatal hernia. Distal esophageal wall thickening suggesting esophagitis. 4. Tree-in-bud opacities at the lung bases, right greater than left, suggesting aspiration or pneumonia. 5. Stable density along the inferior aspect of the cecum measuring 2.8 cm, identity uncertain, potentially undescended right testis. Electronically signed by: Clarence Jerry M.D. 10/07/23 21:[address] 10/07/23 19:45 Exam(s): CT CHEST Without Contrast EXAM: CT Chest Without Intravenous Contrast CLINICAL HISTORY: Reason for exam: vomiting. TECHNIQUE: Axial computed tomography images of the chest without intravenous contrast. CTDI is 12.62 mGy and DLP is 590.72 mGy-cm. Automated exposure control was utilized for the study. A dose lowering technique was utilized adhering to the principles of ALARA. COMPARISON: No relevant prior studies available. FINDINGS: Lungs: There are widespread tree-in-bud opacities throughout the right upper, right middle, right lower lobe, with additional tree-in-bud opacities in the left lower lobe. Pleural space: Unremarkable. No pleural effusion or pneumothorax. Heart: Coronary artery atherosclerosis. No cardiomegaly or pericardial effusion. Bones/joints: Unremarkable. No acute fracture. No dislocation. Soft tissues: Unremarkable. Vasculature: No thoracic aortic aneurysm. Normal caliber main pulmonary artery. Lymph nodes: Unremarkable. No enlarged lymph nodes. IMPRESSION: Bilateral tree-in-bud opacities, extensive within the right lung. Consider infectious bronchiolitis, bronchopneumonia, or aspiration. Electronically signed by: Clarence Jerry M.D. 10/07/23 20:49 PM Soft Tissue Neck CT 10/07/23 19:45 Exam(s): CT NECK Without Contrast EXAM: CT Neck Without Intravenous Contrast CLINICAL HISTORY: Reason for exam: vomiting. TECHNIQUE: Axial computed tomography images of the neck without intravenous contrast. CTDI is 12.62 mGy and DLP is 590.72 mGy-cm. Automated exposure control was utilized for the study. A dose lowering technique was utilized adhering to the principles of ALARA. COMPARISON: No relevant prior studies available. FINDINGS: Oropharynx: Unremarkable. No significant tonsillar enlargement. Hypopharynx: Unremarkable. Larynx: Unremarkable. Normal epiglottis. Trachea: Unremarkable. Retropharyngeal space: Unremarkable. Submandibular/parotid glands: Unremarkable. Glands are normal in size. Thyroid: Unremarkable. No enlarged or calcified nodules. Bones/joints: Degenerative changes in the cervical spine. No acute osseous findings. Soft tissues: Unremarkable. Vasculature: No acute findings. Lymph nodes: Unremarkable. No lymphadenopathy. Lung apices: Tree-in-bud opacities throughout the visualized right lung. IMPRESSION: 1. Tree-in-bud opacities throughout the visualized right lung. Consider infectious bronchiolitis, bronchopneumonia, or aspiration. Electronically signed by: Clarence Jerry M.D. 10/07/23 20:47 PM (1) Anemia Anemia type: unspecified type Qualified Code(s): D64.9 - Anemia, unspecified
--- NOTE | 2023-10-08 11:34 | Hospitalist Progress Note ---
Date of Service October 08, 2023 Assessment & Plan (1) Acute upper gastrointestinal bleeding: Plan: coffee-ground emesis highly suggestive of such esophageal or gastric source likely cont PPI IV bid add carafate 1gm QID allow sips of clears watch overnight if stable in am then start clear liquid tray no EGD planned at this time (2) Acute blood loss anemia: Plan: 2nd to esophagitis; can't rule out esophageal or gastric or duodenal ulcers; can't rule out other upper GI process no transfusion at this time - see below stop serial H/H checks (3) Esophagitis: Plan: as seen on admission imaging (esophageal inflammation) may be the cause of his coffee ground emesis, acute blood loss anemia, etc cont IV PPI bid add carafate 1gm QID no EGD planned at this time agree with such in light of Hospice status he has had no further vomiting since admission (4) Sepsis: Plan: 2nd to #5 (5) Aspiration pneumonia: Plan: Patient with chronic aspiration Suspect that with 1 of his recent vomiting episodes he aspirated again and now has aspiration pneumonia CT chest c/w aspiration pneumonia he is now febrile and tachycardic from his pneumonia remains on zosyn - reasonable to treat for comfort purposes (6) Hospice care patient: Plan: it has been confirmed with multiple sources that patient is indeed enrolled in a hospice program thru [facility] POLST form reviewed in its entirety lengthy discussion held with 2 nurses on staff from the [facility] has legal guardianship of Donny; no family are involved in his affairs given his hospice status the focus will be on maintaining comfort, preventing and treating symptoms (vomiting, resp distress, etc) deferring on blood transfusion at this time - unlikely to provide significant benefit to him in light of declining status over the last several weeks (7) Cerebral palsy: Plan: severe (8) History of intellectual disability: Plan: severe (9) Bladder carcinoma: Plan: known diagnosis s/p TURBT in the past (10) Epilepsy: Plan: long-standing dx cont depakote cont keppra ativan IV prn no seizures seen since admission Plan DVT proph - not indicated given his hospice status 2 representatives (nurses) updated extensively today from the [facility] Admission and Anticipated Discharge Date Admission Date: October 07, 2023 Subjective patient nonverbal thus unable to obtain any history or ROS a nurse from the [facility] where he resides was present she has known Donny for over 10 years she reports Donny has been declining significantly over the last few weeks sleeping more eating/drinking poorly intermittent vomiting she felt he looked comfortable this am during the visit Donny was awake and when I introduced myself to him he held out his hand to shake my hand the nurse from [facility] called the skilled nursing and one of their lead nurses was on the line we discussed the current issues (upper GI bleeding, anemia, aspiration pneumonia) we reviewed his POLST form -- DNR/DNI, comfort measures, no artificial nutriti on/hydration, etc they confirmed he has been in hospice with [facility] after much discussion - given his hospice status along with other factors - we all collectively agreed we would hold off on transfusion we would focus on his comfort and try to prevent any additional vomiting, prevent any additional GI bleeding, etc we would stop additional blood draws I stopped by later in the day to check on Donny and fortunately he has had no vomiting throughout the day today he is tolerating sips of clears he has not appeared to be in pain developed significant fevers late in the day today Review of Systems Review of Systems: Unobtainable due to mental health condition and Unobtainable due to cognitive status Physical Exam Physical Exam: gen - severe pallor, dysmorphic in appearance, NAD, comfortable, eyes open mouth - MMM heart - tachy, s1 s2, no murmur lungs - crackles bases b/l, no increased work of breathing abd - soft NT ND BS+ ext - pulses 2+ b/l, no edema neuro - contractures of legs skin - pallor Results & Data Results & Data Vital Signs (Past 12 Hours) Vital Signs Temp Pulse Pulse Resp BP Pulse Ox O2 Del Method 10/08/23 10:48 36.9 C 119 H 18 143/61 H 96 Room Air 10/08/23 07:55 Room Air 10/08/23 07:48 103 H 18 98 Room Air 10/08/23 07:33 36.6 C 104 H 18 124/67 98 Room Air 10/08/23 06:00 102 H 10/08/23 03:36 36.8 C 103 H 16 91/52 L 91 Room Air 10/08/23 00:09 36.7 C 106 H 16 98/63 L 99 Room Air 10/08/23 00:03 107 H Laboratory Results Laboratory Results - last 24 hr 10/07/23 10/07/23 10/07/23 18:35 20:11 20:55 WBC 10.11 RBC 3.11 L Hgb 7.3 L Hct 26.7 L MCV 85.9 MCH 23.5 L MCHC 27.3 L RDW Std Deviation 55.8 H RDW Coeff of [place]og[place] 18.0 H Plt Count 354 MPV 10.6 Immature Gran % (Auto) 0.3 Neut % (Auto) 54.4 Lymph % (Auto) 30.7 [place]incon % (Auto) 14.3 Eos % (Auto) 0.1 Baso % (Auto) 0.2 Neut # (Auto) 5.50 Lymph # (Auto) 3.10 [place]in[place] # (Auto) 1.45 H Eos # (Auto) 0.01 Baso # (Auto) 0.02 Immature Gran # (Auto) 0.03 Polychromasia Hypochromasia Present Microcytosis Ovalocytes 1+ Sodium 144 Potassium 4.0 Chloride 112 H Carbon Dioxide 24 Anion Gap 8 BUN 21 Creatinine 0.52 L Est Cr Clr Drug Dosing Not Reportable Est GFR ( Amer) 133.4 Est GFR (Non-Af Amer) 115.1 BUN/Creatinine Ratio 40.4 H Glucose 114 H Calcium 9.6 Phosphorus 4.4 Magnesium 1.8 Total Bilirubin 0.4 AST 16 ALT 5 L Alkaline Phosphatase 67 Troponin I High Sens 7.6 C-Reactive Protein 4.13 H Total Protein 6.3 Albumin 3.1 L Globulin 3.2 Albumin/Globulin Ratio 1.0 Procalcitonin Nasal Screen MRSA (PCR) Adenovirus (PCR) Not Detected B. pertussis DNA (PCR) Not Detected B.parapertussis DNA PCR Not Detected C. pneumoniae DNA (PCR) Not Detected Coronavirus OC43 (PCR) Not Detected Coronavirus HKU1 (PCR) Not Detected Coronavirus 229E (PCR) Not Detected SARS-CoV-2 (PCR) Not Detected Coronavirus NL63 (PCR) Not Detected Human Metapneumovir PCR Not Detected Influenza Type A (PCR) Not Detected Influenza Type B (PCR) Not Detected M. pneumoniae (PCR) Not Detected Parainfluenza 1 (PCR) Not Detected Parainfluenza 2 (PCR) Not Detected Parainfluenza 3 (PCR) Not Detected Parainfluenza 4 (PCR) Not Detected RSV (PCR) Not Detected Entero/Rhino (PCR) Not Detected Blood Type O Positive Antibody Screen NEGATIVE 10/07/23 10/07/23 10/08/23 23:14 23:27 06:01 WBC 6.13 RBC 2.34 L Hgb 5.5 L* Hct 19.7 L* MCV 84.2 MCH 23.5 L MCHC 27.9 L RDW Std Deviation 55.2 H RDW Coeff of [place] 18.1 H Plt Count 292 MPV 10.7 Immature Gran % (Auto) 0.3 Neut % (Auto) 54.6 Lymph % (Auto) 30.7 Rincon % (Auto) 13.4 Eos % (Auto) 0.7 Baso % (Auto) 0.3 Neut # (Auto) 3.35 Lymph # (Auto) 1.88 Rincon # (Auto) 0.82 H Eos # (Auto) 0.04 Baso # (Auto) 0.02 Immature Gran # (Auto) 0.02 Polychromasia 1+ Hypochromasia Present Microcytosis Present Ovalocytes 1+ Sodium 146 H Potassium 3.5 Chloride 114 H Carbon Dioxide 26 Anion Gap 6 BUN 20 Creatinine 0.51 L Est Cr Clr Drug Dosing 100.7 Est GFR ( Amer) 134.5 Est GFR (Non-Af Amer) 116.0 BUN/Creatinine Ratio 39.2 H Glucose 99 Calcium 8.6 Phosphorus Magnesium Total Bilirubin AST ALT Alkaline Phosphatase Troponin I High Sens C-Reactive Protein Total Protein Albumin Globulin Albumin/Globulin Ratio Procalcitonin 0.06 Nasal Screen MRSA (PCR) Negative Adenovirus (PCR) B. pertussis DNA (PCR) B.parapertussis DNA PCR C. pneumoniae DNA (PCR) Coronavirus OC43 (PCR) Coronavirus HKU1 (PCR) Coronavirus 229E (PCR) SARS-CoV-2 (PCR) Coronavirus NL63 (PCR) Human Metapneumovir PCR Influenza Type A (PCR) Influenza Type B (PCR) M. pneumoniae (PCR) Parainfluenza 1 (PCR) Parainfluenza 2 (PCR) Parainfluenza 3 (PCR) Parainfluenza 4 (PCR) RSV (PCR) Entero/Rhino (PCR) Blood Type Antibody Screen PG Care Time/CCT Total # of Minutes Spent Total Time Spent with Patient: Total time spent is greater than 50% in coordination of care (as documented) at patient's floor/unit and/or counseling patient: Coding Level of Care Code 83733 SUB INP/OBS CARE 3/50MIN Diagnoses Acute upper gastrointestinal bleeding K92.2 Acute blood loss anemia D62 Esophagitis K20.90 Sepsis A41.9 Aspiration pneumonia J69.0 Aspiration pneumonia type: unspecified Laterality: right Lung location: lower lobe of lung Hospice care patient Z51.5 Cerebral palsy G80.9 Cerebral palsy type: unspecified type History of intellectual disability Z86.59 Bladder carcinoma C67.9 Epilepsy G40.909 (5) Aspiration pneumonia Aspiration pneumonia type: unspecified Laterality: right Lung location: lower lobe of lung Qualified Code(s): J69.0 - Pneumonitis due to inhalation of food and vomit (7) Cerebral palsy Cerebral palsy type: unspecified type Qualified Code(s): G80.9 - Cerebral palsy, unspecified
[2023-10-08 12:59] LABS: Appearance Urine Turbid (Clear); Bacteria Urine Automated Negative (Negative); Bilirubin Urine Negative (Negative); Blood Urine 2+ (Negative); Color Urine Yellow; Glucose Urine UA Negative (Negative); Ketones Urine Negative (Negative); Leukocyte Esterase Urine 3+ (Negative); Nitrite Urine Positive (Negative); Protein Urine 1+ (Negative); RBC Urine Automated 0-4 /hpf (0-4); Specific Gravity Urine 1.025 (1.000-1.030); Urobilinogen Urine Negative (Negative); WBC Urine Automated >30 /hpf (0-5); pH Urine 5.5 (4.5-7.5)
[2023-10-08] MEDS: SUCRALFATE 1 GM/10 ML UDC PO SCH (13:10)
[2023-10-08 13:18] LABS: Hematocrit (blood only) 19.4 % (42.0-52.0); Hemoglobin 5.5 g/dl (14.0-18.0); Mean Corpuscular Hemoglobin 23.9 pg (25.0-34.0); Mean Corpuscular Hgb Conc 28.4 g/dL (32.0-36.0); Mean Corpuscular Volume 84.3 fL (80.0-100.0); Mean Platelet Volume 10.6 fL (9.4-12.4); Platelet Count 295 K/uL (130-400); RDW Coefficient of Variation 17.9 % (11.5-14.5); RDW Standard Deviation 54.5 fL (36.4-46.3); White Blood Count 6.18 K/ul (4.8-10.8)
[2023-10-08 13:25] LABS: Basophils # (auto) 0.02 K/uL (0.00-0.20); Basophils % (auto) 0.3 %; Eosinophils # (auto) 0.04 K/uL (0.00-0.50); Eosinophils % (auto) 0.6 %; Hypochromasia Present; Immature Granulocytes # (auto) 0.01 K/uL (0.01-0.20); Immature Granulocytes % (auto) 0.2 %; Lymphocytes # (auto) 1.18 K/uL (1.20-3.40); Lymphocytes % (auto) 19.1 %; Microcytosis Present; Monocytes # (auto) 0.72 K/uL (0.11-0.59); Monocytes % (auto) 11.7 %; Neutrophils # (auto) 4.21 K/uL (1.40-6.50); Neutrophils % (auto) 68.1 %; Polychromasia 1+
[2023-10-08] MEDS: ACETAMINOPHEN 325 MG TAB PO PRN (15:44)
[2023-10-08] MEDS: LORazepam 1 MG in SYRINGE 0.5 ML IV SCH (20:57)
--- NOTE | 2023-10-09 06:10 | Electrocardiogram Report ---
Test Reason : Blood Pressure : / mmHG Vent. Rate : 128 BPM Atrial Rate : 128 BPM P-R Int : 126 ms QRS Dur : 070 ms QT Int : 296 ms P-R-T Axes : 056 038 087 degrees QTc Int : 432 ms Sinus tachycardia Nonspecific ST and T wave abnormality Possible Lateral infarct , age undetermined Abnormal ECG When compared with ECG of 06-JUL-2022 08:02, ST now depressed in Lateral leads Confirmed by Rojas Hines ([id number]) on 10/09/2023 6:10:20 AM Referred By: Sofia Xie Confirmed By:Rojas Hines
--- NOTE | 2023-10-09 10:03 | Gastroenterology Progress Note ---
Date of Service October 09, 2023 Assessment & Plan (1) Esophagitis: Plan: Comfort care instituted. Will sign off for now. Please reconsult if needed or decisions change Admission and Anticipated Discharge Date Admission Date: October 07, [address] Wang's note read and appreciated. It has been decided to provide comfort care only. Results & Data Vital Signs (Past 12 Hours) Vital Signs Temp Pulse Pulse Resp BP BP Pulse Ox 10/09/23 07:28 36.7 C 106 H 18 92/52 L 99 10/09/23 07:17 86 16 96 10/09/23 06:01 80 10/08/23 23:57 36.4 C L 76 20 92/53 L 98 10/08/23 23:40 79 10/08/23 22:31 O2 Del Method 10/09/23 07:28 Room Air 10/09/23 07:17 Room Air 10/09/23 06:01 10/08/23 23:57 Room Air 10/08/23 23:40 10/08/23 22:31 Room Air
--- NOTE | 2023-10-09 12:35 | Hospitalist Progress Note ---
Date of Service October 09, 2023 Assessment & Plan (1) Acute upper gastrointestinal bleeding: Plan: coffee-ground emesis highly suggestive of UGI bleed esophageal or gastric source likely cont PPI IV bid cont carafate 1gm QID allow clear liquid diet today, then full liquids tomorrow no EGD planned at this time - patient is hospice and POLST form focuses on comfort measures only (2) Acute blood loss anemia: Plan: 2nd to esophagitis; can't rule out esophageal or gastric or duodenal ulcers; can't rule out other upper GI process no transfusion at this time - see below stopped serial H/H checks (3) Esophagitis: Plan: as seen on admission imaging (esophageal inflammation) may be the cause of his coffee ground emesis, acute blood loss anemia, etc cont IV PPI bid cont carafate 1gm QID no EGD planned at this time he has had no further vomiting since admission or coffee-ground emesis (4) Sepsis: Plan: 2nd to #5 blood cx's neg to date (5) Aspiration pneumonia: Plan: Patient with chronic aspiration Suspect that with 1 of his recent vomiting episodes he aspirated again and now has aspiration pneumonia CT chest c/w aspiration pneumonia cont zosyn - reasonable to treat for comfort purposes - day #2-3 resp biofire was neg at admission (6) Hospice care patient: Plan: it has been confirmed with multiple sources including [facility] that patient is indeed enrolled in hospice POLST form reviewed in its entirety lengthy discussion held with 2 nurses on staff from the [facility] on 10/08/23 [facility] has legal guardianship of Donny; no family are involved in his affairs given his hospice status the focus will be on maintaining comfort, preventing and treating symptoms (vomiting, resp distress, etc) blood transfusion deferred - unlikely to provide significant benefit to him in light of declining status over the last several weeks (7) Cerebral palsy: Plan: severe (8) History of intellectual disability: Plan: severe (9) Bladder carcinoma: Plan: known diagnosis s/p TURBT in the past (10) Epilepsy: Plan: long-standing dx cont depakote cont keppra ativan IV prn no seizures seen since admission Plan DVT proph - not indicated given his hospice status 2 representatives (nurses) updated extensively yesterday from the [facility] updated [facility] today by phone - on-call phone #: they will contact our social workers tomorrow to help coordinate transition of care after he leaves [facility] and returns to [facility] d/c telemetry, move to med/surg Admission and Anticipated Discharge Date Admission Date: October 07, 2023 Subjective no events overnight no vomiting no coffee-ground emesis no hematemesis no melena stools tolerating sips of clears and spoonfuls of applesauce caregiver from [facility] was present at bedside she feels Donny is comfortable no distress of any kind tele - wnl Review of Systems Review of Systems: Unobtainable due to cognitive status and Other (nonverbal ) Physical Exam Physical Exam: gen - severe pallor, dysmorphic in appearance, NAD, comfortable, eyes open, occasional moan/grunt mouth - MM more moist heart - tachy, s1 s2, no murmur lungs - crackles bases b/l, no increased work of breathing abd - soft NT ND BS+ ext - pulses 2+ b/l, no edema neuro - contractures of legs skin - pallor Results & Data Results & Data Vital Signs (Past 12 Hours) Vital Signs Temp Pulse Pulse Resp BP Pulse Ox O2 Del Method 10/09/23 11:20 37 C 93 H 18 102/62 99 Room Air 10/09/23 07:28 36.7 C 106 H 18 92/52 L 99 Room Air 10/09/23 07:17 86 16 96 Room Air 10/09/23 06:01 80 PG Care Time/CCT Total # of Minutes Spent Total Time Spent with Patient: Total time spent is greater than 50% in coordination of care (as documented) at patient's floor/unit and/or counseling patient: Coding Level of Care Code 34815 SUB INP/OBS CARE 2/35MIN Diagnoses Acute upper gastrointestinal bleeding K92.2 Acute blood loss anemia D62 Esophagitis K20.90 Sepsis A41.9 Aspiration pneumonia J69.0 Aspiration pneumonia type: unspecified Laterality: right Lung location: lower lobe of lung Hospice care patient Z51.5 Cerebral palsy G80.9 Cerebral palsy type: unspecified type History of intellectual disability Z86.59 Bladder carcinoma C67.9 Epilepsy G40.909 (5) Aspiration pneumonia Aspiration pneumonia type: unspecified Laterality: right Lung location: lower lobe of lung Qualified Code(s): J69.0 - Pneumonitis due to inhalation of food and vomit (7) Cerebral palsy Cerebral palsy type: unspecified type Qualified Code(s): G80.9 - Cerebral palsy, unspecified
--- NOTE | 2023-10-10 15:28 | Hospitalist Progress Note ---
Date of Service October 10, 2023 Assessment & Plan (1) Acute upper gastrointestinal bleeding: Plan: coffee-ground emesis highly suggestive of UGI bleed esophageal or gastric source likely cont PPI IV bid cont carafate 1gm QID tolerated clears and full liquids w/o apparent GI side effects or worsening bleeding advance to pureed diet no EGD planned at this time - patient is hospice and POLST form focuses on comfort measures only (2) Acute blood loss anemia: Plan: 2nd to esophagitis; can't rule out esophageal or gastric or duodenal ulcers; can't rule out other upper GI process no transfusion at this time - see below stopped serial H/H checks (3) Esophagitis: Plan: as seen on admission imaging (esophageal inflammation) may have been the cause of his coffee ground emesis, acute blood loss anemia, etc at ER presentation cont IV PPI bid cont carafate 1gm QID no EGD planned at this time he has had no vomiting since admission or coffee-ground emesis (4) Sepsis: Plan: 2nd to #5 blood cx's neg to date urine cx neg (5) Aspiration pneumonia: Plan: Patient with chronic aspiration Suspect that with 1 of his recent vomiting episodes he aspirated again and now has aspiration pneumonia CT chest c/w aspiration pneumonia cont with daily fever despite zosyn reasonable to cont treat to pneumonia for comfort purposes - day #3-4 of abx resp biofire was neg at admission if he were to worsen from pneumonia standpoint would simply stop abx and make full comfort care measures (6) Hospice care patient: Plan: it has been confirmed with multiple sources including [facility] that patient is indeed enrolled in hospice POLST form reviewed in its entirety lengthy discussion held with 2 nurses on staff from the [facility] on 10/08/23 [facility] has legal guardianship of Donny; no family are involved in his affairs given his hospice status the focus will be on maintaining comfort, preventing and treating symptoms (vomiting, resp distress, etc) blood transfusion deferred - unlikely to provide significant benefit to him in light of declining status over the last several weeks (7) Cerebral palsy: Plan: severe (8) History of intellectual disability: Plan: severe (9) Bladder carcinoma: Plan: known diagnosis s/p TURBT in the past (10) Epilepsy: Plan: long-standing dx cont depakote cont keppra ativan IV prn no seizures seen since admission Plan DVT proph - not indicated given his hospice status 2 representatives (nurses) updated extensively this weekend from the [facility] updated [facility] yesterday by phone - on-call phone #: if patient worsens simply make full comfort care measures here at [facility] if he is stable and symptoms are controlled could consider transfer back to the [facility] next 1-2 days but will have to see how he is doing Admission and Anticipated Discharge Date Admission Date: October 07, 2023 Subjective continues with fevers daily during my visit he appeared to be having chills/rigors tolerating full liquids aids from the [facility] simply feed him very slowly due to his known aspiration NO coffee-ground emesis, NO vomiting, NO melena stools or BRBPR patient has been sleeping alot and is weak Review of Systems Review of Systems: Unobtainable due to cognitive status and Other (nonverbal status ) Physical Exam Physical Exam: gen - severe pallor, dysmorphic in appearance, NAD, comfortable appearing, eyes open, moans/grunts at times ; looks ill ; rigors heart - tachy, s1 s2, no murmur lungs - crackles bases b/l, no increased work of breathing abd - soft NT ND BS+ ext - pulses 2+ b/l, no edema, warm feet neuro - contractures of legs skin - severe pallor Results & Data Results & Data Vital Signs (Past 12 Hours) Vital Signs Temp Pulse Resp BP Pulse Ox O2 Del Method 10/10/23 15:13 37.1 C 116 H 16 123/65 94 Room Air 10/10/23 07:40 Room Air 10/10/23 07:32 88 18 98 Room Air 10/10/23 07:21 36.5 C 86 16 107/64 98 Room Air PG Care Time/CCT Total # of Minutes Spent Total Time Spent with Patient: Total time spent is greater than 50% in coordination of care (as documented) at patient's floor/unit and/or counseling patient: Coding Level of Care Code 51229 SUB INP/OBS CARE 2/35MIN Diagnoses Acute upper gastrointestinal bleeding K92.2 Acute blood loss anemia D62 Esophagitis K20.90 Sepsis A41.9 Aspiration pneumonia J69.0 Aspiration pneumonia type: unspecified Laterality: right Lung location: lower lobe of lung Hospice care patient Z51.5 Cerebral palsy G80.9 Cerebral palsy type: unspecified type History of intellectual disability Z86.59 Bladder carcinoma C67.9 Epilepsy G40.909 (5) Aspiration pneumonia Aspiration pneumonia type: unspecified Laterality: right Lung location: lower lobe of lung Qualified Code(s): J69.0 - Pneumonitis due to inhalation of food and vomit (7) Cerebral palsy Cerebral palsy type: unspecified type Qualified Code(s): G80.9 - Cerebral palsy, unspecified
[2023-10-10] MEDS: ACETAMINOPHEN 325 MG TAB PO STA (17:26)
--- NOTE | 2023-10-11 18:12 | Hospitalist Progress Note ---
Date of Service October 11, 2023 Assessment & Plan (1) Acute upper gastrointestinal bleeding: Plan: coffee-ground emesis highly suggestive of UGI bleed esophageal or gastric source likely cont PPI IV bid cont carafate 1gm QID tolerated clears and full liquids w/o apparent GI side effects or worsening bleeding advance to pureed diet no EGD planned at this time - patient is hospice and POLST form focuses on comfort measures only (2) Acute blood loss anemia: Plan: 2nd to esophagitis; can't rule out esophageal or gastric or duodenal ulcers; can't rule out other upper GI process no transfusion at this time - see below stopped serial H/H checks (3) Esophagitis: Plan: as seen on admission imaging (esophageal inflammation) may have been the cause of his coffee ground emesis, acute blood loss anemia, etc at ER presentation cont IV PPI bid cont carafate 1gm QID no EGD planned at this time he has had no vomiting since admission or coffee-ground emesis (4) Sepsis: Plan: 2nd to #5 blood cx's neg to date urine cx neg (5) Aspiration pneumonia: Plan: Patient with chronic aspiration Suspect that with 1 of his recent vomiting episodes he aspirated again and now has aspiration pneumonia CT chest c/w aspiration pneumonia cont with daily fever despite zosyn reasonable to cont treat to pneumonia for comfort purposes - day #4-5/5-7 of abx. unclear whether abx are providing any benefit. resp biofire was neg at admission if he were to worsen from pneumonia standpoint would simply stop abx and make full comfort care measures febrile overnight concerning for worsening SIRS/sepsis (6) Hospice care patient: Plan: it has been confirmed with multiple sources including [facility] that patient is indeed enrolled in hospice POLST form reviewed in its entirety lengthy discussion held with 2 nurses on staff from the [facility] on 10/08/23 [facility] has legal guardianship of Donny; no family are involved in his affairs given his hospice status the focus will be on maintaining comfort, preventing and treating symptoms (vomiting, resp distress, etc) blood transfusion deferred - unlikely to provide significant benefit to him in light of declining status over the last several weeks (7) Cerebral palsy: Plan: severe (8) History of intellectual disability: Plan: severe (9) Bladder carcinoma: Plan: known diagnosis s/p TURBT in the past (10) Epilepsy: Plan: long-standing dx cont depakote cont keppra ativan IV prn no seizures seen since admission Plan DVT proph - not indicated given his hospice status 2 representatives (nurses) updated extensively this weekend from the [facility] updated [facility] yesterday by phone - on-call phone #: if patient worsens simply make full comfort care measures here at [facility] if he is stable and symptoms are controlled could consider transfer back to the [facility] next 1-2 days but will have to see how he is doing Admission and Anticipated Discharge Date Admission Date: October 07, 2023 Subjective remains poorly responsive. caregiver at bedside reports not eating/drinking much at all for breakfast. Febrile overnight. Physical Exam 2 Physical Exam: PHYSICAL EXAMINATION Last 24h vital signs reviewed, see documentation in flowsheet General: comfortable appearing, no distress HEENT: Normocephalic, atraumatic, pupils round and equal, sclerae anicteric, no conjunctival injection, dry mucus membranes Lungs: Normal respiratory effort. scattered coarse sounds anteriorly. Heart: tachycardic Regular rate and rhythm, no murmurs. No JVD Abdomen: Soft, nontender, nondistended. Bowel sounds present. Extremities: Warm, dry, well-perfused. No extremity edema. contractures x 4 extremities Neuro: lethargic, face symmetric, opens eyes did not verbalize Psych: unable to assess, no agitation Results & Data Results & Data Vital Signs (Past 12 Hours) Vital Signs Temp Pulse Resp BP Pulse Ox O2 Del Method 10/11/23 14:35 36.6 C 86 18 101/63 98 Room Air 10/11/23 10:06 38 C H 10/11/23 10:02 Room Air 10/11/23 08:12 39.0 C H 113 H 18 100/64 96 Room Air 10/11/23 07:38 112 H 20 95 Room Air Laboratory Results 10/08/23 12:40 10/08/23 06:01 PG Care Time/CCT Total # of Minutes Spent Total Time Spent with Patient: Total time spent is greater than 50% in coordination of care (as documented) at patient's floor/unit and/or counseling patient: Coding Level of Care Code 75502 SUB INP/OBS CARE 2/35MIN Diagnoses Acute upper gastrointestinal bleeding K92.2 Acute blood loss anemia D62 Esophagitis K20.90 Sepsis A41.9 Aspiration pneumonia J69.0 Aspiration pneumonia type: unspecified Laterality: right Lung location: lower lobe of lung Hospice care patient Z51.5 Cerebral palsy G80.9 Cerebral palsy type: unspecified type History of intellectual disability Z86.59 Bladder carcinoma C67.9 Epilepsy G40.909 (5) Aspiration pneumonia Aspiration pneumonia type: unspecified Laterality: right Lung location: l ower lobe of lung Qualified Code(s): J69.0 - Pneumonitis due to inhalation of food and vomit (7) Cerebral palsy Cerebral palsy type: unspecified type Qualified Code(s): G80.9 - Cerebral palsy, unspecified
[2023-10-12 07:23] VITALS: RESP 18
[2023-10-12 07:51] VITALS: PULSE 98; TEMP 98.4; O2SAT 91
[2023-10-12 12:16] VITALS: BP 113/67
--- NOTE | 2023-10-12 18:43 | Discharge Summary ---
Date of Service October 12, 2023 Admission HPI Per Admitting Provider Donny Wang is a 63yo male with history of Cerebral palsy, Seizures, GERD and PAD presenting from [facility] with report of vomiting. History is obtained from caregiver at bedside. She reports that patient frequently gags and vomits with meals and after medications but has been vomiting more over the last several days. On 10/05/23 evening he was unable to take his medications due to vomiting. He was given Promethazine gel and Ativan. On 10/06/23 he ate well at breakfast and got up and got dressed. At 13:45 he had a large episode of vomiting. His emesis was black in color and appeared like jelly. Later in the evening he swallowed his medications but vomited shortly after. On 10/07/23 he took his morning medications without difficulty then had a bite of food for lunch and vomited again. His caregiver states that he never vomits his food or liquid that he takes in but the vomitus is always dark/black in color and appears like jelly and is sweet smelling. Patient is unable to endorse any complaints. Caregiver denies fever, chills, diarrhea. Patient has had history of food bolus in the past which resolved spontaneously In the ER he is afebrile, tachycardic on arrival with HR of 126. Blood pressure borderline low at 98/63 Patient is on hospice. 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 CTAB anteriorly Heart: Regular rate and rhythm, no murmurs. No JVD Abdomen: Soft, nontender, nondistended. Bowel sounds present. Extremities: Warm, dry, well-perfused. No extremity edema. contractures x 4 extremities Neuro: sleeping but was alert and ate well earlier per caregiver at bedside, face symmetric Discharge Data Allergies Allergy/AdvReac Type Severity Reaction Status Date / Time metoclopramide Allergy Intermediate Agitation Verified 03/21/23 09:31 Consultations 10/07/23 21:43 ED Decision to Admit Stat 10/07/23 23:59 Consult Gastroenterology Routine Ordered Studies 10/07/23 19:45 CT abd pelvis wo con Stat CT chest diagnostic wo con Stat CT soft tissue neck wo con Stat Chest X-Ray 10/07/23 17:23 XR chest 1V portable CLINICAL HISTORY: concern for aspiration TECHNIQUE: Single frontal radiograph of the chest was obtained. Comparison: Comparison is made to CT chest 12/09/2022 FINDINGS: No lines and tubes are seen. Cardiomegaly is noted. Reticular interstitial opacities are seen. No evidence of pleural effusion or pneumothorax. IMPRESSION: No airspace opacity to suggest aspiration. ACT 112: Negative or not required by law. Electronically signed by: Dylan Figueredo M.D. 10/07/2023 6:58 PM Abdomen/Pelvis CT 10/07/23 19:45 Exam(s): CT ABDOMEN + PELVIS Without Contrast EXAM: CT Abdomen and Pelvis Without Intravenous Contrast CLINICAL HISTORY: Reason for exam: vomiting. TECHNIQUE: Axial computed tomography images of the abdomen and pelvis without intravenous contrast. CTDI is 12.62 mGy and DLP is 590.72 mGy-cm. Automated exposure control was utilized for the study. A dose lowering technique was utilized adhering to the principles of ALARA. COMPARISON: CT abdomen and pelvis 05/02/22 FINDINGS: There are tree-in-bud opacities at the bilateral lung bases, right worse than left. There is small hiatal hernia with wall thickening distal esophagus. Unenhanced appearance of the liver, gallbladder, spleen, pancreas, and adrenal glands is unremarkable. Kidneys are similar in size and contour, without hydronephrosis. There is a punctate nonobstructing right kidney lower pole stone. There is no aortic aneurysm. There is no adenopathy, free fluid, or free air. Appendix is not visualized. There is no bowel obstruction or inflammation. There is a stable density along the inferior aspect of the cecum measuring 2.8 cm. Prostate is normal in size. Urinary bladder wall is thickened. There is a small left-sided bladder diverticulum. Hips appear dysplastic bilaterally. There are no acute fractures. There is levoscoliosis of the lumbar spine. IMPRESSION: 1. Bladder wall thickening is similar to prior CT and may reflect chronic bladder outlet obstruction. Correlate with urinalysis to exclude cystitis. 2. Punctate nonobstructing right kidney stone. No hydronephrosis. 3. Small hiatal hernia. Distal esophageal wall thickening suggesting esophagitis. 4. Tree-in-bud opacities at the lung bases, right greater than left, suggesting aspiration or pneumonia. 5. Stable density along the inferior aspect of the cecum measuring 2.8 cm, identity uncertain, potentially undescended right testis. Electronically signed by: Clarence Jerry M.D. 10/07/23 21:[address] 10/07/23 19:45 Exam(s): CT CHEST Without Contrast EXAM: CT Chest Without Intravenous Contrast CLINICAL HISTORY: Reason for exam: vomiting. TECHNIQUE: Axial computed tomography images of the chest without intravenous contrast. CTDI is 12.62 mGy and DLP is 590.72 mGy-cm. Automated exposure control was utilized for the study. A dose lowering technique was utilized adhering to the principles of ALARA. COMPARISON: No relevant prior studies available. FINDINGS: Lungs: There are widespread tree-in-bud opacities throughout the right upper, right middle, right lower lobe, with additional tree-in-bud opacities in the left lower lobe. Pleural space: Unremarkable. No pleural effusion or pneumothorax. Heart: Coronary artery atherosclerosis. No cardiomegaly or pericardial effusion. Bones/joints: Unremarkable. No acute fracture. No dislocation. Soft tissues: Unremarkable. Vasculature: No thoracic aortic aneurysm. Normal caliber main pulmonary artery. Lymph nodes: Unremarkable. No enlarged lymph nodes. IMPRESSION: Bilateral tree-in-bud opacities, extensive within the right lung. Consider infectious bronchiolitis, bronchopneumonia, or aspiration. Electronically signed by: Clarence Jerry M.D. 10/07/23 20:[address] 10/07/23 19:45 Exam(s): CT NECK Without Contrast EXAM: CT Neck Without Intravenous Contrast CLINICAL HISTORY: Reason for exam: vomiting. TECHNIQUE: Axial computed tomography images of the neck without intravenous contrast. CTDI is 12.62 mGy and DLP is 590.72 mGy-cm. Automated exposure control was utilized for the study. A dose lowering technique was utilized adhering to the principles of ALARA. COMPARISON: No relevant prior studies available. FINDINGS: Oropharynx: Unremarkable. No significant tonsillar enlargement. Hypopharynx: Unremarkable. Larynx: Unremarkable. Normal epiglottis. Trachea: Unremarkable. Retropharyngeal space: Unremarkable. Submandibular/parotid glands: Unremarkable. Glands are normal in size. Thyroid: Unremarkable. No enlarged or calcified nodules. Bones/joints: Degenerative changes in the cervical spine. No acute osseous findings. Soft tissues: Unremarkable. Vasculature: No acute findings. Lymph nodes: Unremarkable. No lymphadenopathy. Lung apices: Tree-in-bud opacities throughout the visualized right lung. IMPRESSION: 1. Tree-in-bud opacities throughout the visualized right lung. Consider infectious bronchiolitis, bronchopneumonia, or aspiration. Electronically signed by: Clarence Jerry M.D. 10/07/23 20:47 PM 10/08/23 12:40 10/08/23 06:01 Hospital Course (1) Acute upper gastrointestinal bleeding: coffee-ground emesis highly suggestive of UGI bleed esophageal or gastric source likely. esophagitis based on CT imaging. -treated with IV PPI and carafate, resolved -recommend increasing his PPI to bid for four weeks for esophagitis then decrease back to daily Gastroenterology consulted, no EGD planned - patient is hospice, comfort oriented care (2) Acute blood loss anemia: no transfusion at this time blood transfusion deferred - unlikely to provide significant benefit to him in light of declining status over the last several weeks (3) Esophagitis: (4) Sepsis: 2nd to #5 blood cx's neg to date urine cx neg (5) Aspiration pneumonia: Patient with chronic aspiration Suspect that with 1 of his recent vomiting episodes he aspirated again and now has aspiration pneumonia CT chest c/w aspiration pneumonia resp biofire was neg at admission -treated with pip-tazo x 6 days. Fevers and sepsis improved. Further antibiotics unlikely to be beneficial. Remained on room air. Oral intake improved and ate well by time of discharge (6) Cerebral palsy: severe (7) History of intellectual disability: severe (8) Bladder carcinoma: known diagnosis s/p TURBT in the past (9) Epilepsy: long-standing dx cont depakote cont keppra no seizures seen since admission (10) Hospice care patient: it has been confirmed that he is enrolled in [facility] has legal guardianship of Donny; no family are involved in his affairs given his hospice status the focus this admission was on maintaining comfort, preventing and treating symptoms (vomiting, resp distress, etc) discussed discharge plan of care with KHUSHI maradiaga [facility] at bedside on 10/12 Total Time Total Time Spent Total Time Spent (In Minutes): I personally spent: 45 minutes today on clinical care activities including: reviewing chart notes and vital signs examining the patient discussion with staff from his [facility] writing orders documentation Discharge Plan Discharge Items Patient Disposition: Personal Long Term Reason For Visit: VOMITING Discharge Diagnosis: aspiration pneumonia, upper GI bleeding due to esophagitis Activity: Resume your previous activity Non-emergency contact: Primary Care Provider Call non-emergency contact if: you have any medication questions and your symptoms worsen Follow-up/Referrals: Sofia Xie MD [Primary Care Provider] - 10/19/23 2:00 pm (Appointment will be with JAVI Vargas) Diet: Regular Diet Comment: resume usual diet texture Addtl Attending Provider Instructions: Vomiting leading to aspiration pneumonia -treated with 5-6 days IV antibiotics -may take acetaminophen as needed for fever Upper GI bleeding, likely caused by esophagitis based on CT imaging -treated with IV protonix, carafate -take pantoprazole 40 mg bid for 4 weeks then decrease to 40 mg daily for esophagitis Pending Studies at Discharge: No Stand-Alone Forms: [employer], Smoking Cessation Skilled Items Patient informed of condition?: No DNR: Yes Discharge Level of Care: Other Communicable Disease: No Discharge Prognosis: Stable Lines: None Urinary Catheter: No Medications and DC Order Prescriptions: Continued (DME) Briefs Medium Misc See Rx Instructions .ROUTE .MEDSUPPLY Qty: 100 5RF Rx Instructions: Medium Briefs diazepam [Diastat AcuDial] 5-7.5-10 mg kit 7.5 mg MN UD PRN (Reason: seizure activity) Qty: 1 0RF Rx Instructions: Give 1 dose rectally if seizure lasts longer than 5 minutes and call 911 (DME) CHAP STICK See Rx Instructions .Route .MEDSUPPLY Qty: 1 3RF Rx Instructions: As needed (DME) Manual Wheelchair Device See Rx Instructions .Route Qty: 1 0RF Rx Instructions: WHEELCHAIR REPAIRS Debrox 6.5 % drops 2 drp OTB 3XWK Qty: 15 11RF Rx Instructions: TUES, THURS, & SAT. budesonide 0.5 mg/2 mL suspension for nebulization 0.5 mg NEB BIDR Qty: 60 12RF clotrimazole 1 % cream 1 applic topical BID PRN (Reason: Rash) Qty: 30 12RF ketoconazole 2 % shampoo 1 applic TOPICAL 2XWK Qty: 120 12RF Rx Instructions: USE SHAMPOO TO SCALP EVERY TUESDAY AND TUESDAY loperamide [Imodium A-D] 2 mg capsule 2 mg PO UD MDD 4 DOSES/48 HOURS PRN (Reason: Diarrhea) Qty: 14 12RF Triple Antibiotic 3.5mg-400 unit- 5,000 unit/gram ointment 1 applic TOPICAL BID PRN (Reason: abrasions) Qty: 28.4 12RF triamcinolone acetonide 0.1 % cream 1 applic TOPICAL BID PRN (Reason: rash) Qty: 30 6RF Rx Instructions: Do not apply in same spot for longer than two weeks. polyethylene glycol 3350 17 gram/dose powder 17 g PO DAILY 30 Days Qty: 510 11RF Rx Instructions: Administer in 8 oz. fluid. levetiracetam [Keppra] 750 mg tablet 1,500 mg PO BID 90 Days Qty: 360 3RF Rx Instructions: Can be crushed and given with applesauce. loratadine [Claritin] 10 mg tablet 10 mg PO DAILY Qty: 90 3RF Rx Instructions: Can be crushed and given with applesauce. alum-mag hydroxide-simeth [Antacid-Simethicone] 400-400-40 mg/5 mL suspension 30 ml PO Q4H PRN (Reason: UPSET STOMACH/VOMITING) Qty: 355 12RF Rx Instructions: can be crushed and given in applesauce calcium carbonate-vitamin D3 [Oyster Shell Calcium-Vit D3] 500 mg-5 mcg (200 unit) tablet 1 tab PO DAILY 30 Days Qty: 30 5RF Rx Instructions: May Crush in Apple Sauce acetaminophen 325 mg tablet 650 mg PO Q6H MDD 3 GRAMS APAP/24 HOURS PRN (Reason: Fever Or Pain) Qty: 90 3RF Rx Instructions: NEEDED FOR HEADACHE/MINOR ACHES AND PAIN OR TEMPERATURE GREATER THAN 100 F. CAN BE CRUSHED AND GIVEN IN APPLESAUCE. docusate sodium [Stool Softener] 100 mg capsule 100 mg PO DAILY Qty: 90 3RF lorazepam 1 mg tablet 1 mg PO HS Qty: 15 5RF Rx Instructions: 1mg orally at bedtime; can be crushed in applesauce divalproex 125 mg capsule, delayed rel sprinkle 750 mg PO BID Qty: 180 12RF clindamycin phosphate 1 % swab 1 applic topical DAILY Qty: 60 11RF Rx Instructions: for acne (DME) nebulizers Misc See Rx Instructions .Route Qty: 1 0RF Rx Instructions: As directed [place] Saline Gel [place],Non-Aerosol 1 spray INTRANASAL BID Rx Instructions: apply to each nostril twice a day Aquaphor Healing 41 % Ointment 1 applic TOPICAL HS Rx Instructions: apply to irritated skin food supplemt, lactose-reduced Liquid 1 ea PO BID lorazepam 0.5 mg tablet 0.5 mg PO QAM Rx Instructions: 0.5 mg orally Take 1 tablet every AM; Can be crushed and given with applesauce bisacodyl 10 mg Suppository 10 mg MN .EVERY 3 DAYS PRN (Reason: no BM for constipation) Lubriderm Daily Moisture Lotion 1 applic TOPICAL BID ipratropium-albuterol 0.5 mg-3 mg(2.5 mg base)/3 mL solution for nebulization 3 ml NEB DAILY PRN (Reason: Shortness Of Breath) morphine concentrate 100 mg/5 mL (20 mg/mL) solution 10 mg PO Q2H PRN (Reason: Respiratory Distress) Rx Instructions: for hospice/palliative use ondansetron 4 mg tablet,disintegrating 6 mg PO Q6H PRN (Reason: nausea and vomiting) Rx Instructions: can be crushed and given with applesauce....1/2 tablet dose lorazepam 2 mg/mL Concentrate 1 mg SUBLINGUAL Q4 PRN (Reason: Anxiety) atropine 1 % Drops 2 drp sublingual .EVERY 1 HOUR PRN (Reason: terminal secretions) Saline Mist 0.65 % Aerosol,[place] 1 spray intranasal TID PRN (Reason: Dry Nasal Passages) Total Block Clear SPF 65 lotion 1 ea TOPICAL UD PRN (Reason: Sun Exposure) Bbaea-Vg-Dni Enema 19-7 gram/118 mL Enema 118 ml MN DAILY PRN (Reason: on day 4 of no BM) Preparation H 0.25-14-74.9 % Ointment 1 applic MN QID PRN (Reason: hemorroidal irritation) Rx Instructions: apply to hemorroids for irritation Promethazine Gel 25mg/Ml 1 ml topical Q6 PRN (Reason: Nausea And Vomiting) Changed pantoprazole [Protonix] 40 mg tablet,delayed release (DR/EC) 40 mg PO BID Qty: 60 0RF Rx Instructions: take twice a day for 30 days for esophagitis, after 30 days decrease to once a day Discharge Orders: Discharge Order (Routine); Ordered 10/12/23 Ordered By: Niya Azul Admission Data Admit Date/Time: 10/07/23 22:20 Attending Provider: Niya Azul Admit Provider: Zeenat López Primary Care Provider: Sofia Xie Other Providers: Zeenat López; Deandre Jama Jr Other Interventions: Discharge Summary Assessment (RN) Last Done: 10/12/23 12:14 Coding Level of Care Code 54814 INP/OBS DISCH >30 MIN Diagnoses Acute upper gastrointestinal bleeding K92.2 Acute blood loss anemia D62 Esophagitis K20.90 Sepsis A41.9 Aspiration pneumonia J69.0 Aspiration pneumonia type: unspecified Laterality: right Lung location: lower lobe of lung Cerebral palsy G80.9 Cerebral palsy type: unspecified type History of intellectual disability Z86.59 Bladder carcinoma C67.9 Epilepsy G40.909 Hospice care patient Z51.5
== END 2023-10-12 13:33 | disposition hospice, home (50) | DRG 951 ==
LOC: ED 17:08 → SUATTDRO 22:20 → 2W 22:20 → 3W 10-09 13:45
DX: K20.91 Esophagitis, unspecified with bleeding; G80.9 Cerebral palsy, unspecified; R47.01 Aphasia; A41.9 Sepsis, unspecified organism; Z85.51 Personal history of malignant neoplasm of bladder; F72 Severe intellectual disabilities; G40.909 Epilepsy, unspecified, not intractable, without status epilepticus; D64.9 Anemia, unspecified; Z99.3 Dependence on wheelchair; J69.0 Pneumonitis due to inhalation of food and vomit; D62 Acute posthemorrhagic anemia; Z51.5 Encounter for palliative care; Z66 Do not resuscitate; Z88.8 Allergy status to other drugs, medicaments and biological substances; K21.9 Gastro-esophageal reflux disease without esophagitis; I73.9 Peripheral vascular disease, unspecified

== ENCOUNTER 2024-11-12 09:16 | Inpatient (IN) ==
--- NOTE | 2024-11-12 09:32 | Emergency Department Note ---
Impression & Plan Aspiration pneumonia, Nonverbal, Anemia, Nausea & vomiting ED Provider Note NAME: RAMIRO LAZAR AGE: 64 SEX: M : 1960 ARRIVES VIA: Ambulance INFORMANT: Nursing report, caregiver ED PROVIDER(S): Mamadou Mojica MD CHIEF COMPLAINT: Vomiting, outpatient referral MEDICAL DECISION MAKING: Patient presents for the above. Reviewed the patient's most recent discharge summary shows the patient is on hospice care. Did attempt to call bowel the guardian at both extensions listed from Dr. Ovalle's note but while on the phone and dialing both extensions automated messaging stated that the extensions do not exist. Did speak with case management order to better flush out presentation as well as plan of care/goals of care. Next IV was established and blood work is obtained patient was ordered IV fluids and IV Zofran. Patient with coarse breath sounds bilaterally. Always concern for possible aspiration. Pro-Korey added along with chest and abdominal series. Patient's blood work does show white count of 18 with a hemoglobin of 5.6. The patient was ordered IV Zosyn. Platelet count 532. Kidney function is unremarkable. The patient's significant anemia is chronic and has been present since October. After discussion with the patient's caregiver they are still wishing for comfort measures only and are amenable to IV fluids antibiotics. Patient's x-rays do show concern for possible gastric distention. I did discuss this with the caregiver who stated they did not want an NG tube and would like to proceed with current plan of care. I did speak the on-call hospital service Kristyn Pugh with the resident service under Dr. Shah the patient was admitted to the medicine service. In light of the comfort measures only the patient was not consented for blood or ordered blood at this time. Discussion w/ other healthcare providers: Dr. Pugh with Dr. Musa inpatient medicine service Prior /Outside records reviewed: I reviewed part of a wellness visit from November 09. Patient seen by Dr. Xie. Patient does have a history of microcephaly aphasia PAD constipation adult failure to thrive and urinary incontinence. Did review part of a discharge summary from Niya Ovalle from October 12, 2023. Known history of CP seizures GERD PAD presenting from skilled due to concerns for vomiting. Differential diagnosis: Gastroenteritis, food borne illness, infection, appendicitis, diverticulitis, inflammatory bowel disease, obstruction among others were considered. Diagnostics, as interpreted by me: ECG: None Cardiac monitoring: An order was placed for continuous cardiac monitoring. The monitor shows a rate of 125 with tachycardic and regular rhythm. Patient was placed on pulse oximetry Medical decision rules: None Imaging studies: I informally interpreted the patient's chest and abdominal x-rays show the possibility of gastric bubble with formal report to follow. HPI: Patient presents due to concern for vomiting. Apparently just began this morning the patient was referred here for further evaluation treatment. Patient is unable to verbalize any complaint states he has a known history of CP and is nonverbal. Patient reportedly had some vomiting today prior history of esophageal varices. Per review of prior discharge summary patient is on hospice comfort measures only. PAST MEDICAL HISTORY: See Below PAST SURGICAL HISTORY: See Below SOCIAL HISTORY: See Below HOME MEDICATIONS: See Below ALLERGIES: See Below VITALS: See Below PHYSICAL EXAMINATION: GENERAL: NAD, non-toxic. EYE EXAM: Normal conjunctiva. PERRL, no anisocoria and EOM's grossly intact w/o pain. OROPHARYNX: Dry mucus membranes, grossly normal dentition. NECK: Trachea midline, no stridor. Supple, no nuchal rigidity, no adenopathy, non-tender. No signs of meningismus. FROM of the neck with good chin to chest and neck extension. LUNGS: Coarse breath sounds bilaterally. Normal chest wall mechanics. HEART: Tachycardic and regular, no MRG. ABDOMEN: Abdomen soft, non-tender, no masses, no rebound or guarding. BACK: No CVA TTP. SKIN: No rashes and no bruising. UPPER EXTREMITIES: Upper extremities are grossly normal. LOWER EXTREMITIES: Grossly normal, no edema. NEURO EXAM: Awake and alert. Past Med/Surg History Problem List (Updated 11/12/24 @ 17:38 by Mamadou Mojica MD) Nausea & vomiting (Acute) Anemia (Acute) Adult failure to thrive Urinary incontinence Esophagitis Aspiration pneumonia (Acute) Severe intellectual disabilities Nonverbal (Acute) Cerebral palsy (Acute) Epilepsy History of bladder cancer Hypotension Anemia (Acute) Microcephaly (Chronic) Aphasia (Chronic) Scoliosis (Chronic) Paroxysmal atrial tachycardia (Chronic) Allergic rhinitis (Chronic) Cataracts, both eyes (Chronic) Dermatitis (Chronic) PAD (peripheral artery disease) (Chronic) Chronic constipation (Chronic) Mood disorder (Chronic) Alternating exotropia (Chronic) Bladder carcinoma (Chronic) s/p TURBT 10/2021 History of prematurity (Chronic) Medical History Aspiration pneumonitis Palliative care encounter Aspiration into airway Pneumonia Acute dehydration Nausea & vomiting Atrial tachycardia Anemia Seizure Chronic periodontitis Ptosis, left eyelid Paraplegia Hyperlipidemia GERD (gastroesophageal reflux disease) Spina bifida Surgical History H/O transurethral destruction of bladder lesion 12/2021 History of removal of neck cyst Family History Other Family history non-contributory Social History Smoking Status: Never smoker Second Hand Exposure: No; Do You Dip or Chew Tobacco: No; Hx Alcohol Use: No Hx Substance Use: No Preferred Language: Yakut Communication Ability: Impaired Communication Ability Comment: Pt is non verbal Visual 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 Beliefs That Will Affect Care: None marital status: Single Current Living Situation: Boarding Home Current Living Situation Comment: detention current occupational status: disabled Feels Safe at Home: Yes Diet: regular caffeine: Yes Dental Care, Regularly: Yes Assistive Devices: Wheelchair Allergies Allergies Allergy/AdvReac Type Severity Reaction Status Date / Time metoclopramide Allergy Intermediate Agitation Verified 11/12/24 13:28 Home Meds Home Medications Medication Instructions Recorded Confirmed emollient combination no.92 1 applic topical BID 10/07/23 11/12/24 (Lubriderm Daily Moisture lotion) acetaminophen 325 mg tablet 650 mg PO DIRECTED PRN 11/12/24 11/12/24 Pain/Fever acetaminophen 650 mg rectal 650 mg NV Q4H PRN Pain/Fever 11/12/24 11/12/24 suppository bisacodyl 10 mg rectal suppository 10 mg NV DAILY PRN Constipation 11/12/24 11/12/24 calcium 500 mg (as 1 tab PO DAILY 11/12/24 11/12/24 carbonate)-vitamin D3 5 mcg (200 unit) tablet (Oyster Shell Calcium-Vitamin D3) carbamide peroxide 6.5 % ear drops 2 drp OTB 3XWK 11/12/24 11/12/24 (Debrox) diazepam 5 mg-7.5 mg-10 mg rectal 7.5 mg NV DIRECTED PRN seizure 11/12/24 11/12/24 kit activity food supplemt, lactose-reduced 1 ea PO BID 11/12/24 11/12/24 (Ensure oral liquid) lip protective (padimate o) 1 ea topical DAILY PRN Dry Lips 11/12/24 11/12/24 loperamide 2 mg capsule (Imodium 2 - 4 mg PO UD PRN Diarrhea 11/12/24 11/12/24 A-D) ondansetron 4 mg disintegrating 4 mg PO Q6H PRN nausea and vomiting 11/12/24 11/12/24 tablet polyethylene glycol 3350 17 17 g PO QAM 11/12/24 11/12/24 gram/dose oral powder (ClearLax) sodium phosphates 19 gram-7 118 ml NV DAILY PRN Constipation 11/12/24 11/12/24 gram/118 mL enema (Enema) sunscreen SPF 65 lotion (Total 1 ea topical DAILY PRN Sun Exposure 11/12/24 11/12/24 Block Clear) Previous Rx's Medication Instructions Recorded nebulizers #1 ea 07/13/22 CHAP STICK #1 ea 07/20/22 Wheelchair (Manual) (Manual #1 ea 10/26/22 Wheelchair) menthol 0.44 %-zinc oxide 20.6 % See Rx Instructions .Route 10/25/23 topical ointment (Calmoseptine) .COMPLEX #113 grams safety vest with straps #1 ea 05/02/24 Flex tilt wheel chair with foot #1 ea 05/02/24 rests and safety belt Gel pad #1 ea 05/02/24 divalproex 125 mg capsule,delayed 750 mg (6 x 125 mg) PO BID #360 08/27/24 release sprinkle caps lorazepam 0.5 mg tablet 0.5 mg PO QAM #30 tabs 09/18/24 budesonide 0.5 mg/2 mL suspension 0.5 mg (2 mL) NEB BIDR #60 mL 09/25/24 for nebulization clindamycin phosphate 1 % topical 1 applic topical DAILY #60 ea 09/25/24 swab clotrimazole 1 % topical cream 1 applic topical BID PRN Rash #30 09/25/24 grams docusate sodium 100 mg capsule 100 mg PO DAILY constipation #90 09/25/24 (Stool Softener) caps ipratropium 0.5 mg-albuterol 3 mg 3 ml NEB DAILY PRN Shortness Of 09/25/24 (2.5 mg base)/3 mL nebulization Breath #90 mL soln ketoconazole 2 % shampoo 1 applic topical 2XWK #120 mL 09/25/24 levetiracetam 750 mg tablet 1,500 mg (2 x 750 mg) PO BID 90 09/25/24 (Keppra) days #360 tabs loratadine 10 mg tablet (Claritin) 10 mg PO DAILY allergies #90 tabs 09/25/24 neomycin-bacitracn Zn-polymyx 3.5 1 applic topical BID PRN abrasions 09/25/24 mg-400 unit-5,000 unit/gram top #28.4 grams oint (Triple Antibiotic) pantoprazole 40 mg tablet,delayed 40 mg PO DAILY #90 tabs 09/25/24 release (Protonix) phenylephrine 0.25 %-mineral oil 1 applic NV QID PRN hemorroidal 09/25/24 14 %-petrolatm 74.9 % rectal irritation #57 grams ointment (Preparation H) sodium chloride 0.65 % nasal spray 1 spray intranasal TID PRN Dry 09/25/24 aerosol (Saline Mist) Nasal Passages #44 mL sodium chloride-aloe vera nasal 1 spray intranasal BID #22 mL 09/25/24 spray ([place] Saline Gel nasal spray) white petrolatum 41 % topical 1 applic topical HS #80 grams 09/25/24 ointment (Aquaphor Healing) foam bandage 4" X 4" (Optifoam) #100 ea 09/28/24 foam bandage 6" X 6" (Optifoam) #100 ea 09/28/24 tramadol 50 mg tablet 50 mg PO TID #90 tabs 10/12/24 triamcinolone acetonide 0.1 % 1 applic topical BID PRN rash #30 10/17/24 topical cream grams Alternating Pressure Pad Mattress #1 ea 10/18/24 Em Lift #1 ea 10/22/24 nebulizer and compressor #1 ea 10/22/24 Hospital Bed w/ Alternating #1 ea 10/25/24 Pressure Pad Mattress [facility] Bed Homecare #1 ea 10/26/24 lorazepam 1 mg tablet 1 mg PO HS #30 tabs 10/29/24 BEDSIDE TABLE #1 ea 10/30/24 FALL MAT #1 ea 10/30/24 diaper,brief,adult,disposable #200 ea 11/07/24 Results & Data (ED) Vital Signs Vital Signs - 24 hr 11/12/24 09:35 11/12/24 09:42 11/12/24 10:23 Temperature 36.5 C Temperature Source Oral Pulse Rate 123 H 124 H 117 H Pulse Rate [Apical] Respiratory Rate 26 H 24 Respiratory Effort / Characteristics Non-Labored Respiratory Depth Normal Blood Pressure 99/58 L Blood Pressure [Left Arm] Blood Pressure Mean 71 Blood Pressure Mean [Left Arm] Blood Pressure Position Lying Blood Pressure Position [Left Arm] Pulse Oximetry 93 97 Oxygen Delivery Method Room Air Room Air Oxygen Flow Rate Sepsis Recent Fever Within 48 Hours No Sepsis New/Unexplained Change in Mental Status No Sepsis Action Taken by Nursing Physician Notified 11/12/24 10:24 11/12/24 10:24 11/12/24 10:48 Temperature Temperature Source Pulse Rate Pulse Rate [Apical] 115 H Respiratory Rate 18 Respiratory Effort / Characteristics Non-Labored Spontaneous Respiratory Depth Blood Pressure Blood Pressure [Left Arm] 113/60 Blood Pressure Mean Blood Pressure Mean [Left Arm] 77 Blood Pressure Position Blood Pressure Position [Left Arm] Lying Pulse Oximetry 88 L 92 100 Oxygen Delivery Method Room Air Nasal Cannula Room Air Oxygen Flow Rate 2 Sepsis Recent Fever Within 48 Hours Sepsis New/Unexplained Change in Mental Status Sepsis Action Taken by [facility] Medications Current Medication List: was personally reviewed by me Laboratory Data Attestation: I reviewed the patient's lab results. 11/12/24 09:51 11/12/24 09:51 Lab Results 11/12/24 Range/Units 09:51 WBC 18.90 H (4.8-10.8) K/ul RBC 3.10 L (4.70-6.10) M/uL Hgb 5.6 L* (14.0-18.0) g/dl Hct 21.6 L (42.0-52.0) % MCV 69.7 L (80.0-100.0) fL MCH 18.1 L (25.0-34.0) pg MCHC 25.9 L (32.0-36.0) g/dL RDW Std Deviation 47.0 H (36.4-46.3) fL RDW Coeff of [place] 19.1 H (11.5-14.5) % Plt Count 532 H (130-400) K/uL MPV 9.7 (9.4-12.4) fL Immature Gran % (Auto) 1.1 % Neut % (Auto) 84.6 % Lymph % (Auto) 8.8 % [place] % (Auto) 5.2 % Eos % (Auto) 0.1 % Baso % (Auto) 0.2 % Neut # (Auto) 15.99 H (1.40-6.50) K/uL Lymph # (Auto) 1.67 (1.20-3.40) K/uL [place] # (Auto) 0.98 H (0.11-0.59) K/uL Eos # (Auto) 0.02 (0.00-0.50) K/uL Baso # (Auto) 0.04 (0.00-0.20) K/uL Immature Gran # (Auto) 0.20 (0.01-0.20) K/uL Toxic Granulation 1+ Polychromasia 1+ Hypochromasia Present Target Cells 1+ Ovalocytes 1+ Sodium 136 (136-145) mmol/L Potassium 4.2 (3.5-5.1) mmol/L Chloride 99 (98-107) mmol/L Carbon Dioxide 29 (21-32) mmol/L Anion Gap 8 (3-11) BUN 19 (6-23) mg/dl Creatinine 0.62 (0.6-1.4) mg/dl Est Cr Clr Drug Dosing 63.1 ml/min eGFR 108.07 BUN/Creatinine Ratio 30.6 H (10-20) Glucose 105 H (70-99(Fasting)) mg/dl Calcium 9.4 (8.6-10.3) mg/dl Total Bilirubin 0.2 (0.2-1.0) mg/dl AST 19 (13-39) U/L ALT 7 (7-52) U/L Alkaline Phosphatase 107 H (34-104) U/L Total Protein 7.5 (6.0-8.3) gm/dl Albumin 3.1 L (3.4-5.0) gm/dl Globulin 4.4 H (2.5-4.0) gm/dl Albumin/Globulin Ratio 0.7 L (0.9-2) Lipase 15 (11-82) U/L Procalcitonin 0.43 (0-0.5) ng/ml Administered Medications Levetiracetam (Levetiracetam 500 Mg Tab) 1,500 mg PO BID MALCOLM Stop: 12/12/24 13:34 Last Admin: 11/12/24 14:51 Dose: 1,500 mg Documented By: SMITH Lorazepam (Lorazepam 0.5 Mg Tab) 0.5 mg PO QAM MALCOLM Stop: 12/12/24 13:44 Last Admin: 11/12/24 14:02 Dose: 0.5 mg Documented By: SMITH Tramadol HCl (Tramadol Hcl 50 Mg Tablet) 50 mg PO TID MALCOLM Stop: 12/12/24 13:59 Last Admin: 11/12/24 14:02 Dose: 50 mg Documented By: SMITH Discontinued Medications Calamine/Phenol (Menthol-Zinc Oxide 360 Appln/120 Gm Tube) 0 appln EXT QS MALCOLM Stop: 12/12/24 15:59 Last Admin: 11/12/24 16:48 Dose: Not Given Documented By: SMITH Sodium Chloride (Nss) 1,000 mls @ 999 mls/hr IV .Q1H1M ONE Stop: 11/12/24 10:47 Last Infusion: 11/12/24 11:11 Dose: Infused Documented By: Admin: 11/12/24 10:02 Dose: 999 mls/hr Documented By: NATASHA Piperacillin Sod/Tazobactam Sod (Zosyn) 4.5 gm in 100 mls @ 200 mls/hr IV NOW ONE; Protocol Stop: 11/12/24 11:02 Last Infusion: 11/12/24 12:59 Dose: Infused Documented By: Admin: 11/12/24 11:30 Dose: 200 mls/hr Documented By: SMITH Lactated Ringer's (Lr) 500 mls @ 999 mls/hr IV .Q31M ONE Stop: 11/12/24 13:30 Last Infusion: 11/12/24 14:18 Dose: Infused Documented By: Admin: 11/12/24 13:16 Dose: 999 mls/hr Documented By: SMITH Ondansetron HCl (Ondansetron Inj 2 Mg/Ml 2 Ml Vial) 4 mg IV NOW STA Stop: 11/12/24 09:48 Last Admin: 11/12/24 10:02 Dose: 4 mg Documented By: NATASHA Imaging Data Radiologist's Impression: Chest/Abdomen X-ray 11/12/24 09:49 XR abdomen 2V w PA chest CLINICAL HISTORY: vomiting COMPARISON STUDY: 04/25/2022 FINDINGS: Portable semierect chest and supine and decubitus views of the abdomen were obtained. Severe upper lumbar scoliosis is redemonstrated. Prominent reticular markings are noted in both lungs probably unchanged since the prior study. If dyspnea is present, aspiration should be considered. There is gaseous distention of stomach with air-fluid levels on decubitus views. There is very little bowel gas distal to the stomach. Suspected gastric outlet obstruction or perforation as. IMPRESSION: Limited study due to patient condition. Bibasilar reticular airspace opacities likely chronic. Cannot exclude acute or recurrent aspiration. Gaseous distention in the upper abdomen most consistent with a dilated stomach. Consider nasogastric tube decompression and reevaluation. ACT 112: Negative or not required by law. Electronically signed by: Eleni Dunn M.D. 11/12/2024 10:38 AM Discharge Plan Visit Data Chief Complaint: Vomiting Stated Complaint: VOMITING ED Provider: Mamadou Mojica Discharge Problem: Aspiration pneumonia, Nonverbal, Anemia, Nausea & vomiting Patient Disposition: Admitted As Inpatient Discharge Instructions Interventions: ED Discharge Assessment Last Done: 11/12/24 12:17 Discharge Problem: Aspiration pneumonia Qualifiers: Aspiration pneumonia type: unspecified Laterality: unspecified laterality Lung location: unspecified part of lung Qualified Code(s): J69.0 - Pneumonitis due to inhalation of food and vomit Anemia Qualifiers: Anemia type: unspecified type Qualified Code(s): D64.9 - Anemia, unspecified Nausea & vomiting Qualifiers: Vomiting type: unspecified Qualified Code(s): R11.2 - Nausea with vomiting, unspecified
[2024-11-12] MEDS: ONDANSETRON INJ 2 MG/ML 2 ML VIAL IV STA (10:02)
[2024-11-12] MEDS: SODIUM CHLORIDE 0.9% 1,000 ML IV ONE (10:02)
[2024-11-12 10:29] LABS: Albumin Globulin Ratio 0.7 (0.9-2); Albumin Level 3.1 gm/dl (3.4-5.0); BUN Creatinine Ratio 30.6 (10-20); Bilirubin,Total 0.2 mg/dl (0.2-1.0); Calcium 9.4 mg/dl (8.6-10.3); Creatinine Clr Calc Pharmacy 63.1 ml/min; Globulin 4.4 gm/dl (2.5-4.0); Potassium 4.2 mmol/L (3.5-5.1); Total Protein 7.5 gm/dl (6.0-8.3)
[2024-11-12 10:31] LABS: Hematocrit (blood only) 21.6 % (42.0-52.0); Hemoglobin 5.6 g/dl (14.0-18.0); Mean Corpuscular Hemoglobin 18.1 pg (25.0-34.0); Mean Corpuscular Hgb Conc 25.9 g/dL (32.0-36.0); Mean Corpuscular Volume 69.7 fL (80.0-100.0); Mean Platelet Volume 9.7 fL (9.4-12.4); Platelet Count 532 K/uL (130-400); RDW Coefficient of Variation 19.1 % (11.5-14.5)
--- NOTE | 2024-11-12 10:39 | XRay Report ---
XR abdomen 2V w PA chest CLINICAL HISTORY: vomiting COMPARISON STUDY: 04/25/2022 FINDINGS: Portable semierect chest and supine and decubitus views of the abdomen were obtained. Sever e upper lumbar scoliosis is redemonstrated. Prominent reticular markings are noted in both lungs prob ably unchanged since the prior study. If dyspnea is present, aspiration should be considered. There is gaseous distention of stomach with air-fluid levels on decubitus views. There is very little bowel gas distal to the stomach. Suspected gastric outlet obstruction or perforation as. IMPRESSION: Limited study due to patient condition. Bibasilar reticular airspace opacities likely ch ronic. Cannot exclude acute or recurrent aspiration. Gaseous distention in the upper abdomen most consistent with a dilated stomach. Consider nasogastric tube decompression and reevaluation. ACT 112: Negative or not required by law. Electronically signed by: Eleni Dunn M.D. 11/12/2024 10:38 AM
--- NOTE | 2024-11-12 11:02 | History & Physical Report ---
Date of Service November 12, 2024 Assessment & Plan (1) Aspiration pneumonia: (2) Adult failure to thrive: (3) Anemia: (4) Nausea & vomiting: (5) Epilepsy: (6) Cerebral palsy: Plan 64 year old male with a past medical history of intellectual disability, cerebral palsy, failure to thrive presenting after episode of dark brown emesis. Was up hospice up until about a month ago, goals of care still align with palliative/comfort, no family, POA is Radha (nurse at facility). #Anemia/Nausea, vomiting/?GI bleed - ?GI bleed vs SOB with emesis as presenting symptoms-> no further episodes. - zofran prn - as per discussion with Radha no transfusion/scope - Hgb= 5.6, stable from 5.3 about a year ago -mildly tachycardic in the 110s with BPs 100s/60s - s/p 1L IVF in ED will give an additional 500mL bolus - Switch from pantoprazole PO daily to IV pantoprazole BID - Purred diet with thin liquids #Leukocytosis/History of Aspiration PNA - concern aspiration PNA given leukocytosis, exam and imaging - s/p Zosyn in ED-> will plan to transition to Rocephin Stable/Chronic: Epilepsy: Continue with home mediations-> diazepam prn, Depakote, Keppra Diet: Pureed, thin liquids -> permissive aspiration Code; DNR/DNI VTE Prophylaxis: hold chemical with ?GI bleed History of Present Illness Primary Care Provider: Sofia Xie MD 64 year old male with a past medical history of cerebral palsy, intellectual disability, bladder cancer presenting after vomiting this morning. Pt is non- verbal, History obtained from aid at bedside. One episode of emesis this morning dark brown in color. Last BM was this morning, history of constipation- suppository last night. Otherwise has been in normal health. Was on hospice up until about a month ago, when he was taking off because he was been stable. POA Radha states that generally palliative goals of care. Ok with antibiotics and IVF. ED course significant for: WBC= 18.9, Hgb= 5.6, plts= 532, CMP unremarkable. KUB with Bibasilar reticular airspace opacities likely chronic. Cannot exclude acute or recurrent aspiration.Gaseous distention in the upper abdomen most consistent with a dilated stomach. S/p Zosyn, 1L IVF Allergies Allergy/AdvReac Type Severity Reaction Status Date / Time metoclopramide Allergy Intermediate Agitation Verified 11/12/24 13:28 Home Medications Medication Instructions Recorded Confirmed Type nebulizers #1 ea 07/13/22 10/18/24 Rx CHAP STICK #1 ea 07/20/22 10/18/24 Rx Wheelchair (Manual) (Manual #1 ea 10/26/22 10/18/24 Rx Wheelchair) emollient combination no.92 1 applic topical BID 10/07/23 11/12/24 History (Lubriderm Daily Moisture lotion) menthol 0.44 %-zinc oxide 20.6 % See Rx Instructions .Route 10/25/23 11/12/24 Rx topical ointment (Calmoseptine) .COMPLEX #113 grams safety vest with straps #1 ea 05/02/24 10/18/24 Rx Flex tilt wheel chair with foot #1 ea 05/02/24 10/18/24 Rx rests and safety belt Gel pad #1 ea 05/02/24 10/18/24 Rx divalproex 125 mg capsule,delayed 750 mg (6 x 125 mg) PO BID #360 08/27/24 11/12/24 Rx release sprinkle caps lorazepam 0.5 mg tablet 0.5 mg PO QAM #30 tabs 09/18/24 11/12/24 Rx budesonide 0.5 mg/2 mL suspension 0.5 mg (2 mL) NEB BIDR #60 mL 09/25/24 11/12/24 Rx for nebulization clindamycin phosphate 1 % topical 1 applic topical DAILY #60 ea 09/25/24 11/12/24 Rx swab clotrimazole 1 % topical cream 1 applic topical BID PRN Rash #30 09/25/24 11/12/24 Rx grams docusate sodium 100 mg capsule 100 mg PO DAILY constipation #90 09/25/24 11/12/24 Rx (Stool Softener) caps ipratropium 0.5 mg-albuterol 3 mg 3 ml NEB DAILY PRN Shortness Of 09/25/24 11/12/24 Rx (2.5 mg base)/3 mL nebulization Breath #90 mL soln ketoconazole 2 % shampoo 1 applic topical 2XWK #120 mL 09/25/24 11/12/24 Rx levetiracetam 750 mg tablet 1,500 mg (2 x 750 mg) PO BID 90 09/25/24 11/12/24 Rx (Keppra) days #360 tabs loratadine 10 mg tablet (Claritin) 10 mg PO DAILY allergies #90 tabs 09/25/24 11/12/24 Rx neomycin-bacitracn Zn-polymyx 3.5 1 applic topical BID PRN abrasions 09/25/24 11/12/24 Rx mg-400 unit-5,000 unit/gram top #28.4 grams oint (Triple Antibiotic) pantoprazole 40 mg tablet,delayed 40 mg PO DAILY #90 tabs 09/25/24 11/12/24 Rx release (Protonix) phenylephrine 0.25 %-mineral oil 1 applic ND QID PRN hemorroidal 09/25/24 11/12/24 Rx 14 %-petrolatm 74.9 % rectal irritation #57 grams ointment (Preparation H) sodium chloride 0.65 % nasal spray 1 spray intranasal TID PRN Dry 09/25/24 11/12/24 Rx aerosol (Saline Mist) Nasal Passages #44 mL sodium chloride-aloe vera nasal 1 spray intranasal BID #22 mL 09/25/24 11/12/24 Rx spray ([place] Saline Gel nasal spray) white petrolatum 41 % topical 1 applic topical HS #80 grams 09/25/24 11/12/24 Rx ointment (Aquaphor Healing) foam bandage 4" X 4" (Optifoam) #100 ea 09/28/24 10/18/24 Rx foam bandage 6" X 6" (Optifoam) #100 ea 09/28/24 10/18/24 Rx tramadol 50 mg tablet 50 mg PO TID #90 tabs 10/12/24 11/12/24 Rx triamcinolone acetonide 0.1 % 1 applic topical BID PRN rash #30 10/17/24 11/12/24 Rx topical cream grams Alternating Pressure Pad Mattress #1 ea 10/18/24 10/18/24 Rx Em Lift #1 ea 10/22/24 10/22/24 Rx nebulizer and compressor #1 ea 10/22/24 10/22/24 Rx Hospital Bed w/ Alternating #1 ea 10/25/24 Rx Pressure Pad Mattress Hospital Bed Homecare #1 ea 10/26/24 Rx lorazepam 1 mg tablet 1 mg PO HS #30 tabs 10/29/24 11/12/24 Rx BEDSIDE TABLE #1 ea 10/30/24 Rx FALL MAT #1 ea 10/30/24 Rx diaper,brief,adult,disposable #200 ea 11/07/24 Rx acetaminophen 325 mg tablet 650 mg PO DIRECTED PRN 11/12/24 11/12/24 History Pain/Fever acetaminophen 650 mg rectal 650 mg ND Q4H PRN Pain/Fever 11/12/24 11/12/24 History suppository bisacodyl 10 mg rectal suppository 10 mg ND DAILY PRN Constipation 11/12/24 11/12/24 History calcium 500 mg (as 1 tab PO DAILY 11/12/24 11/12/24 History carbonate)-vitamin D3 5 mcg (200 unit) tablet (Oyster Shell Calcium-Vitamin D3) carbamide peroxide 6.5 % ear drops 2 drp OTB 3XWK 11/12/24 11/12/24 History (Debrox) diazepam 5 mg-7.5 mg-10 mg rectal 7.5 mg ND DIRECTED PRN seizure 11/12/24 11/12/24 History kit activity food supplemt, lactose-reduced 1 ea PO BID 11/12/24 11/12/24 History (Ensure oral liquid) lip protective (padimate o) 1 ea topical DAILY PRN Dry Lips 11/12/24 11/12/24 History loperamide 2 mg capsule (Imodium 2 - 4 mg PO UD PRN Diarrhea 11/12/24 11/12/24 History A-D) ondansetron 4 mg disintegrating 4 mg PO Q6H PRN nausea and vomiting 11/12/24 History tablet polyethylene glycol 3350 17 17 g PO QAM 11/12/24 11/12/24 History gram/dose oral powder (ClearLax) sodium phosphates 19 gram-7 118 ml ND DAILY PRN Constipation 11/12/24 11/12/24 History gram/118 mL enema (Enema) sunscreen SPF 65 lotion (Total 1 ea topical DAILY PRN Sun Exposure 03/10/25 03/10/25 History Block Clear) Past Med/Surg History Problem List (Updated 10/18/24 @ 09:16 by Noelle Malagon PA-C) Adult failure to thrive Urinary incontinence Esophagitis Aspiration pneumonia (Acute) Severe intellectual disabilities Nonverbal (Acute) Cerebral palsy (Acute) Epilepsy History of bladder cancer Hypotension Anemia (Acute) Microcephaly (Chronic) Aphasia (Chronic) Scoliosis (Chronic) Paroxysmal atrial tachycardia (Chronic) Allergic rhinitis (Chronic) Cataracts, both eyes (Chronic) Dermatitis (Chronic) PAD (peripheral artery disease) (Chronic) Chronic constipation (Chronic) Mood disorder (Chronic) Alternating exotropia (Chronic) Bladder carcinoma (Chronic) s/p TURBT 10/2021 History of prematurity (Chronic) Medical History Aspiration pneumonitis Palliative care encounter Aspiration into airway Pneumonia Acute dehydration Nausea & vomiting Atrial tachycardia Anemia Seizure Chronic periodontitis Ptosis, left eyelid Paraplegia History of prematurity Bladder carcinoma s/p TURBT 10/2021 Alternating exotropia Hyperlipidemia Mood disorder Chronic constipation PAD (peripheral artery disease) Dermatitis Cataracts, both eyes Severe intellectual disabilities Allergic rhinitis GERD (gastroesophageal reflux disease) Epilepsy Paroxysmal atrial tachycardia Cerebral palsy Scoliosis Spina bifida Aphasia Microcephaly Surgical History H/O transurethral destruction of bladder lesion History of removal of neck cyst Family History Other Family history non-contributory Social History Smoking Status: Never smoker Second Hand Exposure: No; Do You Dip or Chew Tobacco: No; Hx Alcohol Use: No Hx Substance Use: No Preferred Language: Bengali Communication Ability: Impaired Communication Ability Comment: Pt is non verbal Visual 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 Limited Global Chief Experience Officer Required: No Beliefs That Will Affect Care: None marital status: Single Current Living Situation: Boarding Home Current Living Situation Comment: halfway current occupational status: disabled Feels Safe at Home: Yes Diet: regular caffeine: Yes Dental Care, Regularly: Yes Assistive Devices: Wheelchair Review of Systems Review of Systems: Unobtainable due to cognitive status Physical Exam Physical Exam: Constitutional: no acute distress HEENT: NCAT, no conjunctival injection CV: regular rhythm, no murmur appreciated, extremities well-perfused, no LE edema Resp: +rhonchi bases B/L no increased work of breathing GI: soft, nondistended, nontender, BS normoactive MSK: no gross deformities appreciated Skin: warm, dry, no rash appreciated Neuro: no focal neurologic deficit appreciated Results & Data Results & Data Vital Signs (Past 12 Hours) Vital Signs Temp Pulse Resp BP Pulse Ox O2 Del Method O2 Flow Rate 11/12/24 10:24 92 Nasal Cannula 2 11/12/24 10:24 88 L Room Air 11/12/24 10:23 117 H 24 97 Room Air 11/12/24 09:42 36.5 C 124 H 26 H 99/58 L 93 Room Air 11/12/24 09:35 123 H Supervising Physician Co-Signing Physician Notes I personally examined the patient and verified all dang points of history and exam, discussed case, and agree with decision making with Dr Pugh No meaningful HPI review of systems obtainable from patient. Discussed with PCPgoals of care been a little bit influxbut overall palliative. The nurse that knows her best was present at the bedside whenever I arrived (was not there previously for Dr. Pugh)she notes that patient was on hospice but hospice had been revoked basically because he was not declining fast enoughbut overall he still would fit with palliative goals of care. She notes that she feels that something like antibiotics to treat pneumonia if present would be of benefit, and fluids to assist with management of dehydrationespecially given that he was eating and drinking normally up through yesterday, but would not believe he would want anything invasive/interventional. Vitals noted, in general he is lay ing on his side appears to be curled up, chronically frailbut fortunately no acute distress. HEENT normocephalic atraumatic mucous membranes moist. Cardio shows his rates to be somewhat tachycardic. Breathing unlabored no accessory muscle use good effort. Skin without rashes, surprisingly does not appear all that pale, no icterus. Neuro with what appears to be chronic contractures. Nausea vomitingcould be as simple as the enteritis going around, at the same time he has apparently repeated upper GI symptoms and anemia that certainly could be fitting with a more ominous upper GI process. That said, and outlining his goals of care, he/his caregivers would not want anything invasive donesymptomatic care only. Leukocytosisprobably demargination from vomiting, cannot rule out aspiration pneumonia at this time. Covering with ceftriaxone for now. If nothing serious ensues, can probably DC ceftriaxone reasonably quickly. Profound anemialikely relates to his upper GI processagain as noted his goals of care are consistent with not wanting anything invasive done including scopes/transfusions/etc.etc. symptomatic care only in this respect. IV fluids may be helpful with tachycardia dispositionadmit for now, manage symptoms, encourage p.o. intakeif he is able to eat and drink well and his caregivers feel that he is back to his baseline, likely discharge in the near future. Otherwise as above. Resident Activity Tracking Resident Involvement: Resident Care Provided Care Provided: Adult Hospital Medicine (1) Aspiration pneumonia Aspiration pneumonia type: unspecified Laterality: right Lung location: lower lobe of lung Qualified Code(s): J69.0 - Pneumonitis due to inhalation of food and vomit (3) Anemia Anemia type: unspecified type Qualified Code(s): D64.9 - Anemia, unspecified (4) Nausea & vomiting Vomiting type: unspecified Qualified Code(s): R11.2 - Nausea with vomiting, unspecified (6) Cerebral palsy Cerebral palsy type: unspecified type Qualified Code(s): G80.9 - Cerebral palsy, unspecified
[2024-11-12 11:04] LABS: Basophils # (auto) 0.04 K/uL (0.00-0.20); Basophils % (auto) 0.2 %; Eosinophils # (auto) 0.02 K/uL (0.00-0.50); Eosinophils % (auto) 0.1 %; Hypochromasia Present; Immature Granulocytes % (auto) 1.1 %; Lymphocytes # (auto) 1.67 K/uL (1.20-3.40); Lymphocytes % (auto) 8.8 %; Monocytes # (auto) 0.98 K/uL (0.11-0.59); Monocytes % (auto) 5.2 %; Neutrophils # (auto) 15.99 K/uL (1.40-6.50); Neutrophils % (auto) 84.6 %; Ovalocytes 1+; Polychromasia 1+; Target Cells 1+; Toxic Granulation 1+
[2024-11-12] MEDS: PIPERACILLIN/TAZOBACTAM 4.5 GM/100 ML BAG IV ONE (11:30)
[2024-11-12] MEDS: LACTATED RINGER'S 500 ML IV ONE (13:16)
[2024-11-12] MEDS ORDERED: ALBUT/IPRATROP 3MG/0.5MG NEB 3 ML VIAL NEB PRN (13:29)
[2024-11-12] MEDS ORDERED: diazePAM RECTAL 2.5 MG GEL PR PRN (13:29)
[2024-11-12] MEDS ORDERED: bisacodyL 10 MG SUPP PR PRN (13:29)
[2024-11-12] MEDS ORDERED: CLOTRIMAZOLE 1% CR 15 GM TUBE TOP PRN (13:29)
[2024-11-12] MEDS: traMADol HCL 50 MG TABLET PO SCH (14:02)
[2024-11-12] MEDS: LORazepam 0.5 MG TAB PO SCH (14:02)
--- NOTE | 2024-11-12 14:45 | Billing Data ---
Date of Service November 12, 2024 Coding Level of Care Code 49793 INT INP/OBS CARE
[2024-11-12] MEDS: levETIRAcetam 500 MG TAB PO SCH (14:51)
[2024-11-12] MEDS: MENTHOL-ZINC OXIDE 360 APPLN/120 GM TUBE EXT SCH (16:48)
[2024-11-12] MEDS ORDERED: MENTHOL-ZINC OXIDE 360 APPLN/120 GM TUBE EXT PRN (16:56)
[2024-11-12] MEDS: SODIUM CHLORIDE 0.9% 500 ML IV ONE (19:09)
[2024-11-12] MEDS: SODIUM CHLORIDE 0.9% 1,000 ML IV SCH (19:09)
[2024-11-12] MEDS: cefTRIAXone SODIUM 2,000 MG/50 ML BAG IV SCH (19:18)
[2024-11-12] MEDS: ACETAMINOPHEN 325 MG TAB PO PRN (19:32)
[2024-11-12] MEDS: BUDESONIDE 0.5 MG/2 ML VIAL (PULMICORT) NEB SCH (19:39)
[2024-11-12] MEDS ORDERED: NON-FORMULARY MEDICATION (Food Supplemt, Lactose-Reduced [Ensure] Liquid) PO SCH (21:00)
[2024-11-12] MEDS ORDERED: NON-FORMULARY MEDICATION (Emollient Combination No.92 [Lubriderm Daily Moisture] Lotion) TOP SCH (21:00)
[2024-11-12] MEDS: ACETAMINOPHEN 325 MG TAB PO SCH (21:18)
[2024-11-12] MEDS: DIVALPROEX SODIUM SPRINKLE/DEL-REL 125 MG CAP PO SCH (21:18)
[2024-11-12] MEDS: LORazepam 1 MG TAB PO SCH (21:18)
[2024-11-12] MEDS: PANTOprazole 40 MG/10 ML SYR IV SCH (21:19)
[2024-11-13 07:36] LABS: BUN Creatinine Ratio 45.5 (10-20); Calcium 8.4 mg/dl (8.6-10.3); Creatinine Clr Calc Pharmacy 87.4 ml/min; Potassium 3.8 mmol/L (3.5-5.1)
[2024-11-13 07:59] LABS: Basophils # (auto) 0.02 K/uL (0.00-0.20); Basophils % (auto) 0.2 %; Eosinophils # (auto) 0.05 K/uL (0.00-0.50); Eosinophils % (auto) 0.5 %; Hematocrit (blood only) 15.4 % (42.0-52.0); Hemoglobin 3.9 g/dl (14.0-18.0); Hypochromasia Present; Immature Granulocytes # (auto) 0.06 K/uL (0.01-0.20); Immature Granulocytes % (auto) 0.6 %; Lymphocytes # (auto) 1.44 K/uL (1.20-3.40); Lymphocytes % (auto) 13.8 %; Mean Corpuscular Hgb Conc 25.3 g/dL (32.0-36.0); Mean Platelet Volume 10.2 fL (9.4-12.4); Microcytosis Present; Monocytes # (auto) 0.72 K/uL (0.11-0.59); Monocytes % (auto) 6.9 %; Neutrophils # (auto) 8.11 K/uL (1.40-6.50); Ovalocytes 1+; Platelet Count 351 K/uL (130-400); RDW Standard Deviation 48.7 fL (36.4-46.3); Red Blood Count 2.17 M/uL (4.70-6.10); Target Cells 2+; Tear Drop Cells 1+
[2024-11-13] MEDS: LORATADINE 10 MG TAB PO SCH (08:18)
[2024-11-13] MEDS: CALCIUM 600MG + VIT D 400 IU TAB PO SCH (08:19)
[2024-11-13] MEDS: POLYETHYLENE (MIRALAX) 17 GM PACK PO SCH (08:33)
[2024-11-13] MEDS ORDERED: PANTOprazole 40 MG TAB PO SCH (09:00)
[2024-11-13] MEDS ORDERED: ATROPINE SULFATE 1% OP SOLN 5 ML BTL SL PRN (10:15)
[2024-11-13] MEDS: KETOCONAZOLE 2% SHAMPOO 120 ML BTL EXT SCH (10:25)
[2024-11-13] MEDS: DOCUSATE SODIUM 100 MG CAP PO SCH (10:33)
[2024-11-13] MEDS: CARBAMIDE PEROXIDE 6.5% 15 ML BTL OTB SCH (20:55)
--- NOTE | 2024-11-13 23:13 | Hospitalist Progress Note ---
Date of Service November 13, 2024 Assessment & Plan (1) Aspiration pneumonia: (2) Adult failure to thrive: (3) Anemia: (4) Nausea & vomiting: (5) Epilepsy: (6) Cerebral palsy: Plan 64 year old male with a past medical history of intellectual disability, cerebral palsy, failure to thrive presenting after episode of dark brown emesis. Was up hospice up until about a month ago, goals of care still align with palliative/comfort, no family, POA is Radha (nurse at facility). #Anemia/Nausea, vomiting/?GI bleed - ?GI bleed vs SOB with emesis as presenting symptoms-> no further episodes. - zofran prn - as per discussion with Radha no transfusion/scope - Hgb= below 4, likely active bleeding, discussed with aRdha who discussed with Sammi. Given lower hemoglobin, and vitals showing signs of hypotension, patient will likely not improve without intervention. will transition to comfort measures. will stop PPI. will work on inpatient hospice, informed case management. - Purred diet with thin liquids #Leukocytosis/History of Aspiration PNA - concern aspiration PNA given leukocytosis, exam and imaging - s/p Zosyn in ED-> will plan to transition to Rocephin Stable/Chronic: Epilepsy: Continue with home mediations-> diazepam prn, Depakote, Keppra Diet: Pureed, thin liquids -> permissive aspiration Code; DNR/DNI on comfort. VTE Prophylaxis: hold chemical with ?GI bleed Admission and Anticipated Discharge Date Admission Date: November 12, 2024 Subjective 64 yo male on comfort measures. Patient is comfortable. Physical Exam Physical Exam: Constitutional: no acute distress HEENT: NCAT, no conjunctival injection CV: regular rhythm, no murmur appreciated, extremities well-perfused, no LE edema Resp: +rhonchi bases B/L no increased work of breathing GI: soft, nondistended, nontender, BS normoactive MSK: no gross deformities appreciated Skin: warm, dry, no rash appreciated Neuro: no focal neurologic deficit appreciated PG Care Time/CCT Total # of Minutes Spent Total Time Spent with Patient: Total time spent is greater than 50% in coordination of care (as documented) at patient's floor/unit and/or counseling patient: Coding Level of Care Code 89103 SUB INP/OBS CARE 3/50MIN Diagnoses Aspiration pneumonia J69.0 Aspiration pneumonia type: unspecified Laterality: unspecified laterality Lung location: unspecified part of lung Adult failure to thrive R62.7 Anemia D64.9 Anemia type: unspecified type Nausea & vomiting R11.2 Vomiting type: unspecified Epilepsy G40.909 Cerebral palsy G80.9 Cerebral palsy type: unspecified type (1) Aspiration pneumonia Aspiration pneumonia type: unspecified Laterality: unspecified laterality Lung location: unspecified part of lung Qualified Code(s): J69.0 - Pneumonitis due to inhalation of food and vomit (3) Anemia Anemia type: unspecified type Qualified Code(s): D64.9 - Anemia, unspecified (4) Nausea & vomiting Vomiting type: unspecified Qualified Code(s): R11.2 - Nausea with vomiting, unspecified (6) Cerebral palsy Cerebral palsy type: unspecified type Qualified Code(s): G80.9 - Cerebral palsy, unspecified
[2024-11-14] MEDS: ONDANSETRON 4 MG OD TAB PO PRN (08:59)
[2024-11-14] MEDS: PROCHLORPERAZINE 5 MG in SYRINGE 4 ML IV PRN (14:53)
[2024-11-14] MEDS: LORazepam 0.5 MG TAB PO PRN (16:32)
--- NOTE | 2024-11-14 19:00 | Hospitalist Progress Note ---
Date of Service November 14, 2024 Assessment & Plan (1) Aspiration pneumonia: (2) Adult failure to thrive: (3) Anemia: (4) Nausea & vomiting: (5) Epilepsy: (6) Cerebral palsy: Plan 64 year old male with a past medical history of intellectual disability, cerebral palsy, failure to thrive presenting after episode of dark brown emesis. Was up hospice up until about a month ago, goals of care still align with palliative/comfort, no family, POA is Radha (nurse at facility). #Anemia/Nausea, vomiting/?GI bleed - ?GI bleed vs SOB with emesis as presenting symptoms-> no further episodes. - zofran prn - as per discussion with Radha no transfusion/scope - Hgb= below 4, likely active bleeding, discussed with Radha who discussed with Sammi. Given lower hemoglobin, and vitals showing signs of hypotension, patient will likely not improve without intervention. will transition to comfort measures. will stop PPI. will work on inpatient hospice, informed case management. alf not comfortable taking patient home. working on SNF for hospice as patient is slowly deteriorating but stable. - Purred diet with thin liquids #Leukocytosis/History of Aspiration PNA - concern aspiration PNA given leukocytosis, exam and imaging - s/p Zosyn in ED-> will plan to transition to Rocephin Stable/Chronic: Epilepsy: Continue with home mediations-> diazepam prn, Depakote, Keppra Diet: Pureed, thin liquids -> permissive aspiration Code; DNR/DNI on comfort. VTE Prophylaxis: hold chemical with ?GI bleed discussed with case managemenr Admission and Anticipated Discharge Date Admission Date: November 12, 2024 Subjective 64 yo male on comfort measures. Patient is comfortable. Physical Exam Physical Exam: Constitutional: no acute distress HEENT: NCAT, no conjunctival injection CV: regular rhythm, no murmur appreciated, extremities well-perfused, no LE edema Resp: +rhonchi bases B/L no increased work of breathing GI: soft, nondistended, nontender, BS normoactive MSK: no gross deformities appreciated Skin: warm, dry, no rash appreciated Neuro: no focal neurologic deficit appreciated Results & Data Results & Data Vital Signs (Past 12 Hours) Vital Signs Pulse Resp Pulse Ox O2 Del Method 11/14/24 07:25 Room Air 11/14/24 07:13 85 18 94 Room Air PG Care Time/CCT Total # of Minutes Spent Total Time Spent with Patient: Total time spent is greater than 50% in coordination of care (as documented) at patient's floor/unit and/or counseling patient: Coding Level of Care Code 10375 SUB INP/OBS CARE 3/50MIN Diagnoses Aspiration pneumonia J69.0 Aspiration pneumonia type: unspecified Laterality: unspecified laterality Lung location: unspecified part of lung Adult failure to thrive R62.7 Anemia D64.9 Anemia type: unspecified type Nausea & vomiting R11.2 Vomiting type: unspecified Epilepsy G40.909 Cerebral palsy G80.9 Cerebral palsy type: unspecified type Time Spent (min) 50 (1) Aspiration pneumonia Aspiration pneumonia type: unspecified Laterality: unspecified laterality Lung location: unspecified part of lung Qualified Code(s): J69.0 - Pneumonitis due to inhalation of food and vomit (3) Anemia Anemia type: unspecified type Qualified Code(s): D64.9 - Anemia, unspecified (4) Nausea & vomiting Vomiting type: unspecified Qualified Code(s): R11.2 - Nausea with vomiting, unspecified (6) Cerebral palsy Cerebral palsy type: unspecified type Qualified Code(s): G80.9 - Cerebral palsy, unspecified
--- NOTE | 2024-11-15 10:00 | Hospitalist Progress Note ---
Date of Service November 15, 2024 Assessment & Plan (1) Aspiration pneumonia: (2) Adult failure to thrive: (3) Anemia: (4) Nausea & vomiting: (5) Epilepsy: (6) Cerebral palsy: Plan 64 year old male with a past medical history of intellectual disability, cerebral palsy, failure to thrive presenting after episode of dark brown emesis. Was up hospice up until about a month ago, goals of care still align with palliative/comfort, no family, POA is Radha (nurse at facility). 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 Given worsening labs and in VS that could be related to worsening anemia, possible patient is returning to hospice state and could qualify for discharge to hospice. CM following. #Anemia/Nausea, vomiting/?GI bleed - ?GI bleed vs SOB with emesis as presenting symptoms-> no further episodes. - zofran prn - as per discussion with Radha no transfusion/scope - Hgb ~3 in am labs; has stayed ~ 5 since about a year ago - hypotensive with pulse of ~80 bpm - Pantoprazole IV dc after move to [facility]; patient still eating well (with help) and no clear sign of pain - Purred diet with thin liquids #Leukocytosis/History of Aspiration PNA - Concern aspiration PNA given leukocytosis, exam and imaging - WBC now in normal range in am labs - Continue Ceftriaxone Stable/Chronic: Epilepsy: Continue with home mediations-> diazepam prn, Depakote, Keppra Diet: Pureed, thin liquids -> permissive aspiration Code; DNR/DNI VTE Prophylaxis: hold chemical with ?GI bleed Admission and Anticipated Discharge Date Admission Date: November 12, 2024 Supervising Physician Co-Signing Physician Notes I personally examined the patient and verified all dang points of history and exam, discussed case, and agree with decision making with Dr Weiss no new problems. case management/home working on feasibility of returning to home. Vitals noted, in general he is laying on his side appears to be curled up, chronically frailbut fortunately no acute distress. HEENT normocephalic atraumatic mucous membranes moist. Cardio shows his rates to be somewhat tachycardic. Breathing unlabored no accessory muscle use good effort. Skin without rashes, surprisingly does not appear all that pale, no icterus. Neuro with what appears to be chronic contractures. Nausea vomitingimproved Profound anemialikely relates to his upper GI processagain as noted his goals of care are consistent with not wanting anything invasive done including scopes/transfusions/etc.etc. for hospice again - case management and his home working on best fit for disposition Otherwise as above. Subjective Patient currently comfort measures. Caretakers with him on the bedside (Prosper and Guzman) and state patient has appeared comfortable. Physical Exam Physical Exam: Constitutional: no acute distress, thin HEENT: NCAT, no conjunctival injection CV: regular rhythm, no murmur appreciated, extremities well-perfused, no LE edema Resp: +rhonchi bases B/L no increased work of breathing GI: soft, nondistended, nontender, BS normoactive MSK: no gross deformities appreciated Skin: warm, dry, pale, no rash appreciated Neuro: no focal neurologic deficit appreciated Results & Data Results & Data Vital Signs (Past 12 Hours) Vital Signs Pulse Resp Pulse Ox O2 Del Method 11/15/24 08:02 99 Room Air 11/15/24 07:58 Room Air 11/15/24 06:53 79 18 93 Room Air 11/14/24 22:50 Room Air Resident Activity Tracking Resident Involvement: Resident Care Provided Care Provided: Adult Hospital Medicine (1) Aspiration pneumonia Aspiration pneumonia type: unspecified Laterality: unspecified laterality Lung location: unspecified part of lung Qualified Code(s): J69.0 - Pneumonitis due to inhalation of food and vomit (3) Anemia Anemia type: unspecified type Qualified Code(s): D64.9 - Anemia, unspecified (4) Nausea & vomiting Vomiting type: unspecified Qualified Code(s): R11.2 - Nausea with vomiting, unspecified (6) Cerebral palsy Cerebral palsy type: unspecified type Qualified Code(s): G80.9 - Cerebral palsy, unspecified
[2024-11-15] MEDS: bisacodyL 10 MG SUPP PR SCH (10:44)
--- NOTE | 2024-11-15 17:51 | Billing Data ---
Date of Service November 15, 2024 Coding Level of Care Code 44173 SUB INP/OBS CARE
[2024-11-15] MEDS: MoRPHine SULFATE 10 MG/0.5 ML UDP PO PRN (20:26)
[2024-11-16 08:23] VITALS: BP 112/61; TEMP 100.4
--- NOTE | 2024-11-16 09:37 | Hospitalist Progress Note ---
Date of Service November 16, 2024 Assessment & Plan (1) Aspiration pneumonia: (2) Adult failure to thrive: (3) Anemia: (4) Nausea & vomiting: (5) Epilepsy: (6) Cerebral palsy: Plan 64 year old male with a past medical history of intellectual disability, cerebral palsy, failure to thrive presenting after episode of dark brown emesis. Was up hospice up until about a month ago, goals of care still align with palliative/comfort, no family, POA is Radha (nurse at facility). 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 Given worsening labs and in VS that could be related to worsening anemia, possible patient is returning to hospice state and could qualify for discharge to hospice. CM following. #Anemia/Nausea, vomiting/?GI bleed - ?GI bleed vs SOB with emesis as presenting symptoms-> no further episodes. - zofran prn - as per discussion with Radha no transfusion/scope - Hgb ~3 in am labs; has stayed ~ 5 since about a year ago - hypotensive with pulse of ~80 bpm - Pantoprazole IV dc after move to [facility]; patient still eating well (with help) and no clear sign of pain - Purred diet with thin liquids #Leukocytosis/History of Aspiration PNA - Concern aspiration PNA given leukocytosis, exam and imaging - WBC now in normal range in am labs - Continue Ceftriaxone Stable/Chronic: Epilepsy: Continue with home mediations-> diazepam prn, Depakote, Keppra Diet: Pureed, thin liquids -> permissive aspiration Code; DNR/DNI Admission and Anticipated Discharge Date Admission Date: November 12, 2024 Supervising Physician Co-Signing Physician Notes I personally examined the patient and verified all dang points of history and exam, discussed case, and agree with decision making with Dr Weiss still working on dispo options. pt himself seems at recent baseline. did have some vomiting. Vitals noted, in general he is laying on his side appears to be curled up, chronically frailbut fortunately no acute distress. HEENT normocephalic atraumatic mucous membranes moist. Cardio shows his rates to be somewhat tachycardic. Breathing unlabored no accessory muscle use good effort. Skin without rashes, surprisingly does not appear all that pale, no icterus. Neuro with what appears to be chronic contractures. Nausea vomitingimproved overall. did have some today - but seems to be more or less in current baseline range Profound anemialikely relates to his upper GI processagain as noted his goals of care are consistent with not wanting anything invasive done including scopes/transfusions/etc.etc. for hospice again - case management and his home working on best fit for disposition Otherwise as above. Subjective Pt seen at bedside this morning. Resting comfortably. No concerns per precision assembler. Review of Systems Review of Systems: Unobtainable due to cognitive status Physical Exam Physical Exam: Constitutional: no acute distress HEENT: NCAT, no conjunctival injection CV: regular rhythm, no murmur appreciated, extremities well-perfused Resp: no increased work of breathing MSK: no gross deformities appreciated Skin: warm, dry, no rash appreciated Neuro: no focal neurologic deficit appreciated Results & Data Results & Data Vital Signs (Past 12 Hours) Vital Signs Temp Pulse Resp BP Pulse Ox O2 Del Method 11/16/24 08:32 88 18 95 Room Air 11/16/24 07:40 38 C H 117 H 18 112/61 89 L Room Air Resident Activity Tracking Resident Involvement: Resident Care Provided Care Provided: Adult Hospital Medicine (1) Aspiration pneumonia Aspiration pneumonia type: unspecified Laterality: unspecified laterality Lung location: unspecified part of lung Qualified Code(s): J69.0 - Pneumonitis due to inhalation of food and vomit (3) Anemia Anemia type: unspecified type Qualified Code(s): D64.9 - Anemia, unspecified (4) Nausea & vomiting Vomiting type: unspecified Qualified Code(s): R11.2 - Nausea with vomiting, unspecified (6) Cerebral palsy Cerebral palsy type: unspecified type Qualified Code(s): G80.9 - Cerebral palsy, unspecified
[2024-11-16] MEDS ORDERED: bisacodyL 10 MG SUPP PR PRN (09:48)
--- NOTE | 2024-11-16 18:33 | Billing Data ---
Date of Service November 16, 2024 Coding Level of Care Code 51935 SUB INP/OBS CARE
--- NOTE | 2024-11-17 07:23 | Hospitalist Progress Note ---
Date of Service November 17, 2024 Assessment & Plan (1) Aspiration pneumonia: (2) Adult failure to thrive: (3) Anemia: (4) Nausea & vomiting: (5) Epilepsy: (6) Cerebral palsy: Plan 64 year old male with a past medical history of intellectual disability, cerebral palsy, and failure to thrive presenting after episode of dark brown emesis - no family, POA is Radha (nurse at facility). #Anemia/Nausea, vomiting/?GI bleed Coffee ground emesis/SOB. Back to baseline. Plan to dispo back to [facility] with [facility] hospice services. No longer checking labs. zofran prn patient still eating well (with help) and no clear signs of pain purred diet with thin liquids #Advanced Care Planning Patient to return to the [facility] [place] with [facility] hospice services. No scope. No transfusions. Allow permissive aspiration. Comfort/palliative focused care. #Leukocytosis/History of Aspiration PNA Concern aspiration PNA given leukocytosis, exam and imaging. 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 Stable/Chronic: Epilepsy: Continue with home mediations - diazepam prn, Depakote, Keppra Diet: Pureed, thin liquids -> permissive aspiration Code; DNR/DNI, DIE FORGER Admission and Anticipated Discharge Date Admission Date: November 12, 2024 Supervising Physician Co-Signing Physician Notes I personally examined the patient and verified all dang points of history and exam, discussed case, and agree with decision making with Dr Watters caregiver at bedside. no new issues - was restless for a while but just fell asleep. Vitals noted, in general he is resting and appears comfortable no acute distress. HEENT normocephalic atraumatic mucous membranes moist. Breathing unlabored no accessory muscle use good effort. Skin without rashes, surprisingly does not appear all that pale, no icterus. Neuro with what appears to be chronic contractures. Nausea vomitingimproved overall. continue symptom care when needed Profound anemialikely relates to his upper GI processagain as noted his goals of care are consistent with not wanting anything invasive done including scopes/transfusions/etc.etc. for hospice again - case management and his home working on best fit for disposition - sounding to be his [facility] w hospice soon Otherwise as above. Subjective Patient seen at bedside this AM. Caregiver present and helping with feeding. No meaningful history provided. Review of Systems Review of Systems: See HPI Physical Exam Physical Exam: Gen: cachectic appearing patient in NAD HEENT: AT NC MMM Resp: no increased work of breathing CV: clinically well perfused Abd: non-distended MSK: no obvious deformities Skin: no rashes or bruising Neuro: alert and oriented Psych: appropriate mood and affect Resident Activity Tracking Resident Involvement: Resident Care Provided Care Provided: Adult [facility] Medicine (1) Aspiration pneumonia Aspiration pneumonia type: unspecified Laterality: unspecified laterality Lung location: unspecified part of lung Qualified Code(s): J69.0 - Pneumonitis due to inhalation of food and vomit (3) Anemia Anemia type: unspecified type Qualified Code(s): D64.9 - Anemia, unspecified (4) Nausea & vomiting Vomiting type: unspecified Qualified Code(s): R11.2 - Nausea with vomiting, unspecified (6) Cerebral palsy Cerebral palsy type: unspecified type Qualified Code(s): G80.9 - Cerebral palsy, unspecified
--- NOTE | 2024-11-17 14:53 | Billing Data ---
Date of Service November 17, 2024 Coding Level of Care Code 08202 SUB INP/OBS CARE
[2024-11-18] MEDS: MoRPHine SULFATE 2 MG/ML CARP IV PRN (02:43)
--- NOTE | 2024-11-18 07:15 | Hospitalist Progress Note ---
Date of Service November 18, 2024 Assessment & Plan (1) Aspiration pneumonia: (2) Adult failure to thrive: (3) Anemia: (4) Nausea & vomiting: (5) Epilepsy: (6) Cerebral palsy: Plan 64 year old male with a past medical history of intellectual disability, cerebral palsy, and failure to thrive presenting after episode of dark brown emesis - no family, POA is Radha (nurse at facility). #Anemia/Nausea, vomiting/?GI bleed Coffee ground emesis/SOB. Back to baseline. Plan to dispo back to [facility] with [facility] hospice services. No longer checking labs. zofran prn patient still eating well (with help) and no clear signs of pain purred diet with thin liquids #Advanced Care Planning Patient to return to the [place] with [facility] hospice services. No scope. No transfusions. Allow permissive aspiration. Comfort/palliative focused care. Added Zyrtec 5 mg at night as patient was scratching/itching overnight. #Leukocytosis/History of Aspiration PNA Concern aspiration PNA given leukocytosis, exam and imaging. 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 Stable/Chronic: Epilepsy: Continue with home mediations - diazepam prn, Depakote, Keppra Diet: Pureed, thin liquids -> permissive aspiration Code; DNR/DNI, VESSEL LINER Admission and Anticipated Discharge Date Admission Date: November 12, 2024 Supervising Physician Co-Signing Physician Notes I personally examined the patient and verified all dang points of history and exam, discussed case, and agree with decision making with Dr Watters caregiver at bedside. was somewhat restless overnight but ok now. Vitals noted, in general awake but peaceful makes eyecontact and also looks drowsy, no distress. HEENT normocephalic atraumatic mucous membranes moist. Breathing unlabored no accessory muscle use good effort. Skin without rashes, surprisingly does not appear all that pale, no icterus. Neuro with what appears to be chronic contractures. Nausea vomitingimproved overall. continue symptom alleviating care when needed Profound anemialikely relates to his upper GI processagain as noted his goals of care are consistent with not wanting anything invasive done including scopes/transfusions/etc.etc. for hospice again - case management and his home working on best fit for disposition - sounding to be his [facility] w hospice soon Otherwise as above. Subjective Patient seen at bedside this AM. Caregiver present and helping with feeding. No meaningful history provided. Review of Systems Review of Systems: See HPI Physical Exam 2 Physical Exam: Gen: cachectic appearing patient in NAD HEENT: AT NC MMM Resp: no increased work of breathing CV: clinically well perfused Abd: non-distended MSK: no obvious deformities Skin: no rashes or bruising Neuro: alert and oriented Psych: appropriate mood and affect Resident Activity Tracking Resident Involvement: Resident Care Provided Care Provided: Adult Hospital Medicine (1) Aspiration pneumonia Aspiration pneumonia type: unspecified Laterality: unspecified laterality Lung location: unspecified part of lung Qualified Code(s): J69.0 - Pneumonitis due to inhalation of food and vomit (3) Anemia Anemia type: unspecified type Qualified Code(s): D64.9 - Anemia, unspecified (4) Nausea & vomiting Vomiting type: unspecified Qualified Code(s): R11.2 - Nausea with vomiting, unspecified (6) Cerebral palsy Cerebral palsy type: unspecified type Qualified Code(s): G80.9 - Cerebral palsy, unspecified
[2024-11-18] MEDS: CALAMINE/PRAMOXINE LOTION 180 APPLN/180 ML BTL EXT PRN (09:59)
--- NOTE | 2024-11-18 18:23 | Billing Data ---
Date of Service November 18, 2024 Coding Level of Care Code 11785 SUB INP/OBS CARE
[2024-11-18 19:50] VITALS: O2SAT 96
[2024-11-18] MEDS: CETIRIZINE HCL 10 MG TABLET PO SCH (20:49)
[2024-11-19 07:18] VITALS: PULSE 90; RESP 12
--- NOTE | 2024-11-19 09:27 | Discharge Summary ---
Date of Service November 19, 2024 Admission HPI Per Admitting Provider 64 year old male with a past medical history of cerebral palsy, intellectual disability, bladder cancer presenting after vomiting this morning. Pt is non- verbal, History obtained from aid at bedside. One episode of emesis this morning dark brown in color. Last BM was this morning, history of constipation- suppository last night. Otherwise has been in normal health. Was on hospice up until about a month ago, when he was taking off because he was been stable. POYecenia Garcia states that generally palliative goals of care. Ok with antibiotics and IVF. ED course significant for: WBC= 18.9, Hgb= 5.6, plts= 532, CMP unremarkable. KUB with Bibasilar reticular airspace opacities likely chronic. Cannot exclude acute or recurrent aspiration.Gaseous distention in the upper abdomen most consistent with a dilated stomach. S/p Zosyn, 1L IVF Admission Exam Per Admitting Provider Constitutional: no acute distress HEENT: NCAT, no conjunctival injection CV: regular rhythm, no murmur appreciated, extremities well-perfused, no LE edema Resp: +rhonchi bases B/L no increased work of breathing GI: soft, nondistended, nontender, BS normoactive MSK: no gross deformities appreciated Skin: warm, dry, no rash appreciated Neuro: no focal neurologic deficit appreciated Principal Diagnosis ?UGIB, Anemia Discharge Exam Constitutional: no acute distress, thin HEENT: NCAT, no conjunctival injection CV: regular rhythm, no murmur appreciated, extremities well-perfused, no LE edema Resp: +rhonchi bases B/L no increased work of breathing GI: soft, nondistended, nontender, BS normoactive MSK: no gross deformities appreciated Skin: warm, dry, pale, no rash appreciated Neuro: no focal neurologic deficit appreciated Discharge Data Allergies Allergy/AdvReac Type Severity Reaction Status Date / Time metoclopramide Allergy Intermediate Agitation Verified 11/12/24 13:28 Consultations 11/12/24 11:00 ED Decision to Admit Stat Hospital Course (1) Aspiration pneumonia: (2) Adult failure to thrive: (3) Anemia: (4) Epilepsy: (5) Cerebral palsy: Plan 64 year old male with a past medical history of intellectual disability, cerebral palsy, and failure to thrive presenting after episode of dark brown emesis - no family, POA is Radha (nurse at facility). #Anemia/Nausea, vomiting/?GI bleed Coffee ground emesis/SOB. Back to baseline. Discharge back to [facility] with [facility] hospice services. Can continue zofran prn Continue purred diet with thin liquids #Advanced Care Planning Patient to return to the [facility] with [facility] hospice services. No scope. No transfusions. Allow permissive aspiration. Comfort/palliative focused care. Added Zyrtec 5 mg at night as patient was scratching/itching overnight. #Leukocytosis/History of Aspiration PNA Concern aspiration PNA given leukocytosis, exam and imaging. 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 Stable/Chronic: Epilepsy: Continue with home mediations - diazepam prn, Depakote, Keppra Diet: Pureed, thin liquids -> permissive aspiration Code; DNR/DNI, VETERINARY TECHNICIAN INSTRUCTOR Total Time Total Time Spent Total Time Spent (In Minutes): Kris Munoz DO, attending, spent 25 mins seeing the patient, reviewing the chart, and documenting today. Discharge Plan Discharge Items Patient Disposition: Transfer Long-Term Fac Reason For Visit: NAUSEA Discharge Diagnosis: UGIB?, Anemia Activity: Per Instructions section Non-emergency contact: Primary Care Provider Call non-emergency contact if: your symptoms worsen and your temperature is above 101.5 Follow-up/Referrals: Sofia Xie MD [Primary Care Provider] - Diet: Regular Diet Texture: Pureed (blended smooth) Addtl Attending Provider Instructions: You were admitted to the hospital due to experiencing significant nausea and vomiting that lead to poor oral intake. Given these symptoms as well as a very low blood count noted on your blood work, it's possible this may be related to a bleed in the upper parts of your gastrointestinal tract. To further investigate this, we discussed doing an endoscopy to assess that upper part of your GI tract and also discussed giving you a blood transfusion to manage your low blood count, however, this was deferred after discussion with your POA due to move to hospice. Therefore, we will be discharging you today back to [facility] facility with hospice care as coordinated by [facility]. Thank you for allowing us to participate in your care! Pending Studies at Discharge: No Stand-Alone Forms: My [facility] Skilled Items Patient informed of condition?: Yes DNR: Yes Discharge Level of Care: Skilled Communicable Disease: No Discharge Prognosis: Other Lines: None Urinary Catheter: No Medications and DC Order Prescriptions: Continued (DME) CHAP STICK See Rx Instructions .Route .MEDSUPPLY Qty: 1 3RF Rx Instructions: As needed (DME) Manual Wheelchair Device See Rx Instructions .Route Qty: 1 0RF Rx Instructions: WHEELCHAIR REPAIRS menthol-zinc oxide [Calmoseptine] 0.44-20.6 % ointment See Rx Instructions .ROUTE .COMPLEX Qty: 113 1RF Rx Instructions: apply thin layer of Calmoseptine to open area and cover with an Optifoam. (DME) Flex tilt wheel chair with foot rests and safety belt See Rx Instructions .Route .MEDSUPPLY Qty: 1 0RF Rx Instructions: to be repositioned Q2h (DME) Gel pad See Rx Instructions .Route .MEDSUPPLY Qty: 1 0RF Rx Instructions: Gel pad- to decrease pressure off his coccyx, buttocks and sacral area and aide in prevention of pressure wounds on his sacral and buttocks area (DME) safety vest with straps See Rx Instructions .Route .MEDSUPPLY Qty: 1 0RF Rx Instructions: As directed divalproex 125 mg capsule, delayed rel sprinkle 750 mg PO BID Qty: 360 11RF lorazepam 0.5 mg tablet 0.5 mg PO QAM Qty: 30 5RF Rx Instructions: 0.5 mg orally Take 1 tablet every AM; Can be crushed and given with applesauce budesonide 0.5 mg/2 mL suspension for nebulization 0.5 mg NEB BIDR Qty: 60 12RF clindamycin phosphate 1 % swab 1 applic topical DAILY Qty: 60 11RF Rx Instructions: for acne clotrimazole 1 % cream 1 applic topical BID PRN (Reason: Rash) Qty: 30 12RF docusate sodium [Stool Softener] 100 mg capsule 100 mg PO DAILY Qty: 90 3RF ipratropium-albuterol 0.5 mg-3 mg(2.5 mg base)/3 mL solution for nebulization 3 ml NEB DAILY PRN (Reason: Shortness Of Breath) Qty: 90 11RF ketoconazole 2 % shampoo 1 applic TOPICAL 2XWK Qty: 120 12RF Rx Instructions: USE SHAMPOO TO SCALP EVERY TUESDAY AND TUESDAY levetiracetam [Keppra] 750 mg tablet 1,500 mg PO BID 90 Days Qty: 360 3RF Rx Instructions: Can be crushed and given with applesauce. loratadine [Claritin] 10 mg tablet 10 mg PO DAILY Qty: 90 3RF Rx Instructions: Can be crushed and given with applesauce. Triple Antibiotic 3.5mg-400 unit- 5,000 unit/gram ointment 1 applic TOPICAL BID PRN (Reason: abrasions) Qty: 28.4 12RF pantoprazole [Protonix] 40 mg tablet,delayed release (DR/EC) 40 mg PO DAILY Qty: 90 3RF Rx Instructions: best to take 30-60 min prior to first meal Preparation H 0.25-14-74.9 % ointment 1 applic ID QID PRN (Reason: hemorroidal irritation) Qty: 57 11RF Rx Instructions: apply to hemorroids for irritation Saline Mist 0.65 % aerosol,spray 1 spray intranasal TID PRN (Reason: Dry Nasal Passages) Qty: 44 0RF [place] Saline Gel [place],Non-Aerosol 1 spray INTRANASAL BID Qty: 22 11RF Rx Instructions: apply to each nostril twice a day Aquaphor Healing 41 % ointment 1 applic TOPICAL HS Qty: 80 11RF Rx Instructions: apply to irritated skin (DME) Optifoam 6 X 6 " bandage See Rx Instructions .Route Qty: 100 5RF Rx Instructions: Apply topically to open areas as needed for irritation. Change as needed for soilage or displacement. (DME) Optifoam 4 X 4 " bandage See Rx Instructions .Route Qty: 100 5RF Rx Instructions: Apply topically to open areas as needed for irritation. Change as needed for soilage or displacement. tramadol 50 mg tablet 50 mg PO TID Qty: 90 5RF triamcinolone acetonide 0.1 % cream 1 applic TOPICAL BID PRN (Reason: rash) Qty: 30 6RF Rx Instructions: Do not apply in same spot for longer than two weeks. (DME) Hospital Bed w/ Alternating Pressure Pad Mattress See Rx Instructions .Route .MEDSUPPLY Qty: 1 0RF Rx Instructions: As directed to facilitate proper patient positioning and prevention of pressure ulcers (DME) Hospital Bed Homecare Misc See Rx Instructions .Route Qty: 1 0RF Rx Instructions: As directed semi electric bed lorazepam 1 mg tablet 1 mg PO HS Qty: 30 5RF Rx Instructions: 1mg orally at bedtime; can be crushed in applesauce (DME) BEDSIDE TABLE See Rx Instructions .Route .MEDSUPPLY Qty: 1 0RF Rx Instructions: As directed (DME) FALL MAT See Rx Instructions .Route .MEDSUPPLY Qty: 1 0RF Rx Instructions: As directed (DME) diaper,brief,adult,disposable Misc See Rx Instructions .ROUTE .MEDSUPPLY Qty: 200 11RF Rx Instructions: Small briefs (Uses 8 Daily) (DME) Alternating Pressure Pad Mattress See Rx Instructions .Route .MEDSUPPLY Qty: 1 0RF Rx Instructions: As directed for prevention of pressure ulcers (DME) nebulizer and compressor Device See Rx Instructions .Route Qty: 1 0RF Rx Instructions: As Directed, nebulizer and nebulizer supply kit (DME) Em Lift See Rx Instructions .Route .MEDSUPPLY Qty: 1 0RF Rx Instructions: As directed (DME) [place] [facility] [place] Instructions .Route Qty: 1 0RF Rx Instructions: As directed Lubriderm Daily Moisture Lotion 1 applic TOPICAL BID polyethylene glycol 3350 [ClearLax] 17 gram/dose powder 17 g PO QAM lip protective (padimate o) Stick 1 ea topical DAILY PRN (Reason: Dry Lips) loperamide [Imodium A-D] 2 mg capsule 2 - 4 mg PO UD MDD 4 DOSES/48 HOURS PRN (Reason: Diarrhea) Rx Instructions: Take 4mg by mouth at onset of loose stools, then 2mg after each loose bowel movement Enema 19-7 gram/118 mL enema 118 ml ID DAILY PRN (Reason: Constipation) Rx Instructions: INSERT 1 ENEMA RECTALLY ON DAY 4 WITH NO BOWEL MOVEMENT Debrox 6.5 % drops 2 drp OTB 3XWK Rx Instructions: TUES, THURS, & SAT. At 20:00 ondansetron 4 mg tablet,disintegrating 4 mg PO Q6H PRN (Reason: nausea and vomiting) Rx Instructions: Crush and give with applesause Total Block Clear SPF 65 lotion 1 ea TOPICAL DAILY PRN (Reason: Sun Exposure) Ensure Liquid 1 ea PO BID calcium carbonate-vitamin D3 [Oyster Shell Calcium-Vit D3] 500 mg-5 mcg (200 unit) tablet 1 tab PO DAILY acetaminophen 325 mg tablet 650 mg PO DIRECTED PRN (Reason: Pain/Fever) Rx Instructions: 650 mg orally; BID as a standing dose. Can also be given every 4 hours as needed for pain or fever. Max 8 tabs per day. bisacodyl 10 mg suppository 10 mg ID DAILY PRN (Reason: Constipation) Rx Instructions: Every 3 days as needed diazepam 5-7.5-10 mg kit 7.5 mg ID DIRECTED PRN (Reason: seizure activity) Rx Instructions: Give 1 dose rectally if seizure lasts longer than 5 minutes and call 911 acetaminophen 650 mg Suppository 650 mg ID Q4H PRN (Reason: Pain/Fever) Discharge Orders: Discharge Order (Routine); Ordered 11/19/24 Ordered By: Negar Weiss Admission Data Admit Date/Time: 11/12/24 11:32 Attending Provider: Kris Aguilar Admit Provider: Kristyn Pugh Primary Care Provider: Sofia Xie Other Providers: Jeremias Musa; [facility],Home Healthcare Other Interventions: Discharge Summary Assessment (RN) Last Done: 11/19/24 13:26 Supervising Physician Co-Signing Physician Notes ATTESTATION I also saw the patient and confirmed dang portions of the history and exam. I agree with the impression and plan in the resident documentation, and as summarized below. [facility] staff at bedside/ EXAM Awake, non verbal; no signs of distress IMPRESSION & PLAN Adult FTT Anemia Cerebral Palsy Nausea and vomiting, improved Epilepsy Plan is to return to intermediate with [facility] Discussed logistics with intermediate staff member Symptoms controlled at present; hospice in line with overall plan of care. Additional per resident documentation Resident Activity Tracking Resident Involvement: Resident Care Provided Care Provided: Adult Hospital Medicine
== END 2024-11-19 14:00 | disposition hospice, home (50) | DRG 377 ==
LOC: ED 09:16 → EDINP 11:32 → SUATTDRO 11:32 → 2W 11-13 00:16 → 3N 11-13 14:57